=== PATIENT | male | born 1975 | race Caucasian/White ===

== ENCOUNTER 2016-03-30 15:44 | Emergency (ER) | payer MEDICARE ==
[2016-03-30 16:16] VITALS: BP 138/76
--- NOTE | 2016-03-30 16:39 | UC ---
Skin Complaint HPI - HPI Summary HPI Summary: abcess on back of neck, been there for a few days, denies any other areaas. - History of Current Complaint Chief Complaint: UCSkin Time Seen by Provider: 03/30/16 16:23 Stated Complaint: LUMP ON BACK OF NECK Hx Obtained From: Patient Onset/Duration: Sudden Onset, Lasting Days Skin Exposure Onset/Duration: Days Ago Timing: Constant Onset Severity: Moderate Current Severity: Moderate Pain Intensity: 6 Pain Scale Used: 0-10 Numeric Location: Discrete - back of neck Character: Pruritus, Redness, Raised Aggravating: Touch Alleviating: Nothing Associated Signs & Symptoms: Positive: Negative - Allergy/Home Medications Allergies/Adverse Reactions: Allergies Allergy/AdvReac Type Severity Reaction Status Date / Time Ibuprofen Allergy Severe "MY Verified 03/30/16 16:17 KIDNEYS SHUT DOWN" [place] [employer] Allergy Hives/Diff. Verified 03/30/16 16:17 Breathing/I tching Dextromethorphan AdvReac Intermediate Nausea Verified 03/30/16 16:17 [From Mucinex DM] Guaifenesin [From Mucinex DM] AdvReac Intermediate Nausea Verified 03/30/16 16: 17 Yellow Dye [From Mucinex DM] AdvReac Intermediate Nausea Verified 03/30/16 16:17 Home Medications: Home Medications Dulaglutide [Trulicity] 03/30/16 [History] Glipizide [Glucotrol] 10 mg PO 03/30/16 [History] Review of Systems Constitutional: Negative Skin: Other - abcess on neck Eyes: Negative ENT: Negative Respiratory: Negative Cardiovascular: Negative Gastrointestinal: Negative Genitourinary: Negative Motor: Negative Neurovascular: Negative Musculoskeletal: Negative Neurological: Negative Psychological: Negative All Other Systems Reviewed And Are Negative: Yes PMH/Surg Hx/FS Hx/Imm Hx Endocrine History Of: Reports: Diabetes Denies: Thyroid Disease Cardiovascular History Of: Reports: Hypertension Denies: Cardiac Disorders Respiratory History Of: Reports: Asthma Denies: COPD GI/ History Of: Denies: Ulcer - Surgical History Surgical History: Yes Surgery Procedure, Year, and Place: RIGHT WRIST FRACTURE, SCREWS PLACED. - Family History Known Family History: Positive: Hypertension, Diabetes - Social History Alcohol Use: None Substance Use Type: None Smoking Status (MU): Never Smoked Tobacco Physical Exam Triage Information Reviewed: Yes Appearance: Well-Appearing, Well-Nourished, Pain Distress Vital Signs: Initial Vital Signs Temp 98.2 F 03/30/16 16:11 Pulse 89 03/30/16 16:11 Resp 16 03/30/16 16:11 BP 138/76 03/30/16 16:11 Pulse Ox 98 03/30/16 16:11 Vital Signs Reviewed: Yes Eye Exam: Normal Eyes: Positive: Conjunctiva Clear ENT Exam: Normal ENT: Positive: Normal ENT inspection, Pharynx normal, TMs normal Dental Exam: Normal Neck exam: Normal Neck: Positive: Supple, Nontender, No Lymphadenopathy Respiratory Exam: Normal Respiratory: Positive: Chest non-tender, Lungs clear, Normal breath sounds Cardiovascular Exam: Normal Cardiovascular: Positive: RRR, No Murmur, Pulses Normal Abdominal Exam: Normal Abdomen Description: Positive: Nontender, No Organomegaly, Soft Bowel Sounds: Positive: Present Musculoskeletal Exam: Normal Musculoskeletal: Positive: Strength Intact, ROM Intact, No Edema Neurological Exam: Normal Neurological: Positive: Alert, Muscle Tone Normal Psychological Exam: Normal Skin Exam: Normal Course/Dx - Course Course Of Treatment: history obtained, exam performed, medication prescribed. - Differential Diagnoses - Skin Complaint Differential Diagnoses: Abscess, Cellulitis, MRSA - Diagnoses Provider Diagnoses: abcess Discharge - Discharge Plan Condition: Stable Disposition: HOME Prescriptions: Sulfamethox/Trimethoprim DS* [Bactrim DS 800/160 TAB*] 1 tab PO BID #14 tab Additional Instructions: take the medication as prescribed. I recommend warm compresses a few times daily. Keep area covered if it starts to drain. take the full dose of medication. follow up with any worsening symptoms.
== END 2016-03-30 17:06 | disposition home or self-care (01) ==
LOC: UCEAST 15:44
DX: L02.11 Cutaneous abscess of neck (principal); Z88.6 Allergy status to analgesic agent
CPT/HCPCS: 99212; G0463

== ENCOUNTER 2016-04-03 22:02 | Inpatient (IN) | payer MEDICARE ==
[2016-04-03] MEDS ORDERED: Morphine INJ* 4 MG/ML 1 ML CARPUJECT IV ONE (22:58)
[2016-04-03] MEDS ORDERED: Ondansetron INJ* 2 MG/ML VIAL IV ONE (23:00)
--- NOTE | 2016-04-03 23:14 | ED ---
Skin Complaint - HPI Summary HPI Summary: Poorly controlled diabetic pt here with infection on posterior Rt neck x 1 week. Was seen by and provided w/ bactrim PO which he's been taking but feels he's getting worse. Redness and pain are spreading - he feels warmth and pain into his Rt shoulder muscle past few days. Denies fever but has had some chills. Denies N/V/D. Mom squeezed the area to try to express material. Wound is scabbed now - pt is not sure if anything came out of wound. DM - currently poorly controlled as he hasn't been able to afford his insulins ( Trulicity and lantus) over the past month. He has been taking oral meds ( metformin, januvia, and glipizide). Glucose has been in the 200's since stopping insulin but he's typically in the 90's when he's taking meds. He's not taking insulin as his insurance changed when he got and he is no longer able to afford this. - History of Current Complaint Chief Complaint: EDRashSkinAbscess Time Seen by Provider: 04/03/16 22:44 Stated Complaint: POSS BACK OF NECK INFECTION/R SOULDER HOT TO TOUCH Hx Obtained From: Patient Pain Intensity: 10 - Allergy/Home Medications Allergies/Adverse Reactions: Allergies Allergy/AdvReac Type Severity Reaction Status Date / Time Ibuprofen Allergy Severe "MY Verified 03/30/16 16:17 KIDNEYS SHUT DOWN" [place] Oil Allergy Hives/Diff. Verified 03/30/16 16:17 Breathing/I tching Dextromethorphan AdvReac Intermediate Nausea Verified 03/30/16 16:17 [From Mucinex DM] Guaifenesin [From Mucinex DM] AdvReac Intermediate Nausea Verified 03/30/16 16: 17 Yellow Dye [From Mucinex DM] AdvReac Intermediate Nausea Verified 03/30/16 16:17 PMH/Surg Hx/FS Hx/Imm Hx Previously Healthy: Yes Endocrine/Hematology History: Reports: Hx Diabetes Denies: Hx Thyroid Disease Cardiovascular History: Reports: Hx Hypertension Respiratory History: Reports: Hx Asthma Denies: Hx Chronic Obstructive Pulmonary Disease (COPD) GI History: Denies: Hx Ulcer History: Reports: Other Problems/Disorders - kidney "issues" when he takes ibuprofen - Cancer History Cancer Type, Location and Year: none - Surgical History Surgery Procedure, Year, and Place: RIGHT WRIST FRACTURE, SCREWS PLACED. - Immunization History Date of Tetanus Vaccine: UNKNOWN Infectious Disease History: No Infectious Disease History: Denies: Hx Hepatitis, Hx Human Immunodeficiency Virus (HIV), Traveled Outside the [place] in Last 30 Days - Family History Known Family History: Positive: Hypertension, Diabetes, Other - cancer - Social History Lives: With Family - Alcohol Use: None Hx Substance Use: No Substance Use Type: Reports: None Hx Tobacco Use: No Smoking Status (MU): Never Smoked Tobacco Review of Systems Positive: Chills. Negative: Fever Eyes: Negative ENT: Negative Negative: Chest Pain Negative: Shortness Of Breath Gastrointestinal: Negative Positive: no symptoms reported Positive: Myalgia - see HPI Skin: Other - see HPI Negative: Weakness, Paresthesia, Numbness Positive: Anxious All Other Systems Reviewed And Are Negative: Yes Physical Exam Triage Information Reviewed: Yes Vital Signs On Initial Exam: Initial Vitals Temp Pulse Resp BP Pulse Ox 97.4 F 96 20 146/70 100 04/03/16 22:20 04/03/16 22:20 04/03/16 22:20 04/03/16 22:20 04/03/16 22:20 Vital Signs Reviewed: Yes Appearance: Positive: Well-Appearing, Pain Distress - pain w/ sitting up, engaging cervical muscle/Rt UE at the shoulder - moving elbow, wrist and hand well, Obese Skin: Positive: Warm, Dry - 4.5cm area of indurated erythema w/ overlying small , crusted yellow pustules and 1 black scab on Rt posterior paracervical area - no fluctuation, no drainage - TTP; tenderness progresses from area of erythema to over Rt trapezius muscle which is flesh colored and w/o warmth or induration Head/Face: Positive: Normal Head/Face Inspection Eyes: Positive: Normal, EOMI, Conjunctiva Clear ENT: Positive: Hearing grossly normal, Pharynx normal Neck: Positive: Tenderness @ Respiratory/Lung Sounds: Positive: Clear to Auscultation, Breath Sounds Present - distant breath sounds d/t body habitus Cardiovascular: Positive: Normal - distant heart sounds d/t body habitus, S1, S2 Bowel Sounds: Positive: Present Musculoskeletal: Positive: Strength/ROM Intact - strength intact in UE's however cervical ROM limited d/t pain Neurological: Positive: Normal, Sensory/Motor Intact, Alert, Oriented to Person Place, Time, CN Intact II-III Psychiatric: Positive: Normal Diagnostics - Vital Signs Vital Signs Temp Pulse Resp BP Pulse Ox 04/03/16 22:20 97.4 F 96 20 146/70 100 - Laboratory Result Diagrams: 04/03/16 23:10 04/03/16 23:10 Lab Statement: Any lab studies that have been ordered have been reviewed, and results considered in the medical decision making process. Course/Dx - Course Course Of Treatment: Poorly controlled diabetic pt here w/ worsening skin infection of Rt side of neck, now moving into shoulder. Failed 1 week of PO bactrim outpt and has developed chills. Labs indicate infection as well and confirm hyperglycemia. Pt also developed a fever while here. CT cervical tissue/ spine pending. Pt may benefit from surgery consult pending results. IV fluids, pain med, antipyretic and anbxs ordered. Spoke w/ Dr. Rico who will admit. - Differential Diagnoses - Skin Complaint Differential Diagnoses: Abscess, Cellulitis, MRSA - Diagnoses Provider Diagnoses: Cellulitis and abscess of neck - Physician Notifications Discussed Care Of Patient With: Dr. Hanks. Dr. Rico Discharge - Discharge Plan Condition: Stable Disposition: ADMITTED TO [facility] Referrals: Lise Davis MD [Primary Care Provider] -
[2016-04-03 23:30] LABS: Hematocrit 45 % (42-52); Hemoglobin 14.6 g/dl (14.0-18.0); Mean Corpuscular HGB Conc 32 g/dl (31-36); Mean Corpuscular Hemoglobin 27 pg (27-31); Mean Corpuscular Volume 84 fL (80-94); Mean Platelet Volume 8 um3 (7.4-10.4); Red Blood Count 5.38 10^6/ul (4.0-5.4); Red Cell Distribution Width 16 % (10.5-15); White Blood Count 18.2 10^3/ul (3.5-10.8)
[2016-04-03 23:36] LABS: Albumin 4.1 g/dL (3.2-5.2); BUN/Creatinine Ratio 20.7 (8-20); C Reactive Protein 201.94 mg/L (< 5.00); Calcium 9.4 mg/dL (8.6-10.3); EGFR African American 117.8 (>60); EGFR Non-African American 91.6 (>60); Globulin 3.1 g/dL (2-4); Total Bilirubin 0.5 mg/dL (0.2-1.0); Total Protein 7.2 g/dL (6.4-8.9)
[2016-04-03 23:46] LABS: Potassium 4.1 mmol/L (3.5-5.0)
[2016-04-03] MEDS ORDERED: Vancomycin(*) 1,000 MG in NS 0.9% 250 ML* 250 ML IVPB ONE (23:55)
[2016-04-03] MEDS ORDERED: Piperac/Tazob 3.375 gm in NS* 3.375 GM/100 ML BAG IVPB ONE (23:55)
[2016-04-04] MEDS ORDERED: Iodixanol* (CONTRAST) 320 MG/ML 100 ML SDV IV ONE (00:07)
[2016-04-04] MEDS ORDERED: Acetaminophen TAB* 325 MG PO ONE (00:10)
[2016-04-04] MEDS: NS 0.9% 1000 ML* 2,000 ML IV ONE (00:26)
[2016-04-04] MEDS ORDERED: Albuterol HFA INHALER* 8 gm MDI INH PRN (01:49)
[2016-04-04] MEDS ORDERED: Piperac/Tazob 3.375 gm in NS* 3.375 GM/100 ML BAG IVPB ONE (01:54)
[2016-04-04] MEDS ORDERED: Dextrose 50% Syringe 50 ML* 25 GM/50 ML SYRINGE IV PUSH PRN (01:54)
[2016-04-04] MEDS ORDERED: Morphine INJ* 4 MG/ML 1 ML CARPUJECT IV PRN ×2 (01:54→04:30)
[2016-04-04] MEDS ORDERED: Piperac/Tazob 3.375 gm in NS* 3.375 GM/100 ML BAG IVPB SCH (05:00)
[2016-04-04] MEDS: Heparin VIAL(*) 5000 UNITS/ML VIAL (FIVE THOUSAND) SUBCUT SCH ×3 (05:10→21:25)
[2016-04-04] MEDS: Piperac/Tazob 3.375 gm in NS* 3.375 GM/100 ML BAG IVPB SCH ×2 (05:10→12:08)
[2016-04-04 08:18] LABS: Hematocrit 40 % (42-52); Hemoglobin 12.9 g/dl (14.0-18.0); Mean Corpuscular HGB Conc 32 g/dl (31-36); Mean Corpuscular Hemoglobin 27 pg (27-31); Mean Corpuscular Volume 84 fL (80-94); Mean Platelet Volume 7 um3 (7.4-10.4); Red Blood Count 4.79 10^6/ul (4.0-5.4); Red Cell Distribution Width 16 % (10.5-15); White Blood Count 14.9 10^3/ul (3.5-10.8)
[2016-04-04 08:23] LABS: BUN/Creatinine Ratio 17.1 (8-20); Calcium 8.3 mg/dL (8.6-10.3); EGFR African American 134.5 (>60); EGFR Non-African American 104.6 (>60); Potassium 4.1 mmol/L (3.5-5.0)
[2016-04-04] MEDS: Insulin LISPRO* 1 UNITS UNIT SUBCUT SCH ×4 (08:59→22:11)
[2016-04-04] MEDS ORDERED: BuPROPion XL* 150 MG TAB.XL PO SCH (09:00)
[2016-04-04] MEDS: Mometasone/Formoter 200/5 MDI INH SCH ×2 (09:01→21:25)
[2016-04-04] MEDS: Lisinopril TAB* 10 MG PO SCH (09:01)
[2016-04-04] MEDS: Allopurinol TAB* 100 MG PO SCH ×2 (09:01→21:25)
[2016-04-04] MEDS: Cetirizine* 10 MG TAB PO SCH (09:01)
--- NOTE | 2016-04-04 09:02 | RAD ---
Indication: RIGHT posterior cervical infection extending into the RIGHT trapezius. Assess for extent of infection/abscess. Diabetic. Comparison: No relevant prior exams available on the [facility]. Technique: Contrast enhanced CT neck with 50 mL Visipaque 320 IV contrast. Multiplanar reformation. Report: Contrast enhancement appears suboptimal. RIGHT posterior midline to far RIGHT lateral posterior neck soft tissue inflammatory change with increased density in the subcutaneous tissue plane measuring up to 7 cm transverse by 2.7 cm AP by 10 cm cephalocaudal extending from the external occipital protuberance superiorly through the C3 level inferiorly. Associated dermal thickening. Involvement of the fascia and superficial muscles at the RIGHT posterior triangle and minimal involvement at the cephalad margin of the trapezius. Mild extension of the inflammatory process across the midline. No loculated abscess collection evident. No additional focus of soft tissue inflammatory change evident. Negative for lymphadenopathy by short axis size criteria. Mucosal thickening at the maxillary sinuses. Negative for paranasal sinus fluid levels. Negative for suspicious osseous lesions. IMPRESSION: The constellation of findings is consistent with RIGHT posterior neck cellulitis with extension to the superficial aspect of the posterior triangle skeletal muscular compartment with mild extension across the midline as described. No loculated abscess evident however suboptimal contrast enhancement mildly limits assessment. If clinically indicated consider repeat contrast-enhanced CT.
[2016-04-04] MEDS: BuPROPion XL* 300 MG TAB.XL PO SCH (09:11)
[2016-04-04] MEDS: Nystatin TOP POWDER* 15 GM BTL TOPICAL SCH ×2 (09:58→21:26)
[2016-04-04] MEDS ORDERED: Vancomycin(*) 1,250 MG in NS 0.9% 250 ML* 250 ML IVPB SCH (10:00)
--- NOTE | 2016-04-04 10:26 | HP ---
HISTORY AND PHYSICAL: DATE OF ADMISSION: 04/04/16 CHIEF COMPLAINT: Neck pain. HISTORY OF PRESENT ILLNESS: The patient is a 41-year-old gentleman who says about 2 weeks ago, he thinks he actually had a pimple that he scratched or tried to pop and it became worse and worse on the back of his neck. About 1 week ago, he noticed it was herrera and turning his neck was so painful. He went to his doctor and he got Bactrim, but he said it did not help. He then went to his mother who tried to squeeze it and it became significantly worse, hard, and quite painful. He has developed fevers, but no chills. He came to the ER today, was thought to have a furuncle on the back of his neck. PAST MEDICAL HISTORY: Significant for diabetes mellitus, hypertension, asthma, sleep apnea, depression, and gout. CURRENT MEDICATIONS: 1. Albuterol inhaler 2 puffs every 4 hours as needed. 2. Lantus insulin 30 units subcu at bedtime. 3. Invokana 1 tablet daily. 4. Glimepiride 2 mg twice daily. 5. Allopurinol 200 mg twice daily. 6. Advair Diskus 500/50 one puff twice daily. 7. Quinapril 20 mg daily. 8. Claritin 1 tablet daily. 9. Metformin 1000 mg twice daily. 10. Wellbutrin 75 mg twice daily. 11. Trulicity injection weekly. ALLERGIES: He has an allergy/adverse reaction to IBUPROFEN, ORANGE OIL, DEXTROMETHORPHAN, GUAIFENESIN, and YELLOW DYE. FAMILY HISTORY: Father is alive in his 60s, alive and well; mother is alive in her 60s, has hypertension, heart problem, and diabetes. SOCIAL HISTORY: No tobacco, alcohol, or recreational drug use. 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 He is . He has a stepchild. His , Alida Urbina, is his healthcare proxy. REVIEW OF SYSTEMS: A 14-point review of systems was completed with the patient. All pertinent positives and negatives are in the history of present illness, otherwise is negative. PHYSICAL EXAMINATION GENERAL: A pleasant gentleman, lying in bed, in no acute distress. VITAL SIGNS: Temperature 97.9 degrees, heart rate 82 beats per minute, respiratory rate 20 breaths per minute, pulse ox 97%, blood pressure 121/51. HEENT: Normocephalic, atraumatic. Pupils are equal, round, and reactive to light. Moist mucous membranes. NECK: Supple. No JVD, bruits, or palpable thyroid. He has a large, indurated , warm, erythematous area on the back of the patient's neck measuring at least 3 cm in diameter. CHEST: Clear to auscultation and percussion bilaterally. CARDIOVASCULAR: S1, S2 appreciated. ABDOMEN: Positive bowel sounds in all 4 quadrants. Morbidly obese. No rebound , no guarding, no rigidity. EXTREMITIES: No cyanosis or clubbing. He has got +2 pulses bilaterally. NEUROLOGIC: Alert and oriented x3. Moves all extremities. SKIN: Other than the aforementioned furuncle, no other abnormalities. DIAGNOSTIC STUDIES/LAB DATA: White count 18.2, hemoglobin 14.6, hematocrit 45 , platelets are 218. Sodium 124, potassium 4.1, chloride 95, CO2 18, BUN 19, creatinine 0.92, glucose 207. CRP is 201.94. Neck CT results are pending. ASSESSMENT AND PLAN: 1. Furuncle. I believe this is caused most likely by staph. For now, we will place him on vanc and Zosyn. May need surgical consult for I and D. Morphine p.r.n. for pain. If no improvement, may benefit from ID consult. 2. Depression, stable. Continue Wellbutrin. 3. Diabetes mellitus. Hold oral hyperglycemics. Place him on fingersticks with sliding scale insulin and continue Lantus dose. 4. Gout. Continue allopurinol. 5. Hypertension. Continue current regimen. Blood pressure adequately controlled. 6. FEN. Consistent carb diet. 7. DVT prophylaxis. Heparin subcu. 8. The patient is a full code. TIME SPENT: Over 80 minutes were spent on this H and P, more than 45 minutes were spent in direct [id number] contact with the patient in evaluation, physical exam, counseling, and coordination of care. CC: Dr. Davis * [id number]/[facility] #: [id number] MTDD
[2016-04-04] MEDS ORDERED: Acetaminophen TAB* 325 MG PO PRN (11:09)
--- NOTE | 2016-04-04 11:12 | PN ---
Subjective Date of Service: 04/04/16 Interval History: patient reports continued significant pain and tenderness at the back of his head. Reports it is possible there has been extension of swelling to right neck/ face. Denies difficulty swallowing. No further fevers/chills today. No N/V/D. Patient reports this started as what he thinks was a pimple 3 weeks ago, his mother tried to "pop it" several days ago and since has become more painful and has had fever and chills. Objective Active Medications: Albuterol (Ventolin Hfa Inhaler*) 2 puff INH Q4H PRN PRN Reason: SOB/WHEEZING Allopurinol (Zyloprim Tab*) 200 mg PO BID [facility] Last Admin: 04/04/16 09:01 Dose: 200 mg Bupropion HCl (Bupropion Xl*) 300 mg PO DAILY [facility] Last Admin: 04/04/16 09:11 Dose: 300 mg Cetirizine HCl (Zyrtec*) 10 mg PO DAILY [facility] Last Admin: 04/04/16 09:01 Dose: 10 mg Dextrose (D50w Syringe 50 Ml*) 12.5 gm IV PUSH .FOR FS < 60 - SS PRN PRN Reason: FS < 60 Heparin Sodium (Porcine) (Heparin Vial(*)) 5,000 units SUBCUT Q8HR [facility] Last Admin: 04/04/16 05:10 Dose: 5,000 units Vancomycin HCl 1,250 mg/ (Sodium Chloride) 250 mls @ 166.667 mls/hr IVPB Q8H [facility] PRN Reason: Protocol Last Admin: 04/04/16 09:52 Dose: 166.667 mls/hr Piperacillin Sod/Tazobactam Sod (Zosyn 3.375 Gm In Ns Premix*) 3.375 gm in 100 mls @ 200 mls/hr IVPB Q6H [facility] Last Admin: 04/04/16 05:10 Dose: 200 mls/hr Insulin Glargine (Lantus(*)) 30 units SUBCUT BEDTIME [facility] Insulin Human Lispro (Humalog*) 0 units SUBCUT ACHS [facility] PRN Reason: Protocol Last Admin: 04/04/16 08:59 Dose: 3 units Lisinopril (Prinivil Tab*) 20 mg PO DAILY [facility] Last Admin: 04/04/16 09:01 Dose: 20 mg Mometasone Furoate/Formoterol Fumar (Dulera 200/5 Mdi*) 2 puff INH BID [facility] Last Admin: 04/04/16 09:01 Dose: 2 puff Nystatin (Nystatin Top Powder*) 1 applic TOPICAL BID [facility] Last Admin: 04/04/16 09:58 Dose: 1 applic Pharmacy Profile Note (Vancomycin Trough Check) 1 note FOLLOW UP 0930 ONE Stop: 04/05/16 09:31 Vital Signs 04/04/16 04/04/16 04/04/16 02:00 02:23 02:30 Temperature Pulse Rate 95 95 89 Respiratory Rate Blood Pressure 101/40 108/59 110/47 (mmHg) O2 Sat by Pulse 95 94 95 Oximetry 04/04/16 04/04/16 04/04/16 03:30 04:37 05:04 Temperature 97.9 F Pulse Rate 83 Respiratory 20 20 18 Rate Blood Pressure 121/51 (mmHg) O2 Sat by Pulse 97 Oximetry 04/04/16 04/04/16 04/04/16 06:04 07:25 08:00 Temperature 98.5 F Pulse Rate 85 Respiratory 18 20 20 Rate Blood Pressure 134/51 (mmHg) O2 Sat by Pulse 98 Oximetry Oxygen Devices in Use Now: None Appearance: morbidly obese male laying in bed A+O x3 in NAD Eyes: No Scleral Icterus, PERRLA Ears/Nose/Mouth/Throat: NL Teeth, Lips, Gums, Mucous Membranes Moist Neck: NL Appearance and Movements; NL JVP Respiratory: Symmetrical Chest Expansion and Respiratory Effort, Clear to Auscultation Cardiovascular: NL Sounds; No Murmurs; No JVD, RRR, No Edema Abdominal: NL Sounds; No Tenderness; No Distention Lymphatic: No Cervical Adenopathy Extremities: No Edema, No Clubbing, Cyanosis Skin: - - posterior neck large area of erythema very tender to touch with scabbed area on lower portion -also with mild edema and tenderness down to left trapeze muscle and edema/tenderness to right lateral neck/face. Neurological: Alert and Oriented x 3, NL Sensation, NL Gait, NL Muscle Strength and Tone Lines/Tubes/Other Access: Clean, Dry and Intact Peripheral IV Nutrition: Taking PO's Result Diagrams: 04/04/16 08:01 04/04/16 08:01 Assess/Plan/Problems-Billing Assessment: 41 yo male with a PMH of morbid obesity, HTN, asthma, sleep apnea, and depression who presented to the ED on 04/03 with c/o neck pain found to have an abscess/cellulitis. - Patient Problems (1) cellulitis/abscess Comment: - No further fevers. Leukocytosis trending down. - Neck soft CT w/ showing no loculated area but is showing extension to the superfical aspect of the posterior triangle skeletal mucsular compartment with mild extension across the midline. May benefit from repeat contrast-enhanced CT - surgery consult - plan for I&D later today. Send wound cx - continue zosyn/vanco - blood cx pending - ID consult 04/05 (2) Diabetes Comment: - IDDM type 2- non-compliant with home medication due to cost. - FSBG ACHS with lispro SS and Lantus 30 units bedtime. Hold home oral medications. - check HgA1C - social work consult - Referral to [facility] (3) Morbid obesity with BMI of 60.0-69.9, adult (4) Asthma Comment: - controlled. - continue Dulera BID and albuterol prn (5) HTN (hypertension) Comment: - controlled. autosub Quinapril for Lisinopril (6) Sleep apnea Comment: - continue home cpap (7) Depression Comment: - continue wellbutrin (8) DVT prophylaxis Comment: - HSQ (9) Full code status Status and Disposition: inpatient with cellulitis and possible abscess requiring IV abx.
[2016-04-04] MEDS ORDERED: Morphine INJ* 2 MG/ML 1 ML CARPUJECT IV ONE (12:00)
[2016-04-04] MEDS: ceFAZolin 2 GM PREMIX (*) 2 GM/50 ML BAG IVPB SCH ×2 (17:22→22:16)
[2016-04-04] MEDS: oxyCODONE TAB* 5 MG TAB PO PRN (21:25)
[2016-04-04] MEDS: Insulin GLARGINE(*) 1 UNITS UNIT SUBCUT SCH (22:11)
--- NOTE | 2016-04-05 02:58 | OP ---
DATE OF OPERATION: 04/04/16 - ROOM #351 DATE OF : 79 SURGEON: Aly Curiel MD PRE-OP DIAGNOSIS: POST-OP DIAGNOSIS: OPERATIVE PROCEDURE: HISTORY/INDICATION FOR PROCEDURE: The patient is a 41-year-old male, who is a hypertensive diabetic with morbid obesity, who presents with increasing pain and swelling in the back of his neck. He tried to drain this at home without success and now presents with increasing pain, swelling and redness. He does not recall having had any procedure or any surgery in this region before. He thinks there was like a little pimple or something there before. On examination today, he is morbidly obese. On the back of the neck, there is an area of cellulitis covering at least 15 x 20 cm. In the center is an area of induration that is at least 10 x 7 cm and in the center of this is an area of at least 3 x 4 cm, which has a central scabby area and multiple little punctate areas of purulence, this suggests more of a furunculosis. I discussed this with him and I recommend incision and drainage of this. I did review the imaging, which is equivocal for abscess, but I think clinically this needs to be opened up and cultured, so I discussed this with him and he is agreeable to this approach. DESCRIPTION OF PROCEDURE: Therefore, the area was prepped with Betadine, local anesthetic 1% plain lidocaine was utilized and approximately 3-cm incision was created. Purulent material was forthcoming. I then wedged out a little piece of the tissue and sent that in a sterile container for culture as well. After the pus was expressed, the cavity was packed with a corner of a 4x4 followed by a bulky gauze dressing and we will continue to follow him along with you. CC: Dr. Davis * [id number]/[facility] #: [id number] TAVO
[2016-04-05] MEDS: ceFAZolin 2 GM PREMIX (*) 2 GM/50 ML BAG IVPB SCH ×4 (05:25→22:53)
[2016-04-05] MEDS: Heparin VIAL(*) 5000 UNITS/ML VIAL (FIVE THOUSAND) SUBCUT SCH ×3 (05:25→21:22)
[2016-04-05] MEDS: oxyCODONE TAB* 5 MG TAB PO PRN ×4 (05:25→23:14)
--- NOTE | 2016-04-05 06:50 | PN ---
Subjective Date of Service: 04/05/16 Interval History: pt reports he sleep fairly well last night for the first time in weeks. Continues to have significant pain at the back of his neck but reports it is slightly better today. No fever, chills, N/V/D. Reports good appetite. Is interested in following up with [facility] as an outpt Objective Active Medications: Acetaminophen (Tylenol Tab*) 650 mg PO Q6H PRN PRN Reason: FEVER/PAIN Last Admin: 04/04/16 16:53 Dose: 650 mg Albuterol (Ventolin Hfa Inhaler*) 2 puff INH Q4H PRN PRN Reason: SOB/WHEEZING Allopurinol (Zyloprim Tab*) 200 mg PO BID [facility] Last Admin: 04/04/16 21:25 Dose: 200 mg Bupropion HCl (Bupropion Xl*) 300 mg PO DAILY [facility] Last Admin: 04/04/16 09:11 Dose: 300 mg Cetirizine HCl (Zyrtec*) 10 mg PO DAILY [facility] Last Admin: 04/04/16 09:01 Dose: 10 mg Dextrose (D50w Syringe 50 Ml*) 12.5 gm IV PUSH .FOR FS < 60 - SS PRN PRN Reason: FS < 60 Heparin Sodium (Porcine) (Heparin Vial(*)) 5,000 units SUBCUT Q8HR [facility] Last Admin: 04/05/16 05:25 Dose: 5,000 units Cefazolin Sodium/Dextrose (Kefzol Premix(*)) 2 gm in 50 mls @ 100 mls/hr IVPB Q6H [facility] Last Admin: 04/05/16 05:25 Dose: 100 mls/hr Insulin Glargine (Lantus(*)) 30 units SUBCUT BEDTIME [facility] Last Admin: 04/04/16 22:11 Dose: 30 units Insulin Human Lispro (Humalog*) 0 units SUBCUT ACHS [facility] PRN Reason: Protocol Last Admin: 04/04/16 22:11 Dose: 3 units Lisinopril (Prinivil Tab*) 20 mg PO DAILY [facility] Last Admin: 04/04/16 09:01 Dose: 20 mg Mometasone Furoate/Formoterol Fumar (Dulera 200/5 Mdi*) 2 puff INH BID [facility] Last Admin: 04/04/16 21:25 Dose: 2 puff Nystatin (Nystatin Top Powder*) 1 applic TOPICAL BID [facility] Last Admin: 04/04/16 21:26 Dose: 1 applic Oxycodone HCl (Roxycodone Tab*) 5 mg PO Q4H PRN PRN Reason: PAIN Last Admin: 04/05/16 05:25 Dose: 5 mg Pharmacy Profile Note (Vancomycin Trough Check) 1 note FOLLOW UP 929 ONE Stop: 04/05/16 09:31 Vital Signs 04/04/16 04/04/16 04/04/16 07:25 08:00 11:10 Temperature 98.5 F 98.9 F Pulse Rate 85 91 Respiratory 20 20 20 Rate Blood Pressure 134/51 128/46 (mmHg) O2 Sat by Pulse 98 96 Oximetry 04/04/16 04/04/16 04/04/16 12:25 13:25 15:46 Temperature 99.0 F Pulse Rate 72 Respiratory 18 18 20 Rate Blood Pressure 118/50 (mmHg) O2 Sat by Pulse 95 Oximetry 04/04/16 04/04/16 04/04/16 16:16 20:09 20:45 Temperature 99.0 F 98.9 F Pulse Rate 72 89 Respiratory 20 16 24 Rate Blood Pressure 118/50 136/67 (mmHg) O2 Sat by Pulse 95 99 Oximetry 04/04/16 04/04/16 04/04/16 21:25 22:30 23:25 Temperature Pulse Rate Respiratory 20 20 20 Rate Blood Pressure (mmHg) O2 Sat by Pulse Oximetry 04/04/16 04/05/16 04/05/16 23:58 03:33 05:25 Temperature 98.9 F 98.6 F Pulse Rate 87 82 Respiratory 20 18 20 Rate Blood Pressure 111/44 103/47 (mmHg) O2 Sat by Pulse 98 98 Oximetry Appearance: morbid obese male sitting up in a chair in NAD. A+Ox3 Eyes: No Scleral Icterus, PERRLA Ears/Nose/Mouth/Throat: NL Teeth, Lips, Gums, Mucous Membranes Moist Neck: NL Appearance and Movements; NL JVP Respiratory: Symmetrical Chest Expansion and Respiratory Effort, Clear to Auscultation Cardiovascular: NL Sounds; No Murmurs; No JVD, RRR Abdominal: NL Sounds; No Tenderness; No Distention, - - obese Extremities: No Clubbing, Cyanosis Skin: - - [id number] edematous area at posterior left neck, very tender, incision from I&D packed with gauze with dried blood. tenderness to right lateral neck, left trap muscle Neurological: Alert and Oriented x 3, NL Sensation, NL Gait, NL Muscle Strength and Tone Lines/Tubes/Other Access: Clean, Dry and Intact Peripheral IV Nutrition: Taking PO's Result Diagrams: 04/05/16 06:50 04/05/16 06:50 Microbiology and Other Data: Microbiology 04/04/16 12:30 Skin and Soft Tissue MRSA/MSSA (PCR - Final Neck Mrsa Negative S.aureus Positive Gram Stain - Final 04/04/16 12:30 Wound Gram Stain - Final Tissue - Not Otherwise Specified Skin and Soft Tissue MRSA/MSSA (PCR - Final Mrsa Negative S.aureus Positive Assess/Plan/Problems-Billing Assessment: 41 yo male with a PMH of morbid obesity, HTN, asthma, sleep apnea, and depression who presented to the ED on 04/03 with c/o neck pain found to have an abscess/cellulitis. - Patient Problems (1) cellulitis/abscess Comment: - No further fevers. Leukocytosis trending down. - Neck soft CT w/ showing no loculated area but is showing extension to the superfical aspect of the posterior triangle skeletal mucsular compartment with mild extension across the midline. - appreciate surgery consult - I&D on 04/04, cx growing staph. - blood cx no growth Day 1 - ID consult 04/05 - continue Ancef (2) Diabetes Comment: - uncontrolled - IDDM type 2- non-compliant with home medication due to cost. - FSBG ACHS with lispro SS and Lantus 30 units bedtime. Hold home oral medications. - HgA1C 8.8 down form 10.8 last year - social work consult for help with medications - Referral to [facility] (3) Morbid obesity with BMI of 60.0-69.9, adult Comment: - referral to [facility] (4) Asthma Comment: - controlled. - continue Dulera BID and albuterol prn (5) HTN (hypertension) Comment: - controlled. autosub Quinapril for Lisinopril (6) Sleep apnea Comment: - continue home cpap (7) Depression Comment: - continue wellbutrin (8) DVT prophylaxis Comment: - HSQ (9) Full code status Status and Disposition: inpatient with cellulitis/abscess requiring IV abx. ID consult pending. Pt will go home at discharge. Possible [facility]NS referral.
[2016-04-05 07:26] LABS: Hematocrit 40 % (42-52); Hemoglobin 12.8 g/dl (14.0-18.0); Mean Corpuscular HGB Conc 32 g/dl (31-36); Mean Corpuscular Hemoglobin 27 pg (27-31); Mean Corpuscular Volume 84 fL (80-94); Mean Platelet Volume 8 um3 (7.4-10.4); Red Blood Count 4.76 10^6/ul (4.0-5.4); Red Cell Distribution Width 16 % (10.5-15)
[2016-04-05 07:35] LABS: BUN/Creatinine Ratio 16.9 (8-20); Calcium 8.6 mg/dL (8.6-10.3); EGFR African American 158.8 (>60); EGFR Non-African American 123.5 (>60)
[2016-04-05] MEDS: BuPROPion XL* 300 MG TAB.XL PO SCH (08:54)
[2016-04-05] MEDS: Allopurinol TAB* 100 MG PO SCH ×2 (08:54→21:18)
[2016-04-05] MEDS: Cetirizine* 10 MG TAB PO SCH (08:54)
[2016-04-05] MEDS: Insulin LISPRO* 1 UNITS UNIT SUBCUT SCH ×4 (08:54→21:19)
[2016-04-05] MEDS: Lisinopril TAB* 10 MG PO SCH (08:54)
[2016-04-05] MEDS: Mometasone/Formoter 200/5 MDI INH SCH ×2 (08:56→21:22)
[2016-04-05] MEDS ORDERED: Vancomycin Trough Check NOTE FOLLOW UP ONE (09:30)
[2016-04-05] MEDS: Nystatin TOP POWDER* 15 GM BTL TOPICAL SCH ×2 (13:30→21:22)
--- NOTE | 2016-04-05 16:50 | CONS ---
CONSULTATION REPORT: DATE OF CONSULT: 04/05/16 REQUESTING PROVIDER: Terrie Nolna NP CONSULTING SERVICE: Infectious Disease. REASON FOR CONSULTATION: Posterior neck abscess. IMPRESSION: 1. Posterior neck abscess with associated cellulitis and infective myositis status post incision and debridement. Gram stain showed gram-positive cocci. PCR positive for Staph aureus and negative for MRSA. The cultures pending. Blood cultures negative. 2. Diabetes. 3. Morbid obesity. RECOMMENDATIONS: Continue Ancef 2 g IV every 6 hours to cover Staph aureus as you have done. I will follow the range of motion of his neck for signs and symptoms of improvement in his myositis; if not improving, would consider clindamycin, repeat imaging to look for deeper abscess formation since the initial surgery antibiotics. HISTORY OF PRESENT ILLNESS: This is a 41-year-old male with morbid obesity and poorly-controlled insulin-dependent diabetes admitted with posterior neck pain and swelling. That had been there about a couple of weeks. His mom tried to rupture the what had come to a head there without much success. He has had fever, chills, and sweats at home for a few days as well. CT scan with findings as above, which did not show purulent or fluid collection. Because of his symptoms though, he was seen by Dr. Curiel, who did an I and D and drained pus with cultures as above. He was on vancomycin and Zosyn, which was switched to cefazolin today. His white count is 14 down from 18 on the 4th. His creatinine has been stable. He has not had an infection like this in the past. PAST MEDICAL HISTORY: 1. Type 2 diabetes, on insulin. 2. Hypertension. 3. Asthma. 4. Morbid obesity. 5. Sleep apnea. 6. Depression. 7. Gout. MEDICATIONS: 1. Ancef 2 g IV every 6 hours. 2. Tylenol. 3. Albuterol. 4. Bupropion. 5. Cetirizine. 6. Heparin subcutaneous injection. 7. Insulin glargine. 8. Lisinopril. 9. Oxycodone p.r.n. ALLERGIES: DEXTROMETHORPHAN, GUAIFENESIN, DYE, and IBUPROFEN. FAMILY HISTORY: Positive for diabetes. No recurrent infection. SOCIAL HISTORY: Lives in [place]. No travel or sick contacts. REVIEW OF SYSTEMS: All negative except as noted above. PHYSICAL EXAM: General: He is not in distress or diaphoretic. Vital Signs: Temperature is 36.7, heart rate 80, respiratory rate 16, blood pressure 130/60, and O2 sat 100% on room air. Neurological: He is awake and oriented x3. Follows all commands. Moves all extremities. Answers all questions. Musculoskeletal: There is decreased range of motion of neck rotation. There is no spine tenderness to palpation. No joint synovitis. HEENT: There is no conjunctival hemorrhage. Oropharynx without lesions. Neck: Neck is supple without nuchal rigidity. Lymph Nodes: There is no cervical, supraclavicular, inguinal, axillary, or epitrochlear lymphadenopathy. Lungs: Clear to auscultation bilaterally. Heart: Regular rate and rhythm without murmurs, rubs , or gallops. Abdomen: Obese, nontender, and nondistended with bowel sounds present. Skin: There are no rashes or splinter hemorrhages. On the posterior right neck, there is a centimeter incision with some serous drainage and packing. There is surrounding induration, erythema, and tenderness. There is no fluctuance or crepitus. DIAGNOSTIC STUDIES/LAB DATA: Creatinine 0.7. White blood cell count 14, hemoglobin 12, and platelets 237. Blood cultures negative 24 hours. Please see impressions and recommendations as outlined above, which I have discussed with Terrie Nolan NP. Thanks for asking me to see Mr. Urbina in consultation. [id number]/CPS #: [id number] MTDD
[2016-04-05] MEDS: Insulin GLARGINE(*) 1 UNITS UNIT SUBCUT SCH (21:19)
[2016-04-05] MEDS: NS 0.9% 1000 ML* 1,000 ML IV SCH (22:53)
[2016-04-06] MEDS ORDERED: Morphine INJ* 2 MG/ML 1 ML CARPUJECT IV ONE (03:11)
[2016-04-06] MEDS ORDERED: Docusate CAP* 100 MG PO PRN (03:12)
[2016-04-06] MEDS ORDERED: Senna TAB PO PRN (03:12)
[2016-04-06] MEDS ORDERED: Morphine INJ* 2 MG/ML 1 ML CARPUJECT ONE (03:15)
[2016-04-06] MEDS: ceFAZolin 2 GM PREMIX (*) 2 GM/50 ML BAG IVPB SCH ×4 (05:36→23:01)
[2016-04-06] MEDS: Heparin VIAL(*) 5000 UNITS/ML VIAL (FIVE THOUSAND) SUBCUT SCH ×3 (05:37→21:12)
[2016-04-06 06:53] LABS: Hematocrit 39 % (42-52); Hemoglobin 12.8 g/dl (14.0-18.0); Mean Corpuscular HGB Conc 33 g/dl (31-36); Mean Corpuscular Hemoglobin 28 pg (27-31); Mean Corpuscular Volume 84 fL (80-94); Mean Platelet Volume 7 um3 (7.4-10.4); Red Blood Count 4.62 10^6/ul (4.0-5.4); Red Cell Distribution Width 16 % (10.5-15); White Blood Count 8.8 10^3/ul (3.5-10.8)
[2016-04-06 07:00] LABS: BUN/Creatinine Ratio 21.2 (8-20); Calcium 8.6 mg/dL (8.6-10.3); EGFR African American 172.8 (>60); EGFR Non-African American 134.4 (>60)
--- NOTE | 2016-04-06 07:06 | PN ---
Subjective Date of Service: 04/06/16 Interval History: patient reports continued pain at posterior neck stating "it is very sensitive" No fevers or chills. No N/V/D. good ROM in neck but states it is painful. No difficulty swallowing. Objective Active Medications: Acetaminophen (Tylenol Tab*) 650 mg PO Q6H PRN PRN Reason: FEVER/PAIN Last Admin: 04/04/16 16:53 Dose: 650 mg Albuterol (Ventolin Hfa Inhaler*) 2 puff INH Q4H PRN PRN Reason: SOB/WHEEZING Allopurinol (Zyloprim Tab*) 200 mg PO BID [facility] Last Admin: 04/05/16 21:18 Dose: 200 mg Bupropion HCl (Bupropion Xl*) 300 mg PO DAILY [facility] Last Admin: 04/05/16 08:54 Dose: 300 mg Cetirizine HCl (Zyrtec*) 10 mg PO DAILY [facility] Last Admin: 04/05/16 08:54 Dose: 10 mg Dextrose (D50w Syringe 50 Ml*) 12.5 gm IV PUSH .FOR FS < 60 - SS PRN PRN Reason: FS < 60 Docusate Sodium (Colace Cap*) 100 mg PO BID PRN PRN Reason: CONSTIPATION Heparin Sodium (Porcine) (Heparin Vial(*)) 5,000 units SUBCUT Q8HR [facility] Last Admin: 04/06/16 05:37 Dose: 5,000 units Cefazolin Sodium/Dextrose (Kefzol Premix(*)) 2 gm in 50 mls @ 100 mls/hr IVPB Q6H [facility] Last Admin: 04/06/16 05:36 Dose: 100 mls/hr Sodium Chloride (Ns 0.9% 1000 Ml*) 1,000 mls @ 125 mls/hr IV PER RATE [facility] Stop: 04/06/16 18:14 Last Admin: 04/05/16 22:53 Dose: 125 mls/hr Insulin Glargine (Lantus(*)) 30 units SUBCUT BEDTIME [facility] Last Admin: 04/05/16 21:19 Dose: 30 units Insulin Human Lispro (Humalog*) 0 units SUBCUT ACHS [facility] PRN Reason: Protocol Last Admin: 04/05/16 21:19 Dose: 6 units Lisinopril (Prinivil Tab*) 20 mg PO DAILY [facility] Last Admin: 04/05/16 08:54 Dose: 20 mg Mometasone Furoate/Formoterol Fumar (Dulera 200/5 Mdi*) 2 puff INH BID [facility] Last Admin: 04/05/16 21:22 Dose: 2 puff Nystatin (Nystatin Top Powder*) 1 applic TOPICAL BID [facility] Last Admin: 04/05/16 21:22 Dose: 1 applic Oxycodone HCl (Roxycodone Tab*) 10 mg PO Q4H PRN PRN Reason: PAIN Last Admin: 04/05/16 23:14 Dose: 10 mg Senna (Senokot Tab*) 1 tab PO BEDTIME PRN PRN Reason: CONSTIPATION Vital Signs 04/05/16 04/05/16 04/05/16 07:25 07:40 08:00 Temperature 98.0 F Pulse Rate 84 Respiratory 16 16 16 Rate Blood Pressure 128/63 (mmHg) O2 Sat by Pulse 100 Oximetry 04/05/16 04/05/16 04/05/16 09:36 11:36 12:01 Temperature 98.0 F Pulse Rate 84 Respiratory 16 18 20 Rate Blood Pressure 130/68 (mmHg) O2 Sat by Pulse 99 Oximetry 04/05/16 04/05/16 04/05/16 15:28 19:04 20:02 Temperature 97.9 F 97.6 F Pulse Rate 86 88 Respiratory 18 16 16 Rate Blood Pressure 129/56 122/64 (mmHg) O2 Sat by Pulse 100 99 Oximetry 04/05/16 04/05/16 04/05/16 21:04 23:14 23:15 Temperature 97.9 F Pulse Rate 89 Respiratory 18 20 16 Rate Blood Pressure 126/71 (mmHg) O2 Sat by Pulse 99 Oximetry 04/06/16 04/06/16 04/06/16 01:14 03:19 03:41 Temperature 98.3 F Pulse Rate 83 Respiratory 16 20 16 Rate Blood Pressure 106/46 (mmHg) O2 Sat by Pulse 98 Oximetry 04/06/16 04:19 Temperature Pulse Rate Respiratory 16 Rate Blood Pressure (mmHg) O2 Sat by Pulse Oximetry Oxygen Devices in Use Now: None Appearance: posterior neck abscess Eyes: No Scleral Icterus, PERRLA Ears/Nose/Mouth/Throat: - - poor denition Neck: NL Appearance and Movements; NL JVP, - - full ROM Respiratory: Symmetrical Chest Expansion and Respiratory Effort, Clear to Auscultation Cardiovascular: NL Sounds; No Murmurs; No JVD, RRR, No Edema Abdominal: NL Sounds; No Tenderness; No Distention, - - obese Extremities: No Edema, No Clubbing, Cyanosis Skin: - - posterior neck - erythema, induration - wound s/p ID packed with gauze that appears to be bloody, with exudate noted. very tender to touch, appears to be similiar to yesterdays exam Neurological: Alert and Oriented x 3, NL Sensation, NL Gait, NL Muscle Strength and Tone Lines/Tubes/Other Access: Clean, Dry and Intact Peripheral IV Nutrition: Taking PO's Result Diagrams: 04/06/16 06:15 04/06/16 06:15 Microbiology and Other Data: Microbiology 04/04/16 12:30 Skin and Soft Tissue MRSA/MSSA (PCR - Final Neck Mrsa Negative S.aureus Positive Gram Stain - Final 04/04/16 12:30 Wound Gram Stain - Final Tissue - Not Otherwise Specified Skin and Soft Tissue MRSA/MSSA (PCR - Final Mrsa Negative S.aureus Positive Assess/Plan/Problems-Billing Assessment: 41 yo male with a PMH of morbid obesity, HTN, asthma, sleep apnea, and depression who presented to the ED on 04/03 with c/o neck pain found to have an abscess/cellulitis. - Patient Problems (1) cellulitis/abscess Comment: - Posterior neck abscess with cellulitis and infective myositis s/p I&D and debridement. - wound/tissue cx growing staph. - No further fevers. Leukocytosis resolved. - Neck soft CT w/ showing no loculated area but is showing extension to the superfical aspect of the posterior triangle skeletal mucsular compartment with mild extension across the midline. - appreciate surgery consult - I&D on 04/04 - ID consult 04/05 - repeat CT neck, continue Ancef - blood cx no growth Day 2 (2) Diabetes Comment: - uncontrolled - IDDM type 2- non-compliant with home medication due to cost. - FSBG ACHS with lispro SS and Lantus 30 units bedtime. Hold home oral medications. - HgA1C 8.8 down from 10.8 last year - social work consult for help with medications - Referral to [facility] (3) Morbid obesity with BMI of 60.0-69.9, adult Comment: - referral to [facility] (4) Asthma Comment: - controlled. - continue Dulera BID and albuterol prn (5) HTN (hypertension) Comment: - controlled. autosub Quinapril for Lisinopril (6) Sleep apnea Comment: - continue home cpap (7) Depression Comment: - continue wellbutrin (8) DVT prophylaxis Comment: - HSQ (9) Full code status Status and Disposition: inpatient with cellulitis/abscess requiring IV abx. ID consult and surgery following. Pt will go home at discharge. Possible [facility]NS referral.
[2016-04-06] MEDS ORDERED: Iodixanol* (CONTRAST) 320 MG/ML 100 ML SDV IV ONE (07:19)
[2016-04-06] MEDS: NS 0.9% 1000 ML* 1,000 ML IV SCH (08:33)
--- NOTE | 2016-04-06 09:07 | RAD ---
INDICATION: Posterior neck cellulitis, myositis, abscess. Post I and D April 04, 2015. COMPARISON: April 04, 2016 TECHNIQUE: Multidetector CT images skull base to lung apices with 50 mL Visipaque 320 IV contrast. Multiplanar reformation. REPORT: No significant change in irregularly margined inflammatory change with infiltrative edema centered at the RIGHT posterior neck subcutaneous tissue plane with involvement of the dermal tissue plane and superficial aspect of the posterior triangle muscular compartment and cephalad margin of the trapezius. The region of soft tissue abnormality measures up to 3 cm AP by 7 cm transverse and extends from the level of the occipital protuberance at the cephalad margin to the cephalad aspect of the trapezius inferiorly measuring approximate 10 cm cephalocaudal. Skin contour irregularity corresponding with history of surgical incision and drainage. No subcutaneous emphysema evident. No well marginated loculated abscess collection identified. Negative for lymphadenopathy by short axis size criteria. Patent bilateral internal jugular veins. The lung apices remain clear. No suspicious osseous lesions evident. Unchanged finding of mucosal thickening at the maxillary sinuses without air-fluid levels. IMPRESSION: No significant interval change in inflammatory process primarily involving the RIGHT posterior neck subcutaneous tissue plane with involvement of the dermis and superficial involvement of the subjacent posterior triangle skeletal musculature compared with the April 04, 2016 exam. Skin contour irregularity corresponding with history of surgical incision and drainage. No subcutaneous emphysema evident. No well marginated loculated abscess collection identified.
[2016-04-06] MEDS: Insulin LISPRO* 1 UNITS UNIT SUBCUT SCH ×4 (09:11→21:12)
[2016-04-06] MEDS: Lisinopril TAB* 10 MG PO SCH (09:13)
[2016-04-06] MEDS: Cetirizine* 10 MG TAB PO SCH (09:13)
[2016-04-06] MEDS: Allopurinol TAB* 100 MG PO SCH ×2 (09:13→21:20)
[2016-04-06] MEDS: oxyCODONE TAB* 5 MG TAB PO PRN ×2 (09:14→21:20)
[2016-04-06] MEDS: BuPROPion XL* 300 MG TAB.XL PO SCH (09:17)
[2016-04-06] MEDS: Mometasone/Formoter 200/5 MDI INH SCH ×2 (09:17→21:22)
[2016-04-06] MEDS: Nystatin TOP POWDER* 15 GM BTL TOPICAL SCH ×2 (09:18→21:23)
--- NOTE | 2016-04-06 12:42 | CONSULT ---
Subjective Reason for Visit: Type 2 diabetes with hyperglycemia - diabetes education Admission Date: 04/04/16 History Of Present Illness: 41 year old male admitted with complaints of neck pain. He was found to have a neck abscess with cellulitis and had drainage and debridement in the operating room. He is continuing to receive antibiotic treatment for the infection. He has had type 2 diabetes for over 5 years but can not remember receiving diabetic education. His HgbA1C on admission was 8.8%. Patient History Surgical History: Yes Surgery Procedure, Year, and Place: RIGHT WRIST FRACTURE, SCREWS PLACED. 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 Verified 03/30/16 16:17 Breathing/I tching Dextromethorphan AdvReac Intermediate Nausea Verified 03/30/16 16:17 [From Mucinex DM] Guaifenesin [From Mucinex DM] AdvReac Intermediate Nausea Verified 03/30/16 16: 17 Yellow Dye [From Mucinex DM] AdvReac Intermediate Nausea Verified 03/30/16 16:17 Home Medications Medication Instructions Recorded Confirmed Type Allopurinol 2 tab PO BID 08/15/12 04/04/16 History LoraTADine TAB(NF) [Claritin 1 tab PO DAILY 08/15/12 04/04/16 History TAB(NF)] metFORMIN* [Glucophage*] 1,000 mg PO BID 08/15/12 04/04/16 History Fluticasone-Salmeterol 500-50* 1 puff INH BID 11/15/12 04/04/16 History [Advair Diskus 500-50*] Quinapril HCl 20 mg PO DAILY 11/15/12 04/04/16 History buPROPion TAB* [Wellbutrin TAB*] 75 mg PO BID 11/15/12 04/04/16 History Dulaglutide [Trulicity] INJ WEEKLY 03/30/16 History Albuterol HFA INHALER* [Ventolin 2 puff INH Q4H PRN 04/04/16 04/04/16 History HFA Inhaler*] Glimepiride [Amaryl] 2 mg PO BID 04/04/16 04/04/16 History Invokana (NF) 1 tab PO DAILY 04/04/16 04/06/16 History Lantus 30 units INJ BEDTIME 04/04/16 04/06/16 History Wellbutrin TAB* 300 mg PO DAILY 04/04/16 04/06/16 History Hospital Medications: Current Medications Acetaminophen (Tylenol Tab*) 650 mg PO Q6H PRN PRN Reason: FEVER/PAIN Last Admin: 04/04/16 16:53 Dose: 650 mg Albuterol (Ventolin Hfa Inhaler*) 2 puff INH Q4H PRN PRN Reason: SOB/WHEEZING Allopurinol (Zyloprim Tab*) 200 mg PO BID [facility] Last Admin: 04/06/16 09:13 Dose: 200 mg Bupropion HCl (Bupropion Xl*) 300 mg PO DAILY [facility] Last Admin: 04/06/16 09:17 Dose: 300 mg Cetirizine HCl (Zyrtec*) 10 mg PO DAILY [facility] Last Admin: 04/06/16 09:13 Dose: 10 mg Dextrose (D50w Syringe 50 Ml*) 12.5 gm IV PUSH .FOR FS < 60 - SS PRN PRN Reason: FS < 60 Docusate Sodium (Colace Cap*) 100 mg PO BID PRN PRN Reason: CONSTIPATION Heparin Sodium (Porcine) (Heparin Vial(*)) 5,000 units SUBCUT Q8HR [facility] Last Admin: 04/06/16 05:37 Dose: 5,000 units Cefazolin Sodium/Dextrose (Kefzol Premix(*)) 2 gm in 50 mls @ 100 mls/hr IVPB Q6H [facility] Last Admin: 04/06/16 11:53 Dose: 100 mls/hr Sodium Chloride (Ns 0.9% 1000 Ml*) 1,000 mls @ 125 mls/hr IV PER RATE [facility] Stop: 04/06/16 18:14 Last Admin: 04/06/16 08:33 Dose: 125 mls/hr Insulin Glargine (Lantus(*)) 30 units SUBCUT BEDTIME [facility] Last Admin: 04/05/16 21:19 Dose: 30 units Insulin Human Lispro (Humalog*) 0 units SUBCUT ACHS [facility] PRN Reason: Protocol Last Admin: 04/06/16 11:59 Dose: Not Given Lisinopril (Prinivil Tab*) 20 mg PO DAILY [facility] Last Admin: 04/06/16 09:13 Dose: 20 mg Mometasone Furoate/Formoterol Fumar (Dulera 200/5 Mdi*) 2 puff INH BID [facility] Last Admin: 04/06/16 09:17 Dose: 2 puff Nystatin (Nystatin Top Powder*) 1 applic TOPICAL BID [facility] Last Admin: 04/06/16 09:18 Dose: 1 applic Oxycodone HCl (Roxycodone Tab*) 10 mg PO Q4H PRN PRN Reason: PAIN Last Admin: 04/06/16 09:14 Dose: 10 mg Senna (Senokot Tab*) 1 tab PO BEDTIME PRN PRN Reason: CONSTIPATION Lab Data: Sodium 134 mmol/L (133-145) 04/06/16 06:15 Potassium 4.0 mmol/L (3.5-5.0) 04/06/16 06:15 BUN 14 mg/dL (6-24) 04/06/16 06:15 Creatinine 0.66 mg/dL (0.67-1.17) L 04/06/16 06:15 Hemoglobin A1c 8.8 % (Less than 6.0) H 04/04/16 08:01 Calcium 8.6 mg/dL (8.6-10.3) 04/06/16 06:15 AST 13 U/L (13-39) 04/03/16 23:10 ALT 15 U/L (7-52) 04/03/16 23:10 Vital Signs: Vital Signs 04/06/16 04/06/16 04/06/16 07:35 09:14 11:14 Temperature 97.6 F Pulse Rate 81 Respiratory 16 18 16 Rate Blood Pressure 127/66 (mmHg) O2 Sat by Pulse 94 Oximetry 04/06/16 11:50 Temperature 97.4 F Pulse Rate 84 Respiratory 18 Rate Blood Pressure 129/62 (mmHg) O2 Sat by Pulse 98 Oximetry Height: 5 ft 8 in Weight: 423 lb Body Mass Index (BMI): 64.3 Physical Exam General Appearance: Positive: Alert, Oriented x3 Respiratory: Positive: Non-Labored Abdomin: Positive: Obese Plan Of Care Patient's Next Step: Patient will be discharged home when stable. He will follow up for medical management of his diabetes with his PCP. He is interested in diabetes education and may want to come to [facility] for that. He had questions about bariatric surgery and had started this process in [place] but travel was a barrier for follow up. May be interested in exploring bariatric surgery options in [place]. Referral To: [facility] For Further OutPT Diabetic Training - and evaluation for bariatric surgery Education Prior Diabetic Education: No Handouts Provided: CDC: Taking charge of your diabetes Goals Goals: According to the [place] [employer], the following are your goals for Hemaglobin A1C, Blood Glucose, Hemaglobin A1C * <7.0% for most * Blood Glucose * Fasting Blood Glucose: 80-130 mg/dl * 2 Hour Post Prandial Glucose <180 mg/dl A total of 20 minutes was spent in counseling and education with the patient.
[2016-04-06] MEDS: Morphine INJ* 2 MG/ML 1 ML CARPUJECT IV PRN (13:53)
--- NOTE | 2016-04-06 15:06 | PN ---
Progress Note - Progress Note SOAP: Subjective: DOS: 04/06/15 CC: neck pain HPI: 41 yo man with obesity and diabetes and posterior neck abscess s/p I&D. Fever and chills resolved. No rash or diarrhea. Ongoing neck pain and decreased ROM, slightly better. Objective: [] Vital Signs Temp 36.3 C 04/06/16 11:50 Pulse 84 04/06/16 11:50 Resp 14 04/06/16 13:53 BP 129/62 04/06/16 11:50 Pulse Ox 98 04/06/16 11:50 Intake & Output 04/05/16 04/06/16 04/06/16 18:59 06:59 18:59 Intake Total 545 2840 1346 Output Total 0 0 Balance 545 2840 1346 Weight 423 lb Intake: IV Fluids 10 986 NS 986 NS Flush 10 IVPB 55 CEFAZOLIN 55 Oral 480 2840 360 Output: Urine 0 0 Other: Estimated Void Medium Large # Bowel Movements 0 # Voids 8 1 Gen:Awake, NAD Neck: posterior neck incision with surrounding erythema and edema MSK: decreased ROM of neck HEENT:PERRL, MMM Heart:RRR no murmur Lungs:CTA BL Abd:+BS NTND soft Skin: no rash Laboratory Results - last 24 hr 04/05/16 04/05/16 04/06/16 16:51 21:09 06:15 WBC 8.8 RBC 4.62 Hgb 12.8 L Hct 39 L MCV 84 MCH 28 MCHC 33 RDW 16 H Plt Count 241 MPV 7 L Neut % (Auto) 78.6 Lymph % (Auto) 10.8 L [place] % (Auto) 5.8 Eos % (Auto) 4.1 Baso % (Auto) 0.7 Absolute Neuts (auto) 7.0 Absolute Lymphs (auto) 1.0 Absolute Monos (auto) 0.5 Absolute Eos (auto) 0.4 Absolute Basos (auto) 0.1 Absolute Nucleated RBC 0 Nucleated RBC % 0 Sodium Potassium Chloride Carbon Dioxide Anion Gap BUN Creatinine Est GFR ( Amer) Est GFR (Non-Af Amer) BUN/Creatinine Ratio Glucose POC Glucose (mg/dL) 222 H 212 H Calcium 04/06/16 04/06/16 04/06/16 06:15 08:35 11:57 WBC RBC Hgb Hct MCV MCH MCHC RDW Plt Count MPV Neut % (Auto) Lymph % (Auto) [place] % (Auto) Eos % (Auto) Baso % (Auto) Absolute Neuts (auto) Absolute Lymphs (auto) Absolute Monos (auto) Absolute Eos (auto) Absolute Basos (auto) Absolute Nucleated RBC Nucleated RBC % Sodium 134 Potassium 4.0 Chloride 103 Carbon Dioxide 21 L Anion Gap 10 BUN 14 Creatinine 0.66 L Est GFR ( Amer) 172.8 Est GFR (Non-Af Amer) 134.4 BUN/Creatinine Ratio 21.2 H Glucose 183 H POC Glucose (mg/dL) 164 H [address] 04/04 and 04/06 both reviewed by me, shows no new collection or spread of involvement Assessment: 1. MSSA neck abscess with suppurative mysotitis, slowly improving 2. uncontrolled diabetes 3. obesity Plan: 1. continue ancef 2gm IV Q6hrs day 3, will continue same dosage, expect will need another 1-2 days of IV. Discussed with Nilsa Nolan NP and Ruslan FERGUSON
--- NOTE | 2016-04-06 15:32 | PN ---
Progress Note - Progress Note Note: Surgery Progress: S: day 2 post I&D of posterior neck abscess. Pt states he feels about the same. O: Vital Signs - 8 hr 04/06/16 04/06/16 04/06/16 07:35 09:14 11:14 Temperature 97.6 F Pulse Rate 81 Respiratory 16 18 16 Rate Blood Pressure 127/66 (mmHg) O2 Sat by Pulse 94 Oximetry 04/06/16 04/06/16 11:50 13:53 Temperature 97.4 F Pulse Rate 84 Respiratory 18 14 Rate Blood Pressure 129/62 (mmHg) O2 Sat by Pulse 98 Oximetry PE: post neck: erythema ~ 5-6 cm x 4; thin purulent drainage from wound ( packing had fallen out earlier); moderately tender to palp extending out to ~ 10 -12 cm from wound. Wound probed w/ sterile Qtip after flushing w/ 2% plain lidocaine, to depth of ~4 cm. No apparent undrained collection based on exam, but difficult to tell based on body habitus. Wound repacked w/ 1/2" plain gauze which he tolerated well. lab: Laboratory Tests 04/06/16 04/06/16 04/06/16 06:15 06:15 08:35 WBC 8.8 Glucose 183 H POC Glucose (mg/dL) 164 H 04/06/16 11:57 WBC Glucose POC Glucose (mg/dL) [address] today: IMPRESSION: No significant interval change in inflammatory process primarily involving the RIGHT posterior neck subcutaneous tissue plane with involvement of the dermis and superficial involvement of the subjacent posterior triangle skeletal musculature compared with the April 04, 2016 exam. Skin contour irregularity corresponding with history of surgical incision and drainage. No subcutaneous emphysema evident. No well marginated loculated abscess collection identified. C&S: RUN DATE: 04/06/16 [facility] LAB LIVE PAGE 1 ORDERED: Tissue Cult/GS, MRSA/SA SSTI COMMENTS: TISSUE POST. NECK Procedure Result Reported Site Tissue Gram Stain Final 04/04/16- 1430 ML 4+ Neutrophils 3+ Gram Positive Cocci Tissue Culture Preliminary 04/06/16- 0959 ML Organism 1 STAPHYLOCOCCUS AUREUS Quantity 3+ 1. STAPHYLOCOCCUS AUREUS M.I.C. RX Penicillin R Clindamycin <=0.25 S Erythromycin <=0.25 S Gentamicin <=0.5 S Linezolid 2 S Nitrofurantoin <=16 S Oxacillin 0.5 S * Quinupristin/Dalfopristin <=0.25 S Rifampin <=0.5 S Tetracycline <=1 S Doxycycline - Deduced S * Minocycline - Deduced S Trimethoprim/Sulfamethoxazole <=10 S M.I.C. RX Vancomycin 1 S Imipenem-Deduced S * Ampicillin/Sulbactam-Deduced S Cefazolin-Deduced S A/P: s/p I&D post neck abscess, improving; cont wound care, IV abx
[2016-04-06] MEDS ORDERED: Morphine INJ* 10 MG/ML 1 ML CARPUJECT IV PRN (15:50)
[2016-04-06] MEDS: Insulin GLARGINE(*) 1 UNITS UNIT SUBCUT SCH (21:09)
[2016-04-07] MEDS: ceFAZolin 2 GM PREMIX (*) 2 GM/50 ML BAG IVPB SCH ×4 (05:46→22:53)
[2016-04-07] MEDS: Heparin VIAL(*) 5000 UNITS/ML VIAL (FIVE THOUSAND) SUBCUT SCH ×3 (05:49→22:56)
[2016-04-07 06:40] LABS: Hematocrit 38 % (42-52); Hemoglobin 12.5 g/dl (14.0-18.0); Mean Corpuscular HGB Conc 33 g/dl (31-36); Mean Corpuscular Hemoglobin 27 pg (27-31); Mean Corpuscular Volume 84 fL (80-94); Mean Platelet Volume 7 um3 (7.4-10.4); Red Blood Count 4.56 10^6/ul (4.0-5.4); Red Cell Distribution Width 16 % (10.5-15)
[2016-04-07 06:52] LABS: Add Diff/Slide Review? Slide Review Added; Comments Flag Yes
[2016-04-07 06:59] LABS: Calcium 8.6 mg/dL (8.6-10.3); EGFR African American 182.3 (>60); EGFR Non-African American 141.8 (>60); Potassium 4.2 mmol/L (3.5-5.0)
[2016-04-07 07:24] LABS: Eosinophils % 1 % (0-6); Immature Granulocytes 8 % (0-9); Metamyelocytes % 5 % (0-2); Myelocytes % 1 % (0-1); Neutrophil % 76 % (38-83)
[2016-04-07 07:25] LABS: RBC Morphology Normal (Normal)
[2016-04-07] MEDS: Morphine INJ* 2 MG/ML 1 ML CARPUJECT IV PRN (08:30)
[2016-04-07] MEDS: Insulin LISPRO* 1 UNITS UNIT SUBCUT SCH ×4 (08:31→21:17)
[2016-04-07] MEDS: BuPROPion XL* 300 MG TAB.XL PO SCH (08:31)
[2016-04-07] MEDS: Lisinopril TAB* 10 MG PO SCH (08:31)
[2016-04-07] MEDS: Allopurinol TAB* 100 MG PO SCH ×2 (08:31→21:17)
[2016-04-07] MEDS: Cetirizine* 10 MG TAB PO SCH (08:31)
[2016-04-07] MEDS: Mometasone/Formoter 200/5 MDI INH SCH ×2 (08:43→21:20)
[2016-04-07] MEDS: Nystatin TOP POWDER* 15 GM BTL TOPICAL SCH ×2 (08:44→21:23)
--- NOTE | 2016-04-07 10:03 | PN ---
Progress Note - Progress Note SOAP: Subjective: DOS: 04/07/15 CC: neck pain HPI: 41 yo man with obesity and diabetes and posterior neck abscess s/p I&D. Fever and chills resolved. No rash or diarrhea. Ongoing neck pain and decreased ROM, can move neck more today, but more pain in right posterior scalp. Objective: [] Vital Signs Temp 37.2 C 04/07/16 07:17 Pulse 89 04/07/16 07:17 Resp 16 04/07/16 08:30 BP 131/73 04/07/16 07:17 Pulse Ox 97 04/07/16 07:17 Intake & Output 04/06/16 04/07/16 04/07/16 18:59 06:59 18:59 Intake Total 3715 3569 Output Total 0 1625 Balance 3715 1944 Weight 423 lb Intake: IV Fluids 2704 15 NS 2704 15 IVPB 651 54 CEFAZOLIN 276 54 NS 375 Oral 360 3500 Output: Urine 0 1625 Other: Estimated Void Large Medium # Voids 1 1 Gen:Awake, NAD Neck: posterior neck incision with surrounding erythema and edema; no erythema or edema in right scalp MSK: decreased ROM of neck, no spine tenderness HEENT:PERRL, MMM Heart:RRR no murmur Lungs:CTA BL Abd:+BS NTND soft Skin: no rash Assessment: 1. MSSA neck abscess with suppurative mysotitis, and cellulitis slowly improving 2. uncontrolled diabetes 3. obesity Plan: 1. continue ancef 2gm IV Q6hrs day 4, follow ROM, WBC is improving.
--- NOTE | 2016-04-07 11:56 | PN ---
Progress Note - Progress Note SOAP: Subjective:4 days s/p I&D posterior neck abscess [] Objective:open wound posterior neck right side,surrounding erythema,drainage thin seropurulent,probes in 2.5cm,very tender [] Assessment:no significant interval change [] Plan:continue daily wound care,IV abx,follow with hospitalist service []
[2016-04-07] MEDS: oxyCODONE TAB* 5 MG TAB PO PRN (19:31)
--- NOTE | 2016-04-07 19:35 | PN ---
Subjective Date of Service: 04/07/16 Interval History: Patient seen and examined at bedside. Pt reports that he feels like he has swelling at the top of his shoulders and the base of his neck. Reports pain with ROM of the neck. Denies fever, chills, shortness of breath, chest discomfort, N/V/D. Family History: Unchanged from Admission Social History: Unchanged from Admission Past Medical History: Unchanged from Admission Objective Active Medications: Acetaminophen (Tylenol Tab*) 650 mg PO Q6H PRN Reason: FEVER/PAIN Albuterol (Ventolin Hfa Inhaler*) 2 puff INH Q4H PRN Reason: SOB/WHEEZING Allopurinol (Zyloprim Tab*) 200 mg PO BID HARRY Bupropion HCl (Bupropion Xl*) 300 mg PO DAILY HARRY Cetirizine HCl (Zyrtec*) 10 mg PO DAILY HARRY Dextrose (D50w Syringe 50 Ml*) 12.5 gm IV PUSH .FOR FS < 60 - SS PRN Reason: FS < 60 Docusate Sodium (Colace Cap*) 100 mg PO BID PRN Reason: CONSTIPATION Heparin Sodium (Porcine) (Heparin Vial(*)) 5,000 units SUBCUT Q8HR HARRY Cefazolin Sodium/Dextrose (Kefzol Premix(*)) 2 gm in 50 mls @ 100 mls/hr IVPB Q6H HARRY Insulin Glargine (Lantus(*)) 30 units SUBCUT BEDTIME HARRY Insulin Human Lispro (Humalog*) 0 units SUBCUT ACHS HARRY Lisinopril (Prinivil Tab*) 20 mg PO DAILY HARRY Mometasone Furoate/Formoterol Fumar (Dulera 200/5 Mdi*) 2 puff INH BID HARRY Morphine Sulfate (Morphine Inj (Syringe)*) 2 mg IV Q6H PRN Reason: PAIN - MILD Morphine Sulfate (Morphine Inj (Syringe)*) 5 mg IV .SEE COMMENTS PRN Reason: PAIN Nystatin (Nystatin Top Powder*) 1 applic TOPICAL BID HARRY Oxycodone HCl (Roxycodone Tab*) 10 mg PO Q4H PRN Reason: PAIN Senna (Senokot Tab*) 1 tab PO BEDTIME PRN Reason: CONSTIPATION Vital Signs 04/06/16 04/06/16 04/06/16 21:12 21:20 23:04 Temperature 97.4 F Pulse Rate 84 Respiratory 20 20 18 Rate Blood Pressure 96/39 (mmHg) O2 Sat by Pulse 96 Oximetry 04/06/16 04/06/16 04/07/16 23:20 23:39 03:43 Temperature 98.3 F 98.7 F Pulse Rate 84 84 Respiratory 16 18 16 Rate Blood Pressure 103/51 119/61 (mmHg) O2 Sat by Pulse 98 99 Oximetry 04/07/16 04/07/16 04/07/16 07:17 07:40 08:30 Temperature 99.0 F Pulse Rate 89 Respiratory 18 14 16 Rate Blood Pressure 131/73 (mmHg) O2 Sat by Pulse 97 Oximetry 04/07/16 04/07/16 04/07/16 09:30 12:52 16:27 Temperature 97.5 F 98.4 F Pulse Rate 87 87 Respiratory 16 18 20 Rate Blood Pressure 124/66 124/62 (mmHg) O2 Sat by Pulse 98 97 Oximetry Oxygen Devices in Use Now: None Appearance: NAD, sitting up in a chair. Eyes: No Scleral Icterus, PERRLA Ears/Nose/Mouth/Throat: NL Teeth, Lips, Gums, Mucous Membranes Moist Neck: NL Appearance and Movements; NL JVP, Trachea Midline, - - Decreased ROM d/ t pain, posterior neck and upper back very tender to the touch. Posterior neck incision with surrounding erythema and edema Respiratory: Symmetrical Chest Expansion and Respiratory Effort, Clear to Auscultation Cardiovascular: NL Sounds; No Murmurs; No JVD, RRR Abdominal: NL Sounds; No Tenderness; No Distention - Bowel sounds present Extremities: No Edema Skin: - - Dressing to posterior neck clean, dry and intact. Neurological: Alert and Oriented x 3, NL Muscle Strength and Tone Lines/Tubes/Other Access: Clean, Dry and Intact Peripheral IV - site benign Nutrition: Taking PO's Result Diagrams: 04/07/16 06:17 04/07/16 06:17 Microbiology and Other Data: Microbiology 04/04/16 12:30 Skin and Soft Tissue MRSA/MSSA (PCR - Final Neck Mrsa Negative S.aureus Positive Gram Stain - Final 04/04/16 12:30 Wound Gram Stain - Final Tissue - Not Otherwise Specified Skin and Soft Tissue MRSA/MSSA (PCR - Final Mrsa Negative S.aureus Positive Assess/Plan/Problems-Billing Assessment: Mr. Urbina is a 41 yo male with a PMH of morbid obesity, HTN, asthma, sleep apnea, and depression who presented to the ED on 04/03 with c/o neck pain found to have an abscess/cellulitis. - Patient Problems (1) cellulitis/abscess Comment: - Posterior neck abscess with cellulitis and infective myositis s/p I& D and debridement. - wound/tissue cx growing staph. - No further fevers. Leukocytosis resolved. - Neck soft CT w/ showing no loculated area but is showing extension to the superfical aspect of the posterior triangle skeletal mucsular compartment with mild extension across the midline. - Appreciate surgery consult - I&D on 04/04 - ID consult 04/05 - repeat CT neck 04/06 with no significant change - Continue Ancef - blood cx no growth Day 3 (2) Diabetes Code(s): E11.9 - TYPE 2 DIABETES MELLITUS WITHOUT COMPLICATIONS SNOMED Code(s) : 65048548 Comment: - Uncontrolled - Glucose 200-250's - IDDM type 2- non-compliant with home medication due to cost. - FSBG ACHS with lispro SS and Lantus 30 units bedtime. - Hold home oral medications. - HgA1C 8.8 down from 10.8 last year - Social work consult for help with medications - Referral to [facility] (3) Morbid obesity with BMI of 60.0-69.9, adult Code(s): E66.01 - MORBID (SEVERE) OBESITY DUE TO EXCESS CALORIES; Z68.44 - BODY MASS INDEX (BMI) 60.0-69.9, ADULT SNOMED Code(s): 908438790 Comment: - referral to [facility] (4) Asthma Code(s): J45.909 - UNSPECIFIED ASTHMA, UNCOMPLICATED SNOMED Code(s): 073124920 Comment: - Controlled. - Continue Dulera BID and albuterol prn (5) HTN (hypertension) Code(s): I10 - ESSENTIAL (PRIMARY) HYPERTENSION SNOMED Code(s): 24222797 Comment: - Controlled. SBP 90-130's - Autosub Quinapril for Lisinopril (6) Depression Code(s): F32.9 - MAJOR DEPRESSIVE DISORDER, SINGLE EPISODE, UNSPECIFIED SNOMED Code(s): 92920713 Comment: - continue wellbutrin (7) Sleep apnea Code(s): G47.30 - SLEEP APNEA, UNSPECIFIED SNOMED Code(s): 56091176 Comment: - Continue home cpap (8) DVT prophylaxis Code(s): RDB0067 - SNOMED Code(s): 099921757 Comment: - HSQ (9) Full code status Code(s): Z78.9 - OTHER SPECIFIED HEALTH STATUS SNOMED Code(s): 501238752 Status and Disposition: Inpatient with cellulitis/abscess requiring IV abx. ID consult and surgery following. Pt will go home at discharge. Possible VNS referral.
[2016-04-07] MEDS: Insulin GLARGINE(*) 1 UNITS UNIT SUBCUT SCH (21:18)
[2016-04-08] MEDS: Morphine INJ* 2 MG/ML 1 ML CARPUJECT IV PRN (04:21)
[2016-04-08] MEDS: oxyCODONE TAB* 5 MG TAB PO PRN (04:32)
[2016-04-08] MEDS: ceFAZolin 2 GM PREMIX (*) 2 GM/50 ML BAG IVPB SCH ×4 (05:24→22:52)
[2016-04-08] MEDS: Heparin VIAL(*) 5000 UNITS/ML VIAL (FIVE THOUSAND) SUBCUT SCH ×3 (05:25→21:52)
[2016-04-08 07:28] LABS: Hematocrit 39 % (42-52); Hemoglobin 12.8 g/dl (14.0-18.0); Mean Corpuscular HGB Conc 33 g/dl (31-36); Mean Corpuscular Hemoglobin 27 pg (27-31); Mean Corpuscular Volume 84 fL (80-94); Mean Platelet Volume 7 um3 (7.4-10.4); Red Blood Count 4.68 10^6/ul (4.0-5.4); Red Cell Distribution Width 16 % (10.5-15); White Blood Count 8.1 10^3/ul (3.5-10.8)
[2016-04-08] MEDS: Insulin LISPRO* 1 UNITS UNIT SUBCUT SCH ×4 (08:07→21:09)
[2016-04-08] MEDS: Mometasone/Formoter 200/5 MDI INH SCH ×2 (08:09→20:20)
[2016-04-08] MEDS: Lisinopril TAB* 10 MG PO SCH (08:09)
[2016-04-08] MEDS: Cetirizine* 10 MG TAB PO SCH (08:09)
[2016-04-08] MEDS: BuPROPion XL* 300 MG TAB.XL PO SCH (08:09)
[2016-04-08] MEDS: Allopurinol TAB* 100 MG PO SCH ×2 (08:09→20:03)
[2016-04-08] MEDS: Nystatin TOP POWDER* 15 GM BTL TOPICAL SCH ×2 (08:09→20:07)
--- NOTE | 2016-04-08 11:00 | PN ---
Progress Note - Progress Note SOAP: Subjective: neck extruder tender,premedication before repacking helps [] Objective:open wound posterior neck with granulation,probes in 2.5cm, surrounding erythema decreasing,no undrained collection,no purulent exudate [] Assessment:slow improvement [] Plan:continue daily repacking by nursing ;abx per ID;recall surgery prn []
--- NOTE | 2016-04-08 18:02 | PN ---
Subjective Date of Service: 04/08/16 Interval History: Patient seen and examined at bedside. Pt states that his pain is improving, but he continues to have decreased ROM in his neck due to pain. Denies fever, chills , shortness of breath, chest discomfort, N/V/D. Family History: Unchanged from Admission Social History: Unchanged from Admission Past Medical History: Unchanged from Admission Objective Active Medications: Acetaminophen (Tylenol Tab*) 650 mg PO Q6H PRN Reason: FEVER/PAIN Albuterol (Ventolin Hfa Inhaler*) 2 puff INH Q4H PRN Reason: SOB/WHEEZING Allopurinol (Zyloprim Tab*) 200 mg PO BID HARRY Bupropion HCl (Bupropion Xl*) 300 mg PO DAILY HARRY Cetirizine HCl (Zyrtec*) 10 mg PO DAILY HARRY Dextrose (D50w Syringe 50 Ml*) 12.5 gm IV PUSH .FOR FS < 60 - SS PRN Reason: FS < 60 Docusate Sodium (Colace Cap*) 100 mg PO BID PRN Reason: CONSTIPATION Heparin Sodium (Porcine) (Heparin Vial(*)) 5,000 units SUBCUT Q8HR HARRY Cefazolin Sodium/Dextrose (Kefzol Premix(*)) 2 gm in 50 mls @ 100 mls/hr IVPB Q6H HARRY Insulin Glargine (Lantus(*)) 30 units SUBCUT BEDTIME HARRY Insulin Human Lispro (Humalog*) 0 units SUBCUT ACHS HARRY Lisinopril (Prinivil Tab*) 20 mg PO DAILY HARRY Mometasone Furoate/Formoterol Fumar (Dulera 200/5 Mdi*) 2 puff INH BID HARRY Morphine Sulfate (Morphine Inj (Syringe)*) 2 mg IV Q6H PRN Reason: PAIN - MILD Morphine Sulfate (Morphine Inj (Syringe)*) 5 mg IV .SEE COMMENTS PRN Reason: PAIN Nystatin (Nystatin Top Powder*) 1 applic TOPICAL BID HARRY Oxycodone HCl (Roxycodone Tab*) 10 mg PO Q4H PRN Reason: PAIN Senna (Senokot Tab*) 1 tab PO BEDTIME PRN Reason: CONSTIPATION Vital Signs 04/07/16 04/07/16 04/07/16 19:31 19:38 20:29 Temperature 97.9 F Pulse Rate 85 Respiratory 18 18 16 Rate Blood Pressure 101/46 (mmHg) O2 Sat by Pulse 98 Oximetry 04/07/16 04/08/16 04/08/16 21:31 00:12 04:01 Temperature 98.0 F 98.0 F Pulse Rate 84 78 Respiratory 18 16 16 Rate Blood Pressure 124/57 118/85 (mmHg) O2 Sat by Pulse 99 99 Oximetry 04/08/16 04/08/16 04/08/16 06:32 07:20 08:00 Temperature 97.9 F Pulse Rate 77 Respiratory 18 17 17 Rate Blood Pressure 125/67 (mmHg) O2 Sat by Pulse 100 Oximetry 04/08/16 04/08/16 04/08/16 10:10 11:05 11:10 Temperature 97.8 F Pulse Rate 84 Respiratory 18 17 18 Rate Blood Pressure 117/55 (mmHg) O2 Sat by Pulse 96 Oximetry 04/08/16 04/08/16 12:16 12:36 Temperature 96.7 F 96.7 F Pulse Rate 87 82 Respiratory 18 18 Rate Blood Pressure 124/67 124/67 (mmHg) O2 Sat by Pulse 96 97 Oximetry Oxygen Devices in Use Now: None Appearance: NAD, sitting up in a chair. Eyes: No Scleral Icterus, PERRLA Ears/Nose/Mouth/Throat: NL Teeth, Lips, Gums, Mucous Membranes Moist Neck: - - Posterior neck with slight eythema, swelling and tenderness to touch, limited ROM due to pain Respiratory: Symmetrical Chest Expansion and Respiratory Effort, Clear to Auscultation Cardiovascular: NL Sounds; No Murmurs; No JVD, RRR Abdominal: NL Sounds; No Tenderness; No Distention - Bowel sounds present Extremities: No Edema Skin: - - Dressing to posterior neck with small amount of old drainage, intact. Neurological: Alert and Oriented x 3, NL Muscle Strength and Tone Lines/Tubes/Other Access: Clean, Dry and Intact Peripheral IV - site benign Nutrition: Taking PO's Result Diagrams: 04/08/16 06:59 04/07/16 06:17 Microbiology and Other Data: Microbiology 04/04/16 12:30 Skin and Soft Tissue MRSA/MSSA (PCR - Final Neck Mrsa Negative S.aureus Positive Gram Stain - Final 04/04/16 12:30 Wound Gram Stain - Final Tissue - Not Otherwise Specified Skin and Soft Tissue MRSA/MSSA (PCR - Final Mrsa Negative S.aureus Positive Assess/Plan/Problems-Billing Assessment: Mr. Urbina is a 41 yo male with a PMH of morbid obesity, HTN, asthma, sleep apnea, and depression who presented to the ED on 04/03 with c/o neck pain found to have an abscess/cellulitis. - Patient Problems (1) cellulitis/abscess Comment: - Posterior neck abscess with cellulitis and infective myositis s/p I& D and debridement. - wound/tissue cx growing staph. - No further fevers. Leukocytosis resolved. - Neck soft CT w/ showing no loculated area but is showing extension to the superfical aspect of the posterior triangle skeletal mucsular compartment with mild extension across the midline. - Appreciate surgery consult - I&D on 04/04 - ID consult 04/05 - repeat CT neck 04/06 with no significant change - Continue Ancef - blood cx no growth Day 4 - Will check CRP in AM (2) Diabetes Code(s): E11.9 - TYPE 2 DIABETES MELLITUS WITHOUT COMPLICATIONS SNOMED Code(s) : 02371285 Comment: - Uncontrolled - Glucose 230-300's - IDDM type 2- non-compliant with home medication due to cost. - FSBG ACHS with lispro SS and increase Lantus to 45 units bedtime. - Hold home oral medications. - HgA1C 8.8 down from 10.8 last year - Social work consult for help with medications - Referral to [facility] (3) Morbid obesity with BMI of 60.0-69.9, adult Code(s): E66.01 - MORBID (SEVERE) OBESITY DUE TO EXCESS CALORIES; Z68.44 - BODY MASS INDEX (BMI) 60.0-69.9, ADULT SNOMED Code(s): 421415974 Comment: - referral to [facility] (4) Asthma Code(s): J45.909 - UNSPECIFIED ASTHMA, UNCOMPLICATED SNOMED Code(s): 054002522 Comment: - Controlled. - Continue Dulera BID and albuterol prn (5) HTN (hypertension) Code(s): I10 - ESSENTIAL (PRIMARY) HYPERTENSION SNOMED Code(s): 91889151 Comment: - Controlled. SBP 110-120's - Autosub Lisinopril for Quinapril (6) Depression Code(s): F32.9 - MAJOR DEPRESSIVE DISORDER, SINGLE EPISODE, UNSPECIFIED SNOMED Code(s): 28124508 Comment: - continue wellbutrin (7) Sleep apnea Code(s): G47.30 - SLEEP APNEA, UNSPECIFIED SNOMED Code(s): 10956106 Comment: - Continue home cpap (8) DVT prophylaxis Code(s): UYS3397 - SNOMED Code(s): 667655306 Comment: - HSQ (9) Full code status Code(s): Z78.9 - OTHER SPECIFIED HEALTH STATUS SNOMED Code(s): 267683363 Status and Disposition: Inpatient with cellulitis/abscess requiring IV abx. ID consult and surgery following. Pt will go home at discharge. Possible VNS referral. Plan for possible discharge to home in AM.
[2016-04-08] MEDS ORDERED: Insulin GLARGINE(*) 1 UNITS UNIT SUBCUT SCH (21:00)
[2016-04-09] MEDS: ceFAZolin 2 GM PREMIX (*) 2 GM/50 ML BAG IVPB SCH ×2 (05:04→11:55)
[2016-04-09] MEDS: oxyCODONE TAB* 5 MG TAB PO PRN ×2 (05:09→09:15)
[2016-04-09] MEDS: Heparin VIAL(*) 5000 UNITS/ML VIAL (FIVE THOUSAND) SUBCUT SCH (05:22)
[2016-04-09 06:21] LABS: Hematocrit 39 % (42-52); Hemoglobin 12.9 g/dl (14.0-18.0); Mean Corpuscular HGB Conc 33 g/dl (31-36); Mean Corpuscular Hemoglobin 27 pg (27-31); Mean Corpuscular Volume 83 fL (80-94); Mean Platelet Volume 7 um3 (7.4-10.4); Red Blood Count 4.73 10^6/ul (4.0-5.4); Red Cell Distribution Width 16 % (10.5-15); White Blood Count 8.7 10^3/ul (3.5-10.8)
[2016-04-09 07:32] VITALS: BP 132/70
[2016-04-09] MEDS: Lisinopril TAB* 10 MG PO SCH (08:18)
[2016-04-09] MEDS: Cetirizine* 10 MG TAB PO SCH (08:19)
[2016-04-09] MEDS: BuPROPion XL* 300 MG TAB.XL PO SCH (08:19)
[2016-04-09] MEDS: Allopurinol TAB* 100 MG PO SCH (08:19)
[2016-04-09] MEDS: Insulin LISPRO* 1 UNITS UNIT SUBCUT SCH ×2 (08:20→12:01)
[2016-04-09] MEDS: Nystatin TOP POWDER* 15 GM BTL TOPICAL SCH (08:23)
[2016-04-09] MEDS: Mometasone/Formoter 200/5 MDI INH SCH (08:55)
--- NOTE | 2016-04-09 11:57 | PN ---
Subjective Date of Service: 04/09/16 Interval History: Patient seen and examined at bedside. Pt states that his neck pain and ROM continue to slowly improve. Denies fever, chills, shortness of breath, chest discomfort, N/V/D. Family History: Unchanged from Admission Social History: Unchanged from Admission Past Medical History: Unchanged from Admission Objective Active Medications: Acetaminophen (Tylenol Tab*) 650 mg PO Q6H PRN Reason: FEVER/PAIN Albuterol (Ventolin Hfa Inhaler*) 2 puff INH Q4H PRN Reason: SOB/WHEEZING Allopurinol (Zyloprim Tab*) 200 mg PO BID HARRY Bupropion HCl (Bupropion Xl*) 300 mg PO DAILY HARRY Cetirizine HCl (Zyrtec*) 10 mg PO DAILY HARRY Dextrose (D50w Syringe 50 Ml*) 12.5 gm IV PUSH .FOR FS < 60 - SS PRN Reason: FS < 60 Docusate Sodium (Colace Cap*) 100 mg PO BID PRN Reason: CONSTIPATION Heparin Sodium (Porcine) (Heparin Vial(*)) 5,000 units SUBCUT Q8HR HARRY Cefazolin Sodium/Dextrose (Kefzol Premix(*)) 2 gm in 50 mls @ 100 mls/hr IVPB Q6H HARRY Insulin Glargine (Lantus(*)) 45 units SUBCUT BEDTIME HARRY Insulin Human Lispro (Humalog*) 0 units SUBCUT ACHS HARRY Reason: Protocol Lisinopril (Prinivil Tab*) 20 mg PO DAILY HARRY Mometasone Furoate/Formoterol Fumar (Dulera 200/5 Mdi*) 2 puff INH BID HARRY Morphine Sulfate (Morphine Inj (Syringe)*) 2 mg IV Q6H PRN Reason: PAIN - MILD Morphine Sulfate (Morphine Inj (Syringe)*) 5 mg IV .SEE COMMENTS PRN Reason: PAIN Nystatin (Nystatin Top Powder*) 1 applic TOPICAL BID HARRY Oxycodone HCl (Roxycodone Tab*) 10 mg PO Q4H PRN Reason: PAIN Senna (Senokot Tab*) 1 tab PO BEDTIME PRN Reason: CONSTIPATION Vital Signs 04/08/16 04/08/16 04/08/16 12:16 12:36 18:51 Temperature 96.7 F 96.7 F 98.1 F Pulse Rate 87 82 86 Respiratory 18 18 16 Rate Blood Pressure 124/67 124/67 116/54 (mmHg) O2 Sat by Pulse 96 97 97 Oximetry 04/08/16 04/08/16 04/09/16 20:00 23:56 05:09 Temperature 98.1 F Pulse Rate 76 Respiratory 17 20 17 Rate Blood Pressure 102/44 (mmHg) O2 Sat by Pulse 95 Oximetry 04/09/16 04/09/16 04/09/16 07:09 07:26 08:00 Temperature 98.0 F Pulse Rate 77 Respiratory 18 16 18 Rate Blood Pressure 132/70 (mmHg) O2 Sat by Pulse 97 Oximetry Oxygen Devices in Use Now: None Appearance: NAD, sitting up in a chair. Eyes: No Scleral Icterus, PERRLA Ears/Nose/Mouth/Throat: NL Teeth, Lips, Gums, Mucous Membranes Moist Neck: - - Posterior neck with slight erythema, and swelling, tender to the touch Respiratory: Symmetrical Chest Expansion and Respiratory Effort, Clear to Auscultation Cardiovascular: NL Sounds; No Murmurs; No JVD, RRR Abdominal: NL Sounds; No Tenderness; No Distention Skin: - - Dressing to posterior neck clean, dry and intact Neurological: Alert and Oriented x 3, NL Muscle Strength and Tone Lines/Tubes/Other Access: Clean, Dry and Intact Peripheral IV - site benign Nutrition: Taking PO's Result Diagrams: 04/09/16 05:25 04/07/16 06:17 Microbiology and Other Data: Microbiology 04/04/16 12:30 Skin and Soft Tissue MRSA/MSSA (PCR - Final Neck Mrsa Negative S.aureus Positive Gram Stain - Final 04/04/16 12:30 Wound Gram Stain - Final Tissue - Not Otherwise Specified Skin and Soft Tissue MRSA/MSSA (PCR - Final Mrsa Negative S.aureus Positive Assess/Plan/Problems-Billing Assessment: Mr. Urbina is a 41 yo male with a PMH of morbid obesity, HTN, asthma, sleep apnea, and depression who presented to the ED on 04/03 with c/o neck pain found to have an abscess/cellulitis. - Patient Problems (1) cellulitis/abscess Comment: - Posterior neck abscess with cellulitis and infective myositis s/p I& D and debridement. - wound/tissue cx growing staph. - No further fevers. Leukocytosis resolved. - Neck soft CT w/ showing no loculated area but is showing extension to the superfical aspect of the posterior triangle skeletal mucsular compartment with mild extension across the midline. - Appreciate surgery consult - I&D on 04/04 - ID consult 04/05 - repeat CT neck 04/06 with no significant change - blood cx no growth Day 4 - CRP improving - Will switch to Clindamycin for home (2) Diabetes Code(s): E11.9 - TYPE 2 DIABETES MELLITUS WITHOUT COMPLICATIONS SNOMED Code(s) : 24902863 Comment: - Uncontrolled - Glucose 200-260's - IDDM type 2- non-compliant with home medication due to cost. - FSBG ACHS with lispro SS and Lantus to 45 units bedtime. - Hold home oral medications. - HgA1C 8.8 down from 10.8 last year - Social work consult for help with medications - Referral to [facility] (3) Morbid obesity with BMI of 60.0-69.9, adult Code(s): E66.01 - MORBID (SEVERE) OBESITY DUE TO EXCESS CALORIES; Z68.44 - BODY MASS INDEX (BMI) 60.0-69.9, ADULT SNOMED Code(s): 115452813 Comment: - referral to [facility] (4) Asthma Code(s): J45.909 - UNSPECIFIED ASTHMA, UNCOMPLICATED SNOMED Code(s): 718359420 Comment: - Controlled. - Continue Dulera BID and albuterol prn (5) HTN (hypertension) Code(s): I10 - ESSENTIAL (PRIMARY) HYPERTENSION SNOMED Code(s): 21446921 Comment: - Controlled. SBP 100-130's - Autosub Lisinopril for Quinapril (6) Depression Code(s): F32.9 - MAJOR DEPRESSIVE DISORDER, SINGLE EPISODE, UNSPECIFIED SNOMED Code(s): 46117443 Comment: - continue wellbutrin (7) Sleep apnea Code(s): G47.30 - SLEEP APNEA, UNSPECIFIED SNOMED Code(s): 69798195 Comment: - Continue home cpap (8) DVT prophylaxis Code(s): GKN3424 - SNOMED Code(s): 905586589 Comment: - HSQ (9) Full code status Code(s): Z78.9 - OTHER SPECIFIED HEALTH STATUS SNOMED Code(s): 260272471 Status and Disposition: Inpatient with cellulitis/abscess requiring IV abx. ID consult and surgery following. Stable for discharge to home.
--- NOTE | 2016-04-10 03:46 | DS ---
DISCHARGE SUMMARY: DATE OF ADMISSION: 04/04/16 DATE OF DISCHARGE: 04/09/16 ATTENDING PHYSICIAN: Jr Rai MD *(dictated by Belle Leo NP) PRIMARY CARE PROVIDER: Lise Davis MD PRIMARY DIAGNOSES: 1. MSSA neck abscess with suppurative myositis. 2. Cellulitis. 3. Uncontrolled diabetes. 4. Obesity. SECONDARY DIAGNOSES: 1. Hypertension. 2. Asthma. 3. Sleep apnea. 4. Depression. CONSULTATIONS WHILE IN THE HOSPITAL: 1. Dr. Aly Curiel with General Surgery. 2. Dr. Garrett Jackman with Infectious Disease. 3. Mayuri Ordaz NP, with [facility]. PROCEDURES WHILE IN THE HOSPITAL: Status post incision and drainage of posterior neck abscess by Dr. Curiel on 04/04/16. STUDIES WHILE IN THE HOSPITAL: 1. Neck CT on 04/03/16. Radiologist's impression: The consolidation of findings is consistent with right posterior neck cellulitis with extension to the superficial aspect of the posterior triangle skeletal muscular compartment with mild extension across the midline as described. No loculated abscess evident; however, the suboptimal contrast enhancement mildly limits assessment. If clinically indicated, consider repeat contrast enhanced CT. 2. Neck CT on 04/06/16. Radiologist impression: No significant interval change in inflammatory process primarily involving the right posterior neck subcutaneous tissue plane with involvement of the dermis and superficial involvement of the subjacent posterior triangle skeletal musculature compared with the 04/04/16 exam. Skin contour irregularity corresponding with the history of surgical incision and drainage. No subcutaneous emphysema noted. No well-marginated loculated abscess collection identified. DISCHARGE MEDICATIONS: New home medications: 1. Acetaminophen 650 mg oral every 6 hours as needed for fever or pain. 2. Clindamycin 300 mg oral 3 times daily. 3. Percocet 1 tablet every 4 hours as needed for pain. Continued home medications: 1. Metformin 1000 mg oral twice daily. 2. Claritin 1 tablet oral daily. 3. Allopurinol 2 tablets oral twice daily. 4. Quinapril 20 mg oral daily. 5. Advair Diskus 500/50 one puff inhalation twice daily. 6. Trulicity injection weekly. 7. Albuterol HFA 2 puffs inhalation every 4 hours as needed for shortness of breath or wheeze. 8. Lantus 30 units injection at bedtime. 9. Invokana 1 tablet oral daily. 10. Glimepiride 2 mg oral twice daily. 11. Wellbutrin 300 mg oral daily. HISTORY OF PRESENT ILLNESS/HOSPITAL COURSE: Mr. Urbina is a 41-year-old male who reports approximately 2 weeks ago, having what he felt was a pimple on the back of his neck that he scratched or may have tried to pop and it became worse. The patient reports approximately a week ago he noticed that he had decreased range of motion and was having pain in his neck. The patient was seen by his primary care provider who started him on Bactrim. The patient reports not having improvement with his symptoms after starting the Bactrim. The patient then asked his mother to look at the area and the patient's mother tried to squeeze it and the area became hard and more painful. The patient then developed fevers but no chills. The patient presented to the emergency room for further evaluation of his symptoms. While in the emergency room, the patient was felt to have a furuncle on the back of his neck. He had a CT of his neck showing soft tissue swelling and no obvious loculated fluid collections. It was felt that this is most likely a staph and the patient was started on vancomycin and Zosyn. There was also a surgical consult requested for possible incision and drainage. The patient was seen in consultation by Dr. Curiel, who performed a bedside incision and drainage at the patient's furuncle. The patient was also seen in consultation by Dr. Jackman. During the patient's stay, after cultures were given time to grow, the patient was found to have an MSSA neck abscess with suppurative myositis and cellulitis that was slowly improving on Ancef. The patient also had uncontrolled diabetes and was seen in consultation by Mayuri Ordaz from [facility]. During the patient's stay, he has been afebrile after his initial presentation. The patient's leukocytosis is resolved. The patient's CRP has decreased from 201 at admission to 28.08. The patient's glucoses remained elevated during his stay, mostly in the mid 200s. The patient was receiving daily packing changes to his neck. During the patient's stay, his range of motion of his neck has increased and he has had some tenderness to the soft tissue surrounding the area. The patient's range of motion has improved and the pain has decreased. The patient has continued to have posterior neck erythema and edema surrounding his posterior neck incision. Mr. Urbina is stable for discharge to home today. Vital signs are as follows: Temperature 98.0, heart rate 77, respiratory rate 16, O2 sat 97% on room air, blood pressure 132/70. DISCHARGE PLAN: Mr. Urbina will be discharged to home. Activity as tolerated. He will remain on regular consistent carbohydrate diet. As far as the patient's MSSA neck abscess, he will be continued on clindamycin 300 mg 3 times daily for 10 days. The patient has also been provided with prescription for Percocet 5/325 one tablet every 4 hours as needed for pain. Please note that I did check the patient's I-STOP reference number [id number]. The patient as far as wound care for his posterior neck incision, has been instructed to change the packing every other day and place dry dressings over the wound. The patient has been encouraged to change the outer dressing at least daily and when saturated. The patient states that his family has experience with packing wounds and is able to pack his wounds. The patient has an appointment with PHYLLIS Dillard, at [facility] on 04/16/16 at 9:30 a.m. for a wound check. The patient should follow up with Dr. Jackman in the next 2 to 3 weeks. The patient has an appointment with his primary care provider, Dr. Davis, on 04/16/16 at 10:15 a.m. The patient should also follow with [facility] for further diabetes education and bariatric surgery evaluation. At this time for the patient's diabetes, he has been resumed on his oral medications and his home Lantus, although he may need his Lantus further adjusted if he continues to have elevated glucose as well he acutely has an infection. The patient has been asked to return to the emergency room for chest pain or shortness of breath. This is a summarized report complex medical history and hospital stay. For further details, please see the entire medical record. TIME SPENT: Time for this discharge was 50 minutes, and 25 minutes was spent face- to-face with the patient discussing discharge plans and instructions. CONDITION ON DISCHARGE: Stable. Reviewed by NILAM BELTRÁN 04/16/16 3039 CC: [facility]; Dr. Jackman; [facility]; Dr. Davis* [id number]/[facility] #: [id number] [facility]
== END 2016-04-09 13:40 | disposition home or self-care (01) | DRG 603 ==
LOC: ED 22:02 → SSU 04-04 01:54 → MED 04-08 12:15
PROVIDERS: ADMIT Internal Medicine; ATTEND Internal Medicine
PROC: 0H94XZZ Drainage of Neck Skin, External Approach (ICD-10-PCS; principal; 2016-04-04)
PROC: 5A09357 Assistance with Respiratory Ventilation, Less than 24 Consecutive Hours, Continuous Positive Airway Pressure (ICD-10-PCS; 2016-04-04)
DX: L02.11 Cutaneous abscess of neck (principal); M60.08 Infective myositis, other site; E11.65 Type 2 diabetes mellitus with hyperglycemia; E87.1 Hypo-osmolality and hyponatremia; I10 Essential (primary) hypertension; L03.90 Cellulitis, unspecified; Z68.44 Body mass index [BMI] 60.0-69.9, adult; B95.61 Methicillin susceptible Staphylococcus aureus infection as the cause of diseases classified elsewhere; Z88.8 Allergy status to other drugs, medicaments and biological substances; J45.909 Unspecified asthma, uncomplicated; Z82.49 Family history of ischemic heart disease and other diseases of the circulatory system; Z83.3 Family history of diabetes mellitus; Z80.9 Family history of malignant neoplasm, unspecified; G47.30 Sleep apnea, unspecified; F32.9 Major depressive disorder, single episode, unspecified; M10.9 Gout, unspecified; E66.01 Morbid (severe) obesity due to excess calories; L02.12 Furuncle of neck; Z79.4 Long term (current) use of insulin
CPT/HCPCS: 36415; 70491; 80048; 80053; 80202; 83036; 83605; 85025; 86140; 87040; 87070; 87077; 87186; 87205; 87640; 87641; 94640; 94660; 94760; 99221; A9270-GY; J0690; J1644; J2270; J2405; J2543; J3370; Q9967

== ENCOUNTER 2016-06-24 14:16 | Emergency (ER) | payer MEDICARE ==
[2016-06-24 14:35] VITALS: BP 126/75
--- NOTE | 2016-06-24 14:50 | UC ---
Lower Extremity/Ankle HPI - HPI Summary HPI Summary: Pain in left foot, intense after standing at work last night; finished at 1 am and pain continues. Hx of gout. Taking allopurinol. No hx of trauma. VSS, afebrile. - History of Current Complaint Chief Complaint: UCLowerExtremity Stated Complaint: FOOT/LEG PAIN Time Seen by Provider: 06/24/16 14:40 Hx Obtained From: Patient Onset/Duration: Sudden Onset, Lasting Hours, Still Present Severity Initially: Moderate Severity Currently: Moderate Aggravating Factor(s): Standing Alleviating Factor(s): Rest Able to Bear Weight: Yes - Risk Factors Gout Risk Factors: Diabetes, Hypertension, Hyperlipidemia, Obesity DVT Risk Factors: Negative Septic Arthritis Risk Factor: Negative - Allergies/Home Medications Allergies/Adverse Reactions: Allergies Allergy/AdvReac Type Severity Reaction Status Date / Time Ibuprofen Allergy Severe "MY Verified 06/24/16 14:27 KIDNEYS SHUT DOWN" [place] Oil Allergy Hives/Diff. Verified 06/24/16 14:27 Breathing/I tching Dextromethorphan AdvReac Intermediate Nausea Verified 06/24/16 14:27 [From Mucinex DM] Guaifenesin [From Mucinex DM] AdvReac Intermediate Nausea Verified 06/24/16 14: 27 Yellow Dye [From Mucinex DM] AdvReac Intermediate Nausea Verified 06/24/16 14:27 PMH/Surg Hx/FS Hx/Imm Hx Endocrine History Of: Reports: Diabetes Denies: Thyroid Disease Cardiovascular History Of: Reports: Hypertension Denies: Cardiac Disorders Respiratory History Of: Reports: Asthma Denies: COPD GI/ History Of: Denies: Ulcer, Renal Disease Psychological History Of: Reports: Depression - Surgical History Surgical History: Yes Surgery Procedure, Year, and Place: RIGHT WRIST FRACTURE, SCREWS PLACED. - Family History Known Family History: Positive: Hypertension, Diabetes, Other - cancer - Social History Alcohol Use: None Substance Use Type: None Smoking Status (MU): Never Smoked Tobacco - Immunization History Most Recent Influenza Vaccination: Fall 2015 Most Recent Tetanus Shot: unknown Most Recent Pneumonia Vaccination: never Review of Systems Constitutional: Negative Skin: Negative Eyes: Negative ENT: Negative Respiratory: Negative Cardiovascular: Negative Gastrointestinal: Negative Genitourinary: Negative Motor: Negative Neurovascular: Negative Musculoskeletal: Other: - pain left foot over base of toes Neurological: Negative Psychological: Negative All Other Systems Reviewed And Are Negative: Yes Physical Exam Triage Information Reviewed: Yes Appearance: Well-Appearing, Obese Vital Signs: Initial Vital Signs Temp 97.7 F 06/24/16 14:30 Pulse 85 06/24/16 14:30 Resp 16 06/24/16 14:30 BP 126/75 06/24/16 14:30 Pulse Ox 97 06/24/16 14:30 Eye Exam: Normal ENT Exam: Normal Dental Exam: Normal Neck exam: Normal Neck: Positive: 1 Respiratory Exam: Normal Respiratory: Positive: Lungs clear Cardiovascular Exam: Normal Cardiovascular: Positive: RRR, No Murmur Abdominal Exam: Normal, Other - obese Bowel Sounds: Positive: Present Musculoskeletal Exam: Other - LEFT FOOT: TENDER, BASE OF TOES 1-5. NO REDNESS; NO CELLULITIS; NO EVIDENCE OF FX. Neurological Exam: Normal Psychological Exam: Normal Skin Exam: Normal - Additional Comments Negative Homans. No evidence of calf thrombophlebitis. Lower Extremity Course/Dx - Course Course Of Treatment: Medications have been included in the original chart and reviewed. Patient is Urgent/Emergent. BP slightly elevated, at 126. Hx of HTN. On medication. I explained that this is probably overuse. Rest for next three days. Elevate, warm moist heat. Ice to area for pain after standing. - Differential Dx/Diagnosis Differential Diagnosis/HQI/PQRI: Arthritis, Bursitis, Cellulitis, Gout, Strain, Tendonitis Provider Diagnoses: Overuse discomfort and arthritis left foot, metatarsal- phalangeal joints 1-5 Discharge - Discharge Plan Condition: Stable Disposition: HOME Patient Education Materials: Osteoarthritis (ED), Gout (ED) Forms: *Work Release Referrals: Lise Davis MD [Primary Care Provider] - Additional Instructions: WE DISCUSSED: You may have gout or more probably this may be an injury to your toes from standing with osteoarthritis. Re check if you see any redness. Rest, warm moist heat, elevate your foot. This should be improving by Tuesday. I have given you a work note. There was no broken bone on x ray. Re check at any time for increased disability, pain, swelling, or redness.
--- NOTE | 2016-06-24 15:13 | RAD ---
HISTORY: Left foot pain COMPARISONS: February 04, 2016 VIEWS: 3, Frontal, lateral, and oblique views of the left foot FINDINGS: BONE DENSITY: Normal. BONES: There is no displaced fracture. There are calcaneal enthesophytes JOINTS: There is osteoarthritis of the first MTP joint ALIGNMENT: There is no dislocation. SOFT TISSUES: Unremarkable. OTHER FINDINGS: None. IMPRESSION: MILD DEGENERATIVE CHANGES
== END 2016-06-24 15:34 | disposition home or self-care (01) ==
LOC: UCEAST 14:16
DX: M70.872 Other soft tissue disorders related to use, overuse and pressure, left ankle and foot (principal); Y93.89 Activity, other specified; M19.072 Primary osteoarthritis, left ankle and foot; Z88.6 Allergy status to analgesic agent; E11.9 Type 2 diabetes mellitus without complications; I10 Essential (primary) hypertension; J45.909 Unspecified asthma, uncomplicated; F32.9 Major depressive disorder, single episode, unspecified; E66.9 Obesity, unspecified
CPT/HCPCS: 99212; G0463

== ENCOUNTER 2016-08-22 21:01 | Emergency (ER) | payer MEDICARE ==
[2016-08-22] MEDS ORDERED: NS 0.9% 1000 ML* 1,000 ML IV ONE (21:45)
[2016-08-22] MEDS ORDERED: Insulin REGULAR(*) 1 UNITS UNIT SUBCUT ONE (22:05)
[2016-08-22 22:25] LABS: Albumin 3.7 g/dL (3.2-5.2); BUN/Creatinine Ratio 21.3 (8-20); Calcium 8.8 mg/dL (8.6-10.3); EGFR African American 138.4 (>60); EGFR Non-African American 107.6 (>60); Globulin 2.6 g/dL (2-4); Magnesium 1.9 mg/dL (1.9-2.7); Potassium 3.9 mmol/L (3.5-5.0); Total Bilirubin 0.4 mg/dL (0.2-1.0); Total Protein 6.3 g/dL (6.4-8.9)
[2016-08-22 22:26] LABS: Hematocrit 45 % (42-52); Hemoglobin 14.6 g/dl (14.0-18.0); Mean Corpuscular HGB Conc 33 g/dl (31-36); Mean Corpuscular Hemoglobin 28 pg (27-31); Mean Corpuscular Volume 87 fL (80-94); Mean Platelet Volume 8 um3 (7.4-10.4); Red Blood Count 5.16 10^6/ul (4.0-5.4); Red Cell Distribution Width 15 % (10.5-15); White Blood Count 8.5 10^3/ul (3.5-10.8)
--- NOTE | 2016-08-22 22:46 | ED ---
Sofie Luna Edward, scribed for Aly Hanks MD on 08/22/16 at 2149 . Skin Complaint - HPI Summary HPI Summary: 41 y/o male presents to ED with cyst on penis. Cyst has been present for a couple of weeks and has gotten progressively worse. Associated sx: soreness and erythema in the cyst area. PMHx DM. Patient is not a smoker. - History of Current Complaint Chief Complaint: EDRashSkinAbscess Time Seen by Provider: 08/22/16 21:42 Stated Complaint: POSS INFECTION NEAR GENITALIA Hx Obtained From: Patient Onset/Duration: Started Weeks Ago, Still Present Timing: Constant Onset Severity: Mild Current Severity: Severe Pain Intensity: 9 Pain Scale Used: 0-10 Numeric Character: Swelling, Pain - Soreness, Redness - Additional Pertinent History Primary Care Physician: FANTA - Allergy/Home Medications Allergies/Adverse Reactions: Allergies Allergy/AdvReac Type Severity Reaction Status Date / Time Ibuprofen Allergy Severe "MY Verified 06/24/16 14:27 KIDNEYS SHUT DOWN" [place] Oil Allergy Hives/Diff. Verified 06/24/16 14:27 Breathing/I tching Dextromethorphan AdvReac Intermediate Nausea Verified 06/24/16 14:27 [From Mucinex DM] Guaifenesin [From Mucinex DM] AdvReac Intermediate Nausea Verified 06/24/16 14: 27 Yellow Dye [From Mucinex DM] AdvReac Intermediate Nausea Verified 06/24/16 14:27 PMH/Surg Hx/FS Hx/Imm Hx Previously Healthy: No Endocrine/Hematology History: Reports: Hx Diabetes Denies: Hx Thyroid Disease Cardiovascular History: Reports: Hx Hypertension Respiratory History: Reports: Hx Asthma, Hx Sleep Apnea - uses cpap Denies: Hx Chronic Obstructive Pulmonary Disease (COPD) GI History: Denies: Hx Ulcer History: Reports: Other Problems/Disorders - kidney "issues" when he takes ibuprofen Denies: Hx Renal Disease Musculoskeletal History: Reports: Hx Gout Psychiatric History: Reports: Hx Depression - Cancer History Cancer Type, Location and Year: none - Surgical History Surgery Procedure, Year, and Place: RIGHT WRIST FRACTURE, SCREWS PLACED. Hx Anesthesia Reactions: No - Immunization History Date of Tetanus Vaccine: UNKNOWN Infectious Disease History: Denies: Hx Hepatitis, Hx Human Immunodeficiency Virus (HIV), Traveled Outside the [place] in Last 30 Days - Family History Known Family History: Positive: Hypertension, Diabetes, Other - cancer - Social History Alcohol Use: None Hx Substance Use: No Substance Use Type: Reports: None Hx Tobacco Use: No Smoking Status (MU): Never Smoked Tobacco Review of Systems Constitutional: Negative Eyes: Negative ENT: Negative Cardiovascular: Negative Respiratory: Negative Gastrointestinal: Negative Positive: pain - On cyst area Skin: Other - Cyst on penis - redness and soreness Neurological: Negative Psychological: Normal All Other Systems Reviewed And Are Negative: Yes Physical Exam Triage Information Reviewed: Yes Vital Signs On Initial Exam: Initial Vitals Temp Pulse Resp BP Pulse Ox 96.9 F 95 20 119/70 97 08/22/16 21:04 08/22/16 21:04 08/22/16 21:04 08/22/16 21:04 08/22/16 21:04 Vital Signs Reviewed: Yes Appearance: Positive: Obese - morbidly Skin: Positive: Warm, Other - tinea like rash lower abd/panus Head/Face: Positive: Normal Head/Face Inspection Eyes: Positive: ISMA ENT: Positive: Hearing grossly normal Neck: Positive: Supple Respiratory/Lung Sounds: Positive: Breath Sounds Present Cardiovascular: Positive: RRR Abdomen Description: Positive: Nontender, Soft - obese Bowel Sounds: Positive: Present Musculoskeletal: Positive: Strength/ROM Intact Neurological: Positive: Alert, Oriented to Person Place, Time Psychiatric: Positive: Affect/Mood Appropriate Diagnostics - Vital Signs Vital Signs Temp Pulse Resp BP Pulse Ox 08/22/16 21:04 96.9 F 95 20 119/70 97 - Laboratory Lab Results: Lab Results 08/22/16 08/22/16 08/22/16 Range/Units 21:58 21:58 21:58 WBC 8.5 (3.5-10.8) 10^3/ul RBC 5.16 (4.0-5.4) 10^6/ul Hgb 14.6 (14.0-18.0) g/dl Hct 45 (42-52) % MCV 87 (80-94) fL MCH 28 (27-31) pg MCHC 33 (31-36) g/dl RDW 15 (10.5-15) % Plt Count 168 (150-450) 10^3/ul MPV 8 (7.4-10.4) um3 Neut % (Auto) 79.6 (38-83) % Lymph % (Auto) 11.2 L (25-47) % [place] % (Auto) 6.4 (1-9) % Eos % (Auto) 2.2 (0-6) % Baso % (Auto) 0.6 (0-2) % Absolute Neuts (auto) 6.8 (1.5-7.7) 10^3/ul Absolute Lymphs (auto) 0.9 L (1.0-4.8) 10^3/ul Absolute Monos (auto) 0.5 (0-0.8) 10^3/ul Absolute Eos (auto) 0.2 (0-0.6) 10^3/ul Absolute Basos (auto) 0 (0-0.2) 10^3/ul Absolute Nucleated RBC 0 10^3/ul Nucleated RBC % 0 Sodium 127 L (133-145) mmol/L Potassium 3.9 (3.5-5.0) mmol/L Chloride 98 L (101-111) mmol/L Carbon Dioxide 18 L (22-32) mmol/L Anion Gap 11 (2-11) mmol/L BUN 17 (6-24) mg/dL Creatinine 0.80 (0.67-1.17) mg/dL Est GFR ( Amer) 138.4 (>60) Est GFR (Non-Af Amer) 107.6 (>60) BUN/Creatinine Ratio 21.3 H (8-20) Glucose 510 H* (70-100) mg/dL Lactic Acid 1.1 (0.5-2.0) mmol/L Calcium 8.8 (8.6-10.3) mg/dL Magnesium 1.9 (1.9-2.7) mg/dL Total Bilirubin 0.40 (0.2-1.0) mg/dL AST 10 L (13-39) U/L ALT 14 (7-52) U/L Alkaline Phosphatase 74 (34-104) U/L Total Protein 6.3 L (6.4-8.9) g/dL Albumin 3.7 (3.2-5.2) g/dL Globulin 2.6 (2-4) g/dL Albumin/Globulin Ratio 1.4 (1-3) Result Diagrams: 08/22/16 21:58 08/22/16 21:58 Lab Statement: Any lab studies that have been ordered have been reviewed, and results considered in the medical decision making process. Re-Evaluation - Re-Evaluation First Eval Change: Improved - reslts d/w pt Course/Dx - Course Assessment/Plan: 41 y/o male presents to ED with cyst on penis. Cyst has been present for a couple of weeks and has gotten progressively worse. Associated sx : soreness and erythema in the cyst area. PMHx DM. Patient is not a smoker. Patient will be discharged home with uncontrolled DM and a fungal infection, with follow up with his PCP in 2-3 days. Pt is agreeable with this plan. - Diagnoses Provider Diagnoses: Uncontrolled diabetes mellitus, Fungal infection Discharge - Discharge Plan Condition: Fair Disposition: HOME Prescriptions: Clotrimazole 1% TOPICAL (NF) [Lotrimin 1% TOPICAL (NF)] 1 applic TOPICAL Q6H #1 tube Patient Education Materials: Rufus Izaguirre (ED) Referrals: Lise Davis MD [Primary Care Provider] - 3 Days (Please follow up in 2- 3 days.) The documentation as recorded by the Sofie colon Edward accurately reflects the service I personally performed and the decisions made by , Aly Hanks MD.
[2016-08-23] MEDS ORDERED: Insulin REGULAR(*) 1 UNITS UNIT SUBCUT ONE (00:04)
[2016-08-23] MEDS ORDERED: NS 0.9% 1000 ML* 1,000 ML IV ONE (00:04)
[2016-08-23] MEDS ORDERED: Clotrimazole 1% CREAM* 30 GM TOPICAL ONE (01:19)
[2016-08-23 02:23] VITALS: BP 124/64
== END 2016-08-23 02:27 | disposition home or self-care (01) ==
LOC: ED 21:01
DX: N48.89 Other specified disorders of penis (principal); E11.65 Type 2 diabetes mellitus with hyperglycemia; I10 Essential (primary) hypertension; J45.909 Unspecified asthma, uncomplicated; F32.9 Major depressive disorder, single episode, unspecified; E66.01 Morbid (severe) obesity due to excess calories; Z88.6 Allergy status to analgesic agent
CPT/HCPCS: 36415; 80053; 82947; 83605; 83735; 85025; 96360; 96361; 96372; 99285

== ENCOUNTER 2017-04-04 11:49 | Emergency (ER) | payer MEDICARE ==
[2017-04-04 12:46] VITALS: BP 166/86
--- NOTE | 2017-04-04 12:51 | UC ---
Lower Extremity/Ankle HPI - HPI Summary HPI Summary: 42 yo male twisted right ankle yesterday painful wt bearing diabetic with BMI 65 - History of Current Complaint Chief Complaint: UCLowerExtremity Stated Complaint: ANKLE INJURY Time Seen by Provider: 04/04/17 12:50 Hx Obtained From: Patient Onset/Duration: Sudden Onset Severity Initially: Severe Severity Currently: Severe Pain Intensity: 8 Pain Scale Used: 0-10 Numeric Aggravating Factor(s): Standing, Ambulation Alleviating Factor(s): Rest, Elevation Able to Bear Weight: Yes - Allergies/Home Medications Allergies/Adverse Reactions: Allergies Allergy/AdvReac Type Severity Reaction Status Date / Time dextromethorphan Allergy Nausea Verified 04/04/17 13:44 [From Mucinex DM] guaifenesin [From Mucinex DM] Allergy Nausea Verified 04/04/17 13:44 ibuprofen [From Motrin] Allergy rash/kidneys Verified 04/04/17 13:44 shut down orange oil Allergy hives Uncoded 04/04/17 13:45 diff breathing PMH/Surg Hx/FS Hx/Imm Hx Endocrine History: Diabetes, Dyslipidemia Cardiovascular History: Hypertension - Surgical History Surgical History: Yes Surgery Procedure, Year, and Place: RIGHT WRIST FRACTURE, SCREWS PLACED. - Family History Known Family History: Positive: Hypertension, Diabetes, Other - cancer - Social History Alcohol Use: None Substance Use Type: None Smoking Status (MU): Never Smoked Tobacco - Immunization History Most Recent Influenza Vaccination: Fall 2015 Most Recent Tetanus Shot: unknown Most Recent Pneumonia Vaccination: never Review of Systems Constitutional: Negative Skin: Negative Eyes: Negative ENT: Negative Respiratory: Negative Cardiovascular: Negative Gastrointestinal: Negative Genitourinary: Negative Motor: Negative Neurovascular: Negative Musculoskeletal: Arthralgia Neurological: Negative Psychological: Negative Is Patient Immunocompromised?: No All Other Systems Reviewed And Are Negative: Yes Physical Exam Triage Information Reviewed: Yes Appearance: No Pain Distress, Obese Vital Signs: Initial Vital Signs Temp 97.7 F 04/04/17 12:44 Pulse 93 04/04/17 12:44 Resp 17 04/04/17 12:44 BP 166/86 04/04/17 12:44 Pulse Ox 100 04/04/17 12:44 Eyes: Positive: Conjunctiva Clear ENT: Positive: Hearing grossly normal. Negative: Nasal congestion, Nasal drainage, Trismus, Muffled voice, Hoarse voice Neck: Positive: Supple, Nontender Respiratory: Positive: Lungs clear, Normal breath sounds, No respiratory distress, No accessory muscle use Cardiovascular: Positive: RRR, No Murmur Musculoskeletal: Positive: Other: - see image Diagnostics - Radiology No standard instances Xray Interpretation: No Acute Changes - DJD Radiology Interpretation Completed By: Radiologist Lower Extremity Course/Dx - Differential Dx/Diagnosis Provider Diagnoses: right ankle sprain Discharge - Discharge Plan Condition: Stable Disposition: HOME Patient Education Materials: Ankle Sprain (ED), R.I.C.E. Treatment (ED) Forms: *Work Release Referrals: Lise Davis MD [Primary Care Provider] - 1 Week Additional Instructions: PT consult rest ice elevate recheck next week Images Feet (Multiple View): 1 - tender
--- NOTE | 2017-04-04 14:10 | RAD ---
Indication: RIGHT ankle pain and edema following walking last night. Previous sprains. Comparison: March 30, 1999 Technique: AP, mortise, and lateral views RIGHT ankle. Report: Normal articular alignment. Negative for joint space narrowing, effusion, or fracture. Mild osteophytosis throughout the [id number]. Mild nonfocal soft tissue swelling. IMPRESSION: Negative for fracture. Mild polyarticular osteoarthritis.
== END 2017-04-04 14:54 | disposition home or self-care (01) ==
LOC: UCEAST 11:49
DX: S93.401A Sprain of unspecified ligament of right ankle, initial encounter (principal); X50.1XXA Overexertion from prolonged static or awkward postures, initial encounter; Y93.9 Activity, unspecified; Y92.9 Unspecified place or not applicable; M15.9 Polyosteoarthritis, unspecified; E11.9 Type 2 diabetes mellitus without complications; E78.5 Hyperlipidemia, unspecified; I10 Essential (primary) hypertension; E66.9 Obesity, unspecified; Z88.6 Allergy status to analgesic agent; Z88.8 Allergy status to other drugs, medicaments and biological substances
CPT/HCPCS: 99211; G0463

== ENCOUNTER 2017-04-11 20:45 | Emergency (ER) | payer MEDICARE ==
--- NOTE | 2017-04-11 21:38 | RAD ---
INDICATION: Left knee pain after slip and fall injury COMPARISON: None TECHNIQUE: 4 view radiograph of the left knee. FINDINGS: Overlying the lateral femoral condyle is a bony stenosis with an obliquely oriented lucent line along its inferior portion running superior to inferior. The visualized bones are otherwise intact and appropriately aligned. Degenerative changes include narrowing of the medial compartment and mild marginal osteophyte formation along the medial margins tibial plateau on the sunrise view image. IMPRESSION: Questionable avulsion fracture along the lateral femoral condyle bony exam stenosis in addition to degenerative changes. If the patient's symptoms persist, follow-up imaging is recommended.
--- NOTE | 2017-04-11 22:12 | RAD ---
INDICATION: Mid back pain after slip and fall injury COMPARISON: There are no prior studies available for comparison. TECHNIQUE: Contiguous axial sections were obtained beginning lower cervical vertebra and continuing through the upper lumbar spine. Images were reconstructed in the sagittal and coronal planes. FINDINGS: The vertebral bodies and facet joints are appropriately aligned. Degenerative changes include loss of intervertebral disc height and mild marginal osteophyte formation. The visualized lungs are clear. The visualized soft tissue structures in the abdomen are grossly normal. IMPRESSION: Mild degenerative changes of the thoracic spine without acute fracture or dislocation identified.
--- NOTE | 2017-04-11 22:19 | RAD ---
INDICATION: Back pain after a fall COMPARISON: There are no prior studies available for comparison. TECHNIQUE: Contiguous axial sections were obtained beginning lower thoracic vertebra and continuing through the sacrum. Images were reconstructed in the sagittal and coronal planes. FINDINGS: The vertebra are in normal alignment. No fracture is seen. There is no hyperdense material in the thecal sac to indicate acute hemorrhage. Degenerative changes of the lower thoracic and lumbar spine includes loss of intervertebral disc height. There is no evidence for significant disc bulge or herniation. There is no evidence for spinal canal narrowing. The visualized soft tissues do not exhibit any acute abnormalities. IMPRESSION: Mild degenerative changes without acute fracture or dislocation.
[2017-04-11] MEDS ORDERED: oxyCODONE/Acetamin 5/325 MG* TAB PO ONE (22:48)
--- NOTE | 2017-04-11 22:54 | ED ---
Chase Luna Thomas, scribed for Philippe Hoffman MD on 04/11/17 at 2109 . Lower Extremity - HPI Summary HPI Summary: The patient is a 42 year old male complaining of left knee, left elbow, and mid/ upper back pain status post falling forward on the ice today at 19:00. He fell forwards and reports loss of consciousness for 3-4 minutes. The patient reports that he has chronic back pain. Past medical history includes DM and HTN. - History of Current Complaint Chief Complaint: EDExtremityLower Stated Complaint: FALL Time Seen by Provider: 04/11/17 20:52 Hx Obtained From: Patient Mechanism Of Injury: Fall From A Standing Position Onset of Pain: Immediate Onset/Duration: Still Present Severity Currently: Severe Pain Intensity: 9 Pain Scale Used: 0-10 Numeric Timing: Constant Location: Is Discrete @ - left knee, left elbow, mid/upper back Associated Signs And Symptoms: Positive: Other - Chronic back pain, left knee pain, left elbow pain, mid/upper back pain. Negative: Fever Aggravating Factor(s): Nothing Alleviating Factor(s): Nothing - Allergies/Home Medications Allergies/Adverse Reactions: Allergies Allergy/AdvReac Type Severity Reaction Status Date / Time dextromethorphan Allergy Nausea Verified 04/04/17 13:44 [From Mucinex DM] guaifenesin [From Mucinex DM] Allergy Nausea Verified 04/04/17 13:44 ibuprofen [From Motrin] Allergy rash/kidneys Verified 04/04/17 13:44 shut down orange oil Allergy hives Uncoded 04/04/17 13:45 diff breathing PMH/Surg Hx/FS Hx/Imm Hx Endocrine/Hematology History: Reports: Hx Diabetes Denies: Hx Thyroid Disease Cardiovascular History: Reports: Hx Hypertension Respiratory History: Reports: Hx Asthma, Hx Sleep Apnea - uses cpap Denies: Hx Chronic Obstructive Pulmonary Disease (COPD) GI History: Denies: Hx Ulcer History: Reports: Other Problems/Disorders - kidney "issues" when he takes ibuprofen Denies: Hx Renal Disease Musculoskeletal History: Reports: Hx Gout Psychiatric History: Reports: Hx Depression - Cancer History Cancer Type, Location and Year: none - Surgical History Surgery Procedure, Year, and Place: RIGHT WRIST FRACTURE, SCREWS PLACED. Hx Anesthesia Reactions: No - Immunization History Date of Tetanus Vaccine: UNKNOWN Infectious Disease History: No Infectious Disease History: Denies: Hx Hepatitis, Hx Human Immunodeficiency Virus (HIV), Traveled Outside the [place] in Last 30 Days - Family History Known Family History: Positive: Hypertension, Diabetes, Other - cancer - Social History Alcohol Use: None Hx Substance Use: No Substance Use Type: Reports: None Hx Tobacco Use: No Smoking Status (MU): Never Smoked Tobacco Review of Systems Negative: Fever Positive: Other - Left knee, left elbow, back pain Neurological: Other - LOC All Other Systems Reviewed And Are Negative: Yes Physical Exam - Summary Physical Exam Summary: VITAL SIGNS: Reviewed. GENERAL: Patient is a morbidly obese MALE who is lying comfortable in the stretcher. Patient is not in any acute respiratory distress. HEAD AND FACE: No signs of trauma. No ecchymosis, hematomas or skull depressions. No sinus tenderness. EYES: PERRLA, EOMI x 2, No injected conjunctiva, no nystagmus. EARS: Hearing grossly intact. Ear canals and tympanic membranes are within normal limits. MOUTH: Oropharynx within normal limits. NECK: Supple, trachea is midline, no adenopathy, no JVD, no carotid bruit, no c- spine tenderness, neck with full ROM. CHEST: Symmetric, no tenderness at palpation LUNGS: Clear to auscultation bilaterally. No wheezing or crackles. CVS: Regular rate and rhythm, S1 and S2 present, no murmurs or gallops appreciated. ABDOMEN: Soft, non-tender. No signs of distention. No rebound no guarding, and no masses palpated. Bowel sounds are normal. BACK: He is tender to the L-Spine and T-Spine EXTREMITIES: He has an abrasion over the left knee. There is decreased range of motion of the left knee secondary to pain. Otherwise, FROM in all other major joints, no edema, no cyanosis or clubbing. NEURO: Alert and oriented x 3. No acute neurological deficits. Speech is normal and follows commands. SKIN: Dry and warm Triage Information Reviewed: Yes Vital Signs On Initial Exam: Initial Vitals Temp Pulse Resp BP Pulse Ox 98 F 94 21 137/71 96 04/11/17 20:48 04/11/17 20:48 04/11/17 20:48 04/11/17 20:48 04/11/17 20:48 Vital Signs Reviewed: Yes Diagnostics - Vital Signs Vital Signs Temp Pulse Resp BP Pulse Ox 04/11/17 20:50 95 95 02/12/18 20:49 137/71 04/11/17 20:48 98 F 94 21 137/71 96 - Laboratory Lab Statement: Any lab studies that have been ordered have been reviewed, and results considered in the medical decision making process. - Radiology Knee XR Xray Interpretation: Positive (See Comments) - Questionable avulsion fracture along the lateral femoral condyle bony exam stenosis in addition to degenerative changes. Dr. Hoffman has reviewed this report. Radiology Interpretation Completed By: Radiologist - CT T-Spine CT CT Interpretation: No Acute Changes - Mild degenerative changes of the thoracic spine without acute fracture or dislocation identified. Dr. Hoffman has reviewed this report. CT Interpretation Completed By: Radiologist L-Spine CT CT Interpretation: No Acute Changes - Mild degenerative changes without acute fracture or dislocation. Dr. Hoffman has reviewed this report. CT Interpretation Completed By: Radiologist Lower Extremity Course/Dx - Course Assessment/Plan: The patient is a 42 year old male complaining of left knee, left elbow, and mid/upper back pain status post falling forward on the ice today at 19:00. Knee XR shows Questionable avulsion fracture along the lateral femoral condyle bony exam stenosis in addition to degenerative changes. CT L- spine and T-Spine were negative for fracture. The patient will be discharged home with diagnosis of back pain and fall. He will follow up with primary care. - Diagnoses Provider Diagnoses: Fall, Back pain Discharge - Discharge Plan Condition: Stable Disposition: HOME Patient Education Materials: Back Pain (ED) Referrals: Lise Davis MD [Primary Care Provider] - 3 Days Additional Instructions: Follow up with your primary care physician in three days. Return to the emergency department for any new or worsening symptoms. The documentation as recorded by the Chase colon Thomas accurately reflects the service I personally performed and the decisions made by Yasmin knapp Abdul, MD.
[2017-04-11 23:17] VITALS: BP 135/74
== END 2017-04-11 23:16 | disposition home or self-care (01) ==
LOC: ED 20:45
DX: M54.9 Dorsalgia, unspecified (principal); M25.522 Pain in left elbow; Z86.79 Personal history of other diseases of the circulatory system; Z91.81 History of falling
CPT/HCPCS: 72128; 72131; 99282; A9270-GY

== ENCOUNTER 2017-04-14 11:32 | Emergency (ER) | payer MEDICARE ==
--- NOTE | 2017-04-14 13:15 | ED ---
Skin Complaint - HPI Summary HPI Summary: 42 male presents to ED with complaints of left groin rash/abscess that has been ongoing for a week. Patient states he gets it all the time but usually it goes away however this one hasn't. States he thinks there are two abscess of left groin. Denies any medication. Pain on palpation. No known fever. States he has felt tired. Does have poorly controlled Type II DM. Denies itching or drainage. No other complaints. No abdominal pain or urinary symptoms. Has been eating and drinking. PMHx includes Type II DM, HTN Gout, high cholesterol. - History of Current Complaint Chief Complaint: EDRashSkinAbscess Time Seen by Provider: 04/14/17 12:42 Stated Complaint: POSSIBLE CYSTS Hx Obtained From: Patient Onset/Duration: Started Weeks Ago - 1, Still Present, Worse Since Skin Exposure Onset/Duration: Weeks Ago - 1 Timing: Constant Onset Severity: Mild Current Severity: Moderate Pain Intensity: 10 Pain Scale Used: 0-10 Numeric - when touching Skin Location: Discrete - left groin Character: Redness, Painful Aggravating Symptom(s): Nothing Alleviating Symptom(s): Nothing Associated Signs & Symptoms: Rash, Tenderness - at rash - Additional Pertinent History Primary Care Physician: FANTA - Allergy/Home Medications Allergies/Adverse Reactions: Allergies Allergy/AdvReac Type Severity Reaction Status Date / Time dextromethorphan Allergy Nausea Verified 04/04/17 13:44 [From Mucinex DM] guaifenesin [From Mucinex DM] Allergy Nausea Verified 04/04/17 13:44 ibuprofen [From Motrin] Allergy rash/kidneys Verified 04/04/17 13:44 shut down orange oil Allergy hives Uncoded 04/04/17 13:45 diff breathing PMH/Surg Hx/FS Hx/Imm Hx Endocrine/Hematology History: Reports: Hx Diabetes Denies: Hx Thyroid Disease Cardiovascular History: Reports: Hx Hypertension Respiratory History: Reports: Hx Asthma, Hx Sleep Apnea - uses cpap Denies: Hx Chronic Obstructive Pulmonary Disease (COPD) GI History: Denies: Hx Ulcer History: Reports: Other Problems/Disorders - kidney "issues" when he takes ibuprofen Denies: Hx Renal Disease Musculoskeletal History: Reports: Hx Gout Psychiatric History: Reports: Hx Depression - Cancer History Cancer Type, Location and Year: none - Surgical History Surgery Procedure, Year, and Place: RIGHT WRIST FRACTURE, SCREWS PLACED. Hx Anesthesia Reactions: No - Immunization History Date of Tetanus Vaccine: UNKNOWN Immunizations Up to Date: Yes Infectious Disease History: No Infectious Disease History: Denies: Hx Hepatitis, Hx Human Immunodeficiency Virus (HIV), Traveled Outside the [place] in Last 30 Days - Family History Known Family History: Positive: Hypertension, Diabetes, Other - cancer - Social History Alcohol Use: None Hx Substance Use: No Substance Use Type: Reports: None Hx Tobacco Use: No Smoking Status (MU): Never Smoked Tobacco Review of Systems Constitutional: Negative Cardiovascular: Negative Respiratory: Negative Gastrointestinal: Negative Positive: Rash All Other Systems Reviewed And Are Negative: Yes Physical Exam Triage Information Reviewed: Yes Vital Signs On Initial Exam: Initial Vitals Temp Pulse Resp BP Pulse Ox 99.3 F 107 24 132/60 95 04/14/17 11:45 04/14/17 11:45 04/14/17 11:45 04/14/17 11:45 04/14/17 11:45 HR improved to 98, temp 97F after fluids and tylenol Vital Signs Reviewed: Yes Appearance: Positive: Well-Appearing, No Pain Distress, Well-Nourished Skin: Positive: Warm, Skin Color Reflects Adequate Perfusion, Dry, Erythema @ - and induration diffusely in left groin, firm and tender to touch, erythematous, no palpable abscess or drainage appreciated. multiple folds/panus. in abdomen panus/intertriginous folds does have erythema with white clumpy discharge appears to be regino, pruritic. Negative: Cold, Numb, Cyanosis @, Pale Head/Face: Positive: Normal Head/Face Inspection ENT: Positive: Pharynx normal Respiratory/Lung Sounds: Positive: Clear to Auscultation, Breath Sounds Present. Negative: Rales, Rhonchi, Wheezes Cardiovascular: Positive: Normal, RRR, Pulses are Symmetrical in both Upper and Lower Extremities. Negative: Murmur, Rub Abdomen Description: Positive: Nontender, No Organomegaly, Soft, Other: - skin exam described above Bowel Sounds: Positive: Present Male Genital Exam: Positive: normal genitalia, erythema - rash left groin panus/ intertrignous area, not gentalia Musculoskeletal: Positive: Normal, Strength/ROM Intact Neurological: Positive: Normal, Sensory/Motor Intact, Alert, Oriented to Person Place, Time Diagnostics - Vital Signs Vital Signs Temp Pulse Resp BP Pulse Ox 04/14/17 11:45 99.3 F 107 24 132/60 95 - Laboratory Result Diagrams: 04/14/17 13:00 04/14/17 13:00 Lab Statement: Any lab studies that have been ordered have been reviewed, and results considered in the medical decision making process. Re-Evaluation - Re-Evaluation First Eval Re-Evaluation Time: 14:30 Change: Unchanged - given tylenol and fluids, sleeping upon arrival Second Eval Re-Evaluation Time: 16:00 Change: Improved - temp improved, feeling better after fluids and improved vitals. updated on ultrasound report. agrees with trial of outpatient therapy. Course/Dx - Course Course Of Treatment: febrile, tachycardia improved after two liter fluids and tylenol. given 1g rocephin. patient improved. vitals improved. Slightly dehydrated, rehydrated with oral liquids and 2 L fluids. labs obtained WBC 13 with left shift. glucose 283 which also improved after 2L fluids. Patient states that is typically where is glucose is, poorly controlled. improved with fluids, asymptomatic. will take metformin and prescribed medication when goes home as directed. pending blood cultures, obtained. educated on inpatient versus outpatient treatment. will trial outpatient therapy although may fail or may need I&D if fluid turns into an abscess. keflex and bactrim. no fluid/ drainage to culture. also given nystatin to help with intertriginous candidiasis. tylenol for fever/discomfort. keep skin clean and dry, educated on importance of hygiene. aware of worsening signs and symptoms to watch out for and to return if occur. follow up with pcp. - Differential Diagnoses - Skin Complaint Differential Diagnoses: Abscess, Cellulitis, Eczema, Other - intertriginous candidiasis - Diagnoses Provider Diagnoses: Cellulitis of groin, left, Intertriginous candidiasis Discharge - Discharge Plan Condition: Stable Disposition: HOME Prescriptions: Cephalexin CAP* [Keflex CAP*] 500 mg PO TID #30 cap Nystatin CREAM* [Nystatin Cream*] 1 applic TOPICAL BID #1 tube Sulfamethox/Trimethoprim DS* [Bactrim DS 800/160 TAB*] 1 tab PO BID #20 tab Patient Education Materials: Cellulitis (ED) Referrals: Lise Davis MD [Primary Care Provider] - Additional Instructions: Take prescribed medication as directed until entire doses are finished. Tylenol every 6 hours for fever. Increase fluid intake. Keep glucose under strict control or infection may worsen. Shower daily and be sure to keep area clean and very dry. Use prescribed cream to help with candidiasis of abdomen as well. Any new or worsening symptoms, such as high fever, feeling ill, abscess develops , or worsening symptoms please seek medical attention promptly and return to ED. Follow up with PCP in 3-5 days, sooner if needed for recheck.
[2017-04-14 13:16] LABS: ABS Basophils 0.2 10^3/ul (0-0.2); ABS Eosinophils 0 10^3/ul (0-0.6); ABS Lymphocytes 0.5 10^3/ul (1.0-4.8); ABS Monocytes 0.7 10^3/ul (0-0.8); ABS Neutrophils 11.9 10^3/ul (1.5-7.7); ABS Nucleated RBC 0 10^3/ul; Eosinophil % 0.3 % (0-6); Hematocrit 43 % (42-52); Hemoglobin 14.3 g/dl (14.0-18.0); Mean Corpuscular HGB Conc 33 g/dl (31-36); Mean Corpuscular Hemoglobin 28 pg (27-31); Mean Corpuscular Volume 84 fL (80-94); Mean Platelet Volume 8 um3 (7.4-10.4); Nucleated Red Blood Cells % 0; Platelet Count 187 10^3/ul (150-450); Red Blood Count 5.11 10^6/ul (4.0-5.4); Red Cell Distribution Width 15 % (10.5-15); White Blood Count 13.3 10^3/ul (3.5-10.8)
[2017-04-14 13:32] LABS: EGFR Non-African American 104.1 (>60)
[2017-04-14] MEDS ORDERED: cefTRIAXone(*) 1 GM in NS 0.9% 50 ML* 50 ML IVPB ONE (13:33)
[2017-04-14] MEDS ORDERED: NS 0.9% 1000 ML* 1,000 ML IV ONE ×2 (13:34→14:35)
--- NOTE | 2017-04-14 14:11 | RAD ---
Indication: Inflamed edematous palpable region at the LEFT groin. Comparison: No relevant prior exams available on [place] [facility] [place] Technique: Ultrasound of the LEFT groin corresponding with the region of clinical concern as directed by the patient at the time of the exam. Cine loop obtained. Report: Markedly edematous skin and subcutaneous tissues. Peripherally acute angled pocket of grossly anechoic fluid identified measuring up to 1.5 x 0.6 x 0.9 cm for an estimated volume of 0.5 to 1 mL. No thick irregular margin to the collection to favor abscess. No bowel containing hernia visualized.
[2017-04-14] MEDS ORDERED: Acetaminophen TAB* 325 MG PO ONE (15:42)
[2017-04-14 17:05] VITALS: BP 141/74
[2017-04-14 17:21] LABS: Urine Appearance Clear; Urine Blood Negative (Negative); Urine Color Yellow; Urine Ketones Trace (Negative); Urine Protein 1+(30 mg/dL) (Negative); Urine Specific Gravity 1.012 (1.010-1.030); Urine Urobilinogen Negative (Negative)
== END 2017-04-14 17:17 | disposition home or self-care (01) ==
LOC: ED 11:32
DX: L03.314 Cellulitis of groin (principal); B37.2 Candidiasis of skin and nail; E11.9 Type 2 diabetes mellitus without complications; I10 Essential (primary) hypertension; G47.30 Sleep apnea, unspecified; E78.00 Pure hypercholesterolemia, unspecified
CPT/HCPCS: 36415; 80053; 81003; 81015; 83605; 85025; 87040; 96374; 99283; A9270-GY; J0696

== ENCOUNTER 2017-05-18 18:42 | Emergency (ER) | payer MEDICARE ==
[2017-05-18 19:07] LABS: ABS Basophils 0.1 10^3/ul (0-0.2); ABS Eosinophils 0.2 10^3/ul (0-0.6); ABS Lymphocytes 0.9 10^3/ul (1.0-4.8); ABS Monocytes 0.4 10^3/ul (0-0.8); ABS Neutrophils 5.6 10^3/ul (1.5-7.7); ABS Nucleated RBC 0 10^3/ul; Eosinophil % 2.4 % (0-6); Hematocrit 43 % (42-52); Hemoglobin 14.5 g/dl (14.0-18.0); Mean Corpuscular HGB Conc 34 g/dl (31-36); Mean Corpuscular Hemoglobin 28 pg (27-31); Mean Corpuscular Volume 85 fL (80-94); Mean Platelet Volume 7.9 um3 (7.4-10.4); Nucleated Red Blood Cells % 0; Platelet Count 178 10^3/ul (150-450); Red Blood Count 5.11 10^6/ul (4.0-5.4); Red Cell Distribution Width 16 % (10.5-15); White Blood Count 7.2 10^3/ul (3.5-10.8)
[2017-05-18 19:16] LABS: INR 0.95 (0.77-1.02)
--- NOTE | 2017-05-18 19:18 | RAD ---
HISTORY: Chest pain COMPARISONS: April 05, 2015 VIEWS: 1: frontal portable view of the chest at 7:11 PM FINDINGS: LINES AND TUBES: None. CARDIOMEDIASTINAL SILHOUETTE: The cardiomediastinal silhouette is normal for portable technique. PLEURA: The costophrenic angles are sharp. No pleural abnormalities are noted. LUNG PARENCHYMA: The lungs are clear. ABDOMEN: The upper abdomen is clear. There is no subphrenic gas. BONES AND SOFT TISSUES: No bone or soft tissue abnormalities are noted. IMPRESSION: NO ACTIVE CARDIOPULMONARY DISEASE.
[2017-05-18 19:24] LABS: EGFR Non-African American 88.9 (>60)
--- NOTE | 2017-05-18 20:28 | ED ---
HPI Chest Pain - HPI Summary HPI Summary: 42 yrs old male C/O left side mild chest discomfort with left arm numbness.No radiation, No associated symptoms.Symptoms started at 6 pm.better at this time. Pt had stress test in the past that was negative. - History of Current Complaint Chief Complaint: EDChestPainROMI Time Seen by Provider: 05/18/17 20:08 Hx Obtained From: Patient Onset/Duration: Started Hours Ago - 6 pm. Time of Onset: 18:00 Timing: Constant Initial Severity: Moderate Current Severity: Mild Pain Intensity: 3 Pain Scale Used: 0-10 Numeric Chest Pain Location: Left Anterior Chest Pain Radiates: No Character: Dull/Aching Aggravating Factor(s): Nothing Alleviating Factor(s): Nothing Associated Signs and Symptoms: Positive: Negative - Additional Pertinent History Primary Care Physician: FANTA - Allergy/Home Medications Allergies/Adverse Reactions: Allergies Allergy/AdvReac Type Severity Reaction Status Date / Time dextromethorphan Allergy Nausea Verified 05/18/17 18:46 [From Mucinex DM] guaifenesin [From Mucinex DM] Allergy Nausea Verified 05/18/17 18:46 ibuprofen [From Motrin] Allergy rash/kidneys Verified 05/18/17 18:46 shut down orange oil Allergy hives Uncoded 05/18/17 18:46 diff breathing PMH/Surg Hx/FS Hx/Imm Hx Endocrine/Hematology History: Reports: Hx Diabetes Denies: Hx Thyroid Disease Cardiovascular History: Reports: Hx Hypertension Respiratory History: Reports: Hx Asthma, Hx Sleep Apnea - uses cpap Denies: Hx Chronic Obstructive Pulmonary Disease (COPD) GI History: Denies: Hx Ulcer History: Reports: Other Problems/Disorders - kidney "issues" when he takes ibuprofen Denies: Hx Renal Disease Musculoskeletal History: Reports: Hx Gout Psychiatric History: Reports: Hx Depression - Cancer History Cancer Type, Location and Year: none - Surgical History Surgery Procedure, Year, and Place: RIGHT WRIST FRACTURE, SCREWS PLACED. Hx Anesthesia Reactions: No - Immunization History Date of Tetanus Vaccine: UNKNOWN Immunizations Up to Date: Unable to Obtain/Confirm Infectious Disease History: No Infectious Disease History: Denies: Hx Hepatitis, Hx Human Immunodeficiency Virus (HIV), Traveled Outside the [place] in Last 30 Days - Family History Known Family History: Positive: Hypertension, Diabetes, Other - cancer - Social History Alcohol Use: None Hx Substance Use: No Substance Use Type: Reports: None Hx Tobacco Use: No Smoking Status (MU): Never Smoked Tobacco Review of Systems Cardiovascular: Other - Left side chest discomfort. Positive: Chest Pain. Negative: Palpitations Positive: Numbness - Left arm All Other Systems Reviewed And Are Negative: Yes Physical Exam - Summary Physical Exam Summary: Pt is morbidly obese,NAD. Triage Information Reviewed: Yes Vital Signs On Initial Exam: Initial Vitals Temp Pulse Resp BP Pulse Ox 35.7 C 96 19 149/78 94 05/18/17 18:44 05/18/17 18:44 05/18/17 18:44 05/18/17 18:44 05/18/17 18:44 Vital Signs Reviewed: Yes Appearance: Positive: Obese Skin: Positive: Warm, Dry. Negative: Cyanosis @ Head/Face: Positive: Normal Head/Face Inspection, TMJ Tenderness Eyes: Positive: EOMI, ISMA ENT: Positive: Normal ENT inspection Neck: Positive: Supple, Nontender, No Lymphadenopathy, Nuchal Rigidity Respiratory/Lung Sounds: Positive: Clear to Auscultation Cardiovascular: Positive: Normal, RRR, Pulses are Symmetrical in both Upper and Lower Extremities. Negative: Murmur Abdomen Description: Positive: Nontender, No Organomegaly, Soft Bowel Sounds: Positive: Present Neurological: Positive: Normal, Sensory/Motor Intact, CN Intact II-III. Negative: EOM Palsy, Facial Droop Diagnostics - Vital Signs Vital Signs Temp Pulse Resp BP Pulse Ox 05/18/17 20:00 87 120/68 94 05/18/17 19:30 88 121/67 93 05/18/17 19:02 90 15 92 05/18/17 19:01 115/73 05/18/17 18:44 35.7 C 96 19 149/78 94 - Laboratory Lab Results: Lab Results 05/18/17 05/18/17 05/18/17 Range/Units 18:57 18:57 18:57 WBC 7.2 (3.5-10.8) 10^3/ul RBC 5.11 (4.0-5.4) 10^6/ul Hgb 14.5 (14.0-18.0) g/dl Hct 43 (42-52) % MCV 85 (80-94) fL MCH 28 (27-31) pg MCHC 34 (31-36) g/dl RDW 16 H (10.5-15) % Plt Count 178 (150-450) 10^3/ul MPV 7.9 (7.4-10.4) um3 Neut % (Auto) 78.3 (38-83) % Lymph % (Auto) 13.0 L (25-47) % [place] % (Auto) 5.4 (0-7) % Eos % (Auto) 2.4 (0-6) % Baso % (Auto) 0.9 (0-2) % Absolute Neuts (auto) 5.6 (1.5-7.7) 10^3/ul Absolute Lymphs (auto) 0.9 L (1.0-4.8) 10^3/ul Absolute Monos (auto) 0.4 (0-0.8) 10^3/ul Absolute Eos (auto) 0.2 (0-0.6) 10^3/ul Absolute Basos (auto) 0.1 (0-0.2) 10^3/ul Absolute Nucleated RBC 0 10^3/ul Nucleated RBC % 0 INR (Anticoag Therapy) 0.95 (0.77-1.02) APTT 31.3 (26.0-36.3) seconds Sodium 132 L (133-145) mmol/L Potassium 4.4 (3.5-5.0) mmol/L Chloride 99 L (101-111) mmol/L Carbon Dioxide 23 (22-32) mmol/L Anion Gap 10 (2-11) mmol/L BUN 17 (6-24) mg/dL Creatinine 0.94 (0.67-1.17) mg/dL Est GFR ( Amer) 114.3 (>60) Est GFR (Non-Af Amer) 88.9 (>60) BUN/Creatinine Ratio 18.1 (8-20) Glucose 355 H (70-100) mg/dL Calcium 9.1 (8.6-10.3) mg/dL Total Bilirubin 0.40 (0.2-1.0) mg/dL AST 18 (13-39) U/L ALT 19 (7-52) U/L Alkaline Phosphatase 64 (34-104) U/L Troponin I 0.00 (<0.04) ng/mL Total Protein 6.3 L (6.4-8.9) g/dL Albumin 4.1 (3.2-5.2) g/dL Globulin 2.2 (2-4) g/dL Albumin/Globulin Ratio 1.9 (1-3) Result Diagrams: 05/18/17 18:57 05/18/17 18:57 Lab Statement: Any lab studies that have been ordered have been reviewed, and results considered in the medical decision making process. - EKG SR@ 91/m,Nl axis,Nl intervals,No ischemic cahanges, Cardiac Rate: NL EKG Rhythm: Sinus Rhythm ST Segment: Normal Ectopy: None EKG Comparison: No Significant Change Chest Pain Course/Dx - Course Course Of Treatment: Pt's symptoms are atypical for cardiac chest pain. EKG, labs and CXR are unremarkable. Pt feels better in the ED. Will be D/C home to F/U with PMD tomorrow and Stress test as out pt. Assessment/Plan: D/C home to F/U with PMD tomorrow and Stress test as out pt, - Chest Pain Differential Diagnosis/HQI/PQRI: Other: - Diagnoses Provider Diagnoses: Atypical chest pain Discharge - Sign-Out/Discharge Documenting (check all that apply): Discharge - Discharge Plan Condition: Stable Disposition: HOME Patient Education Materials: Chest Pain (DC) Referrals: Lise Davis MD [Primary Care Provider] - 1 Day Additional Instructions: I do highly recommend cardiac stress test MALA. - Billing Disposition and Condition Condition: STABLE Disposition: HOME
[2017-05-18 20:45] VITALS: BP 130/63
== END 2017-05-18 20:45 | disposition home or self-care (01) ==
LOC: ED 18:42
DX: R07.89 Other chest pain (principal); R20.0 Anesthesia of skin; E11.9 Type 2 diabetes mellitus without complications; Z79.84 Long term (current) use of oral hypoglycemic drugs; I10 Essential (primary) hypertension; J45.909 Unspecified asthma, uncomplicated; M10.9 Gout, unspecified; F32.9 Major depressive disorder, single episode, unspecified; Z88.6 Allergy status to analgesic agent; Z88.8 Allergy status to other drugs, medicaments and biological substances
CPT/HCPCS: 36415; 71045; 80053; 84484; 85025; 85610; 85730; 93005; 99283

== ENCOUNTER 2017-07-21 08:50 | Inpatient (IN) | payer MEDICARE ==
[2017-07-21] MEDS ORDERED: NS 0.9% 1000 ML* 1,000 ML IV ONE (09:18)
[2017-07-21] MEDS ORDERED: Morphine VIAL* 4 MG/ML VIAL (1 ml vial) IV ONE ×3 (09:21→10:58)
[2017-07-21] MEDS ORDERED: Metoclopramide IV* 5 MG/ML 2 ML VIAL IV ONE (09:21)
[2017-07-21 09:52] LABS: ABS Basophils 0 10^3/ul (0-0.2); ABS Eosinophils 0.1 10^3/ul (0-0.6); ABS Lymphocytes 0.5 10^3/ul (1.0-4.8); ABS Monocytes 0.6 10^3/ul (0-0.8); ABS Nucleated RBC 0 10^3/ul; Eosinophil % 0.9 % (0-6); Hematocrit 40 % (42-52); Hemoglobin 13.5 g/dl (14.0-18.0); Lymphocyte % 4.3 % (25-47); Mean Corpuscular HGB Conc 34 g/dl (31-36); Mean Corpuscular Hemoglobin 29 pg (27-31); Mean Corpuscular Volume 84 fL (80-94); Mean Platelet Volume 7.6 um3 (7.4-10.4); Nucleated Red Blood Cells % 0; Platelet Count 168 10^3/ul (150-450); Red Blood Count 4.75 10^6/ul (4.0-5.4); Red Cell Distribution Width 16 % (10.5-15); White Blood Count 11.1 10^3/ul (3.5-10.8)
[2017-07-21 10:02] LABS: INR 1.14 (0.77-1.02)
[2017-07-21 10:11] LABS: EGFR Non-African American 94.7 (>60)
--- NOTE | 2017-07-21 10:19 | RAD ---
HISTORY: Shortness of breath COMPARISONS: May 18, 2017 VIEWS: 4: Frontal dual-energy and lateral views of the chest. The right costophrenic angle is cut off. FINDINGS: CARDIOMEDIASTINAL SILHOUETTE: The cardiomediastinal silhouette is normal. RICH: The rich are normal. PLEURA: The left costophrenic angle is sharp. The right costophrenic angle is cut off. On the lateral views, the costophrenic angles are sharp. LUNG PARENCHYMA: The lungs are clear. ABDOMEN: The upper abdomen is clear. There is no subphrenic gas. BONES AND SOFT TISSUES: No bone or soft tissue abnormalities are noted. OTHER: None. IMPRESSION: NO ACTIVE CARDIOPULMONARY DISEASE.
[2017-07-21] MEDS ORDERED: Clindamycin 900 MG IVPREMIX(* 900 MG/50 ML SDV IV ONE (10:39)
[2017-07-21] MEDS ORDERED: Lidocaine 2% EPI 1:200000 MPF*10-20 ML VIAL ONE (10:46)
[2017-07-21] MEDS ORDERED: Acetaminophen TAB* 325 MG PO ONE (10:54)
[2017-07-21] MEDS ORDERED: Acetaminophen TAB* 325 MG ONE (10:58)
[2017-07-21] MEDS ORDERED: Dextrose 50% Syringe 50 ML* 25 GM/50 ML SYRINGE IV PUSH PRN (11:40)
[2017-07-21] MEDS ORDERED: Vancomycin(*) 2,000 MG in NS 0.9% 500 ML* 500 ML IVPB ONE (11:52)
[2017-07-21] MEDS ORDERED: NS 0.9% 1000 ML* 2,000 ML IV ONE (12:03)
[2017-07-21] MEDS ORDERED: Albuterol HFA INHALER* 8 gm MDI INH PRN (12:04)
[2017-07-21] MEDS ORDERED: Insulin LISPRO* 1 UNITS UNIT SUBCUT ONE (13:55)
[2017-07-21] MEDS: Acetaminophen TAB* 325 MG PO PRN (15:57)
[2017-07-21] MEDS ORDERED: Zosyn 3.375 gm X 1 dose, then dose per Pharmacy IVPB ONE ×2 (16:00)
--- NOTE | 2017-07-21 16:36 | HP ---
CC: Dr. Lise Davis * HISTORY AND PHYSICAL: DATE OF ADMISSION: 07/21/17 PRIMARY CARE PROVIDER: Dr. Lise Davis. ATTENDING PHYSICIAN: Dr. Sebastien Solo * (dictated by Belle Leo NP) . CHIEF COMPLAINT: Weakness and abscess under left arm. HISTORY OF PRESENT ILLNESS: Mr. Urbina is a 42-year-old male with past medical history significant for diabetes mellitus, hypertension, asthma, obstructive sleep apnea with CPAP, depression, gout, and super morbid obesity, who states that approximately 3 weeks ago he noticed development of what she thought could be an abscess under his left arm in the axillary area. He denies any fevers or chills at home, chest pain, nausea, vomiting, diarrhea. He states that for the last 2 to 3 weeks he has had shortness of breath with exertion. This is above his baseline shortness of breath. He denies any urinary symptoms. The patient has a history of having a furuncle on his posterior neck in 2017, at which time he was hospitalized and had this I and D' d in the operating room. The patient felt as though the abscess in his left axillary was getting larger and he was feeling weak, so his family encouraged him to come to the emergency room for further evaluation. While in the emergency room, the patient initially was afebrile but developed a temperature up to 101. He had a mild leukocytosis at 11.1. He is tachycardic with his heart rate in the 100s. His other labs were unremarkable. He had a negative chest x-ray and EKG showing sinus tach at rate of 108. No acute signs of ischemia. He had a D-dimer of less than 200, lactic acid of 2.1, troponin 0.00. He had an I and D by the emergency room provider and wound cultures were obtained and sent. Blood cultures were obtained while in the emergency room. He received 1 L of saline in addition to IV clindamycin, Reglan, morphine and Tylenol. The hospitalists were asked to evaluate the patient for admission. PAST MEDICAL HISTORY: 1. Diabetes mellitus. 2. Hypertension. 3. Asthma. 4. Obstructive sleep apnea, uses CPAP. 5. Depression. 6. Gout. 7. Super morbid obesity, BMI 64. PAST SURGICAL HISTORY: Status post right wrist ORIF. MEDICATIONS: Home medications include: 1. Remeron 15 mg oral at bedtime. 2. Trulicity 1.5 mg subcutaneous weekly. 3. Abilify 5 mg oral daily at bedtime. 4. Bupropion XL 450 mg oral every morning. 5. Allopurinol 200 mg oral twice daily. 6. Lantus 65 units subcutaneous every evening. 7. Glimepiride 4 mg oral twice daily. 8. Metformin 1000 mg oral twice daily. 9. Quinapril 20 mg oral daily. 10. Loratadine 1 tablet 10 mg oral daily. 11. Advair Diskus 500/50 one inhalation twice daily. 12. Albuterol 2 puffs inhalation every 4 hours as needed for shortness of breath or wheeze. ALLERGIES: MUCINEX DM, MOTRIN, and ORANGE OIL. FAMILY HISTORY: The patient's mother and maternal uncle have heart disease. His mother has prediabetes and maternal uncle with diabetes. Mother and maternal uncle have history of skin cancer. SOCIAL HISTORY: The patient denies tobacco, alcohol, or recreational drug use. The patient's or mother, Tracy Judd, will be his surrogate decision maker in the event he is unable to make decisions for himself. REVIEW OF SYSTEMS: I performed an 11-point review of systems, all the pertinent and negatives are mentioned in the history of present illness. Remaining of review of systems are negative. PHYSICAL EXAMINATION GENERAL APPEARANCE: The patient is alert, pleasant, appears to be in no acute distress. VITAL SIGNS: Temperature 97.5, heart rate 111, respiratory rate 16, O2 sat 99% on room air, blood pressure 169/89. HEENT: Normocephalic and atraumatic. Pupils are equal and reactive to light. Extraocular movements are intact. RESPIRATORY: There is no accessory muscle use. The lungs are clear to auscultation bilaterally. CARDIOVASCULAR: Regular rate and rhythm, tachycardic. S1 and S2 present. There are no murmurs, rubs, or gallops heard. ABDOMEN: Soft, large, nontender. There are bowel sounds present x4. EXTREMITIES: There is no lower extremity edema. DP and PT pulses are 2+ and symmetric. MUSCULOSKELETAL: There is no clubbing or cyanosis noted. The patient exhibits good strength in all extremities. NEUROLOGICAL: The patient is alert and oriented x4. Cranial nerves II through XII are grossly intact. PSYCHOLOGICAL: The patient is calm and cooperative. SKIN: The patient has an open incision to his left axilla from an I and D with bloody drainage and packing present. There continues to be an area of induration. The patient also has an abrasion to his left yates with a small amount of surrounding erythema that he has been applying triple antibiotic to at home. DIAGNOSTIC STUDIES/LABORATORY DATA: Sodium 131, potassium 4.5, chloride 98, CO2 23, BUN 11, creatinine 0.89, glucose 302. White blood cell count 11.1, hemoglobin 13.5, hematocrit 40, platelet count 168. D-dimer less than 200. Lactic acid 2.1. Troponin 0.00. EKG shows sinus tachycardia and rate of 108. There are no acute signs of ischemia. This EKG is similar to a previous EKG from 05/18/17. Chest x-ray from today. Radiologist's impression: No active cardiopulmonary disease. IMPRESSION: Mr. Urbina is a 42-year-old male with past medical history significant for diabetes mellitus, hypertension, asthma, obstructive sleep apnea , depression, gout, and super morbid obesity, who presents to the emergency room with complaints of shortness of breath and left axillary swelling. He will be admitted as an inpatient for sepsis secondary to cellulitis with abscess in the left axilla. ASSESSMENT/PLAN: 1. Cellulitis with abscess to the left axilla with associated sepsis. The patient received clindamycin in the emergency room but due to the presence of an abscess, I am going to change the antibiotic to vancomycin while we await wound culture results. A wound culture was obtained in the emergency room. He also has blood cultures collected. He is meeting sepsis criteria based on SIRS with fever, tachycardia and leukocytosis. He initially received 1 L of normal saline. Due to the patient's super morbid obesity and being approximately 190 kg, he should receive 5740 mL of fluid per the sepsis protocol, but I am going to give him a total of 3 L instead he will be continued on IV hydration after the bolus. He has mild lactic acidosis. We will recheck his lactic acid after he receives some more IV fluids. 2. Shortness of breath. No signs of an acute asthma exacerbation. He doesn't have an elevated d-dimer or troponin, I don't feel this represent a PE. I suspect his shortness of breath is secondary to his weight and body habitus. 3. Diabetes mellitus. The patient will be continued on his home Lantus and started on a lispro sliding scale and a consistent carbohydrate diet. I am going to hold his home Trulicity, glimepiride, and metformin. 4. Asthma. The patient has no signs of an acute asthma exacerbation at this time. He will be continued on his home Advair, albuterol as needed, and loratadine. 5. Hypertension. Currently hypertensive, I suspect secondary to not taking his medications today. We will continue him on his quinapril or hospital equivalent. 6. History of gout. Continued on his home allopurinol. 7. Depression. Continued on his home Abilify and bupropion. 8. Obstructive sleep apnea. The patient will continue to use his home CPAP. 9. Super morbid obesity. The patient has a BMI of approximately 64. The patient should be encouraged to go to [facility] at discharge to help with control of his diabetes and weight loss. 10. Fluids, electrolytes, and nutrition. He will be on a consistent carbohydrate diet. 11. Code status. Full code. 12. DVT prophylaxis. He is at low risk and will be encouraged to ambulate. 13. Disposition. Inpatient. TIME SPENT: Time for this admission was approximately 60 minutes, greater than half of that was spent with the patient discussing medications, past medical history, the events leading up to his arrival today, and performing a physical examination. The case has been reviewed with the attending, Dr. Solo, who agrees with the plan of care. Reviewed by NILAM BELTRÁN 07/22/17 1146 [id number]/[facility] #: [id number] TAVO
[2017-07-21 16:37] LABS: Urine Appearance Clear; Urine Blood Negative (Negative); Urine Color Yellow; Urine Ketones 1+ (Negative); Urine Protein 1+(30 mg/dL) (Negative); Urine Specific Gravity 1.023 (1.010-1.030); Urine Urobilinogen Negative (Negative)
[2017-07-21] MEDS: Insulin GLARGINE(*) 1 UNITS UNIT SUBCUT SCH (18:05)
[2017-07-21] MEDS: Insulin LISPRO* 1 UNITS UNIT SUBCUT SCH (18:05)
--- NOTE | 2017-07-21 18:42 | ED ---
Kelsey Luna Gabriel, scribed for Shawn Washington MD on 07/21/17 at 0910 . Skin Complaint - HPI Summary HPI Summary: This patient is a 42 year old M presenting to [facility] accompanied by his partner with a chief complaint of an abscess in the left axillary region that has been there for a couple of week. Along with this the patient has been SOB for the last couple weeks. The patient rates the pain 10/10 in severity. Patient reports fatigue and weakness that began around 3 days ago. Patient denies n/v, ABD pain, CP,and drainage from the abscess. No hx od DVT, PE, and CAD. Pt has asthma but states the SOB is not similar to his previous asthma symptoms. He has not had any breathing treatments today. - History of Current Complaint Chief Complaint: EDShortnessOfBreath Time Seen by Provider: 07/21/17 09:00 Stated Complaint: ABSCESS LT ARMPIT Hx Obtained From: Patient Onset/Duration: Still Present Skin Exposure Onset/Duration: Weeks Ago Timing: Constant Onset Severity: Moderate Current Severity: Severe Pain Intensity: 10 Pain Scale Used: 0-10 Numeric Skin Location: Other: - left axilla Associated Signs & Symptoms: Negative - n/v, ABD pain, and drainage - Additional Pertinent History Primary Care Physician: FANTA - Allergy/Home Medications Allergies/Adverse Reactions: Allergies Allergy/AdvReac Type Severity Reaction Status Date / Time dextromethorphan Allergy Nausea Verified 07/21/17 08:54 [From Mucinex DM] guaifenesin [From Mucinex DM] Allergy Nausea Verified 07/21/17 08:54 ibuprofen [From Motrin] Allergy rash/kidneys Verified 07/21/17 08:54 shut down orange oil Allergy hives Uncoded 07/21/17 08:54 diff breathing Home Medications: Home Medications ARIPiprazole TAB* [Abilify TAB*] 5 mg PO BEDTIME 07/21/17 [History Confirmed ] Allopurinol TAB* [Zyloprim 100 MG TAB*] 200 mg PO BID 07/21/17 [History Confirmed 07/21/17] BuPROPion XL* [Bupropion XL*] 450 mg PO QAM 07/21/17 [History Confirmed 07/21/17 ] Dulaglutide (NF) [Trulicity (NF)] 1.5 mg SUBCUT WEEKLY 07/21/17 [History Confirmed 07/21/17] Glimepiride (NF) 4 mg PO BID 07/21/17 [History Confirmed 07/21/17] Insulin GLARGINE(*) [Lantus(*)] 65 units SUBCUT QPM 07/21/17 [History Confirmed 07/21/17] Mirtazapine TAB* [Remeron TAB*] 15 mg PO BEDTIME 07/21/17 [History Confirmed ] Quinapril (NF) [Accupril (NF)] 20 mg PO DAILY 07/21/17 [History Confirmed ] PMH/Surg Hx/FS Hx/Imm Hx Endocrine/Hematology History: Reports: Hx Diabetes Denies: Hx Thyroid Disease Cardiovascular History: Reports: Hx Hypertension Respiratory History: Reports: Hx Asthma, Hx Sleep Apnea - uses cpap Denies: Hx Chronic Obstructive Pulmonary Disease (COPD) GI History: Denies: Hx Ulcer History: Reports: Other Problems/Disorders - kidney "issues" when he takes ibuprofen Denies: Hx Renal Disease Musculoskeletal History: Reports: Hx Gout Psychiatric History: Reports: Hx Depression - Cancer History Cancer Type, Location and Year: none - Surgical History Surgery Procedure, Year, and Place: RIGHT WRIST FRACTURE, SCREWS PLACED. Hx Anesthesia Reactions: No - Immunization History Date of Tetanus Vaccine: UNKNOWN Infectious Disease History: No Infectious Disease History: Denies: Hx Hepatitis, Hx Human Immunodeficiency Virus (HIV), Traveled Outside the [place] in Last 30 Days - Family History Known Family History: Positive: Hypertension, Diabetes, Other - cancer - Social History Alcohol Use: None Hx Substance Use: No Substance Use Type: Reports: None Hx Tobacco Use: No Smoking Status (MU): Never Smoked Tobacco Review of Systems Positive: Fatigue Negative: Chest Pain Positive: Shortness Of Breath Negative: Abdominal Pain, Vomiting, Nausea Positive: Other - abscess Positive: Weakness All Other Systems Reviewed And Are Negative: Yes Physical Exam - Summary Physical Exam Summary: GENERAL: Patient is a well developed and obese M who is lying comfortable in the stretcher. Patient is not in respiratory distress. Pt is mildly ill appearing. HEAD AND FACE: Normocephalic EYES: PERRLA, EOMI x 2. EARS: Hearing grossly intact. MOUTH: Oropharynx within normal limits. NECK: Supple, trachea is midline, no adenopathy, no JVD, no carotid bruit. CHEST: Symmetric, no tenderness at palpation LUNGS: Clear to auscultation bilaterally. No wheezing or crackles. CVS: Regular rate and rhythm, S1 and S2 present, no murmurs or gallops appreciated. ABDOMEN: Soft, non-tender. Bowel sounds are normal. No abdominal abnormal pulsations. EXTREMITIES: Full ROM in all major joints, no edema, no cyanosis or clubbing. NEURO: Alert and oriented x 3. No acute neurological deficits. Speech is normal and follows commands. SKIN: there is a large area of induration under the left axilla, there is no fluctuance appreciated with palpation Bed US reveals there is a pocket of fluid. Extensive surrounding cellulitis Triage Information Reviewed: Yes Vital Signs On Initial Exam: Initial Vitals Temp Pulse Resp BP Pulse Ox 97.5 F 111 16 169/87 99 07/21/17 08:52 07/21/17 08:52 07/21/17 08:52 07/21/17 08:52 07/21/17 08:52 Vital Signs Reviewed: Yes Procedures - Incision and Drainage Site: Left axilla Anesthesia: Lidocaine Instrument(s): Scalpel Packing: Gauze Diagnostics - Vital Signs Vital Signs Temp Pulse Resp BP Pulse Ox 07/21/17 08:52 97.5 F 111 16 169/87 99 - Laboratory Lab Results: Lab Results 07/21/17 07/21/17 07/21/17 Range/Units 09:37 09:37 09:37 WBC 11.1 H (3.5-10.8) 10^3/ul RBC 4.75 (4.0-5.4) 10^6/ul Hgb 13.5 L (14.0-18.0) g/dl Hct 40 L (42-52) % MCV 84 (80-94) fL MCH 29 (27-31) pg MCHC 34 (31-36) g/dl RDW 16 H (10.5-15) % Plt Count 168 (150-450) 10^3/ul MPV 7.6 (7.4-10.4) um3 Neut % (Auto) 89.5 H (38-83) % Lymph % (Auto) 4.3 L (25-47) % Dickenson % (Auto) 5.1 (0-7) % Eos % (Auto) 0.9 (0-6) % Baso % (Auto) 0.2 (0-2) % Absolute Neuts (auto) 10.0 H (1.5-7.7) 10^3/ul Absolute Lymphs (auto) 0.5 L (1.0-4.8) 10^3/ul Absolute Monos (auto) 0.6 (0-0.8) 10^3/ul Absolute Eos (auto) 0.1 (0-0.6) 10^3/ul Absolute Basos (auto) 0 (0-0.2) 10^3/ul Absolute Nucleated RBC 0 10^3/ul Nucleated RBC % 0 INR (Anticoag Therapy) (0.77-1.02) APTT (26.0-36.3) seconds D-Dimer, Quantitative (Less Than 230) ng/mL Sodium 131 L (139-145) mmol/L Potassium 4.5 (3.5-5.0) mmol/L Chloride 98 L (101-111) mmol/L Carbon Dioxide 23 (22-32) mmol/L Anion Gap 10 (2-11) mmol/L BUN 11 (6-24) mg/dL Creatinine 0.89 (0.67-1.17) mg/dL Est GFR ( Amer) 121.8 (>60) Est GFR (Non-Af Amer) 94.7 (>60) BUN/Creatinine Ratio 12.4 (8-20) Glucose 302 H (70-100) mg/dL Lactic Acid 2.1 H* (0.5-2.0) mmol/L Calcium 9.0 (8.6-10.3) mg/dL Total Bilirubin 0.80 (0.2-1.0) mg/dL AST 15 (13-39) U/L ALT 21 (7-52) U/L Alkaline Phosphatase 48 (34-104) U/L CK-MB (CK-2) 0.9 (0.6-6.3) ng/mL Troponin I 0.00 (<0.04) ng/mL B-Natriuretic Peptide ( - 100) pg/mL Total Protein 6.6 (6.4-8.9) g/dL Albumin 3.7 (3.2-5.2) g/dL Globulin 2.9 (2-4) g/dL Albumin/Globulin Ratio 1.3 (1-3) TSH 1.61 (0.34-5.60) mcIU/mL 07/21/17 07/21/17 Range/Units 09:37 09:37 WBC (3.5-10.8) 10^3/ul RBC (4.0-5.4) 10^6/ul Hgb (14.0-18.0) g/dl Hct (42-52) % MCV (80-94) fL MCH (27-31) pg MCHC (31-36) g/dl RDW (10.5-15) % Plt Count (150-450) 10^3/ul MPV (7.4-10.4) um3 Neut % (Auto) (38-83) % Lymph % (Auto) (25-47) % Dickenson % (Auto) (0-7) % Eos % (Auto) (0-6) % Baso % (Auto) (0-2) % Absolute Neuts (auto) (1.5-7.7) 10^3/ul Absolute Lymphs (auto) (1.0-4.8) 10^3/ul Absolute Monos (auto) (0-0.8) 10^3/ul Absolute Eos (auto) (0-0.6) 10^3/ul Absolute Basos (auto) (0-0.2) 10^3/ul Absolute Nucleated RBC 10^3/ul Nucleated RBC % INR (Anticoag Therapy) 1.14 H (0.77-1.02) APTT 31.0 (26.0-36.3) seconds D-Dimer, Quantitative < 200 (Less Than 230) ng/mL Sodium (139-145) mmol/L Potassium (3.5-5.0) mmol/L Chloride (101-111) mmol/L Carbon Dioxide (22-32) mmol/L Anion Gap (2-11) mmol/L BUN (6-24) mg/dL Creatinine (0.67-1.17) mg/dL Est GFR ( Amer) (>60) Est GFR (Non-Af Amer) (>60) BUN/Creatinine Ratio (8-20) Glucose (70-100) mg/dL Lactic Acid (0.5-2.0) mmol/L Calcium (8.6-10.3) mg/dL Total Bilirubin (0.2-1.0) mg/dL AST (13-39) U/L ALT (7-52) U/L Alkaline Phosphatase (34-104) U/L CK-MB (CK-2) (0.6-6.3) ng/mL Troponin I (<0.04) ng/mL B-Natriuretic Peptide 17 ( - 100) pg/mL Total Protein (6.4-8.9) g/dL Albumin (3.2-5.2) g/dL Globulin (2-4) g/dL Albumin/Globulin Ratio (1-3) TSH (0.34-5.60) mcIU/mL Result Diagrams: 07/21/17 09:37 07/21/17 09:37 Lab Statement: Any lab studies that have been ordered have been reviewed, and results considered in the medical decision making process. - Radiology CXR Radiology Interpretation Completed By: Radiologist - NO ACTIVE CARDIOPULMONARY DISEASE. ED physician has reviewed this radiology report. - EKG 0901 Cardiac Rate: Tachycardia EKG Rhythm: Sinus Tachycardia - at 108 BPM EKG Interpretation: No ischemic changes Re-Evaluation - Re-Evaluation First Eval Re-Evaluation Time: 10:53 Change: Improved Comment: The patient is febrile and will be given Tylenol. He reports that the morphine has resolved much of the pain Course/Dx - Course Assessment/Plan: This patient is a 42 year old M presenting to [facility] accompanied by his partner with a chief complaint of an abscess in the left axillary region that has been there for a couple of week. Along with this the patient has been SOB for the last couple weeks. The patient rates the pain 10/ 10 in severity. Patient reports fatigue and weakness that began around 3 days ago. Patient denies n/v, ABD pain, and drainage from the abscess. No hx od DVT , PE, and CAD. Pt has asthma but states the SOB is not similar to his previous asthma symptoms. An EKG reveals sinus tachy 108. No ischemic changes. CXR reveals, per radiologist, NO ACTIVE CARDIOPULMONARY DISEASE. ED physician has reviewed this radiology report. Test results with no significant abnormalities except for a lactic of 2.1 and glucose of 302. While in the ED patientt became febrile. In the ED course the patient was given tylenol, Clindamycin, lido, morphine, and reglan. We discussed patient care with Dr. oSlo and they accept the patient for admission. Patient will be admitted for sepsis 2/2 abscess/ cellulitis. The patient is agreeable with this plan. - Diagnoses Provider Diagnoses: Sepsis, Abscess - Physician Notifications Discussed Care Of Patient With: Sebastien Solo Time Discussed With Above Provider: 11:18 Instructed by Provider To: Admit As Inpatient Discharge - Sign-Out/Discharge Documenting (check all that apply): Discharge/Admit/Transfer - Discharge Plan Condition: Fair Disposition: ADMITTED TO [facility] - Billing Disposition and Condition Condition: FAIR Disposition: [facility] [place] The documentation as recorded by the Kelsey colon Gabriel accurately reflects the service I personally performed and the decisions made by , Shawn Washington MD.
[2017-07-21] MEDS ORDERED: Vancomycin(*) 1,000 MG in NS 0.9% 250 ML* 250 ML IVPB SCH (20:00)
[2017-07-21] MEDS: Mometasone/Formoter 200/5 MDI INH SCH (20:14)
[2017-07-21] MEDS: NS 0.9% 1000 ML* 1,000 ML IV SCH (20:25)
[2017-07-21] MEDS: Mirtazapine TAB* 15 MG PO SCH (20:26)
[2017-07-21] MEDS: ARIPiprazole TAB* 5 MG PO SCH (20:26)
[2017-07-21] MEDS: Allopurinol TAB* 100 MG PO SCH (20:26)
[2017-07-22] MEDS: Acetaminophen TAB* 325 MG PO PRN (05:31)
[2017-07-22] MEDS: NS 0.9% 1000 ML* 1,000 ML IV SCH ×2 (05:34→14:22)
[2017-07-22] MEDS ORDERED: HYDROcodone/ACETAMIN 5-325 MG* 1 TAB PO PRN (05:38)
[2017-07-22 05:56] LABS: ABS Basophils 0.1 10^3/ul (0-0.2); ABS Eosinophils 0.2 10^3/ul (0-0.6); ABS Lymphocytes 0.6 10^3/ul (1.0-4.8); ABS Monocytes 0.5 10^3/ul (0-0.8); ABS Neutrophils 7.3 10^3/ul (1.5-7.7); ABS Nucleated RBC 0 10^3/ul; Eosinophil % 1.9 % (0-6); Hematocrit 36 % (42-52); Hemoglobin 12.1 g/dl (14.0-18.0); Lymphocyte % 6.8 % (25-47); Mean Corpuscular HGB Conc 34 g/dl (31-36); Mean Corpuscular Hemoglobin 29 pg (27-31); Mean Corpuscular Volume 84 fL (80-94); Mean Platelet Volume 7.5 um3 (7.4-10.4); Nucleated Red Blood Cells % 0.1; Platelet Count 161 10^3/ul (150-450); Red Blood Count 4.26 10^6/ul (4.0-5.4); Red Cell Distribution Width 16 % (10.5-15); White Blood Count 8.7 10^3/ul (3.5-10.8)
[2017-07-22 06:22] LABS: EGFR Non-African American 115.3 (>60)
[2017-07-22] MEDS: Mometasone/Formoter 200/5 MDI INH SCH ×2 (08:45→20:39)
[2017-07-22] MEDS: Insulin LISPRO* 1 UNITS UNIT SUBCUT SCH ×3 (09:04→17:54)
[2017-07-22] MEDS: Allopurinol TAB* 100 MG PO SCH ×2 (09:06→21:04)
[2017-07-22] MEDS: Lisinopril TAB* 10 MG PO SCH (09:06)
[2017-07-22] MEDS: Cetirizine* 10 MG TAB PO SCH (09:06)
[2017-07-22] MEDS: BuPROPion XL* 150 MG TAB.XL PO SCH (09:06)
--- NOTE | 2017-07-22 09:12 | PN ---
Subjective Date of Service: 07/22/17 Interval History: Mr. Reddy reports feeling better today. Still has occasional pain in left axilla, but denies bleeding, discharge, fever or chills. He had an I&D of a left axillary abscess last night in ED. Initial cultures showing a staph infection, negative for MRSA. Has had similar "infections" in the past in the axilla and posterior neck. No chest pain or SOB. Otherwise, he has no complaints today. Family History: Unchanged from Admission Social History: Unchanged from Admission Past Medical History: Unchanged from Admission Objective Active Medications: Acetaminophen (Tylenol Tab*) 650 mg PO Q4H PRN PRN Reason: FEVER/PAIN Last Admin: 07/22/17 05:31 Dose: 650 mg Hydrocodone Bitart/Acetaminophen (Howland 5-325 Tab*) 1 tab PO Q4H PRN PRN Reason: PAIN Albuterol (Ventolin Hfa Inhaler*) 2 puff INH Q4H PRN PRN Reason: SOB/WHEEZING Allopurinol (Zyloprim Tab*) 200 mg PO BID [facility], [facility] Last Admin: 07/22/17 09:06 Dose: 200 mg Aripiprazole (Abilify Tab*) 5 mg PO BEDTIME [facility], [facility] Last Admin: 07/21/17 20:26 Dose: 5 mg Bupropion HCl (Wellbutrin Xl *) 450 mg PO QAM [facility], [facility] Last Admin: 07/22/17 09:06 Dose: 450 mg Cetirizine HCl (Zyrtec*) 10 mg PO DAILY [facility], [facility] Last Admin: 07/22/17 09:06 Dose: 10 mg Dextrose (D50w Syringe 50 Ml*) 12.5 gm IV PUSH .FOR FS < 60 - SS PRN PRN Reason: FS < 60 Sodium Chloride (Ns 0.9% 1000 Ml*) 1,000 mls @ 100 mls/hr IV PER RATE [facility], [facility]1983 Last Admin: 07/22/17 05:34 Dose: 100 mls/hr Piperacillin Sod/Tazobactam (Sod 3.375 gm/ Sodium Chloride) 100 mls @ 25 mls/ hr IVPB Q8H [facility], [facility]1983 Insulin Glargine (Lantus(*)) 65 units SUBCUT QPM [facility] Last Admin: 07/21/17 18:05 Dose: 65 unit Insulin Human Lispro (Humalog*) 0 - 15 units SUBCUT AC [facility], [facility]1983 PRN Reason: Protocol Last Admin: 07/22/17 09:04 Dose: 9 units Lisinopril (Prinivil Tab*) 20 mg PO DAILY HARRY PRN Reason: Protocol Last Admin: 07/22/17 09:06 Dose: 20 mg Mirtazapine (Remeron Tab*) 15 mg PO BEDTIME [facility] Last Admin: 07/21/17 20:26 Dose: 15 mg Mometasone Furoate/Formoterol Fumar (Dulera 200/5 Mdi*) 2 puff INH BID [facility] Last Admin: 07/22/17 08:45 Dose: 2 puff Vital Signs - 8 hr 07/22/17 07/22/17 07/22/17 03:35 07:30 08:00 Temperature 98.3 F 97.8 F Pulse Rate 87 81 Respiratory 18 22 26 Rate Blood Pressure 141/74 142/78 (mmHg) O2 Sat by Pulse 96 95 Oximetry 07/22/17 08:46 Temperature Pulse Rate 81 Respiratory Rate Blood Pressure (mmHg) O2 Sat by Pulse 92 Oximetry Oxygen Devices in Use Now: None Appearance: Morbidly obese male, laying in bed, appears comfortable and in NAD. Eyes: No Scleral Icterus, PERRLA Ears/Nose/Mouth/Throat: Clear Oropharnyx, Mucous Membranes Moist Neck: NL Appearance and Movements; NL JVP, Trachea Midline Respiratory: Symmetrical Chest Expansion and Respiratory Effort, Clear to Auscultation Cardiovascular: NL Sounds; No Murmurs; No JVD, RRR Abdominal: NL Sounds; No Tenderness; No Distention Lymphatic: No Axillary Adenopathy Extremities: No Edema, No Clubbing, Cyanosis, - - Left axilla with a small I&D site, approx. 1 cm with packing intact. Moderate sorrounding erythema and induration noted. No active bleeding or discharge. Packing removed and wound probed to approx. 3 cm depth, no discharge noted. A fresh 1/2 inch plain packing gauze inserted and wound covered with 4x4 dressing. Skin: No Rash or Ulcers Neurological: Alert and Oriented x 3, NL Sensation, NL Muscle Strength and Tone Nutrition: Taking PO's Result Diagrams: 07/22/17 05:46 07/22/17 05:46 Additional Lab and Data: Lab Results 07/21/17 07/21/17 07/21/17 Range/Units 09:37 09:37 09:37 WBC 11.1 H (3.5-10.8) 10^3/ul RBC 4.75 (4.0-5.4) 10^6/ul Hgb 13.5 L (14.0-18.0) g/dl Hct 40 L (42-52) % MCV 84 (80-94) fL MCH 29 (27-31) pg MCHC 34 (31-36) g/dl RDW 16 H (10.5-15) % Plt Count 168 (150-450) 10^3/ul MPV 7.6 (7.4-10.4) um3 Neut % (Auto) 89.5 H (38-83) % Lymph % (Auto) 4.3 L (25-47) % Appling % (Auto) 5.1 (0-7) % Eos % (Auto) 0.9 (0-6) % Baso % (Auto) 0.2 (0-2) % Absolute Neuts (auto) 10.0 H (1.5-7.7) 10^3/ul Absolute Lymphs (auto) 0.5 L (1.0-4.8) 10^3/ul Absolute Monos (auto) 0.6 (0-0.8) 10^3/ul Absolute Eos (auto) 0.1 (0-0.6) 10^3/ul Absolute Basos (auto) 0 (0-0.2) 10^3/ul Absolute Nucleated RBC 0 10^3/ul Nucleated RBC % 0 INR (Anticoag Therapy) (0.77-1.02) APTT (26.0-36.3) seconds D-Dimer, Quantitative (Less Than 230) ng/mL Sodium 131 L (139-145) mmol/L Potassium 4.5 (3.5-5.0) mmol/L Chloride 98 L (101-111) mmol/L Carbon Dioxide 23 (22-32) mmol/L Anion Gap 10 (2-11) mmol/L BUN 11 (6-24) mg/dL Creatinine 0.89 (0.67-1.17) mg/dL Est GFR ( Amer) 121.8 (>60) Est GFR (Non-Af Amer) 94.7 (>60) BUN/Creatinine Ratio 12.4 (8-20) Glucose 302 H (70-100) mg/dL Lactic Acid 2.1 H* (0.5-2.0) mmol/L Calcium 9.0 (8.6-10.3) mg/dL Total Bilirubin 0.80 (0.2-1.0) mg/dL AST 15 (13-39) U/L ALT 21 (7-52) U/L Alkaline Phosphatase 48 (34-104) U/L CK-MB (CK-2) 0.9 (0.6-6.3) ng/mL Troponin I 0.00 (<0.04) ng/mL B-Natriuretic Peptide ( - 100) pg/mL Total Protein 6.6 (6.4-8.9) g/dL Albumin 3.7 (3.2-5.2) g/dL Globulin 2.9 (2-4) g/dL Albumin/Globulin Ratio 1.3 (1-3) TSH 1.61 (0.34-5.60) mcIU/mL 07/21/17 07/21/17 Range/Units 09:37 09:37 WBC (3.5-10.8) 10^3/ul RBC (4.0-5.4) 10^6/ul Hgb (14.0-18.0) g/dl Hct (42-52) % MCV (80-94) fL MCH (27-31) pg MCHC (31-36) g/dl RDW (10.5-15) % Plt Count (150-450) 10^3/ul MPV (7.4-10.4) um3 Neut % (Auto) (38-83) % Lymph % (Auto) (25-47) % Appling % (Auto) (0-7) % Eos % (Auto) (0-6) % Baso % (Auto) (0-2) % Absolute Neuts (auto) (1.5-7.7) 10^3/ul Absolute Lymphs (auto) (1.0-4.8) 10^3/ul Absolute Monos (auto) (0-0.8) 10^3/ul Absolute Eos (auto) (0-0.6) 10^3/ul Absolute Basos (auto) (0-0.2) 10^3/ul Absolute Nucleated RBC 10^3/ul Nucleated RBC % INR (Anticoag Therapy) 1.14 H (0.77-1.02) APTT 31.0 (26.0-36.3) seconds D-Dimer, Quantitative < 200 (Less Than 230) ng/mL Sodium (139-145) mmol/L Potassium (3.5-5.0) mmol/L Chloride (101-111) mmol/L Carbon Dioxide (22-32) mmol/L Anion Gap (2-11) mmol/L BUN (6-24) mg/dL Creatinine (0.67-1.17) mg/dL Est GFR ( Amer) (>60) Est GFR (Non-Af Amer) (>60) BUN/Creatinine Ratio (8-20) Glucose (70-100) mg/dL Lactic Acid (0.5-2.0) mmol/L Calcium (8.6-10.3) mg/dL Total Bilirubin (0.2-1.0) mg/dL AST (13-39) U/L ALT (7-52) U/L Alkaline Phosphatase (34-104) U/L CK-MB (CK-2) (0.6-6.3) ng/mL Troponin I (<0.04) ng/mL B-Natriuretic Peptide 17 ( - 100) pg/mL Total Protein (6.4-8.9) g/dL Albumin (3.2-5.2) g/dL Globulin (2-4) g/dL Albumin/Globulin Ratio (1-3) TSH (0.34-5.60) mcIU/mL Microbiology and Other Data: Microbiology 07/21/17 12:38 Skin and Soft Tissue MRSA/MSSA (PCR - Final Axilla Left Mrsa Negative S.aureus Positive Gram Stain - Final Diagnostic Imaging: Patient Name: IDALMIS REDDY Medical Record#: [id number] Ordering Physician: Shawn Washington MD Acct.#: [id number] : 1975 Age: 42 Sex: M Location: EMERGENCY DEPARTMENT Exam Date: 07/21/17917 ADM Status: REG ER Order Information: CHEST PA & LAT 2 VWS Accession Number: [id number] CPT: 42847 HISTORY: Shortness of breath COMPARISONS: May 18, 2017 VIEWS: 4: Frontal dual-energy and lateral views of the chest. The right costophrenic angle is cut off. FINDINGS: CARDIOMEDIASTINAL SILHOUETTE: The cardiomediastinal silhouette is normal. ZEHRA: The zehra are normal. PLEURA: The left costophrenic angle is sharp. The right costophrenic angle is cut off. On the lateral views, the costophrenic angles are sharp. LUNG PARENCHYMA: The lungs are clear. ABDOMEN: The upper abdomen is clear. There is no subphrenic gas. BONES AND SOFT TISSUES: No bone or soft tissue abnormalities are noted. OTHER: None. IMPRESSION: NO ACTIVE CARDIOPULMONARY DISEASE. EKG Data: EKG INTERPRETATION ECG Report Patient Name IDALMIS REDDY Birthdate 1975 Sex M Order Number [id number] Date of ECG 07/21/2017 09:01:26 Interpretation Sinus tachycardia.rate> 99 - OTHERWISE NORMAL ECG - ECG NEEDS E-SIGNING Assess/Plan/Problems-Billing Assessment: A morbidly obese 42 y/o male with PMHx insulin dependent DM, HTN, asthma and sleep apnea, who presented to the ED with c/o SOB and left axilary swelling and redness, who also met sepsis criteria with tachycardia, fever and leukocytosis; admitted for left axilla abscess and cellulitis. - Patient Problems (1) Sepsis Current Visit: Yes Status: Acute Priority: High Comment: - Patient met sepsis criteria, recieved appropriate IVF in ED - Had a dose of Clindamycin, Zosyn and Vancomycin in ED - Currently on Zosyn, awaiting sensitivity report to narrow down Abx coverage - Wound culture showed staph, negative for MRSA, sensitivity pending - Clinically improving - Afebrile overnight, tachycardia and leukocytosis resolved. (2) cellulitis/abscess Current Visit: No Status: Acute Comment: - Continue IV antibiotics - Wound packing changed today, continue wound care (3) Diabetes Current Visit: No Status: Acute Comment: - Uncontrolled - Glucose 200-250's - IDDM type 2, doubt his compliance with home meds - FSBG ACHS with lispro SS and Lantus to 65 units bedtime. - Hold home oral medications - HgA1c last checked in 03/2017 was 8.8 (4) HTN (hypertension) Current Visit: No Status: Acute Comment: - Controlled - Continue Lisnopril (5) Asthma Current Visit: No Status: Acute Comment: - Controlled. - Continue Dulera BID and albuterol prn (6) Morbid obesity with BMI of 60.0-69.9, adult Current Visit: No Status: Chronic Comment: - Supportive care - may benefit from bariatric consultation, will discuss with patient first (7) Sleep apnea Current Visit: No Status: Chronic Comment: - Continue home C-PAP (8) DVT prophylaxis Current Visit: No Status: Acute Comment: - subQ Heparin (9) Full code status Current Visit: No Status: Acute Status and Disposition: Inpatient for IV antibiotics. Anticipate discharge when medically stable.
[2017-07-22] MEDS ORDERED: Vancomycin Trough Check NOTE FOLLOW UP ONE (13:30)
[2017-07-22] MEDS: Insulin GLARGINE(*) 1 UNITS UNIT SUBCUT SCH (17:53)
[2017-07-22] MEDS: ARIPiprazole TAB* 5 MG PO SCH (21:04)
[2017-07-22] MEDS: Mirtazapine TAB* 15 MG PO SCH (21:04)
[2017-07-22] MEDS: ZOSYN 3.375 GM Q8H per EXTENDED INFUSION IVPB SCH ×2 (21:05)
[2017-07-22] MEDS: Heparin VIAL(*) 5000 UNITS/ML VIAL (FIVE THOUSAND) SUBCUT SCH (21:05)
[2017-07-23] MEDS: ZOSYN 3.375 GM Q8H per EXTENDED INFUSION IVPB SCH ×4 (04:25→12:07)
[2017-07-23] MEDS: NS 0.9% 1000 ML* 1,000 ML IV SCH (04:25)
[2017-07-23] MEDS: Heparin VIAL(*) 5000 UNITS/ML VIAL (FIVE THOUSAND) SUBCUT SCH ×3 (05:18→23:27)
[2017-07-23] MEDS: Mometasone/Formoter 200/5 MDI INH SCH ×2 (08:00→20:46)
[2017-07-23] MEDS: BuPROPion XL* 150 MG TAB.XL PO SCH (08:45)
[2017-07-23] MEDS: Cetirizine* 10 MG TAB PO SCH (08:45)
[2017-07-23] MEDS: Allopurinol TAB* 100 MG PO SCH ×2 (08:45→19:49)
[2017-07-23] MEDS: Lisinopril TAB* 10 MG PO SCH (08:45)
[2017-07-23] MEDS: Insulin LISPRO* 1 UNITS UNIT SUBCUT SCH ×3 (08:46→17:09)
--- NOTE | 2017-07-23 08:47 | PN ---
Subjective Date of Service: 07/23/17 Interval History: Patient reports he is feeling better but he continues to have generalized weakness. Denies fever or chills. No N/V/D. No constipation. Reports pain in left auxiliary is improving. Family History: Unchanged from Admission Social History: Unchanged from Admission Past Medical History: Unchanged from Admission Objective Active Medications: Acetaminophen (Tylenol Tab*) 650 mg PO Q4H PRN PRN Reason: FEVER/PAIN Last Admin: 07/22/17 05:31 Dose: 650 mg Hydrocodone Bitart/Acetaminophen ([place] 5-325 Tab*) 1 tab PO Q4H PRN PRN Reason: PAIN Albuterol (Ventolin Hfa Inhaler*) 2 puff INH Q4H PRN PRN Reason: SOB/WHEEZING Allopurinol (Zyloprim Tab*) 200 mg PO BID [facility] Last Admin: 07/22/17 21:04 Dose: 200 mg Aripiprazole (Abilify Tab*) 5 mg PO BEDTIME [facility] Last Admin: 07/22/17 21:04 Dose: 5 mg Bupropion HCl (Wellbutrin Xl *) 450 mg PO QAM [facility] Last Admin: 07/22/17 09:06 Dose: 450 mg Cetirizine HCl (Zyrtec*) 10 mg PO DAILY [facility] Last Admin: 07/22/17 09:06 Dose: 10 mg Dextrose (D50w Syringe 50 Ml*) 12.5 gm IV PUSH .FOR FS < 60 - SS PRN PRN Reason: FS < 60 Heparin Sodium (Porcine) (Heparin Vial(*)) 5,000 units SUBCUT Q8HR [facility] Last Admin: 07/23/17 05:18 Dose: 5,000 units Sodium Chloride (Ns 0.9% 1000 Ml*) 1,000 mls @ 100 mls/hr IV PER RATE [facility] Last Admin: 07/23/17 04:25 Dose: 100 mls/hr Piperacillin Sod/Tazobactam (Sod 3.375 gm/ Sodium Chloride) 100 mls @ 25 mls/ hr IVPB Q8H [facility] Last Admin: 07/23/17 04:25 Dose: 25 mls/hr Insulin Glargine (Lantus(*)) 65 units SUBCUT QPM [facility] Last Admin: 07/22/17 17:53 Dose: 65 unit Insulin Human Lispro (Humalog*) 0 - 15 units SUBCUT AC [facility] PRN Reason: Protocol Last Admin: 07/22/17 17:54 Dose: 6 units Lisinopril (Prinivil Tab*) 20 mg PO DAILY [facility] PRN Reason: Protocol Last Admin: 07/22/17 09:06 Dose: 20 mg Mirtazapine (Remeron Tab*) 15 mg PO BEDTIME [facility] Last Admin: 07/22/17 21:04 Dose: 15 mg Mometasone Furoate/Formoterol Fumar (Dulera 200/5 Mdi*) 2 puff INH BID [facility] Last Admin: 07/23/17 08:00 Dose: 2 puff Vital Signs - 8 hr 07/23/17 07/23/17 07/23/17 04:11 07:24 08:00 Temperature 98.1 F 99.4 F Pulse Rate 78 81 76 Respiratory 16 17 16 Rate Blood Pressure 147/90 130/73 (mmHg) O2 Sat by Pulse 100 97 96 Oximetry Oxygen Devices in Use Now: None Appearance: morbidly obese male sitting on the side of the bed in NAD, A+O x3 Eyes: No Scleral Icterus, PERRLA Ears/Nose/Mouth/Throat: NL Teeth, Lips, Gums, Mucous Membranes Moist Respiratory: Symmetrical Chest Expansion and Respiratory Effort, Clear to Auscultation Cardiovascular: NL Sounds; No Murmurs; No JVD, RRR, No Edema Abdominal: - - obese, unable to ausculate BS, no tenderness Skin: - - left auxillary has small noted area with packing and CD+ID with no noted drainage or erythema. Neurological: Alert and Oriented x 3, NL Sensation, NL Gait, NL Muscle Strength and Tone Lines/Tubes/Other Access: Clean, Dry and Intact Peripheral IV Nutrition: Taking PO's Result Diagrams: 07/22/17 05:46 07/22/17 05:46 Additional Lab and Data: Lab Results 07/21/17 07/21/17 07/21/17 Range/Units 09:37 09:37 09:37 WBC 11.1 H (3.5-10.8) 10^3/ul RBC 4.75 (4.0-5.4) 10^6/ul Hgb 13.5 L (14.0-18.0) g/dl Hct 40 L (42-52) % MCV 84 (80-94) fL MCH 29 (27-31) pg MCHC 34 (31-36) g/dl RDW 16 H (10.5-15) % Plt Count 168 (150-450) 10^3/ul MPV 7.6 (7.4-10.4) um3 Neut % (Auto) 89.5 H (38-83) % Lymph % (Auto) 4.3 L (25-47) % [place] % (Auto) 5.1 (0-7) % Eos % (Auto) 0.9 (0-6) % Baso % (Auto) 0.2 (0-2) % Absolute Neuts (auto) 10.0 H (1.5-7.7) 10^3/ul Absolute Lymphs (auto) 0.5 L (1.0-4.8) 10^3/ul Absolute Monos (auto) 0.6 (0-0.8) 10^3/ul Absolute Eos (auto) 0.1 (0-0.6) 10^3/ul Absolute Basos (auto) 0 (0-0.2) 10^3/ul Absolute Nucleated RBC 0 10^3/ul Nucleated RBC % 0 INR (Anticoag Therapy) (0.77-1.02) APTT (26.0-36.3) seconds D-Dimer, Quantitative (Less Than 230) ng/mL Sodium 131 L (139-145) mmol/L Potassium 4.5 (3.5-5.0) mmol/L Chloride 98 L (101-111) mmol/L Carbon Dioxide 23 (22-32) mmol/L Anion Gap 10 (2-11) mmol/L BUN 11 (6-24) mg/dL Creatinine 0.89 (0.67-1.17) mg/dL Est GFR ( Amer) 121.8 (>60) Est GFR (Non-Af Amer) 94.7 (>60) BUN/Creatinine Ratio 12.4 (8-20) Glucose 302 H (70-100) mg/dL Lactic Acid 2.1 H* (0.5-2.0) mmol/L Calcium 9.0 (8.6-10.3) mg/dL Total Bilirubin 0.80 (0.2-1.0) mg/dL AST 15 (13-39) U/L ALT 21 (7-52) U/L Alkaline Phosphatase 48 (34-104) U/L CK-MB (CK-2) 0.9 (0.6-6.3) ng/mL Troponin I 0.00 (<0.04) ng/mL B-Natriuretic Peptide ( - 100) pg/mL Total Protein 6.6 (6.4-8.9) g/dL Albumin 3.7 (3.2-5.2) g/dL Globulin 2.9 (2-4) g/dL Albumin/Globulin Ratio 1.3 (1-3) TSH 1.61 (0.34-5.60) mcIU/mL 07/21/17 07/21/17 Range/Units 09:37 09:37 WBC (3.5-10.8) 10^3/ul RBC (4.0-5.4) 10^6/ul Hgb (14.0-18.0) g/dl Hct (42-52) % MCV (80-94) fL MCH (27-31) pg MCHC (31-36) g/dl RDW (10.5-15) % Plt Count (150-450) 10^3/ul MPV (7.4-10.4) um3 Neut % (Auto) (38-83) % Lymph % (Auto) (25-47) % Lawrence % (Auto) (0-7) % Eos % (Auto) (0-6) % Baso % (Auto) (0-2) % Absolute Neuts (auto) (1.5-7.7) 10^3/ul Absolute Lymphs (auto) (1.0-4.8) 10^3/ul Absolute Monos (auto) (0-0.8) 10^3/ul Absolute Eos (auto) (0-0.6) 10^3/ul Absolute Basos (auto) (0-0.2) 10^3/ul Absolute Nucleated RBC 10^3/ul Nucleated RBC % INR (Anticoag Therapy) 1.14 H (0.77-1.02) APTT 31.0 (26.0-36.3) seconds D-Dimer, Quantitative < 200 (Less Than 230) ng/mL Sodium (139-145) mmol/L Potassium (3.5-5.0) mmol/L Chloride (101-111) mmol/L Carbon Dioxide (22-32) mmol/L Anion Gap (2-11) mmol/L BUN (6-24) mg/dL Creatinine (0.67-1.17) mg/dL Est GFR ( Amer) (>60) Est GFR (Non-Af Amer) (>60) BUN/Creatinine Ratio (8-20) Glucose (70-100) mg/dL Lactic Acid (0.5-2.0) mmol/L Calcium (8.6-10.3) mg/dL Total Bilirubin (0.2-1.0) mg/dL AST (13-39) U/L ALT (7-52) U/L Alkaline Phosphatase (34-104) U/L CK-MB (CK-2) (0.6-6.3) ng/mL Troponin I (<0.04) ng/mL B-Natriuretic Peptide 17 ( - 100) pg/mL Total Protein (6.4-8.9) g/dL Albumin (3.2-5.2) g/dL Globulin (2-4) g/dL Albumin/Globulin Ratio (1-3) TSH (0.34-5.60) mcIU/mL Microbiology and Other Data: Microbiology 07/21/17 12:38 Skin and Soft Tissue MRSA/MSSA (PCR - Final Axilla Left Mrsa Negative S.aureus Positive Gram Stain - Final Diagnostic Imaging: Patient Name: IDALMIS REDDY Medical Record#: [id number] Ordering Physician: Shawn Washington MD Acct.#: [id number] : 1975 Age: 42 Sex: M Location: EMERGENCY DEPARTMENT Exam Date: 07/21/17917 ADM Status: REG ER Order Information: CHEST PA & LAT 2 S Accession Number: [id number] CPT: 06226 HISTORY: Shortness of breath COMPARISONS: May 18, 2017 VIEWS: 4: Frontal dual-energy and lateral views of the chest. The right costophrenic angle is cut off. FINDINGS: CARDIOMEDIASTINAL SILHOUETTE: The cardiomediastinal silhouette is normal. ZEHRA: The zehra are normal. PLEURA: The left costophrenic angle is sharp. The right costophrenic angle is cut off. On the lateral views, the costophrenic angles are sharp. LUNG PARENCHYMA: The lungs are clear. ABDOMEN: The upper abdomen is clear. There is no subphrenic gas. BONES AND SOFT TISSUES: No bone or soft tissue abnormalities are noted. OTHER: None. IMPRESSION: NO ACTIVE CARDIOPULMONARY DISEASE. EKG Data: EKG INTERPRETATION ECG Report Patient Name IDALMIS REDDY Birthdate 1975 Sex M Order Number [id number] Date of ECG 07/21/2017 09:01:26 Interpretation Sinus tachycardia.rate> 99 - OTHERWISE NORMAL ECG - ECG NEEDS E-SIGNING Assess/Plan/Problems-Billing Assessment: A morbidly obese 42 y/o male with PMHx insulin dependent DM, HTN, asthma and sleep apnea, who presented to the ED with c/o SOB and left axilary swelling and redness, who also met sepsis criteria with tachycardia, fever and leukocytosis; admitted for left axilla abscess and cellulitis. - Patient Problems (1) Sepsis Comment: - Patient met sepsis criteria, now resolved - secondary to abscess - Clinically improving (2) cellulitis/abscess Comment: - Wound culture showed staph, negative for MRSA - DC zosyn and start Bactrim - continue wound care (3) Asthma Comment: - Controlled. - Continue Dulera BID and albuterol prn (4) Diabetes Comment: - Uncontrolled - Glucose 200-250's - IDDM type 2, doubt his compliance with home meds - FSBG ACHS with lispro SS and Lantus to 65 units bedtime. - Hold home oral medications - HgA1c last checked in 03/2017 was 8.8 (5) HTN (hypertension) Current Visit: No Status: Acute Code(s): I10 - ESSENTIAL (PRIMARY) HYPERTENSION SNOMED Code(s): 62875825 Comment: - Controlled - Continue Lisnopril (6) Depression Comment: - continue wellbutrin (7) Morbid obesity with BMI of 60.0-69.9, adult Comment: - Supportive care - may benefit from bariatric consultation at [facility], will refer at discharge (8) Sleep apnea Comment: - Continue home C-PAP (9) DVT prophylaxis Comment: - subQ Heparin (10) Full code status Status and Disposition: Inpatient for IV antibiotics. Anticipate discharge when medically stable, anticipate discharge tomorrow
[2017-07-23] MEDS: Insulin GLARGINE(*) 1 UNITS UNIT SUBCUT SCH (17:09)
[2017-07-23] MEDS: Acetaminophen TAB* 325 MG PO PRN (19:49)
[2017-07-23] MEDS: ARIPiprazole TAB* 5 MG PO SCH (19:49)
[2017-07-23] MEDS: Mirtazapine TAB* 15 MG PO SCH (19:50)
[2017-07-23] MEDS: Sulfamethox/Trimethoprim DS 800/160* TAB PO SCH (19:50)
[2017-07-24] MEDS: Heparin VIAL(*) 5000 UNITS/ML VIAL (FIVE THOUSAND) SUBCUT SCH (05:49)
[2017-07-24 06:15] LABS: ABS Basophils 0 10^3/ul (0-0.2); ABS Eosinophils 0.2 10^3/ul (0-0.6); ABS Lymphocytes 0.5 10^3/ul (1.0-4.8); ABS Monocytes 0.3 10^3/ul (0-0.8); ABS Neutrophils 5.1 10^3/ul (1.5-7.7); ABS Nucleated RBC 0 10^3/ul; Hematocrit 36 % (42-52); Hemoglobin 12.4 g/dl (14.0-18.0); Lymphocyte % 8.2 % (25-47); Mean Corpuscular HGB Conc 34 g/dl (31-36); Mean Corpuscular Hemoglobin 28 pg (27-31); Mean Corpuscular Volume 83 fL (80-94); Mean Platelet Volume 7.2 um3 (7.4-10.4); Nucleated Red Blood Cells % 0.1; Platelet Count 193 10^3/ul (150-450); Red Blood Count 4.38 10^6/ul (4.0-5.4); Red Cell Distribution Width 16 % (10.5-15); White Blood Count 6.2 10^3/ul (3.5-10.8)
[2017-07-24 06:36] LABS: EGFR Non-African American 120.9 (>60)
[2017-07-24 07:45] VITALS: BP 144/88
[2017-07-24] MEDS: Insulin LISPRO* 1 UNITS UNIT SUBCUT SCH (08:35)
[2017-07-24] MEDS: BuPROPion XL* 150 MG TAB.XL PO SCH (08:36)
[2017-07-24] MEDS: Sulfamethox/Trimethoprim DS 800/160* TAB PO SCH (08:36)
[2017-07-24] MEDS: Lisinopril TAB* 10 MG PO SCH (08:37)
[2017-07-24] MEDS: Allopurinol TAB* 100 MG PO SCH (08:37)
[2017-07-24] MEDS: Cetirizine* 10 MG TAB PO SCH (08:37)
--- NOTE | 2017-07-24 08:40 | DCNOTE ---
Subjective Date of Service: 07/24/17 Interval History: Patient reports he feels well today. No fevers or chills. Denies any pain at left axillary site. Feels stronger today and ready to go home Family History: Unchanged from Admission Social History: Unchanged from Admission Past Medical History: Unchanged from Admission Objective Active Medications: Acetaminophen (Tylenol Tab*) 650 mg PO Q4H PRN PRN Reason: FEVER/PAIN Last Admin: 07/23/17 19:49 Dose: 650 mg Hydrocodone Bitart/Acetaminophen ([place] 5-325 Tab*) 1 tab PO Q4H PRN PRN Reason: PAIN Albuterol (Ventolin Hfa Inhaler*) 2 puff INH Q4H PRN PRN Reason: SOB/WHEEZING Last Admin: 07/23/17 13:40 Dose: 2 puff Allopurinol (Zyloprim Tab*) 200 mg PO BID [facility] Last Admin: 07/24/17 08:37 Dose: 200 mg Aripiprazole (Abilify Tab*) 5 mg PO BEDTIME [facility] Last Admin: 07/23/17 19:49 Dose: 5 mg Bupropion HCl (Wellbutrin Xl *) 450 mg PO QAM [facility] Last Admin: 07/24/17 08:36 Dose: 450 mg Cetirizine HCl (Zyrtec*) 10 mg PO DAILY [facility] Last Admin: 07/24/17 08:37 Dose: 10 mg Dextrose (D50w Syringe 50 Ml*) 12.5 gm IV PUSH .FOR FS < 60 - SS PRN PRN Reason: FS < 60 Heparin Sodium (Porcine) (Heparin Vial(*)) 5,000 units SUBCUT Q8HR [facility] Last Admin: 07/24/17 05:49 Dose: 5,000 units Insulin Glargine (Lantus(*)) 65 units SUBCUT QPM [facility] Last Admin: 07/23/17 17:09 Dose: 65 unit Insulin Human Lispro (Humalog*) 0 - 15 units SUBCUT AC [facility] PRN Reason: Protocol Last Admin: 07/24/17 08:35 Dose: 6 units Lisinopril (Prinivil Tab*) 20 mg PO DAILY [facility] PRN Reason: Protocol Last Admin: 07/24/17 08:37 Dose: 20 mg Mirtazapine (Remeron Tab*) 15 mg PO BEDTIME [facility] Last Admin: 07/23/17 19:50 Dose: 15 mg Mometasone Furoate/Formoterol Fumar (Dulera 200/5 Mdi*) 2 puff INH BID [facility] Last Admin: 07/23/17 20:46 Dose: 2 puff Trimethoprim/Sulfamethoxazole (Bactrim Ds 800/160 Tab*) 1 tab PO BID [facility] Last Admin: 07/24/17 08:36 Dose: 1 tab Vital Signs - 8 hr 07/24/17 07/24/17 03:04 07:23 Temperature 98.1 F 97.9 F Pulse Rate 76 80 Respiratory 18 20 Rate Blood Pressure 136/85 144/88 (mmHg) O2 Sat by Pulse 98 97 Oximetry Oxygen Devices in Use Now: None Appearance: morbidly obese male A+Ox3 in NAD Eyes: No Scleral Icterus Neck: NL Appearance and Movements; NL JVP Respiratory: Symmetrical Chest Expansion and Respiratory Effort, Clear to Auscultation Cardiovascular: NL Sounds; No Murmurs; No JVD, RRR, No Edema Extremities: No Edema, No Clubbing, Cyanosis Skin: - - left axillary has small opening - packing was removed, little clear drainage, no noted induration or erythema. Neurological: Alert and Oriented x 3, NL Sensation, NL Muscle Strength and Tone Lines/Tubes/Other Access: Clean, Dry and Intact Peripheral IV Nutrition: Taking PO's Result Diagrams: 07/24/17 06:08 07/24/17 06:08 Additional Lab and Data: Lab Results 07/21/17 07/21/17 07/21/17 Range/Units 09:37 09:37 09:37 WBC 11.1 H (3.5-10.8) 10^3/ul RBC 4.75 (4.0-5.4) 10^6/ul Hgb 13.5 L (14.0-18.0) g/dl Hct 40 L (42-52) % MCV 84 (80-94) fL MCH 29 (27-31) pg MCHC 34 (31-36) g/dl RDW 16 H (10.5-15) % Plt Count 168 (150-450) 10^3/ul MPV 7.6 (7.4-10.4) um3 Neut % (Auto) 89.5 H (38-83) % Lymph % (Auto) 4.3 L (25-47) % [place] % (Auto) 5.1 (0-7) % Eos % (Auto) 0.9 (0-6) % Baso % (Auto) 0.2 (0-2) % Absolute Neuts (auto) 10.0 H (1.5-7.7) 10^3/ul Absolute Lymphs (auto) 0.5 L (1.0-4.8) 10^3/ul Absolute Monos (auto) 0.6 (0-0.8) 10^3/ul Absolute Eos (auto) 0.1 (0-0.6) 10^3/ul Absolute Basos (auto) 0 (0-0.2) 10^3/ul Absolute Nucleated RBC 0 10^3/ul Nucleated RBC % 0 INR (Anticoag Therapy) (0.77-1.02) APTT (26.0-36.3) seconds D-Dimer, Quantitative (Less Than 230) ng/mL Sodium 131 L (139-145) mmol/L Potassium 4.5 (3.5-5.0) mmol/L Chloride 98 L (101-111) mmol/L Carbon Dioxide 23 (22-32) mmol/L Anion Gap 10 (2-11) mmol/L BUN 11 (6-24) mg/dL Creatinine 0.89 (0.67-1.17) mg/dL Est GFR ( Amer) 121.8 (>60) Est GFR (Non-Af Amer) 94.7 (>60) BUN/Creatinine Ratio 12.4 (8-20) Glucose 302 H (70-100) mg/dL Lactic Acid 2.1 H* (0.5-2.0) mmol/L Calcium 9.0 (8.6-10.3) mg/dL Total Bilirubin 0.80 (0.2-1.0) mg/dL AST 15 (13-39) U/L ALT 21 (7-52) U/L Alkaline Phosphatase 48 (34-104) U/L CK-MB (CK-2) 0.9 (0.6-6.3) ng/mL Troponin I 0.00 (<0.04) ng/mL B-Natriuretic Peptide ( - 100) pg/mL Total Protein 6.6 (6.4-8.9) g/dL Albumin 3.7 (3.2-5.2) g/dL Globulin 2.9 (2-4) g/dL Albumin/Globulin Ratio 1.3 (1-3) TSH 1.61 (0.34-5.60) mcIU/mL 07/21/17 07/21/17 Range/Units 09:37 09:37 WBC (3.5-10.8) 10^3/ul RBC (4.0-5.4) 10^6/ul Hgb (14.0-18.0) g/dl Hct (42-52) % MCV (80-94) fL MCH (27-31) pg MCHC (31-36) g/dl RDW (10.5-15) % Plt Count (150-450) 10^3/ul MPV (7.4-10.4) um3 Neut % (Auto) (38-83) % Lymph % (Auto) (25-47) % [place] % (Auto) (0-7) % Eos % (Auto) (0-6) % Baso % (Auto) (0-2) % Absolute Neuts (auto) (1.5-7.7) 10^3/ul Absolute Lymphs (auto) (1.0-4.8) 10^3/ul Absolute Monos (auto) (0-0.8) 10^3/ul Absolute Eos (auto) (0-0.6) 10^3/ul Absolute Basos (auto) (0-0.2) 10^3/ul Absolute Nucleated RBC 10^3/ul Nucleated RBC % INR (Anticoag Therapy) 1.14 H (0.77-1.02) APTT 31.0 (26.0-36.3) seconds D-Dimer, Quantitative < 200 (Less Than 230) ng/mL Sodium (139-145) mmol/L Potassium (3.5-5.0) mmol/L Chloride (101-111) mmol/L Carbon Dioxide (22-32) mmol/L Anion Gap (2-11) mmol/L BUN (6-24) mg/dL Creatinine (0.67-1.17) mg/dL Est GFR ( Amer) (>60) Est GFR (Non-Af Amer) (>60) BUN/Creatinine Ratio (8-20) Glucose (70-100) mg/dL Lactic Acid (0.5-2.0) mmol/L Calcium (8.6-10.3) mg/dL Total Bilirubin (0.2-1.0) mg/dL AST (13-39) U/L ALT (7-52) U/L Alkaline Phosphatase (34-104) U/L CK-MB (CK-2) (0.6-6.3) ng/mL Troponin I (<0.04) ng/mL B-Natriuretic Peptide 17 ( - 100) pg/mL Total Protein (6.4-8.9) g/dL Albumin (3.2-5.2) g/dL Globulin (2-4) g/dL Albumin/Globulin Ratio (1-3) TSH (0.34-5.60) mcIU/mL Microbiology and Other Data: Microbiology 07/21/17 12:38 Skin and Soft Tissue MRSA/MSSA (PCR - Final Axilla Left Mrsa Negative S.aureus Positive Gram Stain - Final Diagnostic Imaging: Patient Name: IDALMIS REDDY Medical Record#: [id number] Ordering Physician: Shawn Washington MD Acct.#: [id number] : 1975 Age: 42 Sex: M Location: EMERGENCY DEPARTMENT Exam Date: 07/21/17917 ADM Status: REG ER Order Information: CHEST PA & LAT 2 S Accession Number: [id number] CPT: 70041 HISTORY: Shortness of breath COMPARISONS: May 18, 2017 VIEWS: 4: Frontal dual-energy and lateral views of the chest. The right costophrenic angle is cut off. FINDINGS: CARDIOMEDIASTINAL SILHOUETTE: The cardiomediastinal silhouette is normal. RICH: The rich are normal. PLEURA: The left costophrenic angle is sharp. The right costophrenic angle is cut off. On the lateral views, the costophrenic angles are sharp. LUNG PARENCHYMA: The lungs are clear. ABDOMEN: The upper abdomen is clear. There is no subphrenic gas. BONES AND SOFT TISSUES: No bone or soft tissue abnormalities are noted. OTHER: None. IMPRESSION: NO ACTIVE CARDIOPULMONARY DISEASE. EKG Data: EKG INTERPRETATION ECG Report Patient Name IDALMIS REDDY Birthdate 1975 Sex M Order Number [id number] Date of ECG 07/21/2017 09:01:26 Interpretation Sinus tachycardia.rate> 99 - OTHERWISE NORMAL ECG - ECG NEEDS E-SIGNING Assess/Plan/Problems-Billing Assessment: A morbidly obese 42 y/o male with PMHx insulin dependent DM, HTN, asthma and sleep apnea, who presented to the ED with c/o SOB and left axilary swelling and redness, who also met sepsis criteria with tachycardia, fever and leukocytosis; admitted for left axilla abscess and cellulitis. - Patient Problems (1) Sepsis Comment: - Patient met sepsis criteria, now resolved - secondary to abscess (2) cellulitis/abscess Comment: - Wound culture showed staph, negative for MRSA - DC zosyn and start Bactrim (sensitive) - D/C packing - side consulted Dr. Lorenzana who looked at the wound and recommended no packing, wash daily with soap and water, antibiotic ointment daily and f/u with pcp. (3) Asthma Comment: - Controlled. - Continue Dulera BID and albuterol prn (4) Diabetes Comment: - Uncontrolled - Glucose 200-250's - IDDM type 2, doubt his compliance with home meds - FSBG ACHS with lispro SS and Lantus to 65 units bedtime. - Resume home oral medications - HgA1c last checked in 03/2017 was 8.8 - Discussed diabetes management and risks of uncontrolled DM. Plan for referral to [facility]. (5) HTN (hypertension) Comment: - Controlled - Continue Lisnopril (6) Depression Comment: - continue wellbutrin (7) Morbid obesity with BMI of 60.0-69.9, adult Comment: - Supportive care - may benefit from bariatric consultation at [facility], will refer at discharge (8) Sleep apnea Comment: - Continue home C-PAP (9) DVT prophylaxis Comment: - subQ Heparin (10) Full code status Status and Disposition: Inpatient. Plan for discharge today
[2017-07-24] MEDS: Mometasone/Formoter 200/5 MDI INH SCH (09:58)
--- NOTE | 2017-07-24 13:38 | DS ---
CC: Dr. Davis. * DISCHARGE SUMMARY: DATE OF ADMISSION: 07/21/17 DATE OF DISCHARGE: 07/24/17 PROVIDER: Dwayne Boyd NP. ATTENDING PHYSICIAN: Dr. Orozco * (report dictated by Dwayne Boyd NP). PRIMARY CARE PROVIDER: Dr. Davis. DISCHARGE DIAGNOSES: 1. Sepsis secondary to left axillary abscess status post incision and drainage. 2. Insulin-dependent type 2 diabetes. 3. Morbid obesity. SECONDARY DIAGNOSES: 1. Hypertension. 2. Asthma. 3. Obstructive sleep apnea, on CPAP. 4. Depression. 5. Gout. HISTORY OF PRESENT ILLNESS AND HOSPITAL COURSE: Please see history and physical by [facility] [place] for full admission, details but in summary this is a 42- year-old male with a past medical history as stated above who presented to the emergency department on 07/21/17 with complaint of weakness and abscess under his left arm for approximately 3 weeks. He denied any fever or chills at home, but did report generalized weakness. On admission , he had a mild leukocytosis of 11, lactic acid of 2.1, and screened positive for sepsis with noted tachycardia with a heart rate of 111, fever of 100.2, and leukocytosis. He was given 3 L of normal saline in the emergency department and started on broad-spectrum antibiotics. In the emergency department, the emergency room provider performed an incision and drainage, which required a small amount of packing. A wound culture was negative for MRSA and was positive for Staphylococcus aureus. He has had negative blood cultures. He was initially on Zosyn and yesterday was switched to Bactrim per the sensitivity. The patient has done well throughout his hospitalization. The left axillary abscess was packed with Iodoform daily with minimal drainage. At this point, the packing was removed this morning, appears to be a very small incision with no noted induration or erythema. Per patient, this area now is nontender. I side consulted Dr. Blanco Lorenzana who looked at the area this morning and recommended no further packing and recommended soap and water to the area once to twice daily with antibiotic ointment and follow up with his primary care provider. In regard to patient's generalized weakness, this has resolved. The patient is back to his baseline and is stable for discharge to home. He has had no further fevers since admission and his leukocytosis has resolved. I discussed with the patient a referral to [facility] for diabetes and weight management and which the patient states he will consider it. He has been provided with their phone number. We discussed the risks of morbid obesity and uncontrolled diabetes. There is a question of whether the patient is compliant with his home medications as well I discussed healthy diabetic diet and close monitoring of his blood sugars. DISCHARGE MEDICATIONS: 1. Remeron 50 mg p.o. at bedtime. 2. Trulicity 1.5 mg subcu weekly. 3. Abilify 5 mg p.o. at bedtime. 4. Bupropion XL 450 mg p.o. q.a.m. 5. Allopurinol 200 mg p.o. b.i.d. 6. Lantus 65 units subcu q.p.m. 7. Glimepiride 4 mg p.o. b.i.d. 8. Metformin 1000 mg p.o. b.i.d. 9. Quinapril 20 mg p.o. daily. 10. Loratadine 10 mg p.o. daily. 11. Advair Diskus 500/50 one puff INH b.i.d. 12. Albuterol HFA inhaler 2 puffs INH q.4 hours p.r.n. New Medication: 1. Bactrim DS 800/160 mg 1 tab p.o. b.i.d. x5 more days. DISCHARGE PLAN: 1. Patient was instructed to call his primary care provider to follow up this week. 2. Return to the emergency department with any worsening or concerning symptoms. 3. A referral to [facility] for weight and diabetes management. 4. The patient was instructed to wash the axillary area with soap and water once or twice daily, applying antibiotic ointment to the area and monitoring for signs of infection. Again at this point, the area appears to be healing well with no erythema, drainage or induration noted. TIME SPENT: Approximately 60 minutes was spent on discharge of the patient. DWAYNE BOYD, [place] [id number]/[facility] #: [id number] [facility] H[facility]PITALRoxane
== END 2017-07-24 10:35 | disposition home or self-care (01) | DRG 854 ==
LOC: ED 08:50 → MED 11:38
PROVIDERS: ADMIT Internal Medicine; ATTEND Internal Medicine
PROC: 0J9F0ZZ Drainage of Left Upper Arm Subcutaneous Tissue and Fascia, Open Approach (ICD-10-PCS; principal; 2017-07-21)
DX: A41.9 Sepsis, unspecified organism (principal); L02.412 Cutaneous abscess of left axilla; Z68.44 Body mass index [BMI] 60.0-69.9, adult; B95.61 Methicillin susceptible Staphylococcus aureus infection as the cause of diseases classified elsewhere; E11.9 Type 2 diabetes mellitus without complications; I10 Essential (primary) hypertension; J45.909 Unspecified asthma, uncomplicated; G47.33 Obstructive sleep apnea (adult) (pediatric); F32.9 Major depressive disorder, single episode, unspecified; M10.9 Gout, unspecified; E66.01 Morbid (severe) obesity due to excess calories; Z79.84 Long term (current) use of oral hypoglycemic drugs; Z79.4 Long term (current) use of insulin; Z79.899 Other long term (current) drug therapy; Z88.6 Allergy status to analgesic agent; Z88.8 Allergy status to other drugs, medicaments and biological substances; Z91.048 Other nonmedicinal substance allergy status; Z82.49 Family history of ischemic heart disease and other diseases of the circulatory system; Z83.3 Family history of diabetes mellitus; Z80.8 Family history of malignant neoplasm of other organs or systems
CPT/HCPCS: 36415; 71046; 80048; 80053; 80202; 81003; 81015; 82553; 83605; 83880; 84443; 84484; 85025; 85379; 85610; 85730; 87040; 87070; 87073; 87077; 87086; 87186; 87205; 87640; 87641; 93005; 94640; 99284; A9270-GY; J1644; J2270; J2543; J2765; J3370

== ENCOUNTER 2018-01-31 22:51 | Emergency (ER) | payer MEDICARE ==
--- NOTE | 2018-02-01 00:40 | ED ---
HPI Chest Pain - HPI Summary HPI Summary: This patient is a 43 year old M presenting to [facility] accompanied by a female with a chief complaint of left sided CP that began at 2100. 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 The patient rates the pain 8/10 in severity , states it does not radiate, and describes it as sharp. Patient reports rapid palpitations and SOB. He states the palpitations have ceased but he still has CP. He states he has had similar CP in the past he was worked up without significant findings. He had a negatives stress test and echo cardiogram 3 years ago. - History of Current Complaint Chief Complaint: EDChestPainROMI Hx Obtained From: Patient Onset/Duration: Started Hours Ago, Still Present Time of Onset: 21:00 Timing: Constant Initial Severity: Severe Current Severity: Severe Pain Intensity: 8 Pain Scale Used: 0-10 Numeric Chest Pain Location: Left Anterior Chest Pain Radiates: No Character: Sharp/Stabbing Associated Signs and Symptoms: Positive: Other: - SOB palpitations - Additional Pertinent History Primary Care Physician: FANTA - Allergy/Home Medications Allergies/Adverse Reactions: Allergies Allergy/AdvReac Type Severity Reaction Status Date / Time dextromethorphan Allergy Nausea Verified 01/31/18 23:10 [From Mucinex DM] guaifenesin [From Mucinex DM] Allergy Nausea Verified 01/31/18 23:10 ibuprofen [From Motrin] Allergy rash/kidneys Verified 01/31/18 23:10 shut down orange oil Allergy hives Uncoded 01/31/18 23:10 diff breathing PMH/Surg Hx/FS Hx/Imm Hx Endocrine/Hematology History: Reports: Hx Diabetes Denies: Hx Thyroid Disease Cardiovascular History: Reports: Hx Hypertension Respiratory History: Reports: Hx Asthma, Hx Sleep Apnea - uses cpap Denies: Hx Chronic Obstructive Pulmonary Disease (COPD) GI History: Denies: Hx Ulcer History: Reports: Other Problems/Disorders - kidney "issues" when he takes ibuprofen Denies: Hx Renal Disease Musculoskeletal History: Reports: Hx Gout Sensory History: Reports: Hx Contacts or Glasses - glasses Denies: Hx Hearing Aid Opthamlomology History: Reports: Hx Contacts or Glasses - glasses Psychiatric History: Reports: Hx Depression - Cancer History Cancer Type, Location and Year: none - Surgical History Surgery Procedure, Year, and Place: RIGHT WRIST FRACTURE, SCREWS PLACED. Hx Anesthesia Reactions: No - Immunization History Date of Tetanus Vaccine: UNKNOWN Infectious Disease History: No Infectious Disease History: Denies: Hx Hepatitis, Hx Human Immunodeficiency Virus (HIV), Traveled Outside the [place] in Last 30 Days - Family History Known Family History: Positive: Hypertension, Diabetes, Other - cancer - Social History Alcohol Use: None Hx Substance Use: No Substance Use Type: Reports: None Hx Tobacco Use: No Smoking Status (MU): Never Smoked Tobacco Review of Systems Positive: Palpitations, Chest Pain Positive: Shortness Of Breath All Other Systems Reviewed And Are Negative: Yes Physical Exam - Summary Physical Exam Summary: VITAL SIGNS: Reviewed. GENERAL: Patient is a well-developed and morbidly obese male who is lying comfortable in the stretcher. Patient is not in any acute respiratory distress. HEAD AND FACE: No signs of trauma. No ecchymosis, hematomas or skull depressions. No sinus tenderness. EYES: PERRLA, EOMI x 2, No injected conjunctiva, no nystagmus. EARS: Hearing grossly intact. Ear canals and tympanic membranes are within normal limits. MOUTH: Oropharynx within normal limits. NECK: Supple, trachea is midline, no adenopathy, no JVD, no carotid bruit, no c- spine tenderness, neck with full ROM. CHEST: Symmetric, TTP midsternally LUNGS: Clear to auscultation bilaterally. No wheezing or crackles. CVS: Regular rate and rhythm, S1 and S2 present, no murmurs or gallops appreciated. ABDOMEN: Soft, non-tender. No signs of distention. No rebound no guarding, and no masses palpated. Bowel sounds are normal. EXTREMITIES: FROM in all major joints, no edema, no cyanosis or clubbing. NEURO: Alert and oriented x 3. No acute neurological deficits. Speech is normal and follows commands. SKIN: Dry and warm Triage Information Reviewed: Yes Vital Signs On Initial Exam: Initial Vitals Temp Pulse Resp BP Pulse Ox 97.0 F 84 16 157/87 94 01/31/18 23:05 01/31/18 23:05 01/31/18 23:05 01/31/18 23:05 01/31/18 23:05 Vital Signs Reviewed: Yes Diagnostics - Vital Signs Vital Signs Temp Pulse Resp BP Pulse Ox 01/31/18 23:05 97.0 F 84 16 157/87 94 - Laboratory Result Diagrams: 02/01/18 01:23 02/01/18 01:23 Lab Statement: Any lab studies that have been ordered have been reviewed, and results considered in the medical decision making process. - Radiology CXR Radiology Interpretation Completed By: ED Physician Summary of Radiographic Findings: no acute process. Pending official report. - EKG 2311 Cardiac Rate: NL EKG Rhythm: Sinus Rhythm - at 89 BPM Summary of EKG Findings: Normal axis. Normal interval. No ischemic changes Chest Pain Course/Dx - Course Assessment/Plan: This patient is a 43 year old M presenting to [facility] accompanied by a female with a chief complaint of left sided CP that began at 2100. 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 The patient rates the pain 8/10 in severity, states it does not radiate, and describes it as sharp. Patient reports rapid palpitations and SOB. He states the palpitations have ceased but he still has CP. He states he has had similar CP in the past he was worked up without significant findings. He had a negatives stress test and echo cardiogram 3 years ago. An EKG reveals 89 BPM Normal axis. Normal interval. No ischemic changes. CXR reveals, no acute process. Pending official report. The patient had two negative troponins in the ED. In the ED course the patient was given ASA. Patient will be discharged and follow up from cardiology. The patient is agreeable with this plan. - Diagnoses Provider Diagnoses: Chest pain Discharge - Sign-Out/Discharge Documenting (check all that apply): Patient Departure - Discharge Plan Condition: Stable Disposition: HOME Patient Education Materials: Chest Pain (ED) Referrals: Gordon Donnelly MD [Medical Doctor] - Additional Instructions: Please follow up with cardiology to schedule an outpatient stress test. Return to the emergency department for any new of worsening symptoms. - Attestation Statements Document Initiated by Scribe: Yes Documenting Scribe: Herbert Cole Provider For Whom Rhoda is Documenting (Include Credential): Philippe Hoffman MD Scribe Attestation: Herbert Luna , solangeibed for Philippe Hoffman MD on 02/01/18 at [id number]. Status of Scribe Document: Ready
[2018-02-01] MEDS ORDERED: Aspirin 81 mg CHEW TAB* 81 MG TAB.CHEW PO ONE (00:41)
[2018-02-01 01:33] LABS: ABS Basophils 0.1 10^3/ul (0-0.2); ABS Eosinophils 0.1 10^3/ul (0-0.6); ABS Monocytes 0.3 10^3/ul (0-0.8); ABS Neutrophils 6.2 10^3/ul (1.5-7.7); ABS Nucleated RBC 0 10^3/ul; Eosinophil % 1.4 %; Hematocrit 41 % (42-52); Hemoglobin 13.6 g/dl (14.0-18.0); Lymphocyte % 12.6 %; Mean Corpuscular HGB Conc 34 g/dl (31-36); Mean Corpuscular Hemoglobin 28 pg (27-31); Mean Corpuscular Volume 85 fL (80-94); Mean Platelet Volume 7.9 fL (7.4-10.4); Nucleated Red Blood Cells % 0; Platelet Count 170 10^3/ul (150-450); Red Blood Count 4.78 10^6/ul (4.00-5.40); Red Cell Distribution Width 16 % (10.5-15); White Blood Count 7.7 10^3/ul (3.5-10.8)
[2018-02-01 01:50] LABS: EGFR Non-African American 85.3 (>60)
[2018-02-01 01:54] LABS: INR 1.13 (0.77-1.02)
[2018-02-01 04:48] VITALS: BP 141/76
== END 2018-02-01 04:48 | disposition home or self-care (01) ==
LOC: ED 22:51
DX: R07.9 Chest pain, unspecified (principal); E11.9 Type 2 diabetes mellitus without complications; I10 Essential (primary) hypertension; J45.909 Unspecified asthma, uncomplicated; G47.30 Sleep apnea, unspecified; F32.9 Major depressive disorder, single episode, unspecified; E66.01 Morbid (severe) obesity due to excess calories
CPT/HCPCS: 36415; 71045; 80053; 83735; 84484; 85025; 85610; 85730; 93005; 99283; A9270-GY

== ENCOUNTER 2018-05-07 14:30 | Emergency (ER) | payer MEDICARE ==
[2018-05-07] MEDS ORDERED: Aspirin 81 mg CHEW TAB* 81 MG TAB.CHEW PO ONE (15:03)
[2018-05-07] MEDS ORDERED: Nitroglycerin TAB 0.4 MG* 0.4 MG TAB SL ONE (15:04)
--- NOTE | 2018-05-07 15:06 | ED ---
HPI Chest Pain - HPI Summary HPI Summary: A 43 y/o M presents to ED with c/o L-anterior CP onset 1000 this date. He describes it as a sharp pain that wraps around to his back. He was at rest at onset. Associated sx: SOB. Denies: n/v, diaphoresis. Aggravating factors: deep breaths. Movement does not exacerbate the CP. He has had previous episodes of similar pain. Denies cardiac hx but he does have a PMHx: HTN, DM. He is a non- smoker, does not drink nor use street drugs. He has no FHx of early-age cardiac events. - History of Current Complaint Chief Complaint: EDChestPainROMI Time Seen by Provider: 05/07/18 14:59 Hx Obtained From: Patient Onset/Duration: Started Hours Ago, Still Present Timing: Constant Current Severity: Severe Pain Intensity: 9 Pain Scale Used: 0-10 Numeric Chest Pain Location: Left Anterior Chest Pain Radiates: Yes Chest Pain Radiates To:: Back - L-back Character: Sharp/Stabbing Aggravating Factor(s): Deep Breaths Associated Signs and Symptoms: Positive: Shortness of Breath. Negative: Diaphoresis, Nausea, Vomiting Related History: Obesity - Additional Pertinent History Primary Care Physician: FANTA - Allergy/Home Medications Allergies/Adverse Reactions: Allergies Allergy/AdvReac Type Severity Reaction Status Date / Time dextromethorphan Allergy Nausea Verified 05/07/18 17:03 [From Mucinex DM] guaifenesin [From Mucinex DM] Allergy Nausea Verified 05/07/18 17:03 ibuprofen [From Motrin] Allergy rash/kidneys Verified 05/07/18 17:03 shut down orange oil Allergy hives Uncoded 05/07/18 17:03 diff breathing PMH/Surg Hx/FS Hx/Imm Hx Previously Healthy: No Endocrine/Hematology History: Reports: Hx Diabetes Denies: Hx Thyroid Disease Cardiovascular History: Reports: Hx Hypertension Respiratory History: Reports: Hx Asthma, Hx Sleep Apnea - uses cpap Denies: Hx Chronic Obstructive Pulmonary Disease (COPD) GI History: Denies: Hx Ulcer History: Reports: Other Problems/Disorders - kidney "issues" when he takes ibuprofen Denies: Hx Renal Disease Musculoskeletal History: Reports: Hx Gout Sensory History: Reports: Hx Contacts or Glasses - glasses Denies: Hx Hearing Aid Opthamlomology History: Reports: Hx Contacts or Glasses - glasses Psychiatric History: Reports: Hx Depression - Cancer History Cancer Type, Location and Year: none - Surgical History Surgery Procedure, Year, and Place: RIGHT WRIST FRACTURE, SCREWS PLACED. Hx Anesthesia Reactions: No - Immunization History Date of Tetanus Vaccine: UNKNOWN Infectious Disease History: No Infectious Disease History: Denies: Hx Hepatitis, Hx Human Immunodeficiency Virus (HIV), Traveled Outside the [place] in Last 30 Days - Family History Known Family History: Positive: Hypertension, Diabetes, Other - cancer Negative: Cardiac Disease - Social History Occupation: Disabled Lives: With Family Alcohol Use: None Hx Substance Use: No Substance Use Type: Reports: None Hx Tobacco Use: No Smoking Status (MU): Never Smoked Tobacco Review of Systems Negative: Skin Diaphoresis Positive: Chest Pain Positive: Shortness Of Breath Negative: Vomiting, Nausea All Other Systems Reviewed And Are Negative: Yes Physical Exam - Summary Physical Exam Summary: VITAL SIGNS: Reviewed. GENERAL: Patient is a well-developed, obese MALE who is lying comfortable in the stretcher. Patient is not in any acute respiratory distress. HEAD AND FACE: No signs of trauma. No ecchymosis, hematomas or skull depressions. No sinus tenderness. EYES: PERRLA, EOMI x 2, No injected conjunctiva, no nystagmus. EARS: Hearing grossly intact. Ear canals and tympanic membranes are within normal limits. MOUTH: Oropharynx within normal limits. NECK: Supple, trachea is midline, no adenopathy, no JVD, no carotid bruit, no c- spine tenderness, neck with full ROM. CHEST: Symmetric, no tenderness at palpation LUNGS: Clear to auscultation bilaterally. No wheezing or crackles. CVS: Regular rate and rhythm, S1 and S2 present, no murmurs or gallops appreciated. ABDOMEN: Soft, non-tender. No signs of distention. No rebound, no guarding, and no masses palpated. Bowel sounds are normal. EXTREMITIES: FROM in all major joints, no edema, no cyanosis or clubbing. NEURO: Alert and oriented x 3. No acute neurological deficits. Speech is normal and follows commands. SKIN: Dry and warm Triage Information Reviewed: Yes Vital Signs On Initial Exam: Initial Vitals Temp Pulse Resp BP Pulse Ox 96.6 F 95 26 146/74 96 05/07/18 14:31 05/07/18 14:31 05/07/18 14:31 05/07/18 14:31 05/07/18 14:31 Vital Signs Reviewed: Yes Diagnostics - Vital Signs Vital Signs Temp Pulse Resp BP Pulse Ox 05/07/18 14:31 96.6 F 95 26 146/74 96 - Laboratory Result Diagrams: 05/07/18 15:27 05/07/18 15:27 Lab Statement: Any lab studies that have been ordered have been reviewed, and results considered in the medical decision making process. - Radiology CXR Radiology Interpretation Completed By: Radiologist Summary of Radiographic Findings: IMPRESSION: #. Mild bibasilar subsegmental atelectasis favored over pneumonia. ED provider has reviewed this report. - EKG 1341 Cardiac Rate: NL - 87 bpm EKG Rhythm: Sinus Rhythm Summary of EKG Findings: ST depression in II and III. No ST elevation. Re-Evaluation - Re-Evaluation 1 Re-Evaluation Time: 18:21 Change: Improved Comment: After getting the Toradol PO, his symptoms have resolved. Chest Pain Course/Dx - Course Assessment/Plan: This patient is a 43-year-old male with past medical history significant for hypertension, diabetes, dyslipidemia and obesity presents to the emergency department with chief complaint of having left-sided chest pain. Test results without any significant abnormality except for glucose of 161, lactic acid is 2.1, troponin is 0.01. Chest x-ray impression: Mild bibasalar subjective subsegmental atelectasis favored over pneumonia. Patient was given nitroglycerin and the symptoms do not improve. He was given Toradol and the chest pain has subsided. He says that the pain is secondary to muscular skeletal pain. The second troponin 4 hours apart is also negative. Therefore the patient will be discharged home with follow-up with PCP. Patient is hemodynamically stable alert and oriented times same. Heart score is equal to 2 which is a low score for acute coronary syndrome. I discussed all the findings and test results with the patient. Patient was instructed to return to the emergency room immediately if any of the symptoms return or worsens. Plan of care was discussed with the patient and understands and agrees. All questions were answered to patient satisfaction. There were no further complaints or concerns. Lung exam before discharge: CTA B/L. Good air exchange. No wheezing or crackles heard. CVS: S1 and S2 present. No murmurs appreciated. Patient is alert and oriented x 3. Patient is hemodynamically stable. Patient will be discharged home with follow up PCP in the next 2-3 days. - Chest Pain Differential Diagnosis/HQI/PQRI: Acute FL, ACS, Angina, CHF, Chest Wall, GI Disease, Lower Respiratory Infection, Pulmonary Edema - Diagnoses Provider Diagnoses: Atypical chest pain Discharge - Sign-Out/Discharge Documenting (check all that apply): Patient Departure - D/C Patient Received Moderate/Deep Sedation with Procedure: No - Discharge Plan Condition: Stable Disposition: HOME Patient Education Materials: Chest Pain (ED) Referrals: Lise Davis MD [Primary Care Provider] - 3 Days Additional Instructions: RETURN TO THE ED FOR ANY WORSENING OR NEW SYMPTOMS. - Billing Disposition and Condition Condition: STABLE Disposition: Home - Attestation Statements Document Initiated by Marysolibfrancine: Yes Documenting Scribe: Deshawn Green Provider For Whom Scribe is Documenting (Include Credential): Dr. Henrique Rodney MD Scribe Attestation: Deshawn Luna scribed for Dr. Henrique Rodney MD on 05/12/18 at 1123. Scribe Documentation Reviewed: Yes Provider Attestation: The documentation as recorded by the Deshawn colon accurately reflects the service I personally performed and the decisions made by , Dr. Henrique Rodney MD Status of Scribe Document: Viewed
[2018-05-07 15:32] LABS: ABS Basophils 0.1 10^3/ul (0-0.2); ABS Eosinophils 0.1 10^3/ul (0-0.6); ABS Monocytes 0.5 10^3/ul (0-0.8); ABS Neutrophils 7.1 10^3/ul (1.5-7.7); ABS Nucleated RBC 0 10^3/ul; Hematocrit 44 % (42-52); Hemoglobin 14.5 g/dl (14.0-18.0); Lymphocyte % 11.2 %; Mean Corpuscular HGB Conc 33 g/dl (31-36); Mean Corpuscular Hemoglobin 29 pg (27-31); Mean Corpuscular Volume 86 fL (80-94); Nucleated Red Blood Cells % 0; Platelet Count 171 10^3/ul (150-450); Red Blood Count 5.08 10^6/ul (4.00-5.40); Red Cell Distribution Width 16 % (10.5-15); White Blood Count 8.7 10^3/ul (3.5-10.8)
[2018-05-07 15:42] LABS: Activated Partial Thrombo Time 33.6 seconds (26.0-36.3); INR 1.06 (0.77-1.02)
[2018-05-07 15:50] LABS: Albumin 4.1 g/dL (3.2-5.2); Albumin/Globulin Ratio 1.9 (1-3); BUN/Creatinine Ratio 18.4 (8-20); Calcium 9.3 mg/dL (8.6-10.3); EGFR Non-African American 96.7 (>60); Globulin 2.2 g/dL (2-4); Magnesium 1.9 mg/dL (1.9-2.7); Potassium 4.5 mmol/L (3.5-5.0); Total Bilirubin 0.5 mg/dL (0.2-1.0); Total Protein 6.3 g/dL (6.4-8.9)
[2018-05-07 15:52] LABS: Troponin I 0.01 ng/mL (<0.04)
[2018-05-07 15:54] LABS: CKMB ng/mL 1.4 ng/mL (0.6-6.3)
[2018-05-07] MEDS ORDERED: Ketorolac INJ* 30 MG/ML 1 ML VIAL IV PUSH ONE (16:04)
[2018-05-07 16:33] LABS: TSH (Thyroid Stimulating Horm) 1.42 mcIU/mL (0.34-5.60)
[2018-05-07 19:04] VITALS: BP 118/69
== END 2018-05-07 19:04 | disposition home or self-care (01) ==
LOC: ED 14:30
DX: R07.89 Other chest pain (principal); R06.02 Shortness of breath; E11.9 Type 2 diabetes mellitus without complications; Z79.4 Long term (current) use of insulin; Z79.84 Long term (current) use of oral hypoglycemic drugs; I10 Essential (primary) hypertension; Z88.6 Allergy status to analgesic agent; Z88.8 Allergy status to other drugs, medicaments and biological substances; Z91.048 Other nonmedicinal substance allergy status
CPT/HCPCS: 36415; 71045; 80053; 82550; 82553; 83605; 83735; 83880; 84443; 84484; 85025; 85610; 85730; 93005; 96374; 99283; A9270-GY; J1885

== ENCOUNTER 2018-05-21 13:13 | Emergency (ER) | payer MEDICARE ==
[2018-05-21 13:35] VITALS: BP 119/73
--- NOTE | 2018-05-21 13:43 | UC ---
Respiratory Complaint HPI - HPI Summary HPI Summary: 43-year-old male with history of asthma, diabetes, and obstructive sleep apnea presents with 5 day history of harsh nonproductive cough, mild shortness of breath, and wheezing. Associated with some mild nasal congestion and runny nose. Denies fever, chills, ear pain, sore throat, chest pain, abdominal pain, nausea, vomiting, or diarrhea. - History of Current Complaint Chief Complaint: UCRespiratory Stated Complaint: COUGH Time Seen by Provider: 05/21/18 13:28 Hx Obtained From: Patient Pain Intensity: 0 - Allergies/Home Medications Allergies/Adverse Reactions: Allergies Allergy/AdvReac Type Severity Reaction Status Date / Time dextromethorphan Allergy Nausea Verified 05/21/18 13:30 [From Mucinex DM] guaifenesin [From Mucinex DM] Allergy Nausea Verified 05/21/18 13:30 ibuprofen [From Motrin] Allergy rash/kidneys Verified 05/21/18 13:30 shut down orange oil Allergy hives Uncoded 05/21/18 13:30 diff breathing PMH/Surg Hx/FS Hx/Imm Hx - Additional Past Medical History Additional PMH: Gout Endocrine History: Diabetes Cardiovascular History: Hypertension Respiratory History: Asthma, Other - NILES Psychological History: Depression - Surgical History Surgical History: Yes Surgery Procedure, Year, and Place: RIGHT WRIST FRACTURE, SCREWS PLACED. - Family History Known Family History: Positive: Hypertension, Diabetes, Other - cancer Negative: Cardiac Disease - Social History Occupation: Disabled Lives: With Family Alcohol Use: None Substance Use Type: None Smoking Status (MU): Never Smoked Tobacco - Immunization History Most Recent Influenza Vaccination: Fall 2015 Most Recent Tetanus Shot: unknown Most Recent Pneumonia Vaccination: last year Review of Systems All Other Systems Reviewed And Are Negative: Yes Constitutional: Negative: Fever, Chills Skin: Negative: Rash Eyes: Negative: Drainage, Eye Redness ENT: Positive: Nasal Discharge, Sinus Congestion. Negative: Sore Throat, Ear Ache, Sinus Pain/Tenderness Respiratory: Positive: Shortness Of Breath, Cough, Other - Wheezing Cardiovascular: Negative: Palpitations, Chest Pain Gastrointestinal: Negative: Abdominal Pain, Vomiting, Diarrhea, Nausea Genitourinary: Positive: Negative Neurovascular: Positive: Negative Musculoskeletal: Positive: Negative Is Patient Immunocompromised?: No Physical Exam - Summary Physical Exam Summary: GENERAL APPEARANCE: Well developed, obese, alert and cooperative, and appears to be in no acute distress. EYES: Conjunctiva clear. No drainage. Vision is grossly intact. EARS: External auditory canals and tympanic membranes clear, hearing grossly intact. NOSE: Mild nasal congestion with clear discharge. THROAT: Pharynx normal. No tonsilar inflammation, swelling, exudate, or lesions. Uvula midline. Oral cavity normal. Teeth and gingiva in good general condition. NECK: Neck supple, non-tender without lymphadenopathy. CARDIAC: Normal S1 and S2. No S3, S4 or murmurs. Rhythm is regular. There is no peripheral edema, cyanosis or pallor. Extremities are warm and well perfused. Capillary refill is less than 2 seconds. Peripheral pulses intact. LUNGS: Mild bilateral wheezing. Bronchospastic, non-productive cough. ABDOMEN: Positive bowel sounds. Soft, nondistended, nontender. No guarding or rebound. No masses or hepatosplenomegally. MUSKULOSKELETAL: ROM intact to all extremities. No joint erythema or tenderness. Normal muscular development. Normal gait. SKIN: Skin normal color, texture and turgor with no lesions or eruptions. Triage Information Reviewed: Yes Vital Signs: Initial Vital Signs Temp 97.1 F 05/21/18 13:31 Pulse 81 05/21/18 13:31 Resp 22 05/21/18 13:31 BP 119/73 05/21/18 13:31 Pulse Ox 95 05/21/18 13:31 Vital Signs Reviewed: Yes Respiratory Course/Dx - Course Course Of Treatment: 43-year-old male with history of asthma, diabetes, and obstructive sleep apnea presents with 5 day history of harsh nonproductive cough, mild shortness of breath, and wheezing. Associated with some mild nasal congestion and runny nose. Denies fever, chills, ear pain, sore throat, chest pain, abdominal pain, nausea, vomiting, or diarrhea. Afebrile. Vital signs stable. Exam remarkable for mild nasal congestion, clear nasal discharge, mild bilateral wheezing, and a harsh bronchospastic cough. Will treat for an acute bronchitis with asthma exacerbation. I will treat him with a course of azithromycin and place him on prednisone 50 mg daily 5 days. He is to follow-up with his primary care provider in 3 days for recheck symptoms. Despite our guidance and warning symptoms reviewed with the patient. Verbalizes understanding and agrees with plan of care. - Differential Dx/Diagnosis Differential Diagnosis/HQI/PQRI: Asthma, Bronchitis, Influenza, Lower Resp Infection Provider Diagnosis: Acute bronchitis, Asthma exacerbation Discharge - Sign-Out/Discharge Documenting (check all that apply): Patient Departure All imaging exams completed and their final reports reviewed: No Studies - Discharge Plan Condition: Stable Disposition: HOME Prescriptions: Azithromyxin WICHO (NF) [Z-Wicho (Zithromax) 250 mg tabs #6] 2 tab PO .TODAY, THEN 1 DAILY #6 tab predniSONE TAB* [Deltasone TAB*] 50 mg PO DAILY #5 tab Patient Education Materials: Asthma (ED), Acute Bronchitis (ED) Referrals: Lise Davis MD [Primary Care Provider] - 3 Days (Follow up in 3-5 days for recheck of symptoms.) Additional Instructions: Your history and exam are consistent with acute bronchitis with asthma exacerbation. Start azithromycin 2 tabs today then 1 tab a day for next 4 days to treat the infection. Start prednisone 50 mg daily for the next 5 days to help with the wheezing and shortness of breath. Continue to use your inhalers as directed. Get plenty of rest. Drink plenty of fluids. Run a cool mist humidifer in your room at night. Take over the counter acetaminophen (Tylenol) or ibuprofen (Advil, Motrin) according to directions as needed for pain or fever. Follow up with your primary care provider in 3-5 days. Seek immediate medical attention in the emergency room if you have fever greater than 100.5 F despite taking acetaminophen or ibuprofen, have chest pain , difficulty breathing, or have any worsening of symptoms. - Billing Disposition and Condition Condition: STABLE Disposition: Home
== END 2018-05-21 13:54 | disposition home or self-care (01) ==
LOC: UCCORT 13:13
DX: J20.9 Acute bronchitis, unspecified (principal); J45.901 Unspecified asthma with (acute) exacerbation; E11.9 Type 2 diabetes mellitus without complications; I10 Essential (primary) hypertension; Z88.8 Allergy status to other drugs, medicaments and biological substances; Z91.018 Allergy to other foods
CPT/HCPCS: 99212; G0463

== ENCOUNTER 2018-06-15 09:32 | Emergency (ER) | payer MEDICARE ==
[2018-06-15] MEDS ORDERED: Ketorolac INJ* 30 MG/ML 1 ML VIAL IV PUSH ONE (10:02)
[2018-06-15] MEDS ORDERED: LORazepam INJ* 2 MG/ML 1 ML VIAL IV ONE (10:02)
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
[2018-06-15 12:38] VITALS: BP 114/80
== END 2018-06-15 12:37 | disposition home or self-care (01) ==
LOC: ED 09:32
DX: S39.012A Strain of muscle, fascia and tendon of lower back, initial encounter (principal); E11.9 Type 2 diabetes mellitus without complications; I10 Essential (primary) hypertension; G47.30 Sleep apnea, unspecified; F32.9 Major depressive disorder, single episode, unspecified; X58.XXXA Exposure to other specified factors, initial encounter; Y92.9 Unspecified place or not applicable
CPT/HCPCS: 96374; 96375; 99283; J1885; J2060

== ENCOUNTER 2018-09-20 09:45 | Inpatient (IN) | payer MEDICARE ==
--- NOTE | 2018-09-20 10:44 | ED ---
Dizziness - HPI Summary HPI Summary: A 43 y/o male presents to [facility] with a chief complaint of dizziness for the past 3 days. He denies any ear ringing, fevers, chills, headaches, N/V or CP, but reports some SOB. Standing up aggravates his dizziness. He currently denies any pain, rating his pain as a 0/10 in severity. He reports a Hx of DM and HTN. He He denies any Hx of blood clots, cardiac disease or stroke. He denies smoking , EtOH use or drugs. He denies a SHx. He says that he is supposed to be on Trulicity but is not because of insurance purposes. - History Of Current Complaint Chief Complaint: EDGeneral Stated Complaint: NOT FEELING WELL PER PATIENT Time Seen by Provider: 09/20/18 10:35 Hx Obtained From: Patient Onset/Duration: Still Present, Suddenly Timing: Days Severity Initially: Severe Severity Currently: Severe Character: Dizzy Aggravating Factor(s): Other - standing up Alleviating Factor(s): Nothing Associated Signs And Symptoms: Positive: SOB. Negative: Nausea, Vomiting, Chest Pain, Fever, Chills - Allergies/Home Medications Allergies/Adverse Reactions: Allergies Allergy/AdvReac Type Severity Reaction Status Date / Time dextromethorphan Allergy Nausea Verified 09/20/18 10:06 [From Mucinex DM] guaifenesin [From Mucinex DM] Allergy Nausea Verified 09/20/18 10:06 ibuprofen [From Motrin] Allergy rash/kidneys Verified 09/20/18 10:06 shut down orange oil Allergy hives Uncoded 09/20/18 10:06 diff breathing PMH/Surg Hx/FS Hx/Imm Hx Endocrine/Hematology History: Reports: Hx Diabetes Denies: Hx Thyroid Disease Cardiovascular History: Reports: Hx Hypertension Respiratory History: Reports: Hx Asthma, Hx Sleep Apnea - uses cpap Denies: Hx Chronic Obstructive Pulmonary Disease (COPD) GI History: Denies: Hx Ulcer History: Reports: Other Problems/Disorders - kidney "issues" when he takes ibuprofen Denies: Hx Renal Disease Musculoskeletal History: Reports: Hx Gout Sensory History: Reports: Hx Contacts or Glasses - glasses Denies: Hx Hearing Aid Opthamlomology History: Reports: Hx Contacts or Glasses - glasses Psychiatric History: Reports: Hx Depression - Cancer History Cancer Type, Location and Year: none - Surgical History Surgery Procedure, Year, and Place: RIGHT WRIST FRACTURE, SCREWS PLACED. Hx Anesthesia Reactions: No - Immunization History Date of Tetanus Vaccine: UNKNOWN Infectious Disease History: No Infectious Disease History: Denies: Hx Hepatitis, Hx Human Immunodeficiency Virus (HIV), Traveled Outside the [place] in Last 30 Days - Family History Known Family History: Positive: Hypertension, Diabetes, Other - cancer Negative: Cardiac Disease - Social History Alcohol Use: None Hx Substance Use: No Substance Use Type: Reports: None Hx Tobacco Use: No Smoking Status (MU): Never Smoked Tobacco Review of Systems Negative: Fever, Chills Negative: Ear Ache Negative: Chest Pain Positive: Shortness Of Breath Negative: Vomiting, Nausea Neurological: Other - positive: dizziness Negative: Headache All Other Systems Reviewed And Are Negative: Yes Physical Exam - Summary Physical Exam Summary: GENERAL: Patient is a well-developed and nourished M who is lying comfortable in the stretcher. Patient is not in any acute respiratory distress. HEAD AND FACE: Normocephalic EYES: PERRLA, EOMI x 2. EARS: Hearing grossly intact. MOUTH: Oropharynx within normal limits. NECK: Supple, trachea is midline, no adenopathy, no JVD, no carotid bruit. CHEST: Symmetric, no tenderness at palpation LUNGS: Clear to auscultation bilaterally. No wheezing or crackles. CVS: Regular rate and rhythm, S1 and S2 present, no murmurs or gallops appreciated. ABDOMEN: Soft, non-tender. Bowel sounds are normal. No abnormal abdominal pulsations. EXTREMITIES: Full ROM in all major joints, no edema, no cyanosis or clubbing. NEURO: Alert and oriented x 3. No acute neurological deficits. Speech is normal and follows commands. SKIN: erythema with focal warmness to the right posterior calf area. Triage Information Reviewed: Yes Vital Signs On Initial Exam: Initial Vitals Temp Pulse Resp BP Pulse Ox 99.2 F 90 18 131/89 94 09/20/18 10:03 09/20/18 10:03 09/20/18 10:03 09/20/18 10:03 09/20/18 10:03 Vital Signs Reviewed: Yes - [place] Coma Scale Best Eye Response: 4 - Spontaneous Best Motor Response: 6 - Obeys Commands Best Verbal Response: 5 - Oriented Coma Scale Total: 15 Diagnostics - Vital Signs Vital Signs Temp Pulse Resp BP Pulse Ox 09/20/18 10:03 99.2 F 90 18 131/89 94 - Laboratory Result Diagrams: 09/20/18 10:45 09/20/18 14:23 Lab Statement: Any lab studies that have been ordered have been reviewed, and results considered in the medical decision making process. - Radiology CXR Radiology Interpretation Completed By: Radiologist Summary of Radiographic Findings: NO EVIDENCE FOR ACTIVE CARDIOPULMONARY DISEASE. ED physician has reviewed this imaging report. - CT Brain CT Interpretation Completed By: Radiologist Summary of CT Findings: NO EVIDENCE FOR GROSS ACUTE INFARCT, MASS EFFECT OR HEMORRHAGE. ED physician has reviewed this imaging report. - EKG 10:45 Cardiac Rate: NL - 95 bpm EKG Rhythm: Sinus Rhythm Summary of EKG Findings: EKG at 10:45 showed NSR at 95 bpm, prolonged QT, inverted T waves in anterior leads with ST depression. Re-Evaluation - Re-Evaluation First Eval Re-Evaluation Time: 11:41 Change: Unchanged Comment: Discussed results and plan for admission. Dizzy Course/Dx - Course Course Of Treatment: A 43 y/o male presents to [facility] with a chief complaint of dizziness for the past 3 days. The physical exam revealed erythema with focal warmness to the right posterior calf area. EKG at 10:45 showed NSR at 95 bpm, prolonged QT, inverted T waves in anterior leads with ST depression. Brain CT impression: NO EVIDENCE FOR GROSS ACUTE INFARCT, MASS EFFECT OR HEMORRHAGE. CXR impression: NO EVIDENCE FOR ACTIVE CARDIOPULMONARY DISEASE. Blood work and chemistries obtained. Troponin of 0.06 at 10:45. In the ED course the patient was given Magnesium Sulfate IVPB, Meclizine PO, and Sodium Chloride IV. Dx: Diziness, rule out ACS. The patient will be admitted. Case discussed with hospitalist, Dr. Kearns. I discussed results with patient. The patient agrees with this plan - Diagnoses Provider Diagnoses: Dizziness - Provider Notifications Discussed Care Of Patient With: Linnea Kearns Time Discussed With Above Provider: 11:56 Instructed by Provider To: Admit As Inpatient Discharge - Sign-Out/Discharge Documenting (check all that apply): Patient Departure - admit Patient Received Moderate/Deep Sedation with Procedure: No - Discharge Plan Condition: Fair Disposition: ADMITTED TO [facility] - Billing Disposition and Condition Condition: FAIR Disposition: Admitted to [facility] - Attestation Statements Document Initiated by Scribe: Yes Documenting Scribe: Sundar Morin Provider For Whom Scribe is Documenting (Include Credential): Shawn Washington MD Scribe Attestation: I, Sundar Morin, scribed for Shawn Washington MD on 09/20/18 at 1612. Scribe Documentation Reviewed: Yes Provider Attestation: The documentation as recorded by the solangeibeSundar accurately reflects the service I personally performed and the decisions made by me, Evelyne Washington MD Status of Scribe Document: Viewed
[2018-09-20] MEDS ORDERED: NS 0.9% 1000 ML** 1,000 ML IV ONE (10:49)
[2018-09-20] MEDS ORDERED: Meclizine TAB* 12.5 MG PO ONE (10:50)
[2018-09-20 10:58] LABS: ABS Basophils 0.1 10^3/ul (0-0.2); ABS Lymphocytes 0.8 10^3/ul (1.0-4.8); ABS Monocytes 0.7 10^3/ul (0-0.8); ABS Neutrophils 9.2 10^3/ul (1.5-7.7); Eosinophil % 0.1 %; Hematocrit 43 % (42-52); Hemoglobin 14.8 g/dL (14.0-18.0); Lymphocyte % 7.3 %; Mean Corpuscular HGB Conc 35 g/dL (31-36); Mean Corpuscular Hemoglobin 29 pg (27-31); Mean Corpuscular Volume 84 fL (80-94); Mean Platelet Volume 8.2 fL (7.4-10.4); Platelet Count 122 10^3/uL (150-450); Red Cell Distribution Width 15 % (10-15); White Blood Count 10.8 10^3/uL (3.5-10.8)
[2018-09-20 11:21] LABS: INR 1.34 (0.82-1.09)
[2018-09-20 11:22] LABS: Activated Partial Thrombo Time 40.1 seconds (26.0-38.0); Troponin I 0.06 ng/mL (<0.04)
[2018-09-20 11:24] LABS: Albumin 3.8 g/dL (3.2-5.2); Albumin/Globulin Ratio 1.6 (1-3); BUN/Creatinine Ratio 13.2 (8-20); Calcium 8.7 mg/dL (8.6-10.3); EGFR African American 111.1 (>60); EGFR Non-African American 91.8 (>60); Globulin 2.4 g/dL (2-4); Magnesium 1.6 mg/dL (1.9-2.7); Potassium 4.4 mmol/L (3.5-5.0); Total Bilirubin 1.1 mg/dL (0.2-1.0); Total Protein 6.2 g/dL (6.4-8.9)
[2018-09-20 11:29] LABS: CRP High Sensitivity 156.16 mg/L (<2.00)
[2018-09-20 11:36] LABS: TSH (Thyroid Stimulating Horm) 0.67 mcIU/mL (0.34-5.60)
[2018-09-20] MEDS ORDERED: Magnesium Sulfate IV* 0.5 GM/ML 2 ML VIAL (1 GM) IVPB ONE (11:36)
[2018-09-20] MEDS ORDERED: Aspirin 81 mg CHEW TAB* 81 MG TAB.CHEW PO ONE (11:39)
[2018-09-20] MEDS ORDERED: Aspirin TAB* 325 MG PO ONE (11:54)
[2018-09-20] MEDS ORDERED: MAGNESIUM SULFATE IV 1 GM - ED ONCE IVPB ONE (12:00)
[2018-09-20] MEDS ORDERED: Magnesium Sulfate 2 GM IV* 2 GM/50 ML BAG IVPB ONE (13:17)
[2018-09-20] MEDS ORDERED: Albuterol HFA INHALER* 8 gm MDI INH PRN (13:40)
[2018-09-20] MEDS: Acetaminophen TAB* 325 MG PO PRN (14:17)
[2018-09-20 14:50] LABS: ALT 12 U/L (7-52); AST 11 U/L (13-39); Albumin 3.5 g/dL (3.2-5.2); Albumin/Globulin Ratio 1.5 (1-3); Alkaline Phosphatase 37 U/L (34-104); Anion Gap 10 mmol/L (2-11); BUN/Creatinine Ratio 14.6 (8-20); Blood Urea Nitrogen 12 mg/dL (6-24); CO2 Carbon Dioxide 19 mmol/L (22-32); Calcium 8.2 mg/dL (8.6-10.3); Chloride 101 mmol/L (101-111); EGFR African American 125.3 (>60); EGFR Non-African American 103.5 (>60); Globulin 2.3 g/dL (2-4); Glucose 252 mg/dL (70-100); Potassium 4.3 mmol/L (3.5-5.0); Sodium 130 mmol/L (135-145); Total Protein 5.8 g/dL (6.4-8.9)
[2018-09-20 14:56] LABS: Troponin I 0.07 ng/mL (<0.04)
--- NOTE | 2018-09-20 15:12 | HP ---
CC: Dr. Lise Davis * HISTORY AND PHYSICAL: DATE OF ADMISSION: 09/20/18 PRIMARY CARE PROVIDER: Dr. Lise Davis. ATTENDING PHYSICIAN: Dr. Linnea Breen * (dictated by PHYLLIS Gordon). CHIEF COMPLAINT: 1. Dizziness. 2. Shortness of breath. 3. Dry heaves. 4. Right leg pain. HISTORY OF PRESENT ILLNESS: Mr. Urbina is a 43-year-old male with a past medical history of diabetes mellitus, hypertension, asthma, obstructive sleep apnea and obesity, who presented to the ER today with generalized complaints of dizziness, shortness of breath, dry heaves, and right leg pain times approximately 3 days. He notes that dizziness is constant and is worsened with walking and head movement. He notes that it is better when he lays down and does not move. He denies lightheadedness, presyncope, syncope. He was given a dose of meclizine in the ER and he notes that this was not helpful. He describes dizziness as a sensation that the room is spinning. He has no associated diaphoresis or chest pain. The patient also complains of shortness of breath with associated chills and sweats. He denies cough or fever. He notes that shortness of breath is only with activity, but it worsened today and he notes that he has shortness of breath even when he stands up. In addition, he has dry heaves for the last 3 days that have worsened today. He notes that he has had approximately 5 bouts of dry heaves today; prior to that, he was having 2 to 3 per day. He notes that the last time he ate was approximately 3 days ago where he had chicken at 7 p.m. He has had no food since then. He has been trying to push fluids and he notes that he has been drinking unsweetened iced tea and water. He denies abdominal pain, nausea, vomiting, diarrhea. He denies hematemesis, melena, hematochezia. He notes that he has had dry heaves, but this has not led to emesis. The patient also complains of right calf tenderness for the last 3 days. He does note that approximately 1 week ago he had a callus removed from the bottom of his right foot. He was supposed to have followup yesterday, but was unable to attend due to feeling ill. He has been managing the wound as prescribed and has no pain associated with the wound. He does have right calf tenderness that he has had for approximately 3 days. He denies recent travel, recent trauma to the area. He denies exposure to illnesses. He denies headache, vision changes, numbness, tingling, changes in ADLs, although he does note that he has not been eating and has felt weak. He notes no changes in urine output. No retention, dysuria, or hematuria. He denies pain anywhere except for the calf. He complains of malaise, fatigue, increased sleeping, and generalized weakness without changes in ambulation. It is important to note that the patient has been out of a number of his home medications for "months." These medications include Ventolin, Advair, quinapril , glimepiride, and Trulicity. While in the emergency room, the patient received a full workup, which included blood work revealing a glucose of 288, platelets of 122, magnesium of 1.6. He is noted to have an elevated CRP of 156. Troponins are positive x1 at 0.06. ECG reveals normal sinus rhythm with a rate of [address] depression in V2, V3, V4. These appear mildly changed from previous ECG. Chest x-ray and CT of the head are within normal limits. The patient received aspirin 325 mg, meclizine 50, 1 L IV fluid bolus, 2 g of magnesium. The hospitalist team was asked to evaluate the patient for admission. PAST MEDICAL HISTORY: 1. Diabetes mellitus. 2. Hypertension. 3. Obesity, BMI 59.3. 4. Asthma. 5. Obstructive sleep apnea. The patient uses CPAP. 6. Gout. 7. Depression. PAST SURGICAL HISTORY: Right wrist. HOME MEDICATIONS: 1. Albuterol 2 puffs inhalation q.4 hours p.r.n. 2. Allopurinol 200 mg p.o. b.i.d. 3. Aripiprazole 5 mg p.o. at bedtime. 4. Bupropion XL 450 mg p.o. q.a.m. 5. Dulaglutide 1.5 mg injection subcu weekly. 6. Fluticasone/salmeterol 500/50 one puff inhalation b.i.d. 7. Glimepiride 4 mg p.o. b.i.d. 8. Insulin glargine 40 units subcu q a.m., 65 units q.p.m. 9. Loratadine 10 mg p.o. daily. 10. Lorazepam 1 mg p.o. q.6 hours p.r.n. pain, MDD 4. 11. Metformin 1000 mg p.o. b.i.d. 12. Mirtazapine 15 mg p.o. at bedtime. 13. Quinapril 20 mg p.o. daily. DRUG ALLERGIES: MUCINEX DM, nausea; IBUPROFEN, rash, ASIA; ORANGE OIL, hives, difficulty breathing. FAMILY HISTORY: Mother had heart murmur, heart failure. Father was healthy. Maternal grandmother had diabetes and cancer. Maternal grandmother, colon cancer. Paternal grandfather, diabetes. Negative family history for CVA. SOCIAL HISTORY: The patient denies current and former use of tobacco products. He never drinks alcohol. He denies use of any other drugs. 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 He lives at home with his mom, and 1 stepson. He has 1 other stepson outside of the house. In the event that he is unable to make his own medical decisions, he has appointed his , Alida Urbina and his mother, Tracy Judd, to be his surrogate decision makers. REVIEW OF SYSTEMS: A 10-point review of systems was performed and all the pertinent positives and negatives are in the HPI. All other systems are negative. PHYSICAL EXAMINATION GENERAL: Mr. Urbina is a well-developed, well-nourished, obese, 43-year-old white male, who is lying flat in a recliner. He appears lethargic, but is awake throughout our conversation and answers questions appropriately. He appears acutely ill. VITAL SIGNS: Temperature 99.2 temporal, heart rate 91, respiratory rate 27, oxygen saturation 93% on room air, blood pressure 126/75. HEENT: Visual fernandez grossly intact. PERRL. EOMI without nystagmus. Nonicteric sclerae. Hearing grossly intact. The oral mucous membranes are moist. There are no lesions. Pharynx is clear. RESPIRATORY: Symmetrical chest expansion without use of accessory muscles. Lungs are clear to auscultation. Breath sounds are noted to be decreased throughout due to body habitus. There are no rhonchi, wheezes, or rubs. CARDIOVASCULAR: Regular rate and rhythm with S1, S2 present without murmurs, rubs, clicks, or gallops. There is no JVD. There is no peripheral edema. Radial and pedal pulses are strong and palpable. ABDOMEN: Obese. Bowel sounds in all quadrants. The abdomen is flat. There is no tenderness to deep and light palpation. MUSCULOSKELETAL: Full range of motion without pain or deformities. EXTREMITIES: No clubbing, cyanosis. The patient has equal strength in upper and lower extremities, but does appear to be weak. The right medial lower extremity posterior to the knee is erythematous and warm. This area has been demarcated with a marker. The patient has a right foot callus that is postop times approximately 1 week. It is healing well. There is no erythema, no discharge. There is no tenderness to palpation. The right calf is tender to palpation with negative Homans sign. NEURO: The patient is awake. He is alert and oriented x3. Cranial nerves are grossly intact. He is able to move all his extremities. His motor strength is equal, but appears to be weak. DIAGNOSTIC STUDIES/LAB DATA: Platelets 122. Sodium 129, chloride 99, carbon dioxide 19, glucose 282, lactic acid 1.4, magnesium 1.6. Total bilirubin 1.10. Troponin 0.06. CRP 156.16. BNP 352. TSH 0.67. ECG with a rate of 95, normal sinus rhythm. There is ST depression in V2, V3, V4. Chest x-ray, impression: No evidence for acute cardiopulmonary disease. CT of the head, impression: No evidence for gross acute infarct, mass effect, or hemorrhage. ASSESSMENT AND PLAN: Mr. Urbina is a 43-year-old male with a past medical history of diabetes, hypertension, obstructive sleep apnea, obesity, asthma, who presented to the ER today with generalized symptoms of dizziness, shortness of breath, weakness, as well as dry heaves and right leg pain. He was found to have an elevated CRP, an elevated troponin, ECG changes. The patient will be admitted inpatient for: 1. Generalized malaise. The patient comes in with complaints of dizziness that sounds similar to vertigo, but does not respond to meclizine. He also complains of shortness of breath, dry heaves, and right leg pain posteriorly. He is noted to have an area of erythema distal to the right medial knee. This area has been marked with a marker. He will be placed on cefazolin for possible cellulitis and the area will continue to be monitored. In concerns to his weakness and general malaise, this could be contributing. The elevated CRP certainly hints at an infection. His magnesium was low, which could also contribute to weakness and malaise. This has been repleted. TSH is within normal limits. We will check a B12. Physical therapy and occupational therapy have been ordered. 2. Elevated troponin, ECG changes. The patient has a mild elevation in troponin with ST depressions in V2, V3, V4. He denies chest pain, but does admit to shortness of breath. An echo has been ordered for this. There is a mild elevation in BNP. Dr. Finch has been consulted for further recommendations. 3. Right calf pain. The patient has had approximately 3 days of right calf pain. He also has had associated shortness of breath for the same amount of time. His D- dimer is less than 200, so suspicion for pulmonary embolism is lowered, but threshold for getting a CTA of the chest is also low. An ultrasound of the right lower extremity has been ordered to assess for deep venous thrombosis. 4. Hypomagnesemia. The patient comes with symptoms of generalized malaise and weakness. His magnesium is 1.6. He has received 2 g IV magnesium in the ER. He will receive another 2g IV magnesium at admission. We will recheck his level in the morning. 5. Diabetes mellitus. The patient will continue Lantus with a decrease in a.m. dose to 40, p.m. dose to 50 units. We will hold his glimepiride and metformin. We will place him on a.c. fingersticks and a.c. lispro sliding scale. 6. Hypertension. The patient is on Lasix 40 p.o. daily. We will continue this medication while in the hospital. 7. Asthma. Continue home inhalers. 8. Obstructive sleep apnea. The patient uses CPAP at home. We will continue while in the hospital. 9. Obesity, BMI 59 noted. 10. FEN: The patient has been placed on heart-healthy diet. No IV fluids at this time. 11. DVT prophylaxis: According to the DVT Risk Assessment, the patient scores 2, placing him at moderate risk. He will be started on heparin. 12. Code status: Full code. TIME SPENT: Approximately 60 minutes was spent on this admission, greater than half that time was spent with the patient and his obtaining history, performing physical, and reviewing the plan of care. The case has been reviewed with my attending, Dr. Breen, who is in agreement with the plan of care. PHYLLIS MATHEWS [id number]/[id number] #: [id number] TAVO
[2018-09-20] MEDS: ceFAZolin 1 GM ADVAN(*) 1 GM in NS 0.9% 50 ML* 50 ML IVPB SCH ×2 (16:25→21:28)
[2018-09-20] MEDS: Heparin VIAL(*) 5000 UNITS/ML VIAL (FIVE THOUSAND) SUBCUT SCH ×2 (16:27→21:28)
[2018-09-20] MEDS ORDERED: Perflutren Lipid Microsphere* 3 ML VIAL ONE (16:41)
[2018-09-20] MEDS ORDERED: Dextrose 50% VIAL 50 ml IV PUSH PRN (17:18)
[2018-09-20 17:47] LABS: Troponin I 0.07 ng/mL (<0.04)
[2018-09-20] MEDS ORDERED: Insulin GLARGINE(*) 1 UNITS UNIT SUBCUT SCH (18:00)
--- NOTE | 2018-09-20 18:04 | ECHO ---
*[facility]* [place] [address] Fax #: [phone] Transthoracic Echocardiogram Patient: Trae Urbina : 1975 Study Date: 09/20/2018 Age: 43 Gender: M HR: 89 bpm Height: 68 in /172.7 cm BSA: 2.74 m^2 Weight: 399.2 lb /181.4 kg BMI: 60.8 kg/m^2 *Dairy Worker: Yudelka Doyle [facility] *Referring Physician: * Ban AlcalaReading Physician: * Becki Finch MD Indications: SOB. Abnormal EKG. History: Functional status: Sleep apnea. Risk factors: Hypertension. Diabetes mellitus. Morbidly obese. Conclusions Summary: - Procedure narrative: Image quality was suboptimal. Intravenous Definity administered. - Left ventricle: The cavity size is normal. Wall thickness is moderately increased. Systolic function is hyperdynamic. The estimated ejection fraction is 65-70%. - Right ventricle: The cavity size is mildly to moderately dilated. Systolic function is moderately reduced, possibly greater, the base moves well on long axis views, all other views appear severely hypokinetic. - Ventricular septum: There is septal flattening of the interventricular septum consistent with RV volume or pressure overload. - Right atrium: The atrium is moderately dilated. - Aortic valve: The leaflets are mildly thickened. There is trace regurgitation. - Tricuspid valve: There is trace regurgitation. - Pulmonic valve: There is mild to moderate regurgitation. - Pulmonary arteries: Systolic pressure is moderately to severely increased. The peak pressure during systole by Doppler is 54.0 mm Hg. - No prior echocardiogram to compare. Study data: Transthoracic echocardiogram. Procedure: Transthoracic echocardiography was performed. Image quality was suboptimal. Intravenous Definity , 3 mlswas administered. Complete 2D, spectral Doppler, and color flow Doppler. Location: Bedside. Patient status: Inpatient. Patient room number: 432. Rhythm: Normal sinus rhythm. Findings Left ventricle: The cavity size is normal. Wall thickness is moderately increased. Systolic function is hyperdynamic. The estimated ejection fraction is 65-70%. Wall motion is normal; there are no regional wall motion abnormalities. There is no consistent Doppler evidence of clinically significant diastolic dysfunction. Right ventricle: The cavity size is mildly to moderately dilated. Systolic function is moderately reduced, possibly greater, the base moves well on long axis views, all other views appear severely hypokinetic. Ventricular septum: There is septal flattening of the interventricular septum consistent with RV volume or pressure overload. Left atrium: The atrium is normal in size. Right atrium: The atrium is moderately dilated. Mitral valve: The leaflets are normal thickness. There is no evidence of stenosis. There is no significant regurgitation. Aortic valve: The leaflets are mildly thickened. There is no evidence of stenosis. There is trace regurgitation. Tricuspid valve: The leaflets are normal thickness. There is no evidence of stenosis. There is trace regurgitation. Pulmonic valve: The leaflets are normal thickness. There is no evidence of stenosis. There is mild to moderate regurgitation. Aorta: The aortic root appears normal. The aortic arch appears normal. Pericardium: There is no significant pericardial effusion. Pulmonary arteries: Not well visualized. Systolic pressure is moderately to severely increased. Systemic veins: Inferior vena cava: The vessel is dilated. There is (< 50%) respiratory change in the IVC dimension. Measurements Left ventricle Value Ref Aortic valve continued Value Ref RADHA, LAX (L) 4.1 cm 4.2 - 5.8 Peak v, S 1.61 m/sec ----- ESD, LAX 3.4 cm 2.5 - 4.0 VTI, S 24.3 cm ----- FS, LAX (L) 18 % 25 - 43 Mean grad, S 5.0 mm Hg ----- PW, ED, LAX (H) 1.4 cm 0.6 - 1.0 Peak grad, S 10.0 mm Hg ----- EF (L) 38 % 52 - 72 E', lat miah, TDI 11.2 cm/sec >=10.0 Mitral valve Value R ef E/e', lat miah, 6 Peak E 0.66 m/sec ---- - TDI Peak A 0.52 m/sec ----- E', med miah, TDI 7.5 cm/sec >=7.0 Decel time 177 ms - ---- E/e', med miah, 9 Peak E/A ratio 1.3 ---- - TDI E', avg, TDI 9.4 cm/sec Pulmonic valve Value Ref E/e', avg, TDI 7 <=14 Peak v, S 0.73 m/sec - ---- Peak grad, S 2.0 mm Hg ----- LVOT Value Ref Peak arlene, S 1.33 m/sec Tricuspid valve Value Ref Peak grad, S 7 mm Hg TR peak v (H) 3.2 m/sec <=2.8 Mean grad, S 4 mm Hg Peak RV-RA grad, S 41 mm Hg ----- Ventricular septum Value Ref Aortic root Value Ref IVS, ED (H) 1.8 cm 0.6 - 1.0 Root diam 3.2 cm <4.7 Right ventricle Value Ref Ascending aorta Value Ref RADHA, LAX 3.4 cm AAo AP diam, S 3.1 cm ----- RADHA minor ax, A4C (H) 4.0 cm 1.9 - 3.5 mid Aortic arch Value Ref Pressure, S 56 mm Hg Arch diam 3.1 cm ----- Left atrium Value Ref Decending aorta Value Ref AP dim, ES 3.80 cm 3.00 - Chauncey peak arlene 0.7 m/sec ----- 4.00 ML dim, A4C 4.2 cm Pulmonary artery Value Ref SI dim, A4C 5.3 cm Pressure, S 54.0 mm Hg ----- Right atrium Value Ref Inferior vena cava Value Ref SI dim, ES (H) 6.5 cm 3.4 - 5.3 Diam 2.5 cm ----- Estimated RAP 15 mm Hg Aortic valve Value Ref Miah diam, ED 2.3 cm Legend: (L) and (H) deb values outside specified reference range. Prepared and electronically signed by Becki Finch MD 09/20/2018 18:04
[2018-09-20] MEDS ORDERED: Iodixanol* (CONTRAST) 320 MG/ML 100 ML SDV IV ONE (19:13)
[2018-09-20] MEDS: Mometasone/Formoter 200/5 MDI INH SCH (19:47)
--- NOTE | 2018-09-20 20:54 | CONS ---
CC: Dr. Lise Davis; Hospitalist Service * CARDIOLOGY CONSULTATION REPORT: DATE OF CONSULT: 09/20/18 REASON FOR CONSULT: Elevated troponins. The patient's chief complaint is headache and dizziness. HISTORY OF PRESENT ILLNESS: The patient is a 43-year-old gentleman with several chronic medical issues including super morbid obesity, type 2 diabetes, obstructive sleep apnea, and hypertension. The patient states that he was feeling pretty well until Tuesday. He got what he said was dizziness, but on further questioning, it sounds like it is vertigo with the sensation of the room spinning. It does feel better when he lies down and stays still. The patient denies any awareness of palpitations or racing of the heart, chest pain, pressure, heaviness or neck, jaw, arm discomfort. He denies any associated diaphoresis. He has had increased shortness of breath and some dry heaves. The patient tells me he was recently treated for cellulitis and one of his legs has been a bit hard again. He denies any earaches, sore throat, coughing, no production of sputum. He denies hematuria or dysuria and no constipation or diarrhea. The calf tenderness he has had for about 3 days on the right is noted. He denies any recent travel. 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 He has had significant headache and he points across the frontal part of his head both sides. He denies any recent [id number]-tywraga medications. The only prescription medications he had were, for his recent cellulitis, antibiotics and he cannot remember what it was. PAST MEDICAL HISTORY: The patient has a past medical history of: 1. Super morbid obesity. 2. Diabetes. 3. Hypertension. 4. Obstructive sleep apnea, on CPAP. 5. Asthma. 6. Gout. PAST SURGICAL HISTORY: Includes right wrist surgery. MEDICATIONS: Outpatient medications include: 1. Albuterol inhaler. 2. Allopurinol 200 mg b.i.d. 3. Aripiprazole 5 mg q.h.s. 4. Bupropion XL 450 mg a day. 5. Dulaglutide 1.5 mg injection subcu weekly. 6. Fluticasone/salmeterol 500/50 one puff b.i.d. 7. Glimepiride 4 mg b.i.d. 8. Glargine insulin 65 units q.p.m. 9. Loratadine 10 mg a day. 10. Lorazepam p.r.n. 11. Metformin 1000 mg b.i.d. 12. Mirtazapine 15 mg p.o. q.h.s. 13. Quinapril 20 mg a day. ALLERGIES: Allergies and intolerance include MUCINEX DM, IBUPROFEN, ORANGE OIL. FAMILY HISTORY: Significant in that his mother has bowel problem and heart failure. He denies heart history in his family. Family history is positive for diabetes as well. 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 Does not drink alcohol, smokes cigarettes, or use recreational drugs. He is and his was present. REVIEW OF SYSTEMS: Ten-point review of systems was performed, pertinent positives and negatives are in the history of present illness. PHYSICAL EXAMINATION: On exam, the patient is 5 feet 8 inches, weighs 398 pounds with a BMI of 60.5. Vitals on arrival to the emergency room, blood pressure 139/89, pulse was 90; at the time I saw him, blood pressure 112/77, pulse is 91 and regular, oxygen saturation 94, respiratory rate 23. General Appearance: Very obese, middle-aged gentleman lying about 30 degrees, appearing a bit uncomfortable, clearly trying not to move. Psychologically, pleasant and cooperative. Neurologically, awake, alert and oriented to person, place and time. Grossly normal sensory and motor function in the upper and lower extremities on that exam. Skin was warm and dry. Evidence of chronic venous stasis in the lower extremities and an area of mild patchy erythema on the right lower extremity, medially below the knee. Lips and nail beds appeared pink. HEENT: Mucous membranes were moist. Neck very thick without appreciable lymphadenopathy or thyromegaly, palpable carotid pulses without bruits. Breath sounds were clear laterally, because of headache, I did not have him sit up and clear anteriorly. Coronary: Distant S1 and S2 regular without murmurs or rubs appreciated. Abdomen: Very overweight, active bowel sounds. It was not unusually distended beyond obesity. Lower extremities were thick from obesity, but additionally showed 2 to 3+ pitting edema on both legs. DIAGNOSTIC STUDIES/LAB DATA: White count 10.8, hematocrit 43, platelets 122. INR 1.34, PTT 40, D-dimer less than 200. VBG; pH 7.48, pCO2 of 27, pO2 of 60. Sodium 129, potassium 4.4, chloride 99, bicarb 19, BUN 12, creatinine 0.91, glucose 282, magnesium 1.6. Bilirubin 1.1, AST 11, ALT 14, alk phos 41. Troponin 0.06 #1, 0.07 #2, 0.07 #3. C-reactive protein 156, BNP of 352. Total protein 6.2, albumin 3.8. TSH 0.67. A 12-lead ECG today shows normal sinus rhythm, 95 beats a minute, QRS axis +30, normal AV and IV conduction times. He has inverted T-waves across the precordial leads, flattened T-waves across the lateral leads I and aVL and nonspecific ST changes at 95 beats per minute. When this EKG is compared with an EKG from 05/07/18, the rates are a bit slower and there is exaggeration in baseline ST changes, but nothing brand new. Venous Doppler done today was negative for DVT, but body habitus limited evaluation. Brain CT done today was negative for acute infract or hemorrhage. Chest x-ray done today showed no evidence of acute cardiopulmonary disease. Transthoracic echo done today showed a hyperdynamic left ventricle, enlarged and hypokinetic right ventricle, mild to moderate pulmonic insufficiency, elevated PA pressure of 54 mmHg, ventricular septal flattening consistent with RV overload. IMPRESSION: In summary, Trae Urbina is a 43-year-old male who presented with weakness, vertigo, headaches, nausea, dry heaves, found to have a markedly elevated C-reactive protein, possible recurrence of cellulitis in the right lower extremity, but to-date no other infectious etiologies found. His echo is very abnormal with right-sided abnormalities including the right ventricular hypokinesis, right atrial enlargement and significant pulmonary hypertension. The patient's troponins are mildly elevated. The patient has atherosclerotic risks of obesity, diabetes, hypertension. I do not have his lipids at this point. With the patient's elevated troponins, the differential would include coronary artery disease, large vessel or small vessel with demand ischemia. It would also include right-sided heart strain, possibly from a pulmonary embolus or chronic pulmonary problems from his sleep apnea. He is at risk for AFib, which could lead to a bump in trops and the above symptoms as well. For the patient's vertigo, there would be a differential of labyrinthitis, benign positional vertigo, but this patient could also have had a paradoxical embolism, cerebellar stroke that might not show up on CT scan this soon. For followup on the patient's abnormal echo, even with the normal D-dimer consider getting a CT angiogram to rule in or out a pulmonary embolus or look at other pulmonary pathology. For the patient's headache, low bicarb, may want to consider getting an arterial blood gas to evaluate his acid-base status to look for CO2 retention and ensure there is no hypoxemia that was missed on exam that could be contributing to his symptoms. For the patient's troponinemia, in addition to the above, the patient is at high risk for underlying atherosclerotic heart disease and non-urgently a stress test could be obtained, but I have a low risk that his presentation is related to acute large vessel ischemia. Additionally, the patient's body habitus and chronically abnormal ECG puts him at risk for false positive or negative testing, interpretation will be difficult. I would recommend ordering lipid panel or getting one from [facility] for more complete risk stratification for CAD. I would look into the etiology of his elevated C-reactive protein as is being done with mcmullen-cultures and he may want to additionally ensure there is not any underlying inflammatory or connective tissue disorder if an infection is not found. I would replete the patient's magnesium and look into the etiology of his hyponatremia, the hyponatremia could also be contributing to the patient's headaches and metabolic stress. It may be worth placing the patient on a heparin drip as he is at risk for deep vein thrombosis and coronary artery disease while undergoing workup of the above as central nervous system bleed has been ruled out. If there is no evidence of a pulmonary embolism and the right-sided findings are related to chronic cor pulmonale from his body habitus and sleep apnea, then optimizing his pulmonary status will be important to minimize the stress on the right heart and he may want to consider a pulmonary consultation. Additional recommendations will be made pending the patient's clinical course and response to the above therapy. Thank you for allowing me to assist in this nice, but complex gentleman's care. [id number]/CPS #: [id number] MTDD
[2018-09-20] MEDS: Insulin LISPRO* 1 UNITS UNIT SUBCUT SCH (21:28)
[2018-09-20] MEDS: Insulin GLARGINE(*) 1 UNITS UNIT SUBCUT SCH (21:28)
[2018-09-20] MEDS: Allopurinol TAB* 100 MG PO SCH (21:29)
[2018-09-20] MEDS: Nystatin TOP POWDER* 15 GM BTL TOPICAL SCH (21:29)
[2018-09-20] MEDS: Mirtazapine TAB* 15 MG PO SCH (21:29)
[2018-09-20] MEDS: ARIPiprazole TAB* 5 MG PO SCH (21:29)
[2018-09-21] MEDS: ceFAZolin 1 GM ADVAN(*) 1 GM in NS 0.9% 50 ML* 50 ML IVPB SCH ×4 (03:04→21:37)
[2018-09-21] MEDS: Heparin VIAL(*) 5000 UNITS/ML VIAL (FIVE THOUSAND) SUBCUT SCH ×3 (05:32→21:33)
[2018-09-21 06:27] LABS: ABS Lymphocytes 0.7 10^3/ul (1.0-4.8); ABS Monocytes 0.6 10^3/ul (0-0.8); ABS Neutrophils 5.8 10^3/ul (1.5-7.7); Eosinophil % 0.3 %; Hematocrit 39 % (42-52); Lymphocyte % 9.5 %; Mean Corpuscular HGB Conc 34 g/dL (31-36); Mean Corpuscular Hemoglobin 28 pg (27-31); Mean Corpuscular Volume 84 fL (80-94); Mean Platelet Volume 8.5 fL (7.4-10.4); Nucleated Red Blood Cells % 0.1; Platelet Count 105 10^3/uL (150-450); Red Blood Count 4.61 10^6 /uL (4.18-5.48); Red Cell Distribution Width 15 % (10-15); White Blood Count 7.1 10^3/uL (3.5-10.8)
[2018-09-21] MEDS: Mometasone/Formoter 200/5 MDI INH SCH ×2 (08:45→19:11)
[2018-09-21] MEDS: Insulin GLARGINE(*) 1 UNITS UNIT SUBCUT SCH ×2 (08:59→21:35)
[2018-09-21] MEDS ORDERED: Lisinopril TAB* 10 MG PO SCH (09:00)
[2018-09-21] MEDS: Acetaminophen TAB* 325 MG PO PRN (09:01)
[2018-09-21] MEDS: Allopurinol TAB* 100 MG PO SCH ×2 (09:01→22:12)
[2018-09-21] MEDS: BuPROPion XL* 300 MG TAB.XL PO SCH (09:02)
[2018-09-21] MEDS: Furosemide TAB* 40 MG PO SCH (09:02)
[2018-09-21] MEDS: Insulin LISPRO* 1 UNITS UNIT SUBCUT SCH ×4 (10:05→22:13)
[2018-09-21] MEDS: Nystatin TOP POWDER* 15 GM BTL TOPICAL SCH ×2 (10:42→22:16)
--- NOTE | 2018-09-21 12:08 | PN ---
Subjective Date of Service: 09/21/18 Interval History: Patient continues to complain of dizziness since admission. He has no chest pain. RLE is painful. He answers question with yes or no, no elaboration. Family History: Unchanged from Admission Social History: Unchanged from Admission Past Medical History: Unchanged from Admission Objective Active Medications: Acetaminophen (Tylenol Tab*) 650 mg PO Q4H PRN PRN Reason: FEVER/PAIN Last Admin: 09/21/18 09:01 Dose: 650 mg Albuterol (Ventolin Hfa Inhaler*) 2 puff INH Q4H PRN PRN Reason: SOB/WHEEZING Allopurinol (Zyloprim Tab*) 200 mg PO BID [facility] Last Admin: 09/21/18 09:01 Dose: 200 mg Aripiprazole (Abilify Tab*) 5 mg PO BEDTIME [facility] Last Admin: 09/20/18 21:29 Dose: 5 mg Bupropion HCl (Bupropion Xl*) 300 mg PO DAILY [facility] Last Admin: 09/21/18 09:02 Dose: 300 mg Cetirizine HCl (Zyrtec*) 10 mg PO BEDTIME [facility] Dextrose (Dextrose 50% Vial 50 Ml*) 25 ml IV PUSH .FOR FS < 60 - SS PRN PRN Reason: FS < 60 Furosemide (Lasix Tab*) 40 mg PO DAILY [facility] Last Admin: 09/21/18 09:02 Dose: 40 mg Heparin Sodium (Porcine) (Heparin Vial(*)) 5,000 units SUBCUT Q8HR [facility] Last Admin: 09/21/18 05:32 Dose: 5,000 units Cefazolin Sodium 1 gm/ Sodium (Chloride) 50 mls @ 200 mls/hr IVPB Q6H [facility] Last Admin: 09/21/18 08:54 Dose: 200 mls/hr Insulin Glargine (Lantus(*)) 40 units SUBCUT QAM [facility] Last Admin: 09/21/18 08:59 Dose: 40 units Insulin Glargine (Lantus(*)) 50 units SUBCUT 2100 [facility] Last Admin: 09/20/18 21:28 Dose: 50 units Insulin Human Lispro (Humalog*) 0 units SUBCUT ACHS [facility]; Protocol Last Admin: 09/21/18 11:45 Dose: 9 units Lisinopril (Prinivil Tab*) 10 mg PO DAILY [facility]; Protocol Mirtazapine (Remeron Tab*) 15 mg PO BEDTIME [facility] Last Admin: 09/20/18 21:29 Dose: 15 mg Mometasone Furoate/Formoterol Fumar (Dulera 200/5 Mdi*) 2 puff INH BID [facility] Last Admin: 09/21/18 08:45 Dose: 2 puff Nystatin (Nystatin Top Powder*) 1 applic TOPICAL BID [facility] Last Admin: 09/21/18 10:42 Dose: 1 applic Vital Signs - 8 hr 09/21/18 09/21/18 09/21/18 07:40 07:44 08:00 Temperature 36.8 C Pulse Rate 79 Respiratory 20 19 19 Rate Blood Pressure 133/72 (mmHg) O2 Sat by Pulse 97 Oximetry 09/21/18 09/21/18 08:47 11:32 Temperature 36.6 C Pulse Rate 84 74 Respiratory 16 19 Rate Blood Pressure 102/58 (mmHg) O2 Sat by Pulse 97 96 Oximetry Oxygen Devices in Use Now: None Appearance: alert, no distress, obese Eyes: No Scleral Icterus Ears/Nose/Mouth/Throat: Clear Oropharnyx Neck: NL Appearance and Movements; NL JVP Respiratory: Symmetrical Chest Expansion and Respiratory Effort, Clear to Auscultation Cardiovascular: NL Sounds; No Murmurs; No JVD, RRR Abdominal: NL Sounds; No Tenderness; No Distention Extremities: - - bilateral 1+ edema, chronic venous stasis, 3x5 cm erythematous area medial RT knee/upper yates, tender Neurological: Alert and Oriented x 3 Lines/Tubes/Other Access: Clean, Dry and Intact Peripheral IV Nutrition: Taking PO's Result Diagrams: 09/21/18 05:55 09/20/18 14:23 Additional Lab and Data: Laboratory Tests 09/20/18 09/20/18 09/21/18 17:27 19:44 07:28 POC Glucose (mg/dL) 110 H 316 H 103 H 09/21/18 11:28 POC Glucose (mg/dL) 271 H Assess/Plan/Problems-Billing Assessment: 43 year old man w/ diabetes, admitted w/ non-specific symptoms, elevated CRP and troponin, cellulitis in RLE - Patient Problems (1) cellulitis/abscess Current Visit: No Status: Acute Priority: High Comment: -Acute cellulitis in setting of chronic venous stasis, RLE -Continue Cefazolin, elevation -DVT ruled out by doppler (2) Dizziness Current Visit: Yes Status: Acute Priority: Medium Code(s): R42 - DIZZINESS AND GIDDINESS SNOMED Code(s): 074592691 Comment: -Orthostatics are positive -Will cut back dose of lisinopril (3) Elevated troponin I level Current Visit: Yes Status: Acute Priority: Medium Code(s): R74.8 - ABNORMAL LEVELS OF OTHER SERUM ENZYMES SNOMED Code(s): 378336215 Comment: -Cardiology consult appreciated -Will pursue stress testing with knowledge of false (+) and (-) -Right ventricular findings consistent with cor pulmonale due to obesity/ hypoventilation (4) Type 2 diabetes mellitus Current Visit: Yes Status: Acute Priority: Medium Comment: -Glucose under reasonable control -Continue present management (5) DVT prophylaxis Current Visit: No Status: Acute Priority: Low Code(s): KRH7029 - SNOMED Code(s): 094459025 Comment: - subQ Heparin Status and Disposition: inpatient
[2018-09-21 19:56] LABS: Urine Appearance Clear; Urine Bacteria Absent (Absent); Urine Bilirubin Negative (Negative); Urine Blood Negative (Negative); Urine Color Yellow; Urine Glucose 3+(>=500 mg/dL) (Negative); Urine Ketones Trace (Negative); Urine Nitrite Negative (Negative); Urine Protein 2+(100 mg/dL) (Negative); Urine Red Blood Cell Trace(0-2/hpf) (Absent); Urine Specific Gravity 1.021 (1.010-1.030); Urine Urobilinogen Negative (Negative); Urine White Blood Cell Absent (Absent)
[2018-09-21] MEDS: ARIPiprazole TAB* 5 MG PO SCH (21:59)
[2018-09-21] MEDS: Mirtazapine TAB* 15 MG PO SCH (22:01)
[2018-09-21] MEDS: Cetirizine* 10 MG TAB PO SCH (22:12)
[2018-09-22] MEDS: ceFAZolin 1 GM ADVAN(*) 1 GM in NS 0.9% 50 ML* 50 ML IVPB SCH ×4 (03:06→21:27)
[2018-09-22] MEDS: Heparin VIAL(*) 5000 UNITS/ML VIAL (FIVE THOUSAND) SUBCUT SCH ×3 (05:37→21:36)
[2018-09-22] MEDS: Lisinopril TAB* 10 MG PO SCH (08:44)
[2018-09-22] MEDS: Allopurinol TAB* 100 MG PO SCH ×2 (08:45→21:20)
[2018-09-22] MEDS: Furosemide TAB* 40 MG PO SCH (08:45)
[2018-09-22] MEDS: BuPROPion XL* 300 MG TAB.XL PO SCH (08:45)
[2018-09-22] MEDS: Insulin LISPRO* 1 UNITS UNIT SUBCUT SCH ×4 (08:46→21:22)
[2018-09-22] MEDS: Insulin GLARGINE(*) 1 UNITS UNIT SUBCUT SCH ×2 (08:46→21:33)
[2018-09-22] MEDS: Nystatin TOP POWDER* 15 GM BTL TOPICAL SCH ×2 (09:02→21:34)
--- NOTE | 2018-09-22 10:20 | PN ---
Subjective Date of Service: 09/22/18 Interval History: No chest pain, continues to have dizziness- room spinning sensation. No shortness of breath Family History: Unchanged from Admission Social History: Unchanged from Admission Past Medical History: Unchanged from Admission Objective Active Medications: Acetaminophen (Tylenol Tab*) 650 mg PO Q4H PRN PRN Reason: FEVER/PAIN Last Admin: 09/21/18 09:01 Dose: 650 mg Albuterol (Ventolin Hfa Inhaler*) 2 puff INH Q4H PRN PRN Reason: SOB/WHEEZING Allopurinol (Zyloprim Tab*) 200 mg PO BID [facility] Last Admin: 09/22/18 08:45 Dose: 200 mg Aripiprazole (Abilify Tab*) 5 mg PO BEDTIME [facility] Last Admin: 09/21/18 21:59 Dose: 5 mg Bupropion HCl (Bupropion Xl*) 300 mg PO DAILY [facility] Last Admin: 09/22/18 08:45 Dose: 300 mg Cetirizine HCl (Zyrtec*) 10 mg PO BEDTIME [facility] Last Admin: 09/21/18 22:12 Dose: 10 mg Dextrose (Dextrose 50% Vial 50 Ml*) 25 ml IV PUSH .FOR FS < 60 - SS PRN PRN Reason: FS < 60 Furosemide (Lasix Tab*) 40 mg PO DAILY [facility] Last Admin: 09/22/18 08:45 Dose: 40 mg Heparin Sodium (Porcine) (Heparin Vial(*)) 5,000 units SUBCUT Q8HR [facility] Last Admin: 09/22/18 05:37 Dose: 5,000 units Cefazolin Sodium 1 gm/ Sodium (Chloride) 50 mls @ 200 mls/hr IVPB Q6H [facility] Last Admin: 09/22/18 08:47 Dose: 200 mls/hr Insulin Glargine (Lantus(*)) 40 units SUBCUT QAM [facility] Last Admin: 09/22/18 08:46 Dose: 40 units Insulin Glargine (Lantus(*)) 50 units SUBCUT 2100 [facility] Last Admin: 09/21/18 21:35 Dose: 50 units Insulin Human Lispro (Humalog*) 0 units SUBCUT ACHS [facility]; Protocol Last Admin: 09/22/18 08:46 Dose: 3 units Lisinopril (Prinivil Tab*) 10 mg PO DAILY [facility]; Protocol Last Admin: 09/22/18 08:44 Dose: 10 mg Mirtazapine (Remeron Tab*) 15 mg PO BEDTIME [facility] Last Admin: 09/21/18 22:01 Dose: 15 mg Mometasone Furoate/Formoterol Fumar (Dulera 200/5 Mdi*) 2 puff INH BID [facility] Last Admin: 09/21/18 19:11 Dose: 2 puff Nystatin (Nystatin Top Powder*) 1 applic TOPICAL BID [facility] Last Admin: 09/22/18 09:02 Dose: 1 applic Vital Signs - 8 hr 09/22/18 09/22/18 03:39 08:00 Temperature 97.6 F Pulse Rate 69 Respiratory 18 20 Rate Blood Pressure 111/63 (mmHg) O2 Sat by Pulse 100 Oximetry Oxygen Devices in Use Now: None, CPAP Appearance: Obese male lying in bed, not in distress Respiratory: Symmetrical Chest Expansion and Respiratory Effort, Clear to Auscultation Cardiovascular: NL Sounds; No Murmurs; No JVD, RRR, - - no chest wall tendneress Abdominal: NL Sounds; No Tenderness; No Distention Neurological: Alert and Oriented x 3 Result Diagrams: 09/21/18 05:55 09/20/18 14:23 Additional Lab and Data: Laboratory Tests 09/20/18 09/20/18 09/21/18 17:27 19:44 07:28 POC Glucose (mg/dL) 110 H 316 H 103 H 09/21/18 11:28 POC Glucose (mg/dL) 271 H Microbiology and Other Data: Microbiology 09/20/18 17:14 Aerobic Blood Culture - Preliminary No Source Provided No Growth Day 1 Anaerobic Blood Culture - Preliminary No Growth Day 1 09/20/18 14:23 Aerobic Blood Culture - Preliminary No Source Provided No Growth Day 1 Anaerobic Blood Culture - Preliminary No Growth Day 1 Assess/Plan/Problems-Billing Assessment: 43 year old man w/ diabetes, admitted w/ non-specific symptoms, elevated CRP and troponin, cellulitis in RLE - Patient Problems (1) Dizziness Current Visit: Yes Status: Acute Priority: Medium Code(s): R42 - DIZZINESS AND GIDDINESS SNOMED Code(s): 283640161 Comment: -Orthostatics are positive Lisinopril dose reduced on 09/21/18 Will get an MRI (2) Elevated troponin I level Current Visit: Yes Status: Acute Priority: Medium Code(s): R74.8 - ABNORMAL LEVELS OF OTHER SERUM ENZYMES SNOMED Code(s): 015097642 Comment: -Cardiology consult appreciated stress test pending. -Right ventricular findings consistent with cor pulmonale due to obesity/ hypoventilation (3) Type 2 diabetes mellitus Current Visit: Yes Status: Acute Priority: Medium Comment: continue lantus (4) DVT prophylaxis Current Visit: No Status: Acute Priority: Low Code(s): [id number] - SNOMED Code(s): 624494523 Comment: - subQ Heparin (5) cellulitis/abscess Current Visit: No Status: Acute Priority: High Comment: -Acute cellulitis in setting of chronic venous stasis, RLE -Continue Cefazolin, elevation -DVT ruled out by doppler (6) Morbid obesity with BMI of 60.0-69.9, adult Current Visit: No Status: Chronic Code(s): E66.01 - MORBID (SEVERE) OBESITY DUE TO EXCESS CALORIES; Z68.44 - BODY MASS INDEX (BMI) 60.0-69.9, ADULT SNOMED Code(s): 627188774 (7) Sleep apnea Current Visit: No Status: Chronic Code(s): G47.30 - SLEEP APNEA, UNSPECIFIED SNOMED Code(s): 10897050 Comment: - Continue home C-PAP (8) Hyponatremia Current Visit: Yes Status: Acute Code(s): E87.1 - HYPO-OSMOLALITY AND HYPONATREMIA SNOMED Code(s): 88759753 Comment: repeat BMP tomorrow to re-assess Status and Disposition: inpatient
[2018-09-22] MEDS: Mometasone/Formoter 200/5 MDI INH SCH ×2 (10:43→19:06)
[2018-09-22] MEDS ORDERED: Regadenoson* 0.4 MG/5 ML SYRINGE ONE (12:36)
[2018-09-22] MEDS ORDERED: Aminophylline IV* 25 MG/ML 10 ML VIAL ONE (12:36)
[2018-09-22] MEDS: Cetirizine* 10 MG TAB PO SCH (21:22)
[2018-09-22] MEDS: Mirtazapine TAB* 15 MG PO SCH (21:30)
[2018-09-22] MEDS: ARIPiprazole TAB* 5 MG PO SCH (21:32)
[2018-09-23] MEDS: ceFAZolin 1 GM ADVAN(*) 1 GM in NS 0.9% 50 ML* 50 ML IVPB SCH ×4 (02:39→20:36)
[2018-09-23] MEDS: Heparin VIAL(*) 5000 UNITS/ML VIAL (FIVE THOUSAND) SUBCUT SCH ×3 (04:55→21:07)
[2018-09-23 07:13] LABS: BUN/Creatinine Ratio 11.6 (8-20); EGFR African American 152.9 (>60); EGFR Non-African American 126.4 (>60); HDL Cholesterol 18.6 mg/dL
[2018-09-23] MEDS: Mometasone/Formoter 200/5 MDI INH SCH ×2 (08:12→19:33)
[2018-09-23] MEDS: Lisinopril TAB* 10 MG PO SCH (09:02)
[2018-09-23] MEDS: Nystatin TOP POWDER* 15 GM BTL TOPICAL SCH ×2 (09:02→20:44)
[2018-09-23] MEDS: BuPROPion XL* 300 MG TAB.XL PO SCH (09:02)
[2018-09-23] MEDS: Allopurinol TAB* 100 MG PO SCH ×2 (09:02→20:43)
[2018-09-23] MEDS: Furosemide TAB* 40 MG PO SCH (09:03)
[2018-09-23] MEDS: Insulin LISPRO* 1 UNITS UNIT SUBCUT SCH ×4 (09:03→20:41)
[2018-09-23] MEDS: Insulin GLARGINE(*) 1 UNITS UNIT SUBCUT SCH ×2 (09:04→20:41)
[2018-09-23] MEDS: Acetaminophen TAB* 325 MG PO PRN (09:13)
--- NOTE | 2018-09-23 09:24 | PN ---
Subjective Date of Service: 09/23/18 Interval History: This morning patient reports feeling better. No chest pain Yesterday had MRI, and stress test. Family History: Unchanged from Admission Social History: Unchanged from Admission Past Medical History: Unchanged from Admission Objective Active Medications: Acetaminophen (Tylenol Tab*) 650 mg PO Q4H PRN PRN Reason: FEVER/PAIN Last Admin: 09/23/18 09:13 Dose: 650 mg Albuterol (Ventolin Hfa Inhaler*) 2 puff INH Q4H PRN PRN Reason: SOB/WHEEZING Allopurinol (Zyloprim Tab*) 200 mg PO BID [facility] Last Admin: 09/23/18 09:02 Dose: 200 mg Aripiprazole (Abilify Tab*) 5 mg PO BEDTIME [facility] Last Admin: 09/22/18 21:32 Dose: 5 mg Bupropion HCl (Bupropion Xl*) 300 mg PO DAILY [facility] Last Admin: 09/23/18 09:02 Dose: 300 mg Cetirizine HCl (Zyrtec*) 10 mg PO BEDTIME [facility] Last Admin: 09/22/18 21:22 Dose: 10 mg Dextrose (Dextrose 50% Vial 50 Ml*) 25 ml IV PUSH .FOR FS < 60 - SS PRN PRN Reason: FS < 60 Furosemide (Lasix Tab*) 40 mg PO DAILY [facility] Last Admin: 09/23/18 09:03 Dose: 40 mg Heparin Sodium (Porcine) (Heparin Vial(*)) 5,000 units SUBCUT Q8HR [facility] Last Admin: 09/23/18 04:55 Dose: 5,000 units Cefazolin Sodium 1 gm/ Sodium (Chloride) 50 mls @ 200 mls/hr IVPB Q6H [facility] Last Admin: 09/23/18 09:01 Dose: 200 mls/hr Insulin Glargine (Lantus(*)) 40 units SUBCUT QAM [facility] Last Admin: 09/23/18 09:04 Dose: 40 units Insulin Glargine (Lantus(*)) 50 units SUBCUT 2100 [facility] Last Admin: 09/22/18 21:33 Dose: 50 units Insulin Human Lispro (Humalog*) 0 units SUBCUT ACHS [facility]; Protocol Last Admin: 09/23/18 09:03 Dose: 2 units Lisinopril (Prinivil Tab*) 10 mg PO DAILY [facility]; Protocol Last Admin: 09/23/18 09:02 Dose: 10 mg Mirtazapine (Remeron Tab*) 15 mg PO BEDTIME [facility] Last Admin: 09/22/18 21:30 Dose: 15 mg Mometasone Furoate/Formoterol Fumar (Dulera 200/5 Mdi*) 2 puff INH BID [facility] Last Admin: 09/23/18 08:12 Dose: 2 puff Nystatin (Nystatin Top Powder*) 1 applic TOPICAL BID [facility] Last Admin: 09/23/18 09:02 Dose: 1 applic Vital Signs - 8 hr 09/23/18 09/23/18 03:50 08:13 Temperature 98.2 F Pulse Rate 62 66 Respiratory 20 20 Rate Blood Pressure 139/76 (mmHg) O2 Sat by Pulse 99 99 Oximetry Oxygen Devices in Use Now: None Appearance: Obese male lying in bed, not in distress Respiratory: Symmetrical Chest Expansion and Respiratory Effort, Clear to Auscultation Cardiovascular: NL Sounds; No Murmurs; No JVD, RRR Extremities: No Edema Neurological: Alert and Oriented x 3 Result Diagrams: 09/21/18 05:55 09/23/18 06:22 Additional Lab and Data: Laboratory Tests 09/20/18 09/20/18 09/21/18 17:27 19:44 07:28 POC Glucose (mg/dL) 110 H 316 H 103 H 09/21/18 11:28 POC Glucose (mg/dL) 271 H Microbiology and Other Data: Microbiology 09/20/18 17:14 Aerobic Blood Culture - Preliminary No Source Provided No Growth Day 1 Anaerobic Blood Culture - Preliminary No Growth Day 1 09/20/18 14:23 Aerobic Blood Culture - Preliminary No Source Provided No Growth Day 1 Anaerobic Blood Culture - Preliminary No Growth Day 1 Assess/Plan/Problems-Billing Assessment: 43 year old man w/ diabetes, admitted w/ non-specific symptoms, elevated CRP and troponin, cellulitis in RLE - Patient Problems (1) Dizziness Current Visit: Yes Status: Acute Priority: Medium Code(s): R42 - DIZZINESS AND GIDDINESS SNOMED Code(s): 607773280 Comment: -Orthostatics are positive Lisinopril dose reduced on 09/21/18 MRI is negative for acute pathology Reports dizziness is improved. (2) Elevated troponin I level Current Visit: Yes Status: Acute Priority: Medium Code(s): R74.8 - ABNORMAL LEVELS OF OTHER SERUM ENZYMES SNOMED Code(s): 547670264 Comment: -Cardiology consult appreciated intermediate nuclear stress planning for dobutamine echo on Tuesday -Right ventricular findings consistent with cor pulmonale due to obesity/ hypoventilation (3) Type 2 diabetes mellitus Current Visit: Yes Status: Acute Priority: Medium Comment: continue lantus (4) DVT prophylaxis Current Visit: No Status: Acute Priority: Low Code(s): [id number] - SNOMED Code(s): 847859380 Comment: - subQ Heparin (5) cellulitis/abscess Current Visit: No Status: Acute Priority: High Comment: -Acute cellulitis in setting of chronic venous stasis, RLE -Continue Cefazolin, elevation -DVT ruled out by doppler (6) Morbid obesity with BMI of 60.0-69.9, adult Current Visit: No Status: Chronic Code(s): E66.01 - MORBID (SEVERE) OBESITY DUE TO EXCESS CALORIES; Z68.44 - BODY MASS INDEX (BMI) 60.0-69.9, ADULT SNOMED Code(s): 913465328 (7) Sleep apnea Current Visit: No Status: Chronic Code(s): G47.30 - SLEEP APNEA, UNSPECIFIED SNOMED Code(s): 78334028 Comment: - Continue home C-PAP (8) Hyponatremia Current Visit: Yes Status: Acute Code(s): E87.1 - HYPO-OSMOLALITY AND HYPONATREMIA SNOMED Code(s): 39124279 Comment: improved. Status and Disposition: inpatient. Testing scheduled for 09/25.
[2018-09-23] MEDS: ARIPiprazole TAB* 5 MG PO SCH (20:43)
[2018-09-23] MEDS: Cetirizine* 10 MG TAB PO SCH (20:43)
[2018-09-23] MEDS: Mirtazapine TAB* 15 MG PO SCH (20:44)
[2018-09-24] MEDS: ceFAZolin 1 GM ADVAN(*) 1 GM in NS 0.9% 50 ML* 50 ML IVPB SCH ×4 (02:36→22:08)
[2018-09-24] MEDS: Heparin VIAL(*) 5000 UNITS/ML VIAL (FIVE THOUSAND) SUBCUT SCH ×3 (05:21→20:11)
[2018-09-24] MEDS: Mometasone/Formoter 200/5 MDI INH SCH ×2 (07:36→20:15)
[2018-09-24] MEDS: Insulin LISPRO* 1 UNITS UNIT SUBCUT SCH ×4 (07:47→20:13)
[2018-09-24] MEDS: Furosemide TAB* 40 MG PO SCH (08:11)
[2018-09-24] MEDS: Lisinopril TAB* 10 MG PO SCH (08:11)
[2018-09-24] MEDS: BuPROPion XL* 300 MG TAB.XL PO SCH (08:11)
[2018-09-24] MEDS: Allopurinol TAB* 100 MG PO SCH ×2 (08:11→20:01)
[2018-09-24] MEDS: Insulin GLARGINE(*) 1 UNITS UNIT SUBCUT SCH ×2 (08:11→20:13)
[2018-09-24] MEDS: Nystatin TOP POWDER* 15 GM BTL TOPICAL SCH ×2 (08:12→22:12)
--- NOTE | 2018-09-24 11:13 | PN ---
Subjective Date of Service: 09/24/18 Interval History: No acute issues overnight No longer having dizziness No chest pain, no shortness of breath. Family History: Unchanged from Admission Social History: Unchanged from Admission Past Medical History: Unchanged from Admission Objective Active Medications: Acetaminophen (Tylenol Tab*) 650 mg PO Q4H PRN PRN Reason: FEVER/PAIN Last Admin: 09/23/18 09:13 Dose: 650 mg Albuterol (Ventolin Hfa Inhaler*) 2 puff INH Q4H PRN PRN Reason: SOB/WHEEZING Allopurinol (Zyloprim Tab*) 200 mg PO BID [facility] Last Admin: 09/24/18 08:11 Dose: 200 mg Aripiprazole (Abilify Tab*) 5 mg PO BEDTIME [facility] Last Admin: 09/23/18 20:43 Dose: 5 mg Bupropion HCl (Bupropion Xl*) 300 mg PO DAILY [facility] Last Admin: 09/24/18 08:11 Dose: 300 mg Cetirizine HCl (Zyrtec*) 10 mg PO BEDTIME [facility] Last Admin: 09/23/18 20:43 Dose: 10 mg Dextrose (Dextrose 50% Vial 50 Ml*) 25 ml IV PUSH .FOR FS < 60 - SS PRN PRN Reason: FS < 60 Furosemide (Lasix Tab*) 40 mg PO DAILY [facility] Last Admin: 09/24/18 08:11 Dose: 40 mg Heparin Sodium (Porcine) (Heparin Vial(*)) 5,000 units SUBCUT Q8HR [facility] Last Admin: 09/24/18 05:21 Dose: 5,000 units Cefazolin Sodium 1 gm/ Sodium (Chloride) 50 mls @ 200 mls/hr IVPB Q6H [facility] Last Admin: 09/24/18 08:10 Dose: 200 mls/hr Insulin Glargine (Lantus(*)) 40 units SUBCUT QAM [facility] Last Admin: 09/24/18 08:11 Dose: 40 units Insulin Glargine (Lantus(*)) 50 units SUBCUT 2100 [facility] Last Admin: 09/23/18 20:41 Dose: 50 units Insulin Human Lispro (Humalog*) 0 units SUBCUT ACHS [facility]; Protocol Last Admin: 09/24/18 07:47 Dose: Not Given Lisinopril (Prinivil Tab*) 10 mg PO DAILY [facility]; Protocol Last Admin: 09/24/18 08:11 Dose: 10 mg Mirtazapine (Remeron Tab*) 15 mg PO BEDTIME [facility] Last Admin: 09/23/18 20:44 Dose: 15 mg Mometasone Furoate/Formoterol Fumar (Dulera 200/5 Mdi*) 2 puff INH BID [facility] Last Admin: 09/24/18 07:36 Dose: 2 puff Nystatin (Nystatin Top Powder*) 1 applic TOPICAL BID [facility] Last Admin: 09/24/18 08:12 Dose: 1 applic Vital Signs - 8 hr 09/24/18 09/24/18 09/24/18 03:18 07:34 07:37 Temperature 98.2 F 97.6 F Pulse Rate 70 69 67 Respiratory 20 17 16 Rate Blood Pressure 133/77 118/68 (mmHg) O2 Sat by Pulse 95 95 95 Oximetry Oxygen Devices in Use Now: None, CPAP Appearance: Lying in bed, obese male, w/ CPAP, in no distress Eyes: PERRLA Respiratory: Symmetrical Chest Expansion and Respiratory Effort, Clear to Auscultation Cardiovascular: NL Sounds; No Murmurs; No JVD, RRR Extremities: No Edema Skin: - - erythema has subsided at the right leg Neurological: Alert and Oriented x 3 Result Diagrams: 09/21/18 05:55 09/23/18 06:22 Additional Lab and Data: Laboratory Tests 09/20/18 09/20/18 09/21/18 17:27 19:44 07:28 POC Glucose (mg/dL) 110 H 316 H 103 H 09/21/18 11:28 POC Glucose (mg/dL) 271 H Microbiology and Other Data: Microbiology 09/20/18 17:14 Aerobic Blood Culture - Preliminary No Source Provided No Growth Day 1 Anaerobic Blood Culture - Preliminary No Growth Day 1 09/20/18 14:23 Aerobic Blood Culture - Preliminary No Source Provided No Growth Day 1 Anaerobic Blood Culture - Preliminary No Growth Day 1 Assess/Plan/Problems-Billing Assessment: 43 year old man w/ diabetes, admitted w/ non-specific symptoms, elevated CRP and troponin, cellulitis in RLE - Patient Problems (1) Dizziness Current Visit: Yes Status: Acute Priority: Medium Code(s): R42 - DIZZINESS AND GIDDINESS SNOMED Code(s): 200039496 Comment: -Orthostatics are positive Lisinopril dose reduced on 09/21/18 MRI is negative for acute pathology Reports dizziness is improved. (2) Elevated troponin I level Current Visit: Yes Status: Acute Priority: Medium Code(s): R74.8 - ABNORMAL LEVELS OF OTHER SERUM ENZYMES SNOMED Code(s): 098304616 Comment: -Cardiology consult appreciated intermediate nuclear stress planning for dobutamine echo on Tuesday -Right ventricular findings consistent with cor pulmonale due to obesity/ hypoventilation (3) Type 2 diabetes mellitus Current Visit: Yes Status: Acute Priority: Medium Comment: continue lantus (4) DVT prophylaxis Current Visit: No Status: Acute Priority: Low Code(s): [id number] - SNOMED Code(s): 451063379 Comment: - subQ Heparin (5) cellulitis/abscess Current Visit: No Status: Acute Priority: High Comment: -Acute cellulitis in setting of chronic venous stasis, RLE -Continue Cefazolin, elevation -DVT ruled out by doppler (6) Morbid obesity with BMI of 60.0-69.9, adult Current Visit: No Status: Chronic Code(s): E66.01 - MORBID (SEVERE) OBESITY DUE TO EXCESS CALORIES; Z68.44 - BODY MASS INDEX (BMI) 60.0-69.9, ADULT SNOMED Code(s): 981365185 (7) Sleep apnea Current Visit: No Status: Chronic Code(s): G47.30 - SLEEP APNEA, UNSPECIFIED SNOMED Code(s): 19993545 Comment: - Continue home C-PAP (8) Hyponatremia Current Visit: Yes Status: Acute Code(s): E87.1 - HYPO-OSMOLALITY AND HYPONATREMIA SNOMED Code(s): 57155331 Comment: improved. Status and Disposition: inpatient. Testing scheduled for 09/25.
[2018-09-24] MEDS: Cetirizine* 10 MG TAB PO SCH (20:01)
[2018-09-24] MEDS: Mirtazapine TAB* 15 MG PO SCH (20:01)
[2018-09-24] MEDS: ARIPiprazole TAB* 5 MG PO SCH (20:02)
[2018-09-25] MEDS: ceFAZolin 1 GM ADVAN(*) 1 GM in NS 0.9% 50 ML* 50 ML IVPB SCH ×2 (03:00→09:12)
[2018-09-25] MEDS: Heparin VIAL(*) 5000 UNITS/ML VIAL (FIVE THOUSAND) SUBCUT SCH ×2 (05:44→14:48)
[2018-09-25] MEDS: Mometasone/Formoter 200/5 MDI INH SCH (08:01)
[2018-09-25] MEDS: Insulin LISPRO* 1 UNITS UNIT SUBCUT SCH ×3 (09:05→17:09)
[2018-09-25] MEDS: BuPROPion XL* 300 MG TAB.XL PO SCH (09:12)
[2018-09-25] MEDS: Allopurinol TAB* 100 MG PO SCH (09:12)
[2018-09-25] MEDS: Insulin GLARGINE(*) 1 UNITS UNIT SUBCUT SCH (09:12)
[2018-09-25] MEDS: Lisinopril TAB* 10 MG PO SCH (09:12)
[2018-09-25] MEDS: Nystatin TOP POWDER* 15 GM BTL TOPICAL SCH (09:12)
[2018-09-25] MEDS: Furosemide TAB* 40 MG PO SCH (09:13)
--- NOTE | 2018-09-25 12:23 | PN ---
Subjective Date of Service: 09/25/18 Interval History: No acute issues today. Awaiting dobutamine ECHO. no chest pain, no palpitations. Family History: Unchanged from Admission Social History: Unchanged from Admission Past Medical History: Unchanged from Admission Objective Active Medications: Acetaminophen (Tylenol Tab*) 650 mg PO Q4H PRN PRN Reason: FEVER/PAIN Last Admin: 09/23/18 09:13 Dose: 650 mg Albuterol (Ventolin Hfa Inhaler*) 2 puff INH Q4H PRN PRN Reason: SOB/WHEEZING Allopurinol (Zyloprim Tab*) 200 mg PO BID [facility] Last Admin: 09/25/18 09:12 Dose: 200 mg Aripiprazole (Abilify Tab*) 5 mg PO BEDTIME [facility] Last Admin: 09/24/18 20:02 Dose: 5 mg Bupropion HCl (Bupropion Xl*) 300 mg PO DAILY [facility] Last Admin: 09/25/18 09:12 Dose: 300 mg Cetirizine HCl (Zyrtec*) 10 mg PO BEDTIME [facility] Last Admin: 09/24/18 20:01 Dose: 10 mg Dextrose (Dextrose 50% Vial 50 Ml*) 25 ml IV PUSH .FOR FS < 60 - SS PRN PRN Reason: FS < 60 Furosemide (Lasix Tab*) 40 mg PO DAILY [facility] Last Admin: 09/25/18 09:13 Dose: 40 mg Heparin Sodium (Porcine) (Heparin Vial(*)) 5,000 units SUBCUT Q8HR [facility] Last Admin: 09/25/18 05:44 Dose: 5,000 units Cefazolin Sodium 1 gm/ Sodium (Chloride) 50 mls @ 200 mls/hr IVPB Q6H [facility] Last Admin: 09/25/18 09:12 Dose: 200 mls/hr Dextrose/Sodium Chloride (D5w 1/2 Ns 1000 Ml Bag*) 1,000 mls @ 100 mls/hr IV PER RATE [facility] Insulin Glargine (Lantus(*)) 40 units SUBCUT QAM [facility] Last Admin: 09/25/18 09:12 Dose: 40 units Insulin Glargine (Lantus(*)) 50 units SUBCUT 2100 [facility] Last Admin: 09/24/18 20:13 Dose: 50 units Insulin Human Lispro (Humalog*) 0 units SUBCUT ACHS [facility]; Protocol Last Admin: 09/25/18 11:46 Dose: Not Given Lisinopril (Prinivil Tab*) 10 mg PO DAILY [facility]; Protocol Last Admin: 09/25/18 09:12 Dose: 10 mg Mirtazapine (Remeron Tab*) 15 mg PO BEDTIME [facility] Last Admin: 09/24/18 20:01 Dose: 15 mg Mometasone Furoate/Formoterol Fumar (Dulera 200/5 Mdi*) 2 puff INH BID [facility] Last Admin: 09/25/18 08:01 Dose: Not Given Nystatin (Nystatin Top Powder*) 1 applic TOPICAL BID [facility] Last Admin: 09/25/18 09:12 Dose: 1 applic Vital Signs - 8 hr 09/25/18 09/25/18 09/25/18 07:35 08:00 11:05 Temperature 97.4 F 97.6 F Pulse Rate 69 67 Respiratory 16 18 18 Rate Blood Pressure 124/71 120/66 (mmHg) O2 Sat by Pulse 97 97 Oximetry Oxygen Devices in Use Now: CPAP Appearance: Sitting on bed, not in distress Eyes: PERRLA Ears/Nose/Mouth/Throat: Mucous Membranes Moist Respiratory: Symmetrical Chest Expansion and Respiratory Effort, Clear to Auscultation Cardiovascular: NL Sounds; No Murmurs; No JVD, RRR Abdominal: NL Sounds; No Tenderness; No Distention, No Hepatosplenomegaly Extremities: - - trace lower extremity edema Skin: - - right leg- rash improved. Neurological: Alert and Oriented x 3 Result Diagrams: 09/21/18 05:55 09/23/18 06:22 Additional Lab and Data: Laboratory Tests 09/20/18 09/20/18 09/21/18 17:27 19:44 07:28 POC Glucose (mg/dL) 110 H 316 H 103 H 09/21/18 11:28 POC Glucose (mg/dL) 271 H Microbiology and Other Data: Microbiology 09/20/18 17:14 Aerobic Blood Culture - Preliminary No Source Provided No Growth Day 1 Anaerobic Blood Culture - Preliminary No Growth Day 1 09/20/18 14:23 Aerobic Blood Culture - Preliminary No Source Provided No Growth Day 1 Anaerobic Blood Culture - Preliminary No Growth Day 1 Assess/Plan/Problems-Billing Assessment: 43 year old man w/ diabetes, admitted w/ non-specific symptoms, elevated CRP and troponin, cellulitis in RLE - Patient Problems (1) Dizziness Current Visit: Yes Status: Acute Priority: Medium Code(s): R42 - DIZZINESS AND GIDDINESS SNOMED Code(s): 429658266 Comment: -Orthostatics are positive Lisinopril dose reduced on 09/21/18 MRI is negative for acute pathology Reports dizziness is improved. (2) Elevated troponin I level Current Visit: Yes Status: Acute Priority: Medium Code(s): R74.8 - ABNORMAL LEVELS OF OTHER SERUM ENZYMES SNOMED Code(s): 106560745 Comment: -Cardiology consult appreciated intermediate nuclear stress planning for dobutamine echo today -Right ventricular findings consistent with cor pulmonale due to obesity/ hypoventilation (3) Type 2 diabetes mellitus Current Visit: Yes Status: Acute Priority: Medium Comment: continue lantus (4) DVT prophylaxis Current Visit: No Status: Acute Priority: Low Code(s): [id number] - SNOMED Code(s): 455638969 Comment: - subQ Heparin (5) cellulitis/abscess Current Visit: No Status: Acute Priority: High Comment: -Acute cellulitis in setting of chronic venous stasis, RLE -Continue Cefazolin, elevation -DVT ruled out by doppler (6) Morbid obesity with BMI of 60.0-69.9, adult Current Visit: No Status: Chronic Code(s): E66.01 - MORBID (SEVERE) OBESITY DUE TO EXCESS CALORIES; Z68.44 - BODY MASS INDEX (BMI) 60.0-69.9, ADULT SNOMED Code(s): 052932233 (7) Sleep apnea Current Visit: No Status: Chronic Code(s): G47.30 - SLEEP APNEA, UNSPECIFIED SNOMED Code(s): 67513701 Comment: - Continue home C-PAP (8) Hyponatremia Current Visit: Yes Status: Acute Code(s): E87.1 - HYPO-OSMOLALITY AND HYPONATREMIA SNOMED Code(s): 30249515 Comment: improved. Status and Disposition: inpatient. Testing scheduled for 09/25.
[2018-09-25] MEDS ORDERED: D5W 1/2 NS 1000 ML BAG* 1,000 ML IV SCH (13:00)
[2018-09-25] MEDS ORDERED: Atropine SYRINGE* 0.1 MG/ML 10 ML SYRINGE (1 MG) ONE (15:00)
[2018-09-25] MEDS ORDERED: Metoprolol Tartrate IV* 1 MG/ML 5 ML VIAL ONE (15:00)
[2018-09-25] MEDS ORDERED: Perflutren Lipid Microsphere* 3 ML VIAL ONE (15:19)
[2018-09-25 18:23] VITALS: BP 118/73
--- NOTE | 2018-09-25 22:09 | DS ---
CC: Dr. Lise Davis; Dr. Becki Finch; Dr. Vinay Torres * DISCHARGE SUMMARY: DATE OF ADMISSION: 09/20/18 DATE OF DISCHARGE: 09/25/18 PRIMARY CARE PROVIDER: Dr. Lise Davis. CONSULTANTS DURING THE HOSPITAL COURSE: Included electronic assembly, Dr. Becki Finch. REASON FOR ADMISSION: Dizziness, shortness of breath, dry heaves, and right leg pain. DISCHARGE DIAGNOSES: Include: 1. Dizziness, resolved. 2. Right leg cellulitis. 3. History of diabetes. 4. Elevated troponin level with intermediate stress test. 5. Morbid obesity. 6. Sleep apnea, on CPAP. 7. Hyponatremia, improved. STUDIES DURING THE HOSPITAL COURSE: Included a chest x-ray on 09/20/18, which showed no evidence for acute cardiopulmonary disease. On 09/20, the patient had a venous Doppler, which showed there is no evidence for deep vein thrombosis. On 09/20, the patient had a chest CTA, which showed no pulmonary embolism. The patient also had on 09/22/18, a brain MRI which showed no acute intracranial abnormality. On 09/22/18, the patient underwent a nuclear stress test which revealed intermediate probability. Today, the patient had a dobutamine stress echo which was limited because of poor examination after which Dr. Torres recommended discharge with baby aspirin as well as low dose beta madalyn and follow up with electronic assembly as an outpatient. At this point, the patient is low to intermediate risk without having any chest pain currently. The patient also underwent an echocardiogram on 09/20/18 which showed ejection fraction of 65% to 70% with hyperdynamic left ventricle. There is hypokinesis noted. HOSPITAL COURSE: This is a 43-year-old male with past medical history of diabetes, obesity, hypertension, sleep apnea, who had presented himself to the emergency room with numerous complaints. 1. The patient was having dizziness for which the patient was found to have orthostatic hypotension, his lisinopril dose was adjusted. Her ALEXA inhibitor dose was reduced, the patient was given IV fluids. The patient also underwent a brain MRI which was negative. The patient's dizziness has improved. He is able to walk without any dizziness. 2. The patient was having chest pain, was found to have mildly elevated troponin for which he underwent a nuclear stress test which was intermediate, subsequently was ordered for dobutamine echo; however, was unable to get a good view on it, after which Dr. Torres recommended discharge with outpatient followup on aspirin and beta blockers. The patient right now is not having chest pain, and is a low to intermediate risk given his risk factors. 3. The patient was also found to have right leg cellulitis, for which the patient was started on antibiotics with cefazolin. The patient's blood cultures have remained negative. The patient also was found to have hyponatremia, sodium of 129, which improved slowly to 135. DISCHARGE PLAN: The patient is to be discharged in fair condition. DISCHARGE DISPOSITION: Home. DIET: Diabetic diet. DISCHARGE MEDICATIONS: Include: 1. Albuterol inhaler 2 puffs every 4 hours as needed. 2. Allopurinol 200 mg b.i.d. 3. Aripiprazole 5 mg at bedtime. 4. Bupropion 200 mg daily. 5. Fluticasone 500/50, one puff b.i.d. 6. Furosemide 40 mg daily. 7. Lantus 35 units at bedtime. 8. Lantus 40 units in the morning. 9. Loratadine 10 mg daily. 10. Mirtazapine 50 mg at bedtime. 11. Nystatin powder 1 topical b.i.d. as needed. 12. The patient is to stop taking his quinapril. 13. Start the patient on aspirin 81 mg daily. 14. Carvedilol 3.125 mg b.i.d. 15. The patient to take cefuroxime 500 mg b.i.d. for the next 5 days. 16. Continue dextran hypromellose 2 drops in both eyes every 3 hours as needed for dry eye. 17. Dulaglutide 1.5 mg subcutaneous weekly. 18. Glimepiride 4 mg b.i.d. 19. Metformin 1000 mg b.i.d. The patient has been told to follow up with his primary care doctor. The patient is to have a followup appointment with Dr. Becki Finch. We tried to make an appointment; however, were told that Dr. Becki Finch's office will call the patient for an appointment. The patient's activity is as tolerated. The patient to return to the emergency room for any chest pain, shortness of breath, palpitations, dizziness, or if any new issues arise. [id number]/CPS #: [id number] [facility]AV[facility]
== END 2018-09-25 18:20 | disposition home or self-care (01) | DRG 603 ==
LOC: ED 09:45 → MEDTELE 13:08
PROVIDERS: ADMIT Internal Medicine; ATTEND Internal Medicine
DX: L03.115 Cellulitis of right lower limb (principal); Z68.44 Body mass index [BMI] 60.0-69.9, adult; E66.2 Morbid (severe) obesity with alveolar hypoventilation; E87.1 Hypo-osmolality and hyponatremia; I95.1 Orthostatic hypotension; E11.9 Type 2 diabetes mellitus without complications; I10 Essential (primary) hypertension; J45.909 Unspecified asthma, uncomplicated; F32.9 Major depressive disorder, single episode, unspecified; R40.2362 Coma scale, best motor response, obeys commands, at arrival to emergency department; R40.2142 Coma scale, eyes open, spontaneous, at arrival to emergency department; R40.2252 Coma scale, best verbal response, oriented, at arrival to emergency department; R07.9 Chest pain, unspecified; M10.9 Gout, unspecified; E83.42 Hypomagnesemia; R79.89 Other specified abnormal findings of blood chemistry; I27.81 Cor pulmonale (chronic); I87.8 Other specified disorders of veins; Z79.4 Long term (current) use of insulin; Z91.018 Allergy to other foods; Z82.49 Family history of ischemic heart disease and other diseases of the circulatory system; Z88.6 Allergy status to analgesic agent; Z88.8 Allergy status to other drugs, medicaments and biological substances; Z83.3 Family history of diabetes mellitus; Z80.0 Family history of malignant neoplasm of digestive organs
CPT/HCPCS: 36415; 70450; 70551; 71045; 71275; 78452; 80048; 80053; 80061; 81003; 81015; 82607; 82803; 83605; 83735; 83880; 84443; 84484; 85025; 85379; 85610; 85730; 86141; 87040; 93005; 93017; 93306; 94640; 94660; 99284; A9270-GY; A9502; C8929; G8978-GP-CJ; G8979-GP-CI; J0280; J0461; J0690; J1644; J2785; J3475; J3490; Q9967

== ENCOUNTER 2018-10-24 20:35 | Inpatient (IN) | payer MEDICARE ==
--- NOTE | 2018-10-24 21:04 | ED ---
HPI Chest Pain - HPI Summary HPI Summary: This pt is a 43 Y/O M presenting to [facility] accompanied by his with a CC of R sided CP that started at 1845 and was rated at 9/10 in severity and has since decreased to a 7/10 in severity. He states that he was first dizzy and became nauseas at 1845 prior to his CP. He stated that the pain is also radiating into his back. He states that he is currently SOB. He denies any vomiting, diaphoresis, fevers, palpitations, and headaches. He stated that he will receive a cardiac cauterization from his Sales Review Clerk. He has a PMHx of DM and hypertension. He stated that he took all of his medications except metformin. His stated that his insurance does not cover metformin. - History of Current Complaint Chief Complaint: EDChestPainROMI Time Seen by Provider: 10/24/18 20:40 Hx Obtained From: Patient Onset/Duration: Started Hours Ago - 3, Still Present, Resolved - decreased from a 9/10 to a 7/10 Time of Onset: 18:45 Timing: Constant Initial Severity: Severe Current Severity: Moderate Pain Intensity: 7 Pain Scale Used: 0-10 Numeric Chest Pain Location: Diffuse - R sided Chest Pain Radiates: Yes Chest Pain Radiates To:: Back, Other - L side of chest Aggravating Factor(s): Nothing Alleviating Factor(s): Nothing Associated Signs and Symptoms: Positive: Chest Pain - L sided that radiates to the R side, Dizziness, Shortness of Breath, Nausea. Negative: Headaches, Fever , Diaphoresis, Palpitations, Vomiting - Additional Pertinent History Primary Care Physician: FANTA - Allergy/Home Medications Allergies/Adverse Reactions: Allergies Allergy/AdvReac Type Severity Reaction Status Date / Time dextromethorphan Allergy Nausea Verified 09/20/18 10:06 [From Mucinex DM] guaifenesin [From Mucinex DM] Allergy Nausea Verified 09/20/18 10:06 ibuprofen [From Motrin] Allergy rash/kidneys Verified 09/20/18 10:06 shut down orange oil Allergy hives Uncoded 09/20/18 10:06 diff breathing PMH/Surg Hx/FS Hx/Imm Hx Previously Healthy: Yes Endocrine/Hematology History: Reports: Hx Diabetes Denies: Hx Thyroid Disease, Hx Anemia, Hx Unexplained Bleeding Cardiovascular History: Reports: Hx Hypertension Denies: Hx Aneurysm, Hx Angina, Hx Auto Implanted Cardiovert Defib, Hx Cardiac Arrest, Hx Congenital Heart Disease, Hx Congestive Heart Failure, Hx Coronary Artery Disease, Hx Deep Vein Thrombosis, Hx Embolism, Hx Hypercholesterolemia, Hx Hypotension, Hx Myocardial Infarction, Hx Pacemaker/ICD , Hx Peripheral Vascular Disease, Hx Rheumatic Fever, Hx Syncope, Hx Valvular Heart Disease, Other Cardiovascular Problems/Disorders Respiratory History: Reports: Hx Asthma, Hx Sleep Apnea - uses cpap Denies: Hx Chronic Obstructive Pulmonary Disease (COPD), Hx Cystic Fibrosis, Hx Lung Cancer, Hx Pleural Effusion, Hx Pneumonia, Hx Pulmonary Edema, Hx Pulmonary Embolism, Hx Seasonal Allergies GI History: Denies: Hx Cirrhosis, Hx Crohn's Disease, Hx Diverticulosis, Hx Gall Bladder Disease, Hx Gastroesophageal Reflux Disease, Hx Gastrointestinal Bleed, Hx Hiatal Hernia, Hx Irritable Bowel, Hx Jaundice, Hx Obstructive Bowel, Hx Ileostomy, Hx Pyloric Stenosis, Hx Ulcer, Other GI Disorders History: Reports: Other Problems/Disorders - kidney "issues" when he takes ibuprofen Denies: Hx Acute Renal Failure, Hx Benign Prostatic Hyperplasia, Hx Chronic Renal Failure, Hx Dialysis, Hx Kidney Infection, Hx Kidney Stones, Hx Renal Disease Musculoskeletal History: Reports: Hx Gout Denies: Hx Arthritis, Hx Back Problems, Hx Bursitis, Hx Congenital Bone Abnormalities, Hx Fibromyalgia, Hx Osteoporosis, Hx Scoliosis, Hx Tendonitis, Other Musculoskeletal History Sensory History: Reports: Hx Contacts or Glasses - glasses Denies: Hx Cataracts, Hx Eye Injury, Hx Eye Prosthesis, Hx Glaucoma, Hx Legally Blind, Hx Macular Degeneration, Hx Vision Problem, Hx Deafness, Hx Hearing Aid, Hx Hearing Problem, Other Sensory Impairments Opthamlomology History: Reports: Hx Contacts or Glasses - glasses Denies: Hx Cataracts, Hx Eye Injury, Hx Eye Prosthesis, Hx Glaucoma, Hx Legally Blind, Hx Macular Degeneration, Hx Vision Problem, Other Sensory Impairments Neurological History: Denies: Hx Dementia, Hx Developmental Delay, Hx Headaches, Hx Migraine, Hx Nerve Disease, Hx Seizures, Hx Spinal Cord Injury, Hx Transient Ischemic Attacks (TIA) Psychiatric History: Reports: Hx Anxiety, Hx Depression, Hx Community Mental Health Tx, Hx Suicide Attempt Denies: Hx Attention Deficit Hyperactivity Disorder, Hx Autism, Hx Eating Disorder, Hx Panic Disorder, Hx Post Traumatic Stress Disorder, Hx Inpatient Treatment, Hx Schizophrenia, Hx Bipolar Disorder, Hx of Violent Episodes Against Others - Cancer History Cancer Type, Location and Year: none - Surgical History Surgery Procedure, Year, and Place: RIGHT WRIST FRACTURE, SCREWS PLACED. Hx Anesthesia Reactions: No - Immunization History Date of Tetanus Vaccine: UNKNOWN Infectious Disease History: No Infectious Disease History: Denies: Hx Clostridium Difficile, Hx Hepatitis, Hx Human Immunodeficiency Virus (HIV), Hx of Known/Suspected MRSA, Hx Shingles, Hx Tuberculosis, History Other Infectious Disease, Traveled Outside the [place] in Last 30 Days - Family History Known Family History: Positive: Hypertension, Diabetes, Other - cancer Negative: Cardiac Disease - Social History Alcohol Use: None Hx Substance Use: No Substance Use Type: Reports: None Hx Tobacco Use: No Smoking Status (MU): Never Smoked Tobacco Have You Smoked in the Last Year: No Review of Systems Positive: Other - Dizzy. Negative: Fever, Skin Diaphoresis Positive: Chest Pain - L sided that radiates to the R side . Negative: Palpitations Positive: Shortness Of Breath Positive: Nausea. Negative: Vomiting Negative: Headache All Other Systems Reviewed And Are Negative: Yes Physical Exam - Summary Physical Exam Summary: VITAL SIGNS: Reviewed. GENERAL: Patient is a well-developed and Morbidly obese male who is lying comfortable in the stretcher. Patient is not in any acute respiratory distress. HEAD AND FACE: No signs of trauma. No ecchymosis, hematomas or skull depressions. No sinus tenderness. EYES: PERRLA, EOMI x 2, No injected conjunctiva, no nystagmus. EARS: Hearing grossly intact. Ear canals and tympanic membranes are within normal limits. MOUTH: Oropharynx within normal limits. NECK: Supple, trachea is midline, no adenopathy, no JVD, no carotid bruit, no c- spine tenderness, neck with full ROM CHEST: Symmetric, no tenderness at palpation LUNGS: Clear to auscultation bilaterally. No wheezing or crackles. CVS: Regular rate and rhythm, S1 and S2 present, no murmurs or gallops appreciated. ABDOMEN: Soft, non-tender. No signs of distention. No rebound no guarding, and no masses palpated. Bowel sounds are normal. EXTREMITIES: FROM in all major joints, no edema, no cyanosis or clubbing. NEURO: Alert and oriented x 3. No acute neurological deficits. Speech is normal and follows commands. SKIN: Dry and warm Triage Information Reviewed: Yes Vital Signs On Initial Exam: Initial Vitals Temp Pulse Resp BP Pulse Ox 98.3 F 92 20 123/73 93 10/24/18 20:38 10/24/18 20:38 10/24/18 20:38 10/24/18 20:38 10/24/18 20:38 Vital Signs Reviewed: Yes Diagnostics - Vital Signs Vital Signs Temp Pulse Resp BP Pulse Ox 10/24/18 20:38 98.3 F 92 20 123/73 93 - Laboratory Result Diagrams: 10/24/18 21:22 10/24/18 21:22 Lab Statement: Any lab studies that have been ordered have been reviewed, and results considered in the medical decision making process. - Radiology CXR Radiology Interpretation Completed By: ED Physician Summary of Radiographic Findings: No acute processes. Pending offical review. - EKG 2037 Cardiac Rate: NL - 90 BPM EKG Rhythm: Sinus Rhythm Ectopy: None EKG Comparison: No Significant Change - 09/20/18 Summary of EKG Findings: NSR at [address] diffuse [address] depressions. Normal interval. No ischemic changes. No change from a previous EKG taken on . [place] Dr. [place] 203710/24/18. Chest Pain Course/Dx - Course Course Of Treatment: This pt is a 43 Y/O M presenting to [facility] accompanied by his with a CC of left sided CP that started at 1800 and was rated at 9/10 in severity and has since decreased to a 7/10 in severity. He states that he was first dizzy and became nauseas at 1845 prior to his CP. He has pertinent positives of SOB and nausea. His pertinent negatives include vomiting, palpitations, diaphoresis, and headaches. His PE found that he is morbidly obese. He was given insulin diuring his ED course. His EKG taken at 2037 shows that he has NSR at [address] diffuse minimal [address] depressions. Normal interval. No ischemic changes. No change from a previous EKG taken on 09/20/18. He has abnormal laboratory values in [facility] O2 saturation at 58.1, sodium 132, Chloride 99, Glucose 436, AST 12, Total protein 6.1, and INR 1.13. His CXR shpowed no acute processes. Dr. Thomas, Hospitalist, was paged at 2910 and will be consulted to discuss admitting the pt to [facility] [place] further evaluations due to his Dx of chest pain and hyperglycemia. - Diagnoses Provider Diagnoses: Chest pain, Hyperglycemia - Provider Notifications Discussed Care Of Patient With: Pham Thomas Time Discussed With Above Provider: 00:13 Instructed by Provider To: Admit As Inpatient Admit/Transition Orders Completed By ED Provider: Yes Discharge ED - Sign-Out/Discharge Documenting (check all that apply): Patient Departure - admitted Patient Received Moderate/Deep Sedation with Procedure: No - Discharge Plan Condition: Stable Disposition: ADMITTED TO [facility] Referrals: Lise Davis MD [Primary Care Provider] - - Attestation Statements Document Initiated by Scribe: Yes Documenting Scribe: German [place] Provider For Whom Scribe is Documenting (Include Credential): Philippe Hoffman MD Scribe Attestation: German Luna, scribed for Philippe Hoffman MD on 10/25/18 at 0012. Status of Scribe Document: Ready
[2018-10-24] MEDS ORDERED: Insulin REGULAR(*) 1 UNITS UNIT IV ONE (21:09)
[2018-10-24] MEDS ORDERED: NS 0.9% 1000 ML** 2,000 ML IV ONE (21:12)
[2018-10-24 21:32] LABS: ABS Basophils 0.1 10^3/ul (0-0.2); ABS Eosinophils 0.2 10^3/ul (0-0.6); ABS Monocytes 0.4 10^3/ul (0-0.8); ABS Neutrophils 6.9 10^3/ul (1.5-7.7); Eosinophil % 1.8 %; Hematocrit 43 % (42-52); Hemoglobin 14.3 g/dL (14.0-18.0); Lymphocyte % 11.4 %; Mean Corpuscular HGB Conc 34 g/dL (31-36); Mean Corpuscular Hemoglobin 28 pg (27-31); Mean Corpuscular Volume 85 fL (80-94); Mean Platelet Volume 8.4 fL (7.4-10.4); Platelet Count 164 10^3/uL (150-450); Red Blood Count 5.06 10^6 /uL (4.18-5.48); Red Cell Distribution Width 15 % (10-15); White Blood Count 8.6 10^3/uL (3.5-10.8)
--- OUTSIDE RECORDS SUMMARY | 2018-10-24 21:33 | XMS REPORT | Summary of Care ---
:1975 Author Organization [facility] Address [address] [facility] [place] [address] Care Team Providers Name Role Phone Lise Davis MD Primary Care Provider Reason for Visit Reason Comments New Patient Pt. referred by [facility] for Dizziness. Admitted 09/16/18. Reports Echo and Nuc stress test done Dizziness Pt. reports Dizziness with standing and sitting. Breathing Problem Pt. reports Dyspnea with Minimal Exertion Encounter Details Date Type Department Care Team Description 10/16/2018 Office Visit [facility], Abnormal nuclear stress test (Primary Dx); Cardiology MD Jhoan DEJESUS (dyspnea on exertion); [address] Syncope, [place] [address] [place] [address] [phone] Allergies Active Allergy Reactions Severity Noted Date Comments Bee Sting Respiratory Reaction 09/19/2013 SOB, throat tightness Glipizide Other 09/20/2007 Burning pain in chest Aspartame-Ibuprofen Other 10/02/2011 Mucinex Hives 03/02/2018 Coy Other 10/02/2011 documented as of this encounter (statuses as of 10/16/2018) Medications Medication Sig Dispensed Refills Start Date End Date Status HYDROXYPROPYL Place 2 Drops to 1 Bottle 0 02/14/2014 Active METHYLCELLULOSE (GENTEAL the external eye MILD TO MODERATE) 0.3 % DAILY NEEDED Ophthalmic Solution (2 drops in both eyes ever 3 hours as needed). loratadine take 1 tablet by 30 Tab 5 11/05/2014 Active (CLARITIN,ALAVERT) 10 MG mouth once daily Oral Tab furosemide (LASIX) 40 MG Take 1 Tab by 30 Tab 3 11/11/2015 Active Oral TabIndications: mouth DAILY Ankle edema NEEDED (swelling). buPROPion (WELLBUTRIN take 1 tablet by 30 Tab 5 10/25/2016 Active XL) 300 MG Oral TABLET mouth once daily SR 24 HR Additional information Patient taking differently: 450 mg PO QD, Reported on 07/27/2017 2:01 PM Nystatin 481553 UNIT/GM 1 g by Apply externally 1 Bottle 2 04/26/2017 Active Apply externally Powder route TWICE DAILY. Dulaglutide (TRULICITY) 1.5 Inject 1.5 mg beneath the 2.24 mL 6 07/27/2017 Active MG/0.5ML Subcutaneous skin EVERY 7 DAYS. Solution Pen-injector mirtazapine (REMERON) 15 MG Take 15 mg by mouth EVERY 0 Active Oral Tab BEDTIME. aripiprazole (ABILIFY) 5 MG Take 5 mg by mouth EVERY 0 Active Oral Tab BEDTIME. GLARGINE insulin, Inject 35-40 Units beneath 6 Each 5 07/27/2017 Active LONG-Acting, (LANTUS) 100 the skin TWICE DAILY. 40 U UNIT/ML Subcutaneous in AM and 35 U PM - E11.9 Solution Additional information Patient taking differently: 35-40 Units Subcutaneous BID, 50 U in AM and 40 U PM - E11.9, Reported on 01/02/2018 1:51 PM Insulin Pen Needle Inject 1 Each 100 Each 3 07/27/2017 Active (BD ULTRA-FINE PEN beneath the skin NEEDLES) 29G X 12.7MM TWICE DAILY. Does not apply Misc EPINEPHrine (EPIPEN 1 Device by 2 Each 0 08/24/2017 Active 2-STU) 0.3 MG/0.3ML Injection route Injection Solution DIRECTED. As Auto-injector directed for bee sting Blood Glucose Monitor 1 Device by Does 1 Device 0 08/25/2017 Active Software Does not not apply route apply Device DIRECTED. Insurance preferred. E11.9 Lancets Does not TWICE DAILY. E11.9 100 Each 08/25/2017 Active apply Misc Glucose Blood In 1 Strip by In Vitro 100 Strip 5 08/25/2017 Active Vitro Strip route TWICE DAILY. Insurance preferred - E11.9 albuterol HFA Take 2 Puffs by 1 Inhaler 0 06/09/2018 Active (VENTOLIN) 108 (90 inhalation EVERY Base) MCG/ACT FOUR HOURS Inhalation Aero Soln NEEDED (1-2 puffs every four hours as needed). fluticasone-salmetero Take 1 INHL by 1 Inhaler 0 06/09/2018 Active l diskus (ADVAIR inhalation TWICE DISKUS) 500-50 DAILY. MCG/DOSE Inhalation AEROSOL POWDER, BREATH ACTIVATED glimepiride (AMARYL) Take 1 Tab by mouth 60 Tab 0 06/09/2018 Active 4 MG Oral Tab TWICE DAILY. allopurinol TAKE TWO TABLETS BY 120 Tab 0 08/05/2018 Active (ZYLOPRIM) 100 MG MOUTH TWICE A DAY Oral Tab metFORMIN HCL 1000 MG TAKE ONE TABLET BY 60 Tab 1 10/02/2018 Active Oral Tab MOUTH TWICE A DAY carvedilol (COREG) Take 3.125 mg by 0 Active 3.125 MG Oral Tab mouth TWICE DAILY. Aspirin 81 MG Oral Take 81 mg by mouth 0 Active Tab DAILY. quinapril (ACCUPRIL) Take 1 Tab by mouth 30 Tab 0 06/09/2018 Discontinued 20 MG Oral Tab DAILY. 9 documented as of this encounter (statuses as of 10/16/2018) Active Problems Problem Noted Date Depression 03/10/2012 BMI 70 and over, adult 08/28/2010 Gout 12/04/2007 Morbid obesity 04/28/2007 Type 2 diabetes mellitus with complication 04/28/2007 Hypertension 04/28/2007 Asthma 04/28/2007 Allergic Rhinitis 04/28/2007 Sleep apnea Overview: bipap documented as of this encounter (statuses as of 10/16/2018) Resolved Problems Problem Noted Date Resolved Date Wrist fracture 10/02/2011 Overview: R, open reduction and fixation documented as of this encounter (statuses as of 10/16/2018) Immunizations Name Administration Dates Next Due Influenza (IM) Preservative Free 01/02/2018, 12/21/2016, 12/23/2015, 12/24/2013, 11/23/2012, 03/02/2012, 02/16/2010, 11/29/2008, 2008 Influenza (IM) W/Pres 11/21/2014 Influenza Vaccine Whole 01/27/2004 PNEUMOCOCCAL POLYSACCHARIDE VACCINE 09/10/2009 TDAP Vaccine 09/10/2009 Tuberculin Skin Test 05/18/2004 documented as of this encounter Social History Tobacco Use Types Packs/Day Years Used Date Never Smoker Smokeless Tobacco: Never Used Alcohol Use Drinks/Week oz/Week Comments No Sex Assigned at Date Recorded Not on file Job Start Date Occupation Industry Not on file Not on file Not on file Travel History Travel Start Travel End No recent travel history available. documented as of this encounter Last Filed Vital Signs Vital Sign Reading Time Taken Comments Blood Pressure 132/84 10/16/2018 1:09 PM EDT Pulse 78 10/16/2018 1:09 PM EDT Temperature - - Respiratory Rate - - Oxygen Saturation 94% 10/16/2018 1:09 PM EDT Inhaled Oxygen Concentration - - Weight 181.9 kg (401 lb) 10/16/2018 1:09 PM EDT Height 172.7 cm (5' 8") 10/16/2018 1:09 PM EDT Body Mass Index 60.97 10/16/2018 1:09 PM EDT documented in this encounter Patient Instructions Patient InstructionsJhoan Zepeda MD - 10/16/2018 1:20 PM EDT No medication changes today. As we discussed, schedule a cardiac catheterization in [place] sometime in the next couple of weeks. Continue to work on weight loss. Follow up with me in 4-6 weeks to review the results of your cath procedure. documented in this encounter Progress Notes Jhoan Zepeda MD - 10/16/2018 1:20 PM EDT [facility] Note Patient: Trae Urbina Date of : 1975 Date of Service: 10/16/2018 REFERRING PRACTITIONER: Other PRIMARY CARE PROVIDER: Lise Davis Chief Complaint: Chief Complaint Patient presents with New Patient Pt. referred by [facility] for Dizziness. Admitted 09/16/18. Reports Echo and Nuc stress test done Dizziness Pt. reports Dizziness with standing and sitting. Breathing Problem Pt. reports Dyspnea with Minimal Exertion History of Present Illness: We had the pleasure of seeing Trae Urbina today at the [facility] Cardiology Office. He is a 43-y.o. male with morbid obesity, DM2, depression, HTN, asthma, NILES on BiPap, and an abnormal nuclear stress test done at [facility] in the setting of indeterminate troponins. Mr. Urbina presents to cardiology clinic today for further evaluation of CP and an abnormal nuclearstress test. He was admitted to [facility] from 09/20 to 09/25 with c/o dizziness, SOB, RLE pain, and dry heaves. He had a chest CTA and LE dopplers which showed no evidence of PE or DVT. He also had a brainMRI which was essentially normal. Given a c/o CP in the hospital he had troponins checked which were indeterminate at 0.01. Subsequent nuclear stress test showed normal LVEF but possible anterior ischemia. He was seen by Dr. Torres and dobutamine echo was attempted but imaging was too limited for a diagnostic study. He was started on ASA and beta madalyn and outpatient f/u was recommended. He wasalso diagnosed with a cellulitis and was found to have hyponatremia in the hospital. The sodium levels improved and he was given a course of abx with improvement in his RLE sxs. From a symptom standpoint now, he reports that he continues to have some significant SOB and is winded with just walking less than 10 feet. Dyspnea has been present for a long time but seems to be getting worse in the past 6-12 months. Breathing heavily makes him lightheaded but he hasn't had syncope other than one episode last week. He says that he was walking in to get some free food at a food bank and suddenly lost consciousness. Lost urinary continence at that time but didn't sustain any injuries. No witnessed seizure activity and he came to within less than a minute. Didn't seek medical attention at that time. No chest pains/pressure. Has previously had significant palpitations but hasn't had any in recent months. Wears his BiPap regularly but denies clear orthopnea. Has some chronic LE edema which has been stable. Patient Active Problem List Diagnosis Morbid obesity (HCC) Type 2 diabetes mellitus with complication ([facility]) Hypertension Asthma Allergic Rhinitis Sleep apnea Gout BMI 70 and over, adult ([facility]) Depression Past Medical History: Diagnosis Date Allergic Rhinitis 04/28/2007 Asthma 04/28/[address] Donato Diabetes 04/28/2007 eye -04/2014, feet 03/13 Gout Hypertension 04/28/2007 Morbid obesity (HCC) 04/28/2007 Sleep apnea bipap 14/12 Wrist fracture R, open reduction and fixation No past surgical history on file. Allergies Allergen Reactions Bee Sting Respiratory Reaction SOB, throat tightness Glipizide Other Burning pain in chest Ibuprofen [Aspartame-Ibuprofen] Other Mucinex Hives Coy Other Current Outpatient Medications Medication Sig albuterol HFA (VENTOLIN) 108 (90 Base) MCG/ACT Inhalation Aero Soln Take 2 Puffs by inhalation EVERY FOUR HOURS NEEDED (1-2 puffs every four hours as needed). allopurinol (ZYLOPRIM) 100 MG Oral Tab TAKE TWO TABLETS BY MOUTH TWICE A DAY aripiprazole (ABILIFY) 5 MG Oral Tab Take 5 mg by mouth EVERY BEDTIME. Aspirin 81 MG Oral Tab Take 81 mg by mouth DAILY. Blood Glucose Monitor Software Does not apply Device 1 Device by Does not apply route DIRECTED. Insurance preferred. E11.9 buPROPion (WELLBUTRIN XL) 300 MG Oral TABLET SR 24 HR take 1 tablet by mouth once daily (Patient taking differently: 450 mg PO QD) carvedilol (COREG) 3.125 MG Oral Tab Take 3.125 mg by mouth TWICE DAILY. Dulaglutide (TRULICITY) 1.5 MG/0.5ML Subcutaneous Solution Pen-injector Inject 1.5 mg beneaththe skin EVERY 7 DAYS. EPINEPHrine (EPIPEN 2-STU) 0.3 MG/0.3ML Injection Solution Auto-injector 1 Device by Injection route DIRECTED. As directed for bee sting fluticasone-salmeterol diskus (ADVAIR DISKUS) 500-50 MCG/DOSE Inhalation AEROSOL POWDER, BREATH ACTIVATED Take 1 INHL by inhalation TWICE DAILY. furosemide (LASIX) 40 MG Oral Tab Take 1 Tab by mouth DAILY NEEDED ( swelling). GLARGINE insulin, LONG-Acting, (LANTUS) 100 UNIT/ML Subcutaneous Solution Inject 35-40 Units beneath the skin TWICE DAILY. 40 U in AM and 35 U PM - E11.9 (Patient taking differently: Inject 35-40 Units beneath the skin TWICE DAILY. 50 U in AM and 40 U PM - E11.9) glimepiride (AMARYL) 4 MG Oral Tab Take 1 Tab by mouth TWICE DAILY. Glucose Blood In Vitro Strip 1 Strip by In Vitro route TWICE DAILY. Insurance preferred - E11.9 HYDROXYPROPYL METHYLCELLULOSE (GENTEAL MILD TO MODERATE) 0.3 % Ophthalmic Solution Place 2 Drops to the external eye DAILY NEEDED (2 drops in both eyes ever 3 hours as needed). Insulin Pen Needle (BD ULTRA-FINE PEN NEEDLES) 29G X 12.7MM Does not apply Misc Inject 1 Eachbeneath the skin TWICE DAILY. Lancets Does not apply Misc TWICE DAILY. E11.9 loratadine (CLARITIN,ALAVERT) 10 MG Oral Tab take 1 tablet by mouth once daily metFORMIN HCL 1000 MG Oral Tab TAKE ONE TABLET BY MOUTH TWICE A DAY mirtazapine (REMERON) 15 MG Oral Tab Take 15 mg by mouth EVERY BEDTIME. Nystatin 436534 UNIT/GM Apply externally Powder 1 g by Apply externally route TWICE DAILY. No current facility-administered medications for this visit. Family History Problem Relation Age of Onset Heart Mother HCM and Afib Social History Socioeconomic History Marital status: Single Spouse name: Not on file Number of children: Not on file Years of education: Not on file Highest education level: Not on file Occupational History Not on file Social Needs Financial resource strain: Not on file Food insecurity: Worry: Not on file Inability: Not on file Transportation needs: Medical: Not on file Non-medical: Not on file Tobacco Use Smoking status: Never Smoker Smokeless tobacco: Never Used Substance and Sexual Activity Alcohol use: No Drug use: No Sexual activity: Not on file Lifestyle Physical activity: Days per week: Not on file Minutes per session: Not on file Stress: Not on file Relationships Social connections: Talks on phone: Not on file Gets together: Not on file Attends buddhism service: Not on file Active member of club or organization: Not on file Attends meetings of clubs or organizations: Not on file Relationship status: Not on file Intimate partner violence: Fear of current or ex partner: Not on file Emotionally abused: Not on file Physically abused: Not on file Forced sexual activity: Not on file Other Topics Concern Not on file Social History Narrative Not on file Nursing Notes: Dara Barraza LPN 10/16/2018 1:25 PM Signed PATIENT: Trae Urbina : 1975 DATE OF SERVICE: 10/16/2018 CARDIOLOGY AMBULATORY NURSING INTAKE FORM HISTORY COLLECTED BY CLINICAL STAFF: KG REVIEW OF SYSTEMS: GENERAL: Fever: no Weight loss/gain: no Fatigue: yes - increased over the past few months Recent febrile illness: no NEUROLOGIC: Headache: no Syncope: yes - dizziness with sitting and standing. CVA/TIA: no Change in sensation: no CARDIOVASCULAR: Chest Pain: no Palpitations: Yes speeds up Orthopnea: yes - 4 pillows at HS Rheumatic Fever (history of): no Edema: no RESPIRATORY: Cough: no Shortness Of Breath: yes - stairs and minimal exertion Hemoptysis: no Underlying Lung Disease: yes - asthma GASTROINTESTINAL: Nausea: no Vomiting: no Constipation: no Diarrhea: no Melena: no PUD (history of): no Hematemesis: no Gastrointestinal Disorder: no GENITOURINARY: Hematuria: no Urinary Tract Infection(s): no Nocturia: no Prostate Problem(s): no HEMATOLOGIC: Easy bruising: no Bleeding: no MUSCULOSKELETAL/PERIPHERAL VASCULAR SYSTEM: Muscle Pain: no Muscle Cramping: no Stiffness: no Muscle Weakness: no BEHAVIORAL/PSYCH: Depression: no ENDOCRINE: Tremors: no Heat or cold intolerance: Yes heat Author: Dara Barraza LPN 10/16/2018 13:09 I have reviewed the ROS obtained by my nurse and concur as detailed above. Physical Exam: Vitals: 10/16/18 1309 BP: 132/84 Pulse: 78 SpO2: 94% Weight: (!) 401 lb (181.9 kg) Height: 5' 8" (1.727 m) Body mass index is 60.97 kg/m. General: Morbidly obese, alert 43-y.o. male in NAD HEENT: anicteric, MMM, no E/E OP, conj pink Neck: JVP difficult to appreciate d/t body habitus; no carotid bruits or LAD CV: RRR, normal s1/s2, no appreciable murmurs, rubs, or gallops Pulm: CTA bilaterally without wheezes, rhonchi, or rales. No increased work of breathing. Abd: soft, obese, NT, ND, +BS. No appreciable pulsatile masses or bruits. Ext: 1+ bilateral lower extremity edema, no cyanosis, no cords, redness, or warmth, 2+ distal pulses Neuro: no gross focal deficits Skin: no visible lesions Labs: Lab Results Component Value Date NA 132 (L) 10/12/2018 K 4.8 10/12/2018 CL 97 (L) 10/12/2018 CO2 20 (L) 10/12/2018 GLUCOSE 428 (H) 10/12/2018 BUN 15 10/12/2018 CREATININE 0.6 (L) 10/12/2018 CALCIUM 9.0 10/12/2018 TP 6.9 10/12/2018 ALBUMIN 4.0 10/12/2018 AST 31 10/12/2018 ALT 18 (L) 10/12/2018 ALK 54 10/12/2018 TBILI 0.8 10/12/2018 EGFR >60 10/12/2018 Lab Results Component Value Date NT PRO BNP 387 (H) 01/02/2018 Lab Results Component Value Date CHOL 133 04/10/2018 TRIG 136 04/10/2018 HDL 21 (L) 04/10/2018 LDL 85 04/10/2018 LDLHDLRATIO 4.0 04/10/2018 CHOLHDLRATIO 6.3 04/10/2018 Cardiac Studies: TTE at [facility] 09/20/2018: -Moderately increased wall thickness. -LVEF 65-70% without RWMAs -Mild-moderate RV enlargement with moderate to severely reduced systolic function -Septal flattening c/w RV volume/pressure overload. -Moderate LIZ -Mild-moderate MI -Estimated PASP 54 mmHg. Regadenoson SPECT at [facility] 09/22/2018: -LVEF 66% without RWMAs -Small to moderate amount of reversible perfusion defect is noted in the anterior wall at the base of the heart. -Intermediate risk test. Assessment & Plan: Trae Urbina is a 43-y.o. male with morbid obesity, DM2, depression, HTN , asthma, NILES on BiPap, and an abnormal nuclear stress test done at [facility] in the setting of indeterminate troponins. ICD-9-CM ICD-10-CM 1. Abnormal nuclear stress test 794.39 R94.39 2. DEJESUS (dyspnea on exertion) 786.09 R06.09 3. Syncope, unspecified syncope type 780.2 R55 1. DEJESUS/Abnormal Nuclear Stress Test: While the patient's symptoms are fairly vague and the history he gives is not particularly detailed, I think that the most likely reason for his dyspnea is his weight, deconditioning, and a degree of pulmonary HTN related to his severe NILES and possibly a little diastolic dysfunction. That said, he does have multiple CAD risk factors and his nuclear stress test [facility] indicated a degree of ischemia. I explained to him that I don 't believe other types of noninvasive imaging (dobutamine echo or coronary CTA) are going to give us a definitive answer about his risk. As such, I feel that we need to define his coronary anatomy with a left heart cath. Given his predominant symptom of dyspnea and elevated pulm pressures on echo, I think it would be reasonable to doa right heart cath at the same time. I explained the heart catheterization and possible angioplasty/stent procedure as well as the attendant risks. These risks include, but are not limited to, major bleeding requiring blood transfusions or surgical repair, dye allergy, kidney insufficiency, heart attack, stroke, emergency heart bypass surgery, or . In average risk situations, the risk of these events is 1 in 300 for diagnostic heart catheterization and 3-5% for percutaneous coronary intervention. I estimated that the risk of major adverse events from the procedure in this situation is average. The patient understand(s) the risks and wish(es) to proceed. He recently had labs done last week and his renal function was normal. We'll continue the carvedilol and aspirin until we see the results of the cath. 2. Morbid Obesity: I explained to the patient that ultimately he needs to lose weight or all of his current problems will only worsen. He apparently was referred for bariatrics in [place] at one point but was unable to complete that program for some reason. If his cath doesn't show any obstructiveCAD then I think a new referral to bariatrics in [place] or at [facility] would make sense. He is amenable to that plan. Thank you for allowing me to participate in the care of Traetatiana Urbina. We will plan on f/u in our office in 4-6 weeks. If you have any questions or concerns please feel free to call our office at . Jhoan Zepeda MD, 10/16/2018, 16:48 documented in this encounter Plan of Treatment Date Type Specialty Care Team Description 10/17/2018 Office Visit Family Practice Lise Davis MD [address] [place] [phone] 11/09/2018 Office Visit Endocrinology Ynes Belle, [employer] [address] [place] [address] 11/27/2018 Office Visit Cardiology Jhoan Zepeda MD [address] [place] [phone] Name Type Priority Associated Diagnoses Order Schedule CASE REQUEST CATH Procedures Routine One Time for 1 LAB Occurrences starting 10/16/2018 until 10/16/2018 Health Maintenance Due Date Last Done Comments MEDICARE ANNUAL WELLNESS 12/21/2017 12/21/2016, 03/02/2012 VISIT INFLUENZA VACCINE (#1) 2018 01/02/2018, 12/21/2016, 12/23/2015, Additional history exists HEMOGLOBIN A1C 01/12/2019 10/12/2018, 07/13/2018, 04/10/2018, Additional history exists DEPRESSION SCREENING 03/09/2019 03/09/2018 LIPID DISORDER SCREENING 04/10/2019 04/10/2018, 09/15/2017, 06/11/2017, Additional history exists FOOT EXAM 07/14/2019 07/13/2018, 07/13/2018, 08/24/2017, Additional history exists URINE MICROALBUMIN 09/09/2019 09/08/2018, 10/06/2016, 09/11/2014, Additional history exists Diabetic Eye Exam 03/31/2020 03/31/2018, 03/31/2018, 05/21/2015, Additional history exists PNEUMOCOCCAL 0-64 YRS Completed 09/10/2009 HPV IMMUNIZATION SERIES Aged Out No longer eligible based on patient's age to complete this topic MENINGOCOCCAL VACCINE IMM Aged Out No longer eligible based on patient's age to complete this topic documented as of this encounter Goals Goal Patient Goal Associated Recent Patient-Stated? Author Type Problems Progress Blood Pressure Blood Pressure Hypertension 132/84 No Susan, < 140/90 (10/16/2018 Lise, 1:09 PM EDT) Note: Hypertension Care Plan Based on the patient's clinical history and according to JNC 8 guidelines target blood pressure goal is less than 140/90. Based on the patient's last blood pressure of BP: 144/90 mmHg the patient is at at goal. As your provider, it is important that I advise you regarding: your current medications and help you with any challenges you may face taking your medications as directed (ex. instructions, cost, side effects, and interactions). Important lifestyle changes: exercise, weight reduction and diet your clinical goals and how you can achieve success: weight reduction, exercise plan and diet improvements medication management: adjusted medications as appropriate patient education/self-management tools provided: Yes To successfully manage my Hypertension I will: monitor my blood pressure daily, understanding that my goal is less than 140/ 90 per my healthcare provider's recommendation. I will schedule an appointment with my provider if consistent abnormal readings greater than 160/100. take medications every day as prescribed by my healthcare provider and if unable to take them I will discuss with my provider. monitor for symptoms of chest pain, chest tightness/pressure, irregular heartbeat, persistent dizziness, radiating arm pain, and neck or jaw pain. If any of these symptoms are noticed I will seek medical attention immediately by calling 911 exercise/walk 30 minutes 5 day(s) per week. If I experience chest pain, chest tightness, or shortness of breath, I will seek medical attention immediately. follow a diet rich in fruits, vegetables, and low-fat dairy products with reduced content of saturated & total fat. I will reduce my sodium intake daily. An example is the DASH diet. To obtain more information please refer to the DASH Eating Plan listed in Educational Resources. record my blood pressure results. Jayda is safe and secure way for you to do this in your medical record online. try to obtain an ideal body weight. My recent weight was Weight: 449 lb ( 203.665 kg). My weight loss goal for my next office visit is 440. limit alcohol consumption. For men two drinks per day and women one drink per day. if currently smoking, will discuss how to quit smoking with my healthcare provider and work towards quitting. Educational Resources: National Heart, Lung, & Blood [place] http://nhlbi.nih.gov/hbp/index.html The DASH Diet Eating Plan http://www.nhlbi.nih.gov/health/health-topics/ topics/dash/ Academy of Nutrition & DIetetics http://eatright.org National Smoking Cessation Site http://smokefree.gov Blood Pressure < Blood Pressure 132/84 (10/16/2018 No Lise Davis, 140/90 1:09 PM EDT) Note: This is an individualized treatment (blood pressure) goal for Trae Urbina: Displayed above (on the left) is your goal for blood pressure control. Your most recent blood pressure is also shown above, on the right. You should try to achieve blood pressures that are lower than your goal listed above (on the left). Depression screen (PHQ-9) total score < 5 Depression No Lise Davis MD Note: This is an individualized treatment (depression) goal for Trae Urbina: Displayed above is your goal for a depression screening (PHQ-9) score that would indicate good control of your depression. Diabetes < 7.0 Diabetes Type 2 diabetes 10.9 (10/12/2018 No Susan, mellitus with 3:02 PM EDT) MD Lise complication Note: Diabetes Care Plan According to current 2014 ADA guidelines the patient A1C goal is less than 7. The patient's last A1C was Lab Results Lab Results Value Date/Time GLYCO 9.8 01/16/2014 0807 GLYCO 7.7 02/06/2013 0908 The patient is:above goal . As your provider, it is important that I advise you regarding: your current medications and help you with any challenges you may face taking your medications as directed (ex. instructions, cost, side effects, and interactions). lifestyle changes:walking evary day for about an hour your clinical goals and how you can achieve success:weight reduction and exercise plan medication management: adjusted medications as appropriate patient education/self-management tools provided: Yes To successfully manage my Diabetes I will: have lab work every six months if my previous A1c was 7 or less. If my results were greater than 7, I will have lab work every three months. My goal is to control my diabetes by keeping A1c below 7.0 take medications every day as prescribed by my healthcare provider and if unable to take them I will discuss with my provider. exercise/walk 1 hour 7 day(s) per week. If I experience chest pain, chest tightness, or shortness of breath, I will seek medical attention immediately. check feet daily. If sores or irritation are noticed, will seek medical attention. follow a low carbohydrate and low fat diet. My goal is an LDL (bad cholesterol) number less than 100 when I have my routine lab work. check blood sugar as instructed and will call my healthcare provider if the results are consistently below 70 or above 300. I will monitor for symptoms of low blood sugar (feeling faint, dizzy, lig htheaded, jittery, sweaty, or hungry), if symptoms are noticed, I will eat or drink something (glucose tabs, orange juice, candy) to help raise sugar. record my blood sugar results (including dextrose sticks). Jayda is safe and secure way for you to do this in your medical record online. try to obtain an ideal body weight. My recent weight was Weight: 459 lb ( 208.201 kg). to prevent kidney problems common to people with diabetes I will complete a yearly Microalbumin to check for protein in urine. I will talk with my healthcare provider about medications to prevent diabetic renal disease. to prevent diabetic retinopathy I will see an eye doctor yearly. A yearly dilated eye exam helps prevent blindness. if currently smoking, will discuss how to quit smoking with my healthcare provider and work towards quitting. Diabetes < 7.0 Diabetes Type 2 diabetes 10.9 (10/12/2018 No Susan, mellitus with 3:02 PM EDT) MD Lise complication Note: Diabetes Care Plan According to current 2014 ADA guidelines the patient A1C goal is less than 7. The patient's last A1C was Lab Results Lab Results Value Date/Time GLYCO 9.8 01/16/2014 0807 GLYCO 7.7 02/06/2013 0908 The patient is:above goal . As your provider, it is important that I advise you regarding: your current medications and help you with any challenges you may face taking your medications as directed (ex. instructions, cost, side effects, and interactions). Important lifestyle changes:exercise, diet and glucose monitoring your clinical goals and how you can achieve success:weight reduction, exercise plan, diet management and glucose monitoring medication management: adjusted medications as appropriate patient education/self-management tools provided: Yes To successfully manage my Diabetes I will: have lab work every six months if my previous A1c was 7 or less. If my results were greater than 7, I will have lab work every three months. My goal is to control my diabetes by keeping A1c below 7.0 take medications every day as prescribed by my healthcare provider and if unable to take them I will discuss with my provider. exercise/walk 30 minutes 5 day(s) per week. If I experience chest pain, chest tightness, or shortness of breath, I will seek medical attention immediately. check feet daily. If sores or irritation are noticed, will seek medical attention. follow a low carbohydrate and low fat diet. My goal is an LDL (bad cholesterol) number less than 100 when I have my routine lab work. check blood sugar as instructed and will call my healthcare provider if the results are consistently below 70 or above 300. I will monitor for symptoms of low blood sugar (feeling faint, dizzy, lig htheaded, jittery, sweaty, or hungry), if symptoms are noticed, I will eat or drink something (glucose tabs, orange juice, candy) to help raise sugar. record my blood sugar results (including dextrose sticks). [employer] is safe and secure way for you to do this in your medical record online. try to obtain an ideal body weight. My recent weight was Weight: 449 lb ( 203.665 kg). My weight loss goal for my next office visit is 440. to prevent kidney problems common to people with diabetes I will complete a yearly Microalbumin to check for protein in urine. I will talk with my healthcare provider about medications to prevent diabetic renal disease. to prevent diabetic retinopathy I will see an eye doctor yearly. A yearly dilated eye exam helps prevent blindness. if currently smoking, will discuss how to quit smoking with my healthcare provider and work towards quitting. Glycohemoglobin A1c < 7.0 Diabetes 10.9 (10/12/2018 3:02 Lise Lima, PM EDT) Note: This is an individualized treatment (diabetes control, HgbA1C) goal for Trae Urbina: Displayed above is your progress towards your HgbA1C goal. Your goal is shown above (on the left); your most recent HgbA1C is shown on the right. Note that lower numbers are better. Weight loss vs. 18 mo Lifestyle 25 (10/16/2018 1:09 PM Lise Lima MD max (lbs) >= 10 EDT) Note: This is an individualized lifestyle goal for Trae Urbina: Your body mass index (BMI) is more than 30. You should lose weight. A reasonable starting goal is to lose 10 pounds. Displayed above is how many pounds you have lost thus far towards your 10 pound weight loss goal. Keep a regular sleep schedule Lifestyle Lise Lima MD Note: This is an individualized lifestyle goal for Trae Urbina: Please maintain a regular sleep schedule. This may help with some symptoms of depression. Keep immunizations current Lifestyle No Lise Davis MD Note: This is an individualized lifestyle goal for Trae Urbina: Please be sure to keep up-to-date on recommended immunizations. For example, this would include a yearly influenza vaccine. Immunization status can be seen by looking at the Health Maintenance sections of your [facility], Plan of Care, and any After Visit Summaries. Take all prescribed medications as Self-management No Lise Davis MD directed Note: This is an individualized self-management goal for Trae Urbina: Please take all prescribed medications as directed. 1. Do not skip doses. If you cannot afford your medications, talk with your doctor. 2. Use a pill reminder system such as a pill box if needed. Your pharmacist can help you with this. 3. Contact your Pharmacy 5 days before your medication runs out. If you cannot take your medications for any reasons, talk with your doctor. 4. Please bring all of your medication bottles and inhalers (or a list of all your medications/inhalers) with you to every visit. Potential barriers to meeting all of your care plan goals will continue to be addressed on an ongoing basis. documented as of this encounter Results Not on filedocumented in this encounter Visit Diagnoses Diagnosis Abnormal nuclear stress test - Primary Other nonspecific abnormal cardiovascular system function study DEJESUS (dyspnea on exertion) Other dyspnea and respiratory abnormality Syncope, unspecified syncope type documented in this encounter Guarantor Name Account Type Relation to Date of Phone Billing Patient Address Trae Urbina Personal/Family 1975 [address] (Home) [place], [place] [phone] (Work) documented as of this encounter
[2018-10-24 21:40] LABS: Activated Partial Thrombo Time 35.9 seconds (26.0-38.0); INR 1.13 (0.82-1.09)
[2018-10-24 21:49] LABS: Albumin 3.8 g/dL (3.2-5.2); Albumin/Globulin Ratio 1.7 (1-3); BUN/Creatinine Ratio 18.1 (8-20); EGFR Non-African American 88.4 (>60); Globulin 2.3 g/dL (2-4); Magnesium 1.9 mg/dL (1.9-2.7); Potassium 4.2 mmol/L (3.5-5.0); Total Bilirubin 0.6 mg/dL (0.2-1.0); Total Protein 6.1 g/dL (6.4-8.9)
[2018-10-24 21:51] LABS: Troponin I 0.01 ng/mL (<0.04)
[2018-10-24] MEDS ORDERED: Insulin REGULAR(*) 1 UNITS UNIT IV PUSH ONE (22:53)
[2018-10-25] MEDS ORDERED: Albuterol HFA INHALER* 8 gm MDI INH PRN (01:34)
[2018-10-25] MEDS ORDERED: Dextrose 50% VIAL 50 ml IV PUSH PRN (01:38)
[2018-10-25] MEDS ORDERED: Insulin REGULAR(*) 1 UNITS UNIT IV PUSH ONE (01:39)
[2018-10-25] MEDS ORDERED: Acetaminophen TAB* 325 MG PO PRN (01:40)
[2018-10-25 03:06] LABS: Troponin I 0.01 ng/mL (<0.04)
[2018-10-25] MEDS: Enoxaparin(*) 40 MG/0.4 ML SYR SUBCUT SCH (05:53)
--- NOTE | 2018-10-25 06:30 | HP ---
HISTORY AND PHYSICAL: DATE OF ADMISSION: 10/25/18 PRIMARY CARE PROVIDER: Dr. Lise Davis. ESTATE ATTORNEY: Tracy Judd, the patient's mother. CODE STATUS: Full. CHIEF COMPLAINT: Chest pain. REASON FOR ADMISSION: Chest pain. SOURCE OF INFORMATION: HPI is obtained from review of history and medical records and interview of the patient. He is a poor historian. 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 Zepeda, who is presenting to the emergency room this evening with complaint of chest pain described as dull and aching, starting at the right side of his chest and radiating to the left side. It is associated with dizziness, but no nausea, vomiting, diaphoresis, palpitations or shortness of breath. He is a poor historian with largely poor health literacy and understanding of his own complex medical issues, though he reports he has been compliant on his medications and follows with his oil pipeline operator since he has been out of the hospital regularly. He was admitted to [facility] from to 09/25/18 with dizziness, cellulitis, and elevated troponin levels. He had a stress test on 09/22/18 which was intermediate and showed a small amount of reversible ischemia in the anterior wall. He had a corresponding echocardiogram that showed preserved ejection fraction of 65% to 70%, but with elevated right ventricular systolic pressure and right-sided hypokinesis. He was discharged with low-dose beta- madalyn and aspirin and discontinuation of his ALEXA inhibitor and did follow up Dr. Zepeda though has not heard back from him since his outpatient appointment over 1 week ago. Again, his current presenting pain started this evening unprovoked and he denies any inciting or relieving factors and is currently still present with him at the time of our interview. EMERGENCY ROOM COURSE: In the ER, temperature is 98.3, heart rate is 92, respiratory rate is 20, he is 93%on room air, and his blood pressure is 123/73. Labs showed a normal CBC. A BMP shows an elevated blood glucose to 440. He received 16 units of Lispro and 1 L of normal saline. An EKG was done, which showed normal sinus rhythm with a nonspecific intraventricular conduction delay and no acute signs of ischemia. Initial troponin is 0.01. His dizziness actually improved with symptoms of hyperglycemia that with chest pain has persisted. Chest x-ray was then done, which showed small lung volumes and prominent vasculature, cardiomegaly, but no other acute areas of opacifications or meño pulmonary edema. Because of his ongoing chest pain and recent indeterminate stress test, the hospitalist was asked to evaluate the patient. PAST MEDICAL HISTORY: Obesity, NILES/OHS on CPAP, asthma, insulin-dependent diabetes, gout, depression, anxiety, recent chest pain, possible CAD versus right- sided heart failure. PAST SURGICAL HISTORY: Right wrist. MEDICATIONS: 1. Furosemide 40 mg p.o. daily. 2. Trulicity 1.5 mg subcutaneous weekly. 3. Glimepiride 4 mg p.o. b.i.d. 4. Loratadine 10 mg p.o. daily. 5. Nystatin powder 1 application topical b.i.d. p.r.n. 6. Albuterol 2 puffs inhale q.4 hours p.r.n. for shortness of breath. 7. Allopurinol 200 mg p.o. b.i.d. 8. Aspirin 81 mg p.o. daily. 9. Bupropion 300 mg p.o. daily. 10. Carvedilol 3.125 mg p.o. b.i.d. 11. Fluticasone salmeterol 500/50 one puff inhale b.i.d. 12. Insulin glargine 35 units subcutaneous q.p.m. and 40 units subcutaneous q.a.m. Last dose this morning. 13. Metformin 100 mg p.o. b.i.d. 14. Mirtazapine 15 mg p.o. q.h.s. ALLERGIES: To MUCINEX DM, IBUPROFEN, ORANGE OIL. FAMILY HISTORY: Positive for heart failure in mother and father is healthy. SOCIAL HISTORY: The patient lives with his mother and in [place]. 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 He is a lifetime nontobacco, nonalcohol or illicit user. REVIEW OF SYSTEMS: Constitutional: Positive for dizziness and fatigue, but negative for fevers or chills. HEENT: Negative for vision changes, headache or sore throat. Cardiovascular: Positive for chest pain as described. No palpitations, no orthopnea. Respiratory: Negative for shortness of breath. Positive for dyspnea on exertion. No cough, no pleuritic chest pain. GI: Negative for nausea, vomiting, diarrhea or abdominal pain. : Negative for dysuria or hematuria. Musculoskeletal: Negative for myalgias or arthralgias. Skin: Negative for new rashes or lesions. Neurologic: Negative for focal weakness or numbness. Psychiatric: Negative for depression, anxiety. Endocrine: Negative for polyuria, polydipsia. Heme: Negative for easy bruising , bleeding, or lymphadenopathy. Allergies: Negative for seasonal frequent infections. PHYSICAL EXAMINATION GENERAL APPEARANCE: He is an obese gentleman lying in bed, in no acute distress. Limited interaction with the interviewer and poor health literacy and overall understanding of conversation or interview. VITAL SIGNS: At the time of physical exam, blood pressure is 120/73; heart rate is 90, respiratory rate is 20; oxygen saturation is 93% on room air. HEENT: Extraocular muscles are intact. Pupils are equal and reactive. Sclerae are anicteric. Oropharynx is clear with moist mucous membranes. NECK: Supple with no supraclavicular or cervical lymphadenopathy. RESPIRATORY: He has distant breath sounds, but is otherwise clear to auscultation. CARDIAC: Has S1, S2. Again distant sounds, but no appreciated murmur, rub or gallop. ABDOMEN: Belly is soft, nontender and nondistended. EXTREMITIES: Warm and well perfused with no edema. No erythema. NEURO: Cranial nerves II through XII are intact. No focal neurologic deficits. The patient is A and O x3. Cooperative with exam though needs frequent reorientation to interview. DIAGNOSTIC STUDIES/LAB DATA: White blood cell count 8.6, hemoglobin 14.3, hematocrit 43, platelets 164. INR 1.13. Chemistry shows sodium of 132, corrected to normal with hyperglycemia correction, chloride 99, potassium 4.2, carbon dioxide 27, anion gap 6, BUN 17, creatinine 0.94, glucose 436, calcium 9. AST 12, total bili 0.6, ALT 14, alk phos 70. Troponin 0.01. Imaging includes a chest x-ray shows small lung volumes, cardiomegaly, and no other acute cardiopulmonary findings. EKG shows normal sinus rhythm with intraventricular conduction delay nonspecific. Stress test on 09/22/18 showed a small amount of reversible ischemia in anterior wall. Echocardiogram on 09/20 showed ejection fraction preserved at 65% to 70% with elevated right ventricular systolic pressure and right-sided hypokinesis. Imaging, EKG, and labs were reviewed by myself. ASSESSMENT AND PLAN: 43-year-old male with past medical history of obesity, obstructive sleep apnea/ obesity hypoventilation syndrome, on CPAP, insulin- dependent diabetes, gout, anxiety, and depression. Recent chest pain in August 2018 with intermediate stress test and right-sided hypokinesis on echocardiogram, is presenting to the emergency room this evening with complaint of chest pain and dizziness with associated hyperglycemia. 1. Chest pain. The patient had reassuring EKG and negative troponins for acute coronary syndrome though his echocardiogram with right-sided hypokinesis and recent stress test puts him at a higher risk along with his ongoing hyperglycemia and uncontrolled diabetes. It is reasonable to admit the patient and further consult Cardiology as he is undergoing outpatient cardiac workup and his chest pain is still present at the time of interview in the emergency room and not resolved by improving his hyperglycemia. --Consulted Cardiology to determine if inpatient catheterization is warranted and likely would also benefit from right heart cath versus optimizing his ongoing inciting risk factors for example his hyperglycemia to avoid these events. Continue aspirin, statin, beta-madalyn, and continue Lasix given most recent findings with right-sided CHF. He appears euvolemic on current exam. 2. Dizziness. We will obtain orthostatics, although he reports his dizziness has improved since treating his hyperglycemia. His ALEXA inhibitor was discontinued on last visit. We will resume his home medication including his Lasix, given above chest pain findings and continue to monitor. 3. Insulin-dependent diabetes. We will add on A1c. This one was not done on last hospitalization. He is on Lantus 35 units q.p.m. and 40 units q.a.m. on . We will half his a.m. dose to 20 units given n.p.o., status. He does follow with Endocrine at [facility]. He is not on a short-acting insulin likely secondary to not complicating his regimen, but while in the hospital we will add low-dose sliding scale insulin even to be given while n.p.o., and this may need to be increased to bolus and sliding scale once the diet is liberalized. We will continue metformin. We will hold home glimepiride and Trulicity as they are nonformulary. He is currently optimized on a statin and his ALEXA inhibitor was discontinued on last hospitalization secondary to orthostasis. 4. Obstructive sleep apnea/obesity hypoventilation syndrome. He is currently on CPAP. He has got his home equipment. We will continue. 5. ?Pulmonary hypertension. Right hypokinesis on echocardiogram with right ventricular systolic pressure increased. Again, he is euvolemic on my exam although his habitus makes volume status difficult to ascertain. We will continue Lasix and right heart cath may be warranted in the near future to determine if he has significant pulmonary hypertension. 6. Gout. Continue home allopurinol. 7. Depression/anxiety. Continue home mirtazapine, bupropion, Abilify. 8. Asthma/active airway disease. Continue his home inhalers. 9. DVT prophylaxis: The patient is a high risk, placed on Lovenox. 10. FEN: Currently n.p.o. Pending cardiology consult and determination if any advanced diagnostics are to take place. 11. Disposition: Observation to [address] [place] [address]. Needs cardiac consult. 12. Code status is full. TIME SPENT: Forty-five minutes was spent in the planning of this admission; over half of that spent directly at the bedside with the patient providing direct patient care. Plan of care is discussed with the patient and his , who agree with admission. [id number]/[facility] #: [id number] MTDD
[2018-10-25] MEDS: Mometasone/Formoter 200/5 MDI INH SCH ×2 (07:26→21:02)
[2018-10-25] MEDS: Insulin LISPRO* 1 UNITS UNIT SUBCUT SCH ×4 (07:56→20:58)
[2018-10-25] MEDS ORDERED: Atorvastatin* 80 MG TAB PO ONE (08:58)
[2018-10-25] MEDS ORDERED: Insulin GLARGINE(*) 1 UNITS UNIT SUBCUT SCH (09:00)
--- NOTE | 2018-10-25 09:30 | PN ---
Subjective Date of Service: 10/25/18 Interval History: Pt's chest pain resolving currently ECG 20pm yesterday, II. V1-V3 T wave inversion which was present previously Glucose trending down at 280+ with current 20U lantus in the morning, no acidosis Noted cardiology potentially may cath him today. Objective Active Medications: Acetaminophen (Tylenol Tab*) 650 mg PO Q6H PRN PRN Reason: PAIN - MILD Albuterol (Ventolin Hfa Inhaler*) 2 puff INH Q4H PRN PRN Reason: SOB/WHEEZING Allopurinol (Zyloprim Tab*) 200 mg PO BID [facility] Aripiprazole (Abilify Tab*) 5 mg PO BEDTIME [facility] Aspirin (Aspirin 81 Mg Chew Tab*) 81 mg PO DAILY [facility] Atorvastatin Calcium (Lipitor*) 40 mg PO 2100 [facility] Bupropion HCl (Wellbutrin Xl *) 150 mg PO DAILY [facility] Carvedilol (Coreg Tab*) 3.125 mg PO BID [facility] Dextrose (Dextrose 50% Vial 50 Ml*) 25 ml IV PUSH .FOR FS < 60 - SS PRN PRN Reason: FS < 60 Enoxaparin Sodium (Lovenox(*)) 40 mg SUBCUT Q24H [facility] Last Admin: 10/25/18 05:53 Dose: 40 mg Furosemide (Lasix Tab*) 40 mg PO DAILY [facility] Insulin Glargine (Lantus(*)) 35 units SUBCUT QPM [facility] Insulin Glargine (Lantus(*)) 20 units SUBCUT QAM [facility] Insulin Human Lispro (Humalog*) 0 units SUBCUT ACHS [facility]; Protocol Last Admin: 10/25/18 07:56 Dose: Not Given Metformin HCl (Glucophage*) 1,000 mg PO BID [facility] Mirtazapine (Remeron Tab*) 15 mg PO BEDTIME [facility] Mometasone Furoate/Formoterol Fumar (Dulera 200/5 Mdi*) 2 puff INH BID [facility] Last Admin: 10/25/18 07:26 Dose: 2 puff Nystatin (Nystatin Top Powder*) 1 applic TOPICAL BID [facility] Vital Signs - 8 hr 10/25/18 10/25/18 10/25/18 01:52 02:00 03:04 Temperature 98.7 F Pulse Rate 84 83 83 Respiratory 36 33 18 Rate Blood Pressure 126/79 129/79 (mmHg) O2 Sat by Pulse 93 93 93 Oximetry 10/25/18 10/25/18 10/25/18 03:10 03:33 07:28 Temperature 96.8 F 97.5 F Pulse Rate 82 76 75 Respiratory 24 16 18 Rate Blood Pressure 132/98 113/59 (mmHg) O2 Sat by Pulse 95 97 95 Oximetry Oxygen Devices in Use Now: None Exam: General - NAD, mobid obese, lying on bed comfortably Eyes - PERRLA, EOM intact HEENT- no abnormality Lymph Nodes - No lymphadenopathy Cardiovascular - unable to hear heart sound Lungs -unable to hear Skin - No rashes, skin warm and dry, no erythematous areas Abdomen - Normal bowel sounds, abdomen soft and nontender Extremeties - No edema, cyanosis or clubbing Musculo Skeletal - 5/5 strength, normal range of motion, no swollen or erythematous joints. Neurological Alert and oriented x 3, CN 2-12 grossly intact. Result Diagrams: 10/24/18 21:22 10/24/18 21:22 Assess/Plan/Problems-Billing Assessment: 43 y/o gentleman with history of mobid obesity, IDDM, NILES/OHS, CAD, admitted for chest pain lasting for hours. He had recent stress test showing intermediate risk, also had syncope episode recently. Although cardiac enzyme is negative, he is high risk for MO. - Patient Problems (1) Chest pain Current Visit: Yes Status: Acute Code(s): R07.9 - CHEST PAIN, UNSPECIFIED SNOMED Code(s): 87807027 Comment: right and left heart cath today (2) Full code status Current Visit: No Status: Acute Code(s): Z78.9 - OTHER SPECIFIED HEALTH STATUS SNOMED Code(s): 609344228 (3) Asthma Current Visit: No Status: Chronic Code(s): J45.909 - UNSPECIFIED ASTHMA, UNCOMPLICATED SNOMED Code(s): 328889130 Comment: - Controlled. - Continue Dulera BID and albuterol prn (4) Diabetes Current Visit: No Status: Chronic Code(s): E11.9 - TYPE 2 DIABETES MELLITUS WITHOUT COMPLICATIONS SNOMED Code(s): 02473707 Comment: - Uncontrolled - Lantus 60-40U at home - cut half today for procedure (5) HTN (hypertension) Current Visit: No Status: Chronic Code(s): I10 - ESSENTIAL (PRIMARY) HYPERTENSION SNOMED Code(s): 34609259 Comment: - continue home med (6) Morbid obesity with BMI of 60.0-69.9, adult Current Visit: No Status: Chronic Code(s): E66.01 - MORBID (SEVERE) OBESITY DUE TO EXCESS CALORIES; Z68.44 - BODY MASS INDEX (BMI) 60.0-69.9, ADULT SNOMED Code(s): 304871063 Comment: supportive care (7) Sleep apnea Current Visit: No Status: Chronic Code(s): G47.30 - SLEEP APNEA, UNSPECIFIED SNOMED Code(s): 24092853 Comment: - Continue home C-PAP (8) DVT prophylaxis Current Visit: No Status: Acute Priority: Low Code(s): VLX6084 - SNOMED Code(s): 472944045 Comment: - subQ Heparin Status and Disposition: Inpatient Medicine Attestation Documenting Resident: Ekaterina Apodaca Supervising Physician: David Orozco Attestation: This service has been performed in part by a resident under the direction of a teaching physician.I, David Orozco, performed the service, or was physically present during the critical, or schmitt portions of the service, furnished by the resident. I participated in the management of the patient.
[2018-10-25] MEDS: Allopurinol TAB* 100 MG PO SCH ×2 (10:04→20:58)
[2018-10-25] MEDS: BuPROPion XL* 150 MG TAB.XL PO SCH (10:04)
[2018-10-25] MEDS: metFORMIN* 1,000 MG TAB PO SCH ×2 (10:05→20:57)
[2018-10-25] MEDS: Furosemide TAB* 40 MG PO SCH (10:05)
[2018-10-25] MEDS: Carvedilol TAB* 3.125 MG PO SCH ×2 (10:09→20:57)
[2018-10-25] MEDS: Aspirin 81 mg CHEW TAB* 81 MG TAB.CHEW PO SCH (10:10)
[2018-10-25] MEDS: Nystatin TOP POWDER* 15 GM BTL TOPICAL SCH ×2 (10:11→22:49)
[2018-10-25] MEDS ORDERED: Diazepam TAB(*) 5 MG PO PRN (12:27)
[2018-10-25] MEDS ORDERED: diPHENhydraMINE PO* 50 MG PO PRN (12:27)
[2018-10-25] MEDS: NS 0.9% 1000 ML** 1,000 ML IV SCH ×2 (13:06→20:07)
[2018-10-25] MEDS ORDERED: fentaNYL* 50 MCG/ML 2 ML VIAL (100 MCG VIAL) ONE (14:16)
[2018-10-25] MEDS ORDERED: Heparin(*) 1000 UNIT/ML 10 ML VIAL CATH LAB IV ONE (14:16)
[2018-10-25] MEDS ORDERED: Midazolam* 1 MG/ML 5 ML VIAL (5 MG) ONE (14:16)
[2018-10-25] MEDS ORDERED: nitroGLYCERIN DRIP* 25,000 MCG/250 ML BTL ONE (14:17)
[2018-10-25] MEDS ORDERED: VERAPAMIL 2.5 MG/ML 2 ML VIAL ** 5 mg/2 ml ONE (14:17)
[2018-10-25] MEDS ORDERED: Iohexol 350 (CONTRAST) 200 ML MDV IV ONE (14:17)
[2018-10-25] MEDS ORDERED: Lidocaine 1% INJ* 10 MG/ML 30 ML SDV ONE (14:17)
[2018-10-25] MEDS ORDERED: Heparin 2 UNITS/ML IVPREMIX* 3,000 UNIT/1,500 ML BAG IV ONE (14:17)
[2018-10-25 16:12] LABS: POC SO2 50 %
[2018-10-25] MEDS ORDERED: NS 0.9% 1000 ML** 1,000 ML IV SCH (16:15)
[2018-10-25] MEDS ORDERED: CMCS: Sildenafil (PULMONARY)(NF) 20 MG TAB PO SCH (18:00)
[2018-10-25] MEDS: Insulin GLARGINE(*) 1 UNITS UNIT SUBCUT SCH (18:39)
--- NOTE | 2018-10-25 20:02 | CONSULT ---
Subjective Date of Service: 10/25/18 - CC: CP Interval History: Full dictation to be done. See ECHO VASCULAR TECHNOLOGIST prelim written note done this AM. I personally saw and examined the patient. Pt followed by Dr Jerez ([place]) PMHx: DM II, HTN, Supermorid obesity, NILES, gout, asthma, depression with work up for atypical CP, pleuritic. Fluticasone-Salmeterol 500-50* [Advair Diskus 500-50*] 1 puff INH BID 11/15/12 [ History Confirmed 10/24/18] Albuterol HFA INHALER* [Ventolin HFA Inhaler*] 2 puff INH Q4H PRN 04/04/16 [ History Confirmed 10/24/18] ARIPiprazole TAB* [Abilify TAB*] 5 mg PO BEDTIME 07/21/17 [History Confirmed ] Allopurinol TAB* [Zyloprim 100 MG TAB*] 200 mg PO BID 07/21/17 [History Confirmed 10/24/18] Dulaglutide (NF) [Trulicity (NF)] 1.5 mg SUBCUT WEEKLY 07/21/17 [History Confirmed 10/24/18] Glimepiride (NF) 4 mg PO BID 07/21/17 [History Confirmed 10/24/18] Mirtazapine TAB* [Remeron TAB*] 15 mg PO BEDTIME 07/21/17 [History Confirmed ] Dextran 70/Hypromellose/Pf [Genteal Tears 0.1%-0.3% Drop] 2 drop BOTH EYES Q3HR PRN 09/20/18 [History Confirmed 10/24/18] Furosemide TAB* [Lasix TAB*] 40 mg PO DAILY 09/20/18 [History Confirmed 10/24/18 ] Insulin GLARGINE(*) [Lantus(*)] 35 units SUBCUT QPM 09/20/18 [History Confirmed 10/24/18] Insulin GLARGINE(*) [Lantus(*)] 40 units SUBCUT QAM 09/20/18 [History Confirmed 10/24/18] LoraTADine TAB(NF) [Claritin 10 MG TAB(NF)] 10 mg PO DAILY 09/20/18 [History Confirmed 10/24/18] Nystatin TOP POWDER* 1 applic TOPICAL BID 09/20/18 [History Confirmed 10/24/18] metFORMIN* [Glucophage 1000 MG TAB *] 1,000 mg PO BID 09/20/18 [History Confirmed 10/24/18] Aspirin 81 mg PO DAILY #30 tab.chew 09/25/18 [Rx Confirmed 10/24/18] Carvedilol TAB* [Coreg TAB*] 3.125 mg PO BID #60 tab 09/25/18 [Rx Confirmed ] ceFUROXime TAB(*) [Ceftin TAB 250 MG(*)] 500 mg PO BID #10 tab 09/25/18 [Rx Confirmed 10/24/18] Bupropion XL* [Wellbutrin XL *] 150 mg PO DAILY 10/25/18 [History Confirmed ] ROS: Pleuritic CP. Dizzy with position changes, sitting up. Obese, nasal CPAP, nasal on lying 30 degrees. Distant BS, no w,r,rhonci Distant heart sounds, no murmurs. Obese abdoman, soft, non tender. LE obese, brauny edema, mild in lower legs Family History: Unchanged from Admission - +CAD mother Past Medical History: Unchanged from Admission Medications Active Medications: Acetaminophen (Tylenol Tab*) 650 mg PO Q6H PRN PRN Reason: PAIN - MILD Albuterol (Ventolin Hfa Inhaler*) 2 puff INH Q4H PRN PRN Reason: SOB/WHEEZING Allopurinol (Zyloprim Tab*) 200 mg PO BID [facility] Last Admin: 10/25/18 10:04 Dose: 200 mg Aripiprazole (Abilify Tab*) 5 mg PO BEDTIME [facility] Aspirin (Aspirin 81 Mg Chew Tab*) 81 mg PO DAILY [facility] Last Admin: 10/25/18 10:10 Dose: 81 mg Atorvastatin Calcium (Lipitor*) 40 mg PO 2100 [facility] Bupropion HCl (Wellbutrin Xl *) 150 mg PO DAILY [facility] Last Admin: 10/25/18 10:04 Dose: 150 mg Carvedilol (Coreg Tab*) 3.125 mg PO BID [facility] Last Admin: 10/25/18 10:09 Dose: 3.125 mg Dextrose (Dextrose 50% Vial 50 Ml*) 25 ml IV PUSH .FOR FS < 60 - SS PRN PRN Reason: FS < 60 Diazepam (Valium Tab(*)) 5 mg PO ONCE PRN 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 Diphenhydramine HCl (Benadryl Po*) 50 mg PO ONCE PRN PRN 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 Enoxaparin Sodium (Lovenox(*)) 40 mg SUBCUT Q24H [facility] Last Admin: 10/25/18 05:53 Dose: 40 mg Furosemide (Lasix Tab*) 40 mg PO DAILY [facility] Last Admin: 10/25/18 10:05 Dose: 40 mg Sodium Chloride (Ns 0.9% 1000 Ml) 1,000 mls @ 100 mls/hr IV .per rate [facility] Last Admin: 10/25/18 13:06 Dose: 100 mls/hr Insulin Glargine (Lantus(*)) 35 units SUBCUT QPM [facility] Last Admin: 10/25/18 18:39 Dose: 35 units Insulin Glargine (Lantus(*)) 20 units SUBCUT QAM [facility] Last Admin: 10/25/18 10:11 Dose: 20 units Insulin Human Lispro (Humalog*) 0 units SUBCUT ACHS [facility]; Protocol Last Admin: 10/25/18 18:10 Dose: Not Given Metformin HCl (Glucophage*) 1,000 mg PO BID [facility] Last Admin: 10/25/18 10:05 Dose: 1,000 mg Mirtazapine (Remeron Tab*) 15 mg PO BEDTIME [facility] Mometasone Furoate/Formoterol Fumar (Dulera 200/5 Mdi*) 2 puff INH BID [facility] Last Admin: 10/25/18 07:26 Dose: 2 puff Nystatin (Nystatin Top Powder*) 1 applic TOPICAL BID [facility] Last Admin: 10/25/18 10:11 Dose: 1 applic Sildenafil Citrate (Revatio (Nf)) 20 mg PO DAILY [facility]; Protocol Last Admin: 10/25/18 18:40 Dose: 20 mg Home Medications: Fluticasone-Salmeterol 500-50* [Advair Diskus 500-50*] 1 puff INH BID 11/15/12 [ History Confirmed 10/24/18] Albuterol HFA INHALER* [Ventolin HFA Inhaler*] 2 puff INH Q4H PRN 04/04/16 [ History Confirmed 10/24/18] ARIPiprazole TAB* [Abilify TAB*] 5 mg PO BEDTIME 07/21/17 [History Confirmed ] Allopurinol TAB* [Zyloprim 100 MG TAB*] 200 mg PO BID 07/21/17 [History Confirmed 10/24/18] Dulaglutide (NF) [Trulicity (NF)] 1.5 mg SUBCUT WEEKLY 07/21/17 [History Confirmed 10/24/18] Glimepiride (NF) 4 mg PO BID 07/21/17 [History Confirmed 10/24/18] Mirtazapine TAB* [Remeron TAB*] 15 mg PO BEDTIME 07/21/17 [History Confirmed ] Dextran 70/Hypromellose/Pf [Genteal Tears 0.1%-0.3% Drop] 2 drop BOTH EYES Q3HR PRN 09/20/18 [History Confirmed 10/24/18] Furosemide TAB* [Lasix TAB*] 40 mg PO DAILY 09/20/18 [History Confirmed 10/24/18 ] Insulin GLARGINE(*) [Lantus(*)] 35 units SUBCUT QPM 09/20/18 [History Confirmed 10/24/18] Insulin GLARGINE(*) [Lantus(*)] 40 units SUBCUT QAM 09/20/18 [History Confirmed 10/24/18] LoraTADine TAB(NF) [Claritin 10 MG TAB(NF)] 10 mg PO DAILY 09/20/18 [History Confirmed 10/24/18] Nystatin TOP POWDER* 1 applic TOPICAL BID 09/20/18 [History Confirmed 10/24/18] metFORMIN* [Glucophage 1000 MG TAB *] 1,000 mg PO BID 09/20/18 [History Confirmed 10/24/18] Aspirin 81 mg PO DAILY #30 tab.chew 09/25/18 [Rx Confirmed 10/24/18] Carvedilol TAB* [Coreg TAB*] 3.125 mg PO BID #60 tab 09/25/18 [Rx Confirmed ] ceFUROXime TAB(*) [Ceftin TAB 250 MG(*)] 500 mg PO BID #10 tab 09/25/18 [Rx Confirmed 10/24/18] Bupropion XL* [Wellbutrin XL *] 150 mg PO DAILY 10/25/18 [History Confirmed ] Review of Systems - Measurements Intake and Output: Intake and Output Last 24 Hours 10/23/18 10/24/18 10/25/18 10/26/18 04:59 04:59 04:59 04:59 Intake Total 120 Output Total 750 Balance -630 Weight 401 lb Intake: Oral 120 Output: Urine 750 - Review of Systems General Comments: No history per patient, sister of abnormal function as a child, not blue, no unusual SOB/DEJESUS. + syncope 2 weeks ago [facility], standing. Review of Systems Statement: All other review of systems negative, unless stated above. Objective Vital Signs: Temp Pulse Resp BP Pulse Ox 98.7 F 83 16 98/90 94 10/25/18 19:47 10/25/18 19:16 10/25/18 19:16 10/25/18 19:16 10/25/18 19:16 Laboratory Results: 10/24/18 21:22 10/24/18 21:22 INR (Anticoag Therapy) 1.13 (0.82-1.09) H 10/24/18 21:22 APTT 35.9 seconds (26.0-38.0) 10/24/18 21:22 Total Bilirubin 0.60 mg/dL (0.2-1.0) 10/24/18 21:22 AST 12 U/L (13-39) L 10/24/18 21:22 ALT 14 U/L (7-52) 10/24/18 21:22 Alkaline Phosphatase 70 U/L (34-104) 10/24/18 21:22 B-Natriuretic Peptide 83 pg/mL (<=100) 10/24/18 21:22 Total Protein 6.1 g/dL (6.4-8.9) L 10/24/18 21:22 Albumin 3.8 g/dL (3.2-5.2) 10/24/18 21:22 Globulin 2.3 g/dL (2-4) 10/24/18 21:22 Albumin/Globulin Ratio 1.7 (1-3) 10/24/18 21:22 Triglycerides 114 mg/dL 10/25/18 02:39 Cholesterol 120 mg/dL 10/25/18 02:39 LDL Cholesterol 78 mg/dL 10/25/18 02:39 HDL Cholesterol 19.0 mg/dL 10/25/18 02:39 10/24/18 10/25/18 10/25/18 21:22 00:17 02:39 Troponin I 0.01 0.01 0.01 10/25/18 05:20 Troponin I 0.01 Laboratory Results - last 24 hr 10/24/18 10/24/18 10/24/18 20:52 21:22 21:22 WBC 8.6 RBC 5.06 Hgb 14.3 Hct 43 MCV 85 MCH 28 MCHC 34 RDW 15 Plt Count 164 MPV 8.4 Neut % (Auto) 80.6 Lymph % (Auto) 11.4 Blair % (Auto) 5.2 Eos % (Auto) 1.8 Baso % (Auto) 1.0 Absolute Neuts (auto) 6.9 Absolute Lymphs (auto) 1.0 Absolute Monos (auto) 0.4 Absolute Eos (auto) 0.2 Absolute Basos (auto) 0.1 Absolute Nucleated RBC 0.0 Nucleated RBC % 0.0 INR (Anticoag Therapy) 1.13 H APTT 35.9 POC Blood Source POC O2 Saturation VBG pH VBG pCO2 VBG pO2 VBG HCO3 VBG O2 Saturation VBG Base Excess Sodium Potassium Chloride Carbon Dioxide Anion Gap BUN Creatinine Est GFR ( Amer) Est GFR (Non-Af Amer) BUN/Creatinine Ratio Glucose POC Glucose (mg/dL) > 444 H* Glucose Meter Confirm Hemoglobin A1c Calcium Magnesium Total Bilirubin AST ALT Alkaline Phosphatase Troponin I B-Natriuretic Peptide Total Protein Albumin Globulin Albumin/Globulin Ratio Triglycerides Cholesterol LDL Cholesterol HDL Cholesterol 10/24/18 10/24/18 10/24/18 21:22 21:22 21:22 WBC RBC Hgb Hct MCV MCH MCHC RDW Plt Count MPV Neut % (Auto) Lymph % (Auto) Blair % (Auto) Eos % (Auto) Baso % (Auto) Absolute Neuts (auto) Absolute Lymphs (auto) Absolute Monos (auto) Absolute Eos (auto) Absolute Basos (auto) Absolute Nucleated RBC Nucleated RBC % INR (Anticoag Therapy) APTT POC Blood Source POC O2 Saturation VBG pH 7.39 VBG pCO2 42 VBG pO2 < 38.0 VBG HCO3 24.1 VBG O2 Saturation 58.1 L VBG Base Excess 0.3 Sodium 132 L Potassium 4.2 Chloride 99 L Carbon Dioxide 27 Anion Gap 6 BUN 17 Creatinine 0.94 Est GFR ( Amer) 107.0 Est GFR (Non-Af Amer) 88.4 BUN/Creatinine Ratio 18.1 Glucose 436 H POC Glucose (mg/dL) Glucose Meter Confirm 436 H Hemoglobin A1c Calcium 9.0 Magnesium 1.9 Total Bilirubin 0.60 AST 12 L ALT 14 Alkaline Phosphatase 70 Troponin I 0.01 B-Natriuretic Peptide 83 Total Protein 6.1 L Albumin 3.8 Globulin 2.3 Albumin/Globulin Ratio 1.7 Triglycerides Cholesterol LDL Cholesterol HDL Cholesterol 10/24/18 10/25/18 10/25/18 22:17 00:17 00:44 WBC RBC Hgb Hct MCV MCH MCHC RDW Plt Count MPV Neut % (Auto) Lymph % (Auto) Blair % (Auto) Eos % (Auto) Baso % (Auto) Absolute Neuts (auto) Absolute Lymphs (auto) Absolute Monos (auto) Absolute Eos (auto) Absolute Basos (auto) Absolute Nucleated RBC Nucleated RBC % INR (Anticoag Therapy) APTT POC Blood Source POC O2 Saturation VBG pH VBG pCO2 VBG pO2 VBG HCO3 VBG O2 Saturation VBG Base Excess Sodium Potassium Chloride Carbon Dioxide Anion Gap BUN Creatinine Est GFR ( Amer) Est GFR (Non-Af Amer) BUN/Creatinine Ratio Glucose POC Glucose (mg/dL) 337 H 386 H Glucose Meter Confirm Hemoglobin A1c Calcium Magnesium Total Bilirubin AST ALT Alkaline Phosphatase Troponin I 0.01 B-Natriuretic Peptide Total Protein Albumin Globulin Albumin/Globulin Ratio Triglycerides Cholesterol LDL Cholesterol HDL Cholesterol 10/25/18 10/25/18 10/25/18 02:39 02:39 05:20 WBC RBC Hgb Hct MCV MCH MCHC RDW Plt Count MPV Neut % (Auto) Lymph % (Auto) Blair % (Auto) Eos % (Auto) Baso % (Auto) Absolute Neuts (auto) Absolute Lymphs (auto) Absolute Monos (auto) Absolute Eos (auto) Absolute Basos (auto) Absolute Nucleated RBC Nucleated RBC % INR (Anticoag Therapy) APTT POC Blood Source POC O2 Saturation VBG pH VBG pCO2 VBG pO2 VBG HCO3 VBG O2 Saturation VBG Base Excess Sodium Potassium Chloride Carbon Dioxide Anion Gap BUN Creatinine Est GFR ( Amer) Est GFR (Non-Af Amer) BUN/Creatinine Ratio Glucose POC Glucose (mg/dL) Glucose Meter Confirm Hemoglobin A1c 11.2 H Calcium Magnesium Total Bilirubin AST ALT Alkaline Phosphatase Troponin I 0.01 0.01 B-Natriuretic Peptide Total Protein Albumin Globulin Albumin/Globulin Ratio Triglycerides 114 Cholesterol 120 LDL Cholesterol 78 HDL Cholesterol 19.0 10/25/18 10/25/18 10/25/18 07:47 10:09 12:14 WBC RBC Hgb Hct MCV MCH MCHC RDW Plt Count MPV Neut % (Auto) Lymph % (Auto) Blair % (Auto) Eos % (Auto) Baso % (Auto) Absolute Neuts (auto) Absolute Lymphs (auto) Absolute Monos (auto) Absolute Eos (auto) Absolute Basos (auto) Absolute Nucleated RBC Nucleated RBC % INR (Anticoag Therapy) APTT POC Blood Source POC O2 Saturation VBG pH VBG pCO2 VBG pO2 VBG HCO3 VBG O2 Saturation VBG Base Excess Sodium Potassium Chloride Carbon Dioxide Anion Gap BUN Creatinine Est GFR ( Amer) Est GFR (Non-Af Amer) BUN/Creatinine Ratio Glucose POC Glucose (mg/dL) 291 H 276 H 245 H Glucose Meter Confirm Hemoglobin A1c Calcium Magnesium Total Bilirubin AST ALT Alkaline Phosphatase Troponin I B-Natriuretic Peptide Total Protein Albumin Globulin Albumin/Globulin Ratio Triglycerides Cholesterol LDL Cholesterol HDL Cholesterol 10/25/18 16:04 WBC RBC Hgb Hct MCV MCH MCHC RDW Plt Count MPV Neut % (Auto) Lymph % (Auto) Blair % (Auto) Eos % (Auto) Baso % (Auto) Absolute Neuts (auto) Absolute Lymphs (auto) Absolute Monos (auto) Absolute Eos (auto) Absolute Basos (auto) Absolute Nucleated RBC Nucleated RBC % INR (Anticoag Therapy) APTT POC Blood Source Venous POC O2 Saturation 50 VBG pH VBG pCO2 VBG pO2 VBG HCO3 VBG O2 Saturation VBG Base Excess Sodium Potassium Chloride Carbon Dioxide Anion Gap BUN Creatinine Est GFR ( Amer) Est GFR (Non-Af Amer) BUN/Creatinine Ratio Glucose POC Glucose (mg/dL) Glucose Meter Confirm Hemoglobin A1c Calcium Magnesium Total Bilirubin AST ALT Alkaline Phosphatase Troponin I B-Natriuretic Peptide Total Protein Albumin Globulin Albumin/Globulin Ratio Triglycerides Cholesterol LDL Cholesterol HDL Cholesterol Diagnostic Imaging: Patient Name: IDALMIS REDDY Medical Record#: [id number] : 1975 Age: 43 Sex: M Location: [address] [place] [address]/[employer]LE[employer] Exam Date: 09/20/181807 ADM Status: ADM IN CT Angiography Chest With Contrast FINDINGS: Pulmonary arteries: Pulmonary arteries are well opacified to the subsegmental branches. Dilated main pulmonary artery measuring 4 cm. No filling defects throughout the pulmonary artery tree. Aorta: No aortic atherosclerotic calcifications. No aortic dissection, aneurysm, or rupture. Thyroid: No thyroid nodules. Lungs: No pulmonary nodules, masses, or consolidations. No bronchiectasis, peribronchial thickening, or luminal defects. Pleural space: Normal. No pneumothorax. No pleural effusion. Heart: Normal. No cardiomegaly. No pericardial effusion. Lymph nodes: Normal. No enlarged lymph nodes. Bones/joints: No fractures. No suspicious bone lesions. Soft tissues: Normal. IMPRESSION: No pulmonary emboli. Findings which in the proper clinical setting can be seen in pulmonary hypertension. VL LOWER EXT VEINS RIGHT Accession Number: [id number] CPT: 31726 INDICATION: Right calf pain COMPARISON: There are no relevant prior studies available for comparison. TECHNIQUE: Multiple real-time, color flow and Doppler tracings of the right lower extremity were obtained. FINDINGS: Evaluation of calf vessels is difficult due to body habitus. Dr. bates at along the with Dr. Hartley were probably present. The common femoral, femoral, profunda femoral and popliteal veins all demonstrate normal compressibility, augmentation with compression and phasic response with respiration. The posterior tibial and peroneal veins demonstrate normal compressibility and augmentation with compression. IMPRESSION: ALTHOUGH BODY HABITUS LIMITS EVALUATION OF THE CALF VESSELS, THERE IS NO EVIDENCE FOR DEEP VENOUS THROMBOSIS. Procedure: Transthoracic echocardiography was performed. Image quality was suboptimal. Intravenous Definity , 3 mlswas administered. Rhythm: Normal sinus rhythm. Findings Left ventricle: The cavity size is normal. Wall thickness is moderately increased. Systolic function is hyperdynamic. The estimated ejection fraction is 65-70%. Wall motion is normal; there are no regional wall motion abnormalities. There is no consistent Doppler evidence of clinically significant diastolic dysfunction. Right ventricle: The cavity size is mildly to moderately dilated. Systolic function is moderately reduced, possibly greater, the base moves well on long axis views, all other views appear severely hypokinetic. Ventricular septum: There is septal flattening of the interventricular septum consistent with RV volume or pressure overload. Left atrium: The atrium is normal in size. Right atrium: The atrium is moderately dilated. Mitral valve: The leaflets are normal thickness. There is no evidence of stenosis. There is no significant regurgitation. Aortic valve: The leaflets are mildly thickened. There is no evidence of stenosis. There is trace regurgitation. Tricuspid valve: The leaflets are normal thickness. There is no evidence of stenosis. There is trace regurgitation. Pulmonic valve: The leaflets are normal thickness. There is no evidence of stenosis. There is mild to moderate regurgitation. Aorta: The aortic root appears normal. The aortic arch appears normal. Pericardium: There is no significant pericardial effusion. Pulmonary arteries: Not well visualized. Systolic pressure is moderately to severely increased: 54 mmHg. Cardiac cath today: Normal Coronary arteries. Evidence of myocardial bridging mid LAD LVEDP 17. PA pr: 123/55 SBP: 117 Wedge: 23 Sat run incomplete, unable to cannulate the IVC Arterial sat 89% RA sat: 62% RV sat: 54% PA sat: 56% Assessment/Plan 43 yo with sycope 2 weeks ago, SOB, pleuritic CP, abnormal stress test, hyperdynamic LV and hypokinetic and dilated RV. Comorbidities of supermorbid obesity, NILES, DM, HTN. L+R heart cath revealed normal coronary arteries but severe pulmonary hypertension with increased LVEDP but normal wedge pressure. No hx of DVT/PE No hx to suggest intracardiac congenital shunt of any significance. Discussed with Dr Jerez-he recommends consultation with Richardson Bentley for pulmonary HTN. Consider trial of Tadalafil Avoid over diuresis, needs preload with severe pulmonary HTN and RV hypokinesis. Syncope could be on this basis. Consider stopping Coreg, convert CCB. Consider changing DM medications. Continue monitoring as in patient, with severe pulmonary HTN, RV hypokinesis also at risk for ventricular and supraventricular dysrhythmias (and 2ary syncope ). Very high risk patient medically.
[2018-10-25] MEDS: Mirtazapine TAB* 15 MG PO SCH (20:57)
[2018-10-25] MEDS: Atorvastatin* 40 MG TAB PO SCH (20:57)
--- NOTE | 2018-10-25 21:00 | CATH ---
CC: Dr. Lise Davis; Jhoan Zepeda MD, [facility] documentation writer at [facility]; Dr. Becki Finch * CARDIAC CATHETERIZATION REPORT: DATE OF PROCEDURE: 10/25/18 - ROOM #ICU-8 INDICATION FOR PROCEDURE: Asked by Dr. Finch to perform cardiac catheterization in light of the patient presenting with history of chest discomfort with a prior abnormal nuclear stress test and near syncopal episode with moderate to severe pulmonary hypertension on echocardiogram report from prior hospitalization 1 month ago. PROCEDURE: Right heart catheterization, left heart catheterization, left ventriculography, coronary arteriography. CONSENT: The patient was interviewed and examined on the floor of the hospital where the risks and benefits were explained to him and his . He understood them and wished to proceed. PRECARDIAC CATHETERIZATION LABORATORY RESULTS: Hemoglobin and hematocrit of 14.3 and 43 with platelet count of 164,000. BUN and creatinine was 17 and 0.9. Sodium 132, potassium 4.2, chloride 99, bicarb 27. Troponin was 0.01. APPROACH UTILIZED: The right radial artery was assessed under ultrasound and found to be at lower limits of approachable in caliber and a 5-[place] system was to be utilized. The right basilic vein was to be utilized for right heart catheterization. EQUIPMENT UTILIZED: 1. Right radial artery sheath, a 5-[place] Glidesheath slender by [employer]. 2. The basilic vein sheath was a 5-[place] MAYO 11 cm sheath. 3. The diagnostic guidewire utilized was a Adrián regular length wire to initially advance the diagnostic catheter followed by exchangers utilizing a Yoon exchange length curved tip guidewire. 4. The diagnostic coronary arteriography catheter was a 5-[place] TIG4 curved catheter. 5. The left heart catheterization catheter was a 5-[place] PIG short radial catheter. 6. The thermodilution catheter for right heart catheterization was two 5- [place] thermodilution catheters by [employer] were utilized. 7. The closure device for the right radial artery was Vasc Band long sheath. MEDICATIONS GIVEN: The patient received lidocaine locally to both areas for sheath placement. A radial artery cocktail including 300 mcg of nitroglycerin, 3 mg verapamil and 3000 mg of heparin were initially given with an additional 1500 units of heparin given as soon as the aortic area was cannulated. DESCRIPTION OF PROCEDURE: Following that coronary arteriography was performed. After that left heart catheterization was performed and left ventriculography was performed. Following that right heart catheterization was performed and initially the catheter was advanced to the RA and sample was drawn. There was some difficulty trying to get into the right ventricle but when the right ventricle was entered, severe systolic pressure was noted. Of note, the pressure transfuser was recalibrated to make sure there was no error and the pressures were found to be similar. Of note, drawing back blood with this catheter was somewhat slow and as such this catheter was removed and a completely new 5-[place] Citizen thermodilution catheter was utilized and advanced all the way to wedge position. Additional samples were drawn in the RV and in the PA. Arterial saturation was performed as well. Following that thermodilution cardiac outputs were performed. At the end of the case, the catheters were removed and the cephalic vein sheath was left in placed to be pulled in 30 to 45 minutes and the arterial sheath was removed and hemostasis was obtained with the Vasc Band. The total contrast utilized was 70 cc of Omnipaque dye. The radiation exposure included 13.2 minutes of fluoro time. The air kerma radiation was 2930 mGy, the DAP radiation was 17,822 microgray/m2. RESULTS: HEMODYNAMIC DATA: RIGHT HEART CATHETERIZATION: RA mean of 17 mmHg, RV 124/right ventricular and diastolic pressure of 22. PA 120/43 with a mean pressure of 74. Wedge had A waves 23, V waves 22 and a mean of 17-19mmhg. O2 SATURATIONS: 1. Arterial O2 saturation 89%. 2. Right atrial O2 saturation of 62 %. 3. Right ventricle O2 saturation of 54%. 4. PA O2 saturation of 56%. 5. Superior vena cava O2 saturation of 50%. Attempts were made to obtain the inferior vena cava but were unsuccessful with the thermodilution catheter. LEFT HEART CATHETERIZATION: Central aortic pressure recorded at 115/80 with a mean of 96. Left ventricular systolic pressure recorded at 119 mmhg over left ventricular end diastolic pressure of 12 mmhg. CARDIAC OUTPUTS: A. Bertin derived - a cardiac output of 5.4 L/min with an index of 1.9 L/ minute/m2. B. Thermodilution obtained a cardiac output of 9.5 L/min. Cardiac index of 3.4 L/minute/m2 (of note, due to 5-[place] Citizen caliber vessel, injections were somewhat slower than when using a 7-[place] Citizen catheter). LEFT VENTRICULOGRAPHY: Performed in the TIERNEY projection revealed an area of moderate hypokinesis to the mid inferior wall with preservation of the rest of the ventricle, although arrhythmias was noted making overall assessment difficulty. The overall estimated ejection fraction was 60%. CORONARY ARTERIOGRAPHY: A. Left coronary artery: 1. Left main - There was question of mild ostial narrowing of the left main of perhaps 15%. 2. Left anterior descending artery - The left anterior descending artery traversed to the apical region not well onto the distal inferior wall. There was suggestive evidence of mid systolic milking suggesting the presence of a muscle bridge. The degree of milking was dynamic in nature with narrowing as much as 70% during systole with no significant narrowing noted during diastole. The LAD supplied a high first diagonal branch and had a mid diagonal branch with no significant disease noted. 3. Circumflex artery - A nondominant vessel supplying 2 thin first obtuse marginal branches and a third larger size obtuse marginal branch. No significant focal stenosis were stenosis. B. Right coronary artery - A dominant vessel supplying multiple acute marginal branches as well as a PDA and a posterior left ventricular branch. There was no significant obstruction noted throughout the course of these vessels. OVERALL ASSESSMENT: No significant underlying coronary artery disease noted especially to explain focal mid inferior wall hypokinesis. Hemodynamic data suggest the presence of severe pulmonary hypertension. Etiology of the pulmonary hypertension is still to be determined. Of note, the patient has a Pickwickian body habitus and has had sleep apnea for years. Still need to rule out perhaps intracardiac shunting by perhaps a transesophageal echocardiographic analysis with bubble study or MRI may need to be addressed. Chronic thrombembolic disease must also be considered . A discussion of these results was had with Dr. Becki Finch who is the primary documentation writer involved in this patient's care. She will directing recommendations for further workup. [id number]/[facility] #: [id number] [facility]
[2018-10-25] MEDS: ARIPiprazole TAB* 5 MG PO SCH (21:02)
[2018-10-26] MEDS: NS 0.9% 1000 ML** 1,000 ML IV SCH (02:09)
[2018-10-26 05:27] LABS: BUN/Creatinine Ratio 13.7 (8-20); Calcium 8.7 mg/dL (8.6-10.3); EGFR African American 143.3 (>60); EGFR Non-African American 118.4 (>60); Potassium 4.2 mmol/L (3.5-5.0)
--- NOTE | 2018-10-26 07:52 | PN ---
Subjective Date of Service: 10/26/18 Interval History: Patient has no new complaints. He denies chest pain. He is aware of diagnosis of severe pulmonary hypertension. He is willing to go to [place] or [place] for further treatment. Family History: Unchanged from Admission Social History: Unchanged from Admission Past Medical History: Unchanged from Admission Objective Active Medications: Acetaminophen (Tylenol Tab*) 650 mg PO Q6H PRN PRN Reason: PAIN - MILD Albuterol (Ventolin Hfa Inhaler*) 2 puff INH Q4H PRN PRN Reason: SOB/WHEEZING Allopurinol (Zyloprim Tab*) 200 mg PO BID [facility] Last Admin: 10/25/18 20:58 Dose: 200 mg Aripiprazole (Abilify Tab*) 5 mg PO BEDTIME [facility] Last Admin: 10/25/18 21:02 Dose: 5 mg Aspirin (Aspirin 81 Mg Chew Tab*) 81 mg PO DAILY [facility] Last Admin: 10/25/18 10:10 Dose: 81 mg Atorvastatin Calcium (Lipitor*) 40 mg PO 2100 [facility] Last Admin: 10/25/18 20:57 Dose: 40 mg Bupropion HCl (Wellbutrin Xl *) 150 mg PO DAILY [facility] Last Admin: 10/25/18 10:04 Dose: 150 mg Carvedilol (Coreg Tab*) 3.125 mg PO BID [facility] Last Admin: 10/25/18 20:57 Dose: 3.125 mg Dextrose (Dextrose 50% Vial 50 Ml*) 25 ml IV PUSH .FOR FS < 60 - SS PRN PRN Reason: FS < 60 Diphenhydramine HCl (Benadryl Po*) 50 mg PO ONCE PRN 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: 10/26/18 12:26 Enoxaparin Sodium (Lovenox(*)) 40 mg SUBCUT Q24H [facility] Last Admin: 10/25/18 05:53 Dose: 40 mg Furosemide (Lasix Tab*) 40 mg PO DAILY [facility] Last Admin: 10/25/18 10:05 Dose: 40 mg Sodium Chloride (Ns 0.9% 1000 Ml) 1,000 mls @ 125 mls/hr IV .per rate [facility] Last Admin: 10/26/18 02:09 Dose: 125 mls/hr Insulin Glargine (Lantus(*)) 35 units SUBCUT QPM [facility] Last Admin: 10/25/18 18:39 Dose: 35 units Insulin Glargine (Lantus(*)) 20 units SUBCUT QAM [facility] Last Admin: 10/25/18 10:11 Dose: 20 units Insulin Human Lispro (Humalog*) 0 units SUBCUT ACHS [facility]; Protocol Last Admin: 10/25/18 20:58 Dose: 4 units Mirtazapine (Remeron Tab*) 15 mg PO BEDTIME [facility] Last Admin: 10/25/18 20:57 Dose: 15 mg Mometasone Furoate/Formoterol Fumar (Dulera 200/5 Mdi*) 2 puff INH BID [facility] Last Admin: 10/25/18 21:02 Dose: 2 puff Nystatin (Nystatin Top Powder*) 1 applic TOPICAL BID [facility] Last Admin: 10/25/18 22:49 Dose: 1 applic Sildenafil Citrate (Revatio (Nf)) 20 mg PO DAILY [facility]; Protocol Last Admin: 10/25/18 18:40 Dose: 20 mg Vital Signs - 8 hr 10/26/18 10/26/18 10/26/18 00:00 00:01 00:15 Temperature Pulse Rate 72 72 72 Respiratory 7 23 16 Rate Blood Pressure 121/85 (mmHg) O2 Sat by Pulse 92 93 94 Oximetry 10/26/18 10/26/18 10/26/18 00:16 00:30 00:31 Temperature Pulse Rate 72 70 70 Respiratory 15 21 22 Rate Blood Pressure 118/86 136/84 (mmHg) O2 Sat by Pulse 92 94 94 Oximetry 10/26/18 10/26/18 10/26/18 00:45 01:00 01:01 Temperature Pulse Rate 70 70 71 Respiratory 22 21 19 Rate Blood Pressure 144/80 (mmHg) O2 Sat by Pulse 94 95 95 Oximetry 10/26/18 10/26/18 10/26/18 01:15 01:30 01:31 Temperature Pulse Rate 71 70 70 Respiratory 19 20 18 Rate Blood Pressure 127/92 (mmHg) O2 Sat by Pulse 94 95 95 Oximetry 10/26/18 10/26/18 10/26/18 01:45 02:00 02:01 Temperature Pulse Rate 69 68 68 Respiratory 20 17 20 Rate Blood Pressure 134/74 (mmHg) O2 Sat by Pulse 94 93 93 Oximetry 10/26/18 10/26/18 10/26/18 02:15 02:31 02:46 Temperature Pulse Rate 66 70 69 Respiratory 19 13 17 Rate Blood Pressure 136/100 (mmHg) O2 Sat by Pulse 94 94 94 Oximetry 10/26/18 10/26/18 10/26/18 03:00 03:01 03:16 Temperature Pulse Rate 68 69 Respiratory 21 14 20 Rate Blood Pressure 129/80 (mmHg) O2 Sat by Pulse 95 94 Oximetry 10/26/18 10/26/18 10/26/18 03:31 03:38 03:46 Temperature 36.3 C Pulse Rate 67 68 Respiratory 23 18 Rate Blood Pressure 120/92 (mmHg) O2 Sat by Pulse 94 92 Oximetry 10/26/18 10/26/18 10/26/18 04:00 04:01 04:16 Temperature Pulse Rate 67 68 Respiratory 15 16 16 Rate Blood Pressure 130/100 (mmHg) O2 Sat by Pulse 94 93 Oximetry 10/26/18 10/26/18 10/26/18 04:31 04:46 05:00 Temperature Pulse Rate 68 69 69 Respiratory 10 16 24 Rate Blood Pressure 149/85 (mmHg) O2 Sat by Pulse 96 95 95 Oximetry 10/26/18 10/26/18 10/26/18 05:01 05:15 05:30 Temperature Pulse Rate 70 70 67 Respiratory 20 16 15 Rate Blood Pressure 122/82 (mmHg) O2 Sat by Pulse 94 95 91 Oximetry 10/26/18 10/26/18 10/26/18 05:31 05:45 06:00 Temperature Pulse Rate 69 67 70 Respiratory 11 17 18 Rate Blood Pressure 125/93 (mmHg) O2 Sat by Pulse 95 91 92 Oximetry 10/26/18 10/26/18 10/26/18 06:01 06:15 06:30 Temperature Pulse Rate 68 72 69 Respiratory 16 20 17 Rate Blood Pressure 131/84 (mmHg) O2 Sat by Pulse 94 93 95 Oximetry 10/26/18 10/26/18 10/26/18 06:31 06:45 07:00 Temperature Pulse Rate 71 69 70 Respiratory 17 17 17 Rate Blood Pressure 122/88 (mmHg) O2 Sat by Pulse 95 94 93 Oximetry 10/26/18 07:01 Temperature Pulse Rate 70 Respiratory 12 Rate Blood Pressure 136/82 (mmHg) O2 Sat by Pulse 93 Oximetry Oxygen Devices in Use Now: None, CPAP - at night Appearance: alert, no distress Ears/Nose/Mouth/Throat: Clear Oropharnyx Neck: No Thyroid Enlargement, Masses Respiratory: Symmetrical Chest Expansion and Respiratory Effort, Clear to Auscultation Cardiovascular: NL Sounds; No Murmurs; No JVD, RRR Abdominal: NL Sounds; No Tenderness; No Distention, - - massively obses Neurological: Alert and Oriented x 3 Lines/Tubes/Other Access: Clean, Dry and Intact Peripheral IV Nutrition: Taking PO's Result Diagrams: 10/24/18 21:22 10/26/18 04:54 Assess/Plan/Problems-Billing Assessment: 43 y/o gentleman with history of morbid obesity, T2 Diabetes, NILES/OHS, CAD, admitted for chest pain lasting for hours, found to have severe pulmonary hypertension. - Patient Problems (1) Pulmonary hypertension Current Visit: Yes Status: Chronic Priority: High Code(s): I27.20 - PULMONARY HYPERTENSION, UNSPECIFIED SNOMED Code(s): 94928041 Comment: -Right heart cath yesterday demonstrated severe pulmonary HTN. -Normal wedge argues against L-sided causes -Tolerated trial of sildenafil yesterday, will increase to therapeutic dose -Will discuss transfer to care of Dr. Lopez at [facility] with Dr. Finch. (2) Type 2 diabetes mellitus Current Visit: No Status: Acute Priority: Medium Comment: -Sugars running >200 -Increased AM lantus closer to home dose -Metformin on hold due to cath dye, risk of ASIA. -SGLT inhibitor or GLP analogue could be added, help with weight loss. (3) HTN (hypertension) Current Visit: No Status: Chronic Priority: Medium Code(s): I10 - ESSENTIAL (PRIMARY) HYPERTENSION SNOMED Code(s): 77549434 Comment: - stopped coreg, started amlodipine per cardiology recommendations (4) DVT prophylaxis Current Visit: No Status: Acute Priority: Low Code(s): FLW5243 - SNOMED Code(s): 211446645 Comment: - subQ Lovenox Status and Disposition: Inpatient, discussing transfer to [facility].
[2018-10-26] MEDS: Allopurinol TAB* 100 MG PO SCH ×2 (08:08→20:52)
[2018-10-26] MEDS: BuPROPion XL* 150 MG TAB.XL PO SCH (08:08)
[2018-10-26] MEDS: Aspirin 81 mg CHEW TAB* 81 MG TAB.CHEW PO SCH (08:08)
[2018-10-26] MEDS: Enoxaparin(*) 40 MG/0.4 ML SYR SUBCUT SCH (08:08)
[2018-10-26] MEDS: Furosemide TAB* 40 MG PO SCH (08:08)
[2018-10-26] MEDS: Insulin LISPRO* 1 UNITS UNIT SUBCUT SCH ×4 (08:49→20:52)
[2018-10-26] MEDS ORDERED: amLODIPine TAB* 5 MG PO SCH (09:00)
[2018-10-26] MEDS ORDERED: Insulin GLARGINE(*) 1 UNITS UNIT SUBCUT SCH (09:00)
--- NOTE | 2018-10-26 09:18 | PN ---
<Cely Benito - Last Filed: 10/26/18 09:12> Subjective Date of Service: 10/26/18 - Syncope, chest pain severe PHTN Interval History: No events last night, patient states he had an episode of dizziness however, no right radial access pain, chest pain or recurrent syncope. Medications Active Medications: Acetaminophen (Tylenol Tab*) 650 mg PO Q6H PRN PRN Reason: PAIN - MILD Albuterol (Ventolin Hfa Inhaler*) 2 puff INH Q4H PRN PRN Reason: SOB/WHEEZING Allopurinol (Zyloprim Tab*) 200 mg PO BID [facility] Last Admin: 10/26/18 08:08 Dose: 200 mg Amlodipine Besylate (Norvasc Tab*) 2.5 mg PO DAILY [facility] Last Admin: 10/26/18 08:08 Dose: 2.5 mg Aripiprazole (Abilify Tab*) 5 mg PO BEDTIME [facility] Last Admin: 10/25/18 21:02 Dose: 5 mg Aspirin (Aspirin 81 Mg Chew Tab*) 81 mg PO DAILY [facility] Last Admin: 10/26/18 08:08 Dose: 81 mg Atorvastatin Calcium (Lipitor*) 40 mg PO 2100 [facility] Last Admin: 10/25/18 20:57 Dose: 40 mg Bupropion HCl (Wellbutrin Xl *) 150 mg PO DAILY [facility] Last Admin: 10/26/18 08:08 Dose: 150 mg Dextrose (Dextrose 50% Vial 50 Ml*) 25 ml IV PUSH .FOR FS < 60 - SS PRN PRN Reason: FS < 60 Diphenhydramine HCl (Benadryl Po*) 50 mg PO ONCE PRN PRN Reason: 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 Stop: 10/26/18 12:26 Enoxaparin Sodium (Lovenox(*)) 40 mg SUBCUT Q24H [facility] Last Admin: 10/26/18 08:08 Dose: 40 mg Furosemide (Lasix Tab*) 40 mg PO DAILY [facility] Last Admin: 10/26/18 08:08 Dose: 40 mg Insulin Glargine (Lantus(*)) 35 units SUBCUT QPM [facility] Last Admin: 10/25/18 18:39 Dose: 35 units Insulin Glargine (Lantus(*)) 30 units SUBCUT QAM [facility] Last Admin: 10/26/18 08:48 Dose: 30 units Insulin Human Lispro (Humalog*) 0 units SUBCUT ACHS [facility]; Protocol Last Admin: 10/26/18 08:49 Dose: 4 units Mirtazapine (Remeron Tab*) 15 mg PO BEDTIME [facility] Last Admin: 10/25/18 20:57 Dose: 15 mg Mometasone Furoate/Formoterol Fumar (Dulera 200/5 Mdi*) 2 puff INH BID [facility] Last Admin: 10/25/18 21:02 Dose: 2 puff Nystatin (Nystatin Top Powder*) 1 applic TOPICAL BID [facility] Last Admin: 10/25/18 22:49 Dose: 1 applic Sildenafil Citrate (Revatio (Nf)) 40 mg PO DAILY [facility]; Protocol Objective Vital Signs: Temp Pulse Resp BP Pulse Ox 97.5 F 70 12 136/82 93 10/26/18 08:00 10/26/18 07:01 10/26/18 07:01 10/26/18 07:01 10/26/18 07:01 Oxygen Devices in Use Now: None, CPAP - at night Appearance: Sitting in up in bed A+ Ox3 cooperative with exam. NAD Ears/Nose/Mouth/Throat: NL Teeth, Lips, Gums, Mucous Membranes Moist Neck: NL Appearance and Movements; NL JVP, Trachea Midline Respiratory: Symmetrical Chest Expansion and Respiratory Effort, Clear to Auscultation Cardiovascular: NL Sounds; No Murmurs; No JVD Neurological: Alert and Oriented x 3 Lines/Tubes/Other Access: Clean, Dry and Intact Peripheral IV Laboratory Results: 10/24/18 21:22 10/26/18 04:54 INR (Anticoag Therapy) 1.13 (0.82-1.09) H 10/24/18 21:22 APTT 35.9 seconds (26.0-38.0) 10/24/18 21:22 Total Bilirubin 0.60 mg/dL (0.2-1.0) 10/24/18 21:22 AST 12 U/L (13-39) L 10/24/18 21:22 ALT 14 U/L (7-52) 10/24/18 21:22 Alkaline Phosphatase 70 U/L (34-104) 10/24/18 21:22 B-Natriuretic Peptide 83 pg/mL (<=100) 10/24/18 21:22 Total Protein 6.1 g/dL (6.4-8.9) L 10/24/18 21:22 Albumin 3.8 g/dL (3.2-5.2) 10/24/18 21:22 Globulin 2.3 g/dL (2-4) 10/24/18 21:22 Albumin/Globulin Ratio 1.7 (1-3) 10/24/18 21:22 Triglycerides 114 mg/dL 10/25/18 02:39 Cholesterol 120 mg/dL 10/25/18 02:39 LDL Cholesterol 78 mg/dL 10/25/18 02:39 HDL Cholesterol 19.0 mg/dL 10/25/18 02:39 10/24/18 10/25/18 10/25/18 21:22 00:17 02:39 Troponin I 0.01 0.01 0.01 10/25/18 05:20 Troponin I 0.01 Laboratory Results - last 24 hr 10/25/18 10/25/18 10/25/18 02:39 02:39 10:09 POC Blood Source POC O2 Saturation Sodium Potassium Chloride Carbon Dioxide Anion Gap BUN Creatinine Est GFR ( Amer) Est GFR (Non-Af Amer) BUN/Creatinine Ratio Glucose POC Glucose (mg/dL) 276 H Hemoglobin A1c 11.2 H Calcium Triglycerides 114 Cholesterol 120 LDL Cholesterol 78 HDL Cholesterol 19.0 10/25/18 10/25/18 10/25/18 12:14 16:04 18:36 POC Blood Source Venous POC O2 Saturation 50 Sodium Potassium Chloride Carbon Dioxide Anion Gap BUN Creatinine Est GFR ( Amer) Est GFR (Non-Af Amer) BUN/Creatinine Ratio Glucose POC Glucose (mg/dL) 245 H 85 Hemoglobin A1c Calcium Triglycerides Cholesterol LDL Cholesterol HDL Cholesterol 10/25/18 10/26/18 10/26/18 20:46 04:54 08:16 POC Blood Source POC O2 Saturation Sodium 133 L Potassium 4.2 Chloride 104 Carbon Dioxide 22 Anion Gap 7 BUN 10 Creatinine 0.73 Est GFR ( Amer) 143.3 Est GFR (Non-Af Amer) 118.4 BUN/Creatinine Ratio 13.7 Glucose 228 H POC Glucose (mg/dL) 248 H 246 H Hemoglobin A1c Calcium 8.7 Triglycerides Cholesterol LDL Cholesterol HDL Cholesterol Diagnostic Imaging: Patient Name: NATANAEL REDDYJULISSA Murillo Medical Record#: [id number] : 1975 Age: 43 Sex: M Location: [address] [place] [address] MEDICAL/TELEMETRY Exam Date: 09/20/181807 ADM Status: ADM IN CT Angiography Chest With Contrast FINDINGS: Pulmonary arteries: Pulmonary arteries are well opacified to the subsegmental branches. Dilated main pulmonary artery measuring 4 cm. No filling defects throughout the pulmonary artery tree. Aorta: No aortic atherosclerotic calcifications. No aortic dissection, aneurysm, or rupture. Thyroid: No thyroid nodules. Lungs: No pulmonary nodules, masses, or consolidations. No bronchiectasis, peribronchial thickening, or luminal defects. Pleural space: Normal. No pneumothorax. No pleural effusion. Heart: Normal. No cardiomegaly. No pericardial effusion. Lymph nodes: Normal. No enlarged lymph nodes. Bones/joints: No fractures. No suspicious bone lesions. Soft tissues: Normal. IMPRESSION: No pulmonary emboli. Findings which in the proper clinical setting can be seen in pulmonary hypertension. VL LOWER EXT VEINS RIGHT Accession Number: [id number] CPT: 65265 INDICATION: Right calf pain COMPARISON: There are no relevant prior studies available for comparison. TECHNIQUE: Multiple real-time, color flow and Doppler tracings of the right lower extremity were obtained. FINDINGS: Evaluation of calf vessels is difficult due to body habitus. Dr. bates at along the with Dr. Hartley were probably present. The common femoral, femoral, profunda femoral and popliteal veins all demonstrate normal compressibility, augmentation with compression and phasic response with respiration. The posterior tibial and peroneal veins demonstrate normal compressibility and augmentation with compression. IMPRESSION: ALTHOUGH BODY HABITUS LIMITS EVALUATION OF THE CALF VESSELS, THERE IS NO EVIDENCE FOR DEEP VENOUS THROMBOSIS. Procedure: Transthoracic echocardiography was performed. Image quality was suboptimal. Intravenous Definity , 3 mlswas administered. Rhythm: Normal sinus rhythm. Findings Left ventricle: The cavity size is normal. Wall thickness is moderately increased. Systolic function is hyperdynamic. The estimated ejection fraction is 65-70%. Wall motion is normal; there are no regional wall motion abnormalities. There is no consistent Doppler evidence of clinically significant diastolic dysfunction. Right ventricle: The cavity size is mildly to moderately dilated. Systolic function is moderately reduced, possibly greater, the base moves well on long axis views, all other views appear severely hypokinetic. Ventricular septum: There is septal flattening of the interventricular septum consistent with RV volume or pressure overload. Left atrium: The atrium is normal in size. Right atrium: The atrium is moderately dilated. Mitral valve: The leaflets are normal thickness. There is no evidence of stenosis. There is no significant regurgitation. Aortic valve: The leaflets are mildly thickened. There is no evidence of stenosis. There is trace regurgitation. Tricuspid valve: The leaflets are normal thickness. There is no evidence of stenosis. There is trace regurgitation. Pulmonic valve: The leaflets are normal thickness. There is no evidence of stenosis. There is mild to moderate regurgitation. Aorta: The aortic root appears normal. The aortic arch appears normal. Pericardium: There is no significant pericardial effusion. Pulmonary arteries: Not well visualized. Systolic pressure is moderately to severely increased: 54 mmHg. Cardiac cath today: Normal Coronary arteries. Evidence of myocardial bridging mid LAD LVEDP 17. PA pr: 123/55 SBP: 117 Wedge: 23 Sat run incomplete, unable to cannulate the IVC Arterial sat 89% RA sat: 62% RV sat: 54% PA sat: 56% EKG Data: Telemetry reviewed; Sinus rhythm 80 no VT Assessment/Plan #1 Severe Pulmonary HTN; normal wedge pressure. LPA 120/43. On Sildenofil trial but only daily dosing? Prior CTA neg for PE. Has not had STAN to r/o intracardiac shunting. I paged Dr. Lopez at [facility] awaiting call back to determine if patient should be transferred given high risk clinical symptoms (syncope). I discontinued Lasix this morning. He is no longer on Bblocker therapy. If Dr. Lopez does not believe that patient needs to be transferred will consider involving Dr. Locke. #2 h/o HTN; on Norvasc. SBP 140's now. Trial of Sildenofil was started. #3 h/o DM; differ to primary team #4 Disposition pending course. Tolerating Sildenofil. awaiting Dr. Lopez to call me back to review case and necessity of transfer. Attending: Luh Hdz <Luh Hdz - Last Filed: 10/27/18 12:16> Subjective Interval History: 8.30.2019 12:15 pm: lengthy d/w Dr Rodriguez, Dr Lopez and pt seen and examined. D/ w GOAT HERDER A Jigna. Pt with severe PHTN of unclear etiology. Pt to be transferred to [facility] for further Rx as per Dr Lopez. Objective Vital Signs: Temp Pulse Resp BP Pulse Ox 96.6 F 89 31 145/98 95 10/26/18 20:00 10/26/18 22:01 10/26/18 22:01 10/26/18 22:01 10/26/18 22:01 Laboratory Results: 10/24/18 21:22 10/26/18 04:54 INR (Anticoag Therapy) 1.13 (0.82-1.09) H 10/24/18 21:22 APTT 35.9 seconds (26.0-38.0) 10/24/18 21:22 Total Bilirubin 0.60 mg/dL (0.2-1.0) 10/24/18 21:22 AST 12 U/L (13-39) L 10/24/18 21:22 ALT 14 U/L (7-52) 10/24/18 21:22 Alkaline Phosphatase 70 U/L (34-104) 10/24/18 21:22 B-Natriuretic Peptide 83 pg/mL (<=100) 10/24/18 21:22 Total Protein 6.1 g/dL (6.4-8.9) L 10/24/18 21:22 Albumin 3.8 g/dL (3.2-5.2) 10/24/18 21:22 Globulin 2.3 g/dL (2-4) 10/24/18 21:22 Albumin/Globulin Ratio 1.7 (1-3) 10/24/18 21:22 Triglycerides 114 mg/dL 10/25/18 02:39 Cholesterol 120 mg/dL 10/25/18 02:39 LDL Cholesterol 78 mg/dL 10/25/18 02:39 HDL Cholesterol 19.0 mg/dL 10/25/18 02:39 10/24/18 10/25/18 10/25/18 21:22 00:17 02:39 Troponin I 0.01 0.01 0.01 10/25/18 05:20 Troponin I 0.01
[2018-10-26 09:54] LABS: POC SO2 89 %
[2018-10-26 09:54] LABS: POC SO2 54 %
[2018-10-26 09:54] LABS: POC SO2 56 %
[2018-10-26 09:54] LABS: POC SO2 62 %
--- NOTE | 2018-10-26 11:41 | CONS ---
CC: Dr. Trevor Zepeda * CONSULTATION REPORT: DATE OF CONSULT: 10/25/18 ATTENDING PHYSICIAN: Dr. Becki Finch, Cardiology.* (DICTATED BY THALIA REY NP) PRIMARY MH TEACHER: Dr. Trevor Zepeda CHIEF COMPLAINT: Syncope, chest pain, and dizziness. HISTORY OF PRESENT ILLNESS: This is a pleasant 43-year-old morbidly obese male patient with a notable history of diabetes, hypertension, abnormal Lexiscan stress test August 2018 that showed [id number] anterior ischemia, who has been following Dr. Trevor Zepeda. According to the patient, since being discharged at the end of August 2018, he has not been feeling well. He has had multiple episodes of dizziness. Apparently, he had his first episode of syncope last Tuesday. He adds that last Tuesday he checked his blood sugar in the morning, it was 218. He drove to a local food pantry where he sat in his car for several hours waiting for it to open. Around 1 p.m. after the food pantry opened, he was able to get out of his vehicle to get the food at the food pantry. On his way out to the car, he had a syncopal episode. He denies prodromal symptoms. He states he woke up on the ground. Denies hitting head. Episode was not witnessed; however, after the episode occurred, he did have persistent lightheadedness. No chest pain. Did have diaphoresis. Apparently, since then on Tuesday while driving to [facility] to burr picker his family member, he had a pullover because of profound dizziness. He states the episode eventually resolved and he was able to finish his drive. He denies recurrent loss of consciousness. Apparently, yesterday evening 10/23/18, he started to develop substernal chest discomfort radiating to his back with associated lightheadedness and diaphoresis. Episode was persistent, worse with lying in supine position and inspiration. Thus, he presented to [facility]. Enzymes have been negative. No acute ECG changes. However, Dr. Trevor Zepeda saw and evaluated the patient last week and arranged for an outpatient right and left heart catheterization. Thus, we were asked to see the patient in consultation. Last echocardiogram according to our medical records was 09/20/18. Per report, LVEF 65% to 70%, [id number] RV dilatation, moderate right atrial dilatation, trace aortic insufficiency, trace tricuspid insufficiency, right ventricular systolic pressure was 54 mmHg. Last ischemic evaluation via Lexiscan nuclear stress test 09/22/18. Per report , positive [id number] anterior ischemia of EF 66% at rest, 76% with stress. PAST MEDICAL HISTORY: 1. Hypertension. 2. Type 2 diabetes. 3. Morbid obesity. 4. Known sleep apnea, compliant with CPAP therapy. PAST SURGICAL HISTORY: Right wrist surgery. HOME MEDICATIONS: Per admission med rec. ALLERGIES: Include intolerance to MUCINEX DM, MOTRIN, and ORANGE OIL. FAMILY HISTORY: Significant in that his mother had bowel problem and heart failure. He denies history of heart disease in family. Family history is positive for diabetes. No history of sudden . 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 Denies alcohol or drug use. Denies tobacco use. REVIEW OF SYSTEMS: All systems have been reviewed and otherwise is negative except as above mentioned in the HPI. PHYSICAL EXAM: The patient was lying in bed upon entering room, does not appear to be in any apparent distress. is at bedside with his brother. He is cooperative with examination. HEENT: Head is atraumatic, normocephalic. Oral mucosa is moist. Tongue is midline. Neck: Supple. Trachea midline. No JVD. No carotid bruits. Cardiac: Normal S1, S2. Regular rate and rhythm. No murmur, rub, or gallop noted. Lungs: Auscultated posteriorly. No evidence of adventitious breath sounds. /GI: Abdomen is obese, nontender, normoactive bowel sounds. Unable to palpate for hepatomegaly. Extremities: Positive varicose veins and venous insufficiency. The patient has 1+ pretibial edema noted bilaterally and symmetrically. Peripheral Vascular: 2+ brachial and dorsalis pedis pulse palpated bilaterally and symmetrically. Skin: Intact. No evidence of ecchymosis, rash, or bleeding noted. Vital Signs: 10/25/18, pulse 82, oxygenation 97% on room air, blood pressure 113/56. DIAGNOSTIC STUDIES/LAB DATA: ECG obtained 10/24/18 sinus rhythm, rate 90, with known T-wave abnormalities in V1 through V3, no acute changes appreciated. Prior CTA 09/20/18 was negative for PE, but did show dilated pulmonary artery. ASSESSMENT AND PLAN: 1. Atypical greater than typical complaints of chest pain, risk factors include hypertension, type 2 diabetes. The patient has a known abnormal Lexiscan stress test from August 2018 that revealed [id number] anterior ischemia. He was arranged to have outpatient right and left heart catheterization with primary ticket dispatcher, Dr. Trevor Zepeda. Given new onset of syncope and known abnormal stress test, despite negative enzymes and more atypical symptomatology this admission, we will proceed with right and left heart catheterization. Procedure was reviewed with the patient including risk and benefits, not limited to bleeding, infection, vessel damage, risk of contrast used, nephropathy or possibly heart attack, stroke or , requirement of dual antiplatelet therapy, referral to outlying facility for bypass. He is agreeable to proceeding, consent to be obtained by solutions architect consultant, Dr. Sundar Rodriguez. 2. Pulmonary hypertension. Right ventricular systolic pressure on 09/20/18 echocardiogram was 54; follows Dr. Trevor Zepeda, will follow after right heart cath. 3. History of hypertension, on Norvasc therapy, blood pressure is currently normotensive. 4. DVT prophylaxis, on heparin therapy. 5. Disposition, pending course. The patient full code. Case was reviewed with Dr. Becki Finch, who agrees with the above assessment and plan, who personally saw and examined the patient. Thank you for this kind consultation. We will follow the patient closely and make further recommendations post procedure. THALIA REY NP [id number]/[facility] #: [id number] TAVO
[2018-10-26] MEDS ORDERED: SILDENAFIL 20 MG PO SCH (12:00)
[2018-10-26] MEDS: Mometasone/Formoter 200/5 MDI INH SCH ×2 (12:42→19:23)
[2018-10-26] MEDS: Nystatin TOP POWDER* 15 GM BTL TOPICAL SCH ×3 (12:46→22:05)
--- NOTE | 2018-10-26 16:24 | TRS ---
TRANSFER SUMMARY: cc: Dr. Davis DATE OF ADMISSION: 10/25/18 DATE OF TRANSFER: 10/26/18 ACCEPTING PHYSICIAN: Dr. Chandler Lopez at [facility]. HOSPITAL DESTINATION: [facility] in [place]. PRIMARY DIAGNOSIS: Severe pulmonary hypertension. SECONDARY DIAGNOSES: 1. Super morbid obesity. 2. Type 2 diabetes. 3. Gout. 4. Depression. 5. Anxiety. 6. Recent syncope. 7. Obstructive sleep apnea, on CPAP. MEDICATIONS AT THE TIME OF TRANSFER: 1. Acetaminophen 650 mg p.o. q.6 hours p.r.n. mild pain. 2. Albuterol MDI 2 puffs q.4 hours p.r.n. wheezing. 3. Allopurinol 200 mg p.o. b.i.d. 4. Amlodipine 2.5 mg p.o. q.a.m. 5. Abilify 5 mg p.o. q.h.s. 6. Aspirin 81 mg p.o. q. day. 7. Atorvastatin 40 mg p.o. q.p.m. 8. Wellbutrin XL 150 mg p.o. q.a.m. 9. Enoxaparin 40 mg subcutaneous q.24 hours. 10. Dextrose, D50 25 mL IV push for fingersticks less than 60. 11. Insulin Lantus 30 units subcutaneous q.a.m. and 35 units subcutaneous q.p.m. 12. Humalog insulin sliding scale. 13. Mirtazapine 15 mg p.o. q.h.s. 14. Dulera 200/5 two inhalations b.i.d. 15. Nystatin powder topical b.i.d. The patient's metformin is on hold due to recent cardiac cath. HOSPITAL COURSE: A 43-year-old man with known history of obesity hypoventilation syndrome, NILES, was admitted with chest pain radiating from the right side to the left side. Please see the admission history and physical for full details of the presenting illness. The patient did have a stress test on 09/22/18, which showed small amount of reversible ischemia in the anterior wall , possibly artifact due to his size. Echocardiogram at that time showed EF 65% to 70%. The patient described an unexplained syncope episode 1 or 2 weeks prior to admission when he was standing in line at food pantry. The patient also had dizziness on admission, which was nonspecific. The patient was admitted to the telemetry unit. Initial CBC was normal. Coagulation studies were essentially normal. Venous blood gas; pH 7.39, pCO2 of 42, pO2 less than 38. Sodium was 132, blood sugar was 436 on presentation. BNP was 83. Hemoglobin A1c was 11.2, demonstrating poor diabetic control. Troponins repeated on 4 occasions were 0.01 all 4 times. Chest x-ray on admission showed no evidence for acute cardiopulmonary disease. Initial electrocardiogram showed normal sinus rhythm, rate of 90, biphasic and inverted T-waves V1 through V5, leftward axis, around [address] depression in lead II and lead III, and a nonspecific intraventricular conduction delay. Subsequent EKG on the day of discharge was essentially unchanged. The patient had initial consultation with Dr. Finch of Cardiology on 10/25/18 in the evening. This followed a cardiac catheterization completed by Dr. Rodriguez. On the cardiac catheterization , the left angiography showed a 15% ostial narrowing on the left main. The LAD , circ and right were essentially normal. See Dr. Rodriguez's dictation for full details. Left ventriculography showed ejection fraction of 60% with a moderate area of hypokinesis in the mid inferior wall. Right heart catheterization showed right ventricular pressures of 124, PA pressure was 120/43 with a mean pressure of 74. Wedge showed A waves of 23, V waves of 22 and a mean of 19. Oxygen saturations on the right heart cath; arterial was 89%, right atrial of 62 %, right ventricle of 54%, pulmonary artery was 56%, SVC was 50%. Dr. Finch and Dr. Rodriguez discussed the case and Dr. Finch's consult reflected concern of severe pulmonary hypertension that did not appear to be due to left-sided heart failure or pulmonary emboli. She advised admission to the ICU and a trial of sildenafil for pulmonary hypertension. She advised avoiding diuresis to give the patient plenty of preload. She discussed the case with Dr. Zepeda , the patient's primary network intern and he recommended consultation with Dr. Chandler Lopez at [facility] for pulmonary hypertension. On Dr. Finch's advice, we stopped his Coreg and converted him to Norvasc. Dr. Finch was concerned that his syncope was due to a ventricular arrhythmia or hypoxia. The patient did not have any significant ventricular arrhythmias while he was here in the hospital. On the day of discharge, the patient was seen again by the cardiology team including Dr. Hdz, Dr. Rodriguez, and Cely Benito NP. The patient had no complications from the right and left heart cath. Dr. Rodriguez discussed the case with Dr. Lopez in [place] and transport was arranged. The patient will be transferred to [facility] by ALS ambulance. Dr. Chandler Lopez is accepting physician. CONDITION: Guarded. DIET: Should be low-salt. ACTIVITY: Bedrest until evaluated in [place]. STATUS: Inpatient here at this hospital. TIME SPENT: I spent more than 1 hour on the day of discharge coordinating care with multiple specialists in the [facility] and talking to the patient and examining him. [id number]/[facility] #: [id number] TAVO
[2018-10-26] MEDS: Insulin GLARGINE(*) 1 UNITS UNIT SUBCUT SCH (17:51)
--- NOTE | 2018-10-26 17:55 | CONS ---
PULMONARY CONSULTATION REPORT: DATE OF CONSULT: 10/26/18 CONSULTATION REQUESTED BY: Cely Benito NP REASON FOR CONSULT: Evaluation of pulmonary hypertension. HISTORY OF PRESENT ILLNESS: The patient is a 43-year-old morbidly obese male with history of obstructive sleep apnea/obesity hypoventilation, on CPAP; asthma ; insulin-dependent diabetes; gout; depression; anxiety. The patient was in the hospital in August of 2018 for evaluation of chest pain. He was also being treated for cellulitis at that time. 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 Zepeda. He presented with chest pain that was dull achy on the right side radiating to the left side associated with dizziness with no nausea, vomiting, diaphoresis, palpitations, or shortness of breath. The patient was found to have normal ejection fraction on echocardiogram with elevated right ventricular systolic pressure and right-sided hypokinesis. He was discharged with low-dose beta-madalyn and aspirin and ALEXA inhibitor was discontinued and he followed up. He also had syncopal episode 2 weeks ago. The patient had cardiac catheterization during this hospitalization which revealed significantly elevated pulmonary pressures with mean pressure of 74 and wedge between 17 to 19. The patient without significant hypoxemia at this time with O2 saturation around 90% at rest. His VBG showed pCO2 of 42, pH of 7.35 with a bicarb of 24. The patient reports compliance with BiPAP usage. His asthma has been in stable control. He is a nonsmoker and reports secondhand smoking exposure. The patient had CT of the chest done recently which did not reveal any pulmonary embolism. This was done during recent hospitalization. There was evidence of pulmonary hypertension with dilated main pulmonary artery. PAST MEDICAL HISTORY: 1. Obesity. 2. NILES/OHS, on CPAP. 3. Asthma. 4. Insulin-dependent diabetes. 5. Gout. 6. Depression. 7. Anxiety. 8. Recent chest pain. 9. Possible coronary artery disease versus right-sided heart failure. PAST SURGICAL HISTORY: Right wrist surgery. MEDICATIONS ON ADMISSION: 1. Furosemide 40 mg daily. 2. Trulicity. 3. Glimepiride. 4. Loratadine. 5. Nystatin. 6. Albuterol. 7. Allopurinol. 8. Aspirin. 9. Bupropion. 10. Carvedilol. 11. Fluticasone/salmeterol. 12. Insulin. 13. Metformin. 14. Mirtazapine. ALLERGIES: MUCINEX, IBUPROFEN, ORANGE OIL. FAMILY HISTORY: Positive for heart failure in mother. Father is healthy. SOCIAL HISTORY: The patient lives with mother and in [place]. He is a nonsmoker. No alcohol or drug abuse. REVIEW OF SYSTEMS: The patient is a poor historian, unable to provide much information on the review of systems. PHYSICAL EXAM: A morbidly obese male, in bed, in no apparent distress. Vital Signs: Temperature 98, pulse 95 beats per minute, respiratory rate 20 per minute, O2 sat 91% on room air, blood pressure 140/84. HEENT: Pupils equal, reactive to light. Mucous membranes moist. Lungs: Diminished air entry at bases. No wheezes. Cardiovascular: S1, S2 present, regular. Abdomen: Morbidly obese. Bowel sounds present. Extremities: Normal range of motion. Neuro: Alert, awake, oriented x3. No focal deficits. DIAGNOSTIC STUDIES/LAB DATA: WBC count 8.6, hemoglobin 14.3, hematocrit 43, platelet count 164. Sodium 133, potassium 4.2, chloride 104, BUN 10, creatinine 0.73, calcium 8.7. CT as described above in HPI. Chest x-ray was personally reviewed. No evidence of prominence of interstitium. IMPRESSION AND RECOMMENDATIONS: 43-year-old super morbidly obese male with evidence of severe pulmonary hypertension. The patient with history of obstructive sleep apnea and body habitus concerning for obesity hypoventilation and pickwickian syndrome with no documented evidence of hypoxemia at rest. The patient, however, with a possibility of chronic hypoxemia resulting in pulmonary hypertension. Given significant elevation of pulmonary pressures, recent syncopal episode, chest pain and chronic shortness of breath, concern for symptomatic pulmonary hypertension. The patient has been treating his sleep apnea with BiPAP. He has, however, not followed up with sleep physician for many years. He is being transferred to higher facility for management of pulmonary hypertension. He also is in need of transesophageal echocardiogram for optimal evaluation of his cardiac status. He might have diastolic dysfunction given his super morbid obesity, however, with no evidence of significant valvular abnormalities. Further management as per [facility] in [place]. [id number]/[facility] #: [id number] [facility]
[2018-10-26] MEDS: Atorvastatin* 40 MG TAB PO SCH (20:52)
[2018-10-26] MEDS: ARIPiprazole TAB* 5 MG PO SCH (20:52)
[2018-10-26] MEDS: Mirtazapine TAB* 15 MG PO SCH (20:53)
[2018-10-26 22:59] VITALS: BP 145/98
== END 2018-10-26 22:15 | disposition short-term general hospital (02) | DRG 287 ==
LOC: ED 20:35 → MEDTELE 10-25 01:31 → ICU 10-25 16:58 → OBSVTOIN 10-25 17:35
PROVIDERS: ADMIT Internal Medicine; ATTEND Internal Medicine
PROC: B2151ZZ Fluoroscopy of Left Heart using Low Osmolar Contrast (ICD-10-PCS; 2018-10-25)
PROC: 4A023N8 Measurement of Cardiac Sampling and Pressure, Bilateral, Percutaneous Approach (ICD-10-PCS; 2018-10-25)
PROC: B2111ZZ Fluoroscopy of Multiple Coronary Arteries using Low Osmolar Contrast (ICD-10-PCS; principal; 2018-10-25 14:00)
DX: I27.20 Pulmonary hypertension, unspecified (principal); Z68.44 Body mass index [BMI] 60.0-69.9, adult; M10.9 Gout, unspecified; J45.909 Unspecified asthma, uncomplicated; E11.65 Type 2 diabetes mellitus with hyperglycemia; E66.2 Morbid (severe) obesity with alveolar hypoventilation; F32.9 Major depressive disorder, single episode, unspecified; I10 Essential (primary) hypertension; F41.9 Anxiety disorder, unspecified; R55 Syncope and collapse; Z79.82 Long term (current) use of aspirin; Z79.4 Long term (current) use of insulin; Z79.01 Long term (current) use of anticoagulants; Z88.6 Allergy status to analgesic agent; Z88.8 Allergy status to other drugs, medicaments and biological substances; Z82.49 Family history of ischemic heart disease and other diseases of the circulatory system; Z91.5 Personal history of self-harm; Z83.3 Family history of diabetes mellitus; Z80.9 Family history of malignant neoplasm, unspecified
CPT/HCPCS: 36415; 71045; 76937; 80048; 80053; 80061; 82803; 82947; 83036; 83735; 83880; 84484; 85025; 85610; 85730; 93005; 93460; 94640; 99284; A9270-GY; C1769; C1887; G0378; J1644; J1650; J2250; J3010

== ENCOUNTER 2018-11-19 19:51 | Emergency (ER) | payer MEDICARE ==
--- OUTSIDE RECORDS SUMMARY | 2018-11-19 20:11 | XMS REPORT | Summary of Care ---
:1975 Author Organization [facility] Address [address] [facility] [place] [address] Care Team Providers Name Role Phone Lise Davis MD Primary Care Provider Reason for Visit Reason Comments Diabetes Mellitus pt reports checking blood sugar TID. Follow Up Encounter Details Date Type Department Care Team Description 11/09/2018 Office Visit [facility] [place], Uncontrolled type 2 [address] [facility] [place] [address] [place] [address] complication, without [phone] [place] [id number] long-term current use [phone] of insulin ([facility]) (Primary Dx) Allergies Active Allergy Reactions Severity Noted Date Comments Bee Sting Respiratory Reaction 09/19/2013 SOB, throat tightness Glipizide Other 09/20/2007 Burning pain in chest Aspartame-Ibuprofen Other 10/02/2011 Mucinex Hives 03/02/2018 Peñuelas Other 10/02/2011 documented as of this encounter (statuses as of 11/09/2018) Medications Medication Sig Dispensed Refills Start Date End Date Status HYDROXYPROPYL Place 2 Drops to 1 Bottle 0 02/14/2014 Active METHYLCELLULOSE (GENTEAL the external eye MILD TO MODERATE) 0.3 % DAILY NEEDED Ophthalmic Solution (2 drops in both eyes ever 3 hours as needed). loratadine take 1 tablet by 30 Tab 5 11/05/2014 Active (CLARITIN,ALAVERT) 10 MG mouth once daily Oral Tab buPROPion (WELLBUTRIN take 1 tablet by 30 Tab 5 10/25/2016 Active XL) 300 MG Oral TABLET mouth once daily SR 24 HR Additional information Patient taking differently: 450 mg PO QD, Reported on 07/27/2017 2:01 PM Nystatin 613256 UNIT/GM 1 g by Apply externally 1 Bottle 2 04/26/2017 Active Apply externally Powder route TWICE DAILY. mirtazapine (REMERON) 15 MG Take 15 mg by mouth EVERY 0 Active Oral Tab BEDTIME. aripiprazole (ABILIFY) 5 MG Take 5 mg by mouth EVERY 0 Active Oral Tab BEDTIME. GLARGINE insulin, Inject 35-40 Units beneath 6 Each 07/27/2017 Active LONG-Acting, (LANTUS) 100 the skin TWICE DAILY. 40 U UNIT/ML Subcutaneous in AM and 35 U PM - E11.9 Solution Additional information Patient taking differently: 35-40 Units Subcutaneous BID, 50 U in AM and 40 U PM - E11.9, Reported on 01/02/2018 1:51 PM Insulin Pen Needle (BD Inject 1 Each 100 Each 3 07/27/2017 Active ULTRA-FINE PEN NEEDLES) beneath the skin 29G X 12.7MM Does not TWICE DAILY. apply Misc EPINEPHrine (EPIPEN 1 Device by 2 Each 0 08/24/2017 Active 2-STU) 0.3 MG/0.3ML Injection route Injection Solution DIRECTED. As Auto-injector directed for bee sting Blood Glucose Monitor 1 Device by Does 1 Device 0 08/25/2017 Active Software Does not apply not apply route Device DIRECTED. Insurance preferred. E11.9 Lancets Does not apply TWICE DAILY. E11.9 100 Each 08/25/2017 Active Misc Glucose Blood In Vitro 1 Strip by In 100 Strip 08/25/2017 Active Strip Vitro route TWICE DAILY. Insurance preferred - E11.9 albuterol HFA Take 2 Puffs by 1 Inhaler 0 06/09/2018 Active (VENTOLIN) 108 (90 inhalation EVERY Base) MCG/ACT FOUR HOURS Inhalation Aero Soln NEEDED (1-2 puffs every four hours as needed). allopurinol (ZYLOPRIM) TAKE TWO TABLETS 120 Tab 0 08/05/2018 Active 100 MG Oral Tab BY MOUTH TWICE A DAY Aspirin 81 MG Oral Tab Take 81 mg by 0 Active mouth DAILY. carvedilol (COREG) Take 1 Tab by 180 Tab 3 10/24/2018 Active 3.125 MG Oral Tab mouth TWICE DAILY. BUPROPION HCL ER, SR, Take 150 mg by 0 Active PO mouth. rivaroxaban (XARELTO) Take by mouth. 0 Active 20 MG Oral Tab Spironolactone 50 MG Take by mouth. 0 Active Oral Tab Tadalafil 20 MG Oral Take by mouth. 0 Active Tab torsemide (DEMADEX) 10 Take 10 mg by 0 Active MG Oral Tab mouth DAILY. budesonide-formoterol Take 2 INHL by 0 Active fumarate (SYMBICORT) inhalation TWICE 160-4.5 MCG/ACT DAILY. Inhalation Aerosol Insulin Lispro (HUMALOG Inject 5 Units 5 Device 5 11/09/2018 Active KWIKPEN) 100 UNIT/ML beneath the skin Subcutaneous Solution THREE TIMES DAILY. Pen-injector Plus sliding scale Dulaglutide (TRULICITY) Inject 1.5 mg 2.24 mL 6 07/27/2017 11/10/19 Discontinued 1.5 MG/0.5ML beneath the skin 19 Subcutaneous Solution EVERY 7 DAYS. Pen-injector glimepiride (AMARYL) 4 Take 1 Tab by 60 Tab 0 06/09/2018 11/10/19 Discontinued MG Oral Tab mouth TWICE DAILY. 19 metFORMIN HCL 1000 MG TAKE ONE TABLET BY 60 Tab 1 10/02/2018 11/10/19 Discontinued Oral Tab MOUTH TWICE A DAY 19 documented as of this encounter (statuses as of 11/09/2018) Active Problems Problem Noted Date Depression 03/10/2012 BMI 70 and over, adult 08/28/2010 Gout 12/04/2007 Morbid obesity 04/28/2007 Type 2 diabetes mellitus with complication 04/28/2007 Hypertension 04/28/2007 Asthma 04/28/2007 Allergic Rhinitis 04/28/2007 Sleep apnea Overview: bipap documented as of this encounter (statuses as of 11/09/2018) Resolved Problems Problem Noted Date Resolved Date Wrist fracture 10/02/2011 Overview: R, open reduction and fixation documented as of this encounter (statuses as of 11/09/2018) Immunizations Name Administration Dates Next Due Influenza [...] Sign Reading Time Taken Comments Blood Pressure 120/70 11/09/2018 9:56 AM EDT Pulse 88 11/09/2018 9:56 AM EDT Temperature - - Respiratory Rate - - Oxygen Saturation - - Inhaled Oxygen Concentration - - Weight 178.4 kg (393 lb 6.4 oz) 11/09/2018 9:56 AM EDT Height 172.7 cm (5' 8") 11/09/2018 9:56 AM EDT Body Mass Index 59.82 11/09/2018 9:56 AM EDT documented in this encounter Progress Notes Ynes Belle FNP - 11/09/2018 9:40 AM EDT NAME: Trae Urbina : 1975 DATE: 11/09/2018 SUBJECTIVE: Trae Urbina is a 43-y.o. male is here for a follow-up for his Diabetes Mellitus type 2 for 10 years. Post hospitalization for pulmonary hypertension. A1C 10.9. Blood sugars and food diary since discharge reviewed. Denies any episode of hypoglycemia requiring assistance. Is current on opthalmologic exam. Denies retinopathy. Has distal neuropathy. No chest pain. Stable exertional dyspnea due to size. Current medications, allergies, and all history have been reviewed. Current Outpatient Medications Medication Sig albuterol HFA [...] not apply route DIRECTED. Insurance preferred. E11.9 budesonide-formoterol fumarate (SYMBICORT) 160-4.5 MCG/ACT Inhalation Aerosol Take 2 INHL by inhalation TWICE DAILY. buPROPion (WELLBUTRIN XL) 300 MG Oral TABLET SR 24 HR take 1 tablet by mouth once daily (Patient taking differently: 450 mg PO QD) BUPROPION HCL ER, SR, PO Take 150 mg by mouth. carvedilol (COREG) 3.125 MG Oral Tab Take 1 Tab by mouth TWICE DAILY. EPINEPHrine (EPIPEN 2-SUT) 0.3 MG/0.3ML Injection Solution Auto-injector 1 Device by Injection route DIRECTED. As directed for bee sting GLARGINE insulin, LONG-Acting, (LANTUS) 100 UNIT/ML Subcutaneous Solution Inject 35-40 Units beneath the skin TWICE DAILY. 40 U in AM and 35 U PM - E11.9 (Patient taking differently: Inject 35-40 Units beneath the skin TWICE DAILY. 50 U in AM and 40 U PM - E11.9) Glucose Blood In Vitro Strip 1 Strip [...] take 1 tablet by mouth once daily mirtazapine (REMERON) 15 MG Oral Tab Take 15 mg by mouth EVERY BEDTIME. Nystatin 907930 UNIT/GM Apply externally Powder 1 g by Apply externally route TWICE DAILY. rivaroxaban (XARELTO) 20 MG Oral Tab Take by mouth. Spironolactone 50 MG Oral Tab Take by mouth. Tadalafil 20 MG Oral Tab Take by mouth. torsemide (DEMADEX) 10 MG Oral Tab Take 10 mg by mouth DAILY. No current facility-administered medications for this visit. Allergies Allergen Reactions Bee Sting Respiratory Reaction SOB, throat tightness Glipizide Other Burning pain in chest Ibuprofen [Aspartame-Ibuprofen] Other Mucinex Hives Peñuelas Other Past Medical History: Diagnosis Date Allergic Rhinitis 04/28/2007 Asthma 04/28/[address] Donato Diabetes 04/28/2007 eye -04/2014, feet 03/13 Gout Hypertension 04/28/2007 Morbid obesity (HCC) 04/28/2007 Sleep apnea bipap 14/12 Wrist fracture R, open reduction and fixation Social History Socioeconomic History Marital status: Single [...] file Gets together: Not on file Attends voodoo service: Not on file Active member of [...] file Social History Narrative Not on file OBJECTIVE: Blood pressure 120/70, pulse 88, height 5' 8" (1.727 m), weight 393 lb 6.4 oz (178.4 kg). General: no distress. Eyes: conjunctiva pink Neck: no thyroid enlargement or nodules. Heart: regular rate and rhythm, no murmur. Lungs: Clear to auscultation. Abdomen: obese. Bowel sounds present Diabetic foot exam Left Normal visual Filament test present No pulse palpable Right Normal visual Filament test present No pulse palpable Neuro: normal DTR Extremities: No edema. Psych: Alert and oriented. Lab Results Component Value Date GLYCO 10.9 (H) 10/12/2018 GLYCO 10.9 (H) 07/13/2018 GLYCO 9.4 (H) 04/10/2018 ASSESSMENT and PLAN: 1. Diabetes mellitus type 2 uncontrolled with neuropathy and morbid obesity Continue basal insulin Add meal correction insulin Labs reviewed 2. Morbid Obesity Diet and exercise encouraged Has seen dietitian 3. Hypertension Adequate control 4. Neuropathy stable. [facility] Section of Endocrinology 11/09/2018 10:10 documented in this encounter Plan of Treatment Date Type Specialty Care Team Description 11/27/2018 Office Visit Cardiology Jhoan Zepeda MD [address] [place] [address] 01/04/2019 Office Visit Family Practice Chong Oliveros MD [address] [place] [address] 02/08/2019 Office Visit Endocrinology Ynes Belle FNP [address] [facility] [place] [address] Health Maintenance Due Date Last Done Comments [...] Problems Progress Blood Pressure Blood Pressure Hypertension 120/70 No Susan, < 140/90 (11/09/2018 Lise, 9:56 AM EDT) Note: Hypertension Care Plan Based on [...] Educational Resources. record my blood pressure results. [employer] is safe and secure way for you [...] Educational Resources: National Heart, Lung, & Blood [place] http://nhlbi.nih.gov/hbp/index.html The DASH Diet Eating Plan http://www.nhlbi.nih.gov/health/health-topics/ topics/dash/ Academy of Nutrition & DIetetics http://eatright.org National Smoking Cessation Site http://smokefree.gov Blood Pressure < Blood Pressure 120/70 (11/09/2018 No Lise Davis, 140/90 9:56 AM EDT) Note: This is an individualized treatment (blood pressure) goal for Trae Chidi Urbina: Displayed above (on the left) is [...] my blood sugar results (including dextrose sticks). [employer] is safe and secure way for you [...] my blood sugar results (including dextrose sticks). [employer] is safe and secure way for you [...] A1c < 7.0 Diabetes 10.9 (10/12/2018 3:02 No Lise Davis, PM EDT) Note: This is an individualized treatment (diabetes control, HgbA1C) goal for Trae Urbina: Displayed above is your progress towards your HgbA1C goal. Your goal is shown above (on the left); your most recent HgbA1C is shown on the right. Note that lower numbers are better. Weight loss vs. 18 mo Lifestyle 32.6 (11/09/2018 9:56 AM No Lise Davis MD max (lbs) >= 10 EDT) Note: This is an individualized lifestyle goal for Trae Urbina: Your body mass index (BMI) is more than 30. You should lose weight. A reasonable starting goal is to lose 10 pounds. Displayed above is how many pounds you have lost thus far towards your 10 pound weight loss goal. Keep a regular sleep schedule Lifestyle No Lise Davis MD Note: This is an individualized lifestyle goal for Trae B Carlitos: Please maintain a regular sleep schedule. This [...] filedocumented in this encounter Visit Diagnoses Diagnosis Uncontrolled type 2 diabetes mellitus with complication, without long-term current use of insulin (HCC) - Primary documented in this encounter Guarantor Name Account Type Relation to Date of Phone Billing Patient Address Trae Urbina Personal/Family 1975 [address] (Home) [place], [place] [phone] [id number] (Work) documented as of this encounter
--- OUTSIDE RECORDS SUMMARY | 2018-11-19 20:11 | XMS REPORT | Summary of Care ---
:1975 Author Organization [facility] Address [address] [facility] [place] [address] Care Team Providers Name Role Phone Lise Davis MD Primary Care Provider Reason for Visit Reason Comments Transitional Care Management here for follow up from hospital admission ( [facility] in [place]) admitted 10/28-11/02 dx pulonary HTN; contiunes to have periods of dizziness. Encounter Details Date Type Department Care Team Description 11/08/2018 Office Visit [facility] Juan A Hernandez DO Pulmonary hypertension (HCC) (Primary Dx); Practice [address] [facility] Uncontrolled type 2 diabetes mellitus with hyperglycemia (HCC); [address] [place] [address] Pulmonary artery hypertension (HCC); [place] [address] History of blood clots [phone] Allergies Active Allergy Reactions Severity Noted Date Comments Bee Sting Respiratory Reaction 09/19/2013 SOB, throat tightness Glipizide Other 09/20/2007 Burning pain in chest Aspartame-Ibuprofen Other 10/02/2011 Mucinex Hives 03/02/2018 [place] Other 10/02/2011 documented as of this encounter (statuses as of 11/08/2018) Medications Medication Sig Dispensed Refills Start Date [...] QD, Reported on 07/27/2017 2:01 PM Nystatin 159012 UNIT/GM 1 g by Apply externally 1 [...] not apply TWICE DAILY. E11.9 100 Each 5 08/25/2017 Active Misc Glucose Blood In Vitro 1 Strip by In 100 Strip 08/25/2017 Active Strip Vitro route TWICE DAILY. Insurance preferred - E11.9 albuterol HFA Take 2 Puffs by 1 Inhaler 0 06/09/2018 Active (VENTOLIN) 108 (90 inhalation EVERY Base) MCG/ACT FOUR HOURS Inhalation Aero Soln NEEDED (1-2 puffs every four hours as needed). glimepiride (AMARYL) 4 Take 1 Tab by 60 Tab 0 06/09/2018 Active MG Oral Tab mouth TWICE DAILY. allopurinol (ZYLOPRIM) TAKE TWO TABLETS 120 Tab 0 08/05/2018 Active 100 MG Oral Tab BY MOUTH TWICE A DAY metFORMIN HCL 1000 MG TAKE ONE TABLET BY 60 Tab 1 10/02/2018 Active Oral Tab MOUTH TWICE A DAY Aspirin 81 MG [...] inhalation TWICE 160-4.5 MCG/ACT DAILY. Inhalation Aerosol furosemide (LASIX) 40 Take 1 Tab by 30 Tab 3 11/11/2015 11/09/19 Discontinued MG Oral TabIndications: mouth DAILY 19 Ankle edema NEEDED (swelling). fluticasone-salmeterol Take 1 INHL by 1 Inhaler 0 06/09/2018 11/09/19 Discontinued diskus (ADVAIR DISKUS) inhalation TWICE 19 500-50 MCG/DOSE DAILY. Inhalation AEROSOL POWDER, BREATH ACTIVATED documented as of this encounter (statuses as of 11/08/2018) Active Problems Problem Noted Date Depression 03/10/2012 BMI 70 and over, adult 08/28/2010 Gout 12/04/2007 Morbid obesity 04/28/2007 Type 2 diabetes mellitus with complication 04/28/2007 Hypertension 04/28/2007 Asthma 04/28/2007 Allergic Rhinitis 04/28/2007 Sleep apnea Overview: bipap documented as of this encounter (statuses as of 11/08/2018) Resolved Problems Problem Noted Date Resolved Date Wrist fracture 10/02/2011 Overview: R, open reduction and fixation documented as of this encounter (statuses as of 11/08/2018) Immunizations Name Administration Dates Next Due Influenza [...] Sign Reading Time Taken Comments Blood Pressure 124/76 11/08/2018 10:49 AM EDT Pulse 71 11/08/2018 10:49 AM EDT Temperature - - Respiratory Rate - - Oxygen Saturation 95% 11/08/2018 10:49 AM EDT Inhaled Oxygen Concentration - - Weight 178.2 kg (392 lb 12.8 oz) 11/08/2018 10:49 AM EDT Height 172.7 cm (5' 8") 11/08/2018 10:49 AM EDT Body Mass Index 59.73 11/08/2018 10:49 AM EDT documented in this encounter Progress Notes Juan A Hernandez, DO - 11/08/2018 10:40 AM EDT PATIENT: Trae Urbina : 1975 DATE OF SERVICE: 11/08/2018 CHIEF COMPLAINT: Chief Complaint Patient presents with Transitional Care Management here for follow up from hospital admission ([facility] in [place]) admitted 10/28-11/02 dx pulonary HTN; contiunes to have periods of dizziness. Subjective HISTORY OF PRESENT ILLNESS: Trae Urbina is a 43-y.o. male. HPI Post hospital Changing PCP but aware I am leaving so will establish with Dr Oliveros in few weeks Had dyspnea on exertion Admitted to [facility] Severe pulmonary hypertension diagnosis via right heart cath and also clot in artery seen Started on aldactone, torsemide and no issues. Doing bmp and nt Pro bnp today Glipizide, trulicity and metformin stopped at hospital Sees shagufta sanchez. FS and prior to dinner readings in 200's and 300's respectively On lantus 40 and 60 units for am and pm DEJESUS resolved and back to baseline with diuresis 9 lbs less than last visit last month in this clinic cialias and letairis are in mail and should be coming in few days Pulmonary appt to be set up by today or tomorrow Going up and down give transient dizziness. Otherwise doing much better Using bipap every night Hospitalization Summary CONCISE NARRATIVE: Trae Urbina is a 43 yo male with PMH DM2, HTN, NILES on BiPAP, asthma and depression who was recently found to have severe PAH after having breathless 2 months ago that progressed to syncope. He was admitted for further work-up and management of PAH. Underwent right heart catheterization/ pulmonary angiography on 11/01/18 which showed grade 1 pulmonary hypertension with acute clotthat would explain his decompensation. He was started on diuresis and vasodilator therapy as well asanticoagulation. He should have BNP and NT-pro BNP next week with Primary Care and Pulm follow-ups. Declined home care. CARDIAC TESTIN11/01/18 Right heart catheterization: Elevated right and borderline mildly elevated left heart filling pressures. - Severe pulmonary hypertension. - Moderately depressed cardiac index. - Pulmonary angiography of somewhat limited quality due to body habitus. Normal left pulmonary artery anatomy. No evidence of central or primary branch pulmonary embolus of the right lung, with possible distal subbranch disease. Imp: Group 1 PAH with acute clot likely explaining his decompensation. Treatment with letairis + adcirca appro. ULTRASOUND RESULTS: 10/27/18 US BLE: No DVT in the visualized deep veins of the bilateral lower extremities. OTHER IMAGING RESULTS: 10/27/18 NM V/Q Scan: Possible sequela of prior pulmonary emboli in all segments of the right upper lobe and superior segment of the right lower lobe, recommend further evaluation with CTA chest. Low probability of acute pulmonary embolism. SIGNIFICANT MED CHANGES: Yes Started adcirca 40mg, spironolactone 50mg, torsemide 10mg and xarelto 20mg. Hold metformin and glipizide at discharge, restart at PCP discretion Past Medical History: Diagnosis Date Allergic Rhinitis 04/28/2007 Asthma 04/28/[address] Donato Diabetes 04/28/2007 eye -04/2014, feet 03/13 Gout Hypertension 04/28/2007 Morbid obesity (HCC) 04/28/2007 Sleep apnea bipap 14/12 Wrist fracture R, open reduction and fixation Family History Problem Relation Age of Onset Heart Mother HCM and Afib Current Outpatient Medications Medication Sig albuterol HFA [...] Take 1 Tab by mouth TWICE DAILY. Dulaglutide (TRULICITY) 1.5 [...] 15 mg by mouth EVERY BEDTIME. Nystatin 144597 UNIT/GM Apply externally Powder 1 g by [...] in chest Ibuprofen [Aspartame-Ibuprofen] Other Mucinex Hives [place] Other Social History Socioeconomic History Marital status: Single [...] file Gets together: Not on file Attends catholic service: Not on file Active member of [...] file Social History Narrative Not on file REVIEW OF SYSTEMS: Review of Systems Constitutional: Negative for fever. Cardiovascular: Negative for chest pain. Gastrointestinal: Negative for abdominal pain. Neurological: Negative for headaches. Objective PHYSICAL EXAM: VITALS: BP 124/76 (BP Location: Left arm, Patient Position: Sitting) | Pulse 71 | Ht 5' 8" (1.727m) | Wt 392 lb 12.8 oz (178.2 kg) | SpO2 95% | BMI 59.73 kg/m Body mass index is 59.73 kg/m. Physical Exam Constitutional: He appears well-developed and well-nourished. No distress. HENT: Head: Normocephalic and atraumatic. Mouth/Throat: Oropharynx is clear and moist. No oropharyngeal exudate. Eyes: Conjunctivae are normal. Right eye exhibits no discharge. Left eye exhibits no discharge. No scleral icterus. Cardiovascular: Normal rate and regular rhythm. Pulmonary/Chest: Effort normal and breath sounds normal. Skin: He is not diaphoretic. ASSESSMENT / IMPRESSION: ICD-9-CM ICD-10-CM 1. Pulmonary hypertension (HCC) 416.8 I27.20 NT PROBNP BASIC METABOLIC PANEL BASIC METABOLIC PANEL NT PROBNP 2. Uncontrolled type 2 diabetes mellitus with hyperglycemia (HCC) 250.02 E11.65 NT PROBNP BASIC METABOLIC PANEL BASIC METABOLIC PANEL NT PROBNP 3. Pulmonary artery hypertension (HCC) 416.8 I27.21 NT PROBNP BASIC METABOLIC PANEL BASIC METABOLIC PANEL NT PROBNP Plan Told him to increase lantus by 2 units for morning and evening. Endo can see bmp result and then seeif glipizide, trulicity and metformin need to be started. Honestly in his case he should just do insulin to minimize # of medications. Told him to discuss this with endo DEJESUS: resolved. PUL HTN is the cause. He will call to get appt with Dr Lopez. Results of bmp and nt pro BNP will go to Dr Lopez pulmonary Has appt with new pcp and cardio too at end of this month Continue diuretic medications Author: Juan A Hernandez DO 11/08/2018 13:20 documented in this encounter Plan of Treatment Date Type Specialty Care Team Description 11/09/2018 Office Visit [facility]in[facility] [address] [facility] [address] 11/27/2018 Office Visit Cardiology Jhoan Zepeda MD [address] [place] [address] [phone] 01/04/2019 Office Visit Family Practice Chong Oliveros MD [address] [place] [address] [phone] Name Type Priority Associated Diagnoses Date/Time NT PROBNP Lab Routine Pulmonary hypertension 11/08/2018 11:45 AM (HCC) EDT Uncontrolled type 2 diabetes mellitus with hyperglycemia (HCC) Pulmonary artery hypertension (HCC) BASIC METABOLIC PANEL Lab Routine Pulmonary hypertension 11/08/2018 11:45 AM (HCC) EDT Uncontrolled type 2 diabetes mellitus with hyperglycemia (HCC) Pulmonary artery hypertension (HCC) Name Type Priority Associated Diagnoses Order Schedule NT PROBNP Lab Routine Pulmonary hypertension Expected: 11/08/2018 (HCC) (Approximate), Uncontrolled type 2 Expires: 11/09/2019 diabetes mellitus with hyperglycemia (HCC) Pulmonary artery hypertension (HCC) BASIC METABOLIC PANEL Lab Routine Pulmonary hypertension Expected: 2018 (HCC) (Approximate), Uncontrolled type 2 Expires: 11/09/2019 diabetes mellitus with hyperglycemia (HCC) Pulmonary artery hypertension (HCC) Health Maintenance Due Date Last Done Comments [...] Problems Progress Blood Pressure Blood Pressure Hypertension 124/76 No Susan, < 140/90 (11/08/2018 Lise, 10:49 AM EDT) Note: Hypertension Care Plan Based [...] Educational Resources: National Heart, Lung, & Blood [place] http://nhlbi.nih.gov/hbp/index.html The DASH Diet Eating Plan http://www.nhlbi.nih.gov/health/health-topics/ topics/dash/ Academy of Nutrition & DIetetics http://eatright.org National Smoking Cessation Site http://smokefree.gov Blood Pressure < Blood Pressure 124/76 (11/08/2018 No Lise Davis, 140/90 10:49 AM EDT) Note: This is an individualized treatment (blood pressure) goal for Trae Chidi Carlitos: Displayed above (on the left) is your [...] an individualized treatment (depression) goal for Trae Chidi Urbina: Displayed above is your goal for [...] my blood sugar results (including dextrose sticks). [employer] is safe and secure way for you [...] my blood sugar results (including dextrose sticks). [employer] is safe and secure way for [...] better. Weight loss vs. 18 mo Lifestyle 33.2 (11/08/2018 10:49 AM No Lise Davis MD max (lbs) [...] filedocumented in this encounter Visit Diagnoses Diagnosis Pulmonary hypertension (HCC) - Primary Other chronic pulmonary heart diseases Uncontrolled type 2 diabetes mellitus with hyperglycemia (HCC) Pulmonary artery hypertension (HCC) Other chronic pulmonary heart diseases History of blood clots Personal history of venous thrombosis and embolism documented in this encounter Guarantor Name Account Type Relation to Date of Phone Billing Patient Address Trae Urbina Personal/Family 1975 [address] (Home) [place], [place] [phone] [id number] (Work) documented as of this encounter
[2018-11-19] MEDS ORDERED: NS 0.9% 1000 ML** 1,000 ML IV ONE (23:12)
--- NOTE | 2018-11-19 23:12 | ED ---
Dizziness - HPI Summary HPI Summary: The patient is a 43 y/o M presenting to [facility] accompanied by family with a chief complaint of chest pain onset at 1400 lasting for a few hours with dizziness onset after that is still present. When the chest pain began, he was at rest, but the pain extended from the right anterior into the left side and into the back in intermittent episodes. The dizziness is described as someone holding him down where he cant move, whole room is spinning, and if he tries to move, the dizziness worsens and feels like the bed is tipping. He has hx of vertigo, but he states that this is worse. He additionally c/o chills and nausea. He denies any abd pain. Recently dx with blood clot in lungs a few weeks ago, per Dr. Lopez, which he was placed on a blood thinner and diuretics. He had been in the hospital prior to that for chest pain and dizziness, and then his symptoms worsened after discharge, although symptoms werent severe then as they are now. Currently, his symptoms are rated 10/10 in severity. PMHx : DM, HTN, asthma, gout, anxiety, depression. Nonsmoker, occasional EtOH, no substance use. Medications reviewed. Allergies noted. - History Of Current Complaint Chief Complaint: EDChestPainROMI Stated Complaint: CHEST PAIN PER Time Seen by Provider: 11/19/18 23:03 Hx Obtained From: Patient Onset/Duration: Still Present - dizziness, Resolved - CP Timing: Hours Severity Initially: Moderate Severity Currently: Severe Character: Room Spinning, Dizzy Aggravating Factor(s): Change In Head Position Alleviating Factor(s): Rest, Lying Down Associated Signs And Symptoms: Positive: Nausea, Chest Pain - right to left and into back (resolved), Chills, Other: - Negative: abd pain - Allergies/Home Medications Allergies/Adverse Reactions: Allergies Allergy/AdvReac Type Severity Reaction Status Date / Time dextromethorphan Allergy Nausea Verified 11/19/18 20:02 [From Mucinex DM] guaifenesin [From Mucinex DM] Allergy Nausea Verified 11/19/18 20:02 ibuprofen [From Motrin] Allergy rash/kidneys Verified 11/19/18 20:02 shut down orange oil Allergy hives Uncoded 11/19/18 20:02 diff breathing Home Medications: Home Medications Ambrisentan 5 mg PO DAILY 11/19/18 [History Confirmed 11/19/18] BuPROPion XL* [Bupropion XL*] 300 mg PO DAILY 11/19/18 [History Confirmed ] Budesonide/Formote 160/4.5(NF) [Symbicort 160/4.5 (NF)] 2 puff INH BID 11/19/18 [History Confirmed 11/19/18] Carvedilol 3.125 mg PO BID 11/19/18 [History Confirmed 11/19/18] EPINEPHrine [Epipen 2-Wicho] 0.3 mg IM ONCE PRN 11/19/18 [History Confirmed ] Insulin GLARGINE(*) [Lantus(*)] 60 units SUBCUT BID 11/19/18 [History Confirmed 11/20/18] Rivaroxaban TAB(*) [Xarelto 20 mg] 20 mg PO DAILY 11/19/18 [History Confirmed ] Spironolactone 50 mg PO DAILY 11/19/18 [History Confirmed 11/19/18] Tadalafil 20 mg PO BID 11/19/18 [History Confirmed 11/19/18] PMH/Surg Hx/FS Hx/Imm Hx Endocrine/Hematology History: Reports: Hx Diabetes Denies: Hx Thyroid Disease, Hx Anemia, Hx Unexplained Bleeding Cardiovascular History: Reports: Hx Hypertension Denies: Hx Aneurysm, Hx Angina, Hx Auto Implanted Cardiovert Defib, Hx Cardiac Arrest, Hx Congenital Heart Disease, Hx Congestive Heart Failure, Hx Coronary Artery Disease, Hx Deep Vein Thrombosis, Hx Embolism, Hx Hypercholesterolemia, Hx Hypotension, Hx Myocardial Infarction, Hx Pacemaker/ICD , Hx Peripheral Vascular Disease, Hx Rheumatic Fever, Hx Syncope, Hx Valvular Heart Disease, Other Cardiovascular Problems/Disorders Respiratory History: Reports: Hx Asthma, Hx Sleep Apnea - uses cpap Denies: Hx Chronic Obstructive Pulmonary Disease (COPD), Hx Cystic Fibrosis, Hx Lung Cancer, Hx Pleural Effusion, Hx Pneumonia, Hx Pulmonary Edema, Hx Pulmonary Embolism, Hx Seasonal Allergies GI History: Denies: Hx Cirrhosis, Hx Crohn's Disease, Hx Diverticulosis, Hx Gall Bladder Disease, Hx Gastroesophageal Reflux Disease, Hx Gastrointestinal Bleed, Hx Hiatal Hernia, Hx Irritable Bowel, Hx Jaundice, Hx Obstructive Bowel, Hx Ileostomy, Hx Pyloric Stenosis, Hx Ulcer, Other GI Disorders History: Reports: Other Problems/Disorders - kidney "issues" when he takes ibuprofen Denies: Hx Acute Renal Failure, Hx Benign Prostatic Hyperplasia, Hx Chronic Renal Failure, Hx Dialysis, Hx Kidney Infection, Hx Kidney Stones, Hx Renal Disease Musculoskeletal History: Reports: Hx Gout Denies: Hx Arthritis, Hx Back Problems, Hx Bursitis, Hx Congenital Bone Abnormalities, Hx Fibromyalgia, Hx Osteoporosis, Hx Scoliosis, Hx Tendonitis, Other Musculoskeletal History Sensory History: Reports: Hx Contacts or Glasses - glasses Denies: Hx Cataracts, Hx Eye Injury, Hx Eye Prosthesis, Hx Glaucoma, Hx Legally Blind, Hx Macular Degeneration, Hx Vision Problem, Hx Deafness, Hx Hearing Aid, Hx Hearing Problem, Other Sensory Impairments Opthamlomology History: Reports: Hx Contacts or Glasses - glasses Denies: Hx Cataracts, Hx Eye Injury, Hx Eye Prosthesis, Hx Glaucoma, Hx Legally Blind, Hx Macular Degeneration, Hx Vision Problem, Other Sensory Impairments Neurological History: Denies: Hx Dementia, Hx Developmental Delay, Hx Headaches, Hx Migraine, Hx Nerve Disease, Hx Seizures, Hx Spinal Cord Injury, Hx Transient Ischemic Attacks (TIA) Psychiatric History: Reports: Hx Anxiety, Hx Depression, Hx Community Mental Health Tx, Hx Suicide Attempt Denies: Hx Attention Deficit Hyperactivity Disorder, Hx Autism, Hx Eating Disorder, Hx Panic Disorder, Hx Post Traumatic Stress Disorder, Hx Inpatient Treatment, Hx Schizophrenia, Hx Bipolar Disorder, Hx of Violent Episodes Against Others - Cancer History Cancer Type, Location and Year: none - Surgical History Surgical History: Yes Surgery Procedure, Year, and Place: RIGHT WRIST FRACTURE, SCREWS PLACED. Hx Anesthesia Reactions: No - Immunization History Date of Tetanus Vaccine: UNKNOWN Infectious Disease History: No Infectious Disease History: Denies: Hx Clostridium Difficile, Hx Hepatitis, Hx Human Immunodeficiency Virus (HIV), Hx of Known/Suspected MRSA, Hx Shingles, Hx Tuberculosis, History Other Infectious Disease, Traveled Outside the [place] in Last 30 Days - Family History Known Family History: Positive: Hypertension, Diabetes, Other - cancer Negative: Cardiac Disease - Social History Alcohol Use: Occasionally Hx Substance Use: No Substance Use Type: Reports: None Hx Tobacco Use: No Smoking Status (MU): Never Smoked Tobacco Have You Smoked in the Last Year: No Review of Systems Positive: Chills Positive: Chest Pain - right radiating to left and into back (resolved) Positive: Nausea. Negative: Abdominal Pain Neurological: Other - dizziness All Other Systems Reviewed And Are Negative: Yes Physical Exam - Summary Physical Exam Summary: Appearance: Well-appearing, Morbidly obese, Lying very still in the stretcher, No acute distress Skin: Warm, dry, no obvious rash Eyes: sclera anicteric, no conjunctival pallor ENT: mucous membranes moist, pharynx appears normal Neck: Supple, nontender Respiratory: Clear to auscultation, no signs of respiratory distress Cardiovascular: Normal S1, S2. No murmurs. Normal distal pulses in tibial and radial bilaterally. Abdomen: Soft, nontender, normal active bowel sounds present Musculoskeletal: Normal, Strength/ROM Intact Neurological: A&Ox3, awake and alert, mentation is normal, speech is fluent and appropriate, Extraocular movements intact, No nystagmus, No disconjugate gaze, GCS: 15 Psychiatric: affect is normal, does not appear anxious or depressed Triage Information Reviewed: Yes Vital Signs On Initial Exam: Initial Vitals Temp Pulse Resp BP Pulse Ox 98.8 F 84 16 115/78 95 11/19/18 20:01 11/19/18 20:01 11/19/18 20:01 11/19/18 20:01 11/19/18 20:01 Vital Signs Reviewed: Yes - Corbin Coma Scale Best Eye Response: 4 - Spontaneous Best Motor Response: 6 - Obeys Commands Best Verbal Response: 5 - Oriented Coma Scale Total: 15 Diagnostics - Vital Signs Vital Signs Temp Pulse Resp BP Pulse Ox 11/19/18 22:42 99 F 82 20 115/72 94 11/19/18 20:01 98.8 F 84 16 115/78 95 - Laboratory Result Diagrams: 11/20/18 00:46 11/20/18 00:46 Lab Statement: Any lab studies that have been ordered have been reviewed, and results considered in the medical decision making process. - Radiology CXR Radiology Interpretation Completed By: ED Physician Summary of Radiographic Findings: No acute process. ED physician has interpreted this report. Pending official report. - CT Brain CT CT Interpretation Completed By: Radiologist Summary of CT Findings: Impression: No acute intracranial abnormality. ED physician has reviewed this imaging report. - EKG 1956 Cardiac Rate: NL - 85 bpm EKG Rhythm: Sinus Rhythm Summary of EKG Findings: NSR at 85 BPM, P waves, QRS complex, and T waves are within normal limits, T waves and intervals are normal, no ischemic changes. This is a normal EKG. ED physician has reviewed and interpreted this EKG. Re-Evaluation - Re-Evaluation First Eval Re-Evaluation Time: 03:00 Change: Improved Comment: We discussed results and discharge home. Dizzy Course/Dx - Course Course Of Treatment: Pt is a 43 y/o M with cc of resolved chest pain radiating from the right anterior into the left anterior and back beginning at 1600 with onset of dizziness that is currently still present and severe, accompanied by chills and nausea. Recent dx of PE. Upon physical exam, this is a morbidly obese man laying very still in the stretcher in no acute distress with extraocular movements intact without nystagmus or disconjugate gaze. Blood work reveals Hgb of 13.2, Hct of 39, RDW of 16, plt count of 141, sodium of 133, glucose of 216, calcium of 8.5, AST of 11, and total protein of 5.9. UA obtained and reveals 2+ protein but is otherwise negative. In the ED course, the pt was administered fluids and Benadryl. EKG at 1956 reveals NSR at 85 BPM without any ischemic changes. Chest x-ray, per my interpretation, is negative. Brain CT was checked due to vertigo associated with anticoagulant use, fortunately is negative for acute intracranial abnormality such as bleeding. Pt is able to ambulate in the ED. We discussed all results and plan for discharge home with rx of Meclizine. He understands and agrees with this plan. Dx of benign paroxysmal vertigo. - Diagnoses Provider Diagnoses: Benign paroxysmal vertigo Discharge ED - Sign-Out/Discharge Documenting (check all that apply): Patient Departure - Patient will be discharged home. Patient Received Moderate/Deep Sedation with Procedure: No - Discharge Plan Condition: Good Disposition: HOME Patient Education Materials: Vertigo (ED) Referrals: [facility] [Outside] - 3 Days (if not better) Additional Instructions: If you don't have a local doctor of your own, [facility] can help you bridge until you do. The tests we did tonight did not show any sign of a complication of your recent illness, or an acute heart problem. The CT scan did not show any evidence of bleeding in the brain as a cause of your dizziness, which can be a worry in people who have to take anticoagulants. I think the dizziness is due to peripheral vertigo, a benign irritation in the inner ear. It usually subsides over a few days, though it can be quite disconcerting in the meantime. The medicine prescribed can help with the symptoms. - Billing Disposition and Condition Condition: GOOD Disposition: Home - Attestation Statements Document Initiated by Rhoda: Yes Documenting Scribe: Pamela Basurto Provider For Whom Rhoda is Documenting (Include Credential): Dr. Gurpreet Ramirez MD Scribe Attestation: I, solange Nicholsonibed for Dr. Gurpreet Ramirez MD on 11/20/18 at 1834. Scribe Documentation Reviewed: Yes Provider Attestation: The documentation as recorded by the Pamela colon accurately reflects the service I personally performed and the decisions made by me, Dr. Gurpreet Ramirez MD Status of Rhoda Document: Viewed
[2018-11-19] MEDS ORDERED: diPHENhydraMINE IV* 50 MG/ML 1 ml VIAL (BENADRYL) IV ONE (23:13)
[2018-11-20 01:00] LABS: ABS Basophils 0.1 10^3/ul (0-0.2); ABS Eosinophils 0.2 10^3/ul (0-0.6); ABS Lymphocytes 0.9 10^3/ul (1.0-4.8); ABS Monocytes 0.5 10^3/ul (0-0.8); ABS Neutrophils 7.6 10^3/ul (1.5-7.7); Eosinophil % 2.5 %; Hematocrit 39 % (42-52); Hemoglobin 13.2 g/dL (14.0-18.0); Mean Corpuscular HGB Conc 34 g/dL (31-36); Mean Corpuscular Hemoglobin 29 pg (27-31); Mean Corpuscular Volume 85 fL (80-94); Mean Platelet Volume 7.9 fL (7.4-10.4); Platelet Count 141 10^3/uL (150-450); Red Blood Count 4.59 10^6 /uL (4.18-5.48); Red Cell Distribution Width 16 % (10-15); White Blood Count 9.3 10^3/uL (3.5-10.8)
[2018-11-20 01:17] LABS: Albumin 3.8 g/dL (3.2-5.2); Albumin/Globulin Ratio 1.8 (1-3); BUN/Creatinine Ratio 18.3 (8-20); Calcium 8.5 mg/dL (8.6-10.3); EGFR African American 108.3 (>60); EGFR Non-African American 89.5 (>60); Globulin 2.1 g/dL (2-4); Potassium 3.8 mmol/L (3.5-5.0); Total Bilirubin 0.6 mg/dL (0.2-1.0); Total Protein 5.9 g/dL (6.4-8.9)
[2018-11-20 01:19] LABS: Troponin I 0.01 ng/mL (<0.04)
[2018-11-20 02:06] LABS: TSH (Thyroid Stimulating Horm) 2.12 mcIU/mL (0.34-5.60)
[2018-11-20 03:09] LABS: Urine Appearance Clear; Urine Bacteria Absent (Absent); Urine Bilirubin Negative (Negative); Urine Blood Negative (Negative); Urine Color Yellow; Urine Glucose Negative (Negative); Urine Ketones Negative (Negative); Urine Nitrite Negative (Negative); Urine Protein 2+(100 mg/dL) (Negative); Urine Red Blood Cell Absent (Absent); Urine Specific Gravity 1.017 (1.010-1.030); Urine Urobilinogen Negative (Negative); Urine White Blood Cell Trace(0-5/hpf) (Absent)
[2018-11-20 03:22] VITALS: BP 127/71
== END 2018-11-20 03:42 | disposition home or self-care (01) ==
LOC: ED 19:51
DX: H81.10 Benign paroxysmal vertigo, unspecified ear (principal); R07.9 Chest pain, unspecified; R11.0 Nausea; E11.9 Type 2 diabetes mellitus without complications; I10 Essential (primary) hypertension; J45.909 Unspecified asthma, uncomplicated; F41.9 Anxiety disorder, unspecified; M10.9 Gout, unspecified; F32.9 Major depressive disorder, single episode, unspecified; Z79.899 Other long term (current) drug therapy
CPT/HCPCS: 36415; 70450; 71046; 80053; 81003; 81015; 84443; 84484; 85025; 87086; 93005; 96361; 96374; 99284; J1200

== ENCOUNTER 2018-11-20 11:16 | Inpatient (IN) | payer MEDICARE ==
[2018-11-20] MEDS ORDERED: Meclizine TAB* 12.5 MG PO ONE (11:20)
[2018-11-20] MEDS ORDERED: LORazepam TAB(*) 1 MG PO ONE (12:40)
[2018-11-20] MEDS ORDERED: NS 0.9% 1000 ML** 1,000 ML IV ONE (13:38)
[2018-11-20 13:57] LABS: ABS Eosinophils 0.2 10^3/ul (0-0.6); ABS Monocytes 0.4 10^3/ul (0-0.8); Hematocrit 38 % (42-52); Hemoglobin 12.9 g/dL (14.0-18.0); Lymphocyte % 12.8 %; Mean Corpuscular HGB Conc 34 g/dL (31-36); Mean Corpuscular Hemoglobin 29 pg (27-31); Mean Corpuscular Volume 84 fL (80-94); Mean Platelet Volume 7.8 fL (7.4-10.4); Platelet Count 136 10^3/uL (150-450); Red Blood Count 4.45 10^6 /uL (4.18-5.48); Red Cell Distribution Width 16 % (10-15); White Blood Count 7.6 10^3/uL (3.5-10.8)
[2018-11-20 14:05] LABS: INR 1.43 (0.82-1.09)
[2018-11-20 14:16] LABS: Albumin 3.7 g/dL (3.2-5.2); Albumin/Globulin Ratio 1.8 (1-3); BUN/Creatinine Ratio 17.3 (8-20); C Reactive Protein 29.74 mg/L (<8.01); Calcium 8.8 mg/dL (8.6-10.3); EGFR African American 138.9 (>60); EGFR Non-African American 114.8 (>60); Globulin 2.1 g/dL (2-4); Magnesium 1.9 mg/dL (1.9-2.7); Potassium 3.9 mmol/L (3.5-5.0); Total Bilirubin 0.6 mg/dL (0.2-1.0); Total Protein 5.8 g/dL (6.4-8.9)
[2018-11-20 14:17] LABS: Troponin I 0.02 ng/mL (<0.04)
[2018-11-20 15:11] LABS: TSH (Thyroid Stimulating Horm) 2.08 mcIU/mL (0.34-5.60)
--- NOTE | 2018-11-20 15:17 | ED ---
Dizziness - HPI Summary HPI Summary: This patient is a 43-year-old morbidly obese male with a complicated past medical history presenting to the ED with dizziness 2 days. He was seen in the ED last evening for chest pressure and dizziness. Cardiac workup was obtained including a CT brain, all of which was normal. He was diagnosed with chest pressure and dizziness and discharged home last night. He was given Benadryl which improved his symptoms from 10/10 to a 9/10 just prior to discharge. He returns today without chest pain or shortness of breath, however is continuing to endorse dizziness. He describes this dizziness as the room spinning and he is off balance. He has had this in the past, and has been diagnosed with vertigo, however he states the symptoms are different and worse. He is currently endorsing a 10/10 dizziness and is unable to ambulate. His recent history includes an admission to [facility] 7 weeks ago for CP and dizziness. He was found to have severe HTN, sent to [facility] to see Chandler Lopez MD and started on Tadanafil. While is cardiac workup here at [facility] including catheterization, STAN and CTA was all benign, he was found to have a PE after his cardiac catheterization when he was at [facility]. He was placed on Xarelto. EF = 70% Nuclear stress test = inconclusive CTA = no filling defects Catheterization = mid inferior wall hypokinesis PMHx = Type II diabetes, obstructive hypoventilation, NILES, HTN, severe, pulmonary HTN, PE, morbid obesity, depression - History Of Current Complaint Chief Complaint: EDDizziness Stated Complaint: DIZZY PER FAMILY Time Seen by Provider: 11/20/18 11:20 Hx Obtained From: Patient, Family/Video Journalist Timing: Constant Severity Initially: Severe Severity Currently: Severe Character: Room Spinning Aggravating Factor(s): Nothing, Position Change Alleviating Factor(s): Lying Down, Closing Eyes Associated Signs And Symptoms: Positive: Nausea, Unsteady Gait, Inability to Walk. Negative: Vomiting, Diarrhea, Diaphoresis, Tinnitus, Visual Changes - Risk Factors Cardiac Risk Factors: Hypertension, Diabetes CVA Risk Factor: Hypertension - Allergies/Home Medications Allergies/Adverse Reactions: Allergies Allergy/AdvReac Type Severity Reaction Status Date / Time dextromethorphan Allergy Nausea Verified 11/19/18 20:02 [From Mucinex DM] guaifenesin [From Mucinex DM] Allergy Nausea Verified 11/19/18 20:02 ibuprofen [From Motrin] Allergy rash/kidneys Verified 11/19/18 20:02 shut down orange oil Allergy hives Uncoded 11/19/18 20:02 diff breathing Home Medications: Home Medications Bupropion XL* [Wellbutrin XL *] 150 mg PO DAILY 11/20/18 [History Confirmed ] Tetrahydrozoline HCl [Eye Drops] 1 drop BOTH EYES DAILY PRN 11/20/18 [History Confirmed 11/20/18] Torsemide TAB* [Demadex*] 10 mg PO DAILY 11/20/18 [History Confirmed 11/20/18] PMH/Surg Hx/FS Hx/Imm Hx Previously Healthy: No - complicated PMHx Endocrine/Hematology History: Reports: Hx Diabetes Denies: Hx Thyroid Disease, Hx Anemia, Hx Unexplained Bleeding Cardiovascular History: Reports: Hx Hypertension Denies: Hx Aneurysm, Hx Angina, Hx Auto Implanted Cardiovert Defib, Hx Cardiac Arrest, Hx Congenital Heart Disease, Hx Congestive Heart Failure, Hx Coronary Artery Disease, Hx Deep Vein Thrombosis, Hx Embolism, Hx Hypercholesterolemia, Hx Hypotension, Hx Myocardial Infarction, Hx Pacemaker/ICD , Hx Peripheral Vascular Disease, Hx Rheumatic Fever, Hx Syncope, Hx Valvular Heart Disease, Other Cardiovascular Problems/Disorders Respiratory History: Reports: Hx Asthma, Hx Sleep Apnea - uses cpap Denies: Hx Chronic Obstructive Pulmonary Disease (COPD), Hx Cystic Fibrosis, Hx Lung Cancer, Hx Pleural Effusion, Hx Pneumonia, Hx Pulmonary Edema, Hx Pulmonary Embolism, Hx Seasonal Allergies GI History: Denies: Hx Cirrhosis, Hx Crohn's Disease, Hx Diverticulosis, Hx Gall Bladder Disease, Hx Gastroesophageal Reflux Disease, Hx Gastrointestinal Bleed, Hx Hiatal Hernia, Hx Irritable Bowel, Hx Jaundice, Hx Obstructive Bowel, Hx Ileostomy, Hx Pyloric Stenosis, Hx Ulcer, Other GI Disorders History: Reports: Other Problems/Disorders - kidney "issues" when he takes ibuprofen Denies: Hx Acute Renal Failure, Hx Benign Prostatic Hyperplasia, Hx Chronic Renal Failure, Hx Dialysis, Hx Kidney Infection, Hx Kidney Stones, Hx Renal Disease Musculoskeletal History: Reports: Hx Gout Denies: Hx Arthritis, Hx Back Problems, Hx Bursitis, Hx Congenital Bone Abnormalities, Hx Fibromyalgia, Hx Osteoporosis, Hx Scoliosis, Hx Tendonitis, Other Musculoskeletal History Sensory History: Reports: Hx Contacts or Glasses - glasses Denies: Hx Cataracts, Hx Eye Injury, Hx Eye Prosthesis, Hx Glaucoma, Hx Legally Blind, Hx Macular Degeneration, Hx Vision Problem, Hx Deafness, Hx Hearing Aid, Hx Hearing Problem, Other Sensory Impairments Opthamlomology History: Reports: Hx Contacts or Glasses - glasses Denies: Hx Cataracts, Hx Eye Injury, Hx Eye Prosthesis, Hx Glaucoma, Hx Legally Blind, Hx Macular Degeneration, Hx Vision Problem, Other Sensory Impairments Neurological History: Denies: Hx Dementia, Hx Developmental Delay, Hx Headaches, Hx Migraine, Hx Nerve Disease, Hx Seizures, Hx Spinal Cord Injury, Hx Transient Ischemic Attacks (TIA) Psychiatric History: Reports: Hx Anxiety, Hx Depression, Hx Community Mental Health Tx, Hx Suicide Attempt Denies: Hx Attention Deficit Hyperactivity Disorder, Hx Autism, Hx Eating Disorder, Hx Panic Disorder, Hx Post Traumatic Stress Disorder, Hx Inpatient Treatment, Hx Schizophrenia, Hx Bipolar Disorder, Hx of Violent Episodes Against Others - Cancer History Cancer Type, Location and Year: none - Surgical History Surgery Procedure, Year, and Place: RIGHT WRIST FRACTURE, SCREWS PLACED. Hx Anesthesia Reactions: No - Immunization History Date of Tetanus Vaccine: UNKNOWN Hx Pertussis Vaccination: No Immunizations Up to Date: Yes Infectious Disease History: No Infectious Disease History: Denies: Hx Clostridium Difficile, Hx Hepatitis, Hx Human Immunodeficiency Virus (HIV), Hx of Known/Suspected MRSA, Hx Shingles, Hx Tuberculosis, History Other Infectious Disease, Traveled Outside the [place] in Last 30 Days - Family History Known Family History: Positive: Hypertension, Diabetes, Other - cancer Negative: Cardiac Disease - Social History Occupation: Unemployed Lives: With Family Alcohol Use: Occasionally Hx Substance Use: No Substance Use Type: Reports: None Hx Tobacco Use: No Smoking Status (MU): Never Smoked Tobacco Have You Smoked in the Last Year: No Review of Systems Positive: Fatigue - at baseline - no more than usual. Negative: Fever, Chills, Skin Diaphoresis Negative: Photophobia, Blurred Vision, Diplopia, Drainage Negative: Palpitations, Chest Pain - this subsided last evening after seen in ED Negative: Shortness Of Breath, Cough Negative: Abdominal Pain, Vomiting, Diarrhea, Nausea - none currently Genitourinary: Negative Positive: no symptoms reported, see HPI Negative: Arthralgia, Myalgia Negative: Rash, Bruising Negative: Headache, Weakness, Paresthesia, Numbness, Syncope, Slurred Speech Negative: Anxious, Depressed All Other Systems Reviewed And Are Negative: Yes Physical Exam Triage Information Reviewed: Yes Vital Signs On Initial Exam: Initial Vitals Resp BP 15 143/86 11/20/18 11:15 11/20/18 11:15 Vital Signs Reviewed: Yes Appearance: Positive: Obese Skin: Positive: Skin Color Reflects Adequate Perfusion, Other - bilateral lower extremity stasis Head/Face: Positive: Normal Head/Face Inspection Eyes: Positive: EOMI, ISMA, Conjunctiva Clear Neck: Positive: Supple, Nontender, No Lymphadenopathy Respiratory/Lung Sounds: Positive: Breath Sounds Present, Decreased Breath Sounds Cardiovascular: Positive: RRR, Pulses are Symmetrical in both Upper and Lower Extremities. Negative: Leg Edema Left, Leg Edema Right Abdomen Description: Positive: Nontender, No Organomegaly, Soft. Negative: CVA Tenderness (R), CVA Tenderness (L) Bowel Sounds: Positive: Present Musculoskeletal: Positive: Strength/ROM Intact Neurological: Positive: Sensory/Motor Intact, Unable to Assess Gait, Other. Negative: Normal Gait, Dysphagia, Rhomberg, Heel to Toe, Finger to Nose Psychiatric: Positive: Normal, Affect/Mood Appropriate AVPU Assessment: Alert Diagnostics - Vital Signs Vital Signs Temp Pulse Resp BP Pulse Ox 11/20/18 14:15 80 34 139/84 90 11/20/18 14:00 79 28 94 11/20/18 13:45 78 29 143/83 92 11/20/18 13:16 72 20 122/81 90 11/20/18 13:00 76 29 90 11/20/18 12:46 77 31 139/72 93 11/20/18 12:15 74 29 128/76 93 11/20/18 12:00 76 28 91 11/20/18 11:45 77 26 139/80 91 11/20/18 11:35 78 27 140/84 92 11/20/18 11:23 76 26 93 11/20/18 11:16 98.0 F 78 20 143/86 94 11/20/18 11:15 15 143/86 - Laboratory Lab Results: Lab Results 11/20/18 11/20/18 11/20/18 Range/Units 13:44 13:44 13:44 WBC 7.6 (3.5-10.8) 10^3/uL RBC 4.45 (4.18-5.48) 10^6 /uL Hgb 12.9 L (14.0-18.0) g/dL Hct 38 L (42-52) % MCV 84 (80-94) fL MCH 29 (27-31) pg MCHC 34 (31-36) g/dL RDW 16 H (10-15) % Plt Count 136 L (150-450) 10^3/uL MPV 7.8 (7.4-10.4) fL Neut % (Auto) 78.2 % Lymph % (Auto) 12.8 % [place] % (Auto) 5.5 % Eos % (Auto) 3.0 % Baso % (Auto) 0.5 % Absolute Neuts (auto) 6.0 (1.5-7.7) 10^3/ul Absolute Lymphs (auto) 1.0 (1.0-4.8) 10^3/ul Absolute Monos (auto) 0.4 (0-0.8) 10^3/ul Absolute Eos (auto) 0.2 (0-0.6) 10^3/ul Absolute Basos (auto) 0.0 (0-0.2) 10^3/ul Absolute Nucleated RBC 0.0 10^3/ul Nucleated RBC % 0.0 INR (Anticoag Therapy) 1.43 H (0.82-1.09) Sodium 133 L (135-145) mmol/L Potassium 3.9 (3.5-5.0) mmol/L Chloride 101 (101-111) mmol/L Carbon Dioxide 25 (22-32) mmol/L Anion Gap 7 (2-11) mmol/L BUN 13 (6-24) mg/dL Creatinine 0.75 (0.67-1.17) mg/dL Est GFR ( Amer) 138.9 (>60) Est GFR (Non-Af Amer) 114.8 (>60) BUN/Creatinine Ratio 17.3 (8-20) Glucose 176 H (70-100) mg/dL Lactic Acid (0.5-2.0) mmol/L Calcium 8.8 (8.6-10.3) mg/dL Magnesium 1.9 (1.9-2.7) mg/dL Total Bilirubin 0.60 (0.2-1.0) mg/dL AST 12 L (13-39) U/L ALT 12 (7-52) U/L Alkaline Phosphatase 43 (34-104) U/L Troponin I 0.02 (<0.04) ng/mL C-Reactive Protein 29.74 H (<8.01) mg/L B-Natriuretic Peptide (<=100) pg/mL Total Protein 5.8 L (6.4-8.9) g/dL Albumin 3.7 (3.2-5.2) g/dL Globulin 2.1 (2-4) g/dL Albumin/Globulin Ratio 1.8 (1-3) TSH Pending 11/20/18 11/20/18 Range/Units 13:44 13:44 WBC (3.5-10.8) 10^3/uL RBC (4.18-5.48) 10^6 /uL Hgb (14.0-18.0) g/dL Hct (42-52) % MCV (80-94) fL MCH (27-31) pg MCHC (31-36) g/dL RDW (10-15) % Plt Count (150-450) 10^3/uL MPV (7.4-10.4) fL Neut % (Auto) % Lymph % (Auto) % [place] % (Auto) % Eos % (Auto) % Baso % (Auto) % Absolute Neuts (auto) (1.5-7.7) 10^3/ul Absolute Lymphs (auto) (1.0-4.8) 10^3/ul Absolute Monos (auto) (0-0.8) 10^3/ul Absolute Eos (auto) (0-0.6) 10^3/ul Absolute Basos (auto) (0-0.2) 10^3/ul Absolute Nucleated RBC 10^3/ul Nucleated RBC % INR (Anticoag Therapy) (0.82-1.09) Sodium (135-145) mmol/L Potassium (3.5-5.0) mmol/L Chloride (101-111) mmol/L Carbon Dioxide (22-32) mmol/L Anion Gap (2-11) mmol/L BUN (6-24) mg/dL Creatinine (0.67-1.17) mg/dL Est GFR ( Amer) (>60) Est GFR (Non-Af Amer) (>60) BUN/Creatinine Ratio (8-20) Glucose (70-100) mg/dL Lactic Acid 0.7 (0.5-2.0) mmol/L Calcium (8.6-10.3) mg/dL Magnesium (1.9-2.7) mg/dL Total Bilirubin (0.2-1.0) mg/dL AST (13-39) U/L ALT (7-52) U/L Alkaline Phosphatase (34-104) U/L Troponin I (<0.04) ng/mL C-Reactive Protein (<8.01) mg/L B-Natriuretic Peptide 46 (<=100) pg/mL Total Protein (6.4-8.9) g/dL Albumin (3.2-5.2) g/dL Globulin (2-4) g/dL Albumin/Globulin Ratio (1-3) TSH Result Diagrams: 11/20/18 13:44 11/20/18 13:44 Lab Statement: Any lab studies that have been ordered have been reviewed, and results considered in the medical decision making process. Re-Evaluation - Re-Evaluation First Eval Change: Unchanged - continues to endorse 10/10 dizziness Second Eval Change: Worse - continues to endorse sxs and states worse after medication Third Eval Change: Unchanged - denies any change in symptoms Dizzy Course/Dx - Course Course Of Treatment: Physical exam: HINTS exam normal. Neuro exam limited d/t body habitus and pts inability to follow commands well. Unable to assess gait d /t instability. Unable to perform heel to yates test. No nystagmus noted. Riky hallpike negative. No limitations with visual fernandez. No bilateral upper or lower extremity motor drift. Limb ataxia noted with [id number]. No dysarthria. A and O x 3. No carotid bruits heart bilaterally. Decreased breath sounds throughout. RRR. No abd pain. Depressed affect. Appears ill, but non-toxic. VS stable. Pt is given meclizine and ativan without improvement of symptoms. Continues to endorse 10/10. Unable to ambulate pt d/ t sxs. At this time, labs were obtained and neurology was called. Dr. Villarreal to consult on this patient. This does not appear to be related to vertigo as this is not positional per Dr. Villarreal. As pt is continuing to be symptomatic, discussed case with Dr. Enriquez, hospitalist who will admit patient for further workup. EKG NSR. CXR shows no abnormalities. - Diagnoses Differential Diagnosis/HQI/PQRI: Benign Paroxysmal Positional Vertigo, CVA, Hyperventilation, Hypovolemia, Medication Reaction, Metabolic Abnormality, Transient Ischemic Attack Provider Diagnoses: Dizziness - Provider Notifications Discussed Care Of Patient With: Chandler Villarreal - and Dr. Enriquez Instructed by Provider To: Admit As Inpatient Discharge ED - Sign-Out/Discharge Documenting (check all that apply): Patient Departure Patient Received Moderate/Deep Sedation with Procedure: No - Discharge Plan Condition: Fair Disposition: ADMITTED TO [facility] Referrals: No Primary Care Phys,NOPCP [Primary Care Provider] - - Billing Disposition and Condition Condition: FAIR Disposition: Admitted to [facility]
[2018-11-20 17:22] LABS: Urine Appearance Clear; Urine Bacteria Absent (Absent); Urine Bilirubin Negative (Negative); Urine Blood Negative (Negative); Urine Color Yellow; Urine Glucose Negative (Negative); Urine Ketones Trace (Negative); Urine Nitrite Negative (Negative); Urine Protein 1+(30 mg/dL) (Negative); Urine Red Blood Cell Trace(0-2/hpf) (Absent); Urine Specific Gravity 1.013 (1.010-1.030); Urine Urobilinogen Negative (Negative); Urine White Blood Cell Trace(0-5/hpf) (Absent)
[2018-11-20] MEDS ORDERED: Meclizine TAB* 12.5 MG PO PRN (17:57)
[2018-11-20] MEDS ORDERED: Albuterol HFA INHALER* 8 gm MDI INH PRN (17:58)
[2018-11-20] MEDS ORDERED: Iodixanol* (CONTRAST) 320 MG/ML 100 ML SDV IV ONE (18:23)
--- NOTE | 2018-11-20 18:49 | CONS ---
NEUROLOGY CONSULTATION: DATE OF CONSULT: 11/20/18 LOCATION: He is in the emergency room to be admitted. REFERRING PROVIDER: PHYLLIS Anderson. CHIEF COMPLAINT: Dizziness. HISTORY OF PRESENT ILLNESS: Trae Urbina is a 43-year-old disabled man who is accompanied by his [id number] who is also his home health provider. He has a complicated medical history which will be reviewed. Last evening, he developed some chest pain and subsequently felt extremely weak. He started to feel dizzy. He presented to the emergency room yesterday and was evaluated last evening. The dizziness persisted and is worse if he moves, but it is still present when he is lying still. He has not experienced any headache with it, change in vision, or nausea. He had some routine labs which were unremarkable and a CT scan of the brain which was likewise unremarkable. He was given some meclizine. He said that the dizziness went from a 9/10 to an 8/10. He was discharged home. Today, when he was asked about his dizziness, he says it was a 9/10, and he was not able to ambulate because he felt so weak and "heavy." He was brought back to the emergency room. He was just hospitalized last month with dizziness, chest pain, and weakness. It again started with chest pain and then he felt very dizzy. He had an extensive evaluation including a cardiac catheterization and was found to have severe pulmonary hypertension. He had a negative CT angiogram of the chest and was transferred to [facility] for further evaluation. He had what sounds to be a catheter angiogram of his lungs and was found to have pulmonary emboli. He was put on rivaroxaban. He was discharged home and he continued to feel dizzy. His [id number] attempted to change his meds at different times of the day to see if it would help with the dizziness. Ultimately, it resolved and he was free of dizziness. After about a week being out of the hospital, he was able to resume driving and felt well until last night when again he had an attack of chest pain and dizziness. When asked if this dizziness is the same as the dizziness he experienced a month ago, he says yes. PAST MEDICAL HISTORY: Notable for morbid obesity, severe pulmonary hypertension apparently from pulmonary emboli, hypertension, insulin-dependent diabetes, gout, depression, anxiety, CPAP use, asthma. MEDICATIONS: At home consist of: 1. Metformin. 2. Mirtazapine. 3. Carvedilol. 4. Bupropion. 5. Albuterol. 6. Allopurinol. 7. Glimepiride. 8. Trulicity. 9. Rivaroxaban. 10. Abilify. 11. Tadalafil. ALLERGIES: He is listed as having allergies to IBUPROFEN, DEXTROMETHORPHAN, GUAIFENESIN. REVIEW OF SYSTEMS: Negative for recent falls. He feels generally weak. He has been more sleepy than usual. He has been more cognitively impaired than usual according to his [id number]. He has not noticed any change in hearing. He does not have any headache. He has not experienced any double vision. There has been no change in his speech. PHYSICAL EXAM: He is morbidly obese. Blood pressure 139/84, heart rate in the 70s, respiratory rate is 34, and oxygen saturation is 90% on supplemental oxygen. Heart tones are distant, but I do not hear any murmurs. Oral mucosa is moist. There was no oral trauma. I do not hear any carotid bruits, but I cannot feel his pulses either. Neurological Exam: Pupils are equal at 3 mm, reacting consensually to light to 2 mm. Eye movements are normal, specifically there is no nystagmus. Fundi revealed what appeared to be fairly sharp discs, although I do not get the best view. Facial musculature is symmetric. 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 Speech is simple but clear. Facial sensation to light touch and pin is symmetric. Motor exam reveals normal strength in the limbs proximally and distally. There is no drift of any limb. [id number]-[id number] maneuver is slow but accurate bilaterally. There is no rest tremor. There is no asterixis or myoclonus. Reflexes are trace diffusely, absent at the ankles, plantar responses are flexor bilaterally. I did not attempt to ambulate him. He has a fair memory and seems mentally slow. Language is simple but otherwise fluent. DIAGNOSTIC STUDIES/LAB DATA: Laboratory data this admission notable for CBC with a hemoglobin of 12.9, otherwise is unremarkable. His platelet count is a little bit low at 136,000. His INR is somewhat elevated at 1.43. His chemistry profile is notable for a sodium of 133 and is otherwise unremarkable. His glucose today is 176, his hemoglobin A1c last month was 11.2%. Electrolytes otherwise unremarkable. He had a borderline low vitamin B12 level on 09/20/18 at 187. TSH today is normal at 2.08. IMPRESSION: Impression is that of nonspecific dizziness in a patient with severe pulmonary hypertension and a recent diagnosis of pulmonary embolus. It apparently went away for a while after he had been home for over a week only to recur last night. It was proceeded by chest pain and generalized sense of weakness and he feels that this is the same subjective sense of dizziness he had when he was diagnosed a month ago with pulmonary emboli. I do not think he is having a primary vestibular disorder. I should note he had an MRI scan of the brain without contrast on 09/22/18 because of the dizziness, which was interpreted as normal. I reviewed the images and I agree. I think he needs to be reevaluated for his pulmonary hypertension as a potential cause of his dizziness. He may have increased intracranial pressure, but I cannot see any evidence of papilledema on his exam. I will discuss my impression with Jade Prado. If he is admitted, as I suspect, I would probably recommend getting an MR venogram of the brain to make sure he does not have a cerebral vein thrombosis. He does not have any headache though, so I think that is pretty unlikely, but given his pulmonary hypertension, I think it should be looked into. [id number]/[id number] #: [id number] MTDD
--- NOTE | 2018-11-20 19:54 | HP ---
CC: Dr. Oliveros * HISTORY AND PHYSICAL: DATE OF ADMISSION: 11/20/18 PROVIDER: Billie Alvarez NP PRIMARY CARE PROVIDER: Dr. Chong Oliveros. ATTENDING PHYSICIAN WHILE IN THE HOSPITAL: Dr. Asha Enriquez * (dictated by Billie Alvarez NP). CHIEF COMPLAINT: Dizziness. HISTORY OF PRESENT ILLNESS: Mr. Urbina is a 43-year-old male with a past medical history significant for pulmonary hypertension; gout; sleep apnea, wears CPAP at night; history of pulmonary embolism; diabetes; and panic attacks , who presented to the emergency room with complaints of dizziness. The patient was seen and evaluated in the emergency room yesterday for dizziness and chest pain and was discharged home. This morning, the patient did return due to continued complaints of dizziness. He does report that the dizziness started yesterday at approximately 6 p.m. He was not doing anything to exacerbate the dizziness. He reports his dizziness is worse with standing and moving his head [id number]. He reports that he feels like the room is spinning. He also reports heaviness in his arms and legs. He does report that he was able to sleep last evening intermittently, but consistently had dizziness. While in the emergency room, the patient had routine lab work. He had electrocardiogram, which showed sinus rhythm at a rate of 79. He had a CT of the brain on 11/19/18 at 2312, radiologist's impression: No acute intracranial abnormality. He had a chest x-ray, radiologist's impression: No active cardiopulmonary disease and that was from 11/20/18 at 1 o'clock. Due to the patient's continued dizziness, he represented to the emergency room for further evaluation. Dr. Villarreal from Neurology was consulted to see the patient in evaluation, who saw the patient in the emergency room and recommended a CTA of the head venogram , which is currently in the process of being completed. Due to his persistent dizziness, Hospital Medicine was asked to see and evaluate the patient for admission. PAST MEDICAL HISTORY: Significant for: 1. Pulmonary embolism, currently on anticoagulation with Xarelto. 2. Pulmonary hypertension found at cardiac catheterization at [facility] in October of 2018. 3. Gout. 4. Sleep apnea, wears CPAP at night. 5. Diabetes. 6. Panic attacks. PAST SURGICAL HISTORY: Right arm surgery and cardiac catheterization. HOME MEDICATIONS: Include: 1. Albuterol HFA inhaler 1 to 2 puffs every 6 hours. 2. Allopurinol 100 mg 2 pills 2 times a day. 3. Ambrisentan 5 mg 1 tablet p.o. daily. 4. Abilify 5 mg at bedtime. 5. Aspirin 81 mg at bedtime. 6. Symbicort 160/4.5 two puffs 2 times a day. 7. Bupropion 300 mg in the morning. 8. Bupropion 150 mg ER in the a.m. 9. Carvedilol 3.125 mg 2 times daily. 10. Epi 0.3 as needed. 11. Ophthalmic drops as needed. 12. Lantus 60 units b.i.d. 13. Claritin 10 mg p.o. daily. 14. Remeron 15 mg at bedtime. 15. Nystatin powder as needed. 16. Xarelto 20 mg at dinner. 17. Spironolactone 50 mg p.o. daily. 18. Tadalafil 20 mg 2 times a day. 19. Torsemide 10 mg once daily. ALLERGIES: 1. DEXTROMETHORPHAN. 2. GUAIFENESIN. 3. IBUPROFEN. 4. ORANGE OIL. 5. GLIPIZIDE. 6. NITRO. 7. BEES. FAMILY HISTORY: Mother with a history of congestive heart failure. Sister with a history of [place]. Grandfather with diabetes and mother with a history of skin cancer. SOCIAL HISTORY: Denies any tobacco, alcohol, or illicit drug use. He is self- employed. He is . Surrogate decision maker in the event he is unable to make his own decisions is his or mother. He is a full code. REVIEW OF SYSTEMS: He denies any fevers or unintended weight loss. He does report chills. Denies any chest pain or edema. Denies any cough, hemoptysis, or shortness of breath. Denies any nausea, vomiting, diarrhea, or abdominal pain. Denies any gross hematuria or dysuria. He does complain of generalized weakness more so in the legs. Denies any visual complaints. Denies any dysphagia, arthralgias, myalgias, rashes, lesions, open sores, psychosis, or anxiety. PHYSICAL EXAMINATION GENERAL: At this time, Mr. Urbina is a 43-year-old male, alert and oriented, resting on the stretcher in the emergency room. He is in no acute distress. VITAL SIGNS: Blood pressure 129/68, heart rate 82, respirations 18, O2 saturation 91%, temperature was 98.0. HEENT: Head is atraumatic, normocephalic. Eyes: EOMs are intact. Sclerae anicteric and not pale. Oral mucosa appeared to be moist. NECK: Supple. LUNGS: Diminished throughout bilaterally. ABDOMEN: Obese, soft, nontender. Bowel sounds are present x4. EXTREMITIES: Pedal pulses are +2 bilaterally. There is no clubbing or cyanosis. NEUROLOGIC: He is awake, alert, oriented x3. Speech is clear. Thought process is intact. There are no gross focal deficits. Hands are equal. There is no pronator drift. There is no leg drift. Push-pull is intact, but diminished bilaterally lower legs. [id number] is intact. There is no facial asymmetry. Tongue is midline. Smile is equal. [id number] is intact. SKIN: He does have an open area noted to plantar aspect of the left foot. There is no surrounding erythema. He does have abrasions noted to his bilateral lower legs. DIAGNOSTIC STUDIES/LAB DATA: WBCs are 7.6, RBCs 4.45, hemoglobin 12.9, hematocrit 38, platelet count 136. INR 1.43. ABG; pH was 7.47, pCO2 was 35, pO2 was 65, HCO3 was 26, ABG O2 saturation was 95.6%, base excess was 2.1. Sodium 133, potassium 3.9, chloride 101, carbon dioxide was 25, anion gap was 7 , BUN was 13, creatinine 0.75, glucose was 176, lactic acid was 0.7, calcium 8.8 , magnesium 1.9. Total bilirubin 0.60, ASTs were 12, ALTs were 12, alkaline phosphatase was 43. Troponin was 0.02. C-reactive protein was 29.74. BNP 46. TSH 2.08. Urine within normal limits with exception protein was +1, ketones were trace. He had an electrocardiogram, which showed sinus rhythm at a rate of 79. CTA of the chest and CTA of the head are currently pending. ASSESSMENT AND PLAN: Mr. Urbina is a 43-year-old male with a past medical history significant for pulmonary hypertension; recent diagnosis of pulmonary embolism, currently on Xarelto; gout; sleep apnea; diabetes; and panic attacks, who presented to the emergency room with complaints of persistent dizziness that started last evening at 6 p.m. He will be admitted under observation for: 1. Dizziness. I suspect that his dizziness could be related to benign positional vertigo, but within the differential is transient ischemic attack versus cerebrovascular accident. CT of the head was negative. He was seen in consultation by Neurology, who recommended a CTA venogram of the brain, which is currently pending. I will get neuro checks q.4 hours. He is currently is taking aspirin. We will continue aspirin 81 mg as well as Xarelto. I will check a lipid profile. He does have some nystagmus when looking to the left. I will also get orthostatic vital signs. Also within the differential, his dizziness could be related to hypoxia. His ABGs does show some hypoxemia. I will place him on oxygen 2 L nasal cannula as well. 2. Hypoxia. The ABG does show hypoxia. He does have a history of pulmonary hypertension. I will place him on 2 L nasal cannula. His hypoxia could be related to his underlying sleep apnea versus his recent diagnosis of pulmonary embolism. We will also continue on his Xarelto. 3. Pulmonary embolism. The patient was recently diagnosed with pulmonary embolism at the beginning of October of 2018. He was placed on Xarelto at that time. I will continue his Xarelto at 20 mg p.o. daily. We are repeating a CTA of the chest, results are currently pending at this time. 4. Diabetes type II. The patient does have diabetes. He currently takes Lantus 60 units b.i.d. at home. We will continue his Lantus at 60 units with fingersticks a.c. and h.s. 5. Anxiety. He will continue on bupropion as previously prescribed. 6. Gout. The patient should continue allopurinol as previously prescribed. 7. FEN: He can have a consistent carb diet. 8. Code status: He is a full code. 9. DVT prophylaxis: He will continue on Xarelto 20 mg p.o. daily as he is high risk scoring at a 5. 10. Disposition: The patient will be placed on [address] [place] [address]. TIME SPENT: Time spent on this admission was approximately 60 minutes, greater than half that time was spent at the bedside reviewing events leading thus far to his hospitalization, performing physical exam, and reviewing my plan of care. I have discussed this with my attending, Dr. Asha Enriquez; she is in agreement with my plan. BILLIE ALVAREZ NP [id number]/[facility] #: [id number] TAVO
[2018-11-20] MEDS: Mometasone/Formoter 200/5 MDI INH SCH (19:57)
[2018-11-20] MEDS: NS 0.9% 1000 ML** 1,000 ML IV SCH (20:00)
[2018-11-20] MEDS: Mirtazapine TAB* 15 MG PO SCH (20:17)
[2018-11-20] MEDS: Carvedilol TAB* 3.125 MG PO SCH (20:17)
[2018-11-20] MEDS: ARIPiprazole TAB* 5 MG PO SCH (20:17)
[2018-11-20] MEDS: Allopurinol TAB* 100 MG PO SCH (20:17)
[2018-11-20] MEDS: Insulin GLARGINE(*) 1 UNITS UNIT SUBCUT SCH (21:54)
[2018-11-21 06:43] LABS: ABS Eosinophils 0.2 10^3/ul (0-0.6); ABS Lymphocytes 0.7 10^3/ul (1.0-4.8); ABS Monocytes 0.3 10^3/ul (0-0.8); ABS Neutrophils 5.2 10^3/ul (1.5-7.7); Hematocrit 34 % (42-52); Hemoglobin 11.8 g/dL (14.0-18.0); Lymphocyte % 11.3 %; Mean Corpuscular HGB Conc 34 g/dL (31-36); Mean Corpuscular Hemoglobin 29 pg (27-31); Mean Corpuscular Volume 86 fL (80-94); Mean Platelet Volume 8.1 fL (7.4-10.4); Platelet Count 119 10^3/uL (150-450); Red Blood Count 4.02 10^6 /uL (4.18-5.48); Red Cell Distribution Width 16 % (10-15); White Blood Count 6.5 10^3/uL (3.5-10.8)
[2018-11-21] MEDS: NS 0.9% 1000 ML** 1,000 ML IV SCH ×2 (06:56→18:32)
[2018-11-21 07:04] LABS: BUN/Creatinine Ratio 12.8 (8-20); Calcium 8.4 mg/dL (8.6-10.3); EGFR African American 118.6 (>60); HDL Cholesterol 20.3 mg/dL
--- NOTE | 2018-11-21 08:05 | PN ---
Subjective Date of Service: 11/21/18 Interval History: HOSPITALIST PROGRESS NOTE Patient seen and examined at bedside. Care reviewed and d/w Ashok Hurst RN. He continues to complain of dizziness, worse with change in positions. Breathing is unchanged, denies chest pain. Family History: Unchanged from Admission Social History: Unchanged from Admission Past Medical History: Unchanged from Admission Objective Active Medications: Acetaminophen (Tylenol Tab*) 650 mg PO Q4H PRN PRN Reason: MILD PAIN or TEMP > 100.4 Albuterol (Ventolin Hfa Inhaler*) 2 puff INH Q6HR PRN PRN Reason: SHORTNESS OF BREATH Allopurinol (Zyloprim Tab*) 200 mg PO BID [facility] Last Admin: 11/20/18 20:17 Dose: 200 mg Aripiprazole (Abilify Tab*) 5 mg PO BEDTIME [facility] Last Admin: 11/20/18 20:17 Dose: 5 mg Aspirin (Aspirin 81 Mg Chew Tab*) 81 mg PO DAILY [facility] Bupropion HCl (Bupropion Xl*) 300 mg PO DAILY [facility] Carvedilol (Coreg Tab*) 3.125 mg PO BID [facility] Last Admin: 11/20/18 20:17 Dose: 3.125 mg Cetirizine HCl (Zyrtec*) 10 mg PO BEDTIME [facility] Sodium Chloride (Ns 0.9% 1000 Ml) 1,000 mls @ 100 mls/hr IV PER RATE [facility] Last Admin: 11/21/18 06:56 Dose: 100 mls/hr Insulin Glargine (Lantus(*)) 60 units SUBCUT BID [facility] Last Admin: 11/20/18 21:54 Dose: 60 units Meclizine HCl (Antivert Tab*) 25 mg PO Q8HR PRN PRN Reason: DIZZINESS Mirtazapine (Remeron Tab*) 15 mg PO BEDTIME [facility] Last Admin: 11/20/18 20:17 Dose: 15 mg Mometasone Furoate/Formoterol Fumar (Dulera 200/5 Mdi*) 2 puff INH BID [facility]; Protocol Last Admin: 11/20/18 19:57 Dose: 2 puff Non-Formulary Medication (Ambrisentan [Ambrisentan]) 5 mg PO DAILY [facility] Rivaroxaban (Xarelto(*)) 20 mg PO DAILY WITH MEAL [facility]Y Spironolactone (Aldactone Tab*) 50 mg PO DAILY [facility] Tadalafil (Adcirca (Nf)) 40 mg PO DAILY [facility]; Protocol Vital Signs - 8 hr 11/21/18 03:33 Temperature 97.2 F Pulse Rate 73 Respiratory 22 Rate Blood Pressure 110/43 (mmHg) O2 Sat by Pulse 94 Oximetry Oxygen Devices in Use Now: Nasal Cannula Appearance: Supermorbid obese gentleman sitting up in bed in NAD. Body habitus limits physical examination Eyes: No Scleral Icterus Ears/Nose/Mouth/Throat: Mucous Membranes Moist Neck: Trachea Midline Respiratory: Symmetrical Chest Expansion and Respiratory Effort, Clear to Auscultation Cardiovascular: RRR - Normal S1 and S2 Abdominal: NL Sounds; No Tenderness; No Distention - morbid obese Neurological: Alert and Oriented x 3, NL Muscle Strength and Tone, - - No nystagmus Result Diagrams: 11/21/18 05:43 11/21/18 05:43 Additional Lab and Data: Lab Results 11/20/18 11/20/18 11/20/18 Range/Units 13:44 13:44 13:44 WBC 7.6 (3.5-10.8) 10^3/uL RBC 4.45 (4.18-5.48) 10^6 /uL Hgb 12.9 L (14.0-18.0) g/dL Hct 38 L (42-52) % MCV 84 (80-94) fL MCH 29 (27-31) pg MCHC 34 (31-36) g/dL RDW 16 H (10-15) % Plt Count 136 L (150-450) 10^3/uL MPV 7.8 (7.4-10.4) fL Neut % (Auto) 78.2 % Lymph % (Auto) 12.8 % Ada % (Auto) 5.5 % Eos % (Auto) 3.0 % Baso % (Auto) 0.5 % Absolute Neuts (auto) 6.0 (1.5-7.7) 10^3/ul Absolute Lymphs (auto) 1.0 (1.0-4.8) 10^3/ul Absolute Monos (auto) 0.4 (0-0.8) 10^3/ul Absolute Eos (auto) 0.2 (0-0.6) 10^3/ul Absolute Basos (auto) 0.0 (0-0.2) 10^3/ul Absolute Nucleated RBC 0.0 10^3/ul Nucleated RBC % 0.0 INR (Anticoag Therapy) 1.43 H (0.82-1.09) Sodium 133 L (135-145) mmol/L Potassium 3.9 (3.5-5.0) mmol/L Chloride 101 (101-111) mmol/L Carbon Dioxide 25 (22-32) mmol/L Anion Gap 7 (2-11) mmol/L BUN 13 (6-24) mg/dL Creatinine 0.75 (0.67-1.17) mg/dL Est GFR ( Amer) 138.9 (>60) Est GFR (Non-Af Amer) 114.8 (>60) BUN/Creatinine Ratio 17.3 (8-20) Glucose 176 H (70-100) mg/dL Lactic Acid (0.5-2.0) mmol/L Calcium 8.8 (8.6-10.3) mg/dL Magnesium 1.9 (1.9-2.7) mg/dL Total Bilirubin 0.60 (0.2-1.0) mg/dL AST 12 L (13-39) U/L ALT 12 (7-52) U/L Alkaline Phosphatase 43 (34-104) U/L Troponin I 0.02 (<0.04) ng/mL C-Reactive Protein 29.74 H (<8.01) mg/L B-Natriuretic Peptide (<=100) pg/mL Total Protein 5.8 L (6.4-8.9) g/dL Albumin 3.7 (3.2-5.2) g/dL Globulin 2.1 (2-4) g/dL Albumin/Globulin Ratio 1.8 (1-3) TSH Pending 11/20/18 11/20/18 Range/Units 13:44 13:44 WBC (3.5-10.8) 10^3/uL RBC (4.18-5.48) 10^6 /uL Hgb (14.0-18.0) g/dL Hct (42-52) % MCV (80-94) fL MCH (27-31) pg MCHC (31-36) g/dL RDW (10-15) % Plt Count (150-450) 10^3/uL MPV (7.4-10.4) fL Neut % (Auto) % Lymph % (Auto) % Ada % (Auto) % Eos % (Auto) % Baso % (Auto) % Absolute Neuts (auto) (1.5-7.7) 10^3/ul Absolute Lymphs (auto) (1.0-4.8) 10^3/ul Absolute Monos (auto) (0-0.8) 10^3/ul Absolute Eos (auto) (0-0.6) 10^3/ul Absolute Basos (auto) (0-0.2) 10^3/ul Absolute Nucleated RBC 10^3/ul Nucleated RBC % INR (Anticoag Therapy) (0.82-1.09) Sodium (135-145) mmol/L Potassium (3.5-5.0) mmol/L Chloride (101-111) mmol/L Carbon Dioxide (22-32) mmol/L Anion Gap (2-11) mmol/L BUN (6-24) mg/dL Creatinine (0.67-1.17) mg/dL Est GFR ( Amer) (>60) Est GFR (Non-Af Amer) (>60) BUN/Creatinine Ratio (8-20) Glucose (70-100) mg/dL Lactic Acid 0.7 (0.5-2.0) mmol/L Calcium (8.6-10.3) mg/dL Magnesium (1.9-2.7) mg/dL Total Bilirubin (0.2-1.0) mg/dL AST (13-39) U/L ALT (7-52) U/L Alkaline Phosphatase (34-104) U/L Troponin I (<0.04) ng/mL C-Reactive Protein (<8.01) mg/L B-Natriuretic Peptide 46 (<=100) pg/mL Total Protein (6.4-8.9) g/dL Albumin (3.2-5.2) g/dL Globulin (2-4) g/dL Albumin/Globulin Ratio (1-3) TSH Assess/Plan/Problems-Billing Assessment: Mr Urbina is a 43yo M with PMH of supermorbid obesity with BMI 61, severe pulmonary HTN, presumed PE, gout, NILES on CPAP, type 2 DM, anxiety, who was transferred from our Facility to [facility] in September 2018 for pulmonary HTN w/u; who returns to our ED with c/o dizziness. - Patient Problems (1) Dizziness Comment: - Orthostatics were negative this time. - CT head negative for venous thrombosis. - His MARY JANE tells me his dizziness never really got better; he had it when he was discharged from [facility] - I don't think this is secondary to his new medications. - Awaiting Neurology f/u. (2) Pulmonary hypertension Comment: - Right heart cath done at [facility] demonstrated severe pulmonary HTN. - Records from [place] shows V/Q with possible sequela of PE in the right lung; LE doppler was negative for DVT; right heart cath showed elevated right and borderline mildly elevated left heart filling pressures, normal left pulmonary artery anatomy and no evidence of central or primary branch pulmonary embolus of the right lung, with possible distal subbranch disease. Impression was of group 1 PAH with acute clot likely explaining his decompensation. Recommended treatment with Ambrisetam and Adcirca. Torsemide and Aldactone were also added. - Continue Ambrisetam and Adcirca. (3) Pulmonary embolism Comment: - Continue Xarelto. - CTA chest was negative at this time. (4) Type 2 diabetes mellitus Comment: - Continue Lantus and Lispro SS. (5) DVT prophylaxis Comment: - Xarelto. (6) Full code status Status and Disposition: Inpatient.
[2018-11-21] MEDS: Mometasone/Formoter 200/5 MDI INH SCH ×2 (08:46→19:16)
[2018-11-21] MEDS ORDERED: AMBRISENTAN 5 MG PO SCH (09:00)
[2018-11-21] MEDS: BuPROPion XL* 300 MG TAB.XL PO SCH (09:01)
[2018-11-21] MEDS: Spironolactone TAB* 25 MG PO SCH (09:01)
[2018-11-21] MEDS: Insulin GLARGINE(*) 1 UNITS UNIT SUBCUT SCH ×2 (09:01→21:07)
[2018-11-21] MEDS: Allopurinol TAB* 100 MG PO SCH ×2 (09:01→21:00)
[2018-11-21] MEDS: Carvedilol TAB* 3.125 MG PO SCH ×2 (09:01→21:06)
[2018-11-21] MEDS: Aspirin 81 mg CHEW TAB* 81 MG TAB.CHEW PO SCH (09:01)
[2018-11-21] MEDS: Rivaroxaban TAB(*) 20 MG TAB PO SCH (09:01)
[2018-11-21] MEDS: TADALAFIL 20 MG PO SCH (09:13)
--- NOTE | 2018-11-21 14:38 | CONS ---
PULMONARY CONSULTATION REPORT: DATE OF CONSULT: 11/21/18 REQUESTING PHYSICIAN: Billie Alvarez NP REASON FOR CONSULT: Evaluation of pulmonary hypertension. HISTORY OF PRESENT ILLNESS: The patient is a 43-year-old morbidly obese male recently diagnosed with pulmonary hypertension after right heart catheterization ; history of gout; sleep apnea, on CPAP; recently diagnosed with pulmonary embolism at [place], on anticoagulation; diabetes; panic attacks. The patient presents for evaluation of dizziness. The patient reports he has been having dizziness for quite sometime even during his prior hospitalization in September. He also had chest pain at that time, which was evaluated with right heart catheterization, which did reveal normal coronaries and was noted to have elevated pulmonary pressures with no significant elevation in wedge pressure. The patient subsequently was transferred to [place] for further management of his pulmonary hypertension, which seemed to be having symptomatic. The patient subsequently was discharged from there. He was in the interim diagnosed as per the patient with pulmonary embolism, started on Xarelto. He was also started on tadalafil and ambrisentan for pulmonary hypertension. The patient comes in for evaluation of dizziness. He was in the emergency room 1 day prior for same complaint. The patient reports the dizziness symptoms would improve sometimes with hydrating himself. He has been doing well after discharged for couple of days before this episode started to be significant. He feels like his room spins around him, has also noticed some heaviness in arms and legs. It does not bother him during his sleep. Dizziness also happens when he is lying down. The patient reports that severity of dizziness is about 7/10 today. He denies any viral infection or cold like symptoms recently. Reports intermittent chest discomfort. The patient was seen by Neurology, imaging of the brain did not reveal any intracranial abnormality. Chest x-ray did not reveal any significant acute process. He had CTA for evaluation of recurrence of worsening of pulmonary hypertension, which was limited for evaluation of subsegmental pulmonary arteries given motion artifact. He, however, did not have any evidence of filling defects in main pulmonary arteries. To my interpretation, the CT also shows scattered ground glass opacities bilaterally with some mosaic attenuation pattern. The patient had blood gas, which showed slight respiratory alkalosis with pH of 7.47, pCO2 of 35, pO2 of 65, bicarb of 26.5 with sats of 95% while on 1 L O2. He did not have any electrolyte abnormalities. His blood sugar is slightly elevated. BNP was within normal limits. Lactic acid also within normal limits. He does have mild anemia with hemoglobin around 11.8 to 12. The patient was continued on his tadalafil. He was also continued on Xarelto and ambrisentan. He was on Symbicort for possible reactive airways disease and was switched to Dulera here. He continues to be on his cardiac medications with Coreg. He is also on Aldactone. The patient is also on meclizine for the vertigo. He does not think that made any difference for his symptoms. PAST MEDICAL HISTORY: 1. Pulmonary hypertension. 2. Pulmonary embolism, on Xarelto. 3. Gout. 4. Sleep apnea, on CPAP. 5. Diabetes. 6. Panic attacks. PAST SURGICAL HISTORY: Right arm surgery and cardiac catheterization. HOME MEDICATIONS: 1. Albuterol. 2. Allopurinol. 3. Ambrisentan. 4. Abilify. 5. Aspirin. 6. Symbicort. 7. Bupropion. 8. Carvedilol. 9. Ophthalmic eye drops. 10. Lantus. 11. Claritin. 12. Remeron. 13. Nystatin 14. Xarelto. 15. Spironolactone. 16. Tadalafil. 17. Torsemide. ALLERGIES: 1. DEXTROMETHORPHAN. 2. GUANFACINE. 3. IBUPROFEN 4. ORANGE OIL. 5. GLIPIZIDE. 6. NITRO. 7. BEES. FAMILY HISTORY: Mother with history of congestive heart failure, sister with [place] , grandfather with diabetes, and mother with history of skin cancer. SOCIAL HISTORY: No alcohol, tobacco, or drug abuse. REVIEW OF SYSTEMS: As per HPI. PHYSICAL EXAM: Morbidly obese male, in bed, in no apparent distress. Vital Signs: Temperature 98.1, pulse 78 beats per minute, respiratory rate 20 per minute, O2 sat 92% on room air, blood pressure 110/59. HEENT: Pupils equal, reactive to light. Mucous membranes moist. Lungs: Good air entry bilaterally. No wheeze on auscultation. Cardiovascular: S1, S2 present. No murmur, loud S2. Abdomen: Obese. Bowel sounds present. Nontender, nondistended. Neuro: Alert, awake, and oriented x3. No focal deficits. Skin: No rash. DIAGNOSTIC STUDIES/LAB DATA: WBC count 6.5, hemoglobin 11.8, hematocrit 34, platelet count of 119; pH 7.47, pCO2 of 35, pO2 of 65, O2 sats 95%. Sodium 136 , potassium 4, chloride 105, bicarb 25, BUN 11, creatinine 0.86, glucose elevated. BNP 46. CTA of the chest as described above in HPI. IMPRESSION AND RECOMMENDATIONS: 43-year-old morbidly obese male with history of pulmonary hypertension with evidence of dilated pulmonary artery on CTA, also with evidence of elevated pressures on echo and also with mean pressure of 74 noted on heart catheterization. The patient was subsequently transferred to [place] for management of pulmonary hypertension. He had been started on dual medications with ambrisentan and also with tadalafil. He was also diagnosed with possible pulmonary embolism, unclear at this time as we do not have those records and was started on Xarelto. The patient with this complaint of dizziness going on for the past month to 6 weeks with intermittent improvement, however, worsened again, being evaluated for that. He was seen by Neurology, so far no neurological issue has been ascertained. Unclear etiology of his dizziness. Unsure if the medications are in any ways contributing to that. Dizziness could be seen in people with pulmonary hypertension, however, he was started on treatment. He has followup with pulmonary hypertension specialist, Dr. Lopez in [place] next month. He does not have any evidence of fibrotic lung disease or severe obstructive lung disease. He does have patchy ground glass opacities, which could be from extreme obesity and restrictive ventilatory defect or there is a possibility of chronic thromboembolism from his weight that might have not been diagnosed and could have led to the pulmonary hypertension as well. Any ways, he is being appropriately treated from that direction. His sleep apnea is being optimally treated as per the patient. I will, however, obtain overnight oximetry while he is wearing CPAP today during the night and would monitor for any hypoxemia that could be corrected to help improve his pulmonary pressures. His last sleep testing was in 2003, at which point, he was on BIPAP 14/12. It was documented that he has severe obstructive sleep apnea. He definitely has Pickwickian features. Thank you for allowing me to participate in the care of your patient. We will follow up with you. [id number]/[facility] #: [id number] TAVO
[2018-11-21] MEDS: Acetaminophen TAB* 325 MG PO PRN (15:44)
--- NOTE | 2018-11-21 16:05 | CONSULT ---
Subjective Date of Service: 11/21/18 Interval History: Mr. Urbina is a 43 yo male with PMH significant for PE on Xarelto, pulmonary HTN, GOUT, NILES, DM2, morbid obesity, and anxiety; who presented to the hospital with complaints of dizziness. He presented to the hospital with an ulcer to the plantar aspect of his right foot. He has followed with Podiatry for this and a callous was recently removed. He has been using an "ointment" on the area. Patient seen and examined at bedside. Family History: Unchanged from Admission Social History: Unchanged from Admission Past Medical History: Unchanged from Admission Review of Systems - Measurements Intake and Output: Intake and Output Last 24 Hours 11/19/18 11/20/18 11/21/18 11/22/18 06:59 06:59 06:59 06:59 Intake Total 1968 184 Output Total 0 Balance 1968 184 Weight 400 lb 14.4 oz Intake: IV Fluids 1968 500 NS (0.9%) 500 Oral 0 1340 Output: Urine 0 - Review of Systems Constitutional Symptoms: Negative: Fever, Other - Chills Dermatology: Positive: Other - Callous to right foot Endocrinology: Positive: Obesity, Diabetes Mellitus Objective Active Medications: Acetaminophen (Tylenol Tab*) 650 mg PO Q4H PRN Reason: MILD PAIN or TEMP > 100.4 Albuterol (Ventolin Hfa Inhaler*) 2 puff INH Q6HR PRN Reason: SHORTNESS OF BREATH Allopurinol (Zyloprim Tab*) 200 mg PO BID [facility] Aripiprazole (Abilify Tab*) 5 mg PO BEDTIME [facility] Aspirin (Aspirin 81 Mg Chew Tab*) 81 mg PO DAILY [facility] Bupropion HCl (Bupropion Xl*) 300 mg PO DAILY [facility] Carvedilol (Coreg Tab*) 3.125 mg PO BID [facility] Cetirizine HCl (Zyrtec*) 10 mg PO BEDTIME [facility] Sodium Chloride (Ns 0.9% 1000 Ml) 1,000 mls @ 100 mls/hr IV PER RATE [facility] Insulin Glargine (Lantus(*)) 60 units SUBCUT BID [facility] Meclizine HCl (Antivert Tab*) 25 mg PO Q8HR PRN Reason: DIZZINESS Mirtazapine (Remeron Tab*) 15 mg PO BEDTIME [facility] Mometasone Furoate/Formoterol Fumar (Dulera 200/5 Mdi*) 2 puff INH BID [facility]; Protocol Non-Formulary Medication (Ambrisentan [Ambrisentan]) 5 mg PO DAILY [facility] Rivaroxaban (Xarelto(*)) 20 mg PO DAILY WITH MEAL [facility] Spironolactone (Aldactone Tab*) 50 mg PO DAILY [facility] Tadalafil (Adcirca (Nf)) 40 mg PO DAILY [facility]; Protocol Vital Signs 11/21/18 15:15 Temperature 98.1 F Pulse Rate 77 Respiratory 20 Rate Blood Pressure 108/61 (mmHg) O2 Sat by Pulse 96 Oximetry Oxygen Devices in Use Now: None Appearance: NAD, sitting up in a chair Ears/Nose/Mouth/Throat: Mucous Membranes Moist Respiratory: Symmetrical Chest Expansion and Respiratory Effort Extremities: - - 1+ right DP Skin: - - Bilateral LEs with chronic skin changes. See skin note below Result Diagrams: 11/22/18 06:49 11/22/18 06:49 Additional Lab and Data: Above labs were pulled into the note when edited prior to signing, below are the labs from the day of consultation. Laboratory Tests 11/20/18 11/21/18 11/21/18 13:44 05:43 05:43 WBC 6.5 Hgb 11.8 L Hct 34 L Plt Count 119 L Sodium 136 Potassium 4.0 Chloride 105 Carbon Dioxide 25 BUN 11 Creatinine 0.86 Glucose 199 H C-Reactive Protein 29.74 H Skin Deviation Note - Skin Deviation Findings Right foot wound - Diabetic ulcer to the right plantar aspect of the foot between the 1st and 2nd metatarsals. There area is calloused, measures 1.5 cm x 1 cm. The surrounding skin is intact. There is no drainage. Wound Problem/Plan Assessment: Mr. Urbina is a 43 yo male with PMH significant for PE on Xarelto, pulmonary HTN, GOUT, NILES, DM2, morbid obesity, and anxiety; who presented to the hospital with complaints of dizziness. He presented to the hospital with an ulcer to the plantar aspect of his right foot. 1. Right plantar foot wound. Suspect this represents a diabetic ulcer with a callous. Recommend applying ABX ointment to the area and cover with rolled gauze , change the dressing daily. DP pulse is 1+. Consider ABIs to evaluate circulation. He should continue to follow with his Electric Needle Specialist, or could be referred to the wound center at discharge. The callous will need to be be pared again. 2. DM2. HgA1C 11.2 on 10/25/18. Maintain glycemic control to allow for wound healing. 3. Obesity. BMI 60.8. 4. Diet. Consistent Carbohydrate. 5. Code Status. Full Code Status. 6. Disposition. Inpatient, disposition per primary medicine team. Is Patient a Wound Clinic Patient: No Counseling and/or Coordination of Care Minutes: 25 Points of Discussion: TIME SPENT: Time for this wound consultation was 25 minutes and 15 minutes was spent with the patient and discussing past medical history; assessing, measuring, and photographing the wound; applying a dressing. Attending: Priscilla Elizalde
[2018-11-21] MEDS ORDERED: Dextrose 50% VIAL 50 ml IV PUSH PRN (17:30)
[2018-11-21] MEDS: Cetirizine* 10 MG TAB PO SCH (21:02)
[2018-11-21] MEDS: ARIPiprazole TAB* 5 MG PO SCH (21:06)
[2018-11-21] MEDS: Insulin LISPRO* 1 UNITS UNIT SUBCUT SCH (21:09)
[2018-11-21] MEDS: Mirtazapine TAB* 15 MG PO SCH (21:11)
[2018-11-22 07:14] LABS: ABS Eosinophils 0.2 10^3/ul (0-0.6); ABS Lymphocytes 0.8 10^3/ul (1.0-4.8); ABS Monocytes 0.4 10^3/ul (0-0.8); ABS Neutrophils 5.3 10^3/ul (1.5-7.7); Hematocrit 36 % (42-52); Lymphocyte % 11.5 %; Mean Corpuscular HGB Conc 34 g/dL (31-36); Mean Corpuscular Hemoglobin 29 pg (27-31); Mean Corpuscular Volume 86 fL (80-94); Mean Platelet Volume 7.7 fL (7.4-10.4); Nucleated Red Blood Cells % 0.1; Platelet Count 126 10^3/uL (150-450); Red Blood Count 4.17 10^6 /uL (4.18-5.48); Red Cell Distribution Width 16 % (10-15); White Blood Count 6.7 10^3/uL (3.5-10.8)
[2018-11-22 07:28] LABS: BUN/Creatinine Ratio 12.7 (8-20); Calcium 8.6 mg/dL (8.6-10.3); EGFR African American 130.8 (>60); EGFR Non-African American 108.1 (>60); Potassium 4.2 mmol/L (3.5-5.0)
[2018-11-22] MEDS: Mometasone/Formoter 200/5 MDI INH SCH ×2 (07:53→19:11)
--- NOTE | 2018-11-22 08:14 | PN ---
Subjective Date of Service: 11/22/18 Interval History: HOSPITALIST PROGRESS NOTE Patient seen and examined at bedside. Care reviewed and d/w Ashok Hurst RN. His dizziness remains unchanged. He states the room continues to spin; he rates it a 4/10 when laying down and 7-9/10 when standing up. Denies CP, palpitations , N/V. Had headache yesterday, relieved with Tylenol. Family History: Unchanged from Admission Social History: Unchanged from Admission Past Medical History: Unchanged from Admission Objective Active Medications: Acetaminophen (Tylenol Tab*) 650 mg PO Q4H PRN PRN Reason: MILD PAIN or TEMP > 100.4 Last Admin: 11/21/18 15:44 Dose: 650 mg Albuterol (Ventolin Hfa Inhaler*) 2 puff INH Q6HR PRN PRN Reason: SHORTNESS OF BREATH Allopurinol (Zyloprim Tab*) 200 mg PO BID [facility] Last Admin: 11/21/18 21:00 Dose: 200 mg Aripiprazole (Abilify Tab*) 5 mg PO BEDTIME [facility] Last Admin: 11/21/18 21:06 Dose: 5 mg Aspirin (Aspirin 81 Mg Chew Tab*) 81 mg PO DAILY [facility] Last Admin: 11/21/18 09:01 Dose: 81 mg Bupropion HCl (Bupropion Xl*) 300 mg PO DAILY [facility] Last Admin: 11/21/18 09:01 Dose: 300 mg Carvedilol (Coreg Tab*) 3.125 mg PO BID [facility] Last Admin: 11/21/18 21:06 Dose: 3.125 mg Cetirizine HCl (Zyrtec*) 10 mg PO BEDTIME [facility] Last Admin: 11/21/18 21:02 Dose: 10 mg Dextrose (Dextrose 50% Vial 50 Ml*) 25 ml IV PUSH .FOR FS < 60 - SS PRN PRN Reason: FS < 60 Insulin Glargine (Lantus(*)) 60 units SUBCUT BID [facility] Last Admin: 11/21/18 21:07 Dose: Not Given Insulin Human Lispro (Humalog*) 0 units SUBCUT ACHS [facility]; Protocol Last Admin: 11/21/18 21:09 Dose: Not Given Meclizine HCl (Antivert Tab*) 25 mg PO Q8HR PRN PRN Reason: DIZZINESS Mirtazapine (Remeron Tab*) 15 mg PO BEDTIME [facility] Last Admin: 11/21/18 21:11 Dose: 15 mg Mometasone Furoate/Formoterol Fumar (Dulera 200/5 Mdi*) 2 puff INH BID [facility]; Protocol Last Admin: 11/22/18 07:53 Dose: 2 puff Pto: [Ambrisentan] 5 (Mg) 5 mg PO DAILY [facility] Rivaroxaban (Xarelto(*)) 20 mg PO DAILY WITH MEAL [facility] Last Admin: 11/21/18 09:01 Dose: 20 mg Spironolactone (Aldactone Tab*) 50 mg PO DAILY [facility] Last Admin: 11/21/18 09:01 Dose: 50 mg Tadalafil (Adcirca (Nf)) 40 mg PO DAILY [facility]; Protocol Last Admin: 11/21/18 09:13 Dose: Not Given Vital Signs - 8 hr 11/22/18 03:15 Temperature 97.9 F Pulse Rate 67 Respiratory 14 Rate Blood Pressure 108/73 (mmHg) O2 Sat by Pulse 97 Oximetry Oxygen Devices in Use Now: Nasal Cannula Appearance: Supermorbid obese gentleman lying in bed in NAD. Eyes: No Scleral Icterus Ears/Nose/Mouth/Throat: Mucous Membranes Moist Neck: Trachea Midline Respiratory: Symmetrical Chest Expansion and Respiratory Effort, Clear to Auscultation Cardiovascular: RRR - Normal S1 and S2 Abdominal: NL Sounds; No Tenderness; No Distention - morbid obese Neurological: Alert and Oriented x 3, NL Muscle Strength and Tone, - - No nystagmus Result Diagrams: 11/22/18 06:49 11/22/18 06:49 Assess/Plan/Problems-Billing Assessment: Mr Urbina is a 43yo M with PMH of supermorbid obesity with BMI 61, severe pulmonary HTN, presumed PE, gout, NILES on CPAP, type 2 DM, anxiety, who was transferred from our Facility to [facility] in September 2018 for pulmonary HTN w/u; who returns to our ED with c/o dizziness. - Patient Problems (1) Dizziness Comment: - Orthostatics were negative. - CT head negative for venous thrombosis. - His MARY JANE tells me his dizziness never really got better; he had it when he was discharged from [place] - I don't think this is secondary to his new medications , but have a call out to Dr Chandler Lopez ([phone]) to discuss possibility of medication side effect. - D/w Dr Villarreal - with his h/o PE, will check echo with bubble study, MRI brain , MRA head/neck to r/o posterior circulation CVA. - He states no medication has given him any relief from his dizziness. (2) Hypoxia Comment: - D/w Dr Locke - qualifies for O2 with CPAP overnight. Will start 2 liters with CPAP. (3) Pulmonary hypertension Comment: - Right heart cath done at [facility] demonstrated severe pulmonary HTN. - Records from [place] shows V/Q with possible sequela of PE in the right lung; LE doppler was negative for DVT; right heart cath showed elevated right and borderline mildly elevated left heart filling pressures, normal left pulmonary artery anatomy and no evidence of central or primary branch pulmonary embolus of the right lung, with possible distal subbranch disease. Impression was of group 1 PAH with acute clot likely explaining his decompensation. Recommended treatment with Ambrisetam and Tadalafil. Torsemide and Aldactone were also added. - Able to reach Dr Lopez's RN ([facility]) - headache is a common side effect with thos meds. Awaiting Dr Lopez's call back. - Continue supplemental O2. - BNP is down to 66. (4) Pulmonary embolism Comment: - Continue Xarelto. - CTA chest was negative at this time. (5) Type 2 diabetes mellitus Comment: - Continue Lantus and Lispro SS. (6) Diabetic foot ulcer Comment: - Right foot diabetic ulcer - no signs of active infection. - Will do daily dressing changes with antibiotic ointment and gauze. (7) DVT prophylaxis Comment: - Xarelto. (8) Full code status Status and Disposition: Inpatient.
[2018-11-22] MEDS: Carvedilol TAB* 3.125 MG PO SCH ×2 (08:57→21:07)
[2018-11-22] MEDS: Allopurinol TAB* 100 MG PO SCH ×2 (08:58→21:07)
[2018-11-22] MEDS: Rivaroxaban TAB(*) 20 MG TAB PO SCH (08:59)
[2018-11-22] MEDS: BuPROPion XL* 300 MG TAB.XL PO SCH (09:00)
[2018-11-22] MEDS: Spironolactone TAB* 25 MG PO SCH (09:00)
[2018-11-22] MEDS: Aspirin 81 mg CHEW TAB* 81 MG TAB.CHEW PO SCH (09:01)
[2018-11-22] MEDS: Insulin LISPRO* 1 UNITS UNIT SUBCUT SCH ×4 (09:01→21:06)
[2018-11-22] MEDS: Insulin GLARGINE(*) 1 UNITS UNIT SUBCUT SCH ×2 (09:02→21:07)
[2018-11-22] MEDS: TADALAFIL 20 MG PO SCH (09:07)
[2018-11-22] MEDS: AMBRISENTAN 5 MG PO SCH (09:08)
[2018-11-22] MEDS: Acetaminophen TAB* 325 MG PO PRN (14:02)
[2018-11-22] MEDS ORDERED: Perflutren Lipid Microsphere* 3 ML VIAL ONE (16:26)
[2018-11-22] MEDS: Neomycin/Polym/Bacit TOP OINT* 15 GM TOPICAL SCH (16:48)
--- NOTE | 2018-11-22 20:05 | CONS ---
NEUROLOGY FOLLOWUP CONSULT: DATE OF FOLLOWUP: 11/22/18 LOCATION: He is an inpatient, room 441. HOSPITALIST: Dr. Breen. CHIEF COMPLAINT: Dizziness. INTERVAL HISTORY: Since my last visit with Trae, he continues with dizziness. He says it fluctuates between a 7 to a 10/10. He is lying in bed, having dinner and watching television and says it is a 7/10. I reviewed physical therapy records and he has difficulty walking with assistance. He has not had any problems with nausea or double vision. MEDICATIONS: Reviewed and he is on: 1. Allopurinol 200 mg p.o. b.i.d. 2. Abilify 5 mg p.o. at bedtime. 3. Bupropion 300 mg p.o. q. day. 4. Coreg 3.125 mg p.o. b.i.d. 5. Sliding scale insulin. 6. Meclizine 25 mg p.o. q.8 hours as needed for dizziness. 7. Remeron 15 mg p.o. at bedtime. 8. Xarelto 20 mg p.o. q. day. 9. Aldactone 50 mg p.o. q. day. 10. Tadalafil 40 mg p.o. q. day. PHYSICAL EXAMINATION: On physical exam, he is morbidly obese. Most recent temperature 98.1, blood pressure 113/52, heart rate 79 and regular. Respiratory rate is 20 and oxygen saturation is 96% on room air. Neurological Exam: Pupils are equal and react to light from 3 to 2 mm. Funduscopic exam reveals sharp discs bilaterally. Eye movements are full and I do not see any nystagmus whatsoever. Speech is clear and soft. There is no dysarthria. There is no sustention, rest, or action tremor. DIAGNOSTIC STUDIES/LAB DATA: Laboratory data reviewed includes MRI scans of the brain and MR angiogram of the neck and head today all of which are normal. Other laboratory data is notable for a CBC this morning with a hemoglobin of 12 and hematocrit of 36 which is stable. Platelet count remains a little bit low at 126 which is relatively unchanged. IMPRESSION: Impression is that of nonspecific dizziness without evidence of vestibular dysfunction. Perhaps this is a drug effect from one of his medications such as tadalafil. He is on a number of psychotropic medications chronically including mirtazapine, bupropion, and Abilify, but the doses have been stable. I will discuss the results of his MRI with Dr. Breen tomorrow. We could consider doing a lumbar puncture to measure opening pressure, but would have to get him off his anticoagulants, with his recent pulmonary embolism that would be certainly somewhat hazardous. Also, he has normal optic discs to my exam. I will continue to follow him. [id number]/[facility] #: [id number] MTDD
[2018-11-22] MEDS: Mirtazapine TAB* 15 MG PO SCH (21:07)
[2018-11-22] MEDS: Cetirizine* 10 MG TAB PO SCH (21:07)
[2018-11-22] MEDS: ARIPiprazole TAB* 5 MG PO SCH (21:07)
--- NOTE | 2018-11-22 21:58 | ECHO ---
*[facility]* [place] [address] Fax #: [phone] Transthoracic Echocardiogram Patient: Trae Urbina : 1975 Study Date: 11/22/2018 Age: 43 Gender: M HR: 80 bpm Height: 68 in /172.7 cm BSA: 2.74 m^2 Weight: 399.2 lb /181.4 kg BMI: 60.8 kg/m^2 *Opening Machine Cleaner: * Belle Su RD *Referring Physician: * Linnea KimReading Physician: * Becki Finch MD Indications: CVA. Pulmonary Hypertension History: Pulmonary Embolism. Risk factors: Hypertension. Diabetes mellitus. Morbidly obese. Hyperlipidemia. Conclusions Summary: - Procedure narrative: Image quality was suboptimal, technically limited due to body habitus. - Left ventricle: The cavity size is normal. Wall thickness is moderately increased. Systolic function is hyperdynamic. The estimated ejection fraction is 70-75%. - Right ventricle: The cavity size is mildly to moderately dilated. Wall thickness is moderately increased. Systolic function is moderately reduced. - Ventricular septum: There is septal flattening of the interventricular septum consistent with RV volume or pressure overload. - Atrial septum: Poorly visualized. - Mitral valve: There is trace regurgitation. - Aortic valve: There is trace to mild regurgitation. - Tricuspid valve: There is mild-moderate regurgitation. - Pulmonary arteries: Systolic pressure is mildly increased. Pulmonary artery pressure may be underestimated The peak pressure during systole by Doppler is 40.0 mm Hg. - Compared with prior echocardiogram of 09/20/18, left ventricle function is stable, right ventricle dilatation and function not significantly changed, valve function is stable, pulmonary artery pressure previously estimated at 54 mmHg. Recommendations: Study quality suboptimal to rule out cardioembolic etiologies. If clinically indicated consider transesophageal echocardiogram to evaluate possible cardioembolic etiologies for cerebrovascular accident. Study data: Transthoracic echocardiogram. Procedure: Transthoracic echocardiography was performed. Image quality was suboptimal. The study was technically limited due to body habitus. Intravenous Definity , 4 mlswas administered. A bubble study was performed. Complete 2D, spectral Doppler, and color flow Doppler. Location: Bedside. Patient status: Inpatient. Patient room number: 441-1. Rhythm: Normal sinus rhythm. Findings Left ventricle: The cavity size is normal. Wall thickness is moderately increased. Systolic function is hyperdynamic. The estimated ejection fraction is 70-75%. Wall motion is normal; there are no regional wall motion abnormalities. There is no consistent Doppler evidence of clinically significant diastolic dysfunction. Right ventricle: The cavity size is mildly to moderately dilated. Wall thickness is moderately increased. Systolic function is moderately reduced. Systolic pressure is mildly to moderately increased. Ventricular septum: There is septal flattening of the interventricular septum consistent with RV volume or pressure overload. Left atrium: The atrium is mildly to moderately dilated. Right atrium: The atrium is moderately dilated. Atrial septum: Poorly visualized. A shunt cannot be excluded. Bubble study images 86 and 87. Mitral valve: The leaflets are normal thickness. There is no evidence of stenosis. There is trace regurgitation. Aortic valve: The leaflets are mildly thickened. There is no evidence of stenosis. There is trace to mild regurgitation. Tricuspid valve: The leaflets are normal thickness. There is no evidence of stenosis. There is mild-moderate regurgitation. Pulmonic valve: Poorly visualized. The leaflets are normal thickness. There is no evidence of stenosis. There is mild regurgitation. Aorta: Aortic root: The aortic root is appears normal. Ascending aorta: The ascending aorta is appears normal. Aortic arch: The aortic arch is appears normal. Pericardium: A prominent pericardial fat pad is present. There is no significant pericardial effusion. Pulmonary arteries: The main pulmonary artery is dilated. Systolic pressure is mildly increased. Pulmonary artery pressure may be underestimated Systemic veins: Inferior vena cava: The vessel is normal in size. There is (>= 50%) respiratory change in the IVC dimension. Measurements Left ventricle Value Ref Aortic valve Value Ref RADHA, LAX 4.3 cm 4.2 - 5.8 Miah diam, ED 2.3 cm ----- ESD, LAX 3.2 cm 2.5 - 4.0 Peak v, S 2.18 m/sec ----- FS, LAX 27 % 25 - 43 VTI, S 38.4 cm ----- PW, ED, LAX (H) 1.4 cm 0.6 - 1.0 Mean grad, S 10.0 mm Hg ----- FS 27 % 25 - 43 Peak grad, S 19.0 mm Hg ----- PW, ED (H) 1.4 cm 0.6 - 1.0 LVOT/AV, VTI ratio 0.91 ----- E', lat miha, TDI 13.8 cm/sec >=10.0 E/e', lat miah, 6 Mitral valve Value Ref TDI Peak E 0.86 m/sec ----- E', med miah, TDI 7.4 cm/sec >=7.0 Peak A 0.63 m/sec --- -- E/e', med miah, 12 Decel time 204 ms ----- TDI Peak grad, D 2.9 mm Hg ----- E', avg, TDI 10.6 cm/sec Peak E/A ratio 1.4 ----- E/e', avg, TDI 8 <=14 Pulmonic valve Value Ref LVOT Value Ref Peak v, S 1.32 m/sec ----- Peak arlene, S 1.72 m/sec Peak grad, S 7.0 mm Hg ----- VTI, S 35.0 cm TX v, ED 1.81 m/sec ----- Peak grad, S 12 mm Hg TX grad, ED 13 mm Hg ----- Mean grad, S 7 mm Hg Tricuspid valve Value Ref Ventricular septum Value Ref TR peak v (H) 3.2 m/sec <=2.8 IVS, ED (H) 1.3 cm 0.6 - 1.0 Peak RV-RA grad, S 41 mm Hg ----- Right ventricle Value Ref Aortic root Value Ref AW thickness, ED (H) 1.1 cm 0.1 - 0.5 Root diam 3.0 cm <4.7 RADHA, LAX 3.1 cm RADHA minor ax, A4C (H) 4.7 cm 1.9 - 3.5 Ascending aorta Value Ref mid AAo AP diam, S 3.4 cm ----- Pressure, S 44 mm Hg Aortic arch Value Ref Left atrium Value Ref Arch diam 2.2 cm ----- AP dim, ES 3.20 cm 3.00 - 4.00 Decending aorta Value Ref ML dim, A4C 4.7 cm Chauncey peak arlene 1.12 m/sec ----- SI dim, A4C 6.4 cm Vol/bsa, ES, 1-p (H) 39 ml/m^2 12 - 37 Pulmonary artery Value Ref A4C Pressure, S 40.0 mm Hg ----- Vol/bsa, ES, A/L (H) 40 ml/m^2 16 - 34 Inferior vena cava Value Ref Right atrium Value Ref Diam 1.6 cm ----- SI dim, ES (H) 6.2 cm 3.4 - 5.3 ML dim, ES, A4C 4.1 cm 2.6 - 4.4 SI dim, ES, A4C (H) 6.2 cm 3.4 - 5.3 Estimated RAP 3 mm Hg Legend: (L) and (H) deb values outside specified reference range. Prepared and electronically signed by Becki Finch MD 11/22/2018 21:57
[2018-11-23] MEDS: Mometasone/Formoter 200/5 MDI INH SCH ×2 (08:05→19:53)
[2018-11-23] MEDS: Insulin LISPRO* 1 UNITS UNIT SUBCUT SCH ×4 (08:59→20:55)
[2018-11-23] MEDS: Spironolactone TAB* 25 MG PO SCH (09:29)
[2018-11-23] MEDS: Carvedilol TAB* 3.125 MG PO SCH ×2 (09:29→20:04)
[2018-11-23] MEDS: BuPROPion XL* 300 MG TAB.XL PO SCH (09:29)
[2018-11-23] MEDS: Insulin GLARGINE(*) 1 UNITS UNIT SUBCUT SCH ×2 (09:29→20:55)
[2018-11-23] MEDS: Aspirin 81 mg CHEW TAB* 81 MG TAB.CHEW PO SCH (09:29)
[2018-11-23] MEDS: Rivaroxaban TAB(*) 20 MG TAB PO SCH (09:29)
[2018-11-23] MEDS: Allopurinol TAB* 100 MG PO SCH ×2 (09:29→20:04)
[2018-11-23] MEDS: AMBRISENTAN 5 MG PO SCH (09:30)
[2018-11-23] MEDS: Neomycin/Polym/Bacit TOP OINT* 15 GM TOPICAL SCH (09:31)
[2018-11-23] MEDS: TADALAFIL 20 MG PO SCH (09:31)
--- NOTE | 2018-11-23 15:31 | PN ---
Subjective Date of Service: 11/23/18 Interval History: Patient has no new complaints. He has 6/10 dizziness, a heaviness in his head, at rest. It goes up to 9-10 w/ standing and walking. Walking to BR w/ assist. In July dizziness began w/ chest pain. In September dizziness returned, with chest pain, was admitted here, had pulm HTN dxed, diagnosed w/ PE in [place]. This month dizziness returned, with chest pain 3 days ago. Family History: Unchanged from Admission Social History: Unchanged from Admission Past Medical History: Unchanged from Admission Objective Active Medications: Acetaminophen (Tylenol Tab*) 650 mg PO Q4H PRN PRN Reason: MILD PAIN or TEMP > 100.4 Last Admin: 11/22/18 14:02 Dose: 650 mg Albuterol (Ventolin Hfa Inhaler*) 2 puff INH Q6HR PRN PRN Reason: SHORTNESS OF BREATH Allopurinol (Zyloprim Tab*) 200 mg PO BID [facility] Last Admin: 11/23/18 09:29 Dose: 200 mg Aripiprazole (Abilify Tab*) 5 mg PO BEDTIME [facility] Last Admin: 11/22/18 21:07 Dose: 5 mg Aspirin (Aspirin 81 Mg Chew Tab*) 81 mg PO DAILY [facility] Last Admin: 11/23/18 09:29 Dose: 81 mg Bupropion HCl (Bupropion Xl*) 300 mg PO DAILY [facility] Last Admin: 11/23/18 09:29 Dose: 300 mg Carvedilol (Coreg Tab*) 3.125 mg PO BID [facility] Last Admin: 11/23/18 09:29 Dose: 3.125 mg Cetirizine HCl (Zyrtec*) 10 mg PO BEDTIME [facility] Last Admin: 11/22/18 21:07 Dose: 10 mg Dextrose (Dextrose 50% Vial 50 Ml*) 25 ml IV PUSH .FOR FS < 60 - SS PRN PRN Reason: FS < 60 Insulin Glargine (Lantus(*)) 60 units SUBCUT BID [facility] Last Admin: 11/23/18 09:29 Dose: 60 units Insulin Human Lispro (Humalog*) 0 units SUBCUT ACHS [facility]; Protocol Last Admin: 11/23/18 12:07 Dose: 6 units Meclizine HCl (Antivert Tab*) 25 mg PO Q8HR PRN PRN Reason: DIZZINESS Mirtazapine (Remeron Tab*) 15 mg PO BEDTIME [facility] Last Admin: 11/22/18 21:07 Dose: 15 mg Mometasone Furoate/Formoterol Fumar (Dulera 200/5 Mdi*) 2 puff INH BID [facility]; Protocol Last Admin: 11/23/18 08:05 Dose: 2 puff Neomycin/Polymyxin/Bacitracin (Neosporin Top Oint Tube*) 1 applic TOPICAL DAILY [facility] Last Admin: 11/23/18 09:31 Dose: 1 applic Pto: [Ambrisentan] 5 (Mg) 5 mg PO DAILY [facility] Last Admin: 11/23/18 09:30 Dose: 5 mg Rivaroxaban (Xarelto(*)) 20 mg PO DAILY WITH MEAL [facility] Last Admin: 11/23/18 09:29 Dose: 20 mg Spironolactone (Aldactone Tab*) 50 mg PO DAILY [facility] Last Admin: 11/23/18 09:29 Dose: 50 mg Tadalafil (Adcirca (Nf)) 40 mg PO DAILY [facility]; Protocol Last Admin: 11/23/18 09:31 Dose: 40 mg Vital Signs - 8 hr 11/23/18 11/23/18 11/23/18 08:00 08:05 08:43 Temperature 36.6 C Pulse Rate 76 71 Respiratory 16 16 20 Rate Blood Pressure 112/75 (mmHg) O2 Sat by Pulse 91 98 Oximetry 11/23/18 12:01 Temperature 36.7 C Pulse Rate 71 Respiratory 20 Rate Blood Pressure 134/68 (mmHg) O2 Sat by Pulse 100 Oximetry Oxygen Devices in Use Now: Nasal Cannula Appearance: sleeping w/ BiPAP, no distress, aroused easily Ears/Nose/Mouth/Throat: Clear Oropharnyx Neck: No Thyroid Enlargement, Masses Cardiovascular: NL Sounds; No Murmurs; No JVD Abdominal: NL Sounds; No Tenderness; No Distention, - - massively obese Neurological: Alert and Oriented x 3, - - no nystagmis Lines/Tubes/Other Access: Clean, Dry and Intact Peripheral IV Nutrition: Taking PO's Result Diagrams: 11/22/18 06:49 11/22/18 06:49 Additional Lab and Data: Laboratory Tests 11/22/18 11/22/18 11/22/18 11:13 16:01 20:32 POC Glucose (mg/dL) 226 H 147 H 185 H 11/23/18 11/23/18 08:19 11:06 POC Glucose (mg/dL) 130 H 209 H Diagnostic Imaging: head/neck MRA, MRI normal Assess/Plan/Problems-Billing Assessment: Mr Urbina is a 43yo M with PMH of supermorbid obesity with BMI 61, severe pulmonary HTN, presumed PE, gout, NILES on CPAP, type 2 DM, anxiety, who was transferred from our Facility to [facility] in September 2018 for pulmonary HTN w/u; who returns to our ED with c/o dizziness. - Patient Problems (1) Dizziness Current Visit: Yes Status: Chronic Priority: High Code(s): R42 - DIZZINESS AND GIDDINESS SNOMED Code(s): 278621751 Comment: - D/w Dr Villarreal - differential includes medication side effect, recurrent PE (on anticoagulation) vs increased intracranial pressure. - He states no medication has given him any relief from his dizziness. (2) Type 2 diabetes mellitus Current Visit: Yes Status: Chronic Priority: Medium Comment: - under reasonable control - Continue Lantus and Lispro SS. (3) Gout Current Visit: Yes Status: Acute Priority: Medium Code(s): M10.9 - GOUT, UNSPECIFIED SNOMED Code(s): 87332140 Comment: -Will check uric acid and consider cutting down allopurinol. (4) Depression Current Visit: No Status: Chronic Priority: Medium Code(s): F32.9 - MAJOR DEPRESSIVE DISORDER, SINGLE EPISODE, UNSPECIFIED SNOMED Code(s): 76607338 Comment: - continue wellbutrin, abilify, mirtazipine - these could all cause dizziness, will consider trial of stopping one at a time (5) Pulmonary embolism Current Visit: Yes Status: Acute Code(s): I26.99 - OTHER PULMONARY EMBOLISM WITHOUT ACUTE COR PULMONALE SNOMED Code(s): 79817710 Comment: - Continue Xarelto. - V/Q scan ordered Status and Disposition: Inpatient.
--- NOTE | 2018-11-23 15:35 | CONS ---
NEUROLOGY CONSULT FOLLOWUP: DATE OF FOLLOWUP: 11/23/18 LOCATION: He is an inpatient, room 441. HOSPITALIST: Dr. Orozco. CHIEF COMPLAINT: Dizziness. INTERVAL HISTORY: Since yesterday, Trae said that he had some headache that went away with some Tylenol. He does not have a headache today. He says his dizziness is a little bit better and rates it as a 6/10. He was sleeping with a CPAP machine when I entered his room. MEDICATIONS: Reviewed and he remains on: 1. Aspirin 81 mg p.o. every day. 2. Allopurinol 200 mg p.o. b.i.d. 3. Abilify 5 mg p.o. every day. 4. Bupropion XL 300 mg p.o. every day. 5. Coreg 3.125 mg p.o. b.i.d. 6. Sliding scale insulin. 7. Remeron 15 mg p.o. at bedtime. 8. Xarelto 20 mg p.o. every day. 9. Spironolactone 50 mg p.o. every day. 10. Tadalafil 40 mg p.o. every day. PHYSICAL EXAMINATION: On exam, he remains morbidly obese. Temperature 97.9, blood pressure 112/75, heart rate about 70, respiratory rate is 20, and oxygen saturation is 98% on room air. Neurological Exam: Pupils and eye movements are normal. There is no nystagmus. Funduscopic exam reveals fairly sharp looking optic discs bilaterally. Speech is clear. There is no dysarthria. There is no tremor. IMPRESSION: Impression is that of subjective dizziness without abnormal findings on exam. He has had normal MRI imaging of the brain a couple of times in the last 2 months. I do not think his symptoms are cerebrovascular. I do not think he presents with a peripheral vestibular disorder either. Perhaps, he is having drug side effects from one of his many medications. I had considered doing a lumbar puncture and also I have considered starting acetazolamide empirically because of his pulmonary hypertension and possible increased intracranial pressure, but he really does not have any abnormalities on his exam including funduscopic exam. Also, I am very reluctant to recommend stopping his anticoagulant for lumbar puncture. I would recommend considering tapering some of his medications. I would start with a psychotropic medication such as Abilify and then possibly bupropion taper over time. Remeron could also be tapered eventually. I do not have any other recommendations at this point in time. [id number]/[facility] #: [id number] [facility] CENTERRoxane
[2018-11-23 16:14] LABS: Uric Acid 5.3 mg/dL (4.4-7.6)
[2018-11-23] MEDS: ARIPiprazole TAB* 5 MG PO SCH (20:04)
[2018-11-23] MEDS: Cetirizine* 10 MG TAB PO SCH (20:04)
[2018-11-23] MEDS: Mirtazapine TAB* 15 MG PO SCH (20:04)
[2018-11-24] MEDS: Insulin LISPRO* 1 UNITS UNIT SUBCUT SCH ×4 (07:17→20:47)
[2018-11-24] MEDS: Mometasone/Formoter 200/5 MDI INH SCH ×2 (07:28→19:53)
--- NOTE | 2018-11-24 10:13 | PN ---
Subjective Date of Service: 11/24/18 Interval History: Patient seen and examined at bedside. Observed patient ambulating in halls with PT. Reports he started off at 5 or 6 with dizziness, by the time he made it around the hallway, it went up to a 10. His sister in law reports that Trae had previously stated he slept better with O2 hooked up to CPAP. Dizziness was also improved with O2 use. Denies fever /chills, CP, palpitations, SOB. Family History: Unchanged from Admission Social History: Unchanged from Admission Past Medical History: Unchanged from Admission Objective Active Medications: Acetaminophen (Tylenol Tab*) 650 mg PO Q4H PRN PRN Reason: MILD PAIN or TEMP > 100.4 Last Admin: 11/22/18 14:02 Dose: 650 mg Albuterol (Ventolin Hfa Inhaler*) 2 puff INH Q6HR PRN PRN Reason: SHORTNESS OF BREATH Allopurinol (Zyloprim Tab*) 200 mg PO BID [facility] Last Admin: 11/23/18 20:04 Dose: 200 mg Aripiprazole (Abilify Tab*) 5 mg PO BEDTIME [facility] Last Admin: 11/23/18 20:04 Dose: 5 mg Aspirin (Aspirin 81 Mg Chew Tab*) 81 mg PO DAILY [facility] Last Admin: 11/23/18 09:29 Dose: 81 mg Bupropion HCl (Bupropion Xl*) 300 mg PO DAILY [facility] Last Admin: 11/23/18 09:29 Dose: 300 mg Carvedilol (Coreg Tab*) 3.125 mg PO BID [facility] Last Admin: 11/23/18 20:04 Dose: 3.125 mg Cetirizine HCl (Zyrtec*) 10 mg PO BEDTIME [facility] Last Admin: 11/23/18 20:04 Dose: 10 mg Dextrose (Dextrose 50% Vial 50 Ml*) 25 ml IV PUSH .FOR FS < 60 - SS PRN PRN Reason: FS < 60 Insulin Glargine (Lantus(*)) 60 units SUBCUT BID [facility] Last Admin: 11/23/18 20:55 Dose: 60 units Insulin Human Lispro (Humalog*) 0 units SUBCUT ACHS [facility]; Protocol Last Admin: 11/24/18 07:17 Dose: Not Given Meclizine HCl (Antivert Tab*) 25 mg PO Q8HR PRN PRN Reason: DIZZINESS Mirtazapine (Remeron Tab*) 15 mg PO BEDTIME [facility] Last Admin: 11/23/18 20:04 Dose: 15 mg Mometasone Furoate/Formoterol Fumar (Dulera 200/5 Mdi*) 2 puff INH BID [facility]; Protocol Last Admin: 11/24/18 07:28 Dose: Not Given Neomycin/Polymyxin/Bacitracin (Neosporin Top Oint Tube*) 1 applic TOPICAL DAILY [facility] Last Admin: 11/23/18 09:31 Dose: 1 applic Pto: [Ambrisentan] 5 (Mg) 5 mg PO DAILY [facility] Last Admin: 11/23/18 09:30 Dose: 5 mg Rivaroxaban (Xarelto(*)) 20 mg PO DAILY WITH MEAL [facility] Last Admin: 11/23/18 09:29 Dose: 20 mg Spironolactone (Aldactone Tab*) 50 mg PO DAILY [facility] Last Admin: 11/23/18 09:29 Dose: 50 mg Tadalafil (Adcirca (Nf)) 40 mg PO DAILY [facility]; Protocol Last Admin: 11/23/18 09:31 Dose: 40 mg Vital Signs - 8 hr 11/24/18 11/24/18 11/24/18 03:44 07:27 08:16 Temperature 98.3 F 96.9 F Pulse Rate 65 70 Respiratory 18 18 20 Rate Blood Pressure 120/65 125/62 (mmHg) O2 Sat by Pulse 97 97 Oximetry Oxygen Devices in Use Now: Nasal Cannula Appearance: Male patient, OOB to chair, texting on phone, NAD Eyes: No Scleral Icterus, PERRLA Ears/Nose/Mouth/Throat: Clear Oropharnyx, Mucous Membranes Moist Neck: NL Appearance and Movements; NL JVP, Trachea Midline Respiratory: Symmetrical Chest Expansion and Respiratory Effort, Clear to Auscultation - decreased, potentially 2/2 body habitus Cardiovascular: NL Sounds; No Murmurs; No JVD, RRR Abdominal: NL Sounds; No Tenderness; No Distention - obese Extremities: No Clubbing, Cyanosis Neurological: Alert and Oriented x 3 Lines/Tubes/Other Access: Clean, Dry and Intact Peripheral IV Nutrition: Taking PO's Result Diagrams: 11/22/18 06:49 11/22/18 06:49 Additional Lab and Data: Laboratory Tests 0911/22/18 11/22/18 11:13 16:01 20:32 POC Glucose (mg/dL) 226 H 147 H 185 H 11/23/18 11/23/18 08:19 11:06 POC Glucose (mg/dL) 130 H 209 H Diagnostic Imaging: head/neck MRA, MRI normal Transthoracic Echocardiogram Patient: Trae Urbina : 1975 Study Date: 11/22/2018 Age: 43 Gender: M HR: 80 bpm Height: 68 in /172.7 cm BSA: 2.74 m^2 Weight: 399.2 lb /181.4 kg BMI: 60.8 kg/m^2 *Supervisor Coating: * Belle Su RDCS *Referring Physician: * Linnea KimReading Physician: * Becki Finch MD Indications: CVA. Pulmonary Hypertension History: Pulmonary Embolism. Risk factors: Hypertension. Diabetes mellitus. Morbidly obese. Hyperlipidemia. Conclusions Summary: - Procedure narrative: Image quality was suboptimal, technically limited due to body habitus. - Left ventricle: The cavity size is normal. Wall thickness is moderately increased. Systolic function is hyperdynamic. The estimated ejection fraction is 70-75%. - Right ventricle: The cavity size is mildly to moderately dilated. Wall thickness is moderately increased. Systolic function is moderately reduced. - Ventricular septum: There is septal flattening of the interventricular septum consistent with RV volume or pressure overload. - Atrial septum: Poorly visualized. - Mitral valve: There is trace regurgitation. - Aortic valve: There is trace to mild regurgitation. - Tricuspid valve: There is mild-moderate regurgitation. - Pulmonary arteries: Systolic pressure is mildly increased. Pulmonary artery pressure may be underestimated The peak pressure during systole by Doppler is 40.0 mm Hg. - Compared with prior echocardiogram of 09/20/18, left ventricle function is stable, right ventricle dilatation and function not significantly changed, valve function is stable, pulmonary artery pressure previously estimated at 54 mmHg. Recommendations: Study quality suboptimal to rule out cardioembolic etiologies. If clinically indicated consider transesophageal echocardiogram to evaluate possible cardioembolic etiologies for cerebrovascular accident. Study data: Transthoracic echocardiogram. Procedure: Transthoracic echocardiography was performed. Image quality was suboptimal. The study was technically limited due to body habitus. Intravenous Definity , 4 mlswas administered. A bubble study was performed. Complete 2D, spectral Doppler, and color flow Doppler. Location: Bedside. Patient status: Inpatient. Patient room number: 441-1. Rhythm: Normal sinus rhythm. Findings Left ventricle: The cavity size is normal. Wall thickness is moderately increased. Systolic function is hyperdynamic. The estimated ejection fraction is 70-75%. Wall motion is normal; there are no regional wall motion abnormalities. There is no consistent Doppler evidence of clinically significant diastolic dysfunction. Right ventricle: The cavity size is mildly to moderately dilated. Wall thickness is moderately increased. Systolic function is moderately reduced. Systolic pressure is mildly to moderately increased. Ventricular septum: There is septal flattening of the interventricular septum consistent with RV volume or pressure overload. Left atrium: The atrium is mildly to moderately dilated. Right atrium: The atrium is moderately dilated. Atrial septum: Poorly visualized. A shunt cannot be excluded. Bubble study images 86 and 87. Mitral valve: The leaflets are normal thickness. There is no evidence of stenosis. There is trace regurgitation. Aortic valve: The leaflets are mildly thickened. There is no evidence of stenosis. There is trace to mild regurgitation. Tricuspid valve: The leaflets are normal thickness. There is no evidence of stenosis. There is mild-moderate regurgitation. Pulmonic valve: Poorly visualized. The leaflets are normal thickness. There is no evidence of stenosis. There is mild regurgitation. Aorta: Aortic root: The aortic root is appears normal. Ascending aorta: The ascending aorta is appears normal. Aortic arch: The aortic arch is appears normal. Pericardium: A prominent pericardial fat pad is present. There is no significant pericardial effusion. Pulmonary arteries: The main pulmonary artery is dilated. Systolic pressure is mildly increased. Pulmonary artery pressure may be underestimated Systemic veins: Inferior vena cava: The vessel is normal in size. There is (>= 50%) respiratory change in the IVC dimension. Measurements Left ventricle Value Ref Aortic valve Value Ref RADHA, LAX 4.3 cm 4.2 - 5.8 Miah diam, ED 2.3 cm ----- ESD, LAX 3.2 cm 2.5 - 4.0 Peak v, S 2.18 m/ sec ----- FS, LAX 27 % 25 - 43 VTI, S 38.4 cm ----- PW, ED, LAX (H) 1.4 cm 0.6 - 1.0 Mean grad, S 10.0 mm Hg ----- FS 27 % 25 - 43 Peak grad, S 19.0 mm Hg ----- PW, ED (H) 1.4 cm 0.6 - 1.0 LVOT/AV, VTI ratio 0.91 ----- E', lat miah, TDI 13.8 cm/sec >=10.0 E/e', lat miah, 6 Mitral valve Value Ref TDI Peak E 0.86 m/ sec ----- E', med miah, TDI 7.4 cm/sec >=7.0 Peak A 0.63 m/sec ----- E/e', med miah, 12 Decel time 204 ms ----- TDI Peak grad, D 2.9 mm Hg ----- E', avg, TDI 10.6 cm/sec Peak E/A ratio 1.4 ----- E/e', avg, TDI 8 <=14 Pulmonic valve Value Ref LVOT Value Ref Peak v, S 1.32 m/ sec ----- Peak arlene, S 1.72 m/sec Peak grad, S 7.0 mm Hg ----- VTI, S 35.0 cm AL v, ED 1.81 m/ sec ----- Peak grad, S 12 mm Hg AL grad, ED 13 mm Hg ----- Mean grad, S 7 mm Hg Tricuspid valve Value Ref Ventricular septum Value Ref TR peak v (H) 3.2 m/ sec <=2.8 IVS, ED (H) 1.3 cm 0.6 - 1.0 Peak RV-RA grad, S 41 mm Hg ----- Right ventricle Value Ref Aortic root Value Ref AW thickness, ED (H) 1.1 cm 0.1 - 0.5 Root diam 3.0 cm <4.7 RADHA, LAX 3.1 cm RADHA minor ax, A4C (H) 4.7 cm 1.9 - 3.5 Ascending aorta Value Ref mid AAo AP diam, S 3.4 cm ----- Pressure, S 44 mm Hg Aortic arch Value Ref Left atrium Value Ref Arch diam 2.2 cm ----- AP dim, ES 3.20 cm 3.00 - 4.00 Decending aorta Value Ref ML dim, A4C 4.7 cm Chauncey peak arlene 1.12 m/ sec ----- SI dim, A4C 6.4 cm Vol/bsa, ES, 1-p (H) 39 ml/m^2 12 - 37 Pulmonary artery Value Ref A4C Pressure, S 40.0 mm Hg ----- Vol/bsa, ES, A/L (H) 40 ml/m^2 16 - 34 Inferior vena cava Value Ref Right atrium Value Ref Diam 1.6 cm ----- SI dim, ES (H) 6.2 cm 3.4 - 5.3 ML dim, ES, A4C 4.1 cm 2.6 - 4.4 SI dim, ES, A4C (H) 6.2 cm 3.4 - 5.3 Estimated RAP 3 mm Hg Legend: (L) and (H) deb values outside specified reference range. Prepared and electronically signed by Becki Finch MD 11/22/2018 21:57 Assess/Plan/Problems-Billing Assessment: Mr Urbina is a 43yo M with PMH of supermorbid obesity with BMI 61, severe pulmonary HTN, presumed PE, gout, NILES on CPAP, type 2 DM, anxiety, who was transferred from our Facility to [facility] in September 2018 for pulmonary HTN w/u; who returns to our ED with c/o dizziness. - Patient Problems (1) Dizziness Code(s): R42 - DIZZINESS AND GIDDINESS Comment: - Negative orthostatics, CT head negative for venous thrombosis - MRI brain, MRA head/neck normal - Dizziness has been present since previous admission in September and has not improved. - Appreciate neuro consult - per notes, differential includes medication side effect, recurrent PE (on anticoagulation) vs increased intracranial pressure. - Pt states no medication has given him any relief from his dizziness. - Message left for Dr. Nielsen today to review echocardiogram and VQ scan results. (2) Pulmonary hypertension Code(s): I27.20 - PULMONARY HYPERTENSION, UNSPECIFIED Comment: - VQ scan today shows unmatched subsegmental defect of the right mid lung laterally; low probablity VQ. - TTE continues to show severe pulmonary HTN. Report faxed to [facility]. - [place] [facility] [place]. - Records from [facility] shows V/Q with possible sequela of PE in the right lung; LE doppler was negative for DVT; right heart cath showed elevated right and borderline mildly elevated left heart filling pressures, normal left pulmonary artery anatomy and no evidence of central or primary branch pulmonary embolus of the right lung, with possible distal subbranch disease. Impression was of group 1 PAH with acute clot likely explaining his decompensation. Recommended treatment with Ambrisetam and Tadalafil. Torsemide and Aldactone were also added. - Per Dr Lopez's RN ([facility]) - headache is a common side effect with those meds. - Continue supplemental O2. (3) Hypoxia Code(s): R09.02 - HYPOXEMIA Comment: - D/w Dr Locke - qualifies for O2 with CPAP overnight. Will start 2 liters with CPAP. - Check daytime O2 sats at rest and with ambulation (4) Pulmonary embolism Code(s): I26.99 - OTHER PULMONARY EMBOLISM WITHOUT ACUTE COR PULMONALE Comment : - Continue Xarelto. - VQ scan today shows unmatched subsegmental defect of the right mid lung laterally; low probablity VQ. (5) Type 2 diabetes mellitus Comment: - Under reasonable control - Continue Lantus and Lispro SS. (6) Gout Code(s): M10.9 - GOUT, UNSPECIFIED Comment: - Uric acid 5.3, decrease allopurinol from 200 mg BID to 100 mg BID (7) Diabetic foot ulcer Code(s): E11.621 - TYPE 2 DIABETES MELLITUS WITH FOOT ULCER; L97.509 - NON- PRESSURE CHRONIC ULCER OTH PRT UNSP FOOT W UNSP SEVERITY Comment: - Right foot diabetic ulcer - no signs of active infection. - Continue daily dressing changes with antibiotic ointment and gauze. (8) Depression Code(s): F32.9 - MAJOR DEPRESSIVE DISORDER, SINGLE EPISODE, UNSPECIFIED Comment: - Continue wellbutrin, abilify, mirtazipine - These could all cause dizziness, consider trial of stopping one at a time (9) DVT prophylaxis Comment: - Xarelto. (10) Full code status Code(s): Z78.9 - OTHER SPECIFIED HEALTH STATUS Status and Disposition: Inpatient. Message left for [facility] to review VQ and echocardiogram results. Attending: David Orozco
[2018-11-24] MEDS: Carvedilol TAB* 3.125 MG PO SCH ×2 (10:26→20:45)
[2018-11-24] MEDS: Spironolactone TAB* 25 MG PO SCH (10:26)
[2018-11-24] MEDS: Rivaroxaban TAB(*) 20 MG TAB PO SCH (10:26)
[2018-11-24] MEDS: BuPROPion XL* 300 MG TAB.XL PO SCH (10:26)
[2018-11-24] MEDS: Allopurinol TAB* 100 MG PO SCH ×2 (10:27→20:45)
[2018-11-24] MEDS: Aspirin 81 mg CHEW TAB* 81 MG TAB.CHEW PO SCH (10:27)
[2018-11-24] MEDS: AMBRISENTAN 5 MG PO SCH (10:27)
[2018-11-24] MEDS: TADALAFIL 20 MG PO SCH (10:27)
[2018-11-24] MEDS: Insulin GLARGINE(*) 1 UNITS UNIT SUBCUT SCH ×2 (10:28→20:45)
[2018-11-24] MEDS: Neomycin/Polym/Bacit TOP OINT* 15 GM TOPICAL SCH ×2 (11:56→14:11)
[2018-11-24] MEDS: ARIPiprazole TAB* 5 MG PO SCH (20:45)
[2018-11-24] MEDS: Mirtazapine TAB* 15 MG PO SCH (20:45)
[2018-11-24] MEDS: Cetirizine* 10 MG TAB PO SCH (20:45)
[2018-11-25] MEDS: Insulin LISPRO* 1 UNITS UNIT SUBCUT SCH ×2 (07:43→12:26)
[2018-11-25] MEDS: AMBRISENTAN 5 MG PO SCH (09:26)
[2018-11-25] MEDS: Carvedilol TAB* 3.125 MG PO SCH (09:26)
[2018-11-25] MEDS: TADALAFIL 20 MG PO SCH (09:26)
[2018-11-25] MEDS: Allopurinol TAB* 100 MG PO SCH (09:27)
[2018-11-25] MEDS: Aspirin 81 mg CHEW TAB* 81 MG TAB.CHEW PO SCH (09:27)
[2018-11-25] MEDS: Rivaroxaban TAB(*) 20 MG TAB PO SCH (09:27)
[2018-11-25] MEDS: BuPROPion XL* 300 MG TAB.XL PO SCH (09:27)
[2018-11-25] MEDS: Insulin GLARGINE(*) 1 UNITS UNIT SUBCUT SCH (09:28)
[2018-11-25] MEDS: Spironolactone TAB* 25 MG PO SCH (09:28)
[2018-11-25] MEDS: Mometasone/Formoter 200/5 MDI INH SCH (09:41)
[2018-11-25 12:26] VITALS: BP 106/58
[2018-11-25] MEDS: Neomycin/Polym/Bacit TOP OINT* 15 GM TOPICAL SCH (13:52)
--- NOTE | 2018-11-25 22:43 | DS ---
CC: Dr. Oliveros; Dr. Locke; Dr. Villarreal * DISCHARGE SUMMARY: DATE OF ADMISSION: 11/20/18 DATE OF DISCHARGE: 11/25/18 PROVIDER: PHYLLIS Marie ATTENDING PHYSICIAN WHILE IN THE HOSPITAL: Dr. David Orozco * (dictated by PHYLLIS Marie). PRIMARY CARE PROVIDER: Dr. Oliveros. CONSULTING WORKERS COMPENSATION ATTORNEY: Dr. Locke. CONSULTING NEUROLOGIST: Dr. Villarreal. CONSULTING CHAIRMAN PRESIDENT AND CHIEF EXECUTIVE OFFICER: Belle Acosta NP PRIMARY DIAGNOSIS: Dizziness of unclear etiology, improving. SECONDARY DIAGNOSES: 1. Pulmonary embolism, currently on Xarelto. 2. Pulmonary hypertension, found in October of 2018 at [facility] via cardiac catheterization. 3. Gout. 4. Sleep apnea, on CPAP at night. 5. Diabetes mellitus, type 2. 6. Panic disorder. 7. Morbid obesity. STUDIES WHILE IN THE HOSPITAL: Chest/thorax CTA: No visible acute pulmonary embolism, but limited evaluation of the subsegmental branches of the pulmonary arteries because of respiratory motion artifact. Stable upper abdominal lymph node last seen near celiac access, that was on 11/20/18. Head CTA on 11/20/18, no visible venous thrombosis. Brain MRI on 11/22/18, unremarkable MRI of the brain. No restricted diffusion to suggest acute infarct. MRI of the head and neck on 11/22/18, no aneurysm, vascular malformation, occlusion, stenosis of the visualized intracranial circulation. Lung V/Q scan on 11/24/18, low probability. HISTORY OF PRESENT ILLNESS/HOSPITAL COURSE: Mr. Urbina is a 43-year-old white male with past medical history significant for NILES, on CPAP; pulmonary hypertension, and recent pulmonary embolism, on Xarelto, who presented to emergency department 11/20/18 due to dizziness. Please see admitting history and physical written by Billie Alvarez NP for further information. Ultimately, during the patient's hospital stay, his dizziness was not resolved by any medications. Neurology was involved and did not believe his symptoms were representing a TIA, plus imaging ruled out a CVA. The patient's mineral surveyor in the [facility], Dr. Nielsen was contacted by multiple providers and echocardiogram results were discussed with him. He felt that the patient should follow up with him in 1 to 2 weeks. He did not believe that the echocardiogram findings were was contributing to his dizziness. Dr. Locke recommended an overnight pulse oximetry to evaluate his sleep hypoxia. The patient did have sleep hypoxia for approximately 4 continuous minutes despite concurrent use of his CPAP. On the night prior to discharge, the patient had 2 L of oxygen hooked up to his CPAP and on the day of discharge, the patient's dizziness was far improved. He was able to maintain good oxygen saturations on 2 L while resting and on 4 L while ambulating. The patient's dizziness is still persistent, but far improved. On medication review, his Abilify, Remeron, and Wellbutrin all had adverse side effects of dizziness and the patient understands that this may take long-term adjustment of medications to evaluate the true cause of his dizziness. The patient's [id number]-jqd, who is also his home health aide, was available at the time of discharge for discharge planning. The patient's oxygen concentrator was already delivered to his house by the time of discharge. PHYSICAL EXAM ON THE DAY OF DISCHARGE: General: Morbidly obese white male sitting in chair, appearing older than stated age, appearing in no acute distress. Eyes: PERRL. Sclerae anicteric. ENT: Mucous membranes moist. Neck : Supple. Lungs: Clear to auscultation throughout. Cardio: Regular rate and rhythm without murmurs, rubs or gallops. Abdomen: Soft, nontender, and nondistended. Extremities: No clubbing, cyanosis, or edema. Neuro: The patient is alert and oriented x3. No focal deficits. Able to move all extremities. Skin: Warm and dry. DISCHARGE PLAN: Diet: Carbohydrate consistent diet. Activity: The patient may return to normal activity as tolerated with 2 L of oxygen at rest and 4 L of oxygen with exertion. The patient is advised to follow up with his lard maker or at the [facility] regarding his chronic ulcer on his right foot. Advised daily foot checks. The patient is to follow up with his mineral surveyor, Dr. Nielsen in 1 to 2 weeks. He is advised to follow up with his primary care provider within a week as well and he is additionally advised to follow up at the mental health clinic at [facility] for adjustment of his psychiatric medications as his medications may be contributing to his dizziness. The patient will be using 2 L of oxygen while at rest, 4 L oxygen with exertion, and 2 L of oxygen via his CPAP while asleep. The patient has a walker at home and is advised to use it if he is experiencing dizziness for stability. DISCHARGE MEDICATIONS: New medications: 1. Meclizine 25 mg p.o. q.8 hours p.r.n. dizziness. Adjusted home medications: 2. Allopurinol 100 mg p.o. b.i.d. Continued home medications: 1. Aspirin 81 mg p.o. daily. 2. Tetrahydrozoline eye drops 1 drop both eyes daily p.r.n. dry eye. 3. Insulin glargine 16 units subcu b.i.d. 4. Torsemide 10 mg p.o. daily. 5. Tadalafil 20 mg p.o. b.i.d. 6. Spironolactone 25 mg p.o. daily. 7. Xarelto 20 mg p.o. daily. 8. Nystatin powder 1 application topical b.i.d. 9. Mirtazapine 15 mg p.o. at bedtime. 10. Loratadine 10 mg p.o. daily. 11. Epinephrine 0.3 mg IM once p.r.n. allergy symptoms. 12. Carvedilol 3.125 mg p.o. b.i.d. 13. Wellbutrin 150 mg p.o. daily. 14. Wellbutrin 300 mg p.o. daily. 15. Symbicort 2 puffs inhaled b.i.d. 16. Abilify 5 mg p.o. daily. 17. Ambrisentan 5 mg p.o. daily. 18. Ventolin inhaler 1 to 2 puffs inhaled q.6 hours p.r.n. shortness of breath/ wheezing. CONDITION ON DISCHARGE: Improved. DISPOSITION: Home. TIME SPENT: Approximately 40 minutes was spent on this discharge, approximately half of this time was spent at bedside evaluating the patient and discussing the plan of care. PHYLLIS MARIE [id number]/[facility] #: [id number] [facility] HOSPITALRoxane
== END 2018-11-25 15:45 | disposition home or self-care (01) | DRG 149 ==
LOC: ED 11:16 → MEDTELE 17:45 → OBSVTOIN 11-21 11:46
PROVIDERS: ADMIT Internal Medicine; ATTEND Internal Medicine
DX: R42 Dizziness and giddiness (principal); Z68.44 Body mass index [BMI] 60.0-69.9, adult; M10.9 Gout, unspecified; I27.20 Pulmonary hypertension, unspecified; F41.0 Panic disorder [episodic paroxysmal anxiety]; E66.01 Morbid (severe) obesity due to excess calories; R09.02 Hypoxemia; I10 Essential (primary) hypertension; F32.9 Major depressive disorder, single episode, unspecified; J45.909 Unspecified asthma, uncomplicated; E11.621 Type 2 diabetes mellitus with foot ulcer; L97.519 Non-pressure chronic ulcer of other part of right foot with unspecified severity; G47.33 Obstructive sleep apnea (adult) (pediatric); Z79.82 Long term (current) use of aspirin; Z79.4 Long term (current) use of insulin; Z79.01 Long term (current) use of anticoagulants; Z88.8 Allergy status to other drugs, medicaments and biological substances; Z86.711 Personal history of pulmonary embolism; Z88.6 Allergy status to analgesic agent; Z91.030 Bee allergy status; Z82.49 Family history of ischemic heart disease and other diseases of the circulatory system; Z83.3 Family history of diabetes mellitus; Z80.8 Family history of malignant neoplasm of other organs or systems; Z91.5 Personal history of self-harm; Z56.0 Unemployment, unspecified; Z72.89 Other problems related to lifestyle
CPT/HCPCS: 36415; 70450; 70496; 70544; 70547; 70551; 71046; 71275; 78582; 80048; 80053; 80061; 81003; 81015; 82803; 83605; 83735; 83880; 84443; 84484; 84550; 85025; 85610; 86140; 87086; 93005; 93306; 94640; 94762; 96360; 96361; 96372; 96374; 99284; 99285; A9270-GY; A9540; A9558; C8929; G0378; G8978-GP-CK; G8979-GP-CI; J1200; Q9967

== ENCOUNTER 2018-12-02 22:07 | Emergency (ER) | payer MEDICARE ==
--- OUTSIDE RECORDS SUMMARY | 2018-12-02 22:19 | XMS REPORT | Summary of Care ---
:1975 Author Organization [facility] Address [address] [facility] [place] [address] Care Team Providers Name Role Phone Lilli Chen RN Unavailable Chong Oliveros Primary Care Provider Reason for Referral Durable Medical Equipment (Routine) Status Reason Specialty Diagnoses / Referred By Referred To Procedures Contact Contact Pending Review Diagnoses Pulmonary hypertension (HCC) Jhoan Zepeda MD [address] [place] [address] Reason for Visit Reason Comments Follow Up Pt. in for a Hospital follow up. Reports doing Better. Encounter Details Date Type Department Care Team Description 11/27/2018 Office Visit [facility] Zepeda Pulmonary hypertension ( HCC) (Primary Dx); Cardiology MD Jhoan Chronic right-sided heart failure (HCC); [address] Other pulmonary embolism without acute cor pulmonale, unspecified chronicity ( HCC); [place] [address] Morbid obesity (HCC) [phone] Allergies Active Allergy Reactions Severity Noted Date Comments Bee Sting Respiratory Reaction 09/19/2013 SOB, throat tightness Glipizide Other 09/20/2007 Burning pain in chest Aspartame-Ibuprofen Other 10/02/2011 Mucinex Hives 03/02/2018 [facility] Other 10/02/2011 documented as of this encounter (statuses as of 11/28/2018) Medications Medication Sig Dispensed Refills Start Date [...] QD, Reported on 07/27/2017 2:01 PM Nystatin 361601 UNIT/GM 1 g by Apply externally 1 [...] - E11.9, Reported on 01/02/2018 1:51 PM EPINEPHrine (EPIPEN 1 Device by 2 Each 0 08/24/2017 Active 2-STU) 0.3 MG/0.3ML Injection route Injection Solution DIRECTED. As Auto-injector directed for bee sting Blood Glucose Monitor 1 Device by Does 1 Device 0 08/25/2017 Active Software Does not not apply route apply Device DIRECTED. Insurance preferred. E11.9 albuterol HFA Take 2 Puffs by 1 Inhaler 0 06/09/2018 Active (VENTOLIN) 108 (90 inhalation EVERY Base) MCG/ACT FOUR HOURS Inhalation Aero Soln NEEDED (1-2 puffs every four hours as needed). allopurinol TAKE TWO TABLETS 120 Tab 0 08/05/2018 Active (ZYLOPRIM) 100 MG BY MOUTH TWICE A Oral Tab DAY carvedilol (COREG) Take 1 Tab by 180 Tab 3 10/24/2018 Active 3.125 MG Oral Tab mouth TWICE DAILY. BUPROPION HCL ER, SR, Take 150 mg by 0 Active PO mouth. rivaroxaban (XARELTO) Take by mouth. 0 Active 20 MG Oral Tab Spironolactone 50 MG Take by mouth. 0 Active Oral Tab Tadalafil 20 MG Oral Take by mouth. 0 Active Tab torsemide (DEMADEX) Take 10 mg by 0 Active 10 MG Oral Tab mouth DAILY. budesonide-formoterol Take 2 INHL by 0 Active fumarate (SYMBICORT) inhalation TWICE 160-4.5 MCG/ACT DAILY. Inhalation Aerosol ONE TOUCH ULTRA TEST USE TO TEST TWICE 100 Strip 5 11/13/2018 Active STRIPS In Vitro Strip DAILY DIRECTED Lancets Does not TWICE DAILY. 100 Each 5 11/15/2018 Active apply Misc E11.9 BD ULTRA-FINE PEN USE TO INJECT 100 Each 0 11/27/2018 Active NEEDLES 29G X 12.7MM TWICE DAILY Does not apply Misc DIRECTED Ambrisentan 5 MG Oral Take 5 mg by 0 Active Tab mouth DAILY. Aspirin 81 MG Oral Take 81 mg by 0 11/27/ Discontinued Tab mouth DAILY. 2018 (Provider Discontinued) Insulin Lispro Inject 5 Units 5 Device 5 11/09/2018 Discontinued (HUMALOG KWIKPEN) 100 beneath the skin 2019 UNIT/ML Subcutaneous THREE TIMES Solution Pen-injector DAILY. Plus sliding scale documented as of this encounter (statuses as of 11/28/2018) Active Problems Problem Noted Date Pulmonary arterial hypertension 11/28/2018 Depression 03/10/2012 BMI 70 and over, adult 08/28/2010 Gout 12/04/2007 Morbid obesity 04/28/2007 Type 2 diabetes mellitus with complication 04/28/2007 Hypertension 04/28/2007 Asthma 04/28/2007 Allergic Rhinitis 04/28/2007 Sleep apnea Overview: bipap documented as of this encounter (statuses as of 11/28/2018) Resolved Problems Problem Noted Date Resolved Date Wrist fracture 10/02/2011 Overview: R, open reduction and fixation documented as of this encounter (statuses as of 11/28/2018) Immunizations Name Administration Dates Next Due Influenza [...] Sign Reading Time Taken Comments Blood Pressure 110/78 11/27/2018 4:06 PM EDT Pulse 66 11/27/2018 4:06 PM EDT Temperature - - Respiratory Rate - - Oxygen Saturation 96% 11/27/2018 4:06 PM EDT Inhaled Oxygen Concentration - - Weight 179.6 kg (396 lb) 11/27/2018 4:06 PM EDT Height 172.7 cm (5' 8") 11/27/2018 4:06 PM EDT Body Mass Index 60.21 11/27/2018 4:06 PM EDT documented in this encounter Patient Instructions Patient InstructionsMcJhoan Cruz MD - 11/27/2018 4:00 PM EDT STOP taking aspirin. No other medication changes today. Continue to work on weight loss with smaller portions as we discussed. Follow through with your appointment with Dr. Lopez in November. Follow up with me in 2-3 months or sooner if needed. documented in this encounter Progress Notes Jhoan Zepeda MD - 11/27/2018 4:00 PM EDT [facility] Patient: Trae Urbina Date of : 1975 Date of Service: 11/27/2018 REFERRING PRACTITIONER: Immanuel PRIMARY CARE PROVIDER: Chong Oliveros Chief Complaint: Chief Complaint Patient presents with Follow Up Pt. in for a Hospital follow up. Reports doing Better. History of Present Illness: We had the pleasure of seeing Trae Urbina today at the [facility] Cardiology Office. He is a 43-y.o. male with morbid obesity, DM2, depression, HTN, asthma, NILES on BiPap, PE, and severe Group 1 +/- Group [address] Lopez at [facility]. Mr. Urbina returns to cardiology clinic today for follow up after a recent hospitalization at [facility] and transfer to [facility] for severe PAH. He initially presented to [facility] with CP and ruled out for GA by serial troponins. He was seen by Dr. Finch and underwent a left and right heart cath which showed nonobstructive CAD and severe pulmonary HTN (results below). He was then transferred to [place] under Drs. Jason Lopez and Rosendo Nielsen, and he was started on tadalafil and ambrisentan along with spironolactone and torsemide. He had a repeat RHC as well as pulmonary angiography that showed possible distal PEs in the R lung. He was sent home with Xarelto in addition to his PAH meds. More recently he was admitted again to [facility] from 11/20 to 11/25 with dizziness; had chest CTA showing no clear PE, head CT, and brain MRI and was evaluated by neuro but they didn't feel that he had a TIA or other primary neurologic event. He also had a V/Q scan that was read as low probability. He had his O2 increased and felt significantly better after that. From a symptom standpoint now, he reports that he's had about 4 dizzy spells since his discharge from [place]. He says that he feels like he's going to "black out" and all of the episodes have occurred when he lifts something (has occurred with lifting groceries and most recently when lifting a couch). On the last episode he felt very lightheaded for a couple hours after moving the couch, and he had shaking chills (but no measured fever). Also felt weak. Hasn 't had any episodes since his most recent d/c from [facility]. His breathing is significantly better than when he first met me in mid September. He feels that using the O2 throughout the day and with his BiPap has helped him significantly. No syncope. No CP. No clear orthopnea and his LE has improved. Weight is down slightly by our scales since his september visit. Patient Active Problem List Diagnosis Morbid obesity ([facility]) Type 2 diabetes mellitus with complication ([facility]) Hypertension Asthma Allergic Rhinitis Sleep apnea Gout BMI 70 and over, adult ([facility]) Depression Pulmonary arterial hypertension ([facility]) Past Medical History: Diagnosis Date Allergic Rhinitis 04/28/2007 Asthma 04/28/[address] Donato Diabetes 04/28/2007 eye -04/2014, feet 03/13 Gout Hypertension 04/28/2007 Morbid obesity (HCC) 04/28/2007 Pulmonary arterial hypertension (HCC) 11/28/2018 Sleep apnea bipap 14/12 Wrist fracture R, open reduction and fixation No past surgical history on file. Allergies Allergen Reactions Bee Sting Respiratory Reaction SOB, throat tightness Glipizide Other Burning pain in chest Ibuprofen [Aspartame-Ibuprofen] Other Mucinex Hives [facility] Other Current Outpatient Medications Medication Sig albuterol HFA (VENTOLIN) 108 (90 Base) MCG/ACT Inhalation Aero Soln Take 2 Puffs by inhalation EVERY FOUR HOURS NEEDED (1-2 puffs every four hours as needed). allopurinol (ZYLOPRIM) 100 MG Oral Tab TAKE TWO TABLETS BY MOUTH TWICE A DAY Ambrisentan 5 MG Oral Tab Take 5 mg by mouth DAILY. aripiprazole (ABILIFY) 5 MG Oral Tab Take 5 mg by mouth EVERY BEDTIME. BD ULTRA-FINE PEN NEEDLES 29G X 12.7MM Does not apply Misc USE TO INJECT TWICE DAILY DIRECTED Blood Glucose Monitor Software Does not apply [...] Tab by mouth TWICE DAILY. EPINEPHrine (EPIPEN 2-STU) 0.3 MG/0.3ML Injection Solution [...] AM and 40 U PM - E11.9) HYDROXYPROPYL METHYLCELLULOSE (GENTEAL MILD TO MODERATE) 0.3 % Ophthalmic Solution Place 2 Drops to the external eye DAILY NEEDED (2 drops in both eyes ever 3 hours as needed). Lancets Does not apply Misc TWICE DAILY. E11.9 loratadine (CLARITIN,ALAVERT) 10 MG Oral Tab take 1 tablet by mouth once daily mirtazapine (REMERON) 15 MG Oral Tab Take 15 mg by mouth EVERY BEDTIME. Nystatin 187198 UNIT/GM Apply externally Powder 1 g by Apply externally route TWICE DAILY. ONE TOUCH ULTRA TEST STRIPS In Vitro Strip USE TO TEST TWICE DAILY DIRECTED rivaroxaban (XARELTO) 20 MG Oral Tab Take [...] file Gets together: Not on file Attends mandaen service: Not on file Active member of [...] file Social History Narrative Not on file Review of Systems - Negative except except as noted in HPI. Physical Exam: Vitals: 11/27/18 1606 BP: 110/78 BP Location: Right arm Patient Position: Sitting Pulse: 66 SpO2: 96% Weight: 396 lb (179.6 kg) Height: 5' 8" (1.727 m) Body mass index is 60.21 kg/m. General: Morbidly obese, alert 43-y.o. male wearing NC O2 in NAD HEENT: anicteric, MMM, no E/E [...] Labs: Lab Results Component Value Date NA 136 11/08/2018 K 4.4 11/08/2018 CL 100 11/08/2018 CO2 27 11/08/2018 GLUCOSE 153 (H) 11/08/2018 BUN 12 11/08/2018 CREATININE 0.8 11/08/2018 CALCIUM 9.4 11/08/2018 TP 6.9 10/12/2018 ALBUMIN 4.0 10/12/2018 AST 31 10/12/2018 ALT 18 (L) 10/12/2018 ALK 54 10/12/2018 TBILI 0.8 10/12/2018 EGFR >60 11/08/2018 Lab Results Component Value Date NT PRO BNP 313 (H) 11/08/2018 Lab Results Component Value Date CHOL 133 04/10/2018 TRIG 136 04/10/2018 HDL 21 (L) 04/10/2018 LDL 85 04/10/2018 LDLHDLRATIO 4.0 04/10/2018 CHOLHDLRATIO 6.3 04/10/2018 Cardiac Studies: TTE at [facility] 11/22/2018: -Normal LV cavity size with moderately increased wall thickness. -Hyperdynamic LV with LVEF 70-75% -Mild to mod RV enlargement with moderately reduced contractility. Septal flattening c/w RV pressure/volume overload -Mild-mod TR. No other significant valve abnormalities. -Est PASP 40 mmHg (likely underestimated). Right Heart Cath at [facility] 11/01/2018: RA 19 mmHg PAP 114/38 mmHg mPAP 66 mmHg PCWP 13 mmHg CI 2.08 L/min/m2 - Elevated right and borderline mildly elevated left heart filling pressures. - Severe pulmonary hypertension. - Moderately depressed cardiac index. - Pulmonary angiography of somewhat limited quality due to body habitus. Normal left pulmonary artery anatomy. No evidence of central or primary branch pulmonary embolus of the right lung, with possible distal subbranch disease (see text). V/Q Scan at [facility] 11/01/2018: Possible sequela of prior pulmonary emboli in all segments of the right upper lobe and superior segment of the right lower lobe, recommend further evaluation with CTA chest. Low probability of acute pulmonary embolism. Right and Left Heart Cath at [facility] 10/25/2018: RA 17 mmHg RV 124/22 mmHg PA 120/43 with mean 74 mmHg PCWP 17-19 CI 1.9 LM 15% ostial narrowing Possible LAD bridging, with no significant fixed disease No sig Cx or RCA disease. TTE at [facility] 09/20/2018: -Moderately increased wall thickness. -LVEF 65-70% without RWMAs -Mild-moderate RV enlargement with moderate to severely reduced systolic function -Septal flattening c/w RV volume/pressure overload. -Moderate LIZ -Mild-moderate ND -Estimated PASP 54 mmHg. Regadenoson SPECT at [facility] 09/22/2018: -LVEF 66% without RWMAs -Small to moderate amount of reversible perfusion defect is noted in the anterior wall at the base of the heart. -Intermediate risk test. Assessment & Plan: Trae Urbina is a 43-y.o. male with morbid obesity, DM2, depression, HTN , asthma, NILES on BiPap, and an abnormal nuclear stress test done at [facility] in the setting of indeterminate troponins. ICD-9-CM ICD-10-CM 1. Pulmonary hypertension (HCC) 416.8 I27.20 DME HOME OXYGEN (AMB) 2. Chronic right-sided heart failure (HCC) 428.0 I50.812 3. Other pulmonary embolism without acute cor pulmonale, unspecified chronicity (HCC) 415.19 I26.99 4. Morbid obesity (HCC) 278.01 E66.01 1. Severe Pulmonary HTN (Group 1 +/- Group 4): Pt is making some symptomatic headway with O2 therapy, diuretics, and pulmonary vasodilators. His BP is OK today and BPs were also OK at his recent [facility] admission, so I'm not convinced that the pulmonary vasodilators were the primary reason for his dizziness. He does describe an association of his lightheadedness with lifting heavier objects , so it's possible that sxs were related to a transient decrease in preload. Will proceed as follows: Continue current therapy with tadalafil, ambrisentan, torsemide, and spironolactone. It's possible we'll have to back off on the diuretics a bit as we go forward, but I'd like to keep them as-is for now. Continue ATC O2 therapy and nightly BiPap. Weight loss as below Cont Xarelto. He was kept on aspirin, but I'm stopping that today given some issues with gingival bleeding and no clear indication for antiplatelet agents. Pt will continue to f/u with [facility] pulmonary HTN clinic (has appt with them in a couple weeks). I counseled pt on sodium restriction and avoiding very heavy lifting and straining. 2. 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 At this time, his pulmonary HTN is too severe to safely undergo a bariatrics procedure. However, if we're able to make significant headway with his pulmonary pressures over the coming year, then I think we should strongly consider pursuing bariatrics despite the higher risk in this patient. In the meantime, I counseled the pt and his sister in law regarding weight loss withportion control and gradually increasing his activity levels. Thank you for allowing me to participate in the care of Trae Urbina. We will plan on f/u in our office in ~2 months or sooner prn. If you have any questions or concerns please feel free to call our office at . Jhoan Zepeda MD, 11/28/2018, 07:38 This note was created using my previous note as a template; changes were made where appropriate, andall information in the current note is up to date to the best of my knowledge. Time involved was 50 minutes. More than 50% of the physician/patient and or family encounter was spent with counseling and coordination of care. documented in this encounter Plan of Treatment Date Type Specialty Care Team Description 12/04/2018 Office Visit Family [facility] Chong Oliveros MD [address] [place] [address] [phone] 01/04/2019 Office Visit Family Practice Chong Oliveros MD [address] [place] [address] [phone] 01/29/2019 Office Visit Cardiology Jhoan Zepeda MD [address] [place] [address] [phone] 02/08/2019 Office Visit Endocrinology Ynes Belle, [facility] [address] [place] [address] Name Type Priority Associated Diagnoses Order Schedule DME HOME OXYGEN (AMB) Referral Routine Pulmonary hypertension Ordered: (HCC) Health Maintenance Due Date Last Done [...] Problems Progress Blood Pressure Blood Pressure Hypertension 110/78 No Susan, < 140/90 (11/27/2018 Lise, 4:06 PM EDT) Note: Hypertension Care Plan Based [...] Educational Resources: National Heart, Lung, & Blood [place] http://nhlbi.nih.gov/hbp/index.html The DASH Diet Eating Plan http://www.nhlbi.nih.gov/health/health-topics/ topics/dash/ Academy of Nutrition & DIetetics http://eatright.org National Smoking Cessation Site http://smokefree.gov Blood Pressure < Blood Pressure 110/78 (11/27/2018 No Lise Davis, 140/90 4:06 PM EDT) Note: This is an individualized [...] my blood sugar results (including dextrose sticks). Piggybackr is safe and secure way for you [...] my blood sugar results (including dextrose sticks). Piggybackr is safe and secure way for you [...] 7.0 Diabetes 10.9 (10/12/2018 3:02 No Lise Davis PM EDT) Note: This is an individualized treatment (diabetes control, HgbA1C) goal for Trae Urbina: Displayed above is your progress towards your HgbA1C goal. Your goal is shown above (on the left); your most recent HgbA1C is shown on the right. Note that lower numbers are better. Weight loss vs. 18 mo Lifestyle 30 (11/27/2018 4:06 PM Lise Lima MD max (lbs) >= [...] - Primary Other chronic pulmonary heart diseases Chronic right-sided heart failure (HCC) Congestive heart failure, unspecified Other pulmonary embolism without acute cor pulmonale, unspecified chronicity ( HCC) Morbid obesity (HCC) Morbid obesity documented in this encounter Guarantor Name Account Type Relation to Date of Phone Billing Patient Address Trae Urbina Personal/Family 1975 [address] (Home) [place], [place] [phone] (Work) documented as of this encounter
[2018-12-02 22:43] LABS: ABS Basophils 0.1 10^3/ul (0-0.2); ABS Eosinophils 0.2 10^3/ul (0-0.6); ABS Lymphocytes 0.8 10^3/ul (1.0-4.8); ABS Monocytes 0.3 10^3/ul (0-0.8); ABS Neutrophils 5.7 10^3/ul (1.5-7.7); Eosinophil % 2.2 %; Hematocrit 35 % (42-52); Hemoglobin 11.9 g/dL (14.0-18.0); Lymphocyte % 11.2 %; Mean Corpuscular HGB Conc 34 g/dL (31-36); Mean Corpuscular Hemoglobin 29 pg (27-31); Mean Corpuscular Volume 86 fL (80-94); Mean Platelet Volume 7.8 fL (7.4-10.4); Platelet Count 141 10^3/uL (150-450); Red Blood Count 4.11 10^6 /uL (4.18-5.48); Red Cell Distribution Width 16 % (10-15)
[2018-12-02 22:56] LABS: Albumin 3.5 g/dL (3.2-5.2); Albumin/Globulin Ratio 1.7 (1-3); BUN/Creatinine Ratio 13.1 (8-20); C Reactive Protein 37.15 mg/L (<8.01); Calcium 8.7 mg/dL (8.6-10.3); EGFR African American 79.2 (>60); EGFR Non-African American 65.5 (>60); Globulin 2.1 g/dL (2-4); Potassium 3.9 mmol/L (3.5-5.0); Total Bilirubin 0.4 mg/dL (0.2-1.0); Total Protein 5.6 g/dL (6.4-8.9)
[2018-12-02 22:58] LABS: Troponin I 0.01 ng/mL (<0.04)
[2018-12-02] MEDS ORDERED: NS 0.9% 1000 ML** 1,000 ML IV ONE (23:04)
[2018-12-02] MEDS ORDERED: LORazepam INJ* 2 MG/ML 1 ML VIAL IV ONE (23:05)
[2018-12-02] MEDS ORDERED: Lorazepam PYXIS KEY PRN (23:05)
[2018-12-02] MEDS ORDERED: Lorazepam PYXIS KEY ONE (23:23)
--- NOTE | 2018-12-03 02:10 | ED ---
Dizziness - HPI Summary HPI Summary: Patient presents for ongoing dizziness, chills. Patient's family also state they noticed right-sided weakness and right upper extremity starting today. Dizziness described as room spinning. Symptoms are intermittent. Patient was admitted to [facility] 1 week ago for same symptoms with negative workup including negative CTA chest and thorax, negative CT brain, negative MRI brain, negative MRA head and neck, negative VQ scan. Patient has history of PE, currently taking Xarelto. Per discharge summary dizziness could not be controlled during stay here at [facility], but did improve with 20/09/01. Patient was started on 20/09/01 upon discharge. Patient was also advised to follow-up with primary care to see if dizziness related to medications. Patient also is followed by pulmonology in [place], believes dizziness is secondary to patient's pulmonary hypertension. Patient denies fever, cough, sore throat, URBINA, CP, SOB, N/V/D, abdominal pain, change in urine, change in BM. Medical history is prior PE, pulmonary hypertension, DM, HTN, obesity, gout, sleep apnea. Patient was discharged from hospital with prescription for meclizine. Patient states he has not been taking meclizine as his geological aide stated he would do him no good. Patient has follow-up appointment with master rigger in [place] on December 11. - History Of Current Complaint Chief Complaint: EDGeneral Stated Complaint: DIZZY,WEAKNESS PER EMS Time Seen by Provider: 12/02/18 22:21 Hx Obtained From: Patient, Family/Branch Associate Teller Onset/Duration: Still Present Timing: Intermittent Episode Lasting Severity Initially: Severe Severity Currently: Severe Character: Room Spinning Aggravating Factor(s): Exertion, Position Change Alleviating Factor(s): Rest, Lying Down Associated Signs And Symptoms: Positive: Negative - Allergies/Home Medications Allergies/Adverse Reactions: Allergies Allergy/AdvReac Type Severity Reaction Status Date / Time dextromethorphan Allergy Nausea Verified 12/02/18 22:34 [From Mucinex DM] guaifenesin [From Mucinex DM] Allergy Nausea Verified 12/02/18 22:34 ibuprofen [From Motrin] Allergy rash/kidneys Verified 12/02/18 22:34 shut down orange oil Allergy hives Uncoded 11/19/18 20:02 diff breathing PMH/Surg Hx/FS Hx/Imm Hx Endocrine/Hematology History: Reports: Hx Diabetes Denies: Hx Thyroid Disease, Hx Anemia, Hx Unexplained Bleeding Cardiovascular History: Reports: Hx Hypertension Denies: Hx Aneurysm, Hx Angina, Hx Auto Implanted Cardiovert Defib, Hx Cardiac Arrest, Hx Congenital Heart Disease, Hx Congestive Heart Failure, Hx Coronary Artery Disease, Hx Deep Vein Thrombosis, Hx Embolism, Hx Hypercholesterolemia, Hx Hypotension, Hx Myocardial Infarction, Hx Pacemaker/ICD , Hx Peripheral Vascular Disease, Hx Rheumatic Fever, Hx Syncope, Hx Valvular Heart Disease, Other Cardiovascular Problems/Disorders Respiratory History: Reports: Hx Asthma, Hx Pulmonary Embolism - currently on xarelto, Hx Sleep Apnea - uses cpap, Other Respiratory Problems/Disorders - pulmonary HTN, obstructive hypoventilation Denies: Hx Chronic Obstructive Pulmonary Disease (COPD), Hx Cystic Fibrosis, Hx Lung Cancer, Hx Pleural Effusion, Hx Pneumonia, Hx Pulmonary Edema, Hx Seasonal Allergies GI History: Denies: Hx Cirrhosis, Hx Crohn's Disease, Hx Diverticulosis, Hx Gall Bladder Disease, Hx Gastroesophageal Reflux Disease, Hx Gastrointestinal Bleed, Hx Hiatal Hernia, Hx Irritable Bowel, Hx Jaundice, Hx Obstructive Bowel, Hx Ileostomy, Hx Pyloric Stenosis, Hx Ulcer, Other GI Disorders History: Reports: Other Problems/Disorders - kidney "issues" when he takes ibuprofen Denies: Hx Acute Renal Failure, Hx Benign Prostatic Hyperplasia, Hx Chronic Renal Failure, Hx Dialysis, Hx Kidney Infection, Hx Kidney Stones, Hx Renal Disease Musculoskeletal History: Reports: Hx Gout Denies: Hx Arthritis, Hx Back Problems, Hx Bursitis, Hx Congenital Bone Abnormalities, Hx Fibromyalgia, Hx Osteoporosis, Hx Scoliosis, Hx Tendonitis, Other Musculoskeletal History Sensory History: Reports: Hx Contacts or Glasses Denies: Hx Cataracts, Hx Eye Injury, Hx Eye Prosthesis, Hx Glaucoma, Hx Legally Blind, Hx Macular Degeneration, Hx Vision Problem, Hx Deafness, Hx Hearing Aid, Hx Hearing Problem, Other Sensory Impairments Opthamlomology History: Reports: Hx Contacts or Glasses Denies: Hx Cataracts, Hx Eye Injury, Hx Eye Prosthesis, Hx Glaucoma, Hx Legally Blind, Hx Macular Degeneration, Hx Vision Problem, Other Sensory Impairments Neurological History: Reports: Other Neuro Impairments/Disorders - previous diagnosis of vertigo Denies: Hx Dementia, Hx Developmental Delay, Hx Headaches, Hx Migraine, Hx Nerve Disease, Hx Seizures, Hx Spinal Cord Injury, Hx Transient Ischemic Attacks (TIA) Psychiatric History: Reports: Hx Anxiety, Hx Depression, Hx Community Mental Health Tx, Hx Suicide Attempt Denies: Hx Attention Deficit Hyperactivity Disorder, Hx Autism, Hx Eating Disorder, Hx Panic Disorder, Hx Post Traumatic Stress Disorder, Hx Inpatient Treatment, Hx Schizophrenia, Hx Bipolar Disorder, Hx of Violent Episodes Against Others - Cancer History Cancer Type, Location and Year: none - Surgical History Surgery Procedure, Year, and Place: RIGHT WRIST FRACTURE, SCREWS PLACED. Hx Anesthesia Reactions: No - Immunization History Date of Tetanus Vaccine: UNKNOWN Infectious Disease History: No Infectious Disease History: Denies: Hx Clostridium Difficile, Hx Hepatitis, Hx Human Immunodeficiency Virus (HIV), Hx of Known/Suspected MRSA, Hx Shingles, Hx Tuberculosis, History Other Infectious Disease, Traveled Outside the [place] in Last 30 Days - Family History Known Family History: Positive: Hypertension, Diabetes, Other - cancer Negative: Cardiac Disease - Social History Alcohol Use: Occasionally Hx Substance Use: No Substance Use Type: Reports: None Hx Tobacco Use: No Smoking Status (MU): Never Smoked Tobacco Have You Smoked in the Last Year: No Review of Systems Constitutional: Negative Eyes: Negative ENT: Negative Cardiovascular: Negative Respiratory: Negative Gastrointestinal: Negative Genitourinary: Negative Musculoskeletal: Negative Skin: Negative Neurological: Negative Psychological: Normal All Other Systems Reviewed And Are Negative: Yes Physical Exam - Summary Physical Exam Summary: Neuro exam normal. Triage Information Reviewed: Yes Vital Signs On Initial Exam: Initial Vitals Temp Pulse Resp BP Pulse Ox 98.8 F 94 18 138/80 98 12/02/18 22:08 12/02/18 22:08 12/02/18 22:08 12/02/18 22:08 12/02/18 22:08 Vital Signs Reviewed: Yes Appearance: Positive: Well-Appearing Skin: Positive: Warm Head/Face: Positive: Normal Head/Face Inspection Eyes: Positive: Normal ENT: Positive: Normal ENT inspection Neck: Positive: Supple Respiratory/Lung Sounds: Positive: Clear to Auscultation Cardiovascular: Positive: Normal Abdomen Description: Positive: Nontender Musculoskeletal: Positive: Normal Neurological: Positive: Normal Psychiatric: Positive: Normal AVPU Assessment: Alert - Андрей Coma Scale Best Eye Response: 4 - Spontaneous Best Motor Response: 6 - Obeys Commands Best Verbal Response: 5 - Oriented Coma Scale Total: 15 Procedures - Sedation Patient Received Moderate/Deep Sedation with Procedure: No Diagnostics - Vital Signs Vital Signs Temp Pulse Resp BP Pulse Ox 12/03/18 02:00 84 13 93 12/03/18 01:13 34 108/54 12/03/18 01:00 84 24 95 12/03/18 00:44 86 35 119/52 92 12/03/18 00:14 87 30 122/51 91 12/03/18 00:05 84 30 95 12/03/18 00:04 85 28 117/61 92 12/03/18 00:03 87 19 91 12/02/18 23:44 86 36 129/74 92 12/02/18 23:26 20 12/02/18 23:14 33 128/68 12/02/18 23:00 88 29 96 12/02/18 22:44 89 22 121/70 93 12/02/18 22:15 93 23 95 12/02/18 22:14 91 26 138/80 96 12/02/18 22:08 98.8 F 94 18 138/80 98 - Laboratory Lab Results: Lab Results 12/02/18 12/02/18 12/02/18 Range/Units 22:32 22:32 22:32 WBC 7.0 (3.5-10.8) 10^3/uL RBC 4.11 L (4.18-5.48) 10^6 /uL Hgb 11.9 L (14.0-18.0) g/dL Hct 35 L (42-52) % MCV 86 (80-94) fL MCH 29 (27-31) pg MCHC 34 (31-36) g/dL RDW 16 H (10-15) % Plt Count 141 L (150-450) 10^3/uL MPV 7.8 (7.4-10.4) fL Neut % (Auto) 80.9 % Lymph % (Auto) 11.2 % [place] % (Auto) 4.7 % Eos % (Auto) 2.2 % Baso % (Auto) 1.0 % Absolute Neuts (auto) 5.7 (1.5-7.7) 10^3/ul Absolute Lymphs (auto) 0.8 L (1.0-4.8) 10^3/ul Absolute Monos (auto) 0.3 (0-0.8) 10^3/ul Absolute Eos (auto) 0.2 (0-0.6) 10^3/ul Absolute Basos (auto) 0.1 (0-0.2) 10^3/ul Absolute Nucleated RBC 0.0 10^3/ul Nucleated RBC % 0.0 ABG pH (7.35-7.45) ABG pCO2 (35-45) mmHg ABG pO2 (80-100) mmHg ABG HCO3 (19-31) mmol/L ABG O2 Saturation (94.0-98.0) % ABG Base Excess (-2.0-2.0) mmol/L Sodium 133 L (135-145) mmol/L Potassium 3.9 (3.5-5.0) mmol/L Chloride 99 L (101-111) mmol/L Carbon Dioxide 28 (22-32) mmol/L Anion Gap 6 (2-11) mmol/L BUN 16 (6-24) mg/dL Creatinine 1.22 H (0.67-1.17) mg/dL Est GFR ( Amer) 79.2 (>60) Est GFR (Non-Af Amer) 65.5 (>60) BUN/Creatinine Ratio 13.1 (8-20) Glucose 224 H (70-100) mg/dL Calcium 8.7 (8.6-10.3) mg/dL Total Bilirubin 0.40 (0.2-1.0) mg/dL AST 12 L (13-39) U/L ALT 13 (7-52) U/L Alkaline Phosphatase 46 (34-104) U/L Troponin I 0.01 (<0.04) ng/mL C-Reactive Protein 37.15 H (<8.01) mg/L Total Protein 5.6 L (6.4-8.9) g/dL Albumin 3.5 (3.2-5.2) g/dL Globulin 2.1 (2-4) g/dL Albumin/Globulin Ratio 1.7 (1-3) TSH 2.26 (0.34-5.60) mcIU/mL 12/03/18 12/03/18 Range/Units 01:23 01:50 WBC (3.5-10.8) 10^3/uL RBC (4.18-5.48) 10^6 /uL Hgb (14.0-18.0) g/dL Hct (42-52) % MCV (80-94) fL MCH (27-31) pg MCHC (31-36) g/dL RDW (10-15) % Plt Count (150-450) 10^3/uL MPV (7.4-10.4) fL Neut % (Auto) % Lymph % (Auto) % [place] % (Auto) % Eos % (Auto) % Baso % (Auto) % Absolute Neuts (auto) (1.5-7.7) 10^3/ul Absolute Lymphs (auto) (1.0-4.8) 10^3/ul Absolute Monos (auto) (0-0.8) 10^3/ul Absolute Eos (auto) (0-0.6) 10^3/ul Absolute Basos (auto) (0-0.2) 10^3/ul Absolute Nucleated RBC 10^3/ul Nucleated RBC % ABG pH 7.44 (7.35-7.45) ABG pCO2 39 (35-45) mmHg ABG pO2 70 L (80-100) mmHg ABG HCO3 26.6 (19-31) mmol/L ABG O2 Saturation 96.5 (94.0-98.0) % ABG Base Excess 2.3 H (-2.0-2.0) mmol/L Sodium (135-145) mmol/L Potassium (3.5-5.0) mmol/L Chloride (101-111) mmol/L Carbon Dioxide (22-32) mmol/L Anion Gap (2-11) mmol/L BUN (6-24) mg/dL Creatinine (0.67-1.17) mg/dL Est GFR ( Amer) (>60) Est GFR (Non-Af Amer) (>60) BUN/Creatinine Ratio (8-20) Glucose (70-100) mg/dL Calcium (8.6-10.3) mg/dL Total Bilirubin (0.2-1.0) mg/dL AST (13-39) U/L ALT (7-52) U/L Alkaline Phosphatase (34-104) U/L Troponin I 0.01 (<0.04) ng/mL C-Reactive Protein (<8.01) mg/L Total Protein (6.4-8.9) g/dL Albumin (3.2-5.2) g/dL Globulin (2-4) g/dL Albumin/Globulin Ratio (1-3) TSH (0.34-5.60) mcIU/mL Result Diagrams: 12/02/18 22:32 12/02/18 22:32 Lab Statement: Any lab studies that have been ordered have been reviewed, and results considered in the medical decision making process. Dizzy Course/Dx - Course Course Of Treatment: Patient presents for ongoing dizziness, chills. Patient's family also state they noticed right-sided weakness and right upper extremity starting today. Dizziness described as room spinning. Symptoms are intermittent. Patient was admitted to [facility] 1 week ago for same symptoms with negative workup including negative CTA chest and thorax, negative CT brain, negative MRI brain, negative MRA head and neck, negative VQ scan. Patient has history of PE, currently taking Xarelto. Per discharge summary dizziness could not be controlled during stay here at [facility], but did improve with 20/09/01. Patient was started on 20/09/01 upon discharge. Patient was also advised to follow-up with primary care to see if dizziness related to medications. Patient also is followed by pulmonology in [place], believes dizziness is secondary to patient's pulmonary hypertension. Patient denies fever, cough, sore throat, URBINA, CP, SOB, N/V/D, abdominal pain, change in urine, change in BM. Medical history is prior PE, pulmonary hypertension, DM, HTN, obesity, gout, sleep apnea. Patient was discharged from hospital with prescription for meclizine. Patient states he has not been taking meclizine as his geological aide stated he would do him no good. Patient has follow-up appointment with master rigger in [place] on December 11. Patient on oxygen. Vital signs within normal limits. Labs at baseline or within normal limits. No imaging for PE was indicated as patient had CTA 2 weeks ago and is anticoagulated on Xarelto. Chest x-ray negative. CT brain negative for acute process. Symptoms mildly controlled with 1 mg Ativan. Also some improvement after 1 L normal saline. Patient and patient's family advised to follow-up with master rigger and neurologist for possible vestibular rehabilitation. Patient and patient's family understand and approve of plan. - Diagnoses Provider Diagnoses: Dizziness Discharge ED - Sign-Out/Discharge Documenting (check all that apply): Patient Departure - Discharge Plan Condition: Stable Disposition: HOME Patient Education Materials: Vertigo (ED), Dizziness (ED) Referrals: No Primary Care Phys,NOPCP [Primary Care Provider] - Aly Myers MD [Medical Doctor] - Additional Instructions: Follow-up with neurologist Dr. Myers for further evaluation of ongoing dizziness. Follow-up with your master rigger in [place] for further evaluation of pulmonary hypertension. Follow-up with primary care to determine if dizziness is medication related. Return to the ED for any new or worsening symptoms. - Billing Disposition and Condition Condition: STABLE Disposition: Home
[2018-12-03 02:37] VITALS: BP 120/70
== END 2018-12-03 02:30 | disposition home or self-care (01) ==
LOC: ED 22:07
DX: R42 Dizziness and giddiness (principal); E11.9 Type 2 diabetes mellitus without complications; J45.909 Unspecified asthma, uncomplicated; Z86.711 Personal history of pulmonary embolism; F41.9 Anxiety disorder, unspecified; F32.9 Major depressive disorder, single episode, unspecified; Z79.01 Long term (current) use of anticoagulants; Z79.4 Long term (current) use of insulin; Z79.899 Other long term (current) drug therapy; Z88.6 Allergy status to analgesic agent; Z88.8 Allergy status to other drugs, medicaments and biological substances
CPT/HCPCS: 36415; 70450; 71046; 80053; 82803; 84443; 84484; 85025; 86140; 93005; 96361; 96374; 99283; J2060

== ENCOUNTER 2018-12-18 13:02 | Emergency (ER) | payer MEDICARE ==
--- OUTSIDE RECORDS SUMMARY | 2018-12-18 13:16 | XMS REPORT | Summary of Care ---
:1975 Author Organization [facility] Address [address] [facility] [place] [address] Care Team Providers Name Role Phone Lilli Chen RN Unavailable Chong Oliveros Primary Care Provider Reason for Referral Durable Medical Equipment (Routine) Status Reason Specialty Diagnoses / Referred By Referred To Procedures Contact Contact Pending Review Diagnoses Pulmonary hypertension (HCC) Chong Oliveros MD [address] [place] [address] Reason for Visit Reason Comments Transitional Care Management pt presents for TCM [place] [facility] with dizziness and chest pain Encounter Details Date Type Department Care Team Description 12/04/2018 Office Visit [facility] Chong Oliveros MD Dizziness (Primary Dx); Practice [address] [facility] Major depressive disorder with current active episode, unspecified depression episode severity, unspecified whether recurrent; [address] [place] [address] Pulmonary hypertension (HCC); [place] [address] Morbid obesity (HCC); [phone] Type 2 diabetes mellitus with complication (HCC); Anemia, unspecified type; Foot callus Allergies Active Allergy Reactions Severity Noted Date Comments Bee Sting Respiratory Reaction 09/19/2013 SOB, throat tightness Glipizide Other 09/20/2007 Burning pain in chest Aspartame-Ibuprofen Other 10/02/2011 Mucinex Hives 03/02/2018 Gladwin Other 10/02/2011 documented as of this encounter (statuses as of 12/10/2018) Medications Medication Sig Dispensed Refills Start Date End Date Status HYDROXYPROPYL Place 2 Drops to 1 Bottle 0 02/14/2014 Active METHYLCELLULOSE the external eye (GENTEAL MILD TO DAILY NEEDED MODERATE) 0.3 % (2 drops in both Ophthalmic Solution eyes ever 3 hours as needed). loratadine take 1 tablet by 30 Tab 5 11/05/2014 Active (CLARITIN,ALAVERT) 10 mouth once daily MG Oral Tab Nystatin 361484 UNIT/GM 1 g by Apply 1 Bottle 2 04/26/2017 Active Apply externally Powder externally route TWICE DAILY. mirtazapine (REMERON) Take 15 mg by 0 Active 15 MG Oral Tab mouth EVERY BEDTIME. aripiprazole (ABILIFY) Take 5 mg by 0 Active 5 MG Oral Tab mouth EVERY BEDTIME. GLARGINE insulin, Inject 35-40 6 Each 5 07/27/2017 Active LONG-Acting, (LANTUS) Units beneath the 100 UNIT/ML skin TWICE DAILY. Subcutaneous Solution 40 U in AM and 35 U PM - E11.9 Additional information Patient taking differently: 60 Units Subcutaneous BID, 50 U in AM and 40 U PM - E11.9, Reported on 12/04/2018 3:33 PM EPINEPHrine (EPIPEN 2-STU) 1 Device by Injection 2 Each 0 08/24/2017 Active 0.3 MG/0.3ML Injection route DIRECTED. As Solution Auto-injector directed for bee sting Blood Glucose Monitor 1 Device by Does not 1 Device 0 08/25/2017 Active Software Does not apply apply route DIRECTED. Device Insurance preferred. E11.9 albuterol HFA (VENTOLIN) 108 Take 2 Puffs by 1 Inhaler 0 06/09/2018 Active (90 Base) MCG/ACT Inhalation inhalation EVERY FOUR Aero Soln HOURS NEEDED (1-2 puffs every four hours as needed). allopurinol (ZYLOPRIM) 100 TAKE TWO TABLETS BY MOUTH 120 Tab 0 08/05/2018 Active MG Oral Tab TWICE A DAY Additional information Patient taking differently: 100 mg BID, Reported on 12/04/2018 3:33 PM carvedilol (COREG) Take 1 Tab by 180 Tab 3 10/24/2018 Active 3.125 MG Oral Tab mouth TWICE DAILY. rivaroxaban (XARELTO) Take by mouth. 0 Active 20 MG Oral Tab Tadalafil 20 MG Oral Take [...] mg by 0 Active Tab mouth DAILY. buPROPion (WELLBUTRIN Take 1 Tab by 30 Tab 5 12/04/2018 Active XL) 300 MG Oral mouth DAILY. TABLET SR 24 HR Spironolactone 50 MG Take 1 Tab by 30 Tab 2 12/04/2018 Active Oral Tab mouth DAILY. buPROPion (WELLBUTRIN Take 1 Tab by 30 Tab 5 12/04/2018 Active SR) 150 MG Oral mouth DAILY. TABLET SR 12 HR Aripiprazole Take 1 Tab by 30 Tab 1 12/04/2018 Active (ABILIFY) 2 MG Oral mouth EVERY Tab BEDTIME. buPROPion (WELLBUTRIN take 1 tablet by 30 Tab 5 10/25/201612/04/ Discontinued XL) 300 MG Oral mouth once daily 2018 (Reorder) TABLET SR 24 HR BUPROPION HCL ER, SR, Take 150 mg by 0 12/04/ Discontinued PO mouth. 2018 (Reorder) Spironolactone 50 MG Take by mouth. 0 12/04/ Discontinued Oral Tab 2018 (Reorder) documented as of this encounter (statuses as of 12/10/2018) Active Problems Problem Noted Date Pulmonary arterial hypertension 11/28/2018 Depression 03/10/2012 BMI 70 and over, adult 08/28/2010 Gout 12/04/2007 Morbid obesity 04/28/2007 Type 2 diabetes mellitus with complication 04/28/2007 Hypertension 04/28/2007 Asthma 04/28/2007 Allergic Rhinitis 04/28/2007 Sleep apnea Overview: bipap documented as of this encounter (statuses as of 12/10/2018) Resolved Problems Problem Noted Date Resolved Date Wrist fracture 10/02/2011 Overview: R, open reduction and fixation documented as of this encounter (statuses as of 12/10/2018) Immunizations Name Administration Dates Next Due Influenza (IM) Preservative Free 12/04/2018, 01/02/2018, 12/21/2016, 12/23/2015, 12/24/2013, 11/23/2012, 03/02/2012, 02/16/2010, [...] Sign Reading Time Taken Comments Blood Pressure 106/64 12/04/2018 3:09 PM EDT Pulse 84 12/04/2018 3:09 PM EDT Temperature 37.7 12/04/2018 3:09 PM C (99.9 EDT F) Respiratory Rate - - Oxygen Saturation 97% 12/04/2018 3:09 PM EDT Inhaled Oxygen Concentration - - Weight 183.1 kg (403 lb 9.6 oz) 12/04/2018 3:09 PM EDT Height 172.7 cm (5' 8") 12/04/2018 3:09 PM EDT Body Mass Index 61.37 12/04/2018 3:09 PM EDT documented in this encounter Patient Instructions Patient InstructionsChong Oliveros MD - 12/04/2018 3:00 PM EDTKeep follow up with specialists documented in this encounter Progress Notes Chong Oliveros MD - 12/04/2018 3:00 PM EDT PATIENT: Trae Urbina : 1975 DATE OF SERVICE: 12/04/2018 CHIEF COMPLAINT: Chief Complaint Patient presents with Transitional Care Management pt presents for TCM from [place] [facility]/c 11/25/18 with dizziness and chest pain Subjective HISTORY OF PRESENT ILLNESS: Trae Urbina is a 43-y.o. male. Patient assigned to me for some reason after seeing Dr Aracely Lopez for hospital follow up. TCM call was made. Admitted 11/20 and discharged 11/25. Diagnosis was dizziness , unclear etiology His PMH was reviewed, recent diagnosis pulm hypertension in [place] via cath . Put on cialis andambrisentan along with torsemide and aldactone . He had additional workup suggesting PE so xarelto started Despite these changes he went to the hospitial for new complaint of dzziness.. He would feel the room spinning but not just when up but even laying down. Neurology consulted and they did not feel it was a stroke or other neurologic event and they felt he should wean down his psych med as they could cause dizziness. However sister in law who is the aide says he has been out of 5 mg abilify for 3 weeks He had CTA head , no thrombis Mri brain nothing acute , mra head and neck normal VQ low probability Nocturnal ox low X 4 minutes despite cpap so oxyge added and he said he felt better He was able to maintain good sats 2 liter sit and 4 liter walk but since home feels better 3 l sit They recommended he follow up with psych to adjust remeron, wellbutrin and abilify but as already mention out of abilify before this started. Also to follow up with podiatry for ulcer on foot Sent home on meclizine but that not seem to help Allopurinol dose decreased to 100 bid ? Due to dizziness?? Dr Villarreal consulted and suggeste starting acetazolamide for increased intracranial prssure He does have URBINA with the dizziness hct 36 plts 126 crp 29 Lytes ok Since home he went back to ER 12/02 dizzy again Cbc unchanged , cmp ok except protein low 5.6 1+ protein on UA tsh normal anc crp is up to 37 Past Medical History: Diagnosis Date Allergic Rhinitis 04/28/2007 Asthma 04/28/2007 Depression Diabetes 04/28/2007 Gout Hypertension 04/28/2007 Morbid obesity (HCC) 04/28/2007 Pulmonary arterial hypertension (HCC) 11/28/2018 Pulmonary emboli (HCC) 2019 Sleep apnea bipap 14/12 Wrist fracture R, [...] TWO TABLETS BY MOUTH TWICE A DAY (Patient taking differently: 100 mg TWICE DAILY.) Ambrisentan 5 MG Oral Tab Take 5 mg by mouth DAILY. Aripiprazole (ABILIFY) 2 MG Oral Tab Take 1 Tab by mouth EVERY BEDTIME. aripiprazole (ABILIFY) 5 MG Oral Tab Take [...] INHL by inhalation TWICE DAILY. buPROPion (WELLBUTRIN SR) 150 MG Oral TABLET SR 12 HR Take 1 Tab by mouth DAILY. buPROPion (WELLBUTRIN XL) 300 MG Oral TABLET SR 24 HR Take 1 Tab by mouth DAILY. carvedilol (COREG) 3.125 MG Oral Tab Take 1 Tab by mouth TWICE DAILY. EPINEPHrine (EPIPEN 2-STU) 0.3 MG/0.3ML Injection Solution Auto-injector 1 Device by Injection route DIRECTED. As directed for bee sting GLARGINE insulin, LONG-Acting, (LANTUS) 100 UNIT/ML Subcutaneous Solution Inject 35-40 Units beneath the skin TWICE DAILY. 40 U in AM and 35 U PM - E11.9 (Patient taking differently: Inject 60 Units beneath the skin TWICE DAILY. 50 [...] 15 mg by mouth EVERY BEDTIME. Nystatin 964223 UNIT/GM Apply externally Powder 1 g by Apply externally route TWICE DAILY. ONE TOUCH ULTRA TEST STRIPS In Vitro Strip USE TO TEST TWICE DAILY DIRECTED rivaroxaban (XARELTO) 20 MG Oral Tab Take by mouth. Spironolactone 50 MG Oral Tab Take 1 Tab by mouth DAILY. Tadalafil 20 MG Oral Tab Take by mouth. torsemide (DEMADEX) 10 MG Oral Tab Take 10 mg by mouth DAILY. No current facility-administered medications for this visit. Allergies Allergen Reactions Bee Sting Respiratory Reaction SOB, throat tightness Glipizide Other Burning pain in chest Ibuprofen [Aspartame-Ibuprofen] Other Mucinex Hives Gladwin Other Social History Socioeconomic History Marital status: [...] Concern Not on file Social History Narrative Disability temporary -trying to get permanent REVIEW OF SYSTEMS: Review of Systems Constitutional: Asking for rails in the bathroom Respiratory: Rare albuterol use Cardiovascular: Of asa per cardiology Musculoskeletal: No gout attacks in years Skin: Supposed to see podiatry for callus foot Psychiatric/Behavioral: Out abilify 3 weeks more mood swings remeron for trouble sleeping Objective PHYSICAL EXAM: VITALS: BP 106/64 (BP Location: Left arm, Patient Position: Sitting) | Pulse 84 | Temp 99.9 F(37.7 C) | Ht 5' 8" (1.727 m) | Wt (!) 403 lb 9.6 oz (183.1 kg) | SpO2 97% | BMI 61.37 kg/m Body mass index is 61.37 kg/m. Physical Exam Vitals signs reviewed. Constitutional: General: He is not in acute distress (wearing oxygen). Appearance: He is obese. Comments: Brother in room not say anything MARY JANE adds to history Cardiovascular: Rate and Rhythm: Normal rate and regular rhythm. Heart sounds: Normal heart sounds. Pulmonary: Breath sounds: Normal breath sounds. Skin: Comments: Callus on ball of foot Neurological: Comments: Non focal Psychiatric: Comments: Dress and hygiene good Good eye contact Thoughts and speech slow Affect Appropriate Mood quiet ASSESSMENT / IMPRESSION: ICD-9-CM ICD-10-CM 1. Dizziness no etiology found but his crp climbs Did write for bathroom rails to be installed 780.4 R42 2. Major depressive disorder with current active episode, unspecified depression episode severity, unspecified whether recurrent Neurology said to wean meds but he not on abilify and why now cause theproblem and being depressed can cause dizziness . I restart abilify but at 2 mg and was advised to see mentalhealth F32.9 3. Pulmonary hypertension (HCC) per luis a wonder if new meds cialis etc causing the dizziness 416.8 I27.20 DME SHOWER/TUB TRANSFER BENCH (AMB) 4. Morbid obesity (HCC) This patient's BMI has been calculated and is above average, and BMI management plan is completed. General patient education discussion including: weight loss link to reduction of risk factors for cardiac and other diseases, importance of long-term maintenance treatment in weight loss, and accomplish with exercise as tolerated and diet control 278.01 E66.01 5. Type 2 diabetes mellitus with complication (HCC) poor control 250.90 E11.8 6. Anemia, unspecified type And low plts ? Testosterone?? 285.9 D64.9 7. [facility] called it an ulcer , not sure if ulcer unless pare it down 700 L84 Plan TCM Statement. Review of the hospitalization: I am seeing for transition of care following hospitalization. The date of discharge was: 11/25 The discharge diagnosis was Dizziness . I reviewed the discharge summary, discharge instructions, and pertinent additional documentation obtained during hospitalization. I reconciled the medications. I also reviewed the Transition of Care documentation done by staff. The tests that were not available at the time of discharge were reviewed. Additional tests which are not yet available include: none Coordination of care. (delete one and this phrase) - I am satisfied that appropriate referrals are in place to deal with the problems identified during hospitalization, and that the patient has adequate community resources and support in place. - Additional testing related to hospitilization was requested today: yes See orders. I confirmed the patient's understanding of the diagnosis and plan of care. Specific education that was provided today: Patient Instructions Keep follow up with specialists The current and discharge medications were reconciled by me, today The source document was written list of medications given to the patient Author: Chong Oliveros MD 12/04/2018 22:13 documented in this encounter Plan of Treatment Date Type Specialty Care Team Description 01/04/2019 Office Visit Family Practice Chong Oliveros MD [address] [place] [address] 01/29/2019 Office Visit Cardiology Jhoan Zepeda MD [address] [place] [address] [phone] 02/08/2019 Office Visit Endocrinology Ynes Belle, CCU NURSE [address] [place] [address] Name Type Priority Associated Diagnoses Order Schedule TESTOSTERONE FREE & TOTAL Lab Routine Anemia, unspecified type Expected: (Approximate), Expires: 12/11/2019 C-REACTIVE PROTEIN Lab Routine Dizziness Expected: 12/10/2018 (Approximate), Expires: 12/11/2019 CBC WITH DIFFERENTIAL Lab Routine Anemia, unspecified type Expected: 2018 (Approximate), Expires: 12/11/2019 COMPREHENSIVE METABOLIC Lab Routine Type 2 diabetes mellitus Expected: PANEL with complication (HCC) (Approximate), Expires: 12/11/2019 LIPID PROFILE Lab Routine Type 2 diabetes mellitus Expected: 12/10/2018 with complication (HCC) (Approximate), Expires: 12/11/2019 GLYCOHEMOGLOBIN A1C Lab Routine Type 2 diabetes mellitus Expected: 2018 with complication (HCC) (Approximate), Expires: 12/11/2019 MICROALBUMIN, RANDOM URINE Lab Routine Type 2 diabetes mellitus Expected: 12/10/2018 W/ CREATININE with complication (HCC) (Approximate), Expires: 06/08/2019 Name Type Priority Associated Diagnoses Order Schedule DME SHOWER/TUB Referral Routine Pulmonary hypertension Ordered: 12/04/2018 TRANSFER BENCH (AMB) (HCC) Health Maintenance Due Date Last Done Comments MEDICARE ANNUAL WELLNESS 12/21/2017 12/21/2016, 03/02/2012 VISIT HEMOGLOBIN A1C 01/12/2019 10/12/2018, 07/13/2018, 04/10/2018, Additional history exists DEPRESSION SCREENING 03/09/2019 03/09/2018 LIPID DISORDER SCREENING 04/10/2019 04/10/2018, 09/15/2017, 06/11/2017, Additional history exists FOOT EXAM 07/14/2019 07/13/2018, 07/13/2018, 08/24/2017, Additional history exists URINE MICROALBUMIN 09/09/2019 09/08/2018, 10/06/2016, 09/11/2014, Additional history exists Diabetic Eye Exam 03/31/2020 03/31/2018, 03/31/2018, 05/21/2015, Additional history exists PNEUMOCOCCAL 0-64 YRS Completed 09/10/2009 INFLUENZA VACCINE Completed 12/04/2018, 01/02/2018, 12/21/2016, Additional history exists HPV IMMUNIZATION SERIES Aged Out No longer eligible based on patient's age to complete this topic MENINGOCOCCAL VACCINE IMM Aged Out No longer eligible based on patient's age to complete this topic documented as of this encounter Goals Goal Patient Goal Associated Recent Patient-Stated? Author Type Problems Progress Blood Pressure Blood Pressure Hypertension 106/64 No Susan, < 140/90 (12/04/2018 Lise, 3:09 PM EDT) Note: Hypertension Care Plan Based [...] Educational Resources. record my blood pressure results. [employer] is safe and secure way for you [...] Educational Resources: National Heart, Lung, & Blood [place] http://nhlbi.nih.gov/hbp/index.html The DASH Diet Eating Plan http://www.nhlbi.nih.gov/health/health-topics/ topics/dash/ Academy of Nutrition & DIetetics http://eatright.org National Smoking Cessation Site http://smokefree.gov Blood Pressure < Blood Pressure 106/64 (12/04/2018 No Lise Davis, 140/90 3:09 PM EDT) Note: This is an individualized [...] my blood sugar results (including dextrose sticks). [employer] is safe and secure way for you [...] better. Weight loss vs. 18 mo Lifestyle 22.4 (12/04/2018 3:09 PM Lise Lima MD max (lbs) >= [...] goal. Keep a regular sleep schedule Lifestyle Lies Lima MD Note: This is an individualized lifestyle goal for Trae Urbina: Please maintain a regular sleep schedule. This may help with some symptoms of depression. Keep immunizations current Lifestyle No Lise Davis MD Note: This is an individualized lifestyle goal for Traetatiana Urbina: Please be sure to keep up-to-date on recommended immunizations. For example, this would include a yearly influenza vaccine. Immunization status can be seen by looking at the Health Maintenance sections of your [employer], Plan of Care, and any After Visit Summaries. Take all prescribed medications as Self-management No Lise Davis MD directed Note: This is an individualized self-management goal for Traetatiana Urbina: Please take all prescribed medications as [...] filedocumented in this encounter Visit Diagnoses Diagnosis Dizziness - Primary Dizziness and giddiness Major depressive disorder with current active episode, unspecified depression episode severity, unspecified whether recurrent Pulmonary hypertension (HCC) Other chronic pulmonary heart diseases Morbid obesity (HCC) Morbid obesity Type 2 diabetes mellitus with complication (HCC) Anemia, unspecified type Foot callus Corns and callosities documented in this encounter Guarantor Name Account Type Relation to Date of Phone Billing Patient Address Trae Urbina Personal/Family 1975 [address] [facility] (Home) [place], [place] [phone] [id number] (Work) documented as of this encounter
--- NOTE | 2018-12-18 13:44 | ED ---
Lower Extremity - HPI Summary HPI Summary: This patient is a 43 year old male presenting to [facility] with a chief complaint of lower extremity edema since one week ago. He also reports dizziness and chills. He states a Hx of pulmonary hypertension and diabetes. He states he is having trouble sleeping due laying down secondary to back pain. He denies SOB and chest pain. - History of Current Complaint Chief Complaint: EDExtremityLower Stated Complaint: SWOLLEN LEGS / DIZZY PER PT Time Seen by Provider: 12/18/18 13:29 Hx Obtained From: Patient Onset/Duration: Weeks Pain Intensity: 9 Pain Scale Used: 0-10 Numeric Associated Signs And Symptoms: Positive: Swelling - Allergies/Home Medications Allergies/Adverse Reactions: Allergies Allergy/AdvReac Type Severity Reaction Status Date / Time dextromethorphan Allergy Nausea Verified 12/18/18 13:10 [From Mucinex DM] guaifenesin [From Mucinex DM] Allergy Nausea Verified 12/18/18 13:10 ibuprofen [From Motrin] Allergy rash/kidneys Verified 12/18/18 13:10 shut down orange oil Allergy hives Uncoded 11/19/18 20:02 diff breathing PMH/Surg Hx/FS Hx/Imm Hx Endocrine/Hematology History: Reports: Hx Diabetes Denies: Hx Thyroid Disease, Hx Anemia, Hx Unexplained Bleeding Cardiovascular History: Reports: Hx Hypertension Denies: Hx Aneurysm, Hx Angina, Hx Auto Implanted Cardiovert Defib, Hx Cardiac Arrest, Hx Congenital Heart Disease, Hx Congestive Heart Failure, Hx Coronary Artery Disease, Hx Deep Vein Thrombosis, Hx Embolism, Hx Hypercholesterolemia, Hx Hypotension, Hx Myocardial Infarction, Hx Pacemaker/ICD , Hx Peripheral Vascular Disease, Hx Rheumatic Fever, Hx Syncope, Hx Valvular Heart Disease, Other Cardiovascular Problems/Disorders Respiratory History: Reports: Hx Asthma, Hx Pulmonary Embolism - currently on xarelto, Hx Sleep Apnea - uses cpap, Other Respiratory Problems/Disorders - pulmonary HTN, obstructive hypoventilation Denies: Hx Chronic Obstructive Pulmonary Disease (COPD), Hx Cystic Fibrosis, Hx Lung Cancer, Hx Pleural Effusion, Hx Pneumonia, Hx Pulmonary Edema, Hx Seasonal Allergies GI History: Denies: Hx Cirrhosis, Hx Crohn's Disease, Hx Diverticulosis, Hx Gall Bladder Disease, Hx Gastroesophageal Reflux Disease, Hx Gastrointestinal Bleed, Hx Hiatal Hernia, Hx Irritable Bowel, Hx Jaundice, Hx Obstructive Bowel, Hx Ileostomy, Hx Pyloric Stenosis, Hx Ulcer, Other GI Disorders History: Reports: Other Problems/Disorders - kidney "issues" when he takes ibuprofen Denies: Hx Acute Renal Failure, Hx Benign Prostatic Hyperplasia, Hx Chronic Renal Failure, Hx Dialysis, Hx Kidney Infection, Hx Kidney Stones, Hx Renal Disease Musculoskeletal History: Reports: Hx Gout Denies: Hx Arthritis, Hx Back Problems, Hx Bursitis, Hx Congenital Bone Abnormalities, Hx Fibromyalgia, Hx Osteoporosis, Hx Scoliosis, Hx Tendonitis, Other Musculoskeletal History Sensory History: Reports: Hx Contacts or Glasses Denies: Hx Cataracts, Hx Eye Injury, Hx Eye Prosthesis, Hx Glaucoma, Hx Legally Blind, Hx Macular Degeneration, Hx Vision Problem, Hx Deafness, Hx Hearing Aid, Hx Hearing Problem, Other Sensory Impairments Opthamlomology History: Reports: Hx Contacts or Glasses Denies: Hx Cataracts, Hx Eye Injury, Hx Eye Prosthesis, Hx Glaucoma, Hx Legally Blind, Hx Macular Degeneration, Hx Vision Problem, Other Sensory Impairments Neurological History: Reports: Other Neuro Impairments/Disorders - previous diagnosis of vertigo Denies: Hx Dementia, Hx Developmental Delay, Hx Headaches, Hx Migraine, Hx Nerve Disease, Hx Seizures, Hx Spinal Cord Injury, Hx Transient Ischemic Attacks (TIA) Psychiatric History: Reports: Hx Anxiety, Hx Depression, Hx Community Mental Health Tx, Hx Suicide Attempt Denies: Hx Attention Deficit Hyperactivity Disorder, Hx Autism, Hx Eating Disorder, Hx Panic Disorder, Hx Post Traumatic Stress Disorder, Hx Inpatient Treatment, Hx Schizophrenia, Hx Bipolar Disorder, Hx of Violent Episodes Against Others - Cancer History Cancer Type, Location and Year: none - Surgical History Surgery Procedure, Year, and Place: RIGHT WRIST FRACTURE, SCREWS PLACED. Hx Anesthesia Reactions: No - Immunization History Date of Tetanus Vaccine: UNKNOWN Infectious Disease History: No Infectious Disease History: Denies: Hx Clostridium Difficile, Hx Hepatitis, Hx Human Immunodeficiency Virus (HIV), Hx of Known/Suspected MRSA, Hx Shingles, Hx Tuberculosis, History Other Infectious Disease, Traveled Outside the [place] in Last 30 Days - Family History Known Family History: Positive: Hypertension, Diabetes, Other - cancer Negative: Cardiac Disease - Social History Alcohol Use: Occasionally Hx Substance Use: No Substance Use Type: Reports: None Hx Tobacco Use: No Smoking Status (MU): Never Smoked Tobacco Have You Smoked in the Last Year: No Review of Systems Positive: Chills Positive: Edema, Other - Insomnia secondary to back pain. Neurological: Other - Dizziness All Other Systems Reviewed And Are Negative: Yes Physical Exam - Summary Physical Exam Summary: Appearance: The patient is morbidly obese in no acute distress and in no acute pain. Skin: The skin is warm and dry, and skin color reflects adequate perfusion. HEENT: The head is normocephalic and atraumatic. The pupils are equal and reactive. The conjunctivae are clear and without drainage. Nares are patent and without drainage. Mouth reveals moist mucous membranes, and the throat is without erythema and exudate. The external ears are intact. The ear canals are patent and without drainage. The tympanic membranes are intact. Neck: The neck is supple with full range of motion and non-tender. There are no carotid bruits. There is no neck vein distension. Respiratory: Chest is non-tender. Lungs are clear to auscultation and breath sounds are symmetrical and equal. Cardiovascular: Heart is regular rate and rhythm. There is no murmur or rub auscultated. Pulses are symmetrical and equal. Abdomen: The abdomen is soft and non-tender. There are normal bowel sounds heard in all four quadrants and there is no organomegaly palpated. Musculoskeletal: There is no back tenderness noted. Extremities are non-tender with full range of motion. There is good capillary refill. Severe pitting edema in his bilateral lower extremities. Non-tender non erythemetous. Neurological: Patient is alert and oriented to person, place and time. The patient has symmetrical motor strength in all four extremities. Cranial nerves are grossly intact. Deep tendon reflexes are symmetrical and equal in all four extremities. Psychiatric: The patient has an appropriate affect and does not exhibit any anxiety or depression. Triage Information Reviewed: Yes Vital Signs On Initial Exam: Initial Vitals Temp Pulse Resp BP Pulse Ox 97.8 F 78 20 118/67 99 12/18/18 13:07 12/18/18 13:07 12/18/18 13:07 12/18/18 13:07 12/18/18 13:07 Vital Signs Reviewed: Yes Procedures - Sedation Patient Received Moderate/Deep Sedation with Procedure: No Diagnostics - Vital Signs Vital Signs Temp Pulse Resp BP Pulse Ox 12/18/18 13:07 97.8 F 78 20 118/67 99 - Laboratory Result Diagrams: 12/18/18 14:11 12/18/18 14:11 Lab Statement: Any lab studies that have been ordered have been reviewed, and results considered in the medical decision making process. - Radiology CXR Radiology Interpretation Completed By: Radiologist Summary of Radiographic Findings: Pulmonary vascular congestion and interstitial edema. ED Provider has reviewed this report. - EKG 1410 Cardiac Rate: NL - 73 BPM EKG Rhythm: Sinus Rhythm Summary of EKG Findings: ED Provider has reviewed and interpreted this report. Lower Extremity Course/Dx - Course Course Of Treatment: Mr. Urbina presents with increased peripheral edema. He complains of difficulty lying flat but this is because of back pain now because of shortness of breath. He was kept on monitor while we evaluated with a chest x-ray and labs. There is no evidence for congestive heart failure and I am going to increase his spironolactone and follow-up with his PCP. - Diagnoses Provider Diagnoses: Peripheral edema Discharge ED - Sign-Out/Discharge Documenting (check all that apply): Patient Departure - Discharge - Discharge Plan Condition: Stable Disposition: HOME Patient Education Materials: Leg Edema (ED) Referrals: Chong Oliveros MD [Primary Care Provider] - Additional Instructions: Take your Spironolone Lactone 50 mg twice a day. Follow up with your primary care provider. - Billing Disposition and Condition Condition: STABLE Disposition: Home - Attestation Statements Document Initiated by Rhoda: Yes Documenting Scribe: Jr Masterson Provider For Whom Rhoda is Documenting (Include Credential): Gurpreet Jaramillo MD Scribe Attestation: Jr Luna, scribed for Gurpreet Jaramillo MD on 12/18/18 at 1949. Scribe Documentation Reviewed: Yes Provider Attestation: The documentation as recorded by the Jr colon accurately reflects the service I personally performed and the decisions made by me, Gurpreet Jaramillo MD Status of Scribe Document: Viewed
[2018-12-18 14:19] LABS: ABS Eosinophils 0.1 10^3/ul (0-0.6); ABS Lymphocytes 0.6 10^3/ul (1.0-4.8); ABS Monocytes 0.4 10^3/ul (0-0.8); ABS Neutrophils 6.1 10^3/ul (1.5-7.7); Hematocrit 32 % (42-52); Hemoglobin 10.8 g/dL (14.0-18.0); Lymphocyte % 8.3 %; Mean Corpuscular HGB Conc 34 g/dL (31-36); Mean Corpuscular Hemoglobin 29 pg (27-31); Mean Corpuscular Volume 85 fL (80-94); Mean Platelet Volume 7.3 fL (7.4-10.4); Nucleated Red Blood Cells % 0.1; Platelet Count 163 10^3/uL (150-450); Red Blood Count 3.78 10^6 /uL (4.18-5.48); Red Cell Distribution Width 16 % (10-15); White Blood Count 7.2 10^3/uL (3.5-10.8)
[2018-12-18 14:26] LABS: INR 1.27 (0.82-1.09)
[2018-12-18 14:46] LABS: Albumin 3.4 g/dL (3.2-5.2); Albumin/Globulin Ratio 1.5 (1-3); BUN/Creatinine Ratio 14.9 (8-20); C Reactive Protein 49.03 mg/L (<8.01); Calcium 8.6 mg/dL (8.6-10.3); EGFR Non-African American 96.7 (>60); Globulin 2.2 g/dL (2-4); Potassium 3.9 mmol/L (3.5-5.0); Total Bilirubin 0.5 mg/dL (0.2-1.0); Total Protein 5.6 g/dL (6.4-8.9)
[2018-12-18 14:48] LABS: Troponin I 0.01 ng/mL (<0.04)
[2018-12-18 16:43] VITALS: BP 144/72
== END 2018-12-18 16:43 | disposition home or self-care (01) ==
LOC: ED 13:02
DX: R60.0 Localized edema (principal); E11.9 Type 2 diabetes mellitus without complications; I10 Essential (primary) hypertension; J45.909 Unspecified asthma, uncomplicated; F41.9 Anxiety disorder, unspecified; F32.9 Major depressive disorder, single episode, unspecified; Z86.711 Personal history of pulmonary embolism; Z79.01 Long term (current) use of anticoagulants; Z79.4 Long term (current) use of insulin; Z79.899 Other long term (current) drug therapy; Z88.6 Allergy status to analgesic agent; Z88.8 Allergy status to other drugs, medicaments and biological substances
CPT/HCPCS: 36415; 71046; 80053; 83605; 83880; 84484; 85025; 85610; 86140; 93005; 99282

== ENCOUNTER 2019-01-16 11:07 | Emergency (ER) | payer MEDICARE ==
--- OUTSIDE RECORDS SUMMARY | 2019-01-16 11:18 | XMS REPORT | Summary of Care ---
:1975 Author Organization [facility] Address [address] [facility] [place] [address] Care Team Providers Name Role Phone Lilli Chen RN Unavailable Chong Oliveros Primary Care Provider Reason for Visit Reason Comments Angioedema in the legs and feet "noticed it last tuesday" Encounter Details Date Type Department Care Team Description 12/29/2018 Office Visit [facility] Chong Oliveros MD Pulmonary arterial hypertension (HCC) (Primary Dx); Practice [address] [facility] Morbid obesity (HCC); [address] [place] [address] Type 2 diabetes mellitus with complication (HCC); [place] [address] Anemia, unspecified type [phone] Allergies Active Allergy Reactions Severity Noted Date Comments Bee Sting Respiratory Reaction 09/19/2013 SOB, throat tightness Glipizide Other 09/20/2007 Burning pain in chest Aspartame-Ibuprofen Other 10/02/2011 Mucinex Hives 03/02/2018 Bucks Other 10/02/2011 documented as of this encounter (statuses as of 12/29/2018) Medications Medication Sig Dispensed Refills Start Date End Date Status HYDROXYPROPYL Place 2 Drops to 1 Bottle 0 02/14/2014 Active METHYLCELLULOSE the external eye (GENTEAL MILD TO DAILY NEEDED MODERATE) 0.3 % (2 drops in both Ophthalmic Solution eyes ever 3 hours as needed). loratadine take 1 tablet by 30 Tab 5 11/05/2014 Active (CLARITIN,ALAVERT) 10 mouth once daily MG Oral Tab Nystatin 638917 UNIT/GM 1 g by Apply 1 Bottle 2 04/26/2017 Active Apply externally Powder externally route TWICE DAILY. mirtazapine (REMERON) Take 15 mg by 0 Active 15 MG Oral Tab mouth EVERY BEDTIME. EPINEPHrine (EPIPEN 1 Device by 2 Each 0 08/24/2017 Active 2-STU) 0.3 MG/0.3ML Injection route Injection Solution DIRECTED. As Auto-injector directed for bee sting Blood Glucose Monitor 1 Device by Does 1 Device 0 08/25/2017 Active Software Does not apply not apply route Device DIRECTED. Insurance preferred. E11.9 albuterol HFA Take 2 Puffs by 1 Inhaler 0 06/09/2018 Active (VENTOLIN) 108 (90 inhalation EVERY Base) MCG/ACT FOUR HOURS Inhalation Aero Soln NEEDED (1-2 puffs every four hours as needed). carvedilol (COREG) Take 1 Tab by 180 Tab 3 10/24/2018 Active 3.125 MG Oral Tab mouth TWICE DAILY. Tadalafil 20 MG Oral Take by mouth. 0 Active Tab budesonide-formoterol Take 2 INHL by 0 Active fumarate (SYMBICORT) inhalation TWICE 160-4.5 MCG/ACT DAILY. Inhalation Aerosol ONE TOUCH ULTRA TEST USE TO TEST TWICE 100 Strip 5 11/13/2018 Active STRIPS In Vitro Strip DAILY DIRECTED Lancets Does not apply TWICE DAILY. 100 Each 5 11/15/2018 Active Misc E11.9 BD ULTRA-FINE PEN USE TO INJECT 100 Each 0 11/27/2018 Active NEEDLES 29G X 12.7MM TWICE DAILY Does not apply Misc DIRECTED Ambrisentan 5 MG Oral Take 10 mg by 0 Active Tab mouth DAILY. buPROPion (WELLBUTRIN Take 1 Tab by 30 Tab 5 12/04/2018 Active XL) 300 MG Oral TABLET mouth DAILY. SR 24 HR buPROPion (WELLBUTRIN Take 1 Tab by 30 Tab 5 12/04/2018 Active SR) 150 MG Oral TABLET mouth DAILY. SR 12 HR Aripiprazole (ABILIFY) Take 1 Tab by 30 Tab 1 12/04/2018 Active 2 MG Oral Tab mouth EVERY BEDTIME. GLARGINE insulin, Inject 40-50 6 Each 5 12/28/2018 Active LONG-Acting, (LANTUS) Units beneath the 100 UNIT/ML skin TWICE DAILY. Subcutaneous Solution 50 U in AM and 40 U PM - E11.9 Additional information Patient taking differently: 60 Units Subcutaneous BID, 50 U in AM and 40 U PM - E11.9, Reported on 12/29/2018 4:04 PM allopurinol (ZYLOPRIM) Take 1 Tab by 60 Tab 5 12/29/2018 Active 100 MG Oral Tab mouth TWICE DAILY. rivaroxaban (XARELTO) Take 1 Tab by 30 Tab 5 12/29/2018 Active 20 MG Oral Tab mouth DAILY. Spironolactone 50 MG Take 1 Tab by 60 Tab 1 12/29/2018 Active Oral Tab mouth TWICE DAILY. torsemide (DEMADEX) 10 Take 2 Tabs by 60 Tab 1 12/29/2018 Active MG Oral Tab mouth DAILY. aripiprazole (ABILIFY) Take 5 mg by 0 12/30/19 Discontinued 5 MG Oral Tab mouth EVERY 19 BEDTIME. allopurinol (ZYLOPRIM) TAKE TWO 120 Tab 0 08/05/2018 12/30/19 Discontinued 100 MG Oral Tab TABLETS BY 19 (Reorder) MOUTH TWICE A DAY rivaroxaban (XARELTO) Take by mouth. 0 12/30/19 Discontinued 20 MG Oral Tab 19 (Reorder) torsemide (DEMADEX) 10 Take 20 mg by 0 12/30/19 Discontinued MG Oral Tab mouth DAILY. 19 (Reorder) Spironolactone 50 MG Take 1 Tab by 30 Tab 2 12/04/2018 12/30/19 Discontinued Oral Tab mouth DAILY. 19 (Reorder) documented as of this encounter (statuses as of 12/29/2018) Active Problems Problem Noted Date Pulmonary arterial hypertension 11/28/2018 Depression 03/10/2012 BMI 70 and over, adult 08/28/2010 Gout 12/04/2007 Morbid obesity 04/28/2007 Type 2 diabetes mellitus with complication 04/28/2007 Hypertension 04/28/2007 Asthma 04/28/2007 Allergic Rhinitis 04/28/2007 Sleep apnea Overview: bipap documented as of this encounter (statuses as of 12/29/2018) Resolved Problems Problem Noted Date Resolved Date Wrist fracture 10/02/2011 Overview: R, open reduction and fixation documented as of this encounter (statuses as of 12/29/2018) Immunizations Name Administration Dates Next Due Influenza [...] Sign Reading Time Taken Comments Blood Pressure 120/76 12/29/2018 3:36 PM EDT Pulse 82 12/29/2018 3:36 PM EDT Temperature 36.8 12/29/2018 3:36 PM C (98.3 EDT F) Respiratory Rate - - Oxygen Saturation 100% 12/29/2018 3:36 PM EDT Inhaled Oxygen Concentration - - Weight 189.1 kg (416 lb 12.8 oz) 12/29/2018 3:36 PM EDT Height - - Body Mass Index 63.37 12/04/2018 3:09 PM EDT documented in this encounter Progress Notes Chong Oliveros MD - 12/29/2018 3:00 PM EDT PATIENT: Trae Urbina : 1975 DATE OF SERVICE: 12/29/2018 CHIEF COMPLAINT: Chief Complaint Patient presents with Angioedema in the legs and feet "noticed it last tuesday" Subjective HISTORY OF PRESENT ILLNESS: Trae Urbina is a 43-y.o. male. Met patient for the first time last month . Complex issues. I refilled abilify wellbutrin and aldactone at that visit and he was supposed to be on torsemide . There was a call that came in while I was away that he needed to be seen because his legs were more swollen He was added on today Reviewing the chart , he saw his specialist in [place] 12/11 for his pulmonary hypertension and was told to double the aldactone to 100mg a day and double torsemide to 20 a day and to increase his ambrisentan to 10 mg a day and stay on tadalafil to 40 mg a day . However he went to the ER 1 week later with complaints of edema dizziness and chills . The ER said he was having trouble sleeping due to back pain. Patient said that was false. He did have edema and SOB but trouble sleeping due to the SOB . He denies dizziness His VSS sat 99 on 3-4 l wbc 7K, Hct 32 is a dip Cr 0.87 BUN 13 bicarb 29 and K 3.9 Na 137 He was told to double diuretics but the specialist had already said that He said he is out of abilify 5, wellbutrin and aldactone and torsemide. Note I had wrote Rx 12/04 for most of these but cut abilify to 2 mg. We called his pharmacy, the only one he said he uses and they said he picked up the aldactone written on the on the and they have never given him a Rx for torsemide and they implied the wellbutrin was picked up so why he not have those we are not sure He said support hose too $ Never used SCDs and said wrapping legs not work Sugars been 100s AM and PP on lantus 60 bid Foot is doing better Past Medical History: Diagnosis Date Allergic Rhinitis [...] needed). allopurinol (ZYLOPRIM) 100 MG Oral Tab Take 1 Tab by mouth TWICE DAILY. Ambrisentan 5 MG Oral Tab Take 10 mg by mouth DAILY. Aripiprazole (ABILIFY) 2 MG Oral Tab Take 1 Tab by mouth EVERY BEDTIME. BD ULTRA-FINE PEN [...] LONG-Acting, (LANTUS) 100 UNIT/ML Subcutaneous Solution Inject 40-50 Units beneath the skin TWICE DAILY. 50 U in AM and 40 U PM - E11.9 (Patient taking differently: [...] 15 mg by mouth EVERY BEDTIME. Nystatin [id number] UNIT/GM Apply externally Powder 1 g by Apply externally route TWICE DAILY. ONE TOUCH ULTRA TEST STRIPS In Vitro Strip USE TO TEST TWICE DAILY DIRECTED rivaroxaban (XARELTO) 20 MG Oral Tab Take 1 Tab by mouth DAILY. Spironolactone 50 MG Oral Tab Take 1 Tab by mouth TWICE DAILY. Tadalafil 20 MG Oral Tab Take by mouth. torsemide (DEMADEX) 10 MG Oral Tab Take 2 Tabs by mouth DAILY. No current facility-administered medications for this visit. Allergies Allergen Reactions Bee Sting Respiratory Reaction SOB, throat tightness Glipizide Other Burning pain in chest Ibuprofen [Aspartame-Ibuprofen] Other Mucinex Hives Bucks Other Social History Socioeconomic History Marital status: [...] file Gets together: Not on file Attends hindu service: Not on file Active member of [...] -trying to get permanent REVIEW OF SYSTEMS: ROS Objective PHYSICAL EXAM: VITALS: BP 120/76 (BP Location: Left arm, Patient Position: Sitting) | Pulse 82 | Temp 98.3 F(36.8 C) | Wt (!) 416 lb 12.8 oz (189.1 kg) | SpO2 100% | BMI 63.37 kg/m Body mass indexis 63.37 kg/m. Physical Exam Vitals signs reviewed. Constitutional: General: He is not in acute distress. Comments: Up 13 lb in 4 weeks Cardiovascular: Rate and Rhythm: Normal rate and regular rhythm. Pulmonary: Breath sounds: No wheezing or rales. Musculoskeletal: Right lower leg: Edema present. Left lower leg: Edema present. Psychiatric: Mood and Affect: Mood normal. ASSESSMENT / IMPRESSION: ICD-9-CM ICD-10-CM 1. Pulmonary arterial hypertension (HCC) and obesity the cause of his edema. The doctors have told him he should increase the meds but his local pharmacy said they have never given torsemide ?? So unless he got it from [place] unbeknownst to him he has not been taking it or at least not increased it. It was not in a bag of meds he brought but his mothers torsemide was but he said he not take it .I refilled his meds and sent fresh increases and will see him back in a week 416.8 I27.21 2. Morbid obesity (HCC) 278.01 E66.01 3. Type 2 diabetes mellitus with complication (HCC) no labs today because it makes no sense to checklabs if he not taking the diuretics . 250.90 E11.8 4. Anemia, unspecified type ? Due to the weight gain from fluid dilutional but [place] mentioned iron infusion 285.9 D64.9 Plan Author: Chong Oliveros MD 12/29/2018 20:13 documented in this encounter Plan of Treatment Date Type Specialty Care Team Description 01/29/2019 Office Visit Cardiology Jhoan Zepeda MD [address] [place] [id number] 02/08/2019 Office Visit Endocrinology Ynes Belle, [place] [address] [facility] [place] [address] Health Maintenance Due Date Last Done Comments MEDICARE ANNUAL WELLNESS 12/21/2017 12/21/2016, 03/02/2012 VISIT HEMOGLOBIN A1C 01/12/2019 10/12/2018, 07/13/2018, 04/10/2018, Additional history exists DEPRESSION SCREENING 03/09/2019 03/09/2018 Diabetic Eye Exam 03/31/2019 03/31/2018, 03/31/2018, 05/21/2015, Additional history exists LIPID DISORDER SCREENING 04/10/2019 04/10/2018, 09/15/2017, 06/11/2017, Additional history exists FOOT EXAM 07/14/2019 07/13/2018, 07/13/2018, 08/24/2017, Additional history exists URINE MICROALBUMIN 09/09/2019 09/08/2018, 10/06/2016, 09/11/2014, Additional history exists PNEUMOCOCCAL 0-64 YRS Completed [...] Problems Progress Blood Pressure Blood Pressure Hypertension 120/76 No Galshadi, < 140/90 (12/29/2018 Lise, 3:36 PM EDT) Note: Hypertension Care Plan Based [...] Educational Resources: National Heart, Lung, & Blood [place] http://nhlbi.nih.gov/hbp/index.html The DASH Diet Eating Plan http://www.nhlbi.nih.gov/health/health-topics/ topics/dash/ Academy of Nutrition & DIetetics http://eatright.org National Smoking Cessation Site http://smokefree.gov Blood Pressure < Blood Pressure 120/76 (12/29/2018 No Lise Davis, 140/90 3:36 PM EDT) Note: This is an individualized [...] my blood sugar results (including dextrose sticks). Doctor.com is safe and secure way for you [...] my blood sugar results (including dextrose sticks). Doctor.com is safe and secure way for you [...] better. Weight loss vs. 18 mo Lifestyle 9.2 (12/29/2018 3:36 PM No Lise Davis MD max (lbs) >= [...] in this encounter Visit Diagnoses Diagnosis Pulmonary arterial hypertension (HCC) - Primary Other chronic pulmonary heart diseases Morbid obesity (HCC) Morbid obesity Type 2 diabetes mellitus with complication (HCC) Anemia, unspecified type documented in this encounter Guarantor Name Account Type Relation to Date of Phone Billing Patient Address Trae Urbina Personal/Family 1975 [address] (Home) [place], [place] [phone] (Work) documented as of this encounter
--- OUTSIDE RECORDS SUMMARY | 2019-01-16 11:18 | XMS REPORT | Summary of Care ---
:1975 Author Organization [facility] Address [address] [place] [address] Care Team Providers Name Role Phone Lilli Chen RN Unavailable Chong Oliveros Primary Care Provider Reason for Visit Reason Comments Nasal Congestion pt states 2 days on nasal congestion w/ coughing and sneezing starting today. Encounter Details Date Type Department Care Team Description 01/09/2019 Office Visit [facility] Kandy Hyman, Acute URI (Primary Dx) Practice PA-C [address] [place] [address] [place] [address] [phone] Allergies Active Allergy Reactions Severity Noted Date Comments Bee Sting Respiratory Reaction 09/19/2013 SOB, throat tightness Glipizide Other 09/20/2007 Burning pain in chest Aspartame-Ibuprofen Other 10/02/2011 Mucinex Hives 03/02/2018 [place] Other 10/02/2011 documented as of this encounter (statuses as of 01/09/2019) Medications Medication Sig Dispensed Refills Start Date End Date Status HYDROXYPROPYL Place 2 Drops to 1 Bottle 0 02/14/2014 Active METHYLCELLULOSE the external eye (GENTEAL MILD TO DAILY NEEDED MODERATE) 0.3 % (2 drops in both Ophthalmic Solution eyes ever 3 hours as needed). loratadine take 1 tablet by 30 Tab 5 11/05/2014 Active (CLARITIN,ALAVERT) 10 mouth once daily MG Oral Tab Nystatin [id number] UNIT/GM 1 g by Apply 1 Bottle [...] Reported on 12/29/2018 4:04 PM allopurinol (ZYLOPRIM) 100 MG Take 1 Tab by mouth 60 Tab 5 12/29/2018 Active Oral Tab TWICE DAILY. rivaroxaban (XARELTO) 20 MG Oral Take 1 Tab by mouth 30 Tab 5 12/29/2018 Active Tab DAILY. Spironolactone 50 MG Oral Tab Take 1 Tab by mouth 60 Tab 1 12/29/2018 Active TWICE DAILY. torsemide (DEMADEX) 10 MG Oral Take 2 Tabs by mouth 60 Tab 1 12/29/2018 Active Tab DAILY. azithromycin (ZITHROMAX) 250 MG Take 2 pills on the 6 Tab 0 01/09/2019 Active Oral Tab first day and 1 pill each day for 4 days documented as of this encounter (statuses as of 01/09/2019) Active Problems Problem Noted Date Pulmonary arterial hypertension 11/28/2018 Depression 03/10/2012 BMI 70 and over, adult 08/28/2010 Gout 12/04/2007 Morbid obesity 04/28/2007 Type 2 diabetes mellitus with complication 04/28/2007 Hypertension 04/28/2007 Asthma 04/28/2007 Allergic Rhinitis 04/28/2007 Sleep apnea Overview: bipap documented as of this encounter (statuses as of 01/09/2019) Resolved Problems Problem Noted Date Resolved Date Wrist fracture 10/02/2011 Overview: R, open reduction and fixation documented as of this encounter (statuses as of 01/09/2019) Immunizations Name Administration Dates Next Due Influenza [...] Sign Reading Time Taken Comments Blood Pressure 128/78 01/09/2019 4:10 PM EST Pulse 81 01/09/2019 4:10 PM EST Temperature 36.4 01/09/2019 4:10 PM EST C (97.5 F) Respiratory Rate - - Oxygen Saturation 97% 01/09/2019 4:10 PM EST Inhaled Oxygen Concentration - - Weight 191.9 kg (423 lb) 01/09/2019 4:10 PM EST Height 172.7 cm (5' 8") 01/09/2019 4:10 PM EST Body Mass Index 64.32 01/09/2019 4:10 PM EST documented in this encounter Patient Instructions Patient InstructionsDoKandy melissa PA-C - 01/09/2019 4:00 PM ESTEscribed Zpak , take with food Rest, gargle with warm salt water Push water, soup, juice, tea with honey/lemon Avoid creamy foods and drinks OTC Tylenol/Ibuprofen for fever/pain Call if not improving or with any questions or concerns documented in this encounter Progress Notes Kandy Dougherty PA-C - 01/09/2019 4:00 PM EST PATIENT: Trae Urbina : 1975 DATE OF SERVICE: 01/09/2019 REFERRING PRACTITIONER: Immanuel PRIMARY CARE PROVIDER: Chong Oliveros CHIEF COMPLAINT: Chief Complaint Patient presents with Nasal Congestion pt states 2 days on nasal congestion w/ coughing and sneezing starting today. Subjective HISTORY OF PRESENT ILLNESS: Trae Urbina is a 44-y.o. male who presents with nasal congestion x 2 days coughing, sneezing started this morning Uses continuous oxygen 3L Denies fever, chills, nausea, vomiting, diarrhea, chest pains Past Medical History: Diagnosis Date Allergic Rhinitis 04/28/2007 Asthma 04/28/2007 Depression Diabetes 04/28/2007 Gout Hypertension 04/28/2007 Morbid obesity (HCC) 04/28/2007 Pulmonary arterial hypertension (HCC) 11/28/2018 Pulmonary emboli (HCC) 2019 Sleep apnea bipap 14/12 Wrist fracture R, open reduction and fixation No past surgical history on file. Family History Problem Relation Age of Onset [...] Take 1 Tab by mouth EVERY BEDTIME. azithromycin (ZITHROMAX) 250 MG Oral Tab Take 2 pills on the first day and 1 pill each day for 4 days BD ULTRA-FINE PEN NEEDLES 29G X 12.7MM [...] 15 mg by mouth EVERY BEDTIME. Nystatin [id number] UNIT/GM Apply externally Powder 1 g by [...] in chest Ibuprofen [Aspartame-Ibuprofen] Other Mucinex Hives [place] Other Social History Socioeconomic History Marital status: [...] file Gets together: Not on file Attends jewish service: Not on file Active member of [...] -trying to get permanent REVIEW OF SYSTEMS: Skin: negative skin lesions Eyes: negative visual blurring Ears/Nose/Throat: positive rhinorrhea, sinus pressure, post nasal drip Respiratory: positive cough Cardiovascular: negative chest pain Gastrointestinal: negative abdominal pain, constipation, diarrhea, nausea or vomiting Genitourinary: negative burning on urination, dysuria Musculoskeletal: negative arthritis/joint pain Neurologic: negative numbness or tingling of feet or hands Psychiatric: positive depression Hematologic/Lymphatic/Immunologic: positive allergies Endocrine: positive diabetes II Objective PHYSICAL EXAMINATION: VITALS: BP 128/78 (BP Location: Left arm, Patient Position: Sitting) | Pulse 81 | Temp 97.5 F(36.4 C) | Ht 5' 8" (1.727 m) | Wt (!) 423 lb (191.9 kg) | SpO2 97% | BMI 64.32 kg/m Body mass index is 64.32 kg/m. On continuous O2 3L General appearance: alert, mild distress, cooperative, oriented times 3, morbidly obese Skin: Skin color, texture, turgor normal. No rashes or lesions. Head: Normocephalic. No masses, lesions, tenderness or abnormalities Eyes: conjunctivae/corneas clear. PERRL, EOM's intact. Ears: positive findings: TMs bulging bilaterally Nose/Sinuses: positive findings: mucosa erythematous and swollen, clear rhinorrhea Oropharynx: positive findings: mild oropharyngeal erythema, post nasal drip present Neck: Neck supple, FROM. No cervical or supraclavicular adenopathy. Lungs: Lungs clear. Chest symmetrical. Normal breath sounds. Heart: RRR. No murmur, clicks or gallops. No peripheral edema . IMPRESSION: ICD-9-CM ICD-10-CM 1. Acute URI 465.9 J06.9 Plan PLAN: Escribed Zpak, take with food Rest, gargle with warm salt water Push water, soup, juice, tea with honey/lemon Avoid creamy foods and drinks OTC Tylenol/Ibuprofen for fever/pain Call if not improving or with any questions or concerns Author: Kandy Dougherty PA-C 01/09/2019 16:16 documented in this encounter Plan of Treatment Date Type Specialty Care Team Description 01/29/2019 Office Visit Cardiology Jhoan Zepeda MD [facility] [place] [address] 02/08/2019 Office Visit Endocrinology Ynes Belle FNP [address] [facility] [place] [address] 02/22/2019 Office Visit Family Practice Chong Oliveros MD [address] [place] [address] [phone] Health Maintenance Due Date Last Done Comments [...] Problems Progress Blood Pressure Blood Pressure Hypertension 128/78 No Susan, < 140/90 (01/09/2019 Lise, 4:10 PM EST) Note: Hypertension Care Plan Based on the [...] Educational Resources. record my blood pressure results. [employer] [place] is safe and secure way for you [...] Educational Resources: National Heart, Lung, & Blood Wallace http://nhlbi.nih.gov/hbp/index.html The DASH Diet Eating Plan http://www.nhlbi.nih.gov/health/health-topics/ topics/dash/ Academy of Nutrition & DIetetics http://eatright.org National Smoking Cessation Site http://smokefree.gov Blood Pressure < Blood Pressure 128/78 (01/09/2019 No Lise Davis, 140/90 4:10 PM EST) Note: This is an individualized treatment (blood pressure) goal for Trae Urbina: Displayed above (on the left) is your goal for blood pressure control. Your most recent blood pressure is also shown above, on the right. You should try to achieve blood pressures that are lower than your goal listed above (on the left). Depression screen (PHQ-9) total score < 5 Depression Lise Lima MD Note: This is an individualized treatment (depression) goal for Trae Urbina: Displayed above is your goal for a depression screening (PHQ-9) score that would indicate good control of your depression. Diabetes < 7.0 Diabetes Type 2 diabetes 10.9 (10/12/2018 No Galshadi, mellitus with 3:02 PM EDT) MD Lise [...] my blood sugar results (including dextrose sticks). [employer] is safe and secure way for [...] individualized treatment (diabetes control, HgbA1C) goal for Traetatiana Urbina: Displayed above is your progress towards your HgbA1C goal. Your goal is shown above (on the left); your most recent HgbA1C is shown on the right. Note that lower numbers are better. Weight loss vs. 18 mo Lifestyle 3 (01/09/2019 4:10 PM Lise Lima MD max (lbs) >= 10 EST) Note: This is an individualized lifestyle goal for Trae Murillo Carlitos: Your body mass index (BMI) is more [...] symptoms of depression. Keep immunizations current Lifestyle Lise Lima MD Note: This is [...] filedocumented in this encounter Visit Diagnoses Diagnosis Acute URI - Primary Acute upper respiratory infections of unspecified site documented in this encounter Guarantor Name Account Type Relation to Date of Phone Billing Patient Address Trae Urbina Personal/Family 1975 [address] (Home) [place], [place] [phone] (Work) documented as of this encounter Advance Directives Type Date Recorded Patient Backroom Associate Explanation Advance Directives 01/04/2019 8:38 AM HEALTH CARE PROXY
--- NOTE | 2019-01-16 13:25 | ED ---
Lower Extremity - HPI Summary HPI Summary: This patient is a 44 year old M presenting to ED with a chief complaint of bilateral lower extremity erythema and swelling since weeks ago. Patient has pulmonary hypertension and he ran out of his HTN medication weeks ago, so he thought this was due to being off medication. However, he got his medications refilled and the symptoms persisted. This morning, patient woke up with facial erythema swelling and tongue swelling. He states it is hard to swallow. The erythema spreads to his back and shoulders. He has never had these symptoms before. Patient has a history of pulmonary embolism and is currently on blood thinners. He did not run out of blood thinners and has been taking them the whole time. He is on C-PAP at night. The patient rates the pain 9/10 in severity. Symptoms aggravated by nothing. Symptoms alleviated by nothing. Patient denies fever, chills, chest pain, shortness of breath. Medications reviewed. Allergies noted. Patient is not taking Benadryl. - History of Current Complaint Chief Complaint: EDExtremityLower Stated Complaint: SWELLING IN LEG AND FACE Time Seen by Provider: 01/16/19 13:16 Hx Obtained From: Patient Onset of Pain: Days - Swelling and erythema started weeks ago Onset/Duration: Worse Since Severity Initially: Severe Severity Currently: Severe Pain Intensity: 9 Pain Scale Used: 0-10 Numeric Timing: Constant, Lasting Weeks Location: Is Diffuse Associated Signs And Symptoms: Positive: Negative - Chills, chest pain, shortness of breath, Swelling, Redness. Negative: Fever Aggravating Factor(s): Nothing Alleviating Factor(s): Nothing - Allergies/Home Medications Allergies/Adverse Reactions: Allergies Allergy/AdvReac Type Severity Reaction Status Date / Time dextromethorphan Allergy Nausea Verified 01/16/19 11:15 [From Mucinex DM] guaifenesin [From Mucinex DM] Allergy Nausea Verified 01/16/19 11:15 ibuprofen [From Motrin] Allergy rash/kidneys Verified 01/16/19 11:15 shut down nitroglycerin Allergy See Comment Verified 01/16/19 11:17 orange oil Allergy hives Uncoded 01/16/19 11:15 diff breathing Home Medications: Home Medications Dextran 70/Hypromellose/Pf [Genteal Tears Moderate 0.1-0.3 %] 2 drop BOTH EARS Q3H PRN 01/16/19 [History Confirmed 01/16/19] Insulin GLARGINE(*) [Lantus(*)] 40 units SUBCUT QPM 01/16/19 [History Confirmed 01/16/19] Insulin Glargine,Hum.rec.anlog [Lantus Solostar 5x3 ML PENS] 60 units SUBCUT BID 01/16/19 [History Confirmed 01/16/19] PMH/Surg Hx/FS Hx/Imm Hx Endocrine/Hematology History: Reports: Hx Diabetes Denies: Hx Thyroid Disease, Hx Anemia, Hx Unexplained Bleeding Cardiovascular History: Reports: Hx Hypertension Denies: Hx Aneurysm, Hx Angina, Hx Auto Implanted Cardiovert Defib, Hx Cardiac Arrest, Hx Congenital Heart Disease, Hx Congestive Heart Failure, Hx Coronary Artery Disease, Hx Deep Vein Thrombosis, Hx Embolism, Hx Hypercholesterolemia, Hx Hypotension, Hx Myocardial Infarction, Hx Pacemaker/ICD , Hx Peripheral Vascular Disease, Hx Rheumatic Fever, Hx Syncope, Hx Valvular Heart Disease, Other Cardiovascular Problems/Disorders Respiratory History: Reports: Hx Asthma, Hx Pulmonary Embolism - currently on xarelto, Hx Sleep Apnea - uses cpap, Other Respiratory Problems/Disorders - pulmonary HTN, obstructive hypoventilation Denies: Hx Chronic Obstructive Pulmonary Disease (COPD), Hx Cystic Fibrosis, Hx Lung Cancer, Hx Pleural Effusion, Hx Pneumonia, Hx Pulmonary Edema, Hx Seasonal Allergies GI History: Denies: Hx Cirrhosis, Hx Crohn's Disease, Hx Diverticulosis, Hx Gall Bladder Disease, Hx Gastroesophageal Reflux Disease, Hx Gastrointestinal Bleed, Hx Hiatal Hernia, Hx Irritable Bowel, Hx Jaundice, Hx Obstructive Bowel, Hx Ileostomy, Hx Pyloric Stenosis, Hx Ulcer, Other GI Disorders History: Reports: Other Problems/Disorders - kidney "issues" when he takes ibuprofen Denies: Hx Acute Renal Failure, Hx Benign Prostatic Hyperplasia, Hx Chronic Renal Failure, Hx Dialysis, Hx Kidney Infection, Hx Kidney Stones, Hx Renal Disease Musculoskeletal History: Reports: Hx Gout Denies: Hx Arthritis, Hx Back Problems, Hx Bursitis, Hx Congenital Bone Abnormalities, Hx Fibromyalgia, Hx Osteoporosis, Hx Scoliosis, Hx Tendonitis, Other Musculoskeletal History Sensory History: Reports: Hx Contacts or Glasses Denies: Hx Cataracts, Hx Eye Injury, Hx Eye Prosthesis, Hx Glaucoma, Hx Legally Blind, Hx Macular Degeneration, Hx Vision Problem, Hx Deafness, Hx Hearing Aid, Hx Hearing Problem, Other Sensory Impairments Opthamlomology History: Reports: Hx Contacts or Glasses Denies: Hx Cataracts, Hx Eye Injury, Hx Eye Prosthesis, Hx Glaucoma, Hx Legally Blind, Hx Macular Degeneration, Hx Vision Problem, Other Sensory Impairments Neurological History: Reports: Other Neuro Impairments/Disorders - previous diagnosis of vertigo Denies: Hx Dementia, Hx Developmental Delay, Hx Headaches, Hx Migraine, Hx Nerve Disease, Hx Seizures, Hx Spinal Cord Injury, Hx Transient Ischemic Attacks (TIA) Psychiatric History: Reports: Hx Anxiety, Hx Depression, Hx Community Mental Health Tx, Hx Suicide Attempt Denies: Hx Attention Deficit Hyperactivity Disorder, Hx Autism, Hx Eating Disorder, Hx Panic Disorder, Hx Post Traumatic Stress Disorder, Hx Inpatient Treatment, Hx Schizophrenia, Hx Bipolar Disorder, Hx of Violent Episodes Against Others - Cancer History Cancer Type, Location and Year: none - Surgical History Surgery Procedure, Year, and Place: RIGHT WRIST FRACTURE, SCREWS PLACED. Hx Anesthesia Reactions: No - Immunization History Date of Tetanus Vaccine: UNKNOWN Infectious Disease History: No Infectious Disease History: Denies: Hx Clostridium Difficile, Hx Hepatitis, Hx Human Immunodeficiency Virus (HIV), Hx of Known/Suspected MRSA, Hx Shingles, Hx Tuberculosis, History Other Infectious Disease, Traveled Outside the [place] in Last 30 Days - Family History Known Family History: Positive: Hypertension, Diabetes, Other - cancer Negative: Cardiac Disease - Social History Alcohol Use: Occasionally Hx Substance Use: No Substance Use Type: Reports: None Hx Tobacco Use: No Smoking Status (MU): Never Smoked Tobacco Have You Smoked in the Last Year: No Review of Systems Negative: Fever, Chills ENT: Other - Tongue swelling Negative: Chest Pain Negative: Shortness Of Breath Musculoskeletal: Other - Bilateral LE swelling and erythema Skin: Other - Facial erythema and swelling All Other Systems Reviewed And Are Negative: Yes Physical Exam - Summary Physical Exam Summary: Constitutional: Well-developed, Well-nourished, Alert. (-) Distressed Skin: Chronic skin changes present to bilateral LE. HENT: Mild erythema to the cheeks, no oral involvement or stridor Eyes: Conjunctiva normal Neck: Musculoskeletal ROM normal neck. (-) JVD, (-) Stridor, (-) Tracheal deviation Cardio: Rhythm regular, rate normal, Heart sounds normal; Intact distal pulses; Radial pulses are 2+ and symmetric. (-) Murmur Pulmonary/Chest wall: Effort normal. (-) Respiratory distress, (-) Wheezes, (-) Rales Abd: Soft, (-) tenderness, (-) Distension, (-) Guarding, (-) Rebound Musculoskeletal: Mild erythema to back with raised rash. Bilateral LE swollen, no edema. Bilateral LE erythema, tenderness, warmth. Lymph: (-) Cervical adenopathy Neuro: Alert, Oriented x3 Psych: Mood and affect Normal Triage Information Reviewed: Yes Vital Signs On Initial Exam: Initial Vitals Temp Pulse Resp BP Pulse Ox 98.5 F 72 20 132/78 100 01/16/19 11:09 01/16/19 11:09 01/16/19 11:09 01/16/19 11:09 01/16/19 11:09 Vital Signs Reviewed: Yes Procedures - Sedation Patient Received Moderate/Deep Sedation with Procedure: No Diagnostics - Vital Signs Vital Signs Temp Pulse Resp BP Pulse Ox 01/16/19 12:54 99.1 F 76 24 133/70 100 01/16/19 11:09 98.5 F 72 20 132/78 100 - Laboratory Result Diagrams: 01/16/19 13:57 01/16/19 13:57 Lab Statement: Any lab studies that have been ordered have been reviewed, and results considered in the medical decision making process. - Ultrasound DVT Ultrasound Interpretation Completed By: Radiologist Summary of Ultrasound Findings: LIMITED STUDY, NO EVIDENCE FOR DEEP VENOUS THROMBOSIS. Dr. Kerns has reviewed this radiology report. Re-Evaluation - Re-Evaluation First Eval Re-Evaluation Time: 15:00 Comment: Discussed results with patient. Patient will be discharged home with dx of rash. Patient understands and agrees with this plan. Lower Extremity Course/Dx - Course Course Of Treatment: Patient is here to separate complaints. Patient's had lower extremity swelling bilaterally for the past couple of weeks. Patient's had chronic skin changes to his legs. Patient's evidence of cellulitis. Patient negative ultrasound for DVT. In addition, patient's had a rash on his face and back that is consistent with a contact dermatitis. Patient was given Benadryl. Patient has diabetes so steroids were not given. - Diagnoses Provider Diagnoses: Rash Discharge ED - Sign-Out/Discharge Documenting (check all that apply): Patient Departure - Discharge - Discharge Plan Condition: Stable Disposition: HOME Prescriptions: Acetaminophen with Codeine [Acetaminophen-Cod #3 Tablet] 1 each PO Q8HR PRN #12 tablet MDD 3 tablets PRN Reason: Pain - Severe Patient Education Materials: Acute Rash (ED) Referrals: Chong Oliveros MD [Primary Care Provider] - 3 Days Additional Instructions: Follow-up with your primary care physician in 1-3 days. Take Benadryl 25mg every 6 hours as needed for itching. Buy compression stockings for your legs. Come back for worsening swelling, pain or other concerning symptoms. - Billing Disposition and Condition Condition: STABLE Disposition: Home - Attestation Statements Document Initiated by Rhoda: Yes Documenting Scribe: Yvan Harrell Provider For Whom Rhoda is Documenting (Include Credential): Oswald Kerns MD Scribe Attestation: I, Yvan Harrell, scribed for Oswald Kerns MD on 01/16/19 at 1514. Scribe Documentation Reviewed: Yes Provider Attestation: The documentation as recorded by the Yvan colon accurately reflects the service I personally performed and the decisions made by me, Oswald Kerns MD Status of Scribe Document: Viewed
[2019-01-16] MEDS ORDERED: diPHENhydraMINE PO* 25 MG PO ONE (13:30)
[2019-01-16 14:14] LABS: ABS Basophils 0.1 10^3/ul (0-0.2); ABS Eosinophils 0.6 10^3/ul (0-0.6); ABS Lymphocytes 0.8 10^3/ul (1.0-4.8); ABS Monocytes 0.4 10^3/ul (0-0.8); ABS Neutrophils 6.8 10^3/ul (1.5-7.7); Eosinophil % 7.2 %; Hematocrit 39 % (42-52); Hemoglobin 12.5 g/dL (14.0-18.0); Lymphocyte % 8.8 %; Mean Corpuscular HGB Conc 32 g/dL (31-36); Mean Corpuscular Hemoglobin 27 pg (27-31); Mean Corpuscular Volume 84 fL (80-94); Mean Platelet Volume 7.5 fL (7.4-10.4); Platelet Count 207 10^3/uL (150-450); Red Blood Count 4.61 10^6 /uL (4.18-5.48); Red Cell Distribution Width 16 % (10-15); White Blood Count 8.7 10^3/uL (3.5-10.8)
[2019-01-16 14:51] LABS: Albumin 3.9 g/dL (3.2-5.2); Albumin/Globulin Ratio 1.7 (1-3); BUN/Creatinine Ratio 19.2 (8-20); Calcium 9.1 mg/dL (8.6-10.3); EGFR African American 100.3 (>60); EGFR Non-African American 82.9 (>60); Globulin 2.3 g/dL (2-4); Potassium 3.9 mmol/L (3.5-5.0); Total Bilirubin 0.5 mg/dL (0.2-1.0); Total Protein 6.2 g/dL (6.4-8.9)
[2019-01-16 15:36] VITALS: BP 102/55
== END 2019-01-16 15:35 | disposition home or self-care (01) ==
LOC: ED 11:07
DX: R21 Rash and other nonspecific skin eruption (principal); M79.89 Other specified soft tissue disorders; E11.9 Type 2 diabetes mellitus without complications; Z79.4 Long term (current) use of insulin; I27.20 Pulmonary hypertension, unspecified; Z86.711 Personal history of pulmonary embolism; Z79.01 Long term (current) use of anticoagulants; G47.30 Sleep apnea, unspecified; Z88.6 Allergy status to analgesic agent; Z88.8 Allergy status to other drugs, medicaments and biological substances; Z91.09 Other allergy status, other than to drugs and biological substances
CPT/HCPCS: 36415; 80053; 85025; 93970; 99282; A9270-GY

== ENCOUNTER 2019-01-18 10:31 | Emergency (ER) | payer MEDICARE ==
--- NOTE | 2019-01-18 11:47 | ED ---
Allergic Reaction/Systemic - HPI Summary HPI Summary: This patient is a 44 year old M presenting to [facility] with a chief complaint of leg pain since 3 days ago. The patient rates the pain 10/10 in severity. Symptoms aggravated by nothing. Symptoms alleviated by nothing. Patient reports left ankle open wound, right foot blister, general body burning sensation, rashes, and facial swelling. Pt states the rashes appeared spontaneously. Pt denies any fever, chills, erythema of eyes, sore throat, CP, SOB, cough, abdominal pain, N/V, dysuria, hematuria, myalgia, edema, or dizziness. Pt has diabetes, eczema. - History of Current Complaint Chief Complaint: EDAllergicReaction Time Seen by Provider: 01/18/19 11:40 Hx Obtained From: Patient Onset/Duration: Sudden Onset, Started days ago - 3 Timing: Constant, Lasting Days - 3 Severity Initially: Moderate Severity Currently: Moderate Pain Intensity: 10 Pain Scale Used: 0-10 Numeric Aggravating Factor(s): Nothing Alleviating Factor(s): Nothing Associated Signs And Symptoms: Positive: Other: - positive - leg pain, left ankle open wound, right foot blister, general body burning sensation, rashes, and facial swelling. negative - any fever, chills, erythema of eyes, sore throat , SOB, cough, abdominal pain, V, dysuria, hematuria, myalgia, edema, or dizziness.. Negative: Chest Pain, Nausea - Allergies/Home Medications Allergies/Adverse Reactions: Allergies Allergy/AdvReac Type Severity Reaction Status Date / Time dextromethorphan Allergy Nausea Verified 01/18/19 10:37 [From Mucinex DM] guaifenesin [From Mucinex DM] Allergy Nausea Verified 01/18/19 10:37 ibuprofen [From Motrin] Allergy rash/kidneys Verified 01/18/19 10:37 shut down nitroglycerin Allergy See Comment Verified 01/18/19 10:37 orange oil Allergy hives Uncoded 01/16/19 11:15 diff breathing Home Medications: Home Medications Dextran/Hypromellose/Glycerin [Genteal Tears 0.1%-0.2%-0.3%] 2 drop BOTH EYES Q3H PRN 01/18/19 [History Confirmed 01/18/19] PMH/Surg Hx/FS Hx/Imm Hx Previously Healthy: No Endocrine/Hematology History: Reports: Hx Diabetes Denies: Hx Thyroid Disease, Hx Anemia, Hx Unexplained Bleeding Cardiovascular History: Reports: Hx Hypertension Denies: Hx Aneurysm, Hx Angina, Hx Auto Implanted Cardiovert Defib, Hx Cardiac Arrest, Hx Congenital Heart Disease, Hx Congestive Heart Failure, Hx Coronary Artery Disease, Hx Deep Vein Thrombosis, Hx Embolism, Hx Hypercholesterolemia, Hx Hypotension, Hx Myocardial Infarction, Hx Pacemaker/ICD , Hx Peripheral Vascular Disease, Hx Rheumatic Fever, Hx Syncope, Hx Valvular Heart Disease, Other Cardiovascular Problems/Disorders Respiratory History: Reports: Hx Asthma, Hx Pulmonary Embolism - currently on xarelto, Hx Sleep Apnea - uses cpap, Other Respiratory Problems/Disorders - pulmonary HTN, obstructive hypoventilation Denies: Hx Chronic Obstructive Pulmonary Disease (COPD), Hx Cystic Fibrosis, Hx Lung Cancer, Hx Pleural Effusion, Hx Pneumonia, Hx Pulmonary Edema, Hx Seasonal Allergies GI History: Denies: Hx Cirrhosis, Hx Crohn's Disease, Hx Diverticulosis, Hx Gall Bladder Disease, Hx Gastroesophageal Reflux Disease, Hx Gastrointestinal Bleed, Hx Hiatal Hernia, Hx Irritable Bowel, Hx Jaundice, Hx Obstructive Bowel, Hx Ileostomy, Hx Pyloric Stenosis, Hx Ulcer, Other GI Disorders History: Reports: Other Problems/Disorders - kidney "issues" when he takes ibuprofen Denies: Hx Acute Renal Failure, Hx Benign Prostatic Hyperplasia, Hx Chronic Renal Failure, Hx Dialysis, Hx Kidney Infection, Hx Kidney Stones, Hx Renal Disease Musculoskeletal History: Reports: Hx Gout Denies: Hx Arthritis, Hx Back Problems, Hx Bursitis, Hx Congenital Bone Abnormalities, Hx Fibromyalgia, Hx Osteoporosis, Hx Scoliosis, Hx Tendonitis, Other Musculoskeletal History Sensory History: Reports: Hx Contacts or Glasses Denies: Hx Cataracts, Hx Eye Injury, Hx Eye Prosthesis, Hx Glaucoma, Hx Legally Blind, Hx Macular Degeneration, Hx Vision Problem, Hx Deafness, Hx Hearing Aid, Hx Hearing Problem, Other Sensory Impairments Opthamlomology History: Reports: Hx Contacts or Glasses Denies: Hx Cataracts, Hx Eye Injury, Hx Eye Prosthesis, Hx Glaucoma, Hx Legally Blind, Hx Macular Degeneration, Hx Vision Problem, Other Sensory Impairments Neurological History: Reports: Other Neuro Impairments/Disorders - previous diagnosis of vertigo Denies: Hx Dementia, Hx Developmental Delay, Hx Headaches, Hx Migraine, Hx Nerve Disease, Hx Seizures, Hx Spinal Cord Injury, Hx Transient Ischemic Attacks (TIA) Psychiatric History: Reports: Hx Anxiety, Hx Depression, Hx Community Mental Health Tx, Hx Suicide Attempt Denies: Hx Attention Deficit Hyperactivity Disorder, Hx Autism, Hx Eating Disorder, Hx Panic Disorder, Hx Post Traumatic Stress Disorder, Hx Inpatient Treatment, Hx Schizophrenia, Hx Bipolar Disorder, Hx of Violent Episodes Against Others - Cancer History Cancer Type, Location and Year: none - Surgical History Surgical History: Yes Surgery Procedure, Year, and Place: RIGHT WRIST FRACTURE, SCREWS PLACED. Hx Anesthesia Reactions: No - Immunization History Date of Tetanus Vaccine: UNKNOWN Infectious Disease History: No Infectious Disease History: Denies: Hx Clostridium Difficile, Hx Hepatitis, Hx Human Immunodeficiency Virus (HIV), Hx of Known/Suspected MRSA, Hx Shingles, Hx Tuberculosis, History Other Infectious Disease, Traveled Outside the [place] in Last 30 Days - Family History Known Family History: Positive: Hypertension, Diabetes, Other - cancer Negative: Cardiac Disease - Social History Alcohol Use: Occasionally Hx Substance Use: No Substance Use Type: Reports: None Hx Tobacco Use: No Smoking Status (MU): Never Smoked Tobacco Have You Smoked in the Last Year: No Review of Systems Constitutional: Other - positive - general body burning sensation Negative: Fever, Chills Negative: Erythema Negative: Sore Throat Negative: Chest Pain Negative: Shortness Of Breath, Cough Negative: Abdominal Pain, Vomiting, Nausea Negative: dysuria, hematuria Musculoskeletal: Other - positive - leg pain, facial swelling Negative: Myalgia, Edema Skin: Other - positive - left ankle open wound, right foot blister Positive: Rash Neurological: Other - negative - dizziness All Other Systems Reviewed And Are Negative: Yes Physical Exam - Summary Physical Exam Summary: Constitutional: Well-developed, Well-nourished, Alert. (-) Distressed Skin: Warm, Dry. Dry scaly patchy rash over upper and lower extremities and back. No hives. Quarter sized sore on medial ankle. Mildly warm left lower extremity. Venous stasis skin changes lower extremities. HENT: Normocephalic; Atraumatic Eyes: Conjunctiva normal Neck: Musculoskeletal ROM normal neck. (-) JVD, (-) Stridor, (-) Tracheal deviation Cardio: Rhythm regular, rate normal, Heart sounds normal; Intact distal pulses; The pedal pulses are 2+ and symmetric. Radial pulses are 2+ and symmetric. (-) Murmur Pulmonary/Chest wall: Effort normal. (-) Respiratory distress, (-) Wheezes, (-) Rales Abd: Soft, (-) tenderness, (-) Distension, (-) Guarding, (-) Rebound Musculoskeletal: (-) Edema Lymph: (-) Cervical adenopathy Neuro: Alert, Oriented x3 Psych: Mood and affect Normal Triage Information Reviewed: Yes Vital Signs On Initial Exam: Initial Vitals Temp Pulse Resp BP Pulse Ox 99.4 F 75 16 150/78 100 01/18/19 10:33 01/18/19 10:33 01/18/19 10:33 01/18/19 10:33 01/18/19 10:33 Vital Signs Reviewed: Yes Procedures - Sedation Patient Received Moderate/Deep Sedation with Procedure: No Diagnostics - Vital Signs Vital Signs Temp Pulse Resp BP Pulse Ox 01/18/19 10:33 99.4 F 75 16 150/78 100 - Laboratory Result Diagrams: 01/18/19 11:52 01/18/19 11:51 Lab Statement: Any lab studies that have been ordered have been reviewed, and results considered in the medical decision making process. - EKG 1149 Cardiac Rate: NL - 75 BPM EKG Rhythm: Sinus Rhythm Summary of EKG Findings: EKG at 1149 shows 75 BPM, sinus rhythm, TWI V1-V2 Allergic Reaction Course/Dx - Course Course Of Treatment: This patient is a 44 year old M presenting to [facility] with a chief complaint of leg pain since 3 days ago. The patient rates the pain 10/10 in severity. Symptoms aggravated by nothing. Symptoms alleviated by nothing. Patient reports left ankle open wound, right foot blister, general body burning sensation, rashes, and facial swelling. Pt states the rashes appeared spontaneously. Pt denies any fever, chills, erythema of eyes, sore throat, CP, SOB, cough, abdominal pain, N/V, dysuria, hematuria, myalgia, edema, or dizziness. Pt has diabetes, eczema. Physical exam shows dry scaly patchy rash over upper and lower extremities and back, no hives, quarter sized sore on medial ankle, mildly warm left lower extremity, venous stasis skin changes lower extremities. Lab results show RDW 16, absolute lymphs 0.8, absolute Eos 0.9, chloride 100, AST 10. EKG at 1149 shows 75 BPM, sinus rhythm, TWI V1-V2. During ED course, pt was given Keflex and Deltasone. Pt will be discharged. - Diagnoses Provider Diagnoses: Foot ulcer, Dermatitis Discharge ED - Sign-Out/Discharge Documenting (check all that apply): Patient Departure - discharge - Discharge Plan Condition: Stable Disposition: HOME Prescriptions: Cephalexin CAP* [Keflex CAP*] 500 mg PO QID #20 cap predniSONE TAB* [Deltasone TAB*] 50 mg PO DAILY #4 tab Patient Education Materials: Dermatitis (ED) Referrals: Chong Oliveros MD [Primary Care Provider] - 3 Days Chandler Harris MD [Medical Doctor] - 1 Day Additional Instructions: Follow up with your primary care provider within [address] Harris in 1 day. Return to ED for any new or worsening symptoms. - Attestation Statements Document Initiated by Marysolibe: Yes Documenting Scribe: Kirk Thompson Provider For Whom Rhoda is Documenting (Include Credential): Dr. Facundo Nguyen MD Scribe Attestation: Kirk Luna, scribed for Dr. Facundo Nguyen MD on 01/18/19 at 1259. Status of Scribe Document: Ready
[2019-01-18 12:08] LABS: ABS Eosinophils 0.9 10^3/ul (0-0.6); ABS Lymphocytes 0.8 10^3/ul (1.0-4.8); ABS Monocytes 0.4 10^3/ul (0-0.8); Eosinophil % 9.9 %; Hematocrit 42 % (42-52); Lymphocyte % 8.8 %; Mean Corpuscular HGB Conc 34 g/dL (31-36); Mean Corpuscular Hemoglobin 28 pg (27-31); Mean Corpuscular Volume 83 fL (80-94); Mean Platelet Volume 7.5 fL (7.4-10.4); Platelet Count 210 10^3/uL (150-450); Red Blood Count 5.01 10^6 /uL (4.18-5.48); Red Cell Distribution Width 16 % (10-15); White Blood Count 9.2 10^3/uL (3.5-10.8)
[2019-01-18 12:21] LABS: Troponin I 0.01 ng/mL (<0.03)
[2019-01-18 12:22] LABS: Albumin/Globulin Ratio 1.4 (1-3); Calcium 9.5 mg/dL (8.6-10.3); EGFR African American 91.7 (>60); EGFR Non-African American 75.8 (>60); Globulin 2.8 g/dL (2-4); Potassium 4.1 mmol/L (3.5-5.0); Total Bilirubin 0.7 mg/dL (0.2-1.0); Total Protein 6.8 g/dL (6.4-8.9)
[2019-01-18 12:35] LABS: TSH (Thyroid Stimulating Horm) 3.08 mcIU/mL (0.34-5.60)
[2019-01-18] MEDS: predniSONE TAB* 20 MG PO ONE (13:12)
[2019-01-18] MEDS: Cephalexin CAP* 500 MG PO ONE (13:12)
[2019-01-18 13:23] VITALS: BP 122/65
== END 2019-01-18 13:29 | disposition home or self-care (01) ==
LOC: ED 10:31
DX: L97.329 Non-pressure chronic ulcer of left ankle with unspecified severity (principal); L30.9 Dermatitis, unspecified; I10 Essential (primary) hypertension; I26.99 Other pulmonary embolism without acute cor pulmonale; F41.9 Anxiety disorder, unspecified; F32.9 Major depressive disorder, single episode, unspecified; Z79.01 Long term (current) use of anticoagulants; Z88.6 Allergy status to analgesic agent; Z88.8 Allergy status to other drugs, medicaments and biological substances
CPT/HCPCS: 36415; 80053; 83605; 83735; 83880; 84443; 84484; 85025; 93005; 99283; A9270-GY; J7512

== ENCOUNTER 2019-03-29 19:07 | Emergency (ER) | payer MEDICARE, MEDICAID ==
--- OUTSIDE RECORDS SUMMARY | 2019-03-29 19:28 | XMS REPORT | Summary of Care ---
:1975 Author Organization [facility] Address [address] [facility] [place] [address] Care Team Providers Name Role Phone Lilli Chen RN Unavailable Chong Oliveros Primary Care Provider Reason for Visit Reason Comments Follow Up 2 month follow up Encounter Details Date Type Department Care Team Description 01/30/2019 Office Visit Kimmy Falcon PA Pulmonary arterial hypertension (HCC) (Primary Dx); Cardiology [facility] Essential hypertension; [address] [facility] [place] [address] Morbid obesity with BMI of 60.0-69.9, adult ([facility]) [place], [place] [id number] Allergies Active Allergy Reactions Severity Noted Date Comments Bee Sting Respiratory Reaction 09/19/2013 SOB, throat tightness Glipizide Other 09/20/2007 Burning pain in chest Aspartame-Ibuprofen Other 10/02/2011 Mucinex Hives 03/02/2018 [place] Other 10/02/2011 documented as of this encounter (statuses as of 01/30/2019) Medications Medication Sig Dispensed Refills Start Date End Date Status HYDROXYPROPYL Place 2 Drops to 1 Bottle 0 02/14/2014 Active METHYLCELLULOSE the external eye (GENTEAL MILD TO DAILY NEEDED MODERATE) 0.3 % (2 drops in both Ophthalmic Solution eyes ever 3 hours as needed). loratadine take 1 tablet by 30 Tab 5 11/05/2014 Active (CLARITIN,ALAVERT) 10 mouth once daily MG Oral Tab Nystatin 914096 UNIT/GM 1 g by Apply 1 Bottle [...] 12/29/2018 Active MG Oral Tab mouth DAILY. Insulin Syringe-Needle 1 Syringe by 100 Each 0 01/12/2019 Active U-100 30G X 3/16" 1 ML Does not apply Does not apply route TWICE MiscIndications: Type DAILY. 2 diabetes mellitus with complication (HCC) Insulin Glargine Inject 60 Units 25 Each 1 01/12/2019 Active (LANTUS SOLOSTAR) 100 beneath the UNIT/ML Subcutaneous skin TWICE Solution Pen-injector DAILY. Insulin Pen Needle Inject 1 Each 100 Each 5 01/12/2019 Active (PEN NEEDLES) 31G X 5 beneath the MM Does not apply Misc skin TWICE DAILY. cephalexin (KEFLEX) 0 01/18/2019 Discontinued 500 MG Oral Cap 019 (Therapy Completed) predniSONE (DELTASONE) 0 01/18/2019 Discontinued 50 MG Oral Tab 019 (Therapy Completed) documented as of this encounter (statuses as of 01/30/2019) Active Problems Problem Noted Date Pulmonary arterial hypertension 11/28/2018 Depression 03/10/2012 BMI 70 and over, adult 08/28/2010 Gout 12/04/2007 Morbid obesity 04/28/2007 Type 2 diabetes mellitus with complication 04/28/2007 Essential hypertension 04/28/2007 Asthma 04/28/2007 Allergic Rhinitis 04/28/2007 Sleep apnea Overview: bipap documented as of this encounter (statuses as of 01/30/2019) Resolved Problems Problem Noted Date Resolved Date Wrist fracture 10/02/2011 Overview: R, open reduction and fixation documented as of this encounter (statuses as of 01/30/2019) Immunizations Name Administration Dates Next Due Influenza [...] Sign Reading Time Taken Comments Blood Pressure 132/74 01/30/2019 12:47 PM EST Pulse 90 01/30/2019 12:47 PM EST Temperature 36.6 01/30/2019 12:47 PM EST C (97.8 F) Respiratory Rate 22 01/30/2019 12:47 PM EST Oxygen Saturation 99% 01/30/2019 12:47 PM EST Inhaled Oxygen Concentration - - Weight 183.9 kg (405 lb 8 oz) 01/30/2019 12:47 PM EST Height 172.7 cm (5' 8") 01/30/2019 12:47 PM EST Body Mass Index 61.66 01/30/2019 12:47 PM EST documented in this encounter Patient Instructions Patient InstructionsKimmy Jefferson PA - 01/30/2019 12:40 PM EST NO medication changes today We will see you in ~2 months after your appointment in [place]. Follow up sooner if necessary. Continue to work on weight loss Get the fasting bloodwork that Dr. Oliveros ordered done documented in this encounter Progress Notes Kimmy Jefferson PA - 01/30/2019 12:40 PM EST [facility] Note Patient: Trae Urbina Date of : 1975 Date of Service: 01/30/2019 REFERRING PRACTITIONER: Self-Referred PRIMARY CARE PROVIDER: Chong Oliveros Chief Complaint: Chief Complaint Patient presents with Follow Up 2 month follow up History of Present Illness: We had the pleasure of seeing Trae Urbina today. He is a 44-y.o. male with a PMH of morbid obesity, DM2, depression, HTN , asthma, NILES on BiPap, PE on Xarelto, non-obstructive CAD by catheterization and severe Group 1 +/- Group [address] Lopez at [facility], who presents today for follow up. Overall, he reports improvement in his symptoms. He had one dizziness episode, since he was seen here last. Episode occurred on Tuesday, while he was sitting. He waited it out and it passed on its own. He has been tolerating the supplemental O2 well. Currently using 2L at rest and 3-4L with activity. He can walk ~ 1 block before having to stop with shortness of breath. He had one episode of chest pain this past weekend when sitting at the kitchen table. Pain lasted for about 10 minutes. Pain resolved with ASA. He was recently seen for a rash and LLE ulcer. The rash has resolved, and he has been following withthe wound clinic for management of the ulcer. He feels it has been healing well. He has been working on weight loss, by cutting back on portion size. He is going to [place] in a couple of weeks to see Dr. Nielsen and thinks he has an Echo planned for then too. No bleeding issues on Xarelto. Cardiac Studies: TTE at [facility] 11/22/2018: -Normal LV cavity size with moderately increased wall thickness. -Hyperdynamic LV with LVEF 70-75% -Mild to mod RV enlargement with moderately reduced contractility. Septal flattening c/w RV pressure/volume overload -Mild-mod TR. No other significant valve abnormalities. -Est PASP 40 mmHg (likely underestimated). Right Heart Cath at [facility] 11/01/2018: RA 19 mmHg PAP [...] subbranch disease (see text). V/Q Scan at [facility] 11/01/2018: Possible sequela of prior pulmonary emboli in all segments of the right upper lobe and superior segment of the right lower lobe, recommend further evaluation with CTA chest. Low probability of acute pulmonary embolism. Right and Left Heart Cath at [facility] 10/25/2018: RA 17 mmHg RV 124/22 mmHg PA 120/43 with mean 74 mmHg PCWP 17-19 CI 1.9 LM 15% ostial narrowing Possible LAD bridging, with no significant fixed disease No sig Cx or RCA disease. TTE at [facility] 09/20/2018: -Moderately increased wall thickness. -LVEF 65-70% without RWMAs -Mild-moderate RV enlargement with moderate to severely reduced systolic function -Septal flattening c/w RV volume/pressure overload. -Moderate LIZ -Mild-moderate MI -Estimated PASP 54 mmHg. Regadenoson SPECT at [facility] 09/22/2018: -LVEF 66% without RWMAs -Small to moderate amount of reversible perfusion defect is noted in the anterior wall at the base of the heart. -Intermediate risk test. Patient Active Problem List Diagnosis Morbid obesity ([facility]) Type 2 diabetes mellitus with complication ([facility]) Essential hypertension Asthma Allergic Rhinitis Sleep apnea Gout BMI 70 and over, adult ([facility]) Depression Pulmonary arterial hypertension ([facility]) Past Medical History: Diagnosis Date Allergic Rhinitis 04/28/2007 Asthma 04/28/2007 Depression Diabetes 04/28/2007 Gout Hypertension 04/28/2007 Morbid obesity ([facility]) 04/28/2007 Pulmonary arterial hypertension ([facility]) 11/28/2018 Pulmonary emboli ([facility]) 2019 Sleep apnea bipap 14/12 Wrist fracture R, open reduction and fixation History reviewed. No pertinent surgical history. Allergies Allergen Reactions Bee Sting Respiratory Reaction SOB, throat tightness Glipizide Other Burning pain in chest Ibuprofen [Aspartame-Ibuprofen] Other Mucinex Hives [place] Other Current Outpatient Medications Medication Sig albuterol [...] eyes ever 3 hours as needed). Insulin Glargine (LANTUS SOLOSTAR) 100 UNIT/ML Subcutaneous Solution Pen- injector Inject 60 Units beneath the skin TWICE DAILY. Insulin Pen Needle (PEN NEEDLES) 31G X 5 MM Does not apply Misc Inject 1 Each beneath the skin TWICE DAILY. Insulin Syringe-Needle U-100 30G X 3/16" 1 ML Does not apply Misc 1 Syringe by Does not applyroute TWICE DAILY. Lancets Does not apply Misc TWICE DAILY. E11.9 loratadine (CLARITIN,ALAVERT) 10 MG Oral Tab take 1 tablet by mouth once daily mirtazapine (REMERON) 15 MG Oral Tab Take 15 mg by mouth EVERY BEDTIME. Nystatin 173307 UNIT/GM Apply externally Powder 1 g by [...] file Gets together: Not on file Attends pentecostal service: Not on file Active member of [...] Narrative Disability temporary -trying to get permanent Patient denies fever, febrile illness. Denies fatigue. NEUROLOGIC: Denies transient ischemic attack or cerebrovascular accident signs or symptoms. Denies syncope or presyncopal episodes. CARDIOVASCULAR: one episode of chest pain, denies palpations, + edema. RESPITATORY: + shortness of breath, denies orthopnea. GASTROINTESTINAL: Denies melena. GENITOURINARY: Denies hematura or nocturia. MUSCULOSKELETAL: denies claudication. All other remaining systems are negative. Except that stated above in history of present illness Physical Exam: Vitals: 01/30/19 1247 BP: 132/74 BP Location: Right arm Patient Position: Sitting Pulse: 90 Resp: 22 Temp: 97.8 F (36.6 C) TempSrc: Tympanic SpO2: 99% Weight: (!) 405 lb 8 oz (183.9 kg) Height: 5' 8" (1.727 m) Body mass index is 61.66 kg/m. General: Well nourished, alert obese 44-y.o. male in NAD on NC HEENT: anicteric, MMM, no E/E OP, conj pink Neck: No carotid bruits CV: RRR, normal s1/s2, no appreciable murmurs, rubs, or gallops Pulm: CTA bilaterally without wheezes, rhonchi, or rales. No increased work of breathing. Abd: soft, NT, ND, +BS. No appreciable pulsatile masses or bruits. Obese. Ext: +1 b/l lower extremity edema, no cyanosis, no cords, redness, or warmth. LLE ankle wrapped in gauze. Neuro: no gross focal deficits Skin: no [...] 04/10/2018 LDLHDLRATIO 4.0 04/10/2018 CHOLHDLRATIO 6.3 04/10/2018 Assessment & Plan: Trae Urbina is a 44-y.o. male with ICD-9-CM ICD-10-CM 1. Pulmonary arterial hypertension (HCC) 416.8 I27.21 2. Essential hypertension 401.9 I10 3. Morbid obesity with BMI of 60.0-69.9, adult (HCC) 278.01 E66.01 V85.44 Z68.44 1. Severe Pulmonary HTN (Group 1 +/- Group 4): Pt is continuing to make headway with O2 therapy, diuretics, and pulmonary vasodilators. He has had one dizzy spell when sitting in the last few months, but they have overall decreased in frequency since his hospitalization at [facility]. His blood pressure is okay today. Will proceed as follows: Continue current therapy with tadalafil, ambrisentan, torsemide, and spironolactone. Continue ATC O2 therapy and nightly BiPap. Weight loss as below Cont Xarelto. Pt will continue to f/u with [facility] pulmonary HTN clinic (has appt with them in a couple weeks). Per care everywhere note, plan is to repeat TTE in the next month or so. I again counseled pt on sodium restriction and avoiding very heavy lifting and straining. 2. Morbid Obesity: In the past, Dr. Zepeda felt he would not be a safe candidate for bariatric surgery given the severity of his pulmonary hypertension. He is working on portion control and on increasing his activity level. 3. Chest Pain: He had one episode of non-exertional chest pain which resolved after 10 minutes with Aspirin and he had a non-obstructive catheterization 2018. Therefore, most likely GI or MSK relatedpain and low suspicion for cardiac origin. Thank you for allowing me to participate in the care of Trae Urbina. We will plan on f/uin our office in 2 months after visit with [facility] or sooner prn. If you have any questions or concernsplease feel free to call our office. PHYLLIS Zepeda, 01/30/2019, 13:27 documented in this encounter Plan of Treatment Date Type Specialty Care Team Description 02/08/2019 Office Visit End[facility]in[facility] Ynes Belle, SALES ADMINISTRATOR [facility] [address] 02/15/2019 Office Visit Family Practice Chong Oliveros MD [address] [place] [address] 02/22/2019 Office Visit Family Practice Chong Oliveros MD [address] [place] [address] 04/04/2019 Office Visit Cardiology Jhoan Zepeda MD [address] [place] [address] Health Maintenance Due Date Last Done Comments MEDICARE ANNUAL WELLNESS 12/21/2017 12/21/2016, 03/02/2012 VISIT HEMOGLOBIN A1C 01/12/2019 10/12/2018, 07/13/2018, 04/10/2018, Additional history exists DEPRESSION SCREENING 03/09/2019 03/09/2018 Diabetic Eye Exam 04/05/2019 04/05/2018, 03/31/2018, 03/31/2018, Additional history exists LIPID DISORDER SCREENING 04/10/2019 [...] Type Problems Progress Blood Pressure Blood Pressure Essential 132/74 No Susan, < 140/90 hypertension (01/30/2019 Lise, 12:47 PM EST) Note: Hypertension Care Plan Based [...] Educational Resources: National Heart, Lung, & Blood [place] http://nhlbi.nih.gov/hbp/index.html The DASH Diet Eating Plan http://www.nhlbi.nih.gov/health/health-topics/ topics/dash/ Academy of Nutrition & DIetetics http://eatright.org National Smoking Cessation Site http://smokefree.gov Blood Pressure < Blood Pressure 132/74 (01/30/2019 No Lise Davis, 140/90 12:47 PM EST) Note: This is an individualized [...] my blood sugar results (including dextrose sticks). [employer] is safe and secure way for you [...] better. Weight loss vs. 18 mo Lifestyle 20.5 (01/30/2019 12:47 PM No Lise Davis MD max (lbs) >= 10 EST) Note: This is an individualized lifestyle goal for Trae Chidi Carlitos: Your body mass index (BMI) is [...] - Primary Other chronic pulmonary heart diseases Essential hypertension Unspecified essential hypertension Morbid obesity with BMI of 60.0-69.9, adult (HCC) Morbid obesity documented in this encounter Guarantor Name Account Type Relation to Date of Phone Billing Patient Address Trae Urbina Personal/Family 1975 [address] (Home) [place], [place] [phone] (Work) documented as of this encounter Advance Directives Type Date Recorded 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
--- OUTSIDE RECORDS SUMMARY | 2019-03-29 19:28 | XMS REPORT | Summary of Care ---
:1975 Author Organization [facility] Address [address] [facility] [place] [address] Care Team Providers Name Role Phone Lilli Chen RN Unavailable Chong Oliveros Primary Care Provider Reason for Referral Medication Prior Authorization (Routine) Status Reason Specialty Diagnoses / Referred By Referred To Procedures Contact Contact Authorized Ynes Belle FNP [address] [facility] [place] [id number] Reason for Visit Reason Comments Diabetes Mellitus Pt reports checking blood sugar BID. Follow Up Encounter Details Date Type Department Care Team Description 02/08/2019 Office Visit [facility] Yoshi, Uncontrolled type 2 [address] [facility] [place] [address] [address] [facility] complication, with [phone] [place] [id number] long-term current use [phone] of insulin ([facility]) (Primary Dx) Allergies Active Allergy Reactions Severity Noted Date Comments Bee Sting Respiratory Reaction 09/19/2013 SOB, throat tightness Glipizide Other 09/20/2007 Burning pain in chest Aspartame-Ibuprofen Other 10/02/2011 Mucinex Hives 03/02/2018 Nitroglycerin Other 02/08/2019 Pt told not to take d/t reaction with other meds. Pt unable to advise what medication interactions or possible side effects [place] Other 10/02/2011 documented as of this encounter (statuses as of 02/08/2019) Medications Medication Sig Dispensed Refills Start Date End Date Status HYDROXYPROPYL Place 2 Drops 1 Bottle 0 02/14/2014 Active METHYLCELLULOSE to the external (GENTEAL MILD TO eye DAILY MODERATE) 0.3 % NEEDED (2 drops Ophthalmic Solution in both eyes ever 3 hours as needed). loratadine take 1 tablet 30 Tab 5 11/05/2014 Active (CLARITIN,ALAVERT) by mouth once 10 MG Oral Tab daily Nystatin 792291 1 g by Apply 1 Bottle 2 04/26/2017 Active UNIT/GM Apply externally externally Powder route TWICE DAILY. mirtazapine Take 15 mg by 0 Active (REMERON) 15 MG Oral mouth EVERY Tab BEDTIME. EPINEPHrine (EPIPEN 1 Device by 2 Each 0 08/24/2017 Active 2-STU) 0.3 MG/0.3ML Injection route Injection Solution DIRECTED. As Auto-injector directed for bee sting Blood Glucose 1 Device by 1 Device 0 08/25/2017 Active Monitor Software Does not apply Does not apply route Device DIRECTED. Insurance preferred. E11.9 albuterol HFA Take 2 Puffs by 1 Inhaler 0 06/09/2018 Active (VENTOLIN) 108 (90 inhalation Base) MCG/ACT EVERY FOUR Inhalation Aero Soln HOURS NEEDED (1-2 puffs every four hours as needed). carvedilol (COREG) Take 1 Tab by 180 Tab 3 10/24/2018 Active 3.125 MG Oral Tab mouth TWICE DAILY. Tadalafil 20 MG Oral Take by mouth. 0 Active Tab budesonide-formotero Take 2 INHL by 0 Active l fumarate inhalation (SYMBICORT) 160-4.5 TWICE DAILY. MCG/ACT Inhalation Aerosol ONE TOUCH ULTRA TEST USE TO TEST 100 Strip 5 11/13/2018 Active STRIPS In Vitro TWICE DAILY Strip DIRECTED Lancets Does not TWICE DAILY. 100 Each 5 11/15/2018 Active apply Misc E11.9 BD ULTRA-FINE PEN USE TO INJECT 100 Each 0 11/27/2018 Active NEEDLES 29G X 12.7MM TWICE DAILY Does not apply Misc DIRECTED Ambrisentan 5 MG Take 10 mg by 0 Active Oral Tab mouth DAILY. buPROPion Take 1 Tab by 30 Tab 5 12/04/2018 Active (WELLBUTRIN XL) 300 mouth DAILY. MG Oral TABLET SR 24 HR buPROPion Take 1 Tab by 30 Tab 5 12/04/2018 Active (WELLBUTRIN SR) 150 mouth DAILY. MG Oral TABLET SR 12 HR Aripiprazole Take 1 Tab by 30 Tab 1 12/04/2018 Active (ABILIFY) 2 MG Oral mouth EVERY Tab BEDTIME. allopurinol Take 1 Tab by 60 Tab 5 12/29/2018 Active (ZYLOPRIM) 100 MG mouth TWICE Oral Tab DAILY. rivaroxaban Take 1 Tab by 30 Tab 5 12/29/2018 Active (XARELTO) 20 MG Oral mouth DAILY. Tab Spironolactone 50 MG Take 1 Tab by 60 Tab 1 12/29/2018 Active Oral Tab mouth TWICE DAILY. torsemide (DEMADEX) Take 2 Tabs by 60 Tab 1 12/29/2018 Active 10 MG Oral Tab mouth DAILY. Insulin 1 Syringe by 100 Each 0 01/12/2019 Active Syringe-Needle U-100 Does not apply 30G X 3/16" 1 ML route TWICE Does not apply DAILY. MiscIndications: Type 2 diabetes mellitus with complication (HCC) Insulin Glargine Inject 60 Units 25 Each 1 01/12/2019 Active (LANTUS SOLOSTAR) beneath the 100 UNIT/ML skin TWICE Subcutaneous DAILY. Solution Pen-injector Insulin Pen Needle Inject 1 Each 100 Each 5 01/12/2019 Active (PEN NEEDLES) 31G X beneath the 5 MM Does not apply skin TWICE Misc DAILY. Insulin Lispro Prot Inject 60 Units 120 mL 3 02/08/2019 Active & Lispro (75-25) 100 beneath the UNIT/ML Subcutaneous skin TWICE Suspension DAILY. Pen-injector GLARGINE insulin, Inject 40-50 6 Each 5 12/28/2018 Discontinued LONG-Acting, Units beneath 9 (LANTUS) 100 UNIT/ML the skin TWICE Subcutaneous DAILY. 50 U in Solution AM and 40 U PM - E11.9 documented as of this encounter (statuses as of 02/08/2019) Active Problems Problem Noted Date Pulmonary arterial hypertension 11/28/2018 Depression 03/10/2012 BMI 70 and over, adult 08/28/2010 Gout 12/04/2007 Morbid obesity 04/28/2007 Type 2 diabetes mellitus with complication 04/28/2007 Essential hypertension 04/28/2007 Asthma 04/28/2007 Allergic Rhinitis 04/28/2007 Sleep apnea Overview: bipap documented as of this encounter (statuses as of 02/08/2019) Resolved Problems Problem Noted Date Resolved Date Wrist fracture 10/02/2011 Overview: R, open reduction and fixation documented as of this encounter (statuses as of 02/08/2019) Immunizations Name Administration Dates Next Due Influenza [...] Sign Reading Time Taken Comments Blood Pressure 132/80 02/08/2019 10:33 AM EST Pulse 74 02/08/2019 10:33 AM EST Temperature - - Respiratory Rate - - Oxygen Saturation - - Inhaled Oxygen Concentration - - Weight 185.9 kg (409 lb 12.8 oz) 02/08/2019 10:33 AM EST Height 172.7 cm (5' 8") 02/08/2019 10:33 AM EST Body Mass Index 62.31 02/08/2019 10:33 AM EST documented in this encounter Progress Notes Ynes Belle FNP - 02/08/2019 11:20 AM EST NAME: Trae Urbina : 1975 DATE: 02/08/2019 SUBJECTIVE: Trae Urbina is a 44-y.o. male is here for a follow-up for [...] route DIRECTED. As directed for bee sting HYDROXYPROPYL METHYLCELLULOSE (GENTEAL MILD TO MODERATE) 0.3 [...] 15 mg by mouth EVERY BEDTIME. Nystatin [id number] UNIT/GM Apply externally Powder 1 g by [...] in chest Ibuprofen [Aspartame-Ibuprofen] Other Mucinex Hives Nitroglycerin Other Pt told not to take d/t reaction with other meds. Pt unable to advise what medication interactions or possible side effects [facility] Other Past Medical History: Diagnosis Date Allergic [...] Financial resource strain: Not on file Food insecurity Worry: Not on file Inability: Not on file Transportation needs Medical: Not on file Non-medical: Not on file Tobacco Use Smoking status: Never Smoker Smokeless tobacco: Never Used Substance and Sexual Activity Alcohol use: No Drug use: No Sexual activity: Not on file Lifestyle Physical activity Days per week: Not on file Minutes per session: Not on file Stress: Not on file Relationships Social connections Talks on phone: Not on file Gets together: Not on file Attends [employer]ian service: Not on file Active member of club or organization: Not on file Attends meetings of clubs or organizations: Not on file Relationship status: Not on file Intimate partner violence Fear of current or ex partner: Not on file Emotionally abused: Not on file Physically abused: Not on file Forced sexual activity: Not on file Other Topics Concern Not on file Social History Narrative Disability temporary -trying to get permanent OBJECTIVE: Blood pressure 132/80, pulse 74, height 5' 8" (1.727 m), weight (!) 409 lb 12.8 oz (185.9kg). General: no distress. Eyes: conjunctiva pink Neck: [...] 2 uncontrolled with neuropathy and morbid obesity Switch to mixed insulin for cost reasons Goal blood sugars discussed Injection site rotation discussed Labs reviewed 2. Morbid Obesity Diet and exercise encouraged Has seen dietitian 3. Hypertension Adequate control 4. Neuropathy stable. [facility] Section of Endocrinology 02/08/2019 11:08 documented in this encounter Plan of Treatment Date Type Specialty Care Team Description 02/15/2019 Office Visit Family Practice Chong Oliveros MD [address] [place] [address] [phone] 02/22/2019 Office Visit Family Practice Chong Oliveros MD [address] [place] [address] [phone] 04/04/2019 Office Visit Cardiology Jhoan Zepeda MD [address] [place] [address] [phone] Health Maintenance Due Date Last Done Comments MEDICARE ANNUAL WELLNESS 12/21/2017 12/21/2016, 03/02/2012 VISIT HEMOGLOBIN A1C 01/12/2019 10/12/2018, 07/13/2018, 04/10/2018, Additional history exists DEPRESSION SCREENING 03/09/2019 03/09/2018 LIPID DISORDER SCREENING 04/10/2019 04/10/2018, 09/15/2017, 06/11/2017, Additional history exists FOOT EXAM 07/14/2019 07/13/2018, 07/13/2018, 08/24/2017, Additional history exists URINE MICROALBUMIN 09/09/2019 09/08/2018, 10/06/2016, 09/11/2014, Additional history exists DTaP/Tdap/Td Vaccines (2 - 09/11/2019 09/10/2009 Tdap) Diabetic Eye Exam 04/05/2020 04/05/2018, 03/31/2018, 03/31/2018, Additional history exists PNEUMOCOCCAL 0-64 YRS Completed 09/10/2009 INFLUENZA VACCINE Completed 12/04/2018, 01/02/2018, 12/21/2016, Additional history exists HEPATITIS A IMMUNIZATION Aged Out No longer eligible SERIES based on patient's age to complete this topic HPV IMMUNIZATION SERIES Aged Out No longer eligible based on patient's age to complete this topic MENINGOCOCCAL VACCINE IMM Aged Out No longer eligible based on patient's age to complete this topic documented as of this encounter Goals Goal Patient Goal Associated Recent Patient-Stated? Author Type Problems Progress Blood Pressure Blood Pressure Essential 132/80 No Susan, < 140/90 hypertension (02/08/2019 Lise, 10:33 AM EST) Note: Hypertension Care Plan Based on [...] Educational Resources: National Heart, Lung, & Blood [place] http://nhlbi.nih.gov/hbp/index.html The DASH Diet Eating Plan http://www.nhlbi.nih.gov/health/health-topics/ topics/dash/ Academy of Nutrition & DIetetics http://eatright.org National Smoking Cessation Site http://smokefree.gov Blood Pressure < Blood Pressure 132/80 (02/08/2019 No Lise Davis, 140/90 10:33 AM EST) Note: This is an individualized treatment [...] 7.0 Diabetes Type 2 diabetes 10.9 (10/12/2018 Karuna Davis mellitus with 3:02 PM EDT) MD Lise [...] my blood sugar results (including dextrose sticks). [facility] is safe and secure way for you [...] my blood sugar results (including dextrose sticks). [facility] is safe and secure way for you [...] better. Weight loss vs. 18 mo Lifestyle 16.2 (02/08/2019 10:33 AM No Lise Davis MD max (lbs) [...] Summaries. 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
--- OUTSIDE RECORDS SUMMARY | 2019-03-29 19:28 | XMS REPORT | Summary of Care ---
:1975 Author Organization [facility] Address [address] [facility] [place] [address] Care Team Providers Name Role Phone Lilli Chen RN Unavailable Chong Oliveros Primary Care Provider Reason for Referral Medication Prior Authorization (Routine) Status Reason Specialty Diagnoses / Referred By Referred To Procedures Contact Contact Pending Review Chong Oliveros MD [address] [place] [address] Reason for Visit Reason Comments Follow Up pt presents for follow up Encounter Details Date Type Department Care Team Description 02/15/2019 Office Visit [facility] Chong Oliveros MD Type 2 diabetes mellitus with complication (HCC) (Primary Dx); Practice [address] [facility] Pulmonary arterial hypertension (HCC); [address] [place] [address] Morbid obesity (HCC); [place] [address] Moderate episode of recurrent major depressive disorder (HCC); [phone] Low testosterone in male; Dyslipidemia Allergies Active Allergy Reactions Severity Noted Date Comments Bee Sting Respiratory Reaction 09/19/2013 SOB, throat tightness Glipizide Other 09/20/2007 Burning pain in chest Aspartame-Ibuprofen Other 10/02/2011 Mucinex Hives 03/02/2018 Nitroglycerin Other 02/08/2019 Pt told not to take d/t reaction with other meds. Pt unable to advise what medication interactions or possible side effects Thomas Other 10/02/2011 documented as of this encounter (statuses as of 02/18/2019) Medications Medication Sig Dispensed Refills Start Date End Date Status HYDROXYPROPYL Place 2 Drops to 1 Bottle 0 02/14/2014 Active METHYLCELLULOSE the external eye (GENTEAL MILD TO DAILY NEEDED MODERATE) 0.3 % (2 drops in both Ophthalmic Solution eyes ever 3 hours as needed). loratadine take 1 tablet by 30 Tab 5 11/05/2014 Active (CLARITIN,ALAVERT) 10 mouth once daily MG Oral Tab Nystatin [id number] UNIT/GM 1 g by Apply 1 Bottle [...] Oral Take by mouth. 0 Active Tab ONE TOUCH ULTRA TEST USE TO TEST [...] 2 MG Oral Tab mouth EVERY BEDTIME. allopurinol (ZYLOPRIM) Take 1 Tab by 60 [...] mouth DAILY. Insulin Syringe-Needle 1 Syringe by Does 100 Each 0 01/12/2019 Active U-100 30G X 3/16" 1 ML not apply route Does not apply TWICE DAILY. MiscIndications: Type 2 diabetes mellitus with complication (HCC) Insulin Glargine Inject 60 Units 25 Each 1 01/12/2019 Active (LANTUS SOLOSTAR) 100 beneath the skin UNIT/ML Subcutaneous TWICE DAILY. Solution Pen-injector Additional information Patient taking differently: 80 Units Subcutaneous BID, Reported on 2018 2:49 PM Insulin Pen Needle Inject 1 Each 100 Each 5 01/12/2019 Active (PEN NEEDLES) 31G X beneath the skin 5 MM Does not apply TWICE DAILY. Misc Insulin Aspart Prot Inject 60 Units 120 mL 3 02/12/2019 Active & Aspart (NOVOLOG beneath the skin MIX 70/30 FLEXPEN) TWICE DAILY. (70-30) 100 UNIT/ML Subcutaneous Suspension Pen-injector budesonide-formoter Take 2 INHL by 1 Each 5 02/15/2019 Active ol fumarate inhalation TWICE (SYMBICORT) 160-4.5 DAILY. MCG/ACT Inhalation Aerosol atorvastatin Take 1 Tab by mouth 90 Tab 0 02/15/2019 Active (LIPITOR) 10 MG DAILY. Oral Tab Testosterone Place 2.5 g onto 75 g 0 02/18/2019 Active (ANDROGEL) 40.5 skin DAILY. Max MG/2.5GM (1.62%) Daily Amount: 2.5 Transdermal Gel g. 1 packet daily Dx low testosterone budesonide-formoter Take 2 INHL by 0 Discontinued ol fumarate inhalation TWICE 019 (Reorder) (SYMBICORT) 160-4.5 DAILY. MCG/ACT Inhalation Aerosol documented as of this encounter (statuses as of 02/18/2019) Active Problems Problem Noted Date Low testosterone in male 02/15/2019 Pulmonary arterial hypertension 11/28/2018 Depression 03/10/2012 BMI 70 and over, adult 08/28/2010 Gout 12/04/2007 Morbid obesity 04/28/2007 Type 2 diabetes mellitus with complication 04/28/2007 Essential hypertension 04/28/2007 Asthma 04/28/2007 Allergic Rhinitis 04/28/2007 Sleep apnea Overview: bipap documented as of this encounter (statuses as of 02/18/2019) Resolved Problems Problem Noted Date Resolved Date Wrist fracture 10/02/2011 Overview: R, open reduction and fixation documented as of this encounter (statuses as of 02/18/2019) Immunizations Name Administration Dates Next Due Influenza [...] Sign Reading Time Taken Comments Blood Pressure 114/64 02/15/2019 2:51 PM EST Pulse 83 02/15/2019 2:51 PM EST Temperature - - Respiratory Rate - - Oxygen Saturation 99% 02/15/2019 2:51 PM EST Inhaled Oxygen Concentration - - Weight 182.4 kg (402 lb 3.2 oz) 02/15/2019 2:51 PM EST Height 172.7 cm (5' 8") 02/15/2019 2:51 PM EST Body Mass Index 61.15 02/15/2019 2:51 PM EST documented in this encounter Progress Notes Chong Oliveros MD - 02/15/2019 2:40 PM EST PATIENT: Trae Urbina : 1975 DATE OF SERVICE: 02/15/2019 CHIEF COMPLAINT: Chief Complaint Patient presents with Follow Up pt presents for follow up Subjective HISTORY OF PRESENT ILLNESS: Trae Urbina is a 44-y.o. male. in for follow up of diabetes mellitus. His a1c went from 11 to 9.0 Ynes changed him from lantus to 70/30 due to $ but he not change yet He said he could afford it but not afford something else?? /Reports foot complaints of his ulcer has healed Culture of his ulcers staphepidermidis pen , keflex and bactrim R He saw chloride recently and said he was doing well. They want him on demadex 20mg and he said he is taking 2 10 mg tabs Also aldactone our records say 2 but chloride has 1 a day [place] wants him on iron infusion When I first met him he was anemic but his last cbc normal I did not do iron test but mcv normal . His platelets low when I first met him and I though nmaybe lowtestosterone His testosterone came back very low He rarely takes albuterol but needs symbicor refill In for follow up of hyperlipidemia. Not sure why not on a med He not know why either . I had refilled his abilify at 2 mg But used to be on 5 mg. He should be out by my calculation but he said he has been to psych. He not know what dose he is taking now but he had some more dizziness yesterday Past Medical History: Diagnosis Date Allergic Rhinitis [...] Take 1 Tab by mouth EVERY BEDTIME. atorvastatin (LIPITOR) 10 MG Oral Tab Take 1 Tab by mouth DAILY. BD ULTRA-FINE PEN NEEDLES 29G X 12.7MM [...] eyes ever 3 hours as needed). Insulin Aspart Prot & Aspart (NOVOLOG MIX 70/30 FLEXPEN) (70-30) 100 UNIT/ML SubcutaneousSuspension Pen-injector Inject 60 Units beneath the skin TWICE DAILY. Insulin Glargine (LANTUS SOLOSTAR) 100 UNIT/ML Subcutaneous Solution Pen- injector Inject 60 Units beneath the skin TWICE DAILY. (Patient taking differently: Inject 80 Units beneath the skin TWICE DAILY.) Insulin Pen Needle (PEN NEEDLES) 31G X [...] 15 mg by mouth EVERY BEDTIME. Nystatin 511014 UNIT/GM Apply externally Powder 1 g by [...] what medication interactions or possible side effects Thomas Other Social History Socioeconomic History Marital status: [...] file Gets together: Not on file Attends oriental orthodox service: Not on file Active member of [...] Narrative Disability temporary -trying to get permanent Over the last 2 weeks, have you been feeling down, depressed, anxious, or hopeless?: 0 Over the past 2 weeks, have you felt little interest or pleasure in doing things ?: 3 Trouble falling or staying asleep, or sleeping too much?: 0 Feeling tired or having little energy?: 0 Poor appetite or overeating?: 0 Feeling bad about yourself or that you are a failure or have let yourself or your family down?: 0 Trouble concentrating on things, such as reading the newspaper or watching TV?: 0 Moving or speaking so slowly that other people notice OR being fidgety and restless?: 0 Thoughts that you would be better off or of hurting yourself in some way?: 0 PHQ-9 TOTAL SCORE: 3 REVIEW OF SYSTEMS: ROS Objective PHYSICAL EXAM: VITALS: BP 114/64 (BP Location: Left arm, Patient Position: Sitting) | Pulse 83 | Ht 5' 8" (1.727m) | Wt (!) 402 lb 3.2 oz (182.4 kg) | SpO2 99% | BMI 61.15 kg/m Body mass index is 61.15 kg/m. Physical Exam Vitals signs reviewed. Constitutional: Appearance: He is not ill-appearing (this the best he has looked). Cardiovascular: Rate and Rhythm: Normal rate and regular rhythm. Pulmonary: Breath sounds: Normal breath sounds. No wheezing or rales. Musculoskeletal: Right lower leg: No edema. Left lower leg: No edema. Psychiatric: Comments: Dress and hygiene good Good eye contact Thoughts and speech quiet Affect Appropriate Mood ok ASSESSMENT / IMPRESSION: ICD-9-CM ICD-10-CM 1. Type 2 diabetes mellitus with complication (HCC) not sure 70/30 will be better than lantus as he said not $$ so not sure the rational but worth the try ? Why not on lillie 250.90 E11.8 2. Pulmonary arterial hypertension (HCC) he says chloride gives meds , verify aldactone 50 qd 416.8 I27.21 3. Morbid obesity (HCC) 278.01 E66.01 4. Moderate episode of recurrent major depressive disorder (HCC) verify abilify dose 296.32 F33.1 5. Low testosterone in male likely due to Laurent and obesity , will try to replace but in hindsight doubt the cause of his anemia In fact anemia resolved so will hold off on any iron infusion 790.99 R79.89 6. Dyslipidemia should be on statin 272.4 E78.5 Plan Author: Chong Oliveros MD 02/15/2019 20:12 documented in this encounter Plan of Treatment Date Type Specialty Care Team Description 04/04/2019 Office Visit Cardiology Jhoan Zepeda MD [address] [place] [address] [phone] 05/16/2019 Lab Internal Medicine 05/25/2019 Office Visit Family Practice Chong Oliveros MD [address] [place] [address] [phone] Name Type Priority Associated Diagnoses Order Schedule GLYCOHEMOGLOBIN A1C Lab Routine Type 2 diabetes mellitus Expected: 2018 with complication (HCC) (Approximate), Expires: 02/16/2020 LIPID PROFILE Lab Routine Type 2 diabetes mellitus Expected: 02/15/2019 with complication (HCC) (Approximate), Expires: 02/16/2020 COMPREHENSIVE METABOLIC Lab Routine Dyslipidemia Expected: 02/15/2019 PANEL (Approximate), Expires: 02/16/2020 CBC WITH DIFFERENTIAL Lab Routine Low testosterone in male Expected: 2018 (Approximate), Expires: 02/16/2020 TESTOSTERONE, TOTAL Lab Routine Low testosterone in male Expected: 2018 (Approximate), Expires: 02/16/2020 PSA, TOTAL (FOLLOW-UP Lab Routine Low testosterone in male Expected: 2018 DIAGNOSTIC) (Approximate), Expires: 02/16/2020 Health Maintenance Due Date Last Done Comments MEDICARE ANNUAL WELLNESS 12/21/2017 12/21/2016, 03/02/2012 VISIT HEMOGLOBIN A1C 05/10/2019 02/08/2019, 10/12/2018, 07/13/2018, Additional history exists FOOT EXAM 07/14/2019 07/13/2018, 07/13/2018, 08/24/2017, Additional history exists URINE MICROALBUMIN 09/09/2019 09/08/2018, 10/06/2016, 09/11/2014, Additional history exists DTaP/Tdap/Td Vaccines (2 - 09/11/2019 09/10/2009 Tdap) DEPRESSION SCREENING 02/16/2020 02/15/2019, 02/15/2019 LIPID DISORDER SCREENING 02/16/2020 02/15/2019, 02/08/2019, 04/10/2018, Additional history exists Diabetic Eye Exam 04/05/2020 04/05/2018, 03/31/2018, 03/31/2018, [...] Problems Progress Blood Pressure Blood Pressure Essential 114/64 No Susan, < 140/90 hypertension (02/15/2019 Lise, 2:51 PM EST) Note: Hypertension Care Plan Based [...] Educational Resources. record my blood pressure results. [facility] is safe and secure way for you [...] Educational Resources: National Heart, Lung, & Blood [place] http://nhlbi.nih.gov/hbp/index.html The DASH Diet Eating Plan http://www.nhlbi.nih.gov/health/health-topics/ topics/dash/ Academy of Nutrition & DIetetics http://eatright.org National Smoking Cessation Site http://smokefree.gov Blood Pressure < Blood Pressure 114/64 (02/15/2019 No Lise Davis, 140/90 2:51 PM EST) Note: This is an individualized treatment (blood pressure) goal for Trae Urbina: Displayed above (on the left) is your goal for blood pressure control. Your most recent blood pressure is also shown above, on the right. You should try to achieve blood pressures that are lower than your goal listed above (on the left). Depression screen Depression 3 (02/15/2019 2:50 PM No Lise Davis, (PHQ-9) total score < 5 EST) Note: This is an individualized treatment (depression) goal for Trae Urbina: Displayed above is your goal for a depression screening (PHQ-9) score that would indicate good control of your depression. Diabetes < 7.0 Diabetes Type 2 diabetes 9.0 (02/08/2019 No Susan, mellitus with 10:28 AM EST) MD Lise complication Note: Diabetes Care Plan [...] my blood sugar results (including dextrose sticks). [facility] is safe and secure way for you [...] Diabetes < 7.0 Diabetes Type 2 diabetes 9.0 (02/08/2019 No Susan, mellitus with 10:28 AM EST) MD Lise complication Note: Diabetes Care Plan [...] towards quitting. Glycohemoglobin A1c < 7.0 Diabetes 9.0 (02/08/2019 10:28 No Lise Davis AM EST) Note: This is an individualized treatment (diabetes control, HgbA1C) goal for Trae Urbina: Displayed above is your progress towards your HgbA1C goal. Your goal is shown above (on the left); your most recent HgbA1C is shown on the right. Note that lower numbers are better. Weight loss vs. 18 mo Lifestyle 23.8 (02/15/2019 2:51 PM No Lise Davis MD max (lbs) [...] Visit Diagnoses Diagnosis Pulmonary arterial hypertension (HCC) Other chronic pulmonary heart diseases Morbid obesity (HCC) Morbid obesity Type 2 diabetes mellitus with complication (HCC) Moderate episode of recurrent major depressive disorder (HCC) Low testosterone in male Dyslipidemia Other and unspecified hyperlipidemia documented in this encounter Guarantor Name Account Type Relation to Date of Phone Billing Patient Address Trae Urbina Personal/Family 1975 [address] (Home) [place], [place] [phone] [id number] (Work) documented as of this encounter Advance Directives Type Date 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
[2019-03-29] MEDS ORDERED: Insulin REGULAR(*) 1 UNITS UNIT IV PUSH ONE (20:38)
[2019-03-29] MEDS ORDERED: NS 0.9% 1000 ML** 1,000 ML IV ONE (20:39)
[2019-03-29 20:50] LABS: ABS Basophils 0.1 10^3/ul (0-0.2); ABS Eosinophils 0.2 10^3/ul (0-0.6); ABS Monocytes 0.5 10^3/ul (0-0.8); ABS Neutrophils 6.4 10^3/ul (1.5-7.7); Hematocrit 40 % (42-52); Hemoglobin 13.7 g/dL (14.0-18.0); Lymphocyte % 12.3 %; Mean Corpuscular HGB Conc 34 g/dL (31-36); Mean Corpuscular Hemoglobin 28 pg (27-31); Mean Corpuscular Volume 83 fL (80-94); Mean Platelet Volume 7.6 fL (7.4-10.4); Nucleated Red Blood Cells % 0.1; Platelet Count 156 10^3/uL (150-450); Red Blood Count 4.84 10^6 /uL (4.18-5.48); Red Cell Distribution Width 16 % (10-15)
[2019-03-29 21:08] LABS: ALT 13 U/L (7-52); AST 11 U/L (13-39); Albumin 4.1 g/dL (3.2-5.2); Alkaline Phosphatase 44 U/L (34-104); Anion Gap 7 mmol/L (2-11); Blood Urea Nitrogen 16 mg/dL (6-24); C Reactive Protein 22.97 mg/L (<8.01); CO2 Carbon Dioxide 28 mmol/L (22-32); Calcium 9.1 mg/dL (8.6-10.3); Chloride 100 mmol/L (101-111); Creatine Kinase 20 U/L (10-223); EGFR African American 106.5 (>60); Globulin 2.1 g/dL (2-4); Glucose 249 mg/dL (70-100); Potassium 4.2 mmol/L (3.5-5.0); Sodium 135 mmol/L (135-145); Total Protein 6.2 g/dL (6.4-8.9)
[2019-03-29 21:17] LABS: Alcohol < 10 mg/dL (<10)
--- NOTE | 2019-03-29 21:21 | ED ---
Complex/Multi-Sys Presentation - HPI Summary HPI Summary: Patient is a 44 y/o diabetic male presenting to [facility] via EMS with complaints of hyperglycemia and CP. He states that he was walking around and making dinner without his o2 on when he began to experience right-sided sharp chest pain that radiated down his right arm. He took ASA and CP resolved. Patient continued to prepare dinner and then experienced a room-spinning dizziness. He measured his BG, which resulted in the 480s. Patient called his medical provider and he was advised to come to ED for evaluation. While EMS was en route, he measured BG again and states that it was 551. Patient reports administering 21 units of Novalog per his sliding scale. He states that his BG this morning was 346. Patient notes that he was being worked up at [facility] for pulmonary HTN and his BGs after discharge had been in 100s-200s. Home medications and allergies are reviewed. - History Of Current Complaint Chief Complaint: EDDiabeticProb Time Seen by Provider: 03/29/19 19:36 Hx Obtained From: Patient Onset/Duration: Still Present, Resolved - CP Timing: Intermittent, Lasting: Severity Currently: None - CP resolved Location: Pain At: - chest Associated Signs And Symptoms: Positive: Dizziness, Chest Pain, Other - high BG - Allergies/Home Medications Allergies/Adverse Reactions: Allergies Allergy/AdvReac Type Severity Reaction Status Date / Time bee venom protein (honey bee) Allergy Anaphylatic Verified 03/29/19 19:34 Shock dextromethorphan Allergy Nausea Verified 03/29/19 19:33 [From Mucinex DM] glipizide Allergy See Comment Verified 03/29/19 19:34 guaifenesin [From Mucinex DM] Allergy Nausea Verified 03/29/19 19:33 ibuprofen [From Motrin] Allergy rash/kidneys Verified 03/29/19 19:33 shut down nitroglycerin Allergy See Comment Verified 03/29/19 19:33 orange oil Allergy hives Uncoded 03/29/19 19:33 diff breathing Home Medications: Home Medications Ambrisentan [Letairis] 10 mg PO DAILY 03/29/19 [History Confirmed 03/29/19] Atorvastatin* [Lipitor*] 10 mg PO DAILY 03/29/19 [History Confirmed 03/29/19] Carvedilol TAB* [Coreg TAB*] 3.125 mg PO BID 03/29/19 [History Confirmed ] Insulin Lispro [Admelog 100 units/ml 10 ml VIAL] 0 - 21 units SUBCUT TID PC [History Confirmed 03/29/19] PMH/Surg Hx/FS Hx/Imm Hx Endocrine/Hematology History: Reports: Hx Diabetes Denies: Hx Thyroid Disease, Hx Anemia, Hx Unexplained Bleeding Cardiovascular History: Reports: Hx Hypertension Denies: Hx Aneurysm, Hx Angina, Hx Auto Implanted Cardiovert Defib, Hx Cardiac Arrest, Hx Congenital Heart Disease, Hx Congestive Heart Failure, Hx Coronary Artery Disease, Hx Deep Vein Thrombosis, Hx Embolism, Hx Hypercholesterolemia, Hx Hypotension, Hx Myocardial Infarction, Hx Pacemaker/ICD , Hx Peripheral Vascular Disease, Hx Rheumatic Fever, Hx Syncope, Hx Valvular Heart Disease, Other Cardiovascular Problems/Disorders Respiratory History: Reports: Hx Asthma, Hx Pulmonary Embolism - currently on xarelto, Hx Sleep Apnea - uses cpap, Other Respiratory Problems/Disorders - pulmonary HTN, obstructive hypoventilation Denies: Hx Chronic Obstructive Pulmonary Disease (COPD), Hx Cystic Fibrosis, Hx Lung Cancer, Hx Pleural Effusion, Hx Pneumonia, Hx Pulmonary Edema, Hx Seasonal Allergies GI History: Denies: Hx Cirrhosis, Hx Crohn's Disease, Hx Diverticulosis, Hx Gall Bladder Disease, Hx Gastroesophageal Reflux Disease, Hx Gastrointestinal Bleed, Hx Hiatal Hernia, Hx Irritable Bowel, Hx Jaundice, Hx Obstructive Bowel, Hx Ileostomy, Hx Pyloric Stenosis, Hx Ulcer, Other GI Disorders History: Reports: Other Problems/Disorders - kidney "issues" when he takes ibuprofen Denies: Hx Acute Renal Failure, Hx Benign Prostatic Hyperplasia, Hx Chronic Renal Failure, Hx Dialysis, Hx Kidney Infection, Hx Kidney Stones, Hx Renal Disease Musculoskeletal History: Reports: Hx Gout Denies: Hx Arthritis, Hx Back Problems, Hx Bursitis, Hx Congenital Bone Abnormalities, Hx Fibromyalgia, Hx Osteoporosis, Hx Scoliosis, Hx Tendonitis, Other Musculoskeletal History Sensory History: Reports: Hx Contacts or Glasses Denies: Hx Cataracts, Hx Eye Injury, Hx Eye Prosthesis, Hx Glaucoma, Hx Legally Blind, Hx Macular Degeneration, Hx Vision Problem, Hx Deafness, Hx Hearing Aid, Hx Hearing Problem, Other Sensory Impairments Opthamlomology History: Reports: Hx Contacts or Glasses Denies: Hx Cataracts, Hx Eye Injury, Hx Eye Prosthesis, Hx Glaucoma, Hx Legally Blind, Hx Macular Degeneration, Hx Vision Problem, Other Sensory Impairments Neurological History: Reports: Other Neuro Impairments/Disorders - previous diagnosis of vertigo Denies: Hx Dementia, Hx Developmental Delay, Hx Headaches, Hx Migraine, Hx Nerve Disease, Hx Seizures, Hx Spinal Cord Injury, Hx Transient Ischemic Attacks (TIA) Psychiatric History: Reports: Hx Anxiety, Hx Depression, Hx Community Mental Health Tx, Hx Suicide Attempt Denies: Hx Attention Deficit Hyperactivity Disorder, Hx Autism, Hx Eating Disorder, Hx Panic Disorder, Hx Post Traumatic Stress Disorder, Hx Inpatient Treatment, Hx Schizophrenia, Hx Bipolar Disorder, Hx of Violent Episodes Against Others - Cancer History Cancer Type, Location and Year: none - Surgical History Surgery Procedure, Year, and Place: RIGHT WRIST FRACTURE, SCREWS PLACED. Hx Anesthesia Reactions: No - Immunization History Date of Tetanus Vaccine: UNKNOWN Infectious Disease History: No Infectious Disease History: Denies: Hx Clostridium Difficile, Hx Hepatitis, Hx Human Immunodeficiency Virus (HIV), Hx of Known/Suspected MRSA, Hx Shingles, Hx Tuberculosis, History Other Infectious Disease, Traveled Outside the [place] in Last 30 Days - Family History Known Family History: Positive: Hypertension, Diabetes, Other - cancer Negative: Cardiac Disease - Social History Alcohol Use: None Hx Substance Use: No Substance Use Type: Reports: None Hx Tobacco Use: No Smoking Status (MU): Never Smoked Tobacco Have You Smoked in the Last Year: No Review of Systems Constitutional: Other - positive - dizziness, high BG Positive: Chest Pain All Other Systems Reviewed And Are Negative: Yes Physical Exam - Summary Physical Exam Summary: VITAL SIGNS: Reviewed. GENERAL: Patient is a well-developed and obese male who is lying comfortable in the stretcher. Patient is not in any acute respiratory distress. HEAD AND FACE: No signs of trauma. No ecchymosis, hematomas or skull depressions. No sinus tenderness. EYES: PERRLA, EOMI x 2, No injected conjunctiva, no nystagmus. EARS: Hearing grossly intact. Ear canals and tympanic membranes are within normal limits. MOUTH: Oropharynx within normal limits. NECK: Supple, trachea is midline, no adenopathy, no JVD, no carotid bruit, no c- spine tenderness, neck with full ROM. CHEST: Symmetric, no tenderness at palpation. LUNGS: Clear to auscultation bilaterally. No wheezing or crackles. Patient is on 2 L o2, which is his baseline. CVS: Regular rate and rhythm, S1 and S2 present, no murmurs or gallops appreciated. ABDOMEN: Soft, non-tender. No signs of distention. No rebound, no guarding, and no masses palpated. Bowel sounds are normal. EXTREMITIES: FROM in all major joints, no edema, no cyanosis or clubbing. NEURO: Alert and oriented x 3. No acute neurological deficits. Speech is normal and follows commands. SKIN: Dry and warm. Triage Information Reviewed: Yes Vital Signs On Initial Exam: Initial Vitals Temp Pulse Resp BP Pulse Ox 97.0 F 82 20 145/79 99 03/29/19 19:35 03/29/19 19:35 03/29/19 19:35 03/29/19 19:35 03/29/19 19:35 Vital Signs Reviewed: Yes Procedures - Sedation Patient Received Moderate/Deep Sedation with Procedure: No Diagnostics - Vital Signs Vital Signs Temp Pulse Resp BP Pulse Ox 03/29/19 20:00 78 18 99 03/29/19 19:37 80 18 145/79 100 03/29/19 19:35 97.0 F 82 20 145/79 99 - Laboratory Lab Results: Lab Results 03/29/19 03/29/19 03/29/19 Range/Units 19:50 20:40 20:40 WBC 8.0 (3.5-10.8) 10^3/uL RBC 4.84 (4.18-5.48) 10^6 /uL Hgb 13.7 L (14.0-18.0) g/dL Hct 40 L (42-52) % MCV 83 (80-94) fL MCH 28 (27-31) pg MCHC 34 (31-36) g/dL RDW 16 H (10-15) % Plt Count 156 (150-450) 10^3/uL MPV 7.6 (7.4-10.4) fL Neut % (Auto) 79.3 % Lymph % (Auto) 12.3 % [place] % (Auto) 5.6 % Eos % (Auto) 2.0 % Baso % (Auto) 0.8 % Absolute Neuts (auto) 6.4 (1.5-7.7) 10^3/ul Absolute Lymphs (auto) 1.0 (1.0-4.8) 10^3/ul Absolute Monos (auto) 0.5 (0-0.8) 10^3/ul Absolute Eos (auto) 0.2 (0-0.6) 10^3/ul Absolute Basos (auto) 0.1 (0-0.2) 10^3/ul Absolute Nucleated RBC 0.0 10^3/ul Nucleated RBC % 0.1 VBG pH (7.32-7.43) VBG pCO2 (41-51) mmHg VBG pO2 (35-45) mmHg VBG HCO3 (24-28) mmol/L VBG O2 Saturation (70-80) % VBG Base Excess (0.0-4.0) mmol/L Sodium 135 (135-145) mmol/L Potassium 4.2 (3.5-5.0) mmol/L Chloride 100 L (101-111) mmol/L Carbon Dioxide 28 (22-32) mmol/L Anion Gap 7 (2-11) mmol/L BUN 16 (6-24) mg/dL Creatinine 0.94 (0.67-1.17) mg/dL Est GFR ( Amer) 106.5 (>60) Est GFR (Non-Af Amer) 88.0 (>60) BUN/Creatinine Ratio 17.0 (8-20) Glucose 249 H (70-100) mg/dL POC Glucose (mg/dL) 301 H (70-100) mg/dL Lactic Acid (0.5-2.0) mmol/L Calcium 9.1 (8.6-10.3) mg/dL Magnesium 2.0 (1.9-2.7) mg/dL Total Bilirubin 0.50 (0.2-1.0) mg/dL AST 11 L (13-39) U/L ALT 13 (7-52) U/L Alkaline Phosphatase 44 (34-104) U/L Total Creatine Kinase 20 (10-223) U/L C-Reactive Protein 22.97 H (<8.01) mg/L Total Protein 6.2 L (6.4-8.9) g/dL Albumin 4.1 (3.2-5.2) g/dL Globulin 2.1 (2-4) g/dL Albumin/Globulin Ratio 2.0 (1-3) Serum Alcohol < 10 (<10) mg/dL 03/29/19 03/29/19 Range/Units 20:40 20:41 WBC (3.5-10.8) 10^3/uL RBC (4.18-5.48) 10^6 /uL Hgb (14.0-18.0) g/dL Hct (42-52) % MCV (80-94) fL MCH (27-31) pg MCHC (31-36) g/dL RDW (10-15) % Plt Count (150-450) 10^3/uL MPV (7.4-10.4) fL Neut % (Auto) % Lymph % (Auto) % [place] % (Auto) % Eos % (Auto) % Baso % (Auto) % Absolute Neuts (auto) (1.5-7.7) 10^3/ul Absolute Lymphs (auto) (1.0-4.8) 10^3/ul Absolute Monos (auto) (0-0.8) 10^3/ul Absolute Eos (auto) (0-0.6) 10^3/ul Absolute Basos (auto) (0-0.2) 10^3/ul Absolute Nucleated RBC 10^3/ul Nucleated RBC % VBG pH 7.37 (7.32-7.43) VBG pCO2 50 (41-51) mmHg VBG pO2 17.0 L (35-45) mmHg VBG HCO3 25.1 (24-28) mmol/L VBG O2 Saturation 38.0 L (70-80) % VBG Base Excess 2.7 (0.0-4.0) mmol/L Sodium (135-145) mmol/L Potassium (3.5-5.0) mmol/L Chloride (101-111) mmol/L Carbon Dioxide (22-32) mmol/L Anion Gap (2-11) mmol/L BUN (6-24) mg/dL Creatinine (0.67-1.17) mg/dL Est GFR ( Amer) (>60) Est GFR (Non-Af Amer) (>60) BUN/Creatinine Ratio (8-20) Glucose (70-100) mg/dL POC Glucose (mg/dL) (70-100) mg/dL Lactic Acid 1.2 (0.5-2.0) mmol/L Calcium (8.6-10.3) mg/dL Magnesium (1.9-2.7) mg/dL Total Bilirubin (0.2-1.0) mg/dL AST (13-39) U/L ALT (7-52) U/L Alkaline Phosphatase (34-104) U/L Total Creatine Kinase (10-223) U/L C-Reactive Protein (<8.01) mg/L Total Protein (6.4-8.9) g/dL Albumin (3.2-5.2) g/dL Globulin (2-4) g/dL Albumin/Globulin Ratio (1-3) Serum Alcohol (<10) mg/dL Result Diagrams: 03/29/19 20:40 03/29/19 20:40 Lab Statement: Any lab studies that have been ordered have been reviewed, and results considered in the medical decision making process. - EKG 1940 Cardiac Rate: NL - rate of 80 BPM EKG Rhythm: Sinus Rhythm EKG Comparison: No Significant Change - EKG is similar to 01/18/19 EKG Summary of EKG Findings: EKG showed NSR with rate of 80 BPM, no ST elevations, EKG is similar to 01/18/19 EKG. ED physician has reviewed and interpreted this EKG. Re-Evaluation - Re-Evaluation First Eval Re-Evaluation Time: 21:15 Change: Improved Comment: Patient reports improvement of Sx. Patient to be discharged to home. Complex Multi-Symp Course/Dx Assessment/Plan: Patient is a 44 y/o diabetic male presenting to [facility] via EMS with complaints of hyperglycemia and CP. He states that he was walking around and making dinner without his o2 on when he began to experience right-sided sharp chest pain that radiated down his right arm. He took ASA and CP resolved. Patient continued to prepare dinner and then experienced a room-spinning dizziness. He measured his BG, which resulted in the 480s. Patient called his medical provider and he was advised to come to ED for evaluation. While EMS was en route, he measured BG again and states that it was 551. Patient reports administering insulin. He states that his BG this morning was 346. Patient notes that he was being worked up at [facility] for pulmonary HTN and his BGs after discharge had been in 100s-200s. In the ED course the patient was placed on a cardiac rehab nurse, IV access was obtained, IV fluids started. Blood test w/o a significant abnormality except for slight normocytic normochromic anemia hemoglobin 13.7 hematocrit 40, chloride is 100, glucose 249, AST 7, CRP of 22.9, total protein 6.2. Before the patient came into the ER he gave himself 21 units of NovoLog as per his sliding scale. After the patient was given fluids, the glucose is 249. I discussed the findings and test results with the patient and he feels comfortable going home and he will monitor his sugars at home. Patient is asymptomatic and he will be going home with his sister. - Diagnoses Provider Diagnoses: Uncontrolled diabetes mellitus, Hyperglycemia Discharge ED - Sign-Out/Discharge Documenting (check all that apply): Patient Departure - discharge - Discharge Plan Condition: Stable Disposition: HOME Patient Education Materials: Diabetic Hyperglycemia (ED) Referrals: Chong Oliveros MD [Primary Care Provider] - 3 Days Additional Instructions: PLEASE RETURN TO ED FOR ANY NEW OR WORSENING SYMPTOMS. PLEASE FOLLOW UP WITH YOUR PRIMARY CARE PHYSICIAN WITHIN THREE DAYS. - Billing Disposition and Condition Condition: STABLE Disposition: Home - Attestation Statements Document Initiated by Rhoda: Yes Documenting Scribe: HILARY AKERS Provider For Whom Rhoda is Documenting (Include Credential): SHREE BAIG MD Scribe Attestation: I, HILARY AKERS, scribed for SHREE BAIG MD on 03/29/19 at 2155. Scribe Documentation Reviewed: Yes Provider Attestation: The documentation as recorded by the HILARY colon accurately reflects the service I personally performed and the decisions made by me, SHREE BAIG MD Status of Scribe Document: Viewed
[2019-03-29 21:47] VITALS: BP 119/69
== END 2019-03-29 21:47 | disposition home or self-care (01) ==
LOC: ED 19:07
DX: E11.65 Type 2 diabetes mellitus with hyperglycemia (principal); I10 Essential (primary) hypertension; J45.909 Unspecified asthma, uncomplicated; F41.9 Anxiety disorder, unspecified; Z86.711 Personal history of pulmonary embolism; Z79.01 Long term (current) use of anticoagulants; Z79.899 Other long term (current) drug therapy; Z88.8 Allergy status to other drugs, medicaments and biological substances
CPT/HCPCS: 36415; 80053; 80320; 82550; 82803; 83605; 83735; 85025; 86140; 93005; 99283; G0480

== ENCOUNTER 2019-03-31 16:12 | Inpatient (IN) | payer MEDICARE, MEDICAID ==
[2019-03-31] MEDS ORDERED: NS 0.9% 1000 ML** 1,000 ML IV ONE (16:26)
[2019-03-31] MEDS ORDERED: Acetaminophen TAB* 325 MG PO ONE (16:27)
--- NOTE | 2019-03-31 16:31 | ED ---
HPI Febrile Illness - HPI Summary HPI Summary: Patient brought in by EMS from home for report of new onset fever starting this morning, with associated chills, mild headache, dizziness and myalgias. Patient with multiple medical comorbidities including pulmonary hypertension, diabetes and morbid obesity. Denies nausea, vomiting, diarrhea, CP/SOB, abdominal pain, dysuria. - History of Current Complaint Chief Complaint: EDFever Time Seen by Provider: 03/31/19 16:14 Hx Obtained From: Patient Pain Intensity: 0 - Additional Pertinent History Primary Care Physician: OSCAR - Allergy/Home Medications Allergies/Adverse Reactions: Allergies Allergy/AdvReac Type Severity Reaction Status Date / Time bee venom protein (honey bee) Allergy Anaphylatic Verified 03/31/19 16:38 Shock dextromethorphan Allergy Nausea Verified 03/31/19 16:38 [From Mucinex DM] glipizide Allergy See Comment Verified 03/31/19 16:38 guaifenesin [From Mucinex DM] Allergy Nausea Verified 03/31/19 16:38 ibuprofen [From Motrin] Allergy rash/kidneys Verified 03/31/19 16:38 shut down nitroglycerin Allergy See Comment Verified 03/31/19 16:38 orange oil Allergy hives Uncoded 03/29/19 19:33 diff breathing Home Medications: Home Medications Insulin Lispro Protamin/Lispro [Humalog Mix 75-25 10 ML Vial] 40 units SUBCUT DAILY 03/31/19 [History Confirmed 03/31/19] Insulin Lispro [Admelog 100 units/ml 10 ml VIAL] 0 units SUBCUT .SEE INSTRUCTIONS 03/31/19 [History Confirmed 03/31/19] Spironolactone TAB* [Aldactone TAB*] 50 mg PO BID 03/31/19 [History Confirmed ] PMH/Surg Hx/FS Hx/Imm Hx Endocrine/Hematology History: Reports: Hx Diabetes Denies: Hx Thyroid Disease, Hx Anemia, Hx Unexplained Bleeding Cardiovascular History: Reports: Hx Hypertension Denies: Hx Aneurysm, Hx Angina, Hx Auto Implanted Cardiovert Defib, Hx Cardiac Arrest, Hx Congenital Heart Disease, Hx Congestive Heart Failure, Hx Coronary Artery Disease, Hx Deep Vein Thrombosis, Hx Embolism, Hx Hypercholesterolemia, Hx Hypotension, Hx Myocardial Infarction, Hx Pacemaker/ICD , Hx Peripheral Vascular Disease, Hx Rheumatic Fever, Hx Syncope, Hx Valvular Heart Disease, Other Cardiovascular Problems/Disorders Respiratory History: Reports: Hx Asthma, Hx Pulmonary Embolism - currently on xarelto, Hx Sleep Apnea - uses cpap, Other Respiratory Problems/Disorders - pulmonary HTN, obstructive hypoventilation Denies: Hx Chronic Obstructive Pulmonary Disease (COPD), Hx Cystic Fibrosis, Hx Lung Cancer, Hx Pleural Effusion, Hx Pneumonia, Hx Pulmonary Edema, Hx Seasonal Allergies GI History: Denies: Hx Cirrhosis, Hx Crohn's Disease, Hx Diverticulosis, Hx Gall Bladder Disease, Hx Gastroesophageal Reflux Disease, Hx Gastrointestinal Bleed, Hx Hiatal Hernia, Hx Irritable Bowel, Hx Jaundice, Hx Obstructive Bowel, Hx Ileostomy, Hx Pyloric Stenosis, Hx Ulcer, Other GI Disorders History: Reports: Other Problems/Disorders - kidney "issues" when he takes ibuprofen Denies: Hx Acute Renal Failure, Hx Benign Prostatic Hyperplasia, Hx Chronic Renal Failure, Hx Dialysis, Hx Kidney Infection, Hx Kidney Stones, Hx Renal Disease Musculoskeletal History: Reports: Hx Gout Denies: Hx Arthritis, Hx Back Problems, Hx Bursitis, Hx Congenital Bone Abnormalities, Hx Fibromyalgia, Hx Osteoporosis, Hx Scoliosis, Hx Tendonitis, Other Musculoskeletal History Sensory History: Reports: Hx Contacts or Glasses Denies: Hx Cataracts, Hx Eye Injury, Hx Eye Prosthesis, Hx Glaucoma, Hx Legally Blind, Hx Macular Degeneration, Hx Vision Problem, Hx Deafness, Hx Hearing Aid, Hx Hearing Problem, Other Sensory Impairments Opthamlomology History: Reports: Hx Contacts or Glasses Denies: Hx Cataracts, Hx Eye Injury, Hx Eye Prosthesis, Hx Glaucoma, Hx Legally Blind, Hx Macular Degeneration, Hx Vision Problem, Other Sensory Impairments Neurological History: Reports: Other Neuro Impairments/Disorders - previous diagnosis of vertigo Denies: Hx Dementia, Hx Developmental Delay, Hx Headaches, Hx Migraine, Hx Nerve Disease, Hx Seizures, Hx Spinal Cord Injury, Hx Transient Ischemic Attacks (TIA) Psychiatric History: Reports: Hx Anxiety, Hx Depression, Hx Community Mental Health Tx, Hx Suicide Attempt Denies: Hx Attention Deficit Hyperactivity Disorder, Hx Autism, Hx Eating Disorder, Hx Panic Disorder, Hx Post Traumatic Stress Disorder, Hx Inpatient Treatment, Hx Schizophrenia, Hx Bipolar Disorder, Hx of Violent Episodes Against Others - Cancer History Cancer Type, Location and Year: none - Surgical History Surgery Procedure, Year, and Place: RIGHT WRIST FRACTURE, SCREWS PLACED. Hx Anesthesia Reactions: No - Immunization History Date of Tetanus Vaccine: UNKNOWN Infectious Disease History: No Infectious Disease History: Denies: Hx Clostridium Difficile, Hx Hepatitis, Hx Human Immunodeficiency Virus (HIV), Hx of Known/Suspected MRSA, Hx Shingles, Hx Tuberculosis, History Other Infectious Disease, Traveled Outside the [place] in Last 30 Days - Family History Known Family History: Positive: Hypertension, Diabetes, Other - cancer Negative: Cardiac Disease - Social History Alcohol Use: None Hx Substance Use: No Substance Use Type: Reports: None Hx Tobacco Use: No Smoking Status (MU): Never Smoked Tobacco Have You Smoked in the Last Year: No Review of Systems Positive: Chills Negative: Chest Pain Negative: Shortness Of Breath Negative: Abdominal Pain, Vomiting, Nausea Negative: dysuria Positive: Myalgia Neurological: Other - Dizziness Positive: Headache All Other Systems Reviewed And Are Negative: Yes Physical Exam - Summary Physical Exam Summary: Constitutional: Well-developed, morbidly obese, Alert. (-) Distressed Skin: Warm, Dry HENT: Normocephalic; Atraumatic Eyes: Conjunctiva normal Neck: Musculoskeletal ROM normal neck. (-) JVD, (-) Stridor, (-) Tracheal deviation Cardio: Rhythm regular, rate tachycardic, Heart sounds normal; Intact distal pulses; Radial pulses are 2+ and symmetric. (-) Murmur Pulmonary/Chest wall: Effort normal. (-) Respiratory distress, (-) Wheezes, (-) Rales Abd: Soft, (-) tenderness, (-) Distension, (-) Guarding, (-) Rebound Musculoskeletal: (-) Edema Lymph: (-) Cervical adenopathy Neuro: Alert, Oriented x3 Psych: Mood and affect Normal Triage Information Reviewed: Yes Vital Signs On Initial Exam: Initial Vitals Temp Pulse Resp BP Pulse Ox 101.9 F 111 22 130/58 98 03/31/19 16:16 03/31/19 16:16 03/31/19 16:16 03/31/19 16:16 03/31/19 16:16 Vital Signs Reviewed: Yes Procedures - Sedation Patient Received Moderate/Deep Sedation with Procedure: No Diagnostics - Vital Signs Vital Signs Temp Pulse Resp BP Pulse Ox 03/31/19 16:16 101.9 F 111 22 130/58 98 - Laboratory Lab Results: Lab Results 03/31/19 Range/Units 16:22 Influenza A (Rapid) Pending Influenza B (Rapid) Pending Result Diagrams: 03/31/19 16:36 03/31/19 16:51 Lab Statement: Any lab studies that have been ordered have been reviewed, and results considered in the medical decision making process. - Radiology Right Foot XR Radiology Interpretation Completed By: Radiologist Summary of Radiographic Findings: 1. No fracture or erosion is idenfitied. 2. Degenerative changes as above. ED Provider has reviewed this report. CXR Radiology Interpretation Completed By: Radiologist Summary of Radiographic Findings: Hypoinflated lungs with basilar airspace opacification (atelectasis versus infiltrate). ED Provider has reviewed this report. Course/Dx - Course Course Of Treatment: Patient brought in by EMS from home for report of new onset fever starting this morning, with associated chills, mild headache, dizziness and myalgias. Patient with multiple medical comorbidities including pulmonary hypertension, diabetes and morbid obesity. CXR reveals Hypoinflated lungs with basilar airspace opacification (atelectasis versus infiltrate). Labs reveal WBC 13.3 H, Hgb 13.4 L, Hct 40 L, RDW 16 H, Plt Count 132 L, Absolute Neuts 12.5 H, Absolute Lymphs 0.3 L, Sodium 131 L, Chloride 98 L, Glucose 237 H , Direct bilirubin 0.20 H, AST 11 L, Total Protein 6.3 L. Zithromax, Tylenol, and Ceftriaxone Sodium were administered in the ED. Dr. Paz, Hospitalist, accepted the patient for admission. This plan was discussed with the patient and he was agreeable with this plan. - Febrile Illness Differential Diagnoses: Pneumonia - Diagnoses Provider Diagnoses: Pneumonia Discharge ED - Sign-Out/Discharge Documenting (check all that apply): Patient Departure - Admission - Discharge Plan Condition: Stable Disposition: ADMITTED TO [facility] - Billing Disposition and Condition Condition: STABLE Disposition: Admitted to [facility] - Attestation Statements Document Initiated by Marysolibe: Yes Documenting Scribe: Jr Masterson Provider For Whom Rhoda is Documenting (Include Credential): DO Rhoda Talbot Attestation: Jr Luna scribed for Corey Ballard DO on 03/31/19 at 2010. Scribe Documentation Reviewed: Yes Provider Attestation: The documentation as recorded by the Jr colon accurately reflects the service I personally performed and the decisions made by , Corey Ballard DO Status of Scribe Document: Viewed
[2019-03-31 16:43] LABS: Influenza A Molecular Negative (Negative); Influenza B Molecular Negative (Negative)
[2019-03-31 16:59] LABS: ABS Lymphocytes 0.3 10^3/ul (1.0-4.8); ABS Monocytes 0.5 10^3/ul (0-0.8); ABS Neutrophils 12.5 10^3/ul (1.5-7.7); Eosinophil % 0.1 %; Hematocrit 40 % (42-52); Hemoglobin 13.4 g/dL (14.0-18.0); Mean Corpuscular HGB Conc 33 g/dL (31-36); Mean Corpuscular Hemoglobin 28 pg (27-31); Mean Corpuscular Volume 83 fL (80-94); Platelet Count 132 10^3/uL (150-450); Red Blood Count 4.81 10^6 /uL (4.18-5.48); Red Cell Distribution Width 16 % (10-15); White Blood Count 13.3 10^3/uL (3.5-10.8)
[2019-03-31 17:16] LABS: BUN/Creatinine Ratio 14.1 (8-20); Calcium 8.7 mg/dL (8.6-10.3); EGFR African American 109.2 (>60); EGFR Non-African American 90.2 (>60); Potassium 4.4 mmol/L (3.5-5.0)
[2019-03-31] MEDS ORDERED: cefTRIAXone(*) 1 GM in NS 0.9% 50 ML* 50 ML IVPB ONE (17:38)
[2019-03-31 17:43] LABS: Albumin 4.1 g/dL (3.2-5.2); Albumin/Globulin Ratio 1.9 (1-3); Globulin 2.2 g/dL (2-4); Indirect Bilirubin 0.6 mg/dL (0.3-1.0); Total Bilirubin 0.8 mg/dL (0.2-1.0); Total Protein 6.3 g/dL (6.4-8.9)
[2019-03-31] MEDS ORDERED: Azithromycin 500 mg/250 ml NS 500 MG/250 ML BAG IVPB ONE (18:22)
[2019-03-31] MEDS ORDERED: Dextrose 50% Syringe 50 ML* 25 GM/50 ML SYRINGE IV PUSH PRN (19:39)
[2019-03-31 20:29] LABS: C Reactive Protein 115.25 mg/L (<8.01)
[2019-03-31] MEDS: NS 0.9% 1000 ML** 1,000 ML IV SCH (21:55)
[2019-03-31] MEDS: Mirtazapine TAB* 15 MG PO SCH (21:55)
[2019-03-31] MEDS: Allopurinol TAB* 100 MG PO SCH (21:55)
[2019-03-31] MEDS: Carvedilol TAB* 3.125 MG PO SCH (21:55)
--- NOTE | 2019-03-31 21:59 | HP ---
CC: Dr. Oliveros * [facility] MEDICINE HISTORY AND PHYSICAL: DATE OF ADMISSION: 03/31/19 PRIMARY CARE PHYSICIAN: Dr. Oliveros. ATTENDING PHYSICIAN: Dr. Taty Paz * (dictation provided by Elayne Borden NP ). CHIEF COMPLAINT: Fever. HISTORY OF PRESENT ILLNESS: Mr. Urbina is a 44-year-old male with a past medical history of pulmonary hypertension, on 2 to 3 L nasal cannula at home; pulmonary embolism; type 2 diabetes, which is insulin dependent; and morbid obesity, who presents today to the hospital with concern for fever. Mr. Urbina states that he has been in normal state of health with no acute health concerns until about 24 hours ago. At that time, he developed fever. He has had some mild dizziness. He has a history of the same. He has had no cough, no chest pain, no shortness of breath. No nausea, vomiting, diarrhea or abdominal pain. He states that he has had a chronic callus to the bottom of his right foot that is unchanged. No other wounds are known. In the emergency room, Mr. Urbina was confirmed to have a fever, running to 103. His labs show a mild leukocytosis to 13.3. No bandemia. A CRP is pending. His lactic acid was normal. His blood pressure is stable. His urinalysis is pending. His chest x-ray shows potential small bibasilar infiltrates versus atelectasis, low likely favor atelectasis. The patient was given IV fluids and intravenous antibiotics in the ED. PAST MEDICAL HISTORY: 1. History of PE, on Xarelto. 2. History of pulmonary hypertension, on chronic O2 with chronic hypoxic respiratory failure. 3. Gout. 4. Sleep apnea. 5. Type 2 diabetes, which is insulin dependent. 6. Panic disorder. 7. Morbid obesity. OUTPATIENT MEDICATIONS: 1. Humalog 75/25 of 40 units subcutaneously daily. 2. Spironolactone 50 mg p.o. b.i.d. 3. Lispro insulin via sliding scale. 4. Bupropion XL 450 mg p.o. daily. 5. Ambrisentan 10 mg p.o. daily. 6. Allopurinol 100 mg p.o. b.i.d. 7. Carvedilol 3.125 mg p.o. b.i.d. 8. Atorvastatin 10 mg p.o. daily. 9. Tadalafil 40 mg p.o. daily. 10. Torsemide 20 mg p.o. daily. 11. Rivaroxaban 20 mg p.o. daily. 12. Mirtazapine 15 mg p.o. at bedtime. 13. Loratadine 10 mg p.o. daily. ALLERGIES: 1. BEE VENOM. 2. DEXTROMETHORPHAN. 3. GLIPIZIDE. 4. GUAIFENESIN. 5. IBUPROFEN. 6. NITROGLYCERIN. 7. OLIVE OIL. FAMILY HISTORY: The patient's mother had CHF, sister had an [place], grandfather had diabetes, and his grandmother had a skin cancer. SOCIAL HISTORY: No report of alcohol, tobacco or drug use. He states that his or mother would be the healthcare proxy. REVIEW OF SYSTEMS: A 14-point review of systems was completed with Mr. Urbina and all those not mentioned above were negative. PHYSICAL EXAMINATION GENERAL: Mr. Urbina is sitting in the bed, in no acute distress. VITAL SIGNS: Temperature 102.2, pulse rate 101, respiratory rate 22, O2 saturation 93% on 3 L nasal cannula, and blood pressure 130/58. LUNGS: Clear to auscultation. There is no accessory muscle use and good aeration. HEART: S1, S2. No murmur, rub, or gallop and regular. ABDOMEN: Soft, nontender with bowel sounds positive x4. EXTREMITIES: No cyanosis. Positive for nonpitting edema and skin. The patient has an oval 4-inch x 2-inch callus to the bottom of his right foot. He states that he has been seeing engineer intern for this. There is no erythema. There is no drainage. NEUROLOGIC: He is alert. He is oriented x3. He moves all extremities equally. There is no facial asymmetry or focal weakness. Extraocular movements are intact. DIAGNOSTIC STUDIES/LAB DATA: WBC 13.3, hemoglobin 13.4, hematocrit 40, platelet count 132. Sodium 131, potassium 4.4, chloride 98, serum bicarbonate 25, BUN 13, creatinine 0.92, glucose 237. Flu swab is negative. Again, chest x-ray shows concern for possible bibasilar atelectasis versus small consolidation. He had a foot x-ray, which showed "no fracture or erosions " identified. Degenerative changes as above. ASSESSMENT AND PLAN: Mr. Urbina is a 44-year-old male with a past medical history of pulmonary embolism, on Xarelto; pulmonary hypertension with chronic hypoxic respiratory failure, on home O2 as well as sleep apnea; type 2 diabetes and morbid obesity, who presents today to the hospital with concern for fever. Our plans are for inpatient admission as I expect his length of stay to be greater than 2 days for the followin. Sepsis. The source of this has not quite clear. Certainly, his chest x- ray could represent early findings of pneumonia. He does not have a cough. He is not anymore hypoxic than usual. His urinalysis is pending and I will follow up with the ED regarding that. His blood cultures have been sent. His lactic acid is normal. His flu swab is negative. I have added on strep pneumo, urine , and legionella urinary antigens. For now, plan to treat with ceftriaxone and azithromycin while we continue to monitor him clinically and adjust that as needed. He will have intravenous fluids overnight as well. 2. Obstructive sleep apnea. The patient has had CPAP ordered. 3. Type 2 diabetes. Plan to switch from 75/25 Humalog to Lantus. We will start with 20 units in a.m. and this can be adjusted as needed based on clinical course. He will also have lispro sliding scale. He will have consistent carbohydrate diet. 4. History of hypertension. Plan to hold spironolactone and torsemide given his acute infection, but we will continue carvedilol. 5. History of DVT. Continue rivaroxaban. 6. History of pulmonary embolism. We will continue tadalafil and ambrisentan if his can bring those medications in from home. 7. Depression and anxiety. Continue his bupropion. 8. Hyperlipidemia. Continue atorvastatin. 9. History of gout. Continue allopurinol. 10. DVT prophylaxis, with Xarelto. 11. Code status is full code. TIME SPENT: Approximately 60 minutes was spent on the admission of this patient , more than half the time was spent with the patient at the bedside reviewing the events leading up to this hospitalization, performing the physical examination, and reviewing my plan of care. ELAYNE BORDEN NP [id number]/[facility] #: [id number] TAVO
[2019-04-01 07:00] LABS: ABS Lymphocytes 0.5 10^3/ul (1.0-4.8); ABS Monocytes 0.5 10^3/ul (0-0.8); ABS Neutrophils 6.6 10^3/ul (1.5-7.7); Hematocrit 35 % (42-52); Lymphocyte % 7.1 %; Mean Corpuscular HGB Conc 35 g/dL (31-36); Mean Corpuscular Hemoglobin 28 pg (27-31); Mean Corpuscular Volume 82 fL (80-94); Mean Platelet Volume 7.4 fL (7.4-10.4); Platelet Count 118 10^3/uL (150-450); Red Blood Count 4.23 10^6 /uL (4.18-5.48); Red Cell Distribution Width 16 % (10-15); White Blood Count 7.7 10^3/uL (3.5-10.8)
[2019-04-01 07:17] LABS: Calcium 7.9 mg/dL (8.6-10.3); EGFR African American 107.8 (>60); EGFR Non-African American 89.1 (>60); Potassium 3.7 mmol/L (3.5-5.0)
[2019-04-01] MEDS: BuPROPion XL* 150 MG TAB.XL PO SCH (09:22)
[2019-04-01] MEDS: Rivaroxaban TAB(*) 20 MG TAB PO SCH (09:22)
[2019-04-01] MEDS: Allopurinol TAB* 100 MG PO SCH ×2 (09:22→21:44)
[2019-04-01] MEDS: Carvedilol TAB* 3.125 MG PO SCH ×2 (09:22→21:44)
[2019-04-01] MEDS: Atorvastatin* 10 MG TAB PO SCH (09:22)
[2019-04-01] MEDS: BuPROPion XL* 300 MG TAB.XL PO SCH (09:22)
--- NOTE | 2019-04-01 09:36 | PN ---
Subjective Date of Service: 04/01/19 Interval History: Mr. Urbina is not feeling well today. Not any better or worse than yesterday. General malaise, no specific complaints other than feeling dizzy. Denies CP, SOB , cough, urinary symptoms. He endorses a poor appetite and feels tired. Baseline oxygen requirement is 2L. No concerns from nursing. Family History: Unchanged from Admission Social History: Unchanged from Admission Past Medical History: Unchanged from Admission Objective Active Medications: Acetaminophen (Tylenol Tab*) 650 mg PO Q6H PRN PAIN - MILD Allopurinol (Zyloprim Tab*) 100 mg PO BID [facility] Atorvastatin Calcium (Lipitor*) 10 mg PO DAILY [facility] Bupropion HCl (Wellbutrin Xl *) 150 mg PO DAILY [facility] Bupropion HCl (Bupropion Xl*) 300 mg PO DAILY [facility] Carvedilol (Coreg Tab*) 3.125 mg PO BID [facility] Dextrose (D50w Syringe 50 Ml*) 12.5 gm IV PUSH .FOR FS < 60 - SS PRN FS < 60 Ceftriaxone Sodium 1 gm/ (Sodium Chloride) 50 mls @ 100 mls/hr IVPB Q24H [facility] Azithromycin 250 mg/ Sodium (Chloride) 250 mls @ 250 mls/hr IVPB Q24H [facility] Sodium Chloride (Ns 0.9% 1000 Ml) 1,000 mls @ 75 mls/hr IV PER RATE [facility] Insulin Glargine (Lantus(*)) 20 units SUBCUT QAM [facility] Insulin Human Lispro (Humalog*) 0 units SUBCUT AC [facility]; Protocol Mirtazapine (Remeron Tab*) 15 mg PO BEDTIME [facility] Non-Formulary Medication (Ambrisentan [Letairis]) 10 mg PO DAILY [facility] Rivaroxaban (Xarelto(*)) 20 mg PO DAILY [facility] Tadalafil (Adcirca (Nf)) 40 mg PO DAILY [facility]; Protocol Vital Signs - 8 hr 04/01/19 03:59 Temperature 99.4 F Pulse Rate 88 Respiratory 24 Rate Blood Pressure 105/41 (mmHg) O2 Sat by Pulse 97 Oximetry Oxygen Devices in Use Now: Nasal Cannula - 4L Appearance: Middle-aged male sitting in bed in NAD Ears/Nose/Mouth/Throat: Mucous Membranes Moist Neck: NL Appearance and Movements; NL JVP, Trachea Midline Respiratory: Symmetrical Chest Expansion and Respiratory Effort, Clear to Auscultation Cardiovascular: NL Sounds; No Murmurs; No JVD, RRR Abdominal: NL Sounds; No Tenderness; No Distention Extremities: No Edema Neurological: Alert and Oriented x 3 Lines/Tubes/Other Access: Clean, Dry and Intact Peripheral IV Nutrition: Taking PO's Result Diagrams: 04/01/19 06:52 04/01/19 06:52 Assess/Plan/Problems-Billing Assessment: Mr. Urbina is a 44 yo M with PMH of PE, pHTN with chronic hypoxic respiratory failure on 2L, gout, NILES, DM2, panic disorder, morbid obesity; who presented to the ED with c/o fever and was found to be meeting sepsis criteria with source unclear. - Patient Problems (1) Sepsis Comment: - Meeting criteria on admission with fever, leukocytosis, tachycardia, tachypnea ; normal lactic - Source unclear, but treating for likely pneumonia d/t possible infiltrates noted on CXR - Negative flu swab - Elevated CRP - Blood cultures and UA pending - Continue ceftriaxone, azithromycin pending further results (2) Pulmonary hypertension Code(s): I27.20 - PULMONARY HYPERTENSION, UNSPECIFIED Comment: - Continue ambrisentan, Adcirca (3) Type 2 diabetes mellitus Comment: - Poorly controlled - Continue Lantus, Lispro SS (4) History of venous thromboembolism Code(s): Z86.718 - PERSONAL HISTORY OF OTHER VENOUS THROMBOSIS AND EMBOLISM Comment: - Continue Xarelto (5) Chronic respiratory failure with hypoxia Comment: - Baseline 2L (6) HTN (hypertension) Code(s): I10 - ESSENTIAL (PRIMARY) HYPERTENSION Comment: - Normotensive - Hold torsemide, spironolactone - Continue carvedilol (7) Sleep apnea Code(s): G47.30 - SLEEP APNEA, UNSPECIFIED Comment: - CPAP (8) History of gout Code(s): Z87.39 - PERSONAL HISTORY OF DISEASES OF THE MS SYS AND CONN TISS Comment: - Continue allopurinol (9) Morbid obesity with BMI of 60.0-69.9, adult Code(s): E66.01 - MORBID (SEVERE) OBESITY DUE TO EXCESS CALORIES; Z68.44 - BODY MASS INDEX (BMI) 60.0-69.9, ADULT Comment: - BMI 61 (10) Depression Code(s): F32.9 - MAJOR DEPRESSIVE DISORDER, SINGLE EPISODE, UNSPECIFIED Comment: - Continue bupropion, mirtazapine (11) DVT prophylaxis Comment: - Xarelto (12) Full code status Code(s): Z78.9 - OTHER SPECIFIED HEALTH STATUS Comment: Status and Disposition: Inpatient. Anticipate d/c home when medically stable. Attending: Taty Paz
[2019-04-01] MEDS: Insulin LISPRO* 1 UNITS UNIT SUBCUT SCH ×3 (09:39→17:32)
[2019-04-01] MEDS: Insulin GLARGINE(*) 1 UNITS UNIT SUBCUT SCH (09:40)
[2019-04-01] MEDS: AMBRISENTAN 10 MG PO SCH (09:40)
[2019-04-01] MEDS: TADALAFIL 20 MG PO SCH (09:40)
[2019-04-01 10:28] LABS: Urine Appearance Clear; Urine Bilirubin Negative (Negative); Urine Blood Negative (Negative); Urine Color Amber; Urine Glucose 1+(50 mg/dL) (Negative); Urine Ketones Trace (Negative); Urine Nitrite Negative (Negative); Urine Protein 2+(100 mg/dL) (Negative); Urine Specific Gravity 1.023 (1.010-1.030); Urine Urobilinogen Negative (Negative)
[2019-04-01 10:29] LABS: Urine Bacteria Absent (Absent); Urine Red Blood Cell Absent (Absent); Urine White Blood Cell Trace(0-5/hpf) (Absent)
[2019-04-01] MEDS: NS 0.9% 1000 ML** 1,000 ML IV SCH (14:00)
[2019-04-01] MEDS: cefTRIAXone(*) 1 GM in NS 0.9% 50 ML* 50 ML IVPB SCH (17:39)
[2019-04-01] MEDS: Azithromycin IV(*) 250 MG in NS 0.9% 250 ML* 250 ML IVPB SCH (18:18)
[2019-04-01 21:08] LABS: Troponin I 0.22 ng/mL (<0.03)
[2019-04-01] MEDS ORDERED: Aspirin 81 mg CHEW TAB* 81 MG TAB.CHEW PO ONE (21:10)
--- NOTE | 2019-04-01 21:38 | PN ---
Hospitalist Progress Note Date of Service: 04/01/19 called for chest pain at 1999, ekg ordered and trops, patient with no chest pain now, called 2100 trop 0.22, patient with no chest pain, at this point, described pain previous as right sided, sharp stabbing worse with breathing, will give asa , transfer to 4s, echo in am trops, and ekg later tonight, suspect demand ischemia in setting of PNA and sepsis,
[2019-04-01] MEDS: Mirtazapine TAB* 15 MG PO SCH (21:44)
[2019-04-01] MEDS: Acetaminophen TAB* 325 MG PO PRN (21:47)
[2019-04-01 23:50] LABS: Troponin I 0.31 ng/mL (<0.03)
[2019-04-02] MEDS: Nystatin TOP POWDER* 15 GM BTL TOPICAL SCH ×4 (00:16→22:11)
[2019-04-02 07:13] LABS: ABS Eosinophils 0.1 10^3/ul (0-0.6); ABS Lymphocytes 0.6 10^3/ul (1.0-4.8); ABS Monocytes 0.6 10^3/ul (0-0.8); ABS Neutrophils 5.3 10^3/ul (1.5-7.7); Eosinophil % 0.8 %; Hematocrit 34 % (42-52); Hemoglobin 11.5 g/dL (14.0-18.0); Lymphocyte % 9.7 %; Mean Corpuscular HGB Conc 34 g/dL (31-36); Mean Corpuscular Hemoglobin 28 pg (27-31); Mean Corpuscular Volume 83 fL (80-94); Mean Platelet Volume 7.7 fL (7.4-10.4); Platelet Count 105 10^3/uL (150-450); Red Blood Count 4.07 10^6 /uL (4.18-5.48); Red Cell Distribution Width 16 % (10-15); White Blood Count 6.7 10^3/uL (3.5-10.8)
[2019-04-02 07:29] LABS: BUN/Creatinine Ratio 13.3 (8-20); Calcium 8.1 mg/dL (8.6-10.3); EGFR Non-African American 92.5 (>60); Potassium 4.2 mmol/L (3.5-5.0)
[2019-04-02 07:34] LABS: Troponin I 0.27 ng/mL (<0.03)
[2019-04-02] MEDS: Insulin GLARGINE(*) 1 UNITS UNIT SUBCUT SCH (08:00)
[2019-04-02] MEDS: Carvedilol TAB* 3.125 MG PO SCH ×2 (08:01→21:57)
[2019-04-02] MEDS: Atorvastatin* 10 MG TAB PO SCH (08:01)
[2019-04-02] MEDS: BuPROPion XL* 300 MG TAB.XL PO SCH (08:01)
[2019-04-02] MEDS: Insulin LISPRO* 1 UNITS UNIT SUBCUT SCH ×3 (08:01→17:04)
[2019-04-02] MEDS: Allopurinol TAB* 100 MG PO SCH ×2 (08:01→21:57)
[2019-04-02] MEDS: Rivaroxaban TAB(*) 20 MG TAB PO SCH (08:01)
[2019-04-02] MEDS ORDERED: Perflutren Lipid Microsphere* 3 ML VIAL ONE (09:43)
--- NOTE | 2019-04-02 11:31 | PN ---
Subjective Date of Service: 04/02/19 Interval History: Mr. Urbina is still feeling poor this morning. General malaise and some dizziness, but the dizziness is improved from yesterday. He had CP overnight, no further episodes of pain. Denies SOB, N/V, diaphoresis. No concerns from nursing. Family History: Unchanged from Admission Social History: Unchanged from Admission Past Medical History: Unchanged from Admission Objective Active Medications: Acetaminophen (Tylenol Tab*) 650 mg PO Q6H PRN PAIN - MILD Allopurinol (Zyloprim Tab*) 100 mg PO BID [facility] Atorvastatin Calcium (Lipitor*) 10 mg PO DAILY [facility] Bupropion HCl (Wellbutrin Xl *) 150 mg PO DAILY [facility] Bupropion HCl (Bupropion Xl*) 300 mg PO DAILY [facility] Carvedilol (Coreg Tab*) 3.125 mg PO BID [facility] Dextrose (D50w Syringe 50 Ml*) 12.5 gm IV PUSH .FOR FS < 60 - SS PRN FS < 60 Ceftriaxone Sodium 1 gm/ (Sodium Chloride) 50 mls @ 100 mls/hr IVPB Q24H [facility] Azithromycin 250 mg/ Sodium (Chloride) 250 mls @ 250 mls/hr IVPB Q24H [facility] Sodium Chloride (Ns 0.9% 1000 Ml) 1,000 mls @ 75 mls/hr IV PER RATE [facility] Insulin Glargine (Lantus(*)) 20 units SUBCUT QAM [facility] Insulin Human Lispro (Humalog*) 0 units SUBCUT AC [facility]; Protocol Mirtazapine (Remeron Tab*) 15 mg PO BEDTIME [facility] Pto - Ambrisentan [ (Letairis] 10 Mg) 10 mg PO DAILY [facility] Nystatin (Nystatin Top Powder*) 1 applic TOPICAL TID [facility] Rivaroxaban (Xarelto(*)) 20 mg PO DAILY [facility] Tadalafil (Adcirca (Nf)) 40 mg PO DAILY [facility]; Protocol Vital Signs - 8 hr 04/02/19 04/02/19 04/02/19 03:40 07:29 07:38 Temperature 97.2 F 96.7 F Pulse Rate 80 82 Respiratory 18 16 16 Rate Blood Pressure 125/81 101/48 (mmHg) O2 Sat by Pulse 100 100 Oximetry Oxygen Devices in Use Now: Nasal Cannula - 4L Appearance: Middle-aged male lying in bed in NAD Ears/Nose/Mouth/Throat: Mucous Membranes Moist Neck: NL Appearance and Movements; NL JVP, Trachea Midline Respiratory: Symmetrical Chest Expansion and Respiratory Effort, Clear to Auscultation Cardiovascular: NL Sounds; No Murmurs; No JVD, RRR Neurological: Alert and Oriented x 3 Lines/Tubes/Other Access: Clean, Dry and Intact Peripheral IV Nutrition: Taking PO's Result Diagrams: 04/02/19 06:59 04/02/19 06:59 Assess/Plan/Problems-Billing Assessment: Mr. Urbina is a 44 yo M with PMH of PE, pHTN with chronic hypoxic respiratory failure on 2L, gout, NILES, DM2, panic disorder, morbid obesity; who presented to the ED with c/o fever and was found to be meeting sepsis criteria with source unclear. - Patient Problems (1) Sepsis Comment: - Meeting criteria on admission with fever, leukocytosis, tachycardia, tachypnea ; normal lactic - Source unclear, but treating for likely pneumonia d/t possible infiltrates noted on CXR - Negative flu swab, negative BC, negative UA - Elevated CRP - Continue ceftriaxone, azithromycin (2) Elevated troponin Code(s): R79.89 - OTHER SPECIFIED ABNORMAL FINDINGS OF BLOOD CHEMISTRY Comment : - Episode of CP last night and was noted to have elevated trop peaking at 0.31 then trending down - No further episodes of CP or anginal equivalents; suspect CP last night was r/ t pneumonia - EKG unchanged compared to 2019 - Suspect demand ischemia, but will continue to monitor on tele (3) Pulmonary hypertension Code(s): I27.20 - PULMONARY HYPERTENSION, UNSPECIFIED Comment: - Continue ambrisentan, Adcirca (4) Type 2 diabetes mellitus Comment: - Poorly controlled - Continue Lantus, Lispro SS (5) History of venous thromboembolism Code(s): Z86.718 - PERSONAL HISTORY OF OTHER VENOUS THROMBOSIS AND EMBOLISM Comment: - Continue Xarelto (6) Chronic respiratory failure with hypoxia Comment: - Baseline 2L (7) HTN (hypertension) Code(s): I10 - ESSENTIAL (PRIMARY) HYPERTENSION Comment: - Normotensive - Hold torsemide, spironolactone - Continue carvedilol (8) Sleep apnea Code(s): G47.30 - SLEEP APNEA, UNSPECIFIED Comment: - CPAP (9) History of gout Code(s): Z87.39 - PERSONAL HISTORY OF DISEASES OF THE MS SYS AND CONN TISS Comment: - Continue allopurinol (10) Morbid obesity with BMI of 60.0-69.9, adult Code(s): E66.01 - MORBID (SEVERE) OBESITY DUE TO EXCESS CALORIES; Z68.44 - BODY MASS INDEX (BMI) 60.0-69.9, ADULT Comment: - BMI 61 (11) Depression Code(s): F32.9 - MAJOR DEPRESSIVE DISORDER, SINGLE EPISODE, UNSPECIFIED Comment: - Continue bupropion, mirtazapine (12) DVT prophylaxis Comment: - Xarelto (13) Full code status Code(s): Z78.9 - OTHER SPECIFIED HEALTH STATUS Comment: Status and Disposition: Inpatient. Anticipate d/c home when medically stable. Attending: Kierra Butler
[2019-04-02] MEDS: AMBRISENTAN 10 MG PO SCH (12:55)
[2019-04-02] MEDS: TADALAFIL 20 MG PO SCH (12:55)
--- NOTE | 2019-04-02 12:55 | ECHO ---
*[facility]* [place] [address] Fax #: [phone] Transthoracic Echocardiogram Patient: Trae Urbina : 1975 Study Date: 04/02/2019 Age: 44 Gender: M HR: 84 bpm Height: 68 in /172.7 cm BSA: 2.74 m^2 Weight: 399.2 lb /181.4 kg BMI: 60.8 kg/m^2 *Admin Assistant: * Yudelka Hernandez [facility] *Referring Physician: * Olu JuddReading Physician: * Vinay Torres MD Indications: Chest Pain, unspecified. History: Pulmonary Embolism. Risk factors: Hypertension. Diabetes mellitus. Morbidly obese. Dyslipidemia. Conclusions Summary: - Left ventricle: Systolic function is normal. The estimated ejection fraction is 55-60%. Wall motion is normal; there are no regional wall motion abnormalities. - Right ventricle: Systolic function is normal. - Mitral valve: There is no significant regurgitation. - Aortic valve: There is no evidence of stenosis. - Tricuspid valve: There is trace regurgitation. - Pulmonary arteries: Systolic pressure can not be accurately estimated. - Compared to study of 11/22/18, the left ventricle function is the same, PASP could not be compared Study data: Transthoracic echocardiogram. Procedure: Transthoracic echocardiography was performed. Image quality was suboptimal. Intravenous Definity , 4 mlswas administered. Image enhancement administered by FRANKI Rodriguez. Complete 2D, spectral Doppler, and color flow Doppler. Location: Bedside. Patient status: Inpatient. Patient room number: 444 02. Rhythm: Normal sinus rhythm. Findings Left ventricle: The cavity size is normal. Wall thickness is moderately increased. Systolic function is normal. The estimated ejection fraction is 55-60%. Wall motion is normal; there are no regional wall motion abnormalities. Left ventricular diastolic function parameters are normal. Right ventricle: The cavity size is normal. Systolic function is normal. Ventricular septum: There is septal flattening of the interventricular septum consistent with RV volume or pressure overload. Left atrium: The atrium is normal in size. Right atrium: The atrium is mildly dilated. Mitral valve: The leaflets are mildly thickened. There is no evidence of stenosis. There is no significant regurgitation. Aortic valve: The valve is probably trileaflet. The leaflets are mildly thickened. There is no evidence of stenosis. There is no significant regurgitation. Tricuspid valve: The leaflets are normal thickness. There is no evidence of stenosis. There is trace regurgitation. Pulmonic valve: Not well visualized. There is no significant regurgitation. Aorta: The aortic root appears normal. The aortic arch appears normal. Pericardium: There is no significant pericardial effusion. Pulmonary arteries: Systolic pressure can not be accurately estimated. Systemic veins: Inferior vena cava: The vessel is normal in size. There is (>= 50%) respiratory change in the IVC dimension. Measurements Left ventricle Value Ref Aortic valve Value Ref RADHA, LAX 5.1 cm 4.2 - 5.8 Miah diam, ED 2.2 cm ---- ESD, LAX 3.8 cm 2.5 - 4.0 Peak v, S 2.04 m/sec ---- FS, LAX 25 % 25 - 43 VTI, S 40.9 cm ---- PW, ED, LAX (H) 1.4 cm 0.6 - 1.0 Mean grad, S 9.0 mm Hg ---- E', lat miah, TDI 11.0 cm/sec >=10.0 Peak grad, S 17.0 mm Hg ---- E/e', lat miah, 10 TDI Mitral valve Value Ref E', med miah, TDI 11.3 cm/sec >=7.0 Peak E 1.13 m/sec ---- E/e', med miah, 10 Peak A 0.57 m/sec -- -- TDI Decel time 177 ms ---- E', avg, TDI 11.2 cm/sec Peak grad, D 5.1 mm Hg -- -- E/e', avg, TDI 10 <=14 Peak E/A ratio 2 ---- LVOT Value Ref Pulmonic valve Value Ref Peak arlene, S 1.5 m/sec Peak v, S 0.94 m/sec ---- Peak grad, S 9 mm Hg Peak grad, S 4.0 mm Hg ---- Mean grad, S 5 mm Hg Aortic root Value Ref Ventricular septum Value Ref Root diam 3.1 cm <4.7 IVS, ED (H) 1.4 cm 0.6 - 1.0 Root max diam, ED 3.1 cm <4.7 Right ventricle Value Ref Ascending aorta Value Ref RADHA, LAX 3.1 cm AAo AP diam, S 3.2 cm ---- AAo AP diam/bsa, S 1.2 cm/m^2 ---- Left atrium Value Ref AP dim, ES (H) 4.20 cm 3.00 - Aortic arch Value Ref 4.00 Arch diam 2.9 cm ---- ML dim, A4C 3.7 cm SI dim, A4C 5.7 cm Decending aorta Value Ref Vol/bsa, ES, A/L 23 ml/m^2 16 - 34 Chauncey peak arlene 1.06 m/sec ---- Right atrium Value Ref Inferior vena cava Value Ref SI dim, ES 5.3 cm 3.4 - 5.3 Diam 2.1 cm ---- ML dim, ES, A4C (H) 4.6 cm 2.6 - 4.4 SI dim, ES, A4C 5.3 cm 3.4 - 5.3 SI dim/bsa, ES, 1.9 cm/m^2 1.8 - 3.0 A4C Estimated RAP 8 mm Hg Legend: (L) and (H) deb values outside specified reference range. Prepared and electronically signed by Vinay Torres MD 04/02/2019 12:54
[2019-04-02] MEDS: BuPROPion XL* 150 MG TAB.XL PO SCH (12:58)
[2019-04-02] MEDS: cefTRIAXone(*) 1 GM in NS 0.9% 50 ML* 50 ML IVPB SCH (17:04)
[2019-04-02] MEDS: Azithromycin IV(*) 250 MG in NS 0.9% 250 ML* 250 ML IVPB SCH (18:23)
[2019-04-02] MEDS: NS 0.9% 1000 ML** 1,000 ML IV SCH (18:26)
[2019-04-02] MEDS: Mirtazapine TAB* 15 MG PO SCH (21:57)
[2019-04-02] MEDS: Acetaminophen TAB* 325 MG PO PRN (21:57)
[2019-04-03] MEDS: NS 0.9% 1000 ML** 1,000 ML IV SCH (09:05)
[2019-04-03] MEDS: Atorvastatin* 10 MG TAB PO SCH (09:05)
[2019-04-03] MEDS: Carvedilol TAB* 3.125 MG PO SCH ×2 (09:05→20:47)
[2019-04-03] MEDS: Allopurinol TAB* 100 MG PO SCH ×2 (09:05→20:47)
[2019-04-03] MEDS: Nystatin TOP POWDER* 15 GM BTL TOPICAL SCH ×3 (09:06→21:02)
[2019-04-03] MEDS: BuPROPion XL* 300 MG TAB.XL PO SCH (09:06)
[2019-04-03] MEDS: BuPROPion XL* 150 MG TAB.XL PO SCH (09:06)
[2019-04-03] MEDS: AMBRISENTAN 10 MG PO SCH (09:06)
[2019-04-03] MEDS: TADALAFIL 20 MG PO SCH (09:06)
[2019-04-03] MEDS: Insulin LISPRO* 1 UNITS UNIT SUBCUT SCH ×3 (09:06→17:29)
[2019-04-03] MEDS: Rivaroxaban TAB(*) 20 MG TAB PO SCH (09:06)
[2019-04-03] MEDS: Insulin GLARGINE(*) 1 UNITS UNIT SUBCUT SCH (09:07)
[2019-04-03] MEDS: cefTRIAXone(*) 1 GM in NS 0.9% 50 ML* 50 ML IVPB SCH (16:44)
[2019-04-03] MEDS: Azithromycin IV(*) 250 MG in NS 0.9% 250 ML* 250 ML IVPB SCH (17:29)
--- NOTE | 2019-04-03 17:55 | PN ---
Subjective Date of Service: 04/03/19 Interval History: Mr. Urbina states that he has had no fever since yesterday afternoon. He c/o sweats last night. He c/o dry cough last night, but none today. Also c/o abd pain in RLQ yesterday, which was transient and went away with Tylenol. He is on 2L O2 at home at rest, 4L with activity; currently on 3L and satting well. He is walking without difficulty. He denies CP. No other complaints today. Family History: Unchanged from Admission Social History: Unchanged from Admission Past Medical History: Unchanged from Admission Objective Active Medications: Acetaminophen (Tylenol Tab*) 650 mg PO Q6H PRN PRN Reason: PAIN - MILD Last Admin: 04/02/19 21:57 Dose: 650 mg Allopurinol (Zyloprim Tab*) 100 mg PO BID [facility] Last Admin: 04/03/19 09:05 Dose: 100 mg Atorvastatin Calcium (Lipitor*) 10 mg PO DAILY [facility] Last Admin: 04/03/19 09:05 Dose: 10 mg Bupropion HCl (Wellbutrin Xl *) 150 mg PO DAILY [facility] Last Admin: 04/03/19 09:06 Dose: 150 mg Bupropion HCl (Bupropion Xl*) 300 mg PO DAILY [facility] Last Admin: 04/03/19 09:06 Dose: 300 mg Carvedilol (Coreg Tab*) 3.125 mg PO BID [facility] Last Admin: 04/03/19 09:05 Dose: 3.125 mg Dextrose (D50w Syringe 50 Ml*) 12.5 gm IV PUSH .FOR FS < 60 - SS PRN PRN Reason: FS < 60 Ceftriaxone Sodium 1 gm/ (Sodium Chloride) 50 mls @ 100 mls/hr IVPB Q24H [facility] Last Admin: 04/03/19 16:44 Dose: 100 mls/hr Azithromycin 250 mg/ Sodium (Chloride) 250 mls @ 250 mls/hr IVPB Q24H [facility] Last Admin: 04/03/19 17:29 Dose: 250 mls/hr Sodium Chloride (Ns 0.9% 1000 Ml) 1,000 mls @ 75 mls/hr IV PER RATE [facility] Last Admin: 04/03/19 09:05 Dose: 75 mls/hr Insulin Glargine (Lantus(*)) 20 units SUBCUT QAM [facility] Last Admin: 04/03/19 09:07 Dose: 20 units Insulin Human Lispro (Humalog*) 0 units SUBCUT AC [facility]; Protocol Last Admin: 04/03/19 17:29 Dose: 3 units Mirtazapine (Remeron Tab*) 15 mg PO BEDTIME [facility] Last Admin: 04/02/19 21:57 Dose: 15 mg Pto - Ambrisentan [ (Letairis] 10 Mg) 10 mg PO DAILY [facility] Last Admin: 04/03/19 09:06 Dose: 10 mg Nystatin (Nystatin Top Powder*) 1 applic TOPICAL TID [facility] Last Admin: 04/03/19 12:28 Dose: 1 applic Rivaroxaban (Xarelto(*)) 20 mg PO DAILY [facility] Last Admin: 04/03/19 09:06 Dose: 20 mg Tadalafil (Adcirca (Nf)) 40 mg PO DAILY [facility]; Protocol Last Admin: 04/03/19 09:06 Dose: 40 mg Vital Signs: Temp Pulse Resp BP Pulse Ox 98.0 F 79 22 115/59 100 04/03/19 15:28 04/03/19 15:28 04/03/19 15:28 04/03/19 15:28 04/03/19 15:28 Oxygen Devices in Use Now: Nasal Cannula Appearance: Mr. Urbina is an obese middle-aged white male who is sitting at edge of bed with LE at floor. He appears to have mild increased work of breathing and is currently on 3L NC. Eyes: No Scleral Icterus, PERRLA Ears/Nose/Mouth/Throat: NL Teeth, Lips, Gums, Clear Oropharnyx, Mucous Membranes Moist Neck: NL Appearance and Movements; NL JVP, Trachea Midline Respiratory: Symmetrical Chest Expansion and Respiratory Effort, Clear to Auscultation Cardiovascular: NL Sounds; No Murmurs; No JVD, RRR Abdominal: NL Sounds; No Tenderness; No Distention, No Hepatosplenomegaly Extremities: No Edema, No Clubbing, Cyanosis Skin: - - mild erythema to R medial leg, distal to knee; tender to palpation Neurological: Alert and Oriented x 3 Result Diagrams: 04/02/19 06:59 04/02/19 06:59 Additional Lab and Data: Lab Results 03/31/19 Range/Units 16:22 Influenza A (Rapid) Pending Influenza B (Rapid) Pending Microbiology and Other Data: Microbiology 03/31/19 17:28 Aerobic Blood Culture - Preliminary Blood Venous No Growth Day 3 Anaerobic Blood Culture - Preliminary No Growth Day 3 03/31/19 17:16 Aerobic Blood Culture - Preliminary Blood Venous No Growth Day 3 Anaerobic Blood Culture - Preliminary No Growth Day 3 04/01/19 09:25 Urine Culture - Final Urine 04/01/19 09:25 Legionella Urinary Antigen - Final Urine Negative Legionella Antigen Streptococcus pneumoniae Ag Screen - Final Negative S. pneumo Antigen Assess/Plan/Problems-Billing Assessment: Mr. Urbina is a 44 yo M with PMH of PE, pHTN with chronic hypoxic respiratory failure on 2L, gout, NILES, DM2, panic disorder, morbid obesity; who presented to the ED with c/o fever and was found to be meeting sepsis criteria with source unclear. - Patient Problems (1) Sepsis Comment: - Meeting criteria on admission with fever, leukocytosis, tachycardia, tachypnea ; normal lactic - Source unclear, but treating for likely pneumonia d/t possible infiltrates noted on CXR - Negative flu swab, negative BC, negative UA - Elevated CRP - Continue ceftriaxone, azithromycin (2) Pneumonia Comment: -bibasilar infiltrates on CXR -suspect pna as source of sepsis -pt improving -continue ceftriaxone, azithromycin (3) Right leg pain Comment: -pt c/o RLE pain -mild erythema to r medial leg, distal to knee; tender to palpation -US for DVT, although low suspicion d/t on DOAC -likely cellulitis; continue abx (4) Elevated troponin Comment: - Episode of CP last night and was noted to have elevated trop peaking at 0.31 then trending down - No further episodes of CP or anginal equivalents; suspect CP last night was r/ t pneumonia - EKG unchanged compared to 2019 - Suspect demand ischemia, but will continue to monitor on tele (5) Type 2 diabetes mellitus Comment: - Poorly controlled with BG 160-280's - Continue Lantus, Lispro SS (6) HTN (hypertension) Comment: - SBP 100-120's - Hold torsemide, spironolactone - Continue carvedilol (7) Pulmonary hypertension Comment: - Continue ambrisentan, Adcirca (8) Chronic respiratory failure with hypoxia Comment: - Baseline 2L (9) History of venous thromboembolism Comment: - Continue Xarelto (10) Depression Comment: - Continue bupropion, mirtazapine (11) History of gout Comment: - Continue allopurinol (12) Morbid obesity with BMI of 60.0-69.9, adult Comment: - BMI 61 (13) Sleep apnea Comment: - CPAP (14) DVT prophylaxis Comment: - Xarelto (15) Full code status Comment: Status and Disposition: Inpatient. Anticipate d/c home when medically stable.
[2019-04-03] MEDS: Acetaminophen TAB* 325 MG PO PRN (20:44)
[2019-04-03] MEDS: Mirtazapine TAB* 15 MG PO SCH (20:44)
[2019-04-04] MEDS: NS 0.9% 1000 ML** 1,000 ML IV SCH (02:09)
[2019-04-04] MEDS: Acetaminophen TAB* 325 MG PO PRN (04:46)
[2019-04-04] MEDS: Insulin GLARGINE(*) 1 UNITS UNIT SUBCUT SCH (08:32)
[2019-04-04] MEDS: Insulin LISPRO* 1 UNITS UNIT SUBCUT SCH ×3 (08:32→17:33)
[2019-04-04] MEDS: BuPROPion XL* 300 MG TAB.XL PO SCH (08:33)
[2019-04-04] MEDS: Rivaroxaban TAB(*) 20 MG TAB PO SCH (08:33)
[2019-04-04] MEDS: Carvedilol TAB* 3.125 MG PO SCH (08:33)
[2019-04-04] MEDS: BuPROPion XL* 150 MG TAB.XL PO SCH (08:33)
[2019-04-04] MEDS: TADALAFIL 20 MG PO SCH (08:34)
[2019-04-04] MEDS: Allopurinol TAB* 100 MG PO SCH (08:34)
[2019-04-04] MEDS: Atorvastatin* 10 MG TAB PO SCH (08:34)
[2019-04-04] MEDS: AMBRISENTAN 10 MG PO SCH (08:34)
[2019-04-04] MEDS: Nystatin TOP POWDER* 15 GM BTL TOPICAL SCH ×2 (08:35→15:43)
--- NOTE | 2019-04-04 11:06 | CONSULT ---
Subjective Date of Service: 04/04/19 Interval History: Mr. Urbina is a 43 yo male with PMH significant for PE on Xarelto, pulmonary HTN, GOUT, NILES, DM2, morbid obesity, panic disorder, and anxiety; who presented to the hospital with complaints of fever. He was admitted to the hospital for sepsis of unknown cause, and is being treated for community acquired PNA and right LE cellulitis. He presented to the hospital with a large callous to the plantar aspect of his right foot. He has followed with Podiatry and the [facility] for this in the past. He has not been using anything on the area. Patient seen and examined at bedside. Verbal consent obtained for wound consultation and and photograph. Family History: Unchanged from Admission Social History: Unchanged from Admission Past Medical History: Unchanged from Admission Review of Systems - Measurements Intake and Output: Intake and Output Last 24 Hours 04/02/19 04/03/19 04/04/19 04/05/19 06:59 06:59 06:59 06:59 Intake Total 1781 2784 3134 406 Output Total 700 0 700 Balance 1081 2784 2434 406 Intake: IV Fluids 581 1574 1476 126 NS (0.9%) 581 1574 1476 126 IVPB 258 Azithromycin 258 Oral 1200 1210 1400 280 Output: Urine 700 0 700 Other: Estimated Void Medium # Bowel Movements 0 0 Estimated Stool Amount Medium # Voids 1 1 - Review of Systems Constitutional Symptoms: Negative: Fever, Other - Chills Dermatology: Positive: Other - callous to the right foot Objective Active Medications: Acetaminophen (Tylenol Tab*) 650 mg PO Q6H PRN Reason: PAIN - MILD Allopurinol (Zyloprim Tab*) 100 mg PO BID [facility] Atorvastatin Calcium (Lipitor*) 10 mg PO DAILY [facility] Bupropion HCl (Wellbutrin Xl *) 150 mg PO DAILY [facility] Bupropion HCl (Bupropion Xl*) 300 mg PO DAILY [facility] Carvedilol (Coreg Tab*) 3.125 mg PO BID [facility] Dextrose (D50w Syringe 50 Ml*) 12.5 gm IV PUSH .FOR FS < 60 - SS PRN Reason: FS < 60 Ceftriaxone Sodium 1 gm/ (Sodium Chloride) 50 mls @ 100 mls/hr IVPB Q24H [facility] Azithromycin 250 mg/ Sodium (Chloride) 250 mls @ 250 mls/hr IVPB Q24H [facility] Insulin Glargine (Lantus(*)) 20 units SUBCUT QAM [facility] Insulin Human Lispro (Humalog*) 0 units SUBCUT AC [facility]; Protocol Mirtazapine (Remeron Tab*) 15 mg PO BEDTIME [facility] Pto - Ambrisentan [ (Letairis] 10 Mg) 10 mg PO DAILY [facility] Nystatin (Nystatin Top Powder*) 1 applic TOPICAL TID [facility] Rivaroxaban (Xarelto(*)) 20 mg PO DAILY [facility] Tadalafil (Adcirca (Nf)) 40 mg PO DAILY [facility]; Protocol Vital Signs 04/04/19 04/04/19 04/04/19 03:15 07:17 07:41 Temperature 98.1 F 97.6 F Pulse Rate 65 66 Respiratory 16 22 20 Rate Blood Pressure 102/48 129/68 (mmHg) O2 Sat by Pulse 100 99 Oximetry Oxygen Devices in Use Now: Nasal Cannula, CPAP Appearance: NAD, laying in bed Ears/Nose/Mouth/Throat: Mucous Membranes Moist Respiratory: Symmetrical Chest Expansion and Respiratory Effort Extremities: - - 1+ DP pulse on the right Skin: - - See skin note below Nutrition: Taking PO's Result Diagrams: 04/02/19 06:59 04/02/19 06:59 Diagnostic Imagin. Exam Date: 04/03/191839 - Exam: US Duplex Right Lower Extremity Veins, Limited IMPRESSION: No right extremity deep vein thrombosis. Skin Deviation Note - Skin Deviation Findings Right plantar foot - There is a large callous, measures 4.5 cm x 3 cm. There is evidence of a deep tissue injury or blood blister at 11 o'clock. The skin is intact and there is no drainage. Wound Problem/Plan Assessment: Mr. Urbina is a 43 yo male with PMH significant for PE on Xarelto, pulmonary HTN, GOUT, NILES, DM2, morbid obesity, panic disorder, and anxiety; who presented to the hospital with complaints of fever. He was admitted to the hospital for sepsis of unknown cause, and is being treated for community acquired PNA and right LE celllulitis. He presented to the hospital with a large callous to the plantar aspect of his right foot. 1. Right plantar foot wound. Suspect this represents a diabetic ulcer with a callous, there may be a component of trauma. Recommend applying Amlactin lotion to the area daily. DP pulse is 1+. Consider ABIs to evaluate circulation. He should continue to follow with his Pre Fabricator, or could be referred back to the wound center at discharge. The callous will need to be be pared again. He should be encouraged to followup with [facility] to be fitted for orthotics. 2. DM2. HgA1C 11.2 on 10/25/18. Maintain glycemic control to allow for wound healing. 3. History of PE. Pt is on Xarelto, this may affect wound healing. 4. Obesity. BMI 61. 5. Diet. Consistent Carbohydrate. 6. Code Status. Full Code Status. 7. Disposition. Inpatient, disposition per primary medicine team. TIME SPENT: Time for this wound consultation was 20 minutes and 10 minutes was spent with the patient discussing past medical history; assessing, measuring, and photographing the wound. Is Patient a Wound Clinic Patient: No - Has followed in the past, was discharged in January 2019 Attending: Priscilla Elizalde
[2019-04-04 15:57] VITALS: BP 105/46
--- NOTE | 2019-04-05 03:39 | DS ---
CC: Dr. Chong Oliveros * DISCHARGE SUMMARY: DATE OF ADMISSION: 03/31/19 DATE OF DISCHARGE: 04/04/19 PRIMARY CARE PROVIDER: Dr. Chong Oliveros. ATTENDING PHYSICIAN: Dr. Asha Enriquez * (dictated by PHYLLIS Gordon) PRIMARY DIAGNOSES: 1. Sepsis. 2. Bibasilar community-acquired pneumonia. 3. Right lower extremity cellulitis. 4. Elevated troponin in the setting of sepsis and pneumonia, suspect demand ischemia. SECONDARY DIAGNOSES: 1. Diabetes mellitus type 2, insulin dependent. 2. Pulmonary hypertension. 3. Chronic hypoxic respiratory failure, on O2. 4. Obstructive sleep apnea. 5. Morbid obesity. 6. History of pulmonary embolism, on Xarelto. 7. Gout. 8. Panic disorder. STUDIES WHILE IN THE HOSPITAL: 1. Chest x-ray, impression: Hypoinflated lungs with basilar airspace opacification (atelectasis versus infiltrate). 2. Right foot x-ray, impression: No fracture or erosion is identified. Degenerative changes above. 3. Transthoracic echocardiogram. Summary: LV systolic function normal, estimated EF 55% to 60%, wall motion normal. No regional wall motion abnormalities. RV systolic function normal, significant MR. No evidence of , trace TR, pulmonary artery systolic pressure cannot be accurately estimated. 4. Ultrasound right lower extremity, impression: No right extremity DVT. DISCHARGE MEDICATIONS: Home medications: 1. Allopurinol 100 mg p.o. b.i.d. 2. Ambrisentan 10 mg p.o. daily. 3. Atorvastatin 10 mg p.o. daily. 4. Bupropion 450 mg p.o. daily. 5. Carvedilol 3.125 mg p.o. b.i.d. 6. Insulin Lispro sliding scale. 7. Insulin Humalog 75/25 40 units subcu daily. 8. Loratadine 10 mg p.o. daily. 9. Mirtazapine 15 mg p.o. at bedtime. 10. Rivaroxaban 20 mg p.o. daily. 11. Tadalafil 40 mg p.o. daily. New home medications: 1. Azithromycin 250 mg p.o. daily x1. 2. Cefdinir 300 mg p.o. b.i.d. Discontinued home medications: 1. Torsemide. 2. Spironolactone. HISTORY OF PRESENT ILLNESS/HOSPITAL COURSE: Mr. Urbina is a 44-year-old male with a past medical history of pulmonary hypertension, hypoxic respiratory failure, history of PE, insulin-dependent diabetes, and morbid obesity, who presented to the ER on 03/31/19 with the complaints of fever as well as associated dizziness. He was admitted having met sepsis criteria with fever, leukocytosis, tachycardia, and tachypnea. Lactic acid was within normal limits. The patient was admitted. Suspected source of the infection is pneumonia, therefore the patient was started ceftriaxone and azithromycin. Urine for legionella and Strep pneumo was negative. Blood cultures were negative x2 sets. The patient continued ceftriaxone and azithromycin for presumed pneumonia having a reported occasional dry cough, fever, and bibasilar infiltrates on chest x-ray. The patient initially required 4 L of oxygen, but was weaned down to his home dose of 2 L by the end of his stay. CRP at admission was 115, on the day of discharge his CRP is down to 79. He feels as if he is improved. He has been afebrile since his first night of admission. He reports that his cough is improved. Has been up ambulating with PT with minimal complaints. The patient does report some mild dizziness with ambulation , which he is being worked up for with his primary care provider currently. It is important to note that the patient's blood pressure was low to normal throughout his stay. His home spironolactone and torsemide were discontinued. The patient states these are his blood pressure medications and are not used for lower extremity edema, again they were helped throughout his stay and his blood pressure at discharge was systolic of 100 to 120s, recommendations were made for daily blood pressure monitoring and logging and follow up with primary care provider. The patient should also monitor for the improvement or worsening dizziness and report this to his primary care provider as there is some suspicion that the patient's dizziness is due to hypotension or orthostasis. The patient reportedly had chest pain on the second night of this inpatient stay. EKG was ordered and troponins were trended. His pain was pleuritic in nature. His EKG was unchanged when compared to 2019. Troponins were trended and peaked at 0.31, then trended down. He had no other episodes of chest pain the following morning and a transthoracic echocardiogram was obtained and showed no regional wall motion abnormalities. Again, his chest pain never recurred. His chest pain was likely due to demand ischemia in the setting of sepsis and pneumonia. The patient's reported right lower extremity pain in the calf area, he had a mild area of erythema that he reported was tender to the touch at the mediolateral aspect of the right leg distal to the knee. Again, this area was very mildly erythematous and tender to palpation. The patient reports that he has a history of cellulitis in this area. He also has a history of DVT and therefore an ultrasound of the right lower extremity was obtained. There was no noted DVT. The patient will be continued on antibiotics for treatment of community-acquired pneumonia, which will cover his right lower extremity cellulitis. He was instructed to return for worsening of redness, increase in spread of redness or worsening pain. The patient also has a large callus that appears to have a blood blister underneath the right plantar surface of the foot ; he has had this for some time. The patient was discharged from the wound clinic in January with instructions to continue AmLactin and obtain proper pair of footwear. Wound consult was obtained and recommendations were made to follow up with Podiatry or wound clinic as this callus need to be pared. This should be done within the next 1 to 2 weeks. The patient expresses understanding. He has also been encouraged to obtain a new pair of proper footwear. The patient states he is feeling much better and is agreeable to discharge home. He does have a very occasional dry cough. He is back on his home oxygen dose and reports no fevers, chills, night sweats. His leukocytosis is resolved and he has not had any tachycardia. A flu test was obtained in the ER and was negative. The patient denies headache, chest pain, shortness of breath, abdominal pain, nausea, vomiting, diarrhea, constipation, myalgias, or arthralgias except his right medial lower extremity pain. Mr. Urbina is stable for discharge home. PHYSICAL EXAMINATION: Vital Signs: Temperature 97.7 oral, heart rate 75, respiratory rate 20, oxygen saturation 100% on 2 L, blood pressure 105/46. General: Mr. Urbina is a well-developed, well-nourished morbidly obese middle - aged white male, who is sitting up in bed. He appears to be in no acute distress. He is breathing comfortably on his home oxygen dose of 2 L. HEENT: PERRL. EOMI. Nonicteric sclerae. Hearing is grossly intact. Oral mucosa membranes are moist. There are no lesions. Pharynx is clear. The tongue is at midline. Palate elevates symmetrically. Cardiovascular regular rate and rhythm with S1, S2 present. No murmurs, rubs, clicks, or gallops. There is no JVD or peripheral edema. Pulmonary: Symmetrical chest expansion without use of accessory muscles. Clear to auscultation bilaterally without rhonchi, wheeze , or rales. Abdomen: Obese. Bowel sounds in all quadrants, soft, nontender to palpation. Musculoskeletal: Full range of motion. There is a mildly erythematous area distal to the right knee at the mediolateral aspect. This area is very tender to palpation. Homans' sign is negative, nontender elsewhere. On the plantar surface of the right foot, there is a large callus with what appears to be blood underneath, callus is unopened. It is nontender to palpation. Neuro: The patient is awake. He is alert and oriented x3. Cranial nerves II through XII are grossly intact. Muscle strength 5/5 bilaterally in upper and lower extremities. DISCHARGE PLAN: Mr. Urbina will be discharged to home. CONDITION: Fair, improved. DIET: 1. Heart healthy. 2. ADA/diabetic. ACTIVITY: As tolerated. MEDICATIONS: 1. Continue azithromycin x1 dose due tonight. 2. Continue Cefdinir b.i.d. starting tonight. 3. Discontinue spironolactone and torsemide; monitor blood pressure as described below. EDUCATION: 1. Check blood pressure at least once daily and record time and blood pressure , bring this to primary care provider appointment. 2. Follow up with primary care provider in 4 to 7 days. Discuss recent hospitalization, blood pressure log, medication changes, need for proper footwear and wound clinic or Podiatry appointment. 3. Follow up with wound clinic or net application architect within the next 1 to 2 weeks for callus paring. 4. Return to the ER or nearest hospital if you experience any return or worsening of symptoms, chest pain or discomfort, shortness of breath, high fevers, chills, night seats, or worsening or spread of erythema at the right lower extremity, opening of the right foot callus, dizziness, lightheadedness, loss of consciousness or any other worrisome signs or symptoms. This is a summarized report of a complex medical history and hospital stay. For further details, please see entire medical record. TIME SPENT: Approximately 40 minutes was spent on this discharge, greater than half of that time was spent [id number] with the patient and his family members discussing discharge plans, and instructions. PHYLLIS MATHEWS [id number]/CPS #: [id number] TAVO
== END 2019-04-04 18:30 | disposition home or self-care (01) | DRG 871 ==
LOC: ED 16:12 → MED 19:33 → MEDTELE 04-01 22:48
PROVIDERS: ADMIT Student in an Organized Health Care Education/Training Program; ATTEND Internal Medicine
PROC: 5A09357 Assistance with Respiratory Ventilation, Less than 24 Consecutive Hours, Continuous Positive Airway Pressure (ICD-10-PCS; principal; 2019-03-31)
DX: A41.9 Sepsis, unspecified organism (principal); J18.9 Pneumonia, unspecified organism; Z68.44 Body mass index [BMI] 60.0-69.9, adult; J96.11 Chronic respiratory failure with hypoxia; L03.115 Cellulitis of right lower limb; I24.8 Other forms of acute ischemic heart disease; E11.9 Type 2 diabetes mellitus without complications; I10 Essential (primary) hypertension; I27.20 Pulmonary hypertension, unspecified; G47.33 Obstructive sleep apnea (adult) (pediatric); J45.909 Unspecified asthma, uncomplicated; E66.01 Morbid (severe) obesity due to excess calories; F41.0 Panic disorder [episodic paroxysmal anxiety]; E78.5 Hyperlipidemia, unspecified; M10.9 Gout, unspecified; F32.9 Major depressive disorder, single episode, unspecified; Z91.5 Personal history of self-harm; Z86.711 Personal history of pulmonary embolism; Z88.8 Allergy status to other drugs, medicaments and biological substances; Z91.030 Bee allergy status; Z86.718 Personal history of other venous thrombosis and embolism; Z99.81 Dependence on supplemental oxygen; Z79.4 Long term (current) use of insulin; Z79.01 Long term (current) use of anticoagulants; Z79.899 Other long term (current) drug therapy
CPT/HCPCS: 36415; 71045; 80048; 80076; 81003; 81015; 83605; 84484; 85025; 86140; 86141; 87040; 87086; 87899; 93005; 93306; 94660; 99285; A9270-GY; C8929; J0456; J0696

== ENCOUNTER 2019-04-23 16:24 | Emergency (ER) | payer MEDICAID, MEDICARE ==
--- OUTSIDE RECORDS SUMMARY | 2019-04-23 16:48 | XMS REPORT | Summary of Care ---
:1975 Author Organization [facility] Address [address] [facility] [place] [address] Care Team Providers Name Role Phone Lilli Chen RN Unavailable Chong Oliveros Primary Care Provider Reason for Visit Reason Comments Transitional Care Management pt presents for TCM from admission to [facility] from 02/2719-03/28/[facility] and 03/31/19-04/04/19 ([facility]) Encounter Details Date Type Department Care Team Description 04/10/2019 Office Visit [facility] Chong Oliveros MD Pneumonia due to organism (Primary Dx); Practice [address] Cellulitis of right lower extremity; [address] [place] [address] Morbid obesity (HCC); [place] [address] Pulmonary arterial hypertension (HCC); [phone] Type 2 diabetes mellitus with complication (HCC); Essential hypertension; Low testosterone in male; Callus of foot; Moderate episode of recurrent major depressive disorder (HCC); Demand ischemia ([facility]) Allergies Active Allergy Reactions Severity Noted Date Comments Bee Sting Respiratory Reaction 09/19/2013 SOB, throat tightness Glipizide Other 09/20/2007 Burning pain in chest Honey Swelling High 04/10/2019 Tongue swelling Aspartame-Ibuprofen Other 10/02/2011 Mucinex Hives 03/02/2018 Nitroglycerin Other 02/08/2019 Pt told not to take d/t reaction with other meds. Pt unable to advise what medication interactions or possible side effects Carroll Other 10/02/2011 documented as of this encounter (statuses as of 04/14/2019) Medications Medication Sig Dispensed Refills Start End Status Date Date HYDROXYPROPYL Place 2 Drops to 1 Bottle 0 02/15/20 Active METHYLCELLULOSE the external eye 14 (GENTEAL MILD TO DAILY NEEDED MODERATE) 0.3 % (2 drops in both Ophthalmic Solution eyes ever 3 hours as needed). loratadine take 1 tablet by 30 Tab 5 11/06/19 Active (CLARITIN,ALAVERT) mouth once daily 15 10 MG Oral Tab Nystatin 941256 1 g by Apply 1 Bottle 2 04/26/19 Active UNIT/GM Apply externally route 18 externally Powder TWICE DAILY. mirtazapine Take 15 mg by 0 Active (REMERON) 15 MG mouth EVERY Oral Tab BEDTIME. EPINEPHrine (EPIPEN 1 Device by 2 Each 0 08/25/19 Active 2-STU) 0.3 MG/0.3ML Injection route 18 Injection Solution DIRECTED. As Auto-injector directed for bee sting Blood Glucose 1 Device by Does 1 Device 0 08/26/19 Active Monitor Software not apply route 18 Does not apply DIRECTED. Device Insurance preferred. E11.9 albuterol HFA Take 2 Puffs by 1 Inhaler 0 06/10/19 Active (VENTOLIN) 108 (90 inhalation EVERY 19 Base) MCG/ACT FOUR HOURS Inhalation Aero NEEDED (1-2 Soln puffs every four hours as needed). carvedilol (COREG) Take 1 Tab by 180 Tab 3 10/25/19 Active 3.125 MG Oral Tab mouth TWICE 19 DAILY. Tadalafil 20 MG Take by mouth. 0 Active Oral Tab Lancets Does not TWICE DAILY. 100 Each 5 11/16/19 Active apply Misc E11.9 19 BD ULTRA-FINE PEN USE TO INJECT 100 Each 0 11/28/19 Active NEEDLES 29G X TWICE DAILY 19 12.7MM Does not DIRECTED apply Misc Ambrisentan 5 MG Take 10 mg by 0 Active Oral Tab mouth DAILY. buPROPion Take 1 Tab by 30 Tab 5 12/05/19 Active (WELLBUTRIN XL) 300 mouth DAILY. 19 MG Oral TABLET SR 24 HR buPROPion Take 1 Tab by 30 Tab 5 12/05/19 Active (WELLBUTRIN SR) 150 mouth DAILY. 19 MG Oral TABLET SR 12 HR Aripiprazole Take 1 Tab by 30 Tab 1 12/05/19 Active (ABILIFY) 2 MG Oral mouth EVERY 19 Tab BEDTIME. allopurinol Take 1 Tab by 60 Tab 5 12/30/19 Active (ZYLOPRIM) 100 MG mouth TWICE 19 Oral Tab DAILY. rivaroxaban Take 1 Tab by 30 Tab 5 12/30/19 Active (XARELTO) 20 MG mouth DAILY. 19 Oral Tab Insulin 1 Syringe by 100 Each 0 01/13/20 Active Syringe-Needle Does not apply 19 U-100 30G X 3/16" 1 route TWICE ML Does not apply DAILY. MiscIndications: Type 2 diabetes mellitus with complication (HCC) Insulin Pen Needle Inject 1 Each 100 Each 5 01/13/20 Active (PEN NEEDLES) 31G X beneath the skin 19 5 MM Does not apply TWICE DAILY. Misc budesonide-formoter Take 2 INHL by 1 Each 5 02/16/20 Active ol fumarate inhalation TWICE 19 (SYMBICORT) 160-4.5 DAILY. MCG/ACT Inhalation Aerosol atorvastatin Take 1 Tab by 90 Tab 0 02/16/20 Active (LIPITOR) 10 MG mouth DAILY. [address] 2.5 g onto 75 g 0 02/19/20 Active (ANDROGEL) 40.5 skin DAILY. Max 19 MG/2.5GM (1.62%) Daily Amount: Transdermal Gel 2.5 g. 1 packet daily Dx low testosterone torsemide (DEMADEX) TAKE TWO TABLETS 60 Tab 1 03/01/19 Active 10 MG Oral Tab BY MOUTH EVERY 20 DAY Spironolactone 50 TAKE ONE TABLET 60 Tab 1 03/21/19 Active MG Oral BY MOUTH TWICE A 20 TabIndications: DAY Type 2 diabetes mellitus with complication (HCC) Glucose Blood (ONE 1 Strip by In 100 Strip 5 04/02/19 Active TOUCH ULTRA TEST Vitro route 20 STRIPS) In Vitro THREE TIMES Strip DAILY. E11.65 last OV 02/15/19 Cefdinir (OMNICEF) 0 04/04/19 Active 300 MG Oral Cap 20 Insulin Lispro, 1 Inject beneath 0 03/27/19 Active Unit Dial, (HUMALOG the skin. 20 020 KWIKPEN) 100 Sliding scale UNIT/ML Subcutaneous Solution Pen-injector 75-25 LISPRO Inject 40 Units 0 03/31/19 Active PROT/LISPRO beneath the skin 20 insulin, DAILY. MIXED-Acting, (HUMALOG MIX 75/25) (75-25) 100 UNIT/ML Subcutaneous Suspension Insulin Glargine, 2 Inject 60 Units 5 Pre-filled 3 04/10/19 Active Unit Dial, (TOUJEO beneath the skin Pen Syringe 20 MAX SOLOSTAR) 300 EVERY BEDTIME. UNIT/ML Subcutaneous Solution Pen-injector Insulin Aspart Prot Inject 60 Units 120 mL 3 02/13/20 Discontinued & Aspart (NOVOLOG beneath the skin 19 020 (No longer MIX 70/30 FLEXPEN) TWICE DAILY. clinically (70-30) 100 UNIT/ML indicated) Subcutaneous Suspension Pen-injector Insulin Glargine Inject 80 Units 60 mL 3 03/21/19 Discontinued (LANTUS SOLOSTAR) beneath the skin 20 020 (No longer 100 UNIT/ML TWICE DAILY. clinically Subcutaneous indicated) Solution Pen-injector Aspirin 81 MG Oral Take 81 mg by 0 Discontinued Tab EC mouth DAILY. 020 documented as of this encounter (statuses as of 04/14/2019) Active Problems Problem Noted Date Low testosterone in male 02/15/2019 Pulmonary arterial hypertension 11/28/2018 Depression 03/10/2012 BMI 70 and over, adult 08/28/2010 Gout 12/04/2007 Morbid obesity 04/28/2007 Type 2 diabetes mellitus with complication 04/28/2007 Essential hypertension 04/28/2007 Asthma 04/28/2007 Allergic Rhinitis 04/28/2007 Sleep apnea Overview: bipap documented as of this encounter (statuses as of 04/14/2019) Resolved Problems Problem Noted Date Resolved Date Wrist fracture 10/02/2011 Overview: R, open reduction and fixation documented as of this encounter (statuses as of 04/14/2019) Immunizations Name Administration Dates Next Due Influenza [...] Assigned at Date Recorded Not on file documented as of this encounter Last Filed Vital Signs Vital Sign Reading Time Taken Comments Blood Pressure 112/62 04/10/2019 3:18 PM EST Pulse 77 04/10/2019 3:18 PM EST Temperature 36.9 04/10/2019 3:18 PM EST C (98.4 F) Respiratory Rate - - Oxygen Saturation 95% 04/10/2019 3:18 PM EST Inhaled Oxygen Concentration - - Weight 190.5 kg (420 lb) 04/10/2019 3:18 PM EST Height 172.7 cm (5' 8") 04/10/2019 3:18 PM EST Body Mass Index 63.86 04/10/2019 3:18 PM EST documented in this encounter Patient Instructions Patient InstructionsChong Oliveros MD - 04/10/2019 3:00 PM TERESA gave tuojeo rather than lantus or the 75/25 at night Stay on sliding scale Keep appointment with reed maker and if you need me to pare the callus further make appointment I will see you in april as planned documented in this encounter Progress Notes Chong Oliveros MD - 04/10/2019 3:00 PM EST PATIENT: Trae Urbina : 1975 DATE OF SERVICE: 04/10/2019 CHIEF COMPLAINT: Chief Complaint Patient presents with ? Transitional Care Management pt presents for TCM from admission to [facility] from 02[facility]2719- [facility] and 03/31/19-04/04/19 ([facility]) Subjective HISTORY OF PRESENT ILLNESS: Trae Urbina is a 44-y.o. male. In for hospital follow up. TCM call was technically not made there was a TCM call from his d/c from on 03/27 but he not come in for that admission . He was admitted again 03/31 and discharged 04/04 and I dont see a TCM call for that . Diagnosis was sepsis blamed on pneumonia and RL extremitycellulitis after his February hospital was for CHF . He has a complex hx and he has a lack of knowledge of what he is taking etc. He was told to bring his meds with him today and he did not He came to ER 2/ for his fever to 103 . He denied other symptoms except for his bouts of dizziness. No URI symptoms no cough on H and P but D/c summary said cough , denied GI symptoms or symptoms. Wbc 13 without bands CRP high at 115 dropped to 79 WBC improved but HCT dropped 40 to 34 PLT been low CXR read as possible infiltrate. This is how he was treated with rocephin and zithromax although he had just been in Hospital in [place] which I dont think [facility] knew. Legionella and strep pneumo negative flu negative Blood cx negative UA not look like infection his oxygen requirement per d/c summary dropped from 4 liter to 2 . His fever stopped HD #2 and cough stopped Blood cx negative He also complained of pain in right calf . They found it to be slight red ultrasound was negativefor DVT They did not change his antibiotics for cellulitis. He said it feels ok now Wound care also came by to look at his callus on the foot. X ray no osteo . Consult said it needed to be pared. He was seeing wound care prior but was d/ c and is supposed to see podiatry next month He told the hospital his aldactone and demadex were used for BP not his edema which of course is totally false . Because BP low in hospital and he was dizzy they not send him home on the diuretics buthe said he is taking them. I think [facility] told [facility] to take them He did have CP HD #2 . trops were trended and they peaked at 0.3 . They blamed it on demand ischemia Re his diabetes that is really messed up. He was on lantus 80 bid and seeing Ynes Belle who wrote in her last note that due to cost change to a 70/30 however he never had an issue with the lantus getting it paid for . I followed her advice but he continued taking the lantus and 70/30. When Ifound out I had him stop the lantus and his last a1c was worse but was not the whole 90 days . Whenhe went to [facility] they put him on lantus 40 and a SS of humalog Insulin lispro. Re his abilify he said he not taking it Has not been on for awhile . I gave it to him 2 mg from 5 mg as a compromise when I first met him as some concern the abilify causing the dizziness so I gave 2 mg till he could get in with psych. He has not had it refilled . Tells me mood ok Past Medical History: Diagnosis Date ? Allergic Rhinitis 04/28/2007 ? Asthma 04/28/2007 ? Depression ? Diabetes 04/28/2007 ? Gout ? Hypertension 04/28/2007 ? Morbid obesity (HCC) 04/28/2007 ? Pulmonary arterial hypertension (HCC) 11/28/2018 ? Pulmonary emboli (HCC) 2018 ? Sleep apnea bipap 14/12 ? Wrist fracture R, open reduction and fixation Family History Problem Relation Age of Onset ? Heart Mother HCM and Afib Current Outpatient Medications Medication Sig ? 75-25 LISPRO PROT/LISPRO insulin, MIXED-Acting, (HUMALOG MIX 75/25) (75- 25) 100 UNIT/ML Subcutaneous Suspension Inject 40 Units beneath the skin DAILY. ? albuterol HFA (VENTOLIN) 108 (90 Base) MCG/ACT Inhalation Aero Soln Take 2 Puffs by inhalation EVERY FOUR HOURS NEEDED (1-2 puffs every four hours as needed). ? allopurinol (ZYLOPRIM) 100 MG Oral Tab Take 1 Tab by mouth TWICE DAILY. ? Ambrisentan 5 MG Oral Tab Take 10 mg by mouth DAILY. ? Aripiprazole (ABILIFY) 2 MG Oral Tab Take 1 Tab by mouth EVERY BEDTIME. ? atorvastatin (LIPITOR) 10 MG Oral Tab Take 1 Tab by mouth DAILY. ? BD ULTRA-FINE PEN NEEDLES 29G X 12.7MM Does not apply Misc USE TO INJECT TWICE DAILY DIRECTED ? Blood Glucose Monitor Software Does not apply Device 1 Device by Does not apply route DIRECTED. Insurance preferred. E11.9 ? budesonide-formoterol fumarate (SYMBICORT) 160-4.5 MCG/ACT Inhalation Aerosol Take 2 INHL byinhalation TWICE DAILY. ? buPROPion (WELLBUTRIN SR) 150 MG Oral TABLET SR 12 HR Take 1 Tab by mouth DAILY. ? buPROPion (WELLBUTRIN XL) 300 MG Oral TABLET SR 24 HR Take 1 Tab by mouth DAILY. ? carvedilol (COREG) 3.125 MG Oral Tab Take 1 Tab by mouth TWICE DAILY. ? Cefdinir (OMNICEF) 300 MG Oral Cap ? EPINEPHrine (EPIPEN 2-STU) 0.3 MG/0.3ML Injection Solution Auto- injector 1 Device by Injection route DIRECTED. As directed for bee sting ? Glucose Blood (ONE TOUCH ULTRA TEST STRIPS) In Vitro Strip 1 Strip by In Vitro route THREE TIMES DAILY. E11.65 last OV 02/15/19 ? HYDROXYPROPYL METHYLCELLULOSE (GENTEAL MILD TO MODERATE) 0.3 % Ophthalmic Solution Place 2 Drops to the external eye DAILY NEEDED (2 drops in both eyes ever 3 hours as needed). ? Insulin Glargine, 2 Unit Dial, (TOUJEO MAX SOLOSTAR) 300 UNIT/ML Subcutaneous Solution Pen-injector Inject 60 Units beneath the skin EVERY BEDTIME. ? Insulin Lispro, 1 Unit Dial, (HUMALOG KWIKPEN) 100 UNIT/ML Subcutaneous Solution Pen-injector Inject beneath the skin. Sliding scale ? Insulin Pen Needle (PEN NEEDLES) 31G X 5 MM Does not apply Misc Inject 1 Each beneath the skin TWICE DAILY. ? Insulin Syringe-Needle U-100 30G X 3/16" 1 ML Does not apply Misc 1 Syringe by Does not apply route TWICE DAILY. ? Lancets Does not apply Misc TWICE DAILY. E11.9 ? loratadine (CLARITIN,ALAVERT) 10 MG Oral Tab take 1 tablet by mouth once daily ? mirtazapine (REMERON) 15 MG Oral Tab Take 15 mg by mouth EVERY BEDTIME. ? Nystatin 181228 UNIT/GM Apply externally Powder 1 g by Apply externally route TWICE DAILY. ? rivaroxaban (XARELTO) 20 MG Oral Tab Take 1 Tab by mouth DAILY. ? Spironolactone 50 MG Oral Tab TAKE ONE TABLET BY MOUTH TWICE A DAY ? Tadalafil 20 MG Oral Tab Take by mouth. ? Testosterone (ANDROGEL) 40.5 MG/2.5GM (1.62%) Transdermal Gel Place 2.5 g onto skin DAILY. Max Daily Amount: 2.5 g. 1 packet daily Dx low testosterone ? torsemide (DEMADEX) 10 MG Oral Tab TAKE TWO TABLETS BY MOUTH EVERY DAY No current facility-administered medications for this visit. Allergies Allergen Reactions ? Honey Swelling Tongue swelling ? Bee Sting Respiratory Reaction SOB, throat tightness ? Glipizide Other Burning pain in chest ? Ibuprofen [Aspartame-Ibuprofen] Other ? Mucinex Hives ? Nitroglycerin Other Pt told not to take d/t reaction with other meds. Pt unable to advise what medication interactions or possible side effects ? Carroll Other Social History Socioeconomic History ? Marital status: Single Spouse name: Not on file ? Number of children: Not on file ? Years of education: Not on file ? Highest education level: Not on file Occupational History ? Not on file Social Needs ? Financial resource strain: Not on file ? Food insecurity Worry: Not on file Inability: Not on file ? Transportation needs Medical: Not on file Non-medical: Not on file Tobacco Use ? Smoking status: Never Smoker ? Smokeless tobacco: Never Used Substance and Sexual Activity ? Alcohol use: No ? Drug use: No ? Sexual activity: Not on file Lifestyle ? Physical activity Days per week: Not on file Minutes per session: Not on file ? Stress: Not on file Relationships ? Social connections Talks on phone: Not on file Gets together: Not on file Attends denominational service: Not on file Active member of club or organization: Not on file Attends meetings of clubs or organizations: Not on file Relationship status: Not on file ? Intimate partner violence Fear of current or ex partner: Not on file Emotionally abused: Not on file Physically abused: Not on file Forced sexual activity: Not on file Other Topics Concern ? Not on file Social History Narrative Disability temporary -trying to get permanent REVIEW OF SYSTEMS: Review of Systems Respiratory: Rare albuterol use Musculoskeletal: No gout Objective PHYSICAL EXAM: VITALS: BP 112/62 (BP Location: Left arm, Patient Position: Sitting) | Pulse 77 | Temp 98.4 F(36.9 C) | Ht 5' 8" (1.727 m) | Wt (!) 420 lb (190.5 kg) | SpO2 95% | BMI 63.86 kg/m Body mass index is 63.86 kg/m. Physical Exam Vitals signs reviewed. Constitutional: Appearance: He is obese. He is not ill-appearing (up 20 lb). Cardiovascular: Rate and Rhythm: Normal rate and regular rhythm. Pulmonary: Effort: Pulmonary effort is normal. No respiratory distress. Breath sounds: Normal breath sounds. Musculoskeletal: Comments: Edema not bad Callus , very thick bottom of foot Neurological: General: No focal deficit present. Psychiatric: Comments: Dress and hygiene good Good eye contact Thoughts and speech normal Affect Appropriate Mood normal ASSESSMENT / IMPRESSION: ICD-9-CM ICD-10-CM 1. Pneumonia due to organism fever gone Not a lot of evidence it was pneumonia , couldve been cellulitis too. I dont think needs more antibiotics 486 J18.9 2. Cellulitis of right lower extremity 682.6 L03.115 3. Morbid obesity (HCC) 278.01 E66.01 4. Pulmonary arterial hypertension (HCC) he has the right orders for demadex aldactone and his othermeds per [facility] . His dizziness this time is due to his fever etc 416.8 I27.21 5. Type 2 diabetes mellitus with complication ([facility]) Patient Instructions I gave tuojeo rather than lantus or the 75/25 at night Stay on sliding scale Keep appointment with reed maker and if you need me to pare the callus further make appointment I will see you in april as planned 250.90 E11.8 6. Essential hypertension 401.9 I10 7. Low testosterone in male he is yet to take it This may help his low plts and his anemia 790.99 R79.89 8. Callus of foot I tried to pare the callus but too thick and could not do and the d/x\\c summary atsame time 700 L84 9. Moderate episode of recurrent major depressive disorder (HCC) abilify puts weight on So does remeron but he uses it for sleep so id like him to not take the abilify if he can help it He said he would try without 296.32 F33.1 10. Demand ischemia ([facility]) 411.89 I24.8 I Plan 60minutes were required for this appointment with at least 1/2 the time spent in counseling, education, coordination of care, disease management and/or disposition Author: Chong Oliveros MD 04/14/2019 16:32 documented in this encounter Plan of Treatment Date Type Specialty Care Team Description 05/16/2019 Lab Internal Medicine 05/25/2019 Office Visit Family Practice Chong Oliveros MD [address] [place] [id number] 08/20/2019 Office Visit Cardiology Jhoan Zepeda MD [facility] [place] [address] Health Maintenance Due Date Last Done Comments MEDICARE ANNUAL WELLNESS 12/21/2017 12/21/2016, 03/02/2012 VISIT HEMOGLOBIN A1C 06/13/2019 03/14/2019, 02/08/2019, 10/12/2018, Additional history exists FOOT EXAM 07/14/2019 07/13/2018, 07/13/2018, 08/24/2017, Additional history exists URINE MICROALBUMIN 09/09/2019 09/08/2018, 10/06/2016, 09/11/2014, Additional history exists DTaP/Tdap/Td Vaccines (2 - 09/11/2019 09/10/2009 Tdap) DEPRESSION SCREENING 02/16/2020 02/15/2019, 02/15/2019 LIPID DISORDER SCREENING 03/14/2020 03/14/2019, 02/15/2019, 02/08/2019, Additional history exists Diabetic Eye Exam 04/05/2020 [...] Problems Progress Blood Pressure Blood Pressure Essential 112/62 No Galshadi, < 140/90 hypertension (04/10/2019 Lise, 3:18 PM EST) Note: Hypertension Care Plan Based [...] Educational Resources. record my blood pressure results. [place] is safe and secure way for you [...] Educational Resources: National Heart, Lung, & Blood [place] http://nhlbi.nih.gov/hbp/index.html The DASH Diet Eating Plan http://www.nhlbi.nih.gov/health/health-topics/ topics/dash/ Academy of Nutrition & DIetetics http://eatright.org National Smoking Cessation Site http://smokefree.gov Blood Pressure < Blood Pressure 112/62 (04/10/2019 No Lise Davis, 140/90 3:18 PM EST) Note: This is an individualized [...] an individualized treatment (depression) goal for Trae B Carlitos: Displayed above is your goal for a depression screening (PHQ-9) score that would indicate good control of your depression. Diabetes < 7.0 Diabetes Type 2 diabetes 10.4 (03/14/2019 No Susan, mellitus with 3:44 PM EST) MD Lise complication Note: Diabetes Care [...] Diabetes < 7.0 Diabetes Type 2 diabetes 10.4 (03/14/2019 No Susan, mellitus with 3:44 PM EST) MD Lise complication Note: Diabetes Care [...] towards quitting. Glycohemoglobin A1c < 7.0 Diabetes 10.4 (03/14/2019 3:44 No Lise Davis, PM EST) Note: This is an individualized treatment (diabetes control, HgbA1C) goal for Trae Urbina: Displayed above is your progress towards your HgbA1C goal. Your goal is shown above (on the left); your most recent HgbA1C is shown on the right. Note that lower numbers are better. Weight loss vs. 18 mo Lifestyle 6 (04/10/2019 3:18 PM No Lise Davis MD max (lbs) [...] filedocumented in this encounter Visit Diagnoses Diagnosis Cellulitis of right lower extremity Cellulitis and abscess of leg, except foot Morbid obesity (HCC) Morbid obesity Pulmonary arterial hypertension (HCC) Other chronic pulmonary heart diseases Type 2 diabetes mellitus with complication (HCC) Essential hypertension Unspecified essential hypertension Low testosterone in male Pneumonia due to organism Pneumonia due to other specified organism Callus of foot Corns and callosities Moderate episode of recurrent major depressive disorder (HCC) Demand ischemia (HCC) Other acute and subacute form of ischemic heart disease documented in this encounter Guarantor Name Account Type Relation to Date of Phone Billing Patient Address Trae Urbina Personal/Family 1975 [address]) [place] [phone] [place], [place] (Work) [id number] documented as of this encounter Advance Directives Type Date Recorded Patient Mechanical Facilities Technician Explanation Advance Directives 01/04/2019 8:38 AM HEALTH CARE PROXY
--- OUTSIDE RECORDS SUMMARY | 2019-04-23 16:48 | XMS REPORT | Continuity of Care Document ---
:1975 External Reference #:[id number] Author Name Jairo Posadas MD, [facility], [facility] (transmitted by agent of provider Kimberley Mejia) Address [address] [address] Problems Description No Information Available Social History Type Date Description Comments Sex Unknown Tobacco Use Start: Unknown Patient has never smoked Allergies, Adverse Reactions, Alerts Active Allergies Reaction Severity Comments Date Dextromethorphan 04/14/2016 Guaifenesin 04/14/2016 Dye 04/14/2016 Ibuprofen 04/14/2016 Medications Active Medications SIG Qnty Indications Ordering Provider Date Tylenol as needed Unknown 325mg Tablets Albuterol Sulfate 1-2 puffs every 6 Unknown Powder hours as needed Bupropion HCL 1 by mouth Unknown Tablets Cetirizine HCL 1 by mouth every Unknown 10mg day Tablets Lisinopril 1 by mouth every Unknown 10mg Tablets day Oxycodone HCL 1-2 tabs by mouth Unknown 5mg every 4-6 hours Capsules as needed pain Immunizations Description No Information Available Vital Signs Date Vital Result Comment 04/16/2016 9:31am Height 78 inches 6'6" Weight 411.00 lb Heart Rate 76 /min BP Systolic 120 mmHg BP Diastolic 72 mmHg Respiratory Rate 18 /min Body Temperature 97.9 F BMI (Body Mass Index) 47.5 kg/m2 Results Description No Information Available Procedures Date Code Description Status 01/22/2019 07381 Removal Devitalization Tissue Wound Less Than Equal 20 Completed Square CM 11/22/2018 24325 ECHO Transthorasic Realtime 2D W Doppler & Color Flow Hosp Completed 10/26/2018 49139 EKG, Interpretation Only Completed 10/25/2018 77012 RT & lt Cath W/Injx HRT Art&L Ventr Img S&I Completed Medical Devices Description No Information Available Encounters Type Date Location Provider Dx Diagnosis Office Visit 02/02/2019 [facility] Annelise Clement, E11.621 Type 2 diabetes 1:15p AT [facility] [place], RN, ENCHILADA MAKER-BC mellitus with foot ulcer L97.512 Non-prs chronic ulcer oth prt right foot w fat layer exposed R21 Rash and other nonspecific skin eruption Office Visit 01/22/2019 1:45p Wound Care Annelise Clement, E11.621 Type 2 diabetes Center AT [facility] [place] RN, ENCHILADA MAKER-BC mellitus with foot ulcer L97.512 Non-prs chronic ulcer oth prt right foot w fat layer exposed R21 Rash and other nonspecific skin eruption S91.002A Unspecified open wound, left ankle, initial encounter R09.89 Oth symptoms and signs involving the circ and resp systems Office Visit 11/25/2018 2:19p [facility] Kimberley R42 Dizziness and Assoc,fernando Ricketts, JUAN crowe Hospitalists Z86.711 Personal history of pulmonary embolism G47.33 Obstructive sleep apnea (adult) (pediatric) Office Visit 11/24/2018 [facility] I27.20 Pulmonary 2:18p Assoc,fernando Bryant NP hypertension, Hospitalists unspecified R09.02 Hypoxemia R42 Dizziness and giddiness Z86.711 Personal history of pulmonary embolism Office Visit 11/23/2018 7:00a Neurohospitalist [facility] Breann Villarreal giddiness R51 Headache I27.20 Pulmonary hypertension, unspecified Office Visit 11/23/2018 2:18p [facility] Daivd Dominguez2 Dizziness and Assoc,fernando Orozco M.D.,FACP sebastien Hospitalists E11.9 Type 2 diabetes mellitus without complications Z86.711 Personal history of pulmonary embolism Office Visit 11/22/2018 Neurohospitalist Chandler Wesley D[facility] 7:00a Clinic Breann Villarreal Office Visit 11/22/2018 [facility] Linnea I27.20 Pulmonary 2:17p Assoc,pc Hospitaltanisha Kearns M.D. hypertension, unspecified R09.02 Hypoxemia R42 Dizziness and giddiness Office Visit 11/21/2018 [facility] I27.20 Pulmonary 11:59a [facility] hypertension, Tennis Court Attendant unspecified R42 Dizziness and giddiness G47.33 Obstructive sleep apnea (adult) (pediatric) E66.01 Morbid (severe) obesity due to excess calories Office Visit 11/21/2018 8:30a Wound Care Belle Blank L97.519 Non- prs chronic Center AT [facility] [place] Leo ulcer oth prt right foot w unsp severity E11.621 Type 2 diabetes mellitus with foot ulcer E66.01 Morbid (severe) obesity due to excess calories Office Visit 11/21/2018 [facility] Linnea I27.20 Pulmonary 2:17p Assoc,fernando Kearns M.D. hypertension, Hospitalists unspecified R42 Dizziness and giddiness Office Visit 11/20/2018 2:16p [facility] Billie R42 Dizziness and Assoc,fernando Alvarez NP giddiness Hospitalists R09.02 Hypoxemia Office Visit 11/20/2018 7:00a Neurohospitalist Chandler Vogel R42 [facility] Breann Villarreal giddiness I27.20 Pulmonary hypertension, unspecified Office Visit 10/26/2018 [facility] David Hess I27.20 Pulmonary 1:25p Assoc,fernando Orozco, hypertension, Hospitalists Breann,FACP unspecified E11.65 Type 2 diabetes mellitus with hyperglycemia Z68.44 Body mass index (BMI) 60.0-69.9, adult E66.01 Morbid (severe) obesity due to excess calories Office Visit 10/26/2018 [facility] I27.20 Pulmonary 8:42a [facility] hypertension, Tennis Court Attendant unspecified E66.01 Morbid (severe) obesity due to excess calories G47.33 Obstructive sleep apnea (adult) (pediatric) Office Visit 10/26/2018 5:[facility]p [facility] I[facility] Cardiology [place] Benito hypertension, unspecified I10 Essential (primary) hypertension E11.9 Type 2 diabetes mellitus without complications Office Visit 10/25/2018 [facility] Sundar Rodriguez, R94.39 Abnormal result of 4:13p Of Tennis Court Attendant AT [facility] Breann, FACC, other FSCAI cardiovascular function study Office Visit 10/25/2018 [facility] Pham Thomas MD I27.20 Pulmonary 1:25p Assoc,pc hypertension, Hospitalists unspecified Z68.44 Body mass index (BMI) 60.0-69.9, adult E11.65 Type 2 diabetes mellitus with hyperglycemia E66.01 Morbid (severe) obesity due to excess calories Office Visit 10/25/2018 4:41p [facility] Becki Finch, R07.9 Chest pain, Of Tennis Court Attendant M.Jimena unspecified R94.39 Abnormal result of other cardiovascular function study E11.9 Type 2 diabetes mellitus without complications I27.20 Pulmonary hypertension, unspecified I10 Essential (primary) hypertension R55 Syncope and collapse Assessments Date Code Description Provider 02/02/2019 E11.621 Type 2 diabetes mellitus with foot Annelise Clement DNP, RN, ulcer ENCHILADA MAKER-BC 02/02/2019 L97.512 Non-pressure chronic ulcer of other Annelise Clement DNP RN, part of right foot with fat layer ENCHILADA MAKER-BC exposed 02/02/2019 R21 Rash and other nonspecific skin Annelise Clement DNP, RN, eruption ENCHILADA MAKER-BC 01/22/2019 E11.621 Type 2 diabetes mellitus with foot Annelise Clement DNP, RN, ulcer ENCHILADA MAKER-BC 01/22/2019 L97.512 Non-pressure chronic ulcer of other Annelise Clement DNP , RN, part of right foot with fat layer ENCHILADA MAKER-BC exposed 01/22/2019 R21 Rash and other nonspecific skin Annelise Clement DNP, RN, eruption ENCHILADA MAKER-BC 01/22/2019 S91.002A Unspecified open wound, left ankle, Annelise Clement DNP , RN, initial encounter ENCHILADA MAKER-BC 01/22/2019 R09.89 Other specified symptoms and signs Annelise Clement DNP RN, involving the circulatory and ENCHILADA MAKER-BC respiratory systems 11/25/2018 R42 Dizziness and giddiness Kimberley Ricketts PA-C 11/25/2018 Z86.711 Personal history of pulmonary Kimberley Ricketts PA-C embolism 11/25/2018 G47.33 Obstructive sleep apnea (adult) Kimberley Ricketts PA-C (pediatric) 11/24/2018 I27.20 Pulmonary hypertension, unspecified Monse Bryant, PICK OUT HAND 11/24/2018 R09.02 Hypoxemia Monse Bryant, PICK OUT HAND 11/24/2018 R42 Dizziness and giddiness Monse Bryant, PICK OUT HAND 11/24/2018 Z86.711 Personal history of pulmonary Monse Bryant, PICK OUT HAND embolism 11/23/2018 R42 Dizziness and giddiness Chandler Villarreal M.D. 11/23/2018 R51 Headache Chandler Villarreal M.D. 11/23/2018 I27.20 Pulmonary hypertension, unspecified Chandler Villarreal M.D. 11/23/2018 R42 Dizziness and giddiness David Orozco M.D.,FACP 11/23/2018 E11.9 Type 2 diabetes mellitus without David Orozco M.D., FACP complications 11/23/2018 Z86.711 Personal history of pulmonary David Orozco M.D., FACP embolism 11/22/2018 R42 Dizziness and giddiness Chandler Villarreal M.D. 11/22/2018 I27.20 Pulmonary hypertension, unspecified Linnea Kearns M.D. 11/22/2018 I63.9 Cerebral infarction, unspecified Becki Finch M.D. 11/22/2018 R09.02 Hypoxemia Linnea Kearns M.D. 11/22/2018 R42 Dizziness and giddiness Linnea Kearns M.D. 11/21/2018 I27.20 Pulmonary hypertension, unspecified Evelyn Locke MD 11/21/2018 I27.20 Pulmonary hypertension, unspecified Linnea Kearns M.D. 11/21/2018 R42 Dizziness and giddiness Evelyn Locke MD 11/21/2018 L97.519 Non-pressure chronic ulcer of other Belle Rosamaria Leo NP part of right foot with unspecified severity 11/21/2018 G47.33 Obstructive sleep apnea (adult) Evelyn Locke MD (pediatric) 11/21/2018 R42 Dizziness and giddiness Linnea Kearns M.D. 11/21/2018 E66.01 Morbid (severe) obesity due to Evelyn Locke MD excess calories 11/21/2018 E11.621 Type 2 diabetes mellitus with foot Bellerl Leo, PICK OUT HAND ulcer 11/21/2018 E66.01 Morbid (severe) obesity due to Belle Leo NP excess calories 11/20/2018 R42 Dizziness and giddiness Chandler Villarreal M.D. 11/20/2018 I27.20 Pulmonary hypertension, unspecified Chandler Villarreal M.D. 11/20/2018 R42 Dizziness and giddiness Billie Alvarez, PICK OUT HAND 11/20/2018 R09.02 Hypoxemia Billie Alvarez, PICK OUT HAND 10/26/2018 R94.31 Abnormal electrocardiogram [ECG] Víctor Langley DO FACC [EKG] 10/26/2018 I27.20 Pulmonary hypertension, unspecified Cely Benito, PICK OUT HAND 10/26/2018 I10 Essential (primary) hypertension Cely Benito, PICK OUT HAND 10/26/2018 E11.9 Type 2 diabetes mellitus without Cely Benito PICK OUT HAND complications 10/26/2018 I27.20 Pulmonary hypertension, unspecified David Orozco M.D.,FACP 10/26/2018 I27.20 Pulmonary hypertension, unspecified Evelyn Locke MD 10/26/2018 E11.65 Type 2 diabetes mellitus with David Orozco M.D.,FACP hyperglycemia 10/26/2018 E66.01 Morbid (severe) obesity due to Evelyn Locke MD excess calories 10/26/2018 Z68.44 Body mass index (BMI) 60.0-69.9, David Orozco M.D., FACP adult 10/26/2018 E66.01 Morbid (severe) obesity due to David Orozco M.D., FACP excess calories 10/26/2018 G47.33 Obstructive sleep apnea (adult) Evelyn Locke MD (pediatric) 10/25/2018 R94.39 Abnormal result of other Sundar Rodriguez M.D., [facility], cardiovascular function study FSCAI 10/25/2018 R07.9 Chest pain, unspecified Becki Finch M.D. 10/25/2018 R94.39 Abnormal result of other Becki Mifflin, M.D. cardiovascular function study 10/25/2018 E11.9 Type 2 diabetes mellitus without Becki Finch M.D. complications 10/25/2018 I27.20 Pulmonary hypertension, unspecified Becki Finch M.D. 10/25/2018 I10 Essential (primary) hypertension Becki Finch M.D. 10/25/2018 R55 Syncope and collapse Becki Finch M.D. 10/25/2018 R07.9 Chest pain, unspecified Sundar Rodriguez M.D., [facility], [facility] 10/25/2018 I27.20 Pulmonary hypertension, unspecified Pham Thomas MD 10/25/2018 Z68.44 Body mass index (BMI) 60.0-69.9, Pham Thomas MD adult 10/25/2018 E11.65 Type 2 diabetes mellitus with Pham Thomas MD hyperglycemia 10/25/2018 E66.01 Morbid (severe) obesity due to Pham Thomas MD excess calories Plan of Treatment 04/16/2016 - Corey Huddleston, PAL02.91 Cutaneous abscess, unspecifiedFollow up:1 week Functional Status Description No Information Available Mental Status Description No Information Available Referrals Description No Information Available
--- OUTSIDE RECORDS SUMMARY | 2019-04-23 16:48 | XMS REPORT ---
:1975 Author Name Dorita Ohara Address [address] [address] Care Team Providers Name Role Phone Dorita Ohara Unavailable Unavailable Allergies, Adverse Reactions, Alerts Allergy Code CodeSystem Reaction Severity Status Substance RxNorm Medications Medication Medication Medication Start Route Dose Status Fill Code CodeSystem Date Instructions RxNorm NoCurrentDosage Active NoCurrentFrequency RxNorm NoCurrentDosage Active NoCurrentFrequency RxNorm NoCurrentDosage Active NoCurrentFrequency RxNorm NoCurrentDosage Active NoCurrentFrequency RxNorm NoCurrentDosage Active NoCurrentFrequency RxNorm NoCurrentDosage Active NoCurrentFrequency RxNorm NoCurrentDosage Active NoCurrentFrequency RxNorm NoCurrentDosage Active NoCurrentFrequency RxNorm NoCurrentDosage Active NoCurrentFrequency RxNorm NoCurrentDosage Active NoCurrentFrequency RxNorm NoCurrentDosage Active NoCurrentFrequency RxNorm NoCurrentDosage Active NoCurrentFrequency RxNorm NoCurrentDosage Active NoCurrentFrequency RxNorm NoCurrentDosage Active NoCurrentFrequency RxNorm NoCurrentDosage Active NoCurrentFrequency RxNorm NoCurrentDosage Active NoCurrentFrequency RxNorm NoCurrentDosage Active NoCurrentFrequency RxNorm NoCurrentDosage Active NoCurrentFrequency RxNorm NoCurrentDosage Active NoCurrentFrequency RxNorm NoCurrentDosage Active NoCurrentFrequency RxNorm NoCurrentDosage Active NoCurrentFrequency RxNorm NoCurrentDosage Active NoCurrentFrequency Hospital Discharge Medications Medication Direction Start Date Status Indications Fill Instuctions No Discharge Medication Problems Problem Name Code CodeSystem Start Date End Date Status SNOMED-CT 2018-11-09 Active SNOMED-CT 2018-11-09 Active SNOMED-CT 2018-11-09 Active SNOMED-CT 2018-11-09 Active SNOMED-CT 2018-11-09 Active SNOMED-CT 2018-11-09 Active SNOMED-CT 2018-11-09 Active Laboratory Values/Results Test Test Code Code System Actual Result Date LOINC Procedures Procedure Name Code CodeSystem Target Site Date of Procedure SNOMED-CT () 2018-11-09 SNOMED-CT () 2018-10-23 Encounter Diagnosis Code CodeSystem Description Date Finding Finding Code Status 58158 CPT Initial 2018-10-29 - SNOMED-CT Active Assessment 2 Diagnostic & Treatment Plan Vital Signs Vitals Date Value Immunizations Vaccine Name Vaccine Code CodeSystem Date Status Social History Element Description Start Date End Date Code CodeSystem Description SNOMED-CT Hospital Discharge Instructions Reason For Referral
--- OUTSIDE RECORDS SUMMARY | 2019-04-23 16:48 | XMS REPORT | Continuity of Care Document ---
:1975 External Reference #:[id number] Author Name Jairo Posadas MD, [facility], [facility] (transmitted by agent of provider Kimberley Mejia) Address [address] [address] Problems Description No Information Available Social History [...] Available Procedures Date Code Description Status 01/22/2019 88153 Removal Devitalization Tissue Wound Less Than Equal 20 Completed Square CM 11/22/2018 89122 ECHO Transthorasic Realtime 2D W Doppler & Color Flow Hosp Completed 10/26/2018 04936 EKG, Interpretation Only Completed 10/25/2018 19387 RT & lt Cath W/Injx HRT Art&L Ventr Img S&I Completed Medical Devices Description No Information Available Encounters Type Date Location Provider Dx Diagnosis Office Visit 02/02/2019 [facility] Annelise Clement, E11.621 Type 2 diabetes 1:15p AT [facility] [place], RN, ACCOUNT GENERAL MANAGER-BC mellitus with foot ulcer L97.512 Non-prs chronic ulcer oth prt right foot w fat layer exposed R21 Rash and other nonspecific skin eruption Office Visit 01/22/2019 1:45p Wound Care Annelise Clement, E11.621 Type 2 diabetes Center AT [facility] [place] RN, ACCOUNT GENERAL MANAGER-BC mellitus with foot ulcer L97.512 Non-prs chronic ulcer oth prt right foot w fat layer exposed R21 Rash and other nonspecific skin eruption S91.002A Unspecified open wound, left ankle, initial encounter R09.89 Oth symptoms and signs involving the circ and resp systems Office Visit 11/25/2018 2:19p [facility] Kimberley R42 Dizziness and Assoc,fernando Ricketts, JUAN crowe Hospitalists Z86.711 Personal history of pulmonary embolism G47.33 Obstructive sleep apnea (adult) (pediatric) Office Visit 11/24/2018 [facility] I27.20 Pulmonary 2:18p Assoc,fernando Bryant NP hypertension, Hospitalists unspecified R09.02 Hypoxemia R42 Dizziness and giddiness Z86.711 Personal history of pulmonary embolism Office Visit 11/23/2018 7:00a Neurohospitalist Chandler [facility] Breann Villarreal giddiness R51 Headache I27.20 Pulmonary hypertension, unspecified Office Visit 11/23/2018 2:18p [facility] David Dominguez2 Dizziness and Assoc,fernando Orozco M.D.,FACP sebastien Hospitalists E11.9 Type 2 diabetes mellitus without complications Z86.711 Personal history of pulmonary embolism Office Visit 11/22/2018 Neurohospitalist Chandler Wesley Dizziness and 7:00a Clinic Breann Villarreal Office Visit 11/22/2018 [facility] Linnea I27.20 Pulmonary 2:17p Assoc,pc Hospitaltanisha eKarns M.D. hypertension, unspecified R09.02 Hypoxemia R42 Dizziness and giddiness Office Visit 11/21/2018 [facility] I27.20 Pulmonary 11:59a [facility] hypertension, Boarding House Cook unspecified R42 Dizziness and giddiness G47.33 Obstructive sleep apnea (adult) (pediatric) E66.01 Morbid (severe) obesity due to excess calories Office Visit 11/21/2018 8:30a Wound Care Belle Blank L97.519 Non- prs chronic Center AT [facility] [place] Leo ulcer oth prt right foot w unsp severity E11.621 Type 2 diabetes mellitus with foot ulcer E66.01 Morbid (severe) obesity due to excess calories Office Visit 11/21/2018 [facility] Linnea I27.20 Pulmonary 2:17p Assoc,fernando Kearns M.D. hypertension, Hospitalists unspecified R42 Dizziness and giddiness Office Visit 11/20/2018 2:16p [facility] Billie R42 Dizziness and Assoc,fernando Alvarez NP giddiness Hospitalists R09.02 Hypoxemia Office Visit 11/20/2018 7:00a Neurohospitalist Chandler Vogel R42 Dizziness and Clinic Breann Villarreal giddiness I27.20 Pulmonary hypertension, unspecified Office Visit 10/26/2018 [facility] David Hess I27.20 Pulmonary 1:25p Assoc,fernando Orozco, hypertension, Hospitalists Breann,FACP unspecified E11.65 Type 2 diabetes mellitus with hyperglycemia Z68.44 Body mass index (BMI) 60.0-69.9, adult E66.01 Morbid (severe) obesity due to excess calories Office Visit 10/26/2018 [facility] I27.20 Pulmonary 8:42a [facility] hypertension, Boarding House Cook unspecified E66.01 Morbid (severe) obesity due to excess calories G47.33 Obstructive sleep apnea (adult) (pediatric) Office Visit 10/26/2018 5:14p [facility] I27.20 Pul[facility] Cardiology [place] Benito hypertension, unspecified I10 Essential (primary) hypertension E11.9 Type 2 diabetes mellitus without complications Office Visit 10/25/2018 [facility] Sundar Rodriguez, R94.39 Abnormal result of 4:13p Of Boarding House Cook AT [facility] Breann, FACC, other FSCAI cardiovascular function study Office Visit 10/25/2018 [facility] Pham Thomas MD I27.20 Pulmonary 1:25p Assoc,pc hypertension, Hospitalists unspecified Z68.44 Body mass index (BMI) 60.0-69.9, adult E11.65 Type 2 diabetes mellitus with hyperglycemia E66.01 Morbid (severe) obesity due to excess calories Office Visit 10/25/2018 4:41p [facility] Becki Finch, R07.9 Chest pain, Of Boarding House Cook M.Jimena unspecified R94.39 Abnormal result of other cardiovascular function study E11.9 Type 2 diabetes mellitus without complications I27.20 Pulmonary hypertension, unspecified I10 Essential (primary) hypertension R55 Syncope and collapse Assessments Date Code Description Provider 02/02/2019 E11.621 Type 2 diabetes mellitus with foot Annelise Clement DNP, RN, ulcer ACCOUNT GENERAL MANAGER-BC 02/02/2019 L97.512 Non-pressure chronic ulcer of other Annelise Clement DNP RN, part of right foot with fat layer ACCOUNT GENERAL MANAGER-BC exposed 02/02/2019 R21 Rash and other nonspecific skin Annelise Clement DNP, RN, eruption ACCOUNT GENERAL MANAGER-BC 01/22/2019 E11.621 Type 2 diabetes mellitus with foot Annelise Clement DNP, RN, ulcer ACCOUNT GENERAL MANAGER-BC 01/22/2019 L97.512 Non-pressure chronic ulcer of other Annelise Clement DNP , RN, part of right foot with fat layer ACCOUNT GENERAL MANAGER-BC exposed 01/22/2019 R21 Rash and other nonspecific skin Annelise Clement DNP, RN, eruption ACCOUNT GENERAL MANAGER-BC 01/22/2019 S91.002A Unspecified open wound, left ankle, Annelise Clement DNP , RN, initial encounter ACCOUNT GENERAL MANAGER-BC 01/22/2019 R09.89 Other specified symptoms and signs Annelise Clement DNP RN, involving the circulatory and ACCOUNT GENERAL MANAGER-BC respiratory systems 11/25/2018 R42 Dizziness and giddiness Kimberley Ricketts PA-C 11/25/2018 Z86.711 Personal history of pulmonary Kimberley Ricketts PA-C embolism 11/25/2018 G47.33 Obstructive sleep apnea (adult) Kimberley Ricketts PA-C (pediatric) 11/24/2018 I27.20 Pulmonary hypertension, unspecified Monse Bryant, FEDERAL AID COORDINATOR 11/24/2018 R09.02 Hypoxemia Monse Bryant, FEDERAL AID COORDINATOR 11/24/2018 R42 Dizziness and giddiness Monse Bryant, FEDERAL AID COORDINATOR 11/24/2018 Z86.711 Personal history of pulmonary Monse Bryant, FEDERAL AID COORDINATOR embolism 11/23/2018 R42 Dizziness and giddiness Chandler [...] 2 diabetes mellitus with foot Bellerl Leo, FEDERAL AID COORDINATOR ulcer 11/21/2018 E66.01 Morbid (severe) obesity due to Belle Leo NP excess calories 11/20/2018 R42 Dizziness and giddiness Chandler Villarreal M.D. 11/20/2018 I27.20 Pulmonary hypertension, unspecified Chandler Villarreal M.D. 11/20/2018 R42 Dizziness and giddiness Billie Alvarez, FEDERAL AID COORDINATOR 11/20/2018 R09.02 Hypoxemia Billie Alvarez, FEDERAL AID COORDINATOR 10/26/2018 R94.31 Abnormal electrocardiogram [ECG] Víctor Langley DO FACC [EKG] 10/26/2018 I27.20 Pulmonary hypertension, unspecified Cely Benito, FEDERAL AID COORDINATOR 10/26/2018 I10 Essential (primary) hypertension Cely Benito, FEDERAL AID COORDINATOR 10/26/2018 E11.9 Type 2 diabetes mellitus without Cely Benito FEDERAL AID COORDINATOR complications 10/26/2018 I27.20 Pulmonary hypertension, unspecified David [...] Abnormal result of other Sundar Rodriguez M.D., [facility], cardiovascular function study FSCAI 10/25/2018 R07.9 Chest pain, unspecified Becki Finch M.D. 10/25/2018 R94.39 Abnormal result of other Becki Poinsett, M.D. cardiovascular function study 10/25/2018 E11.9 Type 2 diabetes mellitus without Becki Finch M.D. complications 10/25/2018 I27.20 Pulmonary hypertension, unspecified Becki Finch M.D. 10/25/2018 I10 Essential (primary) hypertension Becki Finch M.D. 10/25/2018 R55 Syncope and collapse Becki Finch M.D. 10/25/2018 R07.9 Chest pain, unspecified Sundar Rodriguez M.D., [facility], [facility] 10/25/2018 I27.20 Pulmonary hypertension, unspecified Pham Thomas [...]
--- NOTE | 2019-04-23 17:54 | ED ---
Back Pain - HPI Summary HPI Summary: The patient is a 44-year-old male presenting to [facility] [place] emergency department accompanied by family with a chief complaint of left lower back pain onset 2019. He reports that he was getting into his truck when he twisted it and felt immediate pain. The pain has worsened since onset, especially today. Sharp pain is rated 10/10 in severity. Movement using the back muscles aggravates the pain , specifically with twisting or bending. He has not taken any medications for the pain for treatment. He notes he injured his back in a similar fashion in May 2018. He denies any saddle paresthesias or bowel or bladder incontinence. He also notes that his blood glucose has been over 500, which he let this primary care provider know who recommended he come in today. He has taken his diabetes medications today. Past medical history is significant for hypertension , asthma, pulmonary embolism, sleep apnea, kidney issues with Ibuprofen use, gout, anxiety, depression. Nonsmoker, no alcohol use, no substance use. Medications reviewed. Allergies noted. Home Medications Medication Instructions Recorded Confirmed Type Mirtazapine TAB* [Remeron TAB*] 15 mg PO BEDTIME 07/21/17 04/23/19 History LoraTADine TAB(NF) [Claritin 10 MG 10 mg PO DAILY 09/20/18 04/23/19 History TAB(NF)] BuPROPion XL* [Bupropion XL*] 150 mg PO DAILY 11/19/18 04/23/19 History Rivaroxaban TAB(*) [Xarelto 20 mg] 20 mg PO DAILY 11/19/18 04/23/19 History tadalafiL [Tadalafil] 40 mg PO DAILY 11/19/18 04/23/19 History Bupropion XL* [Wellbutrin XL *] 300 mg PO DAILY 11/20/18 04/23/19 History Torsemide TAB* [Demadex 20 MG*] 20 mg PO DAILY 11/20/18 04/23/19 History Allopurinol TAB* [Zyloprim 100 MG 100 mg PO BID tab 11/25/18 04/23/19 Rx TAB*] Ambrisentan [Letairis] 10 mg PO DAILY 03/29/19 04/23/19 History Atorvastatin* [Lipitor 10 MG*] 10 mg PO DAILY 03/29/19 04/23/19 History Carvedilol TAB* [Coreg TAB*] 3.125 mg PO BID 03/29/19 04/23/19 History Insulin Lispro Protamin/Lispro 40 units SUBCUT DAILY 03/31/19 04/23/19 History [Humalog Mix 75-25 10 ML Vial] Insulin Lispro [Admelog 100 0 units SUBCUT TID PC 03/31/19 04/23/19 History units/ml 10 ml VIAL] Cefdinir cap* [Cefdinir 300 MG cap 300 mg PO BID #12 cap 04/04/19 04/23/19 Rx (NF)] Budesonide/Formote 160/4.5(NF) 1 puff INH BID 04/23/19 04/23/19 History [Symbicort 160/4.5 (NF)] Insulin Glargine,Hum.rec.anlog 60 units SUBCUT BEDTIME 04/23/19 04/23/19 History [Toujeo Max Solostar 300 units/ml 2 ml x 3 Pens] LORazepam TAB(*) [Ativan TAB(*)] 1 mg PO Q6H PRN #20 tab MDD 4 04/23/19 Rx - History of Current Complaint Chief Complaint: EDBackInjuryPain Stated Complaint: HIGH BLOOD SUGAR/BACK PAIN PER PT Time Seen by Provider: 04/23/19 17:45 Hx Obtained From: Patient Onset/Duration: Sudden Onset, Lasting Days, Still Present Onset/Duration: Started Days Ago, Still Present Timing: Constant Back Pain Location: Is Discrete @ - low left Severity Initially: Moderate Severity Currently: Severe Pain Intensity: 10 Pain Scale Used: 0-10 Numeric Character: Sharp Aggravating Symptom(s): Movement - twisting, bending Alleviating Symptom(s): Rest Associated Signs And Symptoms: Negative: Numbness, Tingling, Bladder Incontinence, Bowel Incontinence - Allergies/Home Medications Allergies/Adverse Reactions: Allergies Allergy/AdvReac Type Severity Reaction Status Date / Time bee venom protein (honey bee) Allergy Anaphylatic Verified 04/23/19 16:29 Shock dextromethorphan Allergy Nausea Verified 04/23/19 16:29 [From Mucinex DM] glipizide Allergy See Comment Verified 04/23/19 16:29 guaifenesin [From Mucinex DM] Allergy Nausea Verified 04/23/19 16:29 ibuprofen [From Motrin] Allergy rash/kidneys Verified 04/23/19 16:29 shut down nitroglycerin Allergy See Comment Verified 04/23/19 16:29 orange oil Allergy hives Uncoded 04/23/19 16:29 diff breathing Home Medications: Home Medications Mirtazapine TAB* [Remeron TAB*] 15 mg PO BEDTIME 07/21/17 [History Confirmed ] LoraTADine TAB(NF) [Claritin 10 MG TAB(NF)] 10 mg PO DAILY 09/20/18 [History Confirmed 04/23/19] BuPROPion XL* [Bupropion XL*] 150 mg PO DAILY 11/19/18 [History Confirmed ] Rivaroxaban TAB(*) [Xarelto 20 mg] 20 mg PO DAILY 11/19/18 [History Confirmed ] tadalafiL [Tadalafil] 40 mg PO DAILY 11/19/18 [History Confirmed 04/23/19] Bupropion XL* [Wellbutrin XL *] 300 mg PO DAILY 11/20/18 [History Confirmed ] Torsemide TAB* [Demadex 20 MG*] 20 mg PO DAILY 11/20/18 [History Confirmed 04/23] Allopurinol TAB* [Zyloprim 100 MG TAB*] 100 mg PO BID tab 11/25/18 [Rx Confirmed 04/23/19] Ambrisentan [Letairis] 10 mg PO DAILY 03/29/19 [History Confirmed 04/23/19] Atorvastatin* [Lipitor 10 MG*] 10 mg PO DAILY 03/29/19 [History Confirmed ] Carvedilol TAB* [Coreg TAB*] 3.125 mg PO BID 03/29/19 [History Confirmed ] Insulin Lispro Protamin/Lispro [Humalog Mix 75-25 10 ML Vial] 40 units SUBCUT DAILY 03/31/19 [History Confirmed 04/23/19] Insulin Lispro [Admelog 100 units/ml 10 ml VIAL] 0 units SUBCUT TID PC 03/31/19 [History Confirmed 04/23/19] Cefdinir cap* [Cefdinir 300 MG cap (NF)] 300 mg PO BID #12 cap 04/04/19 [Rx Confirmed 04/23/19] Budesonide/Formote 160/4.5(NF) [Symbicort 160/4.5 (NF)] 1 puff INH BID 04/23/19 [History Confirmed 04/23/19] Insulin Glargine,Hum.rec.anlog [Toudell Max Solostar 300 units/ml 2 ml x 3 Pens] 60 units SUBCUT BEDTIME 04/23/19 [History Confirmed 04/23/19] LORazepam TAB(*) [Ativan TAB(*)] 1 mg PO Q6H PRN #20 tab MDD 4 04/23/19 [Rx] PMH/Surg Hx/FS Hx/Imm Hx Endocrine/Hematology History: Reports: Hx Diabetes Denies: Hx Thyroid Disease, Hx Anemia, Hx Unexplained Bleeding Cardiovascular History: Reports: Hx Hypertension Denies: Hx Aneurysm, Hx Angina, Hx Auto Implanted Cardiovert Defib, Hx Cardiac Arrest, Hx Congenital Heart Disease, Hx Congestive Heart Failure, Hx Coronary Artery Disease, Hx Deep Vein Thrombosis, Hx Embolism, Hx Hypercholesterolemia, Hx Hypotension, Hx Myocardial Infarction, Hx Pacemaker/ICD , Hx Peripheral Vascular Disease, Hx Rheumatic Fever, Hx Syncope, Hx Valvular Heart Disease, Other Cardiovascular Problems/Disorders Respiratory History: Reports: Hx Asthma, Hx Pulmonary Embolism - currently on xarelto, Hx Sleep Apnea - uses cpap, Other Respiratory Problems/Disorders - pulmonary HTN, obstructive hypoventilation Denies: Hx Chronic Obstructive Pulmonary Disease (COPD), Hx Cystic Fibrosis, Hx Lung Cancer, Hx Pleural Effusion, Hx Pneumonia, Hx Pulmonary Edema, Hx Seasonal Allergies GI History: Denies: Hx Cirrhosis, Hx Crohn's Disease, Hx Diverticulosis, Hx Gall Bladder Disease, Hx Gastroesophageal Reflux Disease, Hx Gastrointestinal Bleed, Hx Hiatal Hernia, Hx Irritable Bowel, Hx Jaundice, Hx Obstructive Bowel, Hx Ileostomy, Hx Pyloric Stenosis, Hx Ulcer, Other GI Disorders History: Reports: Other Problems/Disorders - kidney "issues" when he takes ibuprofen Denies: Hx Acute Renal Failure, Hx Benign Prostatic Hyperplasia, Hx Chronic Renal Failure, Hx Dialysis, Hx Kidney Infection, Hx Kidney Stones, Hx Renal Disease Musculoskeletal History: Reports: Hx Gout Denies: Hx Arthritis, Hx Back Problems, Hx Bursitis, Hx Congenital Bone Abnormalities, Hx Fibromyalgia, Hx Osteoporosis, Hx Scoliosis, Hx Tendonitis, Other Musculoskeletal History Sensory History: Reports: Hx Contacts or Glasses Denies: Hx Cataracts, Hx Eye Injury, Hx Eye Prosthesis, Hx Glaucoma, Hx Legally Blind, Hx Macular Degeneration, Hx Vision Problem, Hx Deafness, Hx Hearing Aid, Hx Hearing Problem, Other Sensory Impairments Opthamlomology History: Reports: Hx Contacts or Glasses Denies: Hx Cataracts, Hx Eye Injury, Hx Eye Prosthesis, Hx Glaucoma, Hx Legally Blind, Hx Macular Degeneration, Hx Vision Problem, Other Sensory Impairments Neurological History: Reports: Other Neuro Impairments/Disorders - previous diagnosis of vertigo Denies: Hx Dementia, Hx Developmental Delay, Hx Headaches, Hx Migraine, Hx Nerve Disease, Hx Seizures, Hx Spinal Cord Injury, Hx Transient Ischemic Attacks (TIA) Psychiatric History: Reports: Hx Anxiety, Hx Depression, Hx Community Mental Health Tx, Hx Suicide Attempt Denies: Hx Attention Deficit Hyperactivity Disorder, Hx Autism, Hx Eating Disorder, Hx Panic Disorder, Hx Post Traumatic Stress Disorder, Hx Inpatient Treatment, Hx Schizophrenia, Hx Bipolar Disorder, Hx of Violent Episodes Against Others - Cancer History Cancer Type, Location and Year: none - Surgical History Surgical History: Yes Surgery Procedure, Year, and Place: RIGHT WRIST FRACTURE, SCREWS PLACED. Hx Anesthesia Reactions: No - Immunization History Date of Tetanus Vaccine: UNKNOWN Infectious Disease History: No Infectious Disease History: Denies: Hx Clostridium Difficile, Hx Hepatitis, Hx Human Immunodeficiency Virus (HIV), Hx of Known/Suspected MRSA, Hx Shingles, Hx Tuberculosis, History Other Infectious Disease, Traveled Outside the [place] in Last 30 Days - Family History Known Family History: Positive: Hypertension, Diabetes, Other - cancer Negative: Cardiac Disease - Social History Alcohol Use: None Hx Substance Use: No Substance Use Type: Reports: None Hx Tobacco Use: No Smoking Status (MU): Never Smoked Tobacco Have You Smoked in the Last Year: No Review of Systems Negative: Other - bowel incontinence Negative: incontinence Positive: Myalgia Negative: Paresthesia, Numbness All Other Systems Reviewed And Are Negative: Yes Physical Exam - Summary Physical Exam Summary: Appearance: The patient is well-nourished in no acute distress and in no acute pain. Skin: The skin is warm and dry, and skin color reflects adequate perfusion. HEENT: The head is normocephalic and atraumatic. The pupils are equal and reactive. The conjunctivae are clear and without drainage. Nares are patent and without drainage. Mouth reveals moist mucous membranes, and the throat is without erythema and exudate. The external ears are intact. The ear canals are patent and without drainage. The tympanic membranes are intact. Neck: The neck is supple with full range of motion and non-tender. There are no carotid bruits. There is no neck vein distension. Respiratory: Chest is non-tender. Lungs are clear to auscultation and breath sounds are symmetrical and equal. Cardiovascular: Heart is regular rate and rhythm. There is no murmur or rub auscultated. There is no peripheral edema and pulses are symmetrical and equal. Abdomen: The abdomen is soft and non-tender. There are normal bowel sounds heard in all four quadrants and there is no organomegaly palpated. Musculoskeletal: There is tenderness of the back in the left paralumbar area noted. Extremities are non-tender with full range of motion. There is good capillary refill. There is no peripheral edema or calf tenderness elicited. Neurological: Patient is alert and oriented to person, place and time. The patient has symmetrical motor strength in all four extremities. Cranial nerves are grossly intact. Deep tendon reflexes are symmetrical and equal in all four extremities. Psychiatric: The patient has an appropriate affect and does not exhibit any anxiety or depression. Triage Information Reviewed: Yes Vital Signs On Initial Exam: Initial Vitals Temp Pulse Resp BP Pulse Ox 98.0 F 96 17 134/91 96 04/23/19 16:27 04/23/19 16:27 04/23/19 16:27 04/23/19 16:27 04/23/19 16:27 Vital Signs Reviewed: Yes Procedures - Sedation Patient Received Moderate/Deep Sedation with Procedure: No Diagnostics - Vital Signs Vital Signs Temp Pulse Resp BP Pulse Ox 04/23/19 16:27 98.0 F 96 17 134/91 96 - Laboratory Result Diagrams: 04/23/19 18:06 04/23/19 18:06 Lab Statement: Any lab studies that have been ordered have been reviewed, and results considered in the medical decision making process. Re-Evaluation - Re-Evaluation First Eval Re-Evaluation Time: 21:00 Change: Improved Comment: We discussed results and plan for discharge. He is feeling better. Back Pain Course/Dx - Course Course Of Treatment: Mr. Urbina came in because he has had an exacerbation of his left sided low back pain that he has had in the past. When he checked his fingerstick which he does routinely, it read 500. He uses sliding scale lispro and comes in complaining only of the low back pain. His exam was consistent with a mechanical low back pain. Labs were obtained and revealed a blood sugar of 400 with no sign of DKA. He was given Ativan as a muscle relaxer and got significant relief of his pain. He slept quite a bit here. At discharge he requested that his sugar be addressed and was given 10 units of regular insulin. We're waiting to see the response at this point and I expect he would be discharged. - Diagnoses Provider Diagnoses: Low back strain Discharge ED - Sign-Out/Discharge Documenting (check all that apply): Patient Departure, Sign-Out Patient Signing out patient TO: Aly Macdonald - Discharge Plan Condition: Stable Disposition: HOME Prescriptions: LORazepam TAB(*) [Ativan TAB(*)] 1 mg PO Q6H PRN #20 tab MDD 4 PRN Reason: Pain Patient Education Materials: Low Back Strain (ED) Referrals: Chong Oliveros MD [Primary Care Provider] - 3 Days Additional Instructions: Please take medications as prescribed. Follow up with your primary care provider in 2-3 days. Return to the emergency department for any new or worsening symptoms. - Billing Disposition and Condition Condition: STABLE Disposition: Home - Attestation Statements Document Initiated by Marysolibe: Yes Documenting Scribe: Pamela Basurto Provider For Whom Rhoda is Documenting (Include Credential): Dr. Gurpreet Jaramillo MD Scribe Attestation: Pamela Luna scribed for Dr. Gurpreet Jaramillo MD on 04/23/19 at 2144. Scribe Documentation Reviewed: Yes Provider Attestation: The documentation as recorded by the Pamela colon accurately reflects the service I personally performed and the decisions made by me, Dr. Gurpreet Jaramillo MD Status of Scribfrancine Document: Viewed
[2019-04-23] MEDS ORDERED: HYDROcodone/ACETAMIN 5-325 MG* 1 TAB PO ONE (17:56)
[2019-04-23 18:15] LABS: ABS Basophils 0.1 10^3/ul (0-0.2); ABS Eosinophils 0.1 10^3/ul (0-0.6); ABS Lymphocytes 0.8 10^3/ul (1.0-4.8); ABS Monocytes 0.5 10^3/ul (0-0.8); ABS Neutrophils 6.3 10^3/ul (1.5-7.7); Eosinophil % 0.9 %; Hematocrit 39 % (42-52); Hemoglobin 13.2 g/dL (14.0-18.0); Mean Corpuscular HGB Conc 34 g/dL (31-36); Mean Corpuscular Hemoglobin 28 pg (27-31); Mean Corpuscular Volume 83 fL (80-94); Mean Platelet Volume 7.9 fL (7.4-10.4); Platelet Count 167 10^3/uL (150-450); Red Blood Count 4.71 10^6 /uL (4.18-5.48); Red Cell Distribution Width 16 % (10-15); White Blood Count 7.7 10^3/uL (3.5-10.8)
[2019-04-23 18:31] LABS: Albumin 4.1 g/dL (3.2-5.2); Albumin/Globulin Ratio 1.8 (1-3); BUN/Creatinine Ratio 22.3 (8-20); C Reactive Protein 26.89 mg/L (<8.01); Calcium 9.1 mg/dL (8.6-10.3); EGFR African American 106.5 (>60); Globulin 2.3 g/dL (2-4); Potassium 4.2 mmol/L (3.5-5.0); Total Bilirubin 0.4 mg/dL (0.2-1.0); Total Protein 6.4 g/dL (6.4-8.9)
[2019-04-23 19:25] VITALS: BP 124/73
[2019-04-23] MEDS ORDERED: LORazepam TAB(*) 1 MG PO ONE (19:27)
[2019-04-23] MEDS ORDERED: Insulin REGULAR(*) 1 UNITS UNIT IV PUSH ONE (21:17)
== END 2019-04-23 21:06 | disposition home or self-care (01) ==
LOC: ED 16:24
DX: S39.012A Strain of muscle, fascia and tendon of lower back, initial encounter (principal); V48.4XXA Person boarding or alighting a car injured in noncollision transport accident, initial encounter; Y92.9 Unspecified place or not applicable; E11.9 Type 2 diabetes mellitus without complications; I10 Essential (primary) hypertension; J45.909 Unspecified asthma, uncomplicated; Z86.711 Personal history of pulmonary embolism; Z79.01 Long term (current) use of anticoagulants; F41.9 Anxiety disorder, unspecified; F32.9 Major depressive disorder, single episode, unspecified; Z79.4 Long term (current) use of insulin; Z79.899 Other long term (current) drug therapy; Z88.6 Allergy status to analgesic agent; Z88.8 Allergy status to other drugs, medicaments and biological substances
CPT/HCPCS: 36415; 80053; 82803; 83605; 85025; 86140; 99283; A9270-GY

== ENCOUNTER 2019-10-23 16:27 | Inpatient (IN) ==
[2019-10-23 18:19] LABS: ABS Eosinophils 0.1 10^3/ul (0-0.6); ABS Lymphocytes 0.5 10^3/ul (1.0-4.8); ABS Monocytes 0.3 10^3/ul (0-0.8); ABS Neutrophils 2.1 10^3/ul (1.5-7.7); Eosinophil % 2.1 %; Hematocrit 30 % (42-52); Hemoglobin 10.1 g/dL (14.0-18.0); Lymphocyte % 17.7 %; Mean Corpuscular HGB Conc 34 g/dL (31-36); Mean Corpuscular Hemoglobin 29 pg (27-31); Mean Corpuscular Volume 83 fL (80-94); Mean Platelet Volume 8.2 fL (7.4-10.4); Nucleated Red Blood Cells % 0.1; Platelet Count 101 10^3/uL (150-450); Red Blood Count 3.53 10^6 /uL (4.18-5.48); Red Cell Distribution Width 15 % (10-15)
[2019-10-23 19:01] LABS: ALT 22 U/L (7-52); AST 20 U/L (13-39); Albumin 2.8 g/dL (3.2-5.2); Albumin/Globulin Ratio 1.8 (1-3); Alkaline Phosphatase 35 U/L (34-104); Anion Gap 5 mmol/L (2-11); BUN/Creatinine Ratio 16.4 (8-20); Blood Urea Nitrogen 11 mg/dL (6-24); CO2 Carbon Dioxide 23 mmol/L (22-32); Calcium 6.7 mg/dL (8.6-10.3); Chloride 108 mmol/L (101-111); EGFR African American 157.4 (>60); EGFR Non-African American 130.1 (>60); Globulin 1.6 g/dL (2-4); Glucose 237 mg/dL (70-100); Potassium 3.2 mmol/L (3.5-5.0); Sodium 136 mmol/L (135-145); Total Protein 4.4 g/dL (6.4-8.9)
[2019-10-23 19:05] LABS: Troponin I 0.18 ng/mL (<0.03)
[2019-10-23] MEDS ORDERED: Potassium Chlor 20 meq TAB.ER PO ONE (20:30)
[2019-10-23] MEDS ORDERED: Amoxicillin/Clavul 875/125 TAB (Augmentin 875 tab) PO ONE (20:43)
[2019-10-23] MEDS ORDERED: Metoprolol Tartrate 5 mg VIAL 5 ml VIAL (1 mg/ml) IV ONE ×2 (20:51)
[2019-10-23] MEDS ORDERED: Heparin - STEMI 5,000 UNITS/ML 1 ml VIAL IV ONE (20:52)
[2019-10-23] MEDS ORDERED: Heparin DRIP 25,000 UNITS BAG 25,000 UNITS/500 ML BAG IV SCH (21:00)
[2019-10-23] MEDS ORDERED: Heparin 5000 UNITS/ML 1 mL VIAL IV SCH (21:00)
[2019-10-23] MEDS ORDERED: Dextrose 50% Syringe 50 ml 25 GM/50 ML SYRINGE IV PUSH PRN (21:19)
[2019-10-23 21:28] LABS: Troponin I 0.21 ng/mL (<0.03)
[2019-10-23 21:43] LABS: Activated Partial Thrombo Time 33.6 seconds (26.0-38.0); INR 1.38 (0.82-1.09)
[2019-10-23 21:47] LABS: C Reactive Protein 38.37 mg/L (<8.01)
[2019-10-23 22:36] LABS: Erythrocyte Sed Rate 20 mm/Hr (0-14)
[2019-10-23] MEDS ORDERED: Iodixanol (CONTRAST) 320 MG/ML 100 ML SDV IV ONE (23:20)
[2019-10-23] MEDS ORDERED: Ondansetron 4 mg VIAL 2 MG/ML 2 ml VIAL IV PRN (23:56)
[2019-10-23] MEDS ORDERED: Al Hydrox/Mg Hydrox/Simet LIQ 30 ML UDC PO PRN (23:56)
[2019-10-24 00:43] LABS: Troponin I 0.18 ng/mL (<0.03)
[2019-10-24] MEDS: Tobramycin 0.3% OPHTH.SOL 5 ML BOT (regular eye drops) BOTH EYES SCH ×2 (01:49→01:50)
[2019-10-24 02:31] LABS: Magnesium 1.4 mg/dL (1.9-2.7)
[2019-10-24] MEDS: Insulin GLARGINE 100 un/ml 10 ml VIAL SUBCUT SCH ×3 (03:37→21:30)
[2019-10-24] MEDS ORDERED: Insulin GLARGINE 100 un/ml 10 ml VIAL SUBCUT ONE (03:45)
[2019-10-24 05:37] LABS: Hematocrit 32 % (42-52); Hemoglobin 11.4 g/dL (14.0-18.0); Mean Corpuscular HGB Conc 36 g/dL (31-36); Mean Corpuscular Hemoglobin 29 pg (27-31); Mean Corpuscular Volume 82 fL (80-94); Platelet Count 118 10^3/uL (150-450); Red Blood Count 3.91 10^6 /uL (4.18-5.48); Red Cell Distribution Width 15 % (10-15); White Blood Count 4.4 10^3/uL (3.5-10.8)
[2019-10-24 05:54] LABS: Anion Gap 6 mmol/L (2-11); BUN/Creatinine Ratio 14.1 (8-20); Blood Urea Nitrogen 11 mg/dL (6-24); CO2 Carbon Dioxide 25 mmol/L (22-32); Calcium 8.4 mg/dL (8.6-10.3); Chloride 99 mmol/L (101-111); EGFR African American 132.1 (>60); EGFR Non-African American 109.2 (>60); Glucose 232 mg/dL (70-100); Magnesium 1.8 mg/dL (1.9-2.7); Potassium 4.1 mmol/L (3.5-5.0); Sodium 130 mmol/L (135-145)
[2019-10-24] MEDS ORDERED: Perflutren Lipid Microsphere 3 ML VIAL ONE (08:00)
[2019-10-24] MEDS ORDERED: Magnesium Sulfate 2 gm BAG 2 GM/50 ML BAG IVPB ONE (08:00)
[2019-10-24 08:19] LABS: % Iron Saturation 17 % (15-55); Iron 41 ug/dL (50-212); Total Iron Binding Capacity 238 mcg/dL (250-450); Transferrin 170 mg/dL (203-362); Unsaturated Iron Binding < 223 ug/dL
[2019-10-24] MEDS: AMBRISENTAN 10 MG PO SCH (08:39)
[2019-10-24] MEDS: PTO:Tadalafil 20 mg TAB (NF) PO SCH (08:39)
[2019-10-24 08:45] LABS: Vitamin B12 432 pg/mL (180-914)
[2019-10-24 10:25] LABS: Cholesterol 94 mg/dL; HDL Cholesterol 16.8 mg/dL; LDL Cholesterol 46 mg/dL; Triglycerides 158 mg/dL
[2019-10-24 10:30] LABS: ABS Eosinophils 0.1 10^3/ul (0-0.6); ABS Lymphocytes 0.7 10^3/ul (1.0-4.8); ABS Monocytes 0.4 10^3/ul (0-0.8); ABS Neutrophils 3.1 10^3/ul (1.5-7.7); Eosinophil % 2.1 %; Nucleated Red Blood Cells % 0.1
[2019-10-24 10:59] LABS: Troponin I 0.15 ng/mL (<0.03)
[2019-10-25] MEDS ORDERED: NS 0.9% 1000 ml BAG 1,000 ML IV ONE (00:01)
[2019-10-25 00:36] LABS: ABS Eosinophils 0.1 10^3/ul (0-0.6); ABS Lymphocytes 0.6 10^3/ul (1.0-4.8); ABS Monocytes 0.3 10^3/ul (0-0.8); ABS Neutrophils 3.1 10^3/ul (1.5-7.7); Eosinophil % 1.5 %; Hematocrit 33 % (42-52); Hemoglobin 11.2 g/dL (14.0-18.0); Mean Corpuscular HGB Conc 34 g/dL (31-36); Mean Corpuscular Hemoglobin 29 pg (27-31); Mean Corpuscular Volume 84 fL (80-94); Mean Platelet Volume 8.1 fL (7.4-10.4); Nucleated Red Blood Cells % 0.2; Platelet Count 145 10^3/uL (150-450); Red Cell Distribution Width 15 % (10-15); White Blood Count 4.1 10^3/uL (3.5-10.8)
[2019-10-25 01:05] LABS: Influenza A Molecular Negative (Negative); Influenza B Molecular Negative (Negative)
[2019-10-25 02:14] LABS: Urine Appearance Clear; Urine Bilirubin Negative (Negative); Urine Blood Negative (Negative); Urine Color Amber; Urine Glucose 1+(50 mg/dL) (Negative); Urine Ketones Trace (Negative); Urine Nitrite Negative (Negative); Urine Protein 1+(30 mg/dL) (Negative); Urine Specific Gravity 1.026 (1.010-1.030); Urine Urobilinogen Negative (Negative)
[2019-10-25 02:17] LABS: Urine Bacteria Absent (Absent); Urine Red Blood Cell Trace(0-2/hpf) (Absent); Urine White Blood Cell 1+(6-10/hpf) (Absent)
[2019-10-25 07:30] LABS: BUN/Creatinine Ratio 11.6 (8-20); Calcium 8.3 mg/dL (8.6-10.3); EGFR Non-African American 97.5 (>60); Magnesium 2.2 mg/dL (1.9-2.7)
[2019-10-25] MEDS: Insulin GLARGINE 100 un/ml 10 ml VIAL SUBCUT SCH ×2 (08:55→12:28)
[2019-10-25] MEDS: PTO:Tadalafil 20 mg TAB (NF) PO SCH ×2 (08:55→11:53)
[2019-10-25] MEDS: AMBRISENTAN 10 MG PO SCH ×2 (08:55→11:52)
[2019-10-25 15:11] VITALS: BP 122/68
== END 2019-10-25 16:19 | disposition home or self-care (01) | DRG 281 ==
LOC: ED 16:27 → SSU 10-24 00:57 → MEDTELE 10-24 01:16
PROVIDERS: ADMIT Pediatrics; ATTEND Internal Medicine

== ENCOUNTER 2020-01-07 19:35 | Inpatient (IN) ==
[2020-01-07 22:21] LABS: ABS Basophils 0.1 10^3/ul (0-0.2); ABS Eosinophils 0.1 10^3/ul (0-0.6); ABS Lymphocytes 0.6 10^3/ul (1.0-4.8); ABS Monocytes 0.8 10^3/ul (0-0.8); ABS Neutrophils 11.4 10^3/ul (1.5-7.7); Eosinophil % 0.5 %; Hematocrit 40 % (42-52); Hemoglobin 13.9 g/dL (14.0-18.0); Lymphocyte % 4.7 %; Mean Corpuscular HGB Conc 35 g/dL (31-36); Mean Corpuscular Hemoglobin 29 pg (27-31); Mean Corpuscular Volume 83 fL (80-94); Mean Platelet Volume 7.8 fL (7.4-10.4); Platelet Count 165 10^3/uL (150-450); Red Blood Count 4.83 10^6 /uL (4.18-5.48); Red Cell Distribution Width 16 % (10-15)
[2020-01-07 22:27] LABS: INR 1.69 (0.82-1.09)
[2020-01-07 22:37] LABS: Albumin 3.6 g/dL (3.2-5.2); Albumin/Globulin Ratio 1.3 (1-3); BUN/Creatinine Ratio 14.1 (8-20); C Reactive Protein 228.13 mg/L (<8.01); Calcium 8.3 mg/dL (8.6-10.3); EGFR African American 99.8 (>60); EGFR Non-African American 82.5 (>60); Globulin 2.8 g/dL (2-4); Total Protein 6.4 g/dL (6.4-8.9)
[2020-01-07] MEDS ORDERED: Piperacillin/Tazobac ADVAN 3.375 GM in NS 0.9% 100 ml BAG 100 ML IVPB ONE (22:53)
[2020-01-08 00:50] LABS: Urine Appearance Clear; Urine Bilirubin Negative (Negative); Urine Blood Negative (Negative); Urine Color Yellow; Urine Glucose 3+(>=500 mg/dL) (Negative); Urine Ketones 2+ (Negative); Urine Nitrite Negative (Negative); Urine Protein 1+(30 mg/dL) (Negative); Urine Specific Gravity 1.024 (1.010-1.030); Urine Urobilinogen Positive (Negative)
[2020-01-08 01:30] LABS: Urine Bacteria Absent (Absent); Urine Red Blood Cell Trace(0-2/hpf) (Absent); Urine Squamous Epithelial Cell Present (Absent); Urine White Blood Cell Trace(0-5/hpf) (Absent)
[2020-01-08 02:20] LABS: ALT 11 U/L (7-52); Albumin 3.5 g/dL (3.2-5.2); Albumin/Globulin Ratio 1.3 (1-3); Alkaline Phosphatase 43 U/L (34-104); BUN/Creatinine Ratio 15.1 (8-20); Blood Urea Nitrogen 14 mg/dL (6-24); CO2 Carbon Dioxide 21 mmol/L (22-32); Chloride 93 mmol/L (101-111); EGFR African American 107.3 (>60); EGFR Non-African American 88.7 (>60); Globulin 2.6 g/dL (2-4); Glucose 344 mg/dL (70-100); Sodium 126 mmol/L (135-145); Total Protein 6.1 g/dL (6.4-8.9)
[2020-01-08 02:24] LABS: Anion Gap 12 mmol/L (2-11)
[2020-01-08 03:14] LABS: Potassium Redraw 3.7 mmol/L (3.5-5.0)
[2020-01-08] MEDS ORDERED: Aspirin EC 81 mg TAB.EC (enteric coated) PO PRN (04:00)
[2020-01-08] MEDS ORDERED: Dextrose 50% Syringe 50 ml 25 GM/50 ML SYRINGE IV PUSH PRN (04:02)
[2020-01-08] MEDS ORDERED: Zosyn per Pharmacy NOTE FOLLOW UP SCH (05:00)
[2020-01-08] MEDS: ZOSYN 3.375 GM Q8H per EXTENDED INFUSION IV SCH ×3 (06:30→21:57)
[2020-01-08] MEDS: NFT: Dulaglutide (NF) 0.75 MG/0.5 ML SYRINGE SUBCUT SCH (08:27)
[2020-01-08] MEDS ORDERED: Insulin GLARGINE 100 un/ml 10 ml VIAL SUBCUT SCH ×2 (09:00→21:00)
[2020-01-08] MEDS ORDERED: Vancomycin 1,000 MG in NS 0.9% 250 ml 250 ML IVPB SCH (15:00)
[2020-01-08] MEDS: Insulin GLARGINE 100 un/ml 10 ml VIAL SUBCUT SCH (21:58)
[2020-01-09 05:56] LABS: ABS Eosinophils 0.2 10^3/ul (0-0.6); ABS Lymphocytes 0.7 10^3/ul (1.0-4.8); ABS Monocytes 0.5 10^3/ul (0-0.8); ABS Neutrophils 7.4 10^3/ul (1.5-7.7); Eosinophil % 2.4 %; Hematocrit 36 % (42-52); Hemoglobin 12.1 g/dL (14.0-18.0); Lymphocyte % 7.5 %; Mean Corpuscular HGB Conc 34 g/dL (31-36); Mean Corpuscular Hemoglobin 28 pg (27-31); Mean Corpuscular Volume 84 fL (80-94); Mean Platelet Volume 7.5 fL (7.4-10.4); Platelet Count 168 10^3/uL (150-450); Red Blood Count 4.25 10^6 /uL (4.18-5.48); Red Cell Distribution Width 16 % (10-15); White Blood Count 8.7 10^3/uL (3.5-10.8)
[2020-01-09] MEDS: ZOSYN 3.375 GM Q8H per EXTENDED INFUSION IV SCH ×2 (06:10→12:19)
[2020-01-09 06:11] LABS: BUN/Creatinine Ratio 12.5 (8-20); Calcium 8.3 mg/dL (8.6-10.3); EGFR African American 127.7 (>60); EGFR Non-African American 105.5 (>60); Potassium 3.7 mmol/L (3.5-5.0)
[2020-01-09] MEDS: Insulin GLARGINE 100 un/ml 10 ml VIAL SUBCUT SCH (08:32)
[2020-01-09] MEDS: NFT: Dulaglutide (NF) 0.75 MG/0.5 ML SYRINGE SUBCUT SCH (08:34)
[2020-01-09 11:46] VITALS: BP 126/77
== END 2020-01-09 15:20 | disposition home or self-care (01) | DRG 872 ==
LOC: ED 19:35 → MED 01-08 03:55
PROVIDERS: ADMIT Student in an Organized Health Care Education/Training Program; ATTEND Internal Medicine

== ENCOUNTER 2020-07-28 10:34 | Inpatient (IN) ==
[2020-07-28 11:21] LABS: ABS Basophils 0.1 10^3/ul (0-0.2); ABS Eosinophils 0.1 10^3/ul (0-0.6); ABS Lymphocytes 0.5 10^3/ul (1.0-4.8); ABS Neutrophils 15.3 10^3/ul (1.5-7.7); Eosinophil % 0.3 %; Hematocrit 45 % (42-52); Hemoglobin 15.3 g/dL (14.0-18.0); Lymphocyte % 2.8 %; Mean Corpuscular HGB Conc 34 g/dL (31-36); Mean Corpuscular Hemoglobin 30 pg (27-31); Mean Corpuscular Volume 88 fL (80-94); Mean Platelet Volume 7.7 fL (7.4-10.4); Platelet Count 184 10^3/uL (150-450); Red Blood Count 5.15 10^6 /uL (4.18-5.48); Red Cell Distribution Width 15 % (10-15); White Blood Count 16.9 10^3/uL (3.5-10.8)
[2020-07-28 11:37] LABS: Albumin 4.4 g/dL (3.2-5.2); Albumin/Globulin Ratio 1.6 (1-3); Calcium 9.6 mg/dL (8.6-10.3); EGFR African American 76.3 (>60); Globulin 2.8 g/dL (2-4); Potassium 4.9 mmol/L (3.5-5.0); Total Bilirubin 0.9 mg/dL (0.2-1.0); Total Protein 7.2 g/dL (6.4-8.9)
[2020-07-28] MEDS ORDERED: Iodixanol (CONTRAST) 320 MG/ML 100 ML SDV IV ONE (11:44)
[2020-07-28] MEDS ORDERED: NS 0.9% 1000 ml BAG 1,000 ML IV ONE (11:58)
[2020-07-28] MEDS ORDERED: Piperacillin/Tazobac ADVAN 3.375 GM in NS 0.9% 100 ml BAG 100 ML IV ONE (12:50)
[2020-07-28] MEDS ORDERED: Lidocaine 1% w EPI 1:100,000 MDV 20 ML VIAL INJ ONE (13:22)
[2020-07-28] MEDS ORDERED: Al Hydrox/Mg Hydrox/Simet LIQ 30 ML UDC PO PRN (13:55)
[2020-07-28] MEDS ORDERED: Vancomycin 2,000 MG in NS 0.9% 500 ml BAG 500 ML IVPB ONE (15:30)
[2020-07-28] MEDS ORDERED: Vancomycin per Pharmacy 1 EA NOTE FOLLOW UP PRN (15:32)
[2020-07-28] MEDS: Ondansetron 4 mg VIAL 2 MG/ML 2 ml VIAL IV PRN (15:44)
[2020-07-28] MEDS: Insulin GLARGINE 100 un/ml 10 ml VIAL SUBCUT SCH (22:07)
[2020-07-28] MEDS: Cefepime 2 GM in Dextrose 2 GM/50 ML BAG IV SCH (23:02)
[2020-07-29] MEDS: Cefepime 2 GM in Dextrose 2 GM/50 ML BAG IV SCH ×3 (06:22→23:00)
[2020-07-29 06:23] LABS: Hematocrit 46 % (42-52); Hemoglobin 15.3 g/dL (14.0-18.0); Mean Corpuscular HGB Conc 33 g/dL (31-36); Mean Corpuscular Hemoglobin 29 pg (27-31); Mean Corpuscular Volume 88 fL (80-94); Mean Platelet Volume 7.6 fL (7.4-10.4); Platelet Count 195 10^3/uL (150-450); Red Blood Count 5.23 10^6 /uL (4.18-5.48); Red Cell Distribution Width 15 % (10-15); White Blood Count 23.1 10^3/uL (3.5-10.8)
[2020-07-29 06:43] LABS: ABS Basophils 0.1 10^3/ul (0-0.2); ABS Lymphocytes 0.3 10^3/ul (1.0-4.8); ABS Monocytes 1.8 10^3/ul (0-0.8); ABS Neutrophils 20.9 10^3/ul (1.5-7.7); Calcium 9.3 mg/dL (8.6-10.3); EGFR African American 77.7 (>60); EGFR Non-African American 64.2 (>60); Eosinophil % 0.1 %; Lymphocyte % 1.3 %; Potassium 4.6 mmol/L (3.5-5.0)
[2020-07-29] MEDS ORDERED: Vancomycin 1000 MG in NS 0.9% 250 ML IVPB SCH (08:00)
[2020-07-29 09:47] LABS: Urine Appearance Clear; Urine Bilirubin Negative (Negative); Urine Blood Negative (Negative); Urine Color Yellow; Urine Glucose 3+(>=500 mg/dL) (Negative); Urine Ketones 2+ (Negative); Urine Nitrite Negative (Negative); Urine Protein Negative (Negative); Urine Specific Gravity 1.023 (1.002-1.030); Urine Urobilinogen Negative (Negative)
[2020-07-29] MEDS: Insulin GLARGINE 100 un/ml 10 ml VIAL SUBCUT SCH ×2 (10:07→22:39)
[2020-07-29] MEDS: NS 0.9% 1000 ml BAG 1,000 ML IV SCH ×4 (10:18→20:25)
[2020-07-29] MEDS ORDERED: NS 0.9% 1000 ml BAG 1,000 ML IV ONE (16:57)
[2020-07-29 17:02] LABS: Calcium 8.3 mg/dL (8.6-10.3); EGFR African American 108.6 (>60); EGFR Non-African American 89.8 (>60); Potassium 4.2 mmol/L (3.5-5.0)
[2020-07-29] MEDS: Ondansetron 4 mg VIAL 2 MG/ML 2 ml VIAL IV PRN (20:25)
[2020-07-29] MEDS ORDERED: Pantoprazole VIAL 40 MG VIAL IV ONE (21:42)
[2020-07-30] MEDS ORDERED: NS 0.9% 500 ml BAG 500 ML IV ONE (01:46)
[2020-07-30] MEDS ORDERED: Lactated Ringers 1000 ml BAG 1,000 ML IV ONE (01:57)
[2020-07-30 04:21] LABS: ABS Lymphocytes 0.2 10^3/ul (1.0-4.8); ABS Monocytes 0.9 10^3/ul (0-0.8); ABS Neutrophils 9.7 10^3/ul (1.5-7.7); Eosinophil % 0.1 %; Hematocrit 37 % (42-52); Hemoglobin 12.5 g/dL (14.0-18.0); Mean Corpuscular HGB Conc 34 g/dL (31-36); Mean Corpuscular Hemoglobin 29 pg (27-31); Mean Corpuscular Volume 87 fL (80-94); Mean Platelet Volume 7.4 fL (7.4-10.4); Platelet Count 130 10^3/uL (150-450); Red Blood Count 4.27 10^6 /uL (4.18-5.48); Red Cell Distribution Width 15 % (10-15); White Blood Count 10.8 10^3/uL (3.5-10.8)
[2020-07-30 04:45] LABS: EGFR African American 120.7 (>60); EGFR Non-African American 99.7 (>60); Potassium 3.8 mmol/L (3.5-5.0)
[2020-07-30] MEDS: NS 0.9% 1000 ml BAG 1,000 ML IV SCH ×2 (05:36→14:12)
[2020-07-30] MEDS ORDERED: Cefepime 2 GM in Dextrose 2 GM/50 ML BAG IV SCH (07:30)
[2020-07-30] MEDS ORDERED: Vancomycin Trough Check NOTE FOLLOW UP ONE (08:00)
[2020-07-30] MEDS: Insulin GLARGINE 100 un/ml 10 ml VIAL SUBCUT SCH ×2 (09:05→22:31)
[2020-07-30 11:39] LABS: C Reactive Protein 301.12 mg/L (<8.01)
[2020-07-30 11:58] LABS: PCO2 Arterial 21 mmHg (35-45); PO2 Arterial 105 mmHg (80-100)
[2020-07-30 12:51] LABS: Hematocrit 36 % (42-52); Hemoglobin 12.2 g/dL (14.0-18.0)
[2020-07-30] MEDS: ceFAZolin 2 GM PREMIX 2 GM/50 ML BAG IVPB SCH ×2 (14:11→22:17)
[2020-07-30] MEDS ORDERED: NS 0.9% 1000 ml BAG 1,000 ML IV SCH (16:30)
[2020-07-30 19:52] LABS: EGFR African American 129.5 (>60); Potassium 3.5 mmol/L (3.5-5.0)
[2020-07-30] MEDS: Pantoprazole VIAL 40 MG VIAL IV SCH (22:17)
[2020-07-30] MEDS ORDERED: Sodium Bicarb 8.4% Vial 50 ML 150 MEQ in D5W 1000 ml BAG 850 ML IV SCH (23:45)
[2020-07-31] MEDS: Sodium Citrate/Citric Acid LIQ 15 ML UDC PO SCH ×4 (00:05→20:50)
[2020-07-31] MEDS: ceFAZolin 2 GM PREMIX 2 GM/50 ML BAG IVPB SCH ×4 (06:00→20:48)
[2020-07-31] MEDS ORDERED: NS 0.9% 1000 ml BAG 1,000 ML IV SCH (06:33)
[2020-07-31 06:37] LABS: Hematocrit 34 % (42-52); Hemoglobin 11.7 g/dL (14.0-18.0); Mean Corpuscular HGB Conc 35 g/dL (31-36); Mean Corpuscular Hemoglobin 30 pg (27-31); Mean Corpuscular Volume 86 fL (80-94); Mean Platelet Volume 7.8 fL (7.4-10.4); Platelet Count 113 10^3/uL (150-450); Red Blood Count 3.95 10^6 /uL (4.18-5.48); Red Cell Distribution Width 15 % (10-15); White Blood Count 8.7 10^3/uL (3.5-10.8)
[2020-07-31 06:47] LABS: EGFR Non-African American 127.3 (>60); Potassium 3.1 mmol/L (3.5-5.0)
[2020-07-31] MEDS ORDERED: Perflutren Lipid Microsphere 3 ML VIAL ONE (07:51)
[2020-07-31] MEDS: KCL 20 MEQ/100 ML IVPREMIX 20 MEQ/100 ML BAG IV SCH ×2 (08:35→11:30)
[2020-07-31] MEDS: Insulin GLARGINE 100 un/ml 10 ml VIAL SUBCUT SCH ×2 (08:39→20:49)
[2020-07-31] MEDS: Pantoprazole VIAL 40 MG VIAL IV SCH ×2 (08:40→20:50)
[2020-07-31 11:04] LABS: Venous Bicarbonate HCO3 17.8 mmol/L (24-28)
[2020-07-31] MEDS: AMBRISENTAN 10 MG PO SCH (12:45)
[2020-07-31] MEDS: TADALAFIL 20 MG PO SCH (12:45)
[2020-07-31 18:07] LABS: Calcium 7.8 mg/dL (8.6-10.3); EGFR African American 188.8 (>60); Potassium 3.2 mmol/L (3.5-5.0)
[2020-07-31] MEDS ORDERED: NS 0.9% IV SCH (18:37)
[2020-07-31] MEDS ORDERED: POTASSIUM CHLORIDE IV SCH (18:37)
[2020-07-31] MEDS: NS 0.9% w/ 40 Meq KCL 1000 ML 1,000 ML IV SCH (19:43)
[2020-07-31 21:11] LABS: Magnesium 1.7 mg/dL (1.9-2.7)
[2020-07-31] MEDS ORDERED: Magnesium Sulfate 2 gm BAG 2 GM/50 ML BAG IVPB ONE (21:14)
[2020-08-01] MEDS: ceFAZolin 2 GM PREMIX 2 GM/50 ML BAG IVPB SCH ×3 (04:10→19:54)
[2020-08-01] MEDS: NS 0.9% w/ 40 Meq KCL 1000 ML 1,000 ML IV SCH (08:09)
[2020-08-01] MEDS: AMBRISENTAN 10 MG PO SCH (08:09)
[2020-08-01] MEDS: TADALAFIL 20 MG PO SCH (08:09)
[2020-08-01] MEDS: Sodium Citrate/Citric Acid LIQ 15 ML UDC PO SCH ×3 (08:09→19:54)
[2020-08-01] MEDS: Pantoprazole VIAL 40 MG VIAL IV SCH (08:10)
[2020-08-01] MEDS: Insulin GLARGINE 100 un/ml 10 ml VIAL SUBCUT SCH ×2 (08:11→19:54)
[2020-08-01] MEDS ORDERED: NS 0.9% 1000 ml BAG 1,000 ML IV SCH (08:15)
[2020-08-01 08:34] LABS: Venous Bicarbonate HCO3 19.5 mmol/L (24-28)
[2020-08-01 08:51] LABS: ABS Eosinophils 0.1 10^3/ul (0-0.6); ABS Lymphocytes 0.4 10^3/ul (1.0-4.8); ABS Monocytes 0.5 10^3/ul (0-0.8); ABS Neutrophils 5.9 10^3/ul (1.5-7.7); Eosinophil % 1.2 %; Hematocrit 40 % (42-52); Hemoglobin 13.5 g/dL (14.0-18.0); Lymphocyte % 6.2 %; Mean Corpuscular HGB Conc 34 g/dL (31-36); Mean Corpuscular Hemoglobin 29 pg (27-31); Mean Corpuscular Volume 87 fL (80-94); Mean Platelet Volume 7.7 fL (7.4-10.4); Platelet Count 111 10^3/uL (150-450); Red Blood Count 4.62 10^6 /uL (4.18-5.48); Red Cell Distribution Width 15 % (10-15); White Blood Count 6.9 10^3/uL (3.5-10.8)
[2020-08-01 08:54] LABS: Calcium 7.8 mg/dL (8.6-10.3); EGFR African American 188.8 (>60); Potassium 3.3 mmol/L (3.5-5.0)
[2020-08-01] MEDS ORDERED: KCL 20 MEQ/100 ML IVPREMIX 20 MEQ/100 ML BAG IV ONE (11:09)
[2020-08-01 12:47] LABS: C Reactive Protein 195.1 mg/L (<8.01)
[2020-08-01] MEDS ORDERED: Lactated Ringers 500 ml BAG 500 ML IV ONE (21:19)
[2020-08-02] MEDS: ceFAZolin 2 GM PREMIX 2 GM/50 ML BAG IVPB SCH ×2 (04:09→11:55)
[2020-08-02 04:40] LABS: Hematocrit 38 % (42-52); Hemoglobin 12.6 g/dL (14.0-18.0); Mean Corpuscular HGB Conc 33 g/dL (31-36); Mean Corpuscular Hemoglobin 29 pg (27-31); Mean Corpuscular Volume 86 fL (80-94); Mean Platelet Volume 7.5 fL (7.4-10.4); Platelet Count 141 10^3/uL (150-450); Red Blood Count 4.38 10^6 /uL (4.18-5.48); Red Cell Distribution Width 15 % (10-15); White Blood Count 7.9 10^3/uL (3.5-10.8)
[2020-08-02 04:54] LABS: Calcium 7.8 mg/dL (8.6-10.3); EGFR African American 162.2 (>60); EGFR Non-African American 134.1 (>60); Potassium 3.3 mmol/L (3.5-5.0)
[2020-08-02 05:28] LABS: ABS Eosinophils 0.1 10^3/ul (0-0.6); ABS Lymphocytes 0.5 10^3/ul (1.0-4.8); ABS Monocytes 0.7 10^3/ul (0-0.8); ABS Neutrophils 6.6 10^3/ul (1.5-7.7); Eosinophil % 0.8 %; Lymphocyte % 6.8 %; Nucleated Red Blood Cells % 0.1
[2020-08-02] MEDS ORDERED: KCL 20 MEQ/100 ML IVPREMIX 20 MEQ/100 ML BAG IV ONE (06:46)
[2020-08-02 07:17] LABS: Magnesium 1.8 mg/dL (1.9-2.7)
[2020-08-02] MEDS ORDERED: Magnesium Sulfate 2 gm BAG 2 GM/50 ML BAG IVPB ONE (07:49)
[2020-08-02] MEDS ORDERED: Calcium Citrate 200 mg TAB PO SCH (09:00)
[2020-08-02] MEDS: Insulin GLARGINE 100 un/ml 10 ml VIAL SUBCUT SCH (09:15)
[2020-08-02] MEDS: AMBRISENTAN 10 MG PO SCH (09:16)
[2020-08-02] MEDS: TADALAFIL 20 MG PO SCH (09:16)
[2020-08-02 11:25] VITALS: BP 104/42
== END 2020-08-02 14:30 | disposition home or self-care (01) | DRG 871 ==
LOC: ED 10:34 → SSU 10:34
PROVIDERS: ADMIT Hospitalist; ATTEND Internal Medicine

== ENCOUNTER 2020-10-30 13:52 | Inpatient (IN) ==
[2020-10-30] MEDS ORDERED: Piperacillin/Tazobac ADVAN 3.375 GM in NS 0.9% 100 ml BAG 100 ML IV ONE (15:34)
[2020-10-30 15:42] LABS: ABS Eosinophils 0.2 10^3/ul (0-0.6); ABS Lymphocytes 0.7 10^3/ul (1.0-4.8); ABS Monocytes 0.6 10^3/ul (0-0.8); ABS Neutrophils 9.6 10^3/ul (1.5-7.7); Eosinophil % 1.7 %; Hematocrit 46 % (42-52); Hemoglobin 15.4 g/dL (14.0-18.0); Lymphocyte % 6.2 %; Mean Corpuscular HGB Conc 34 g/dL (31-36); Mean Corpuscular Hemoglobin 29 pg (27-31); Mean Corpuscular Volume 88 fL (80-94); Mean Platelet Volume 7.7 fL (7.4-10.4); Platelet Count 189 10^3/uL (150-450); Red Blood Count 5.24 10^6 /uL (4.18-5.48); Red Cell Distribution Width 15 % (10-15); White Blood Count 11.1 10^3/uL (3.5-10.8)
[2020-10-30 16:13] LABS: Albumin 4.5 g/dL (3.2-5.2); Albumin/Globulin Ratio 1.6 (1-3); C Reactive Protein 87.99 mg/L (<8.01); EGFR African American 96.5 (>60); EGFR Non-African American 79.7 (>60); Globulin 2.9 g/dL (2-4); Total Bilirubin 0.6 mg/dL (0.2-1.0); Total Protein 7.4 g/dL (6.4-8.9)
[2020-10-30] MEDS ORDERED: Iodixanol (CONTRAST) 320 MG/ML 100 ML SDV IV ONE (16:24)
[2020-10-30] MEDS ORDERED: Lactated Ringers 1000 ml BAG 1,000 ML IV ONE (19:10)
[2020-10-30] MEDS ORDERED: Al Hydrox/Mg Hydrox/Simet LIQ 30 ML UDC PO PRN (21:13)
[2020-10-30] MEDS ORDERED: Dextrose 50% Syringe 50 ml 25 GM/50 ML SYRINGE IV PUSH PRN (22:16)
[2020-10-30] MEDS ORDERED: Zosyn per Pharmacy NOTE FOLLOW UP SCH (23:00)
[2020-10-31] MEDS ORDERED: ZOSYN 3.375 GM x ONE DOSE over 30 miuntes IV (01:00)
[2020-10-31] MEDS: Insulin GLARGINE 100 un/ml 10 ml VIAL SUBCUT SCH ×2 (01:35→21:50)
[2020-10-31] MEDS: ZOSYN 3.375 GM Q8H per EXTENDED INFUSION IV SCH ×3 (05:31→21:42)
[2020-10-31] MEDS: TADALAFIL 20 MG PO SCH (08:53)
[2020-10-31] MEDS: AMBRISENTAN 10 MG PO SCH (08:53)
[2020-10-31 10:44] LABS: Urine Appearance Clear; Urine Bilirubin Negative (Negative); Urine Blood Negative (Negative); Urine Color Yellow; Urine Glucose 3+(>=500 mg/dL) (Negative); Urine Ketones 2+ (Negative); Urine Nitrite Negative (Negative); Urine Protein Negative (Negative); Urine Specific Gravity 1.029 (1.002-1.030); Urine Urobilinogen Negative (Negative)
[2020-11-01] MEDS: ZOSYN 3.375 GM Q8H per EXTENDED INFUSION IV SCH (05:54)
[2020-11-01] MEDS ORDERED: Iodixanol (CONTRAST) 320 MG/ML 100 ML SDV IV ONE (10:50)
[2020-11-01] MEDS ORDERED: Vancomycin per Pharmacy 1 EA NOTE FOLLOW UP SCH (11:00)
[2020-11-01] MEDS ORDERED: Vancomycin 2,000 MG in NS 0.9% 500 ml BAG 500 ML IVPB ONE (11:30)
[2020-11-01] MEDS: AMBRISENTAN 10 MG PO SCH (13:11)
[2020-11-01] MEDS: TADALAFIL 20 MG PO SCH (13:11)
[2020-11-01] MEDS: Cefepime 1 GM in Dextrose 1 GM/50 ML BAG IV SCH ×2 (13:32→23:45)
[2020-11-02] MEDS ORDERED: Vancomycin 1,750 MG in NS 0.9% 500 ml BAG 500 ML IVPB SCH (01:00)
[2020-11-02 08:02] VITALS: BP 106/58
[2020-11-02] MEDS: TADALAFIL 20 MG PO SCH (09:30)
[2020-11-02] MEDS: AMBRISENTAN 10 MG PO SCH (09:32)
[2020-11-03] MEDS ORDERED: Vancomycin Trough Check NOTE FOLLOW UP ONE (12:30)
== END 2020-11-02 12:15 | disposition home or self-care (01) | DRG 603 ==
LOC: ED 13:52 → MED 21:13 → SUATTDRO 21:13 → MED 23:55
PROVIDERS: ADMIT Internal Medicine; ATTEND Internal Medicine

== ENCOUNTER 2022-11-01 19:18 | Observation (INO) ==
[2022-11-01] MEDS ORDERED: Lactated Ringers 1000 ml BAG 1,000 ML IV ONE (19:51)
[2022-11-01 20:17] LABS: ABS Eosinophils 0.1 10^3/uL (0.0-0.5); ABS Lymphocytes 0.6 10^3/uL (1.0-4.8); ABS Monocytes 0.5 10^3/uL (0.0-1.1); ABS Neutrophils 5.8 10^3/uL (1.5-7.6); ABS Nucleated RBC 0.01 10^3/ul; Eosinophil % 1.7 %; Hematocrit 38.2 % (38-53); Hemoglobin 12.7 g/dL (13.2-16.3); Lymphocyte % 8.7 %; Mean Corpuscular Hemoglobin 27.3 pg (27-33); Mean Corpuscular Hgb Conc 33.3 g/dL (31-36); Mean Corpuscular Volume 82.1 fL (80-97); Mean Platelet Volume 7.8 fL (7.5-11.2); Nucleated Red Blood Cells % 0.1 /100 WBC (0.0-0.4); Platelet Count 131 10^3/uL (150-450); Red Blood Count 4.65 10^6/uL (4.06-5.63); Red Cell Distribution Width 16.3 % (12-17)
[2022-11-01 20:35] LABS: Albumin 3.8 g/dL (3.2-5.2); Albumin/Globulin Ratio 2.1 (1-3); Calcium 8.6 mg/dL (8.6-10.3); Creatinine, Serum 1.09 mg/dL (0.67-1.17); Globulin 1.8 g/dL (2-4); Magnesium 1.9 mg/dL (1.9-2.7); Total Bilirubin 0.4 mg/dL (0.2-1.0); Total Protein 5.6 g/dL (6.4-8.9); eGFR CKD-EPI 85.3 (>60)
[2022-11-01 21:02] LABS: TSH Ultra Thyroid Stim Horm 3.41 mcIU/mL (0.34-5.60)
[2022-11-01] MEDS ORDERED: Iodixanol (CONTRAST) 320 MG/ML 100 ML SDV IV ONE (21:07)
[2022-11-01 21:58] LABS: High Sensitivity Troponin 1 Hr 5 pg/mL (<20)
[2022-11-01 22:21] LABS: Urine Appearance Clear; Urine Bilirubin Negative (Negative); Urine Blood Negative (Negative); Urine Color Yellow; Urine Glucose 3+(>=500 mg/dL) (Negative); Urine Ketones Negative (Negative); Urine Nitrite Negative (Negative); Urine Protein Negative (Negative); Urine Specific Gravity 1.018 (1.002-1.030); Urine Urobilinogen Negative (Negative)
[2022-11-01 22:27] LABS: Urine Bacteria Absent (Absent); Urine Red Blood Cell Absent (Absent); Urine Squamous Epithelial Cell Present (Absent); Urine White Blood Cell Trace(0-5/hpf) (Absent); Urine Yeast Present (Absent)
[2022-11-02] MEDS ORDERED: Albuterol HFA INHALER 8 gm MDI INH PRN (01:14)
[2022-11-02] MEDS ORDERED: Dextrose 50% Syringe 50 ml 25 GM/50 ML SYRINGE IV PUSH PRN (01:23)
[2022-11-02 03:38] LABS: Creatine Kinase 18 U/L (10-223)
[2022-11-02 06:41] LABS: Calcium 8.4 mg/dL (8.6-10.3); Creatinine, Serum 0.94 mg/dL (0.67-1.17); Magnesium 2.1 mg/dL (1.9-2.7); Potassium 4.4 mmol/L (3.5-5.0); eGFR CKD-EPI 101.9 (>60)
[2022-11-02] MEDS: Mometasone/Formoter 200/5 MDI INH SCH ×2 (08:02→19:35)
[2022-11-02] MEDS: Insulin GLARGINE 100 un/ml 10 ml VIAL SUBCUT SCH ×2 (08:04→21:16)
[2022-11-02] MEDS: Aspirin EC 81 mg TAB.EC (enteric coated) PO SCH (08:07)
[2022-11-02] MEDS: Empagliflozin 25 MG TAB PO SCH (08:09)
[2022-11-02] MEDS ORDERED: AMBRISENTAN 10 MG PO SCH (09:00)
[2022-11-02] MEDS ORDERED: TADALAFIL 20 MG PO SCH (09:00)
[2022-11-02] MEDS: AMBRISENTAN 10 MG PO SCH (09:12)
[2022-11-02] MEDS: PTO:Tadalafil 20 mg TAB (NF) PO SCH (09:12)
[2022-11-02] MEDS: DAPTOMYCIN IVPB SCH (09:35)
[2022-11-02] MEDS: NS 0.9% IVPB SCH (09:35)
[2022-11-02] MEDS: Saline FLUSH-CENTRAL 10 ML SYRINGE CENT\\PICC SCH (21:24)
[2022-11-02] MEDS: Miconazole 2% Top Powder BTL TOPICAL SCH (21:33)
[2022-11-03 05:28] LABS: ABS Eosinophils 0.2 10^3/uL (0.0-0.5); ABS Lymphocytes 0.8 10^3/uL (1.0-4.8); ABS Monocytes 0.5 10^3/uL (0.0-1.1); ABS Neutrophils 5.6 10^3/uL (1.5-7.6); Eosinophil % 2.4 %; Hematocrit 37.8 % (38-53); Hemoglobin 12.7 g/dL (13.2-16.3); Lymphocyte % 10.9 %; Mean Corpuscular Hemoglobin 27.7 pg (27-33); Mean Corpuscular Hgb Conc 33.5 g/dL (31-36); Mean Corpuscular Volume 82.7 fL (80-97); Mean Platelet Volume 7.6 fL (7.5-11.2); Platelet Count 131 10^3/uL (150-450); Red Blood Count 4.57 10^6/uL (4.06-5.63); Red Cell Distribution Width 16.6 % (12-17)
[2022-11-03 05:45] LABS: Calcium 8.7 mg/dL (8.6-10.3); Creatinine, Serum 0.86 mg/dL (0.67-1.17); Potassium 4.1 mmol/L (3.5-5.0); eGFR CKD-EPI 108.8 (>60)
[2022-11-03] MEDS: Mometasone/Formoter 200/5 MDI INH SCH ×2 (07:41→21:03)
[2022-11-03] MEDS: Empagliflozin 25 MG TAB PO SCH (09:13)
[2022-11-03] MEDS: Aspirin EC 81 mg TAB.EC (enteric coated) PO SCH (09:13)
[2022-11-03] MEDS: AMBRISENTAN 10 MG PO SCH (09:15)
[2022-11-03] MEDS: PTO:Tadalafil 20 mg TAB (NF) PO SCH (09:16)
[2022-11-03] MEDS: Insulin GLARGINE 100 un/ml 10 ml VIAL SUBCUT SCH ×2 (09:16→21:33)
[2022-11-03] MEDS: Miconazole 2% Top Powder BTL TOPICAL SCH ×3 (09:17→21:38)
[2022-11-03] MEDS ORDERED: DAPTOMYCIN IVPB ONE (09:30)
[2022-11-03] MEDS: DAPTOMYCIN IVPB SCH (11:38)
[2022-11-03] MEDS: NS 0.9% IVPB SCH (11:38)
[2022-11-03] MEDS: Saline FLUSH-CENTRAL 10 ML SYRINGE CENT\\PICC SCH ×2 (11:39→21:40)
[2022-11-04 06:13] LABS: Hematocrit 39.1 % (38-53); Hemoglobin 13.1 g/dL (13.2-16.3); Mean Corpuscular Hemoglobin 27.6 pg (27-33); Mean Corpuscular Hgb Conc 33.5 g/dL (31-36); Mean Corpuscular Volume 82.3 fL (80-97); Mean Platelet Volume 7.8 fL (7.5-11.2); Platelet Count 139 10^3/uL (150-450); Red Blood Count 4.75 10^6/uL (4.06-5.63); Red Cell Distribution Width 16.3 % (12-17); White Blood Count 6.6 10^3/uL (3.6-10.2)
[2022-11-04 06:37] LABS: Calcium 8.7 mg/dL (8.6-10.3)
[2022-11-04 06:42] LABS: Creatinine, Serum 0.93 mg/dL (0.67-1.17); eGFR CKD-EPI 103.2 (>60)
[2022-11-04] MEDS: Mometasone/Formoter 200/5 MDI INH SCH ×2 (08:39→19:48)
[2022-11-04] MEDS: Insulin GLARGINE 100 un/ml 10 ml VIAL SUBCUT SCH ×2 (09:44→23:49)
[2022-11-04] MEDS: Aspirin EC 81 mg TAB.EC (enteric coated) PO SCH (09:44)
[2022-11-04] MEDS: Empagliflozin 25 MG TAB PO SCH (09:45)
[2022-11-04] MEDS: PTO:Tadalafil 20 mg TAB (NF) PO SCH (09:46)
[2022-11-04] MEDS: AMBRISENTAN 10 MG PO SCH (09:46)
[2022-11-04] MEDS: Saline FLUSH-CENTRAL 10 ML SYRINGE CENT\\PICC SCH ×2 (09:50→23:54)
[2022-11-04] MEDS: Miconazole 2% Top Powder BTL TOPICAL SCH ×3 (09:50→23:51)
[2022-11-04] MEDS ORDERED: Lactated Ringers 1000 ml BAG 1,000 ML IV SCH (12:00)
[2022-11-04] MEDS ORDERED: Lactated Ringers 1000 ml BAG 1,000 ML IV ONE (13:08)
[2022-11-04] MEDS ORDERED: Sulfur Hexaflouride MICROSPHR 25 MG VIAL ONE (15:42)
[2022-11-05] MEDS ORDERED: Lactated Ringers 1000 ml BAG 1,000 ML IV ONE (08:16)
[2022-11-05] MEDS: Mometasone/Formoter 200/5 MDI INH SCH (08:17)
[2022-11-05] MEDS: Insulin GLARGINE 100 un/ml 10 ml VIAL SUBCUT SCH (09:50)
[2022-11-05] MEDS: Empagliflozin 25 MG TAB PO SCH (09:51)
[2022-11-05] MEDS: Aspirin EC 81 mg TAB.EC (enteric coated) PO SCH (09:51)
[2022-11-05] MEDS: AMBRISENTAN 10 MG PO SCH (09:52)
[2022-11-05] MEDS: PTO:Tadalafil 20 mg TAB (NF) PO SCH (09:52)
[2022-11-05] MEDS: Saline FLUSH-CENTRAL 10 ML SYRINGE CENT\\PICC SCH (09:52)
[2022-11-05] MEDS: Miconazole 2% Top Powder BTL TOPICAL SCH (09:53)
[2022-11-05 10:23] VITALS: BP 102/62
[2022-11-05 13:20] LABS: Calcium 8.7 mg/dL (8.6-10.3); Creatinine, Serum 0.92 mg/dL (0.67-1.17); Potassium 4.3 mmol/L (3.5-5.0); eGFR CKD-EPI 104.5 (>60)
[2022-11-05 19:54] LABS: Anaplasma phagocytophilum Negative (Negative); B. miyamotoi PCR, B Negative (Negative); Babesia divergens/MO-1 Negative (Negative); Babesia ducani Negative (Negative); Ehrlichia chaffeensis Negative (Negative); Ehrlichia ewingii/canis Negative (Negative); Ehrlichia muris eauclairensis Negative (Negative)
== END 2022-11-05 16:15 | disposition home or self-care (01) ==
LOC: ED 19:18 → EDHOLD 19:18 → SUATTDRO 11-02 00:03 → MEDTELE 11-02 14:30
PROVIDERS: ADMIT Student in an Organized Health Care Education/Training Program; ATTEND Hospitalist